=== PATIENT | male | born 1980 | race Two or more races ===

== ENCOUNTER 2020-09-21 13:47 | Emergency (ER) | payer MEDICAID ==
[~2020-09-21] VITALS: Ht 172.7 cm; Wt 70.8 kg
[2020-09-21 13:48] VITALS: BP 123/98
== END 2020-09-21 15:47 | disposition home or self-care (01) ==
LOC: ER 13:47
DX: S61.213A Laceration without foreign body of left middle finger without damage to nail, initial encounter (principal); S61.215A Laceration without foreign body of left ring finger without damage to nail, initial encounter; E11.9 Type 2 diabetes mellitus without complications; F12.10 Cannabis abuse, uncomplicated; W25.XXXA Contact with sharp glass, initial encounter; Y93.89 Activity, other specified; Y92.89 Other specified places as the place of occurrence of the external cause; Y99.8 Other external cause status
CPT/HCPCS: 12002; J2001

== ENCOUNTER 2021-10-20 08:27 | Emergency (ER) | payer MEDICAID ==
[~2021-10-20] VITALS: Ht 172.7 cm; Wt 72.6 kg
[2021-10-20 09:36] LABS: Basophils # (auto) 0 10 ^3/uL (0-0.2); Basophils % (auto) 0.4 % (0.0-2.0); Eosinophils # (auto) 0 10 ^3/uL (0-0.8); Hematocrit 42.5 % (41.0-53.0); Hemoglobin 14.4 g/dL (13.5-17.5); Lymphocytes # (auto) 1.2 10 ^3/uL (0.4-5.4); Lymphocytes % (auto) 10.5 % (10.0-50.0); Mean Corpuscular Hemoglobin 28.9 pg (28.0-32.0); Mean Corpuscular Hgb Conc. 33.8 g/dL (32.0-36.0); Mean Corpuscular Volume 85.4 fL (80.0-100.0); Monocytes # (auto) 0.5 10 ^3/uL (0-1.3); Monocytes % (auto) 4.8 % (0.0-12.0); Neutrophils # (auto) 9.5 10 ^3/uL (1.6-8.6); Neutrophils % (auto) 84.3 % (37.0-80.0); Red Blood Cells 4.98 10^6/uL (4.5-5.90); Red Cell Distribution Width 13.1 % (11.8-14.3); White Blood Cell 11.3 10^3/uL (4.4-10.8)
[2021-10-20] MEDS ORDERED: SODIUM CHLORIDE 0.9% 1,000 ML IV ONE ×2 (09:45)
[2021-10-20] MEDS ORDERED: InsuLIN REG 1unit/0.01ml Soln (100units/ml) IV ONE (09:45)
[2021-10-20 09:53] LABS: Albumin 3.7 g/dL (3.4-5.0); Calcium 8.6 mg/dL (8.5-10.1); Potassium 3.6 mmol/L (3.5-5.1)
[2021-10-20 09:57] LABS: BUN/Creatinine Ratio 20.9; Bilirubin, Total 0.6 mg/dL (0.2-1.0); Total Protein 7.6 g/dL (6.4-8.2)
[2021-10-20 15:00] VITALS: BP 149/88
[2021-10-20 16:08] LABS: Urine Bacteria NONE SEEN /hpf (None Seen); Urine Blood Negative /uL (Negative); Urine Specific Gravity 1.032 (1.001-1.035); Urine WBC 1 /hpf (0 - 3)
[2021-10-20] MEDS ORDERED: HYDROcodone-ACET 10/325MG TAB PO ONE (16:15)
== END 2021-10-20 16:28 | disposition home or self-care (01) ==
LOC: ER 08:27 → EDSEX 08:27 → EDBD 08:27 → ER 16:28
DX: R10.13 Epigastric pain (principal); R11.2 Nausea with vomiting, unspecified; E11.65 Type 2 diabetes mellitus with hyperglycemia; F12.10 Cannabis abuse, uncomplicated
CPT/HCPCS: 36415; 80053; 81001; 82962; 83690; 85025; 96360; 96361; 99285; J7030

== ENCOUNTER 2022-01-15 08:24 | Emergency (ER) | payer MEDICAID ==
[~2022-01-15] VITALS: Ht 172.7 cm; Wt 74.8 kg
[2022-01-15 10:21] LABS: Basophils # (auto) 0.1 10 ^3/uL (0-0.2); Basophils % (auto) 0.5 % (0.0-2.0); Eosinophils # (auto) 0 10 ^3/uL (0-0.8); Hematocrit 45.5 % (41.0-53.0); Hemoglobin 15.1 g/dL (13.5-17.5); Lymphocytes # (auto) 1.6 10 ^3/uL (0.4-5.4); Mean Corpuscular Hgb Conc. 33.2 g/dL (32.0-36.0); Mean Corpuscular Volume 87.3 fL (80.0-100.0); Monocytes # (auto) 0.6 10 ^3/uL (0-1.3); Monocytes % (auto) 5.8 % (0.0-12.0); Neutrophils # (auto) 8.6 10 ^3/uL (1.6-8.6); Neutrophils % (auto) 78.7 % (37.0-80.0); Nucleated Red Blood Cells % 0.2 %; Red Blood Cells 5.21 10^6/uL (4.5-5.90); Red Cell Distribution Width 13.3 % (11.8-14.3); White Blood Cell 10.9 10^3/uL (4.4-10.8)
[2022-01-15] MEDS ORDERED: SODIUM CHLORIDE 0.9% 2,000 ML IV ONE (10:30)
[2022-01-15] MEDS ORDERED: ALUM & MAG HYDROX-SIMETH LIQ(MAALOX) 30 ML PO ONE (10:30)
[2022-01-15] MEDS ORDERED: ONDANSETRON HCL 4 MG/2 ML VIAL IV ONE (10:30)
[2022-01-15] MEDS ORDERED: PANTOPRAZOLE 40 MG/10 ML VIAL INJ IV ONE (10:30)
[2022-01-15 10:32] LABS: BUN/Creatinine Ratio 20.9; Calcium 6.6 mg/dL (8.5-10.1); Magnesium 1.8 mg/dL (1.6-2.6)
[2022-01-15 10:39] LABS: INR 1.11 (0.9-1.15); Potassium 2.4 mmol/L (3.5-5.1)
[2022-01-15] MEDS ORDERED: hydrALAZINE HCL 10 MG TAB PO ONE (11:45)
[2022-01-15 12:12] VITALS: BP 142/88
[2022-01-15] MEDS ORDERED: OXYCODONE W/ ACETAMINOPHEN 5/325MG TABLET PO ONE (13:45)
[2022-01-15] MEDS ORDERED: FAMO-12 PO ×2 (13:48→14:17)
[2022-01-15] MEDS ORDERED: POTASSIUM EFFERVESENT TAB 25 MEQ GT ONE (14:00)
== END 2022-01-15 14:22 | disposition home or self-care (01) ==
LOC: ER 08:24 → EDBD 08:24 → ER 14:22
DX: K21.9 Gastro-esophageal reflux disease without esophagitis (principal); E11.9 Type 2 diabetes mellitus without complications; F12.10 Cannabis abuse, uncomplicated
CPT/HCPCS: 36415; 76705; 80048; 82150; 83690; 83735; 85025; 85610; 96361; 96374; 96375; 99285; C9113; J2405; J7030

== ENCOUNTER 2022-02-18 05:29 | Emergency (ER) | payer MEDICAID ==
[~2022-02-18 05:29] MED LIST: FAMO-12 PO
== END 2022-02-18 05:51 | disposition left against medical advice (07) ==
LOC: ER 05:29 → EDBD 05:29 → ER 05:51
DX: R10.9 Unspecified abdominal pain (principal); Z53.21 Procedure and treatment not carried out due to patient leaving prior to being seen by health care provider

== ENCOUNTER 2022-08-28 19:05 | Emergency (ER) | payer MEDICAID ==
[~2022-08-28] VITALS: Ht 172.7 cm; Wt 65.8 kg
[2022-08-28 19:33] VITALS: BP 143/91
[2022-08-28] MEDS ORDERED: ONDANSETRON HCL 4 MG/2 ML VIAL IV ONE (20:00)
[2022-08-28] MEDS ORDERED: SODIUM CHLORIDE 0.9% 1,000 ML IV ONE (20:00)
[2022-08-28 20:33] LABS: Basophils # (auto) 0.1 10 ^3/uL (0-0.2); Basophils % (auto) 0.7 % (0.0-2.0); Eosinophils # (auto) 0 10 ^3/uL (0-0.8); Hematocrit 48.9 % (41.0-53.0); Hemoglobin 16.3 g/dL (13.5-17.5); Lymphocytes # (auto) 1.5 10 ^3/uL (0.4-5.4); Lymphocytes % (auto) 13.3 % (10.0-50.0); Mean Corpuscular Hemoglobin 28.5 pg (28.0-32.0); Mean Corpuscular Hgb Conc. 33.4 g/dL (32.0-36.0); Mean Corpuscular Volume 85.6 fL (80.0-100.0); Monocytes # (auto) 0.7 10 ^3/uL (0-1.3); Monocytes % (auto) 6.1 % (0.0-12.0); Neutrophils # (auto) 9.1 10 ^3/uL (1.6-8.6); Neutrophils % (auto) 79.9 % (37.0-80.0); Red Blood Cells 5.72 10^6/uL (4.5-5.90); Red Cell Distribution Width 13.4 % (11.8-14.3); White Blood Cell 11.4 10^3/uL (4.4-10.8)
[2022-08-28 20:36] LABS: Urine Bacteria NONE SEEN /hpf (None Seen); Urine Blood Negative /uL (Negative); Urine Hyaline Cast MOD /lpf (0 - 2); Urine Mucus FEW (None Seen); Urine Specific Gravity 1.038 (1.001-1.035); Urine WBC 5 /hpf (0 - 3)
[2022-08-28 20:43] LABS: Albumin 4.5 g/dL (3.4-5.0); BUN/Creatinine Ratio 13.7; Calcium 9.7 mg/dL (8.5-10.1); Magnesium 2.4 mg/dL (1.6-2.6); Potassium 3.6 mmol/L (3.5-5.1)
[2022-08-28 20:46] LABS: Total Protein 8.4 g/dL (6.4-8.2)
[2022-08-28] MEDS ORDERED: INSULIN LISPRO (HUMAN) 100 UNITS/ML ML SC ONE (21:15)
== END 2022-08-29 00:25 | disposition left against medical advice (07) ==
LOC: ER 19:05
DX: R10.13 Epigastric pain (principal); R11.2 Nausea with vomiting, unspecified; F12.10 Cannabis abuse, uncomplicated; E11.9 Type 2 diabetes mellitus without complications; R06.02 Shortness of breath; Z20.822 Contact with and (suspected) exposure to COVID-19
CPT/HCPCS: 36415; 36600; 80053; 81001; 82805; 82962; 83735; 83880; 85025; 87426; 87804; 96361; 96372; 96374; 99284; J1815; J2405; J7030

== ENCOUNTER 2022-08-29 10:29 | Inpatient (IN) | payer MEDICAID ==
[~2022-08-29] VITALS: Ht 172.7 cm; Wt 68.0 kg
[2022-08-29 11:06] LABS: Basophils # (auto) 0.1 10 ^3/uL (0-0.2); Basophils % (auto) 0.7 % (0.0-2.0); Eosinophils # (auto) 0 10 ^3/uL (0-0.8); Eosinophils % (auto) 0.2 % (0.0-7.0); Hematocrit 44.8 % (41.0-53.0); Hemoglobin 15.3 g/dL (13.5-17.5); Lymphocytes # (auto) 1.9 10 ^3/uL (0.4-5.4); Lymphocytes % (auto) 18.8 % (10.0-50.0); Mean Corpuscular Hgb Conc. 34.1 g/dL (32.0-36.0); Mean Corpuscular Volume 85.1 fL (80.0-100.0); Monocytes # (auto) 0.6 10 ^3/uL (0-1.3); Monocytes % (auto) 6.2 % (0.0-12.0); Neutrophils # (auto) 7.3 10 ^3/uL (1.6-8.6); Neutrophils % (auto) 74.1 % (37.0-80.0); Nucleated Red Blood Cells % 0.1 %; Red Blood Cells 5.27 10^6/uL (4.5-5.90); Red Cell Distribution Width 13.3 % (11.8-14.3); White Blood Cell 9.9 10^3/uL (4.4-10.8)
[2022-08-29] MEDS ORDERED: SODIUM CHLORIDE 0.9% 1,000 ML IV ONE ×2 (11:15→14:45)
[2022-08-29] MEDS ORDERED: METOCLOPRAMIDE HCL 5MG/ml INJ 2ml VIAL IV ONE (11:15)
[2022-08-29] MEDS ORDERED: FAMOTIDINE (10MG/ML) 2ML VL IV ONE (11:15)
[2022-08-29] MEDS ORDERED: diphenhdrAMINE HCL 50 MG/1 ML VL IM ONE (11:15)
[2022-08-29 11:30] LABS: Calcium 9.3 mg/dL (8.5-10.1); Potassium 3.7 mmol/L (3.5-5.1)
[2022-08-29 11:34] LABS: BUN/Creatinine Ratio 21.6; Bilirubin, Total 1.2 mg/dL (0.2-1.0); Total Protein 7.8 g/dL (6.4-8.2)
[2022-08-29 14:38] LABS: Urine Blood Negative /uL (Negative); Urine Specific Gravity 1.027 (1.001-1.035)
[2022-08-29 14:52] LABS: Alcohol, Urine < 3.0 mg/dL (0-10); Amphetamine Screen, Urine NEGATIVE (NEGATIVE); Barbiturate Scree,Urine NEGATIVE (NEGATIVE); Benzodiazephine Screen, Urine NEGATIVE (NEGATIVE); Cannabinoid Screen, Urine POSITIVE (NEGATIVE); Cocaine Screen, Urine NEGATIVE (NEGATIVE); Opiate Scree,Urine NEGATIVE (NEGATIVE); Phencyclidine Screen, Urine NEGATIVE (NEGATIVE)
[2022-08-29] MEDS ORDERED: IOHEXOL 300 MG/ML 100ML BOTTLE IJ ONE (14:52)
[2022-08-29] MEDS ORDERED: DEXTROSE (50%) 50ML SYRG IV PRN (21:15)
[2022-08-29] MEDS ORDERED: MORPHINE SULFATE INJ 2 MG/ml SYRG IV PRN ×2 (21:15→22:15)
[2022-08-29] MEDS ORDERED: ONDANSETRON HCL 4 MG/2 ML VIAL IV PRN (21:15)
[2022-08-29] MEDS ORDERED: ACETAMINOPHEN 325 MG TAB PO PRN (21:15)
[2022-08-29] MEDS ORDERED: TEMAZEPAM 15 MG CAP PO PRN (21:15)
[2022-08-29] MEDS ORDERED: SODIUM CHLORIDE 0.9% 1,000 ML IV SCH (21:15)
[2022-08-29] MEDS ORDERED: NITROGLYCERIN 0.4 MG SL TAB SL PRN (22:15)
[2022-08-30] MEDS: HYDROcodone-ACET 5/325MG TAB PO PRN ×2 (00:06→10:58)
[2022-08-30] MEDS: ACCU-CHEK COMFORT CURVE STRIP VI SCH ×3 (00:18→12:00)
[2022-08-30] MEDS: InsuLIN REG 1unit/0.01ml Soln (100units/ml) SC SCH ×3 (00:27→12:00)
[2022-08-30 06:36] LABS: Basophils # (auto) 0.1 10 ^3/uL (0-0.2); Basophils % (auto) 0.6 % (0.0-2.0); Eosinophils # (auto) 0.1 10 ^3/uL (0-0.8); Eosinophils % (auto) 0.8 % (0.0-7.0); Hematocrit 42.4 % (41.0-53.0); Hemoglobin 14.1 g/dL (13.5-17.5); Lymphocytes # (auto) 2.9 10 ^3/uL (0.4-5.4); Mean Corpuscular Hemoglobin 28.1 pg (28.0-32.0); Mean Corpuscular Hgb Conc. 33.3 g/dL (32.0-36.0); Mean Corpuscular Volume 84.4 fL (80.0-100.0); Monocytes # (auto) 0.7 10 ^3/uL (0-1.3); Neutrophils # (auto) 4.6 10 ^3/uL (1.6-8.6); Neutrophils % (auto) 55.6 % (37.0-80.0); Nucleated Red Blood Cells % 0.1 %; Red Blood Cells 5.02 10^6/uL (4.5-5.90); Red Cell Distribution Width 13.3 % (11.8-14.3); White Blood Cell 8.2 10^3/uL (4.4-10.8)
[2022-08-30 07:16] LABS: Potassium 3.3 mmol/L (3.5-5.1)
[2022-08-30 07:27] LABS: Albumin 3.5 g/dL (3.4-5.0); BUN/Creatinine Ratio 28.2; Bilirubin, Total 1.1 mg/dL (0.2-1.0); Calcium 8.7 mg/dL (8.5-10.1); Total Protein 7.2 g/dL (6.4-8.2)
[2022-08-30] MEDS: FAMOTIDINE (10MG/ML) 2ML VL IV SCH ×2 (10:00→11:09)
[2022-08-30 15:25] VITALS: BP 141/83
== END 2022-08-30 16:22 | disposition home or self-care (01) | DRG 241 ==
LOC: ER 10:29 → EDUNIT# 10:29 → EDBD 10:29 → OVERFLOW 22:03
PROVIDERS: ADMIT Nurse Practitioner Family; ATTEND Nurse Practitioner Family
DX: K27.9 Peptic ulcer, site unspecified, unspecified as acute or chronic, without hemorrhage or perforation (principal); E11.10 Type 2 diabetes mellitus with ketoacidosis without coma; E87.1 Hypo-osmolality and hyponatremia; E86.0 Dehydration; Z20.822 Contact with and (suspected) exposure to COVID-19; K21.9 Gastro-esophageal reflux disease without esophagitis; Z79.4 Long term (current) use of insulin
CPT/HCPCS: 36415; 71046; 74177; 80053; 80307; 81001; 82010; 82962; 83036; 83690; 84484; 85025; 93005; 96361; 96372; 96374; 96375; G0378; J1815; J3490

== ENCOUNTER 2023-10-30 08:35 | Emergency (ER) | payer MEDICAID ==
[~2023-10-30] VITALS: Ht 172.7 cm; Wt 76.9 kg
[2023-10-30 09:23] VITALS: BP 134/83; PULSE 88; RESP 16; TEMP 97.9; O2SAT 97
[2023-10-30] MEDS: KETOROLAC TROMETH 60MG/2ML VIAL IM ONE (09:51)
[2023-10-30] MEDS ORDERED: IBUP1TAB5 PO (10:03)
[2023-10-30] MEDS ORDERED: CYCL-839 PO (10:03)
== END 2023-10-30 10:14 | disposition home or self-care (01) ==
LOC: ER 08:35
DX: S93.401A Sprain of unspecified ligament of right ankle, initial encounter (principal); E11.9 Type 2 diabetes mellitus without complications; Z79.899 Other long term (current) drug therapy; X50.1XXA Overexertion from prolonged static or awkward postures, initial encounter; Y93.89 Activity, other specified; Y92.89 Other specified places as the place of occurrence of the external cause; Y99.8 Other external cause status
CPT/HCPCS: 29515; 73610; 96372; 99283; J1885

== ENCOUNTER 2023-11-10 06:51 | Inpatient (IN) | payer MEDICAID ==
[~2023-11-10] VITALS: Ht 172.7 cm; Wt 83.8 kg
[~2023-11-10 06:51] MED LIST changes: +CYCL-839 PO
[2023-11-10 07:25] VITALS: PULSE 103; RESP 18; RESP 22; O2SAT 95
[2023-11-10 07:46] LABS: Basophils # (auto) 0 10 ^3/uL (0-0.2); Basophils % (auto) 0.1 % (0.0-2.0); Eosinophils # (auto) 0 10 ^3/uL (0-0.8); Hematocrit 48.1 % (41.0-53.0); Lymphocytes # (auto) 0.4 10 ^3/uL (0.4-5.4); Lymphocytes % (auto) 2.4 % (10.0-50.0); Mean Corpuscular Hemoglobin 28.7 pg (28.0-32.0); Mean Corpuscular Hgb Conc. 33.3 g/dL (32.0-36.0); Mean Corpuscular Volume 86.2 fL (80.0-100.0); Monocytes # (auto) 1.3 10 ^3/uL (0-1.3); Monocytes % (auto) 8.1 % (0.0-12.0); Neutrophils # (auto) 14.3 10 ^3/uL (1.6-8.6); Neutrophils % (auto) 89.4 % (37.0-80.0); Nucleated Red Blood Cells % 0.1 %; Red Blood Cells 5.58 10^6/uL (4.5-5.90); Red Cell Distribution Width 13.7 % (11.8-14.3)
[2023-11-10] MEDS: ONDANSETRON HCL 4 MG/2 ML VIAL IV ONE (07:59)
[2023-11-10] MEDS: MORPHINE SULFATE 4 MG/ML SYR/VIAL IV ONE (08:00)
[2023-11-10] MEDS: SODIUM CHLORIDE 0.9% 1,000 ML IVB ONE (08:00)
[2023-11-10 08:18] LABS: Alanine Aminotransferase 27 U/L (7-40); Albumin 5.2 g/dL (3.2-4.8); Alkaline Phosphatase 118 U/L (46-116); Anion Gap 13 (5-15); Aspartate Aminotransferase 20 U/L (13-40); BUN/Creatinine Ratio 12.3 (10.0-20.0); Bilirubin, Total 0.6 mg/dL (0.2-1.0); Blood Urea Nitrogen 31 mg/dL (9-23); Calcium 10.6 mg/dL (8.5-10.1); Carbon Dioxide 25 mmol/L (20-30); Chloride 96 mmol/L (98-107); Potassium 3.6 mmol/L (3.5-5.1); Sodium 134 mmol/L (136-145)
[2023-11-10 08:28] LABS: Glucose 536 mg/dL (74-106)
[2023-11-10 09:15] LABS: Lipase 35 U/L (12-53)
[2023-11-10] MEDS ORDERED: INSULIN DRIP 100 UNIT/100ML 100 ML IV SCH ×4 (09:15)
[2023-11-10] MEDS ORDERED: D5W/SOD CHL 0.45%/KCL 20MEQ 1,000 ML IV SCH ×2 (09:15)
[2023-11-10] MEDS ORDERED: POTASSIUM CHL 20MEQ/100ML 100 ML IV PRN (09:15)
[2023-11-10] MEDS ORDERED: POTASSIUM CHL 20MEQ/100ML 200 ML IV PRN (09:15)
[2023-11-10] MEDS ORDERED: SODIUM CHLORIDE 0.9% 1,000 ML IV SCH ×3 (09:15→15:15)
[2023-11-10] MEDS ORDERED: SOD CHL 0.9%/ KCL 20MEQ 1,000 ML IV SCH (09:15)
[2023-11-10] MEDS ORDERED: DEXTROSE (50%) 50ML SYRG IV PRN ×2 (09:15→11:00)
[2023-11-10] MEDS ORDERED: InsuLIN REG 1unit/0.01ml Soln (100units/ml) SC PRN ×2 (09:15)
[2023-11-10 09:36] LABS: Base Excess 1.4 mmol/L (-2.0-2.0)
[2023-11-10] MEDS: InsuLIN REG 1unit/0.01ml Soln (100units/ml) IV ONE (09:47)
[2023-11-10] MEDS: INSULIN LANTUS (GLARGINE) 1 /0.01ml (100units/ml) SC ONE (09:48)
[2023-11-10] MEDS: MAGNESIUM SULFATE 1GM/100ML 200 ML IV ONE (10:02)
[2023-11-10] MEDS ORDERED: ACCU-CHEK COMFORT CURVE STRIP VI SCH ×2 (10:30→12:00)
[2023-11-10] MEDS ORDERED: NITROGLYCERIN 0.4 MG SL TAB SL PRN (10:45)
[2023-11-10] MEDS ORDERED: MORPHINE SULFATE INJ 2 MG/ml SYRG IV PRN (10:45)
[2023-11-10 11:22] LABS: Chloride 102 mmol/L (98-107); Potassium 3.5 mmol/L (3.5-5.1); Sodium 141 mmol/L (136-145)
[2023-11-10 11:23] LABS: Anion Gap 14 (5-15); Calcium 10.2 mg/dL (8.5-10.1); Carbon Dioxide 25 mmol/L (20-30)
[2023-11-10 11:28] LABS: BUN/Creatinine Ratio 9.3 (10.0-20.0); Blood Urea Nitrogen 20 mg/dL (9-23)
[2023-11-10] MEDS ORDERED: InsuLIN REG 1unit/0.01ml Soln (100units/ml) SC SCH ×5 (11:30→22:00)
[2023-11-10 11:35] LABS: Glucose 327 mg/dL (74-106)
[2023-11-10 11:46] LABS: Lipase 40 U/L (12-53)
[2023-11-10] MEDS: PANTOPRAZOLE 40 MG/10 ML VIAL INJ IV ONE (11:46)
[2023-11-10 11:47] LABS: Amylase 47 U/L (30-118)
[2023-11-10 12:32] LABS: Blood Alcohol 4.1 mg/dL (<10)
[2023-11-10 12:40] LABS: Lactic Acid w/Reflex 2.6 mmol/L (0.4-2.0)
[2023-11-10] MEDS: InsuLIN REG 1unit/0.01ml Soln (100units/ml) SC SCH (13:11)
[2023-11-10] MEDS: ACCU-CHEK COMFORT CURVE STRIP VI SCH (13:12)
[2023-11-10] MEDS: SODIUM CHLORIDE 0.9% 1,000 ML IV SCH (13:12)
[2023-11-10] MEDS: metroNIDAZOLE 500MG/100ML 100 ML IV SCH (14:36)
[2023-11-10] MEDS: cefTRIAXone 1GM/50ML D5W 50 ML IV ONE (14:36)
[2023-11-10 16:09] LABS: Anion Gap 7 (5-15); Carbon Dioxide 28 mmol/L (20-30); Chloride 106 mmol/L (98-107); Potassium 3.4 mmol/L (3.5-5.1); Sodium 141 mmol/L (136-145)
[2023-11-10 16:10] LABS: Calcium 9.1 mg/dL (8.5-10.1)
[2023-11-10 16:15] LABS: BUN/Creatinine Ratio 14.3 (10.0-20.0); Blood Urea Nitrogen 18 mg/dL (9-23)
[2023-11-10 16:19] LABS: Glucose 139 mg/dL (74-106)
[2023-11-10] MEDS: POTASSIUM CHL 20 Meq TABLET PO ONE (17:57)
[2023-11-10 20:00] VITALS: PULSE 89; RESP 20; O2SAT 100
[2023-11-10 20:15] LABS: Free T3 4.4 pg/mL (2.3-4.2)
[2023-11-10 20:16] LABS: Free T4 (Free Thyroxine) 1.48 ng/dL (0.89-1.76)
[2023-11-10 21:21] LABS: Chloride 105 mmol/L (98-107); Potassium 3.9 mmol/L (3.5-5.1); Sodium 140 mmol/L (136-145)
[2023-11-10 21:22] LABS: Anion Gap 7 (5-15); Calcium 9.1 mg/dL (8.5-10.1); Carbon Dioxide 28 mmol/L (20-30)
[2023-11-10 21:27] LABS: BUN/Creatinine Ratio 13.5 (10.0-20.0); Blood Urea Nitrogen 15 mg/dL (9-23); Glucose 112 mg/dL (74-106)
[2023-11-10] MEDS: PANTOPRAZOLE 40 MG/10 ML VIAL INJ IV SCH (21:42)
[2023-11-10] MEDS: MORPHINE SULFATE INJ 2 MG/ml SYRG IV PRN (22:40)
[2023-11-11 03:36] LABS: Urine Bacteria NONE SEEN /hpf (None Seen); Urine Blood Negative /uL (Negative); Urine Clarity Clear (Clear); Urine Color Yellow (Yellow); Urine Hyaline Cast FEW /lpf (0 - 2); Urine Protein, UAD 1+ (Negative); Urine Specific Gravity 1.027 (1.001-1.035); Urine Urobilinogen Normal (Negative); Urine WBC 1 /hpf (0 - 3)
[2023-11-11 03:38] LABS: Amphetamine Screen, Urine Neg (NEGATIVE); Barbiturate Scree,Urine Neg (NEGATIVE); Benzodiazephine Screen, Urine Neg (NEGATIVE); Cannabinoid Screen, Urine Pos (NEGATIVE); Cocaine Screen, Urine Neg (NEGATIVE); Opiate Scree,Urine Neg (NEGATIVE); Phencyclidine Screen, Urine Neg (NEGATIVE)
[2023-11-11 03:39] LABS: Creatinine, Urine 223.69 mg/dL (30.0-125.0)
[2023-11-11 05:07] LABS: Rapid Influenza A Negative (Negative); Rapid Influenza B Negative (Negative)
[2023-11-11 05:08] LABS: COVID19 ANTIGEN SOFIA FIA POSITIVE (NEGATIVE)
[2023-11-11 05:47] VITALS: PULSE 73; RESP 8; O2SAT 97
[2023-11-11 06:00] LABS: Basophils # (auto) 0 10 ^3/uL (0-0.2); Basophils % (auto) 0.3 % (0.0-2.0); Eosinophils # (auto) 0 10 ^3/uL (0-0.8); Eosinophils % (auto) 0.1 % (0.0-7.0); Hematocrit 44.4 % (41.0-53.0); Hemoglobin 14.5 g/dL (13.5-17.5); Lymphocytes # (auto) 1.3 10 ^3/uL (0.4-5.4); Lymphocytes % (auto) 13.3 % (10.0-50.0); Mean Corpuscular Hemoglobin 28.7 pg (28.0-32.0); Mean Corpuscular Hgb Conc. 32.7 g/dL (32.0-36.0); Mean Corpuscular Volume 87.7 fL (80.0-100.0); Monocytes # (auto) 1.3 10 ^3/uL (0-1.3); Monocytes % (auto) 13.9 % (0.0-12.0); Neutrophils % (auto) 72.4 % (37.0-80.0); Red Blood Cells 5.06 10^6/uL (4.5-5.90); Red Cell Distribution Width 14.1 % (11.8-14.3); White Blood Cell 9.6 10^3/uL (4.4-10.8)
[2023-11-11 06:11] LABS: Chloride 104 mmol/L (98-107); Potassium 3.5 mmol/L (3.5-5.1); Sodium 139 mmol/L (136-145)
[2023-11-11 06:12] LABS: Anion Gap 9 (5-15); Carbon Dioxide 26 mmol/L (20-30)
[2023-11-11 06:13] LABS: Calcium 8.6 mg/dL (8.7-10.4)
[2023-11-11 06:18] LABS: Blood Urea Nitrogen 16 mg/dL (9-23); Glucose 137 mg/dL (74-106)
[2023-11-11 08:00] VITALS: PULSE 74; RESP 17; O2SAT 95
[2023-11-11] MEDS ORDERED: DEXTROSE (50%) 50ML SYRG IV PRN (08:15)
[2023-11-11] MEDS ORDERED: cefTRIAXone 1GM/50ML D5W 50 ML IV SCH (09:00)
[2023-11-11] MEDS: INSULIN LANTUS (GLARGINE) 1 /0.01ml (100units/ml) SC SCH (10:33)
[2023-11-11] MEDS: ACCU-CHEK COMFORT CURVE STRIP VI SCH (12:35)
[2023-11-11] MEDS: InsuLIN REG 1unit/0.01ml Soln (100units/ml) SC SCH (12:38)
[2023-11-11] MEDS ORDERED: INSU100I4 SC (16:24)
[2023-11-11] MEDS ORDERED: INSUINJ37 SC (16:24)
[2023-11-11 17:00] VITALS: BP 111/71; PULSE 84; RESP 17; TEMP 98.7; O2SAT 99
[2023-11-11 18:03] VITALS: PULSE 84; RESP 16; O2SAT 96
[2023-11-11 20:00] VITALS: BP 149/70; PULSE 75; PULSE 98; RESP 18; TEMP 98.6; O2SAT 100
[2023-11-11 22:00] VITALS: BP 149/70; PULSE 98; RESP 18; TEMP 98.6; O2SAT 100
[2023-11-12 04:57] LABS: Basophils # (auto) 0 10 ^3/uL (0-0.2); Basophils % (auto) 0.3 % (0.0-2.0); Eosinophils # (auto) 0 10 ^3/uL (0-0.8); Hemoglobin 14.9 g/dL (13.5-17.5); Lymphocytes # (auto) 1.4 10 ^3/uL (0.4-5.4); Lymphocytes % (auto) 17.1 % (10.0-50.0); Mean Corpuscular Hemoglobin 28.7 pg (28.0-32.0); Mean Corpuscular Hgb Conc. 33.1 g/dL (32.0-36.0); Mean Corpuscular Volume 86.8 fL (80.0-100.0); Monocytes # (auto) 0.8 10 ^3/uL (0-1.3); Monocytes % (auto) 9.6 % (0.0-12.0); Red Blood Cells 5.18 10^6/uL (4.5-5.90); Red Cell Distribution Width 13.7 % (11.8-14.3); White Blood Cell 8.2 10^3/uL (4.4-10.8)
[2023-11-12 05:00] VITALS: BP 158/90; PULSE 87; RESP 19; TEMP 98; O2SAT 99
[2023-11-12 05:10] LABS: Anion Gap 7 (5-15); Carbon Dioxide 29 mmol/L (20-30); Chloride 100 mmol/L (98-107); Sodium 136 mmol/L (136-145)
[2023-11-12 05:16] LABS: Glucose 129 mg/dL (74-106)
[2023-11-12 05:17] LABS: BUN/Creatinine Ratio 12.4 (10.0-20.0); Blood Urea Nitrogen 12 mg/dL (9-23); Magnesium 1.9 mg/dL (1.6-2.6)
[2023-11-12 07:30] VITALS: BP 138/74; PULSE 87; RESP 18; TEMP 98; O2SAT 99
[2023-11-12 08:00] VITALS: PULSE 74
[2023-11-12 08:32] VITALS: BP 135/77; PULSE 79; RESP 18; TEMP 98.3; O2SAT 100
[2023-11-12] MEDS ORDERED: ASCO500T11 PO (09:46)
[2023-11-12] MEDS ORDERED: PANT40TA2 PO (09:46)
[2023-11-12] MEDS ORDERED: SUCR1TAB22 OR (09:46)
[2023-11-12 12:47] VITALS: BP 133/78; PULSE 74; RESP 17; TEMP 98; O2SAT 96
== END 2023-11-12 14:00 | disposition left against medical advice (07) | DRG 241 ==
LOC: EDBD 06:51 → ER 06:51 → TELE 10:43 → TELE-CENTR 11-11 14:22
PROVIDERS: ADMIT Internal Medicine Geriatric Medicine; ATTEND Internal Medicine Geriatric Medicine
DX: K27.9 Peptic ulcer, site unspecified, unspecified as acute or chronic, without hemorrhage or perforation (principal); U07.1 COVID-19; N17.9 Acute kidney failure, unspecified; E10.21 Type 1 diabetes mellitus with diabetic nephropathy; E86.0 Dehydration; E87.6 Hypokalemia; F32.A Depression, unspecified; E07.81 Sick-euthyroid syndrome; E78.5 Hyperlipidemia, unspecified; E10.65 Type 1 diabetes mellitus with hyperglycemia; K21.9 Gastro-esophageal reflux disease without esophagitis; Z20.822 Contact with and (suspected) exposure to COVID-19; Z79.4 Long term (current) use of insulin; Z87.11 Personal history of peptic ulcer disease
CPT/HCPCS: 36415; 36600; 71046; 74176; 76775; 80048; 80053; 80307; 80320; 81001; 82010; 82150; 82570; 82805; 82962; 83036; 83605; 83615; 83690; 83735; 83880; 83930; 84100; 84300; 84439; 84443; 84478; 84481; 84484; 85025; 87040; 87081; 87426; 87804; 93005; 96361; 96365; 96372; 96375; 99291; C9113; G0378; J1815; J2405; J3490

== ENCOUNTER 2023-12-18 12:01 | Inpatient (IN) | payer MEDICAID ==
[~2023-12-18] VITALS: Ht 172.7 cm; Wt 71.0 kg
[~2023-12-18 12:01] MED LIST changes: +ASCO500T11 PO; +INSU100I4 SC; +INSUINJ37 SC; +PANT40TA2 PO; +SUCR1TAB31 OR
[2023-12-18 12:30] VITALS: PULSE 104; RESP 19; O2SAT 97
[2023-12-18] MEDS: SODIUM CHLORIDE 0.9% 2,000 ML IV ONE (13:20)
[2023-12-18] MEDS ORDERED: SODIUM CHLORIDE 0.9% 1,000 ML IVB ONE (13:30)
[2023-12-18] MEDS: HYDROmorphone HCL 2 MG/ML VL/or syr IV ONE ×2 (13:44→18:31)
[2023-12-18] MEDS: ONDANSETRON HCL 4 MG/2 ML VIAL IV ONE (13:52)
[2023-12-18 14:18] LABS: Basophils # (auto) 0 10 ^3/uL (0-0.2); Basophils % (auto) 0.1 % (0.0-2.0); Eosinophils # (auto) 0 10 ^3/uL (0-0.8); Hematocrit 38.6 % (41.0-53.0); Hemoglobin 12.9 g/dL (13.5-17.5); Lymphocytes % (auto) 10.1 % (10.0-50.0); Mean Corpuscular Hemoglobin 29.1 pg (28.0-32.0); Mean Corpuscular Hgb Conc. 33.3 g/dL (32.0-36.0); Mean Corpuscular Volume 87.2 fL (80.0-100.0); Monocytes # (auto) 0.6 10 ^3/uL (0-1.3); Monocytes % (auto) 6.7 % (0.0-12.0); Neutrophils % (auto) 83.1 % (37.0-80.0); Red Blood Cells 4.43 10^6/uL (4.5-5.90); Red Cell Distribution Width 13.4 % (11.8-14.3); White Blood Cell 9.7 10^3/uL (4.4-10.8)
[2023-12-18 14:38] LABS: Alanine Aminotransferase 14 U/L (7-40); Alkaline Phosphatase 90 U/L (46-116); Anion Gap 4 (5-15); Aspartate Aminotransferase 14 U/L (13-40); BUN/Creatinine Ratio 11.6 (10.0-20.0); Blood Urea Nitrogen 17 mg/dL (9-23); Calcium 8.7 mg/dL (8.7-10.4); Carbon Dioxide 31 mmol/L (20-30); Chloride 96 mmol/L (98-107); Lipase 57 U/L (12-53); Magnesium 1.9 mg/dL (1.6-2.6); Potassium 3.7 mmol/L (3.5-5.1); Sodium 131 mmol/L (136-145)
[2023-12-18 14:39] LABS: Bilirubin, Total 0.5 mg/dL (0.2-1.0); Total Protein 6.7 g/dL (5.7-8.2)
[2023-12-18 14:47] LABS: Glucose 524 mg/dL (74-106)
[2023-12-18] MEDS: SODIUM CHLORIDE 0.9% 1,000 ML IV ONE ×2 (14:53→15:57)
[2023-12-18] MEDS: InsuLIN REG 1unit/0.01ml Soln (100units/ml) IV ONE (15:24)
[2023-12-18 15:50] LABS: Urine Bacteria FEW /hpf (None Seen); Urine Blood Negative /uL (Negative); Urine Clarity Clear (Clear); Urine Color Colorless (Yellow); Urine Protein, UAD Negative (Negative); Urine Specific Gravity 1.031 (1.001-1.035); Urine Urobilinogen Normal (Negative); Urine WBC 1 /hpf (0 - 3)
[2023-12-18] MEDS ORDERED: ONDANSETRON HCL 4 MG/2 ML VIAL IV PRN (18:45)
[2023-12-18] MEDS ORDERED: DOCUSATE SOD 100 MG CAP PO PRN (18:45)
[2023-12-18 19:30] VITALS: PULSE 94; RESP 16; O2SAT 100
[2023-12-18] MEDS: SODIUM CHLORIDE 0.9% 1,000 ML IV SCH (19:30)
[2023-12-18] MEDS ORDERED: DEXTROSE (50%) 50ML SYRG IV PRN (21:45)
[2023-12-18 22:00] VITALS: BP 148/93; PULSE 90; RESP 17; TEMP 98.6; O2SAT 100
[2023-12-18] MEDS: ACCU-CHEK COMFORT CURVE STRIP VI SCH (22:00)
[2023-12-18] MEDS: HYDROmorphone HCL 2 MG/ML VL/or syr IV PRN (22:31)
[2023-12-18] MEDS: SUCRALFATE 1 GM TAB PO SCH (22:31)
[2023-12-19] VITALS (9 sets, daily range): BP systolic 105–148; BP diastolic 76–93; PULSE 73–90; RESP 17–20; TEMP 97.4–98.8; O2SAT 99–100
[2023-12-19] MEDS ORDERED: PNEUMOCOCCAL VACC POLYS 25 MCG/0.5 ML VIAL IM ONE (02:15)
[2023-12-19] MEDS: InsuLIN REG 1unit/0.01ml Soln (100units/ml) SC SCH ×3 (06:35→22:05)
[2023-12-19 08:14] LABS: Basophils # (auto) 0 10 ^3/uL (0-0.2); Basophils % (auto) 0.4 % (0.0-2.0); Eosinophils # (auto) 0 10 ^3/uL (0-0.8); Eosinophils % (auto) 0.5 % (0.0-7.0); Hematocrit 36.8 % (41.0-53.0); Hemoglobin 12.4 g/dL (13.5-17.5); Lymphocytes # (auto) 2.3 10 ^3/uL (0.4-5.4); Lymphocytes % (auto) 24.7 % (10.0-50.0); Mean Corpuscular Hemoglobin 29.2 pg (28.0-32.0); Mean Corpuscular Hgb Conc. 33.8 g/dL (32.0-36.0); Mean Corpuscular Volume 86.3 fL (80.0-100.0); Monocytes # (auto) 0.6 10 ^3/uL (0-1.3); Monocytes % (auto) 6.4 % (0.0-12.0); Neutrophils # (auto) 6.4 10 ^3/uL (1.6-8.6); Nucleated Red Blood Cells % 0.1 %; Red Blood Cells 4.26 10^6/uL (4.5-5.90); White Blood Cell 9.5 10^3/uL (4.4-10.8)
[2023-12-19 08:43] LABS: Alanine Aminotransferase 16 U/L (7-40); Albumin 3.6 g/dL (3.2-4.8); Alkaline Phosphatase 76 U/L (46-116); Anion Gap 3 (5-15); Aspartate Aminotransferase 19 U/L (13-40); BUN/Creatinine Ratio 14.3 (10.0-20.0); Bilirubin, Total 0.8 mg/dL (0.2-1.0); Blood Urea Nitrogen 10 mg/dL (9-23); Calcium 8.3 mg/dL (8.5-10.1); Carbon Dioxide 30 mmol/L (20-30); Chloride 103 mmol/L (98-107); Potassium 3.5 mmol/L (3.5-5.1); Total Protein 5.6 g/dL (5.7-8.2)
[2023-12-19 09:00] LABS: Glucose 190 mg/dL (74-106); Sodium 136 mmol/L (136-145)
[2023-12-19 09:19] LABS: Lipase 53 U/L (12-53)
[2023-12-19] MEDS: PANTOPRAZOLE 40 MG/10 ML VIAL INJ IV SCH (09:19)
[2023-12-19] MEDS ORDERED: DEXTROSE (50%) 50ML SYRG IV PRN (12:30)
[2023-12-19] MEDS ORDERED: METR-344 PO (15:49)
[2023-12-19] MEDS ORDERED: ZOFR4T PO (15:49)
[2023-12-19] MEDS ORDERED: CIPR-173 PO (15:49)
[2023-12-19] MEDS ORDERED: INSLANTI SC (15:49)
[2023-12-19] MEDS ORDERED: METH-1181 PO (15:49)
[2023-12-19] MEDS: ACCU-CHEK COMFORT CURVE STRIP VI SCH (16:58)
[2023-12-20] VITALS (8 sets, daily range): BP systolic 132–159; BP diastolic 60–98; PULSE 70–83; RESP 17–20; TEMP 97.7–99.4; O2SAT 97–100
[2023-12-21 01:28] VITALS: BP 158/94; PULSE 92; RESP 18; TEMP 98.4; O2SAT 97
[2023-12-21 05:18] VITALS: BP 149/95; PULSE 87; RESP 18; TEMP 98; O2SAT 98
[2023-12-21 08:00] VITALS: BP 155/92; PULSE 83; RESP 17; TEMP 98.1; O2SAT 97
[2023-12-21] MEDS ORDERED: PANT40T PO (08:36)
[2023-12-21] MEDS ORDERED: SUCR1TAB PO (08:36)
[2023-12-21 09:00] VITALS: BP 155/92; PULSE 83; RESP 17; TEMP 98.1; O2SAT 98
[2023-12-21 10:18] VITALS: TEMP 36.7
[2023-12-25] MEDS ORDERED: TRAM-626 PO (18:22)
[2023-12-29] MEDS ORDERED: BACDST PO (11:19)
== END 2023-12-21 11:16 | disposition home or self-care (01) | DRG 282 ==
LOC: ER 12:01 → CENTRAL 18:46 → OVERFLOW 18:46 → CENTRAL 21:37
PROVIDERS: ADMIT Family Medicine; ATTEND Family Medicine
DX: K85.90 Acute pancreatitis without necrosis or infection, unspecified (principal); N17.0 Acute kidney failure with tubular necrosis; E11.00 Type 2 diabetes mellitus with hyperosmolarity without nonketotic hyperglycemic-hyperosmolar coma (NKHHC); E86.0 Dehydration; G89.29 Other chronic pain; E78.00 Pure hypercholesterolemia, unspecified; K21.9 Gastro-esophageal reflux disease without esophagitis; I10 Essential (primary) hypertension; T38.3X6A Underdosing of insulin and oral hypoglycemic [antidiabetic] drugs, initial encounter; Z91.148 Patient's other noncompliance with medication regimen for other reason; Z79.4 Long term (current) use of insulin; Z80.1 Family history of malignant neoplasm of trachea, bronchus and lung; Z87.11 Personal history of peptic ulcer disease; Z91.138 Patient's unintentional underdosing of medication regimen for other reason; Y92.89 Other specified places as the place of occurrence of the external cause
CPT/HCPCS: 36415; 71046; 74176; 80053; 81001; 82010; 82962; 83036; 83690; 83735; 84484; 85025; 87081; 93005; 96374; 96375; C9113; G0378; J1815; J2405

== ENCOUNTER 2024-01-12 15:52 | Emergency (ER) | payer MEDICAID ==
[~2024-01-12] VITALS: Ht 172.7 cm; Wt 79.8 kg
[~2024-01-12 15:52] MED LIST changes: +BACDST PO; +CIPR-173 PO; -FAMO-12 PO; +INSLANTI SC; -INSUINJ37 SC; +METH-1181 PO; +METR-344 PO; +PANT40T PO; +SUCR1TAB PO; +TRAM-626 PO; +ZOFR4T PO
[2024-01-12 16:32] VITALS: BP 132/92; PULSE 106; RESP 18; O2SAT 99
[2024-01-12] MEDS ORDERED: ONDANSETRON ODT 4 MG TAB PO ONE (17:15)
== END 2024-01-12 19:30 | disposition left against medical advice (07) ==
LOC: ER 15:52 → EDBD 15:52 → ER 19:30
DX: R10.9 Unspecified abdominal pain (principal); Z53.21 Procedure and treatment not carried out due to patient leaving prior to being seen by health care provider

== ENCOUNTER 2024-01-18 23:08 | Inpatient (IN) | payer MEDICAID ==
[~2024-01-18] VITALS: Ht 172.7 cm; Wt 74.4 kg
[2024-01-18] MEDS: SODIUM CHLORIDE 0.9% 1,000 ML IV ONE (23:58)
[2024-01-18] MEDS: PANTOPRAZOLE 40 MG/10 ML VIAL INJ IV ONE (23:58)
[2024-01-18] MEDS: ONDANSETRON HCL 4 MG/2 ML VIAL IV ONE (23:59)
[2024-01-19 00:09] LABS: Eosinophils # (auto) 0 10 ^3/uL (0-0.8); Hemoglobin 16.4 g/dL (13.5-17.5); Lymphocytes # (auto) 1.2 10 ^3/uL (0.4-5.4); Monocytes # (auto) 0.7 10 ^3/uL (0-1.3); Nucleated Red Blood Cells % 0.1 %
[2024-01-19 00:10] LABS: Basophils # (auto) 0 10 ^3/uL (0-0.2); Basophils % (auto) 0.2 % (0.0-2.0); Hematocrit 48.7 % (41.0-53.0); Lymphocytes % (auto) 8.5 % (10.0-50.0); Mean Corpuscular Hgb Conc. 33.7 g/dL (32.0-36.0); Mean Corpuscular Volume 86.2 fL (80.0-100.0); Neutrophils # (auto) 12.4 10 ^3/uL (1.6-8.6); Neutrophils % (auto) 86.3 % (37.0-80.0); Red Blood Cells 5.65 10^6/uL (4.5-5.90); Red Cell Distribution Width 13.7 % (11.8-14.3); White Blood Cell 14.4 10^3/uL (4.4-10.8)
[2024-01-19 00:14] LABS: Alanine Aminotransferase 28 U/L (7-40); Albumin 5.2 g/dL (3.2-4.8); Alkaline Phosphatase 105 U/L (46-116); Amylase 114 U/L (30-118); Anion Gap 12 (5-15); Aspartate Aminotransferase 28 U/L (13-40); BUN/Creatinine Ratio 4.6 (10.0-20.0); Blood Urea Nitrogen 10 mg/dL (9-23); Calcium 11.4 mg/dL (8.7-10.4); Carbon Dioxide 24 mmol/L (20-30); Chloride 99 mmol/L (98-107); Glucose 184 mg/dL (74-106); Lipase 45 U/L (12-53); Potassium 3.9 mmol/L (3.5-5.1); Sodium 135 mmol/L (136-145)
[2024-01-19 00:15] LABS: Bilirubin, Total 0.8 mg/dL (0.2-1.0); Total Protein 8.8 g/dL (5.7-8.2)
[2024-01-19] MEDS: MORPHINE SULFATE 4 MG/ML SYR/VIAL IV ONE (01:30)
[2024-01-19 02:25] LABS: Lactic Acid w/Reflex 2.9 mmol/L (0.4-2.0)
[2024-01-19] MEDS ORDERED: TEMAZEPAM 15 MG CAP PO PRN (06:15)
[2024-01-19] MEDS ORDERED: ACETAMINOPHEN 325 MG TAB PO PRN (06:15)
[2024-01-19] MEDS: SODIUM CHLORIDE 0.9% 1,000 ML IV ONE (06:30)
[2024-01-19] MEDS: SUCRALFATE 1 GM TAB PO SCH (07:00)
[2024-01-19] MEDS: MORPHINE SULFATE INJ 2 MG/ml SYRG IV PRN (08:12)
[2024-01-19] MEDS: PANTOPRAZOLE 40 MG TAB PO SCH (10:00)
[2024-01-19] MEDS: HYDROcodone-ACET 5/325MG TAB PO PRN (11:55)
[2024-01-19] MEDS: ONDANSETRON HCL 4 MG/2 ML VIAL IV PRN (11:57)
[2024-01-19] MEDS: cefTRIAXone 1GM/50ML D5W 50 ML IV SCH (11:57)
[2024-01-19] MEDS: ACCU-CHEK COMFORT CURVE STRIP VI SCH (12:12)
[2024-01-19] MEDS: InsuLIN REG 1unit/0.01ml Soln (100units/ml) SC SCH (12:12)
[2024-01-19 15:30] VITALS: PULSE 71; RESP 19; O2SAT 98
[2024-01-19] MEDS: SODIUM CHLORIDE 0.9% 1,000 ML IV SCH (16:33)
[2024-01-19] MEDS: DEXTROSE (50%) 50ML SYRG IV PRN (17:55)
[2024-01-19 19:34] VITALS: BP 123/82; PULSE 77; RESP 18; TEMP 98.1
[2024-01-19 19:35] VITALS: RESP 18
[2024-01-19 20:00] VITALS: BP 123/82; PULSE 77; RESP 18; TEMP 98.1; O2SAT 99
[2024-01-19 20:41] LABS: Urine Bacteria MANY /hpf (None Seen); Urine Blood TRACE /uL (Negative); Urine Clarity Ex.Turbid (Clear); Urine Color Yellow (Yellow); Urine Mucus FEW (None Seen); Urine Protein, UAD 2+ (Negative); Urine Specific Gravity 1.025 (1.001-1.035); Urine Urobilinogen Normal (Negative); Urine WBC 5 /hpf (0 - 3); Urine pH 5.5 (5.0-9.0)
[2024-01-19] MEDS: metroNIDAZOLE 500MG/100ML 100 ML IV SCH (21:51)
[2024-01-20] VITALS (8 sets, daily range): BP systolic 109–150; BP diastolic 66–98; PULSE 72–86; RESP 14–20; TEMP 98.1–98.5; O2SAT 98–100
[2024-01-20 06:07] LABS: Basophils # (auto) 0 10 ^3/uL (0-0.2); Basophils % (auto) 0.5 % (0.0-2.0); Eosinophils # (auto) 0.1 10 ^3/uL (0-0.8); Eosinophils % (auto) 1.3 % (0.0-7.0); Hematocrit 41.8 % (41.0-53.0); Hemoglobin 13.8 g/dL (13.5-17.5); Lymphocytes # (auto) 1.6 10 ^3/uL (0.4-5.4); Lymphocytes % (auto) 23.2 % (10.0-50.0); Mean Corpuscular Volume 87.7 fL (80.0-100.0); Monocytes # (auto) 0.5 10 ^3/uL (0-1.3); Monocytes % (auto) 7.3 % (0.0-12.0); Neutrophils # (auto) 4.8 10 ^3/uL (1.6-8.6); Neutrophils % (auto) 67.7 % (37.0-80.0); Nucleated Red Blood Cells % 0.1 %; Red Blood Cells 4.76 10^6/uL (4.5-5.90); Red Cell Distribution Width 13.8 % (11.8-14.3); White Blood Cell 7.1 10^3/uL (4.4-10.8)
[2024-01-20 06:24] LABS: Alanine Aminotransferase 18 U/L (7-40); Albumin 3.9 g/dL (3.2-4.8); Alkaline Phosphatase 78 U/L (46-116); Anion Gap 5 (5-15); Aspartate Aminotransferase 22 U/L (13-40); BUN/Creatinine Ratio 12.7 (10.0-20.0); Bilirubin, Total 0.7 mg/dL (0.2-1.0); Blood Urea Nitrogen 13 mg/dL (9-23); Carbon Dioxide 29 mmol/L (20-30); Chloride 103 mmol/L (98-107); Glucose 128 mg/dL (74-106); Potassium 4.1 mmol/L (3.5-5.1); Sodium 137 mmol/L (136-145); Total Protein 6.5 g/dL (5.7-8.2)
[2024-01-20 06:53] LABS: Erythrocyte Sedimentation Rate 5 mm/hr (0-20)
[2024-01-20] MEDS: SODIUM CHLORIDE 0.9% 1,000 ML IV SCH (14:30)
[2024-01-20] MEDS: OXYCODONE W/ ACETAMINOPHEN 5/325MG TABLET PO PRN (17:45)
[2024-01-21 01:00] VITALS: BP 142/74; PULSE 94; RESP 16; TEMP 98.2; O2SAT 93
[2024-01-21 05:00] VITALS: BP 145/95; PULSE 82; RESP 14; TEMP 98.4; O2SAT 100
[2024-01-21 06:21] LABS: Basophils # (auto) 0 10 ^3/uL (0-0.2); Basophils % (auto) 0.7 % (0.0-2.0); Eosinophils # (auto) 0.1 10 ^3/uL (0-0.8); Eosinophils % (auto) 1.4 % (0.0-7.0); Hematocrit 41.4 % (41.0-53.0); Hemoglobin 13.8 g/dL (13.5-17.5); Lymphocytes # (auto) 1.6 10 ^3/uL (0.4-5.4); Lymphocytes % (auto) 26.9 % (10.0-50.0); Mean Corpuscular Hemoglobin 28.9 pg (28.0-32.0); Mean Corpuscular Hgb Conc. 33.3 g/dL (32.0-36.0); Mean Corpuscular Volume 86.8 fL (80.0-100.0); Monocytes # (auto) 0.5 10 ^3/uL (0-1.3); Monocytes % (auto) 8.8 % (0.0-12.0); Neutrophils # (auto) 3.7 10 ^3/uL (1.6-8.6); Neutrophils % (auto) 62.2 % (37.0-80.0); Nucleated Red Blood Cells % 0.2 %; Red Blood Cells 4.76 10^6/uL (4.5-5.90); Red Cell Distribution Width 13.7 % (11.8-14.3)
[2024-01-21 06:36] LABS: Anion Gap 8 (5-15); Carbon Dioxide 27 mmol/L (20-30); Chloride 104 mmol/L (98-107); Potassium 3.7 mmol/L (3.5-5.1); Sodium 139 mmol/L (136-145)
[2024-01-21 06:37] LABS: Calcium 9.2 mg/dL (8.7-10.4)
[2024-01-21 06:42] LABS: BUN/Creatinine Ratio 8.3 (10.0-20.0); Blood Urea Nitrogen 7 mg/dL (9-23); Glucose 118 mg/dL (74-106)
[2024-01-21 08:00] VITALS: PULSE 85; RESP 18; O2SAT 98
[2024-01-21 09:00] VITALS: BP 153/93; PULSE 80; RESP 17; TEMP 98.8; O2SAT 100
[2024-01-21] MEDS ORDERED: SUCR1TAB31 OR (09:40)
[2024-01-21] MEDS ORDERED: PERCOT PO (09:40)
[2024-01-21] MEDS ORDERED: PANT40TA2 PO (09:40)
== END 2024-01-21 11:20 | disposition left against medical advice (07) | DRG 241 ==
LOC: EDBD 23:08 → ER 23:08 → OVERFLOW 01-19 06:15 → WEST WING 01-19 18:41
PROVIDERS: ADMIT Nurse Practitioner; ATTEND Nurse Practitioner Acute Care
DX: K27.9 Peptic ulcer, site unspecified, unspecified as acute or chronic, without hemorrhage or perforation (principal); N17.0 Acute kidney failure with tubular necrosis; E11.65 Type 2 diabetes mellitus with hyperglycemia; E78.5 Hyperlipidemia, unspecified; I10 Essential (primary) hypertension; F12.90 Cannabis use, unspecified, uncomplicated; Z53.29 Procedure and treatment not carried out because of patient's decision for other reasons; K57.30 Diverticulosis of large intestine without perforation or abscess without bleeding; K21.9 Gastro-esophageal reflux disease without esophagitis; R65.10 Systemic inflammatory response syndrome (SIRS) of non-infectious origin without acute organ dysfunction
CPT/HCPCS: 36415; 74176; 80048; 80053; 81001; 82150; 82962; 83036; 83605; 83690; 84484; 85025; 85652; 87040; 87081; 93005; 96361; 96374; 96375; C9113; G0378; J1815; J2405; J3490

== ENCOUNTER 2024-01-31 11:13 | Inpatient (IN) | payer MEDICAID ==
[~2024-01-31] VITALS: Ht 172.7 cm; Wt 74.1 kg
[~2024-01-31 11:13] MED LIST changes: +PERCOT PO
[2024-01-31] MEDS: INSULIN LANTUS (GLARGINE) 1 /0.01ml (100units/ml) SC ONE (11:30)
[2024-01-31] MEDS: SODIUM CHLORIDE 0.9% 1,000 ML IV SCH ×4 (11:30→19:00)
[2024-01-31] MEDS ORDERED: DEXTROSE (50%) 50ML SYRG IV PRN ×2 (11:30→15:15)
[2024-01-31] MEDS: INSULIN DRIP 100 UNIT/100ML 100 ML IV SCH ×3 (11:30→21:40)
[2024-01-31] MEDS: ACCU-CHEK COMFORT CURVE STRIP VI SCH ×4 (12:14→22:30)
[2024-01-31 12:48] LABS: Basophils # (auto) 0 10 ^3/uL (0-0.2); Basophils % (auto) 0.2 % (0.0-2.0); Eosinophils # (auto) 0 10 ^3/uL (0-0.8); Hematocrit 43.4 % (41.0-53.0); Hemoglobin 14.1 g/dL (13.5-17.5); Lymphocytes # (auto) 0.7 10 ^3/uL (0.4-5.4); Lymphocytes % (auto) 4.4 % (10.0-50.0); Mean Corpuscular Hgb Conc. 32.5 g/dL (32.0-36.0); Mean Corpuscular Volume 89.3 fL (80.0-100.0); Monocytes # (auto) 0.7 10 ^3/uL (0-1.3); Monocytes % (auto) 4.8 % (0.0-12.0); Neutrophils % (auto) 90.6 % (37.0-80.0); Red Blood Cells 4.86 10^6/uL (4.5-5.90); White Blood Cell 15.5 10^3/uL (4.4-10.8)
[2024-01-31] MEDS: SODIUM CHLORIDE 0.9% 1,000 ML IV ONE (12:56)
[2024-01-31 13:04] LABS: Chloride 101 mmol/L (98-107); Potassium 4.4 mmol/L (3.5-5.1); Sodium 135 mmol/L (136-145)
[2024-01-31 13:05] LABS: Anion Gap 11 (5-15); Carbon Dioxide 23 mmol/L (20-30)
[2024-01-31 13:06] LABS: Calcium 10.3 mg/dL (8.5-10.1)
[2024-01-31 13:11] LABS: BUN/Creatinine Ratio 7.8 (10.0-20.0); Blood Urea Nitrogen 12 mg/dL (9-23); Magnesium 1.9 mg/dL (1.6-2.6)
[2024-01-31 13:13] LABS: Phosphorus 3.9 mg/dL (2.4-5.1)
[2024-01-31 13:24] LABS: Glucose 551 mg/dL (74-106)
[2024-01-31 14:28] LABS: Urine Bacteria None Seen /hpf (None Seen)
[2024-01-31 14:53] LABS: Urine Blood Negative /uL (Negative); Urine Clarity Clear (Clear); Urine Color Light-Yellow (Yellow); Urine Protein, UAD Negative (Negative); Urine Specific Gravity 1.035 (1.001-1.035); Urine Urobilinogen Normal (Negative); Urine WBC <1 /hpf (0 - 3)
[2024-01-31] MEDS ORDERED: DOCUSATE SOD 100 MG CAP PO PRN (15:15)
[2024-01-31 15:28] LABS: Magnesium 1.9 mg/dL (1.6-2.6)
[2024-01-31 15:29] LABS: Phosphorus 3.7 mg/dL (2.4-5.1)
[2024-01-31] MEDS: ONDANSETRON HCL 4 MG/2 ML VIAL IV ONE (16:02)
[2024-01-31] MEDS: MORPHINE SULFATE 4 MG/ML SYR/VIAL IV ONE (16:03)
[2024-01-31 18:14] LABS: Anion Gap 11 (5-15); Calcium 10.4 mg/dL (8.5-10.1); Carbon Dioxide 24 mmol/L (20-30); Chloride 102 mmol/L (98-107); Potassium 4.6 mmol/L (3.5-5.1); Sodium 137 mmol/L (136-145)
[2024-01-31 18:20] LABS: BUN/Creatinine Ratio 10.8 (10.0-20.0); Blood Urea Nitrogen 16 mg/dL (9-23)
[2024-01-31 18:49] LABS: Glucose 481 mg/dL (74-106); Lactic Acid w/Reflex 4.7 mmol/L (0.4-2.0)
[2024-01-31] MEDS: MORPHINE SULFATE INJ 2 MG/ml SYRG IV PRN (19:56)
[2024-01-31] MEDS: ONDANSETRON HCL 4 MG/2 ML VIAL IV PRN (19:56)
[2024-01-31] MEDS: PANTOPRAZOLE 40 MG/10 ML VIAL INJ IV ONE (21:37)
[2024-01-31] MEDS: PIPERACILLIN-TAZOB 3.375GM 100 ML IV ONE (21:38)
[2024-01-31] MEDS: PANTOPRAZOLE 40 MG/10 ML VIAL INJ IV SCH (22:00)
[2024-01-31 23:22] LABS: Hematocrit 38.3 % (41.0-53.0); Hemoglobin 13.1 g/dL (13.5-17.5)
[2024-01-31 23:26] LABS: Chloride 103 mmol/L (98-107); Potassium 3.9 mmol/L (3.5-5.1); Sodium 136 mmol/L (136-145)
[2024-01-31 23:27] LABS: Anion Gap 7 (5-15); Carbon Dioxide 26 mmol/L (20-30)
[2024-01-31 23:28] LABS: Calcium 9.6 mg/dL (8.7-10.4)
[2024-01-31 23:32] LABS: BUN/Creatinine Ratio 12.6 (10.0-20.0); Blood Urea Nitrogen 14 mg/dL (9-23)
[2024-01-31 23:36] LABS: Glucose 284 mg/dL (74-106)
[2024-02-01] VITALS (12 sets, daily range): BP systolic 103–153; BP diastolic 45–88; PULSE 76–95; RESP 12–22; TEMP 97.6–99.9; O2SAT 0–99
[2024-02-01] MEDS ORDERED: DEXTROSE (50%) 50ML SYRG IV PRN (02:45)
[2024-02-01] MEDS: ACCU-CHEK COMFORT CURVE STRIP VI SCH (04:03)
[2024-02-01] MEDS: InsuLIN REG 1unit/0.01ml Soln (100units/ml) SC SCH (04:24)
[2024-02-01 05:55] LABS: Basophils # (auto) 0.1 10 ^3/uL (0-0.2); Basophils % (auto) 0.4 % (0.0-2.0); Eosinophils # (auto) 0 10 ^3/uL (0-0.8); Eosinophils % (auto) 0.1 % (0.0-7.0); Hematocrit 39.7 % (41.0-53.0); Hemoglobin 13.1 g/dL (13.5-17.5); Lymphocytes # (auto) 1.5 10 ^3/uL (0.4-5.4); Lymphocytes % (auto) 11.7 % (10.0-50.0); Mean Corpuscular Hemoglobin 29.2 pg (28.0-32.0); Mean Corpuscular Volume 88.3 fL (80.0-100.0); Monocytes # (auto) 0.9 10 ^3/uL (0-1.3); Monocytes % (auto) 7.2 % (0.0-12.0); Neutrophils # (auto) 10.5 10 ^3/uL (1.6-8.6); Neutrophils % (auto) 80.6 % (37.0-80.0); Nucleated Red Blood Cells % 0.1 %; Red Blood Cells 4.49 10^6/uL (4.5-5.90); Red Cell Distribution Width 13.5 % (11.8-14.3)
[2024-02-01 05:58] LABS: Alanine Aminotransferase 22 U/L (7-40); Albumin 4.3 g/dL (3.2-4.8); Alkaline Phosphatase 96 U/L (46-116); Anion Gap 7 (5-15); Aspartate Aminotransferase 13 U/L (13-40); Bilirubin, Total 0.9 mg/dL (0.2-1.0); Blood Urea Nitrogen 11 mg/dL (9-23); Calcium 9.4 mg/dL (8.7-10.4); Carbon Dioxide 28 mmol/L (20-30); Chloride 104 mmol/L (98-107); Glucose 231 mg/dL (74-106); Potassium 4.3 mmol/L (3.5-5.1); Sodium 139 mmol/L (136-145); Total Protein 7.3 g/dL (5.7-8.2)
[2024-02-01] MEDS ORDERED: INSULIN LANTUS (GLARGINE) 1 /0.01ml (100units/ml) SC SCH (10:00)
[2024-02-01 10:14] LABS: Hemoglobin 13.7 g/dL (13.5-17.5)
[2024-02-01] MEDS: INSULIN LANTUS (GLARGINE) 1 /0.01ml (100units/ml) SC SCH (11:12)
[2024-02-01] MEDS: SODIUM CHLORIDE 0.9% 1,000 ML IV SCH (11:59)
[2024-02-01 12:25] LABS: Blood Alcohol < 3.0 mg/dL (<10)
[2024-02-01 12:44] LABS: Lipase 20 U/L (12-53)
[2024-02-01 18:14] LABS: Amphetamine Screen, Urine Neg (NEGATIVE); Barbiturate Scree,Urine Neg (NEGATIVE); Benzodiazephine Screen, Urine Neg (NEGATIVE); Cocaine Screen, Urine Neg (NEGATIVE); Opiate Scree,Urine Pos (NEGATIVE)
[2024-02-01 18:15] LABS: Cannabinoid Screen, Urine Pos (NEGATIVE); Phencyclidine Screen, Urine Neg (NEGATIVE)
[2024-02-01 21:59] LABS: Hematocrit 40.7 % (41.0-53.0); Hemoglobin 13.3 g/dL (13.5-17.5)
[2024-02-02 01:00] VITALS: BP 113/53; PULSE 81; RESP 20; TEMP 98.8; O2SAT 95
[2024-02-02 05:00] VITALS: BP_SYST 155; BP_SYST 173; BP_DIAS 76; BP_DIAS 80; PULSE 72; RESP 20; TEMP 98.6; O2SAT 95
[2024-02-02 07:03] LABS: INR 1.03 (0.9-1.15); Prothrombin Time 10.9 sec (9.3-11.8)
[2024-02-02 07:09] LABS: Alanine Aminotransferase 31 U/L (7-40); Alkaline Phosphatase 94 U/L (46-116); Anion Gap 7 (5-15); Aspartate Aminotransferase 24 U/L (13-40); BUN/Creatinine Ratio 12.2 (10.0-20.0); Blood Urea Nitrogen 11 mg/dL (9-23); Calcium 9.6 mg/dL (8.5-10.1); Carbon Dioxide 29 mmol/L (20-30); Chloride 100 mmol/L (98-107); Magnesium 1.7 mg/dL (1.6-2.6); Potassium 3.5 mmol/L (3.5-5.1); Sodium 136 mmol/L (136-145)
[2024-02-02 07:10] LABS: Albumin 4.5 g/dL (3.2-4.8)
[2024-02-02 07:11] LABS: Bilirubin, Total 0.9 mg/dL (0.2-1.0); Total Protein 7.3 g/dL (5.7-8.2)
[2024-02-02 07:23] LABS: Glucose 126 mg/dL (74-106)
[2024-02-02 08:50] VITALS: BP 131/71; PULSE 73; RESP 18; TEMP 99.3; O2SAT 97
[2024-02-02] MEDS ORDERED: MIDAZOLAM HCL 2MG/2ML 2ml VIAL (1mg/ml) ONE (12:26)
[2024-02-02] MEDS ORDERED: fentaNYL CITRATE 100 MCG/2 ML VL ONE (12:26)
[2024-02-02 12:42] VITALS: O2SAT 100
[2024-02-02] MEDS ORDERED: PROPOFOL 10 MG/ML 20 ML IV ONE (12:42)
[2024-02-02] MEDS ORDERED: ONDANSETRON HCL 4 MG/2 ML VIAL IV ONE (13:00)
[2024-02-02] MEDS: SUCRALFATE 1 GM/10 ML ORAL SUSP PO SCH (16:28)
[2024-02-02 17:00] VITALS: BP 164/85; PULSE 78; RESP 20; TEMP 97.5; O2SAT 99
[2024-02-02] MEDS: MORPHINE SULFATE 4 MG/ML SYR/VIAL IV PRN (20:34)
[2024-02-02 20:57] VITALS: BP 138/70; PULSE 80; RESP 18; TEMP 97.8; O2SAT 94
[2024-02-02] MEDS: PANTOPRAZOLE 40 MG TAB PO SCH (21:04)
[2024-02-03 01:00] VITALS: BP 154/80; PULSE 88; RESP 18; TEMP 98; O2SAT 96
[2024-02-03] MEDS: MORPHINE SULFATE 4 MG/ML SYR/VIAL IV PRN (02:24)
[2024-02-03 05:00] VITALS: BP 159/89; PULSE 79; RESP 17; TEMP 96; O2SAT 98
[2024-02-03 05:59] LABS: Basophils # (auto) 0 10 ^3/uL (0-0.2); Basophils % (auto) 0.3 % (0.0-2.0); Eosinophils # (auto) 0 10 ^3/uL (0-0.8); Eosinophils % (auto) 0.1 % (0.0-7.0); Hematocrit 38.3 % (41.0-53.0); Hemoglobin 12.8 g/dL (13.5-17.5); Lymphocytes # (auto) 1.8 10 ^3/uL (0.4-5.4); Lymphocytes % (auto) 18.4 % (10.0-50.0); Mean Corpuscular Hemoglobin 29.2 pg (28.0-32.0); Mean Corpuscular Hgb Conc. 33.3 g/dL (32.0-36.0); Mean Corpuscular Volume 87.6 fL (80.0-100.0); Monocytes # (auto) 0.4 10 ^3/uL (0-1.3); Monocytes % (auto) 4.5 % (0.0-12.0); Neutrophils # (auto) 7.6 10 ^3/uL (1.6-8.6); Neutrophils % (auto) 76.7 % (37.0-80.0); Nucleated Red Blood Cells % 0.1 %; Red Blood Cells 4.37 10^6/uL (4.5-5.90); Red Cell Distribution Width 13.5 % (11.8-14.3); White Blood Cell 9.9 10^3/uL (4.4-10.8)
[2024-02-03 06:08] LABS: Chloride 97 mmol/L (98-107); Potassium 3.3 mmol/L (3.5-5.1)
[2024-02-03 06:09] LABS: Anion Gap 10 (5-15); Carbon Dioxide 24 mmol/L (20-30)
[2024-02-03 06:14] LABS: Blood Urea Nitrogen 13 mg/dL (9-23); Glucose 199 mg/dL (74-106)
[2024-02-03 06:15] LABS: Magnesium 1.6 mg/dL (1.6-2.6)
[2024-02-03 06:27] LABS: Sodium 131 mmol/L (136-145)
[2024-02-03 07:37] VITALS: BP 144/77; PULSE 85; RESP 20; TEMP 98.2; O2SAT 99
[2024-02-03 08:00] VITALS: PULSE 85; RESP 20
[2024-02-03] MEDS ORDERED: SUCR1TAB31 OR (08:25)
[2024-02-03] MEDS ORDERED: PANT40T PO (08:25)
[2024-02-03] MEDS ORDERED: ONDA-155 PO (08:35)
[2024-02-03] MEDS: MAGNESIUM OXIDE 400 MG TAB PO ONE (08:49)
[2024-02-03] MEDS: POTASSIUM CHL 10 Meq TABLET PO ONE (08:49)
[2024-02-03 11:14] VITALS: TEMP 36.8
[2024-02-03 12:11] VITALS: BP 153/86; PULSE 67; RESP 18; TEMP 99.5; O2SAT 97
== END 2024-02-03 13:45 | disposition home or self-care (01) | DRG 241 ==
LOC: EDBD 11:13 → EDUNIT# 11:13 → ER 11:13 → TELE 16:19 → DOU IN ICU 02-01 02:29 → CENTRAL 02-01 13:18
PROVIDERS: ADMIT Internal Medicine; ATTEND Emergency Medicine
PROC: 0DB68ZX Excision of Stomach, Via Natural or Artificial Opening Endoscopic, Diagnostic (ICD-10-PCS; 2024-02-02)
PROC: 0DB98ZX Excision of Duodenum, Via Natural or Artificial Opening Endoscopic, Diagnostic (ICD-10-PCS; principal; 2024-02-02 12:24)
DX: K27.9 Peptic ulcer, site unspecified, unspecified as acute or chronic, without hemorrhage or perforation (principal); N17.0 Acute kidney failure with tubular necrosis; E87.1 Hypo-osmolality and hyponatremia; E78.5 Hyperlipidemia, unspecified; E10.65 Type 1 diabetes mellitus with hyperglycemia; D72.829 Elevated white blood cell count, unspecified; I10 Essential (primary) hypertension; K29.70 Gastritis, unspecified, without bleeding; K44.9 Diaphragmatic hernia without obstruction or gangrene; K21.9 Gastro-esophageal reflux disease without esophagitis; Z79.891 Long term (current) use of opiate analgesic; Z79.899 Other long term (current) drug therapy; Z79.4 Long term (current) use of insulin; Z80.1 Family history of malignant neoplasm of trachea, bronchus and lung
CPT/HCPCS: 36415; 36600; 74176; 76705; 80048; 80053; 80307; 80320; 81001; 82010; 82805; 82962; 83605; 83690; 83735; 83930; 84100; 84443; 85014; 85018; 85025; 85610; 85730; 86850; 86900; 86901; 87081; 93005; 96361; 96372; 96374; 96375; C9113; G0378; J1815; J2250; J2405; J2543; J2704

== ENCOUNTER 2024-02-29 09:06 | Inpatient (IN) | payer MEDICAID ==
[~2024-02-29] VITALS: Ht 177.8 cm; Wt 75.5 kg
[~2024-02-29 09:06] MED LIST changes: +ONDA-155 PO
[2024-02-29 10:02] LABS: Basophils # (auto) 0.1 10 ^3/uL (0-0.2); Basophils % (auto) 0.6 % (0.0-2.0); Eosinophils # (auto) 0 10 ^3/uL (0-0.8); Hematocrit 43.9 % (41.0-53.0); Lymphocytes # (auto) 1.1 10 ^3/uL (0.4-5.4); Lymphocytes % (auto) 8.7 % (10.0-50.0); Mean Corpuscular Hemoglobin 29.2 pg (28.0-32.0); Mean Corpuscular Hgb Conc. 34.1 g/dL (32.0-36.0); Mean Corpuscular Volume 85.8 fL (80.0-100.0); Monocytes # (auto) 0.6 10 ^3/uL (0-1.3); Monocytes % (auto) 4.6 % (0.0-12.0); Neutrophils # (auto) 11.2 10 ^3/uL (1.6-8.6); Neutrophils % (auto) 86.1 % (37.0-80.0); Red Blood Cells 5.12 10^6/uL (4.5-5.90); Red Cell Distribution Width 13.5 % (11.8-14.3)
[2024-02-29 10:14] LABS: Chloride 92 mmol/L (98-107); Potassium 3.6 mmol/L (3.5-5.1); Sodium 128 mmol/L (136-145)
[2024-02-29 10:15] LABS: Anion Gap 10 (5-15); Carbon Dioxide 26 mmol/L (20-30)
[2024-02-29] MEDS: LIDOCAINE VISCOUS 2% 15ML UD PO ONE (10:17)
[2024-02-29] MEDS: MAALOX PLUS or MAALOX 30 ML PO ONE (10:17)
[2024-02-29] MEDS: DONNATAL 5ml ORAL Elix (BELLADONNA ALK-PHENOBARB) PO ONE (10:17)
[2024-02-29 10:20] LABS: BUN/Creatinine Ratio 16.8 (10.0-20.0); Blood Urea Nitrogen 44 mg/dL (9-23); Glucose 322 mg/dL (74-106)
[2024-02-29] MEDS: SODIUM CHLORIDE 0.9% 1,000 ML IV ONE ×3 (10:28→13:30)
[2024-02-29] MEDS ORDERED: DOCUSATE SOD 100 MG CAP PO PRN (13:30)
[2024-02-29] MEDS ORDERED: MORPHINE SULFATE INJ 2 MG/ml SYRG IV PRN (13:30)
[2024-02-29] MEDS: SODIUM CHLORIDE 0.9% 1,000 ML IV SCH (13:30)
[2024-02-29] MEDS ORDERED: NITROGLYCERIN 0.4 MG SL TAB SL PRN (13:30)
[2024-02-29] MEDS: ONDANSETRON HCL 4 MG/2 ML VIAL IV ONE (14:27)
[2024-02-29] MEDS: MORPHINE SULFATE 4 MG/ML SYR/VIAL IV ONE (14:28)
[2024-02-29] MEDS: ONDANSETRON HCL 4 MG/2 ML VIAL IV PRN (20:09)
[2024-02-29] MEDS: SUCRALFATE 1 GM TAB PO SCH (20:09)
[2024-02-29] MEDS: MORPHINE SULFATE INJ 2 MG/ml SYRG IV PRN (20:10)
[2024-02-29] MEDS: PANTOPRAZOLE 40 MG/10 ML VIAL INJ IV SCH (22:57)
[2024-02-29 23:00] VITALS: BP 156/93; PULSE 85; RESP 17; TEMP 98.5; O2SAT 98
[2024-03-01] VITALS (9 sets, daily range): BP systolic 118–154; BP diastolic 63–91; PULSE 72–85; RESP 16–19; TEMP 97.9–99.2; O2SAT 96–99
[2024-03-01 05:07] LABS: Urine Bacteria None Seen /hpf (None Seen)
[2024-03-01 05:17] LABS: Urine Blood Negative /uL (Negative); Urine Clarity Clear (Clear); Urine Color Light-Yellow (Yellow); Urine Protein, UAD TRACE (Negative); Urine Specific Gravity 1.023 (1.001-1.035); Urine Urobilinogen Normal (Negative); Urine WBC 1 /hpf (0 - 3); Urine pH 6.5 (5.0-9.0)
[2024-03-01 05:21] LABS: Sodium Urine 42 mmol/L (40-220)
[2024-03-01 05:27] LABS: Amphetamine Screen, Urine Neg (NEGATIVE)
[2024-03-01 05:28] LABS: Barbiturate Scree,Urine Neg (NEGATIVE); Benzodiazephine Screen, Urine Neg (NEGATIVE); Cannabinoid Screen, Urine Pos (NEGATIVE); Cocaine Screen, Urine Neg (NEGATIVE); Creatinine, Urine 120.89 mg/dL (30.0-125.0); Opiate Scree,Urine Pos (NEGATIVE); Phencyclidine Screen, Urine Neg (NEGATIVE)
[2024-03-01 07:43] LABS: Basophils # (auto) 0 10 ^3/uL (0-0.2); Basophils % (auto) 0.3 % (0.0-2.0); Eosinophils # (auto) 0 10 ^3/uL (0-0.8); Eosinophils % (auto) 0.1 % (0.0-7.0); Hematocrit 39.1 % (41.0-53.0); Hemoglobin 13.4 g/dL (13.5-17.5); Lymphocytes # (auto) 1.8 10 ^3/uL (0.4-5.4); Lymphocytes % (auto) 19.9 % (10.0-50.0); Mean Corpuscular Hemoglobin 29.9 pg (28.0-32.0); Mean Corpuscular Hgb Conc. 34.2 g/dL (32.0-36.0); Mean Corpuscular Volume 87.4 fL (80.0-100.0); Monocytes # (auto) 0.7 10 ^3/uL (0-1.3); Monocytes % (auto) 7.8 % (0.0-12.0); Neutrophils # (auto) 6.6 10 ^3/uL (1.6-8.6); Neutrophils % (auto) 71.9 % (37.0-80.0); Red Blood Cells 4.47 10^6/uL (4.5-5.90); Red Cell Distribution Width 13.2 % (11.8-14.3); White Blood Cell 9.1 10^3/uL (4.4-10.8)
[2024-03-01 08:02] LABS: Alanine Aminotransferase 34 U/L (7-40); Albumin 4.1 g/dL (3.2-4.8); Alkaline Phosphatase 80 U/L (46-116); Aspartate Aminotransferase 47 U/L (13-40); BUN/Creatinine Ratio 17.4 (10.0-20.0); Blood Urea Nitrogen 20 mg/dL (9-23); Calcium 8.9 mg/dL (8.5-10.1); Potassium 4.2 mmol/L (3.5-5.1)
[2024-03-01 08:03] LABS: Bilirubin, Total 0.9 mg/dL (0.2-1.0); Total Protein 6.7 g/dL (5.7-8.2)
[2024-03-01 08:09] LABS: Glucose 169 mg/dL (74-106)
[2024-03-01 08:22] LABS: Anion Gap 1 (5-15); Carbon Dioxide 33 mmol/L (20-30); Chloride 100 mmol/L (98-107); Sodium 134 mmol/L (136-145)
[2024-03-01] MEDS: SUCRALFATE 1 GM/10 ML ORAL SUSP GT SCH (14:59)
[2024-03-02 05:00] VITALS: BP 131/88; PULSE 71; RESP 19; TEMP 99.1; O2SAT 99
[2024-03-02 08:00] VITALS: PULSE 73; RESP 16; O2SAT 96
[2024-03-02] MEDS ORDERED: PANT40T PO (08:14)
[2024-03-02] MEDS ORDERED: SUCR1TAB PO (08:14)
[2024-03-02 09:00] VITALS: BP 141/89; PULSE 73; RESP 16; TEMP 98.5; O2SAT 96
[2024-03-02 13:23] VITALS: BP 139/79; PULSE 77; RESP 21; TEMP 98.3; O2SAT 97
== END 2024-03-02 15:54 | disposition home or self-care (01) | DRG 241 ==
LOC: EDBD 09:06 → ER 09:06 → OVERFLOW 13:33 → CENTRAL 22:38
PROVIDERS: ADMIT Nurse Practitioner Family; ATTEND Family Medicine
DX: K29.00 Acute gastritis without bleeding (principal); N17.0 Acute kidney failure with tubular necrosis; E87.1 Hypo-osmolality and hyponatremia; K76.0 Fatty (change of) liver, not elsewhere classified; D72.829 Elevated white blood cell count, unspecified; E86.0 Dehydration; E78.5 Hyperlipidemia, unspecified; I10 Essential (primary) hypertension; K21.9 Gastro-esophageal reflux disease without esophagitis; F12.10 Cannabis abuse, uncomplicated; Z87.11 Personal history of peptic ulcer disease; Z80.1 Family history of malignant neoplasm of trachea, bronchus and lung; Z79.899 Other long term (current) drug therapy
CPT/HCPCS: 36415; 80048; 80053; 80307; 81001; 82010; 82570; 82962; 83036; 83690; 83930; 83935; 84300; 85025; 87081; 96361; 96374; 96375; C9113; G0378; J2405

== ENCOUNTER 2024-04-13 17:12 | Emergency (ER) | payer MEDICAID ==
[~2024-04-13] VITALS: Ht 172.7 cm; Wt 79.5 kg
[~2024-04-13 17:12] MED LIST changes: -BACDST PO; -CIPR-173 PO; -CYCL-839 PO; -METH-1181 PO; -METR-344 PO; -ONDA-155 PO; -PANT40TA2 PO; -PERCOT PO; -SUCR1TAB31 OR; -TRAM-626 PO
[2024-04-13 17:14] VITALS: BP 148/96; PULSE 98; RESP 12; O2SAT 97
[2024-04-13 18:27] LABS: Basophils # (auto) 0 10 ^3/uL (0-0.2); Basophils % (auto) 0.3 % (0.0-2.0); Eosinophils # (auto) 0 10 ^3/uL (0-0.8); Hematocrit 48.9 % (41.0-53.0); Hemoglobin 16.7 g/dL (13.5-17.5); Lymphocytes # (auto) 1.1 10 ^3/uL (0.4-5.4); Lymphocytes % (auto) 9.5 % (10.0-50.0); Mean Corpuscular Hgb Conc. 34.2 g/dL (32.0-36.0); Mean Corpuscular Volume 84.9 fL (80.0-100.0); Monocytes # (auto) 0.6 10 ^3/uL (0-1.3); Monocytes % (auto) 4.6 % (0.0-12.0); Neutrophils # (auto) 10.3 10 ^3/uL (1.6-8.6); Neutrophils % (auto) 85.6 % (37.0-80.0); Nucleated Red Blood Cells % 0.1 %; Red Blood Cells 5.75 10^6/uL (4.5-5.90); Red Cell Distribution Width 13.2 % (11.8-14.3)
[2024-04-13 18:41] LABS: Alanine Aminotransferase 44 U/L (7-40); Albumin 5.1 g/dL (3.2-4.8); Alkaline Phosphatase 130 U/L (46-116); Anion Gap 12 (5-15); Aspartate Aminotransferase 42 U/L (13-40); BUN/Creatinine Ratio 19.3 (10.0-20.0); Blood Urea Nitrogen 33 mg/dL (9-23); Calcium 10.5 mg/dL (8.7-10.4); Carbon Dioxide 29 mmol/L (20-30); Chloride 85 mmol/L (98-107); Lipase 32 U/L (12-53); Potassium 3.5 mmol/L (3.5-5.1); Sodium 126 mmol/L (136-145)
[2024-04-13 18:42] LABS: Bilirubin, Total 1.6 mg/dL (0.2-1.0); Total Protein 8.8 g/dL (5.7-8.2)
[2024-04-13 19:43] LABS: Glucose 493 mg/dL (74-106)
[2024-04-13 19:44] LABS: Lactic Acid w/Reflex 2.2 mmol/L (0.4-2.0)
== END 2024-04-13 20:03 | disposition left against medical advice (07) ==
LOC: ER 17:12 → EDBD 17:12 → EDUNIT# 17:12 → ER 20:03
DX: R10.84 Generalized abdominal pain (principal); Z53.21 Procedure and treatment not carried out due to patient leaving prior to being seen by health care provider
CPT/HCPCS: 36415; 80053; 83605; 83690; 84484; 85025

== ENCOUNTER 2024-04-14 04:58 | Inpatient (IN) | payer MEDICAID ==
[~2024-04-14] VITALS: Ht 172.7 cm; Wt 80.4 kg
[2024-04-14 07:37] VITALS: PULSE 95; RESP 18; O2SAT 96
[2024-04-14] MEDS: METOCLOPRAMIDE HCL 5MG/ml INJ 2ml VIAL IV ONE (07:54)
[2024-04-14] MEDS: HYDROmorphone HCL 2 MG/ML VL/or syr IV ONE (07:55)
[2024-04-14 07:56] LABS: Basophils # (auto) 0 10 ^3/uL (0-0.2); Basophils % (auto) 0.3 % (0.0-2.0); Eosinophils # (auto) 0 10 ^3/uL (0-0.8); Eosinophils % (auto) 0.1 % (0.0-7.0); Hematocrit 47.8 % (41.0-53.0); Hemoglobin 16.6 g/dL (13.5-17.5); Lymphocytes # (auto) 1.5 10 ^3/uL (0.4-5.4); Mean Corpuscular Hemoglobin 29.6 pg (28.0-32.0); Mean Corpuscular Hgb Conc. 34.8 g/dL (32.0-36.0); Mean Corpuscular Volume 85.1 fL (80.0-100.0); Monocytes # (auto) 0.9 10 ^3/uL (0-1.3); Monocytes % (auto) 7.4 % (0.0-12.0); Neutrophils # (auto) 10.2 10 ^3/uL (1.6-8.6); Neutrophils % (auto) 80.2 % (37.0-80.0); Nucleated Red Blood Cells % 0.2 %; Red Blood Cells 5.62 10^6/uL (4.5-5.90); White Blood Cell 12.7 10^3/uL (4.4-10.8)
[2024-04-14] MEDS: SODIUM CHLORIDE 0.9% 1,000 ML IVB ONE (07:56)
[2024-04-14 08:06] LABS: Chloride 85 mmol/L (98-107); Potassium 3.6 mmol/L (3.5-5.1)
[2024-04-14 08:07] LABS: Anion Gap 8 (5-15); Carbon Dioxide 28 mmol/L (20-30)
[2024-04-14 08:08] LABS: Calcium 9.9 mg/dL (8.7-10.4)
[2024-04-14 08:12] LABS: BUN/Creatinine Ratio 15.6 (10.0-20.0); Blood Urea Nitrogen 30 mg/dL (9-23)
[2024-04-14 08:13] LABS: Magnesium 2.6 mg/dL (1.6-2.6)
[2024-04-14 08:21] LABS: Sodium 121 mmol/L (136-145)
[2024-04-14 08:23] LABS: Glucose 574 mg/dL (74-106)
[2024-04-14 08:48] LABS: Lipase 32 U/L (12-53)
[2024-04-14] MEDS ORDERED: ACETAMINOPHEN 325 MG TAB PO PRN (11:30)
[2024-04-14] MEDS: InsuLIN REG 1unit/0.01ml Soln (100units/ml) IV ONE (11:37)
[2024-04-14] MEDS: INSULIN LISPRO (HUMAN) 100 UNITS/ML ML SC ONE (11:38)
[2024-04-14] MEDS: SODIUM CHLORIDE 0.9% 1,000 ML IV ONE (12:30)
[2024-04-14] MEDS: PANTOPRAZOLE 40 MG/10 ML VIAL INJ IV SCH (13:31)
[2024-04-14] MEDS: HYDROcodone-ACET 5/325MG TAB PO PRN (13:31)
[2024-04-14] MEDS: ONDANSETRON HCL 4 MG/2 ML VIAL IV PRN (13:32)
[2024-04-14] MEDS: SODIUM CHLOR 0.9% PF (SALINE LOCK) 10ML VIAL/SYR IV SCH (14:00)
[2024-04-14 17:00] VITALS: BP 154/77; PULSE 101; RESP 18; TEMP 98; O2SAT 95
[2024-04-14] MEDS ORDERED: DEXTROSE (50%) 50ML SYRG IV PRN (18:45)
[2024-04-14 20:00] VITALS: PULSE 84; RESP 18; O2SAT 97
[2024-04-14 21:00] VITALS: BP 130/82; PULSE 85; RESP 18; TEMP 98.8; O2SAT 96
[2024-04-14] MEDS: ACCU-CHEK COMFORT CURVE STRIP VI SCH (21:38)
[2024-04-15] VITALS (9 sets, daily range): BP systolic 112–135; BP diastolic 64–87; PULSE 72–88; RESP 16–20; TEMP 98–99.4; O2SAT 95–99
[2024-04-15] MEDS ORDERED: DEXTROSE (50%) 50ML SYRG IV PRN (09:45)
[2024-04-15] MEDS: InsuLIN REG 1unit/0.01ml Soln (100units/ml) SC SCH (11:48)
[2024-04-15] MEDS: ACCU-CHEK COMFORT CURVE STRIP VI SCH (11:49)
[2024-04-16] VITALS (9 sets, daily range): BP systolic 103–140; BP diastolic 69–87; PULSE 70–102; RESP 18–20; TEMP 98.4–99.1; O2SAT 91–100
[2024-04-16 05:31] LABS: Basophils # (auto) 0 10 ^3/uL (0-0.2); Basophils % (auto) 0.5 % (0.0-2.0); Eosinophils # (auto) 0.1 10 ^3/uL (0-0.8); Eosinophils % (auto) 1.5 % (0.0-7.0); Hematocrit 41.1 % (41.0-53.0); Hemoglobin 14.5 g/dL (13.5-17.5); Lymphocytes # (auto) 2.3 10 ^3/uL (0.4-5.4); Lymphocytes % (auto) 25.8 % (10.0-50.0); Mean Corpuscular Hemoglobin 29.6 pg (28.0-32.0); Mean Corpuscular Hgb Conc. 35.2 g/dL (32.0-36.0); Mean Corpuscular Volume 84.1 fL (80.0-100.0); Monocytes # (auto) 0.8 10 ^3/uL (0-1.3); Monocytes % (auto) 9.2 % (0.0-12.0); Neutrophils # (auto) 5.6 10 ^3/uL (1.6-8.6); Nucleated Red Blood Cells % 0.1 %; Red Blood Cells 4.89 10^6/uL (4.5-5.90); Red Cell Distribution Width 12.6 % (11.8-14.3); White Blood Cell 8.8 10^3/uL (4.4-10.8)
[2024-04-16 05:49] LABS: Alanine Aminotransferase 32 U/L (7-40); Alkaline Phosphatase 93 U/L (46-116); Anion Gap 9 (5-15); Aspartate Aminotransferase 24 U/L (13-40); BUN/Creatinine Ratio 10.1 (10.0-20.0); Bilirubin, Total 1.2 mg/dL (0.2-1.0); Blood Urea Nitrogen 12 mg/dL (9-23); Carbon Dioxide 32 mmol/L (20-30); Chloride 91 mmol/L (98-107); Potassium 3.1 mmol/L (3.5-5.1); Total Protein 6.8 g/dL (5.7-8.2)
[2024-04-16 05:52] LABS: INR 1.08 (0.9-1.15); Partial Thromboplastin Time 27.3 SEC (24.5-34.5); Prothrombin Time 11.4 sec (9.3-11.8)
[2024-04-16 06:04] LABS: Glucose 243 mg/dL (74-106); Sodium 132 mmol/L (136-145)
[2024-04-16 08:29] LABS: Urine Bacteria FEW /hpf (None Seen); Urine Blood Negative /uL (Negative); Urine Clarity Clear (Clear); Urine Color Light-Yellow (Yellow); Urine Protein, UAD Negative (Negative); Urine Specific Gravity 1.012 (1.001-1.035); Urine Urobilinogen Normal (Negative); Urine WBC 1 /hpf (0 - 3)
[2024-04-16 08:41] LABS: Amphetamine Screen, Urine Neg (NEGATIVE)
[2024-04-16 08:42] LABS: Barbiturate Scree,Urine Neg (NEGATIVE); Benzodiazephine Screen, Urine Neg (NEGATIVE); Cannabinoid Screen, Urine Pos (NEGATIVE); Cocaine Screen, Urine Neg (NEGATIVE); Opiate Scree,Urine Pos (NEGATIVE); Phencyclidine Screen, Urine Neg (NEGATIVE)
[2024-04-16] MEDS: DOCUSATE SOD 100 MG CAP PO PRN (09:57)
[2024-04-17] VITALS (7 sets, daily range): BP systolic 107–164; BP diastolic 63–101; PULSE 66–90; RESP 16–70; TEMP 97.8–98.2; O2SAT 94–100
[2024-04-17] MEDS: POTASSIUM CHL 20MEQ/100ML 100 ML IV ONE (06:41)
[2024-04-17] MEDS: POTASSIUM EFFERVESENT TAB 25 MEQ PO ONE (10:19)
[2024-04-17] MEDS: cloNIDine HCL 0.1 MG TAB PO PRN (10:20)
[2024-04-17 16:11] LABS: Bilirubin, Direct 0.2 mg/dL (<0.3); Bilirubin, Total 0.6 mg/dL (0.2-1.0); Total Protein 6.5 g/dL (5.7-8.2)
[2024-04-18 05:00] VITALS: BP 109/71; PULSE 76; RESP 16; TEMP 98.2; O2SAT 97
[2024-04-18 08:00] VITALS: BP 118/74; PULSE 71; RESP 16; TEMP 98.5; O2SAT 97; O2SAT 98
[2024-04-18] MEDS ORDERED: HYDR-4902 PO (09:19)
[2024-04-18] MEDS ORDERED: PANT40T PO (09:19)
[2024-04-18 12:00] VITALS: BP 123/88; PULSE 73; RESP 16; TEMP 98.5; O2SAT 98
[2024-04-18 16:33] VITALS: BP 121/79; PULSE 77; RESP 18; TEMP 97.7; O2SAT 99
== END 2024-04-18 18:15 | disposition home or self-care (01) | DRG 241 ==
LOC: EDBD 04:58 → ER 04:58 → OVERFLOW 11:27 → EAST 16:34
PROVIDERS: ADMIT Family Medicine; ATTEND Family Medicine
DX: K29.00 Acute gastritis without bleeding (principal); N17.0 Acute kidney failure with tubular necrosis; K76.0 Fatty (change of) liver, not elsewhere classified; E11.65 Type 2 diabetes mellitus with hyperglycemia; K57.30 Diverticulosis of large intestine without perforation or abscess without bleeding; K21.9 Gastro-esophageal reflux disease without esophagitis; K44.9 Diaphragmatic hernia without obstruction or gangrene; M54.50 Low back pain, unspecified; F12.10 Cannabis abuse, uncomplicated; N18.9 Chronic kidney disease, unspecified; I12.9 Hypertensive chronic kidney disease with stage 1 through stage 4 chronic kidney disease, or unspecified chronic kidney disease; Z79.899 Other long term (current) drug therapy; Z87.11 Personal history of peptic ulcer disease; Z80.1 Family history of malignant neoplasm of trachea, bronchus and lung; Z71.51 Drug abuse counseling and surveillance of drug abuser; Z79.4 Long term (current) use of insulin
CPT/HCPCS: 36415; 71046; 74176; 76700; 78226; 80048; 80053; 80076; 80307; 81001; 82962; 83036; 83605; 83690; 83735; 83930; 83935; 85025; 85610; 85730; 93005; 96361; 96372; 96374; 96375; G0378; J1815; J2405; J2470; J3480

== ENCOUNTER 2024-05-10 05:12 | Inpatient (IN) | payer MEDICAID ==
[~2024-05-10] VITALS: Ht 172.7 cm; Wt 78.8 kg
[~2024-05-10 05:12] MED LIST changes: +HYDR-4902 PO; +SUCR1SUS26 PO
[2024-05-10] MEDS: SODIUM CHLORIDE 0.9% 1,000 ML IV ONE (07:32)
[2024-05-10] MEDS: ONDANSETRON HCL 4 MG/2 ML VIAL IV ONE (07:41)
[2024-05-10] MEDS: MORPHINE SULFATE 4 MG/ML SYR/VIAL IV ONE (07:41)
[2024-05-10] MEDS: PANTOPRAZOLE 40 MG/10 ML VIAL INJ IV ONE (07:41)
[2024-05-10 08:00] LABS: Basophils # (auto) 0 10 ^3/uL (0-0.2); Basophils % (auto) 0.1 % (0.0-2.0); Eosinophils # (auto) 0 10 ^3/uL (0-0.8); Hematocrit 43.1 % (41.0-53.0); Hemoglobin 14.2 g/dL (13.5-17.5); Lymphocytes % (auto) 8.7 % (10.0-50.0); Mean Corpuscular Hemoglobin 28.7 pg (28.0-32.0); Mean Corpuscular Hgb Conc. 32.9 g/dL (32.0-36.0); Mean Corpuscular Volume 87.4 fL (80.0-100.0); Monocytes # (auto) 0.7 10 ^3/uL (0-1.3); Neutrophils # (auto) 10.2 10 ^3/uL (1.6-8.6); Neutrophils % (auto) 85.2 % (37.0-80.0); Platelet Count (auto) 414 10^3/uL (140-450); Red Blood Cells 4.94 10^6/uL (4.5-5.90); Red Cell Distribution Width 13.9 % (11.8-14.3); White Blood Cell 11.9 10^3/uL (4.4-10.8)
[2024-05-10 08:17] LABS: Alanine Aminotransferase 24 U/L (7-40); Albumin 4.7 g/dL (3.2-4.8); Alkaline Phosphatase 113 U/L (46-116); Anion Gap 11 (5-15); Aspartate Aminotransferase 16 U/L (13-40); BUN/Creatinine Ratio 9.4 (10.0-20.0); Bilirubin, Total 0.8 mg/dL (0.2-1.0); Blood Urea Nitrogen 12 mg/dL (9-23); Calcium 10.1 mg/dL (8.7-10.4); Carbon Dioxide 25 mmol/L (20-30); Chloride 100 mmol/L (98-107); Glucose 395 mg/dL (74-106); Potassium 3.6 mmol/L (3.5-5.1); Sodium 136 mmol/L (136-145); Total Protein 7.9 g/dL (5.7-8.2)
[2024-05-10 09:08] LABS: Lipase 27 U/L (12-53)
[2024-05-10 10:00] VITALS: RESP 17; O2SAT 95
[2024-05-10] MEDS ORDERED: DOCUSATE SOD 100 MG CAP PO PRN (10:45)
[2024-05-10] MEDS ORDERED: NITROGLYCERIN 0.4 MG SL TAB SL PRN (10:45)
[2024-05-10] MEDS: SODIUM CHLORIDE 0.9% 1,000 ML IV SCH (11:04)
[2024-05-10] MEDS: ONDANSETRON HCL 4 MG/2 ML VIAL IV PRN (11:21)
[2024-05-10] MEDS: MORPHINE SULFATE INJ 2 MG/ml SYRG IV PRN (11:22)
[2024-05-10 14:46] LABS: Urine Bacteria None Seen /hpf (None Seen)
[2024-05-10 15:03] LABS: Urine Blood Negative /uL (Negative); Urine Clarity Clear (Clear); Urine Color Light-Yellow (Yellow); Urine Hyaline Cast FEW /lpf (0 - 2); Urine Protein, UAD TRACE (Negative); Urine Specific Gravity 1.046 (1.001-1.035); Urine Urobilinogen Normal (Negative); Urine WBC 2 /hpf (0 - 3)
[2024-05-10 17:58] VITALS: BP 137/80; PULSE 87; RESP 20; TEMP 98.2; O2SAT 96
[2024-05-10 20:00] VITALS: PULSE 85; RESP 18
[2024-05-10 21:00] VITALS: BP 134/78; PULSE 86; RESP 18; TEMP 98.7; O2SAT 97
[2024-05-10] MEDS: PANTOPRAZOLE 40 MG/10 ML VIAL INJ IV SCH (21:03)
[2024-05-10] MEDS: SUCRALFATE 1 GM/10 ML ORAL SUSP PO SCH (21:04)
[2024-05-11] VITALS (7 sets, daily range): BP systolic 127–164; BP diastolic 71–90; PULSE 64–85; RESP 16–20; TEMP 98–98.4; O2SAT 94–99
[2024-05-11 07:07] LABS: Basophils # (auto) 0 10 ^3/uL (0-0.2); Basophils % (auto) 0.6 % (0.0-2.0); Eosinophils # (auto) 0.1 10 ^3/uL (0-0.8); Eosinophils % (auto) 0.9 % (0.0-7.0); Hematocrit 37.6 % (41.0-53.0); Hemoglobin 12.8 g/dL (13.5-17.5); Lymphocytes # (auto) 2.2 10 ^3/uL (0.4-5.4); Lymphocytes % (auto) 25.4 % (10.0-50.0); Mean Corpuscular Hemoglobin 29.8 pg (28.0-32.0); Mean Corpuscular Hgb Conc. 34.1 g/dL (32.0-36.0); Mean Corpuscular Volume 87.2 fL (80.0-100.0); Monocytes # (auto) 0.5 10 ^3/uL (0-1.3); Monocytes % (auto) 6.3 % (0.0-12.0); Neutrophils # (auto) 5.7 10 ^3/uL (1.6-8.6); Neutrophils % (auto) 66.8 % (37.0-80.0); Platelet Count (auto) 332 10^3/uL (140-450); Red Blood Cells 4.31 10^6/uL (4.5-5.90); Red Cell Distribution Width 13.7 % (11.8-14.3); White Blood Cell 8.5 10^3/uL (4.4-10.8)
[2024-05-11 07:14] LABS: Alanine Aminotransferase 25 U/L (7-40); Alkaline Phosphatase 83 U/L (46-116); Anion Gap 8 (5-15); BUN/Creatinine Ratio 11.8 (10.0-20.0); Blood Urea Nitrogen 10 mg/dL (9-23); Calcium 8.6 mg/dL (8.7-10.4); Carbon Dioxide 26 mmol/L (20-30); Chloride 104 mmol/L (98-107); Potassium 3.1 mmol/L (3.5-5.1); Sodium 138 mmol/L (136-145)
[2024-05-11 07:15] LABS: Albumin 3.7 g/dL (3.2-4.8); Aspartate Aminotransferase 23 U/L (13-40); Bilirubin, Total 0.9 mg/dL (0.2-1.0); Total Protein 6.4 g/dL (5.7-8.2)
[2024-05-11 07:17] LABS: Glucose 263 mg/dL (74-106)
[2024-05-11] MEDS ORDERED: DEXTROSE (50%) 50ML SYRG IV PRN (13:15)
[2024-05-11] MEDS: SOD CHL 0.9%/ KCL 40MEQ 1,000 ML IV ONE (15:21)
[2024-05-11] MEDS: HYDROcodone-ACET 5/325MG TAB PO PRN (15:21)
[2024-05-11] MEDS: InsuLIN REG 1unit/0.01ml Soln (100units/ml) SC SCH ×2 (17:32→21:47)
[2024-05-11] MEDS: SUCRALFATE 1 GM/10 ML ORAL SUSP PO SCH (17:34)
[2024-05-11] MEDS: PANTOPRAZOLE 40 MG TAB PO SCH (17:34)
[2024-05-11] MEDS: ACCU-CHEK COMFORT CURVE STRIP VI SCH (17:35)
[2024-05-12] VITALS (10 sets, daily range): BP systolic 133–164; BP diastolic 77–94; PULSE 77–93; RESP 15–19; TEMP 98.3–99.2; O2SAT 95–98
[2024-05-12] MEDS: MORPHINE SULFATE INJ 2 MG/ml SYRG IV PRN (04:22)
[2024-05-12 06:18] LABS: Anion Gap 8 (5-15); Carbon Dioxide 26 mmol/L (20-30); Chloride 101 mmol/L (98-107); Potassium 3.3 mmol/L (3.5-5.1); Sodium 135 mmol/L (136-145)
[2024-05-12 06:20] LABS: Calcium 8.6 mg/dL (8.7-10.4)
[2024-05-12 06:24] LABS: BUN/Creatinine Ratio 11.4 (10.0-20.0); Blood Urea Nitrogen 9 mg/dL (9-23)
[2024-05-12 06:25] LABS: Glucose 161 mg/dL (74-106)
[2024-05-12] MEDS: POTASSIUM EFFERVESENT TAB 25 MEQ PO ONE (08:52)
[2024-05-12] MEDS: FLUoxetine HCL 20 MG CAP PO SCH (08:52)
[2024-05-13] VITALS (7 sets, daily range): BP systolic 110–163; BP diastolic 64–95; PULSE 76–95; RESP 15–20; TEMP 97.9–98.9; O2SAT 95–100
[2024-05-13 13:14] LABS: Basophils # (auto) 0.1 10 ^3/uL (0-0.2); Basophils % (auto) 0.7 % (0.0-2.0); Eosinophils # (auto) 0 10 ^3/uL (0-0.8); Eosinophils % (auto) 0.3 % (0.0-7.0); Hematocrit 41.7 % (41.0-53.0); Hemoglobin 14.2 g/dL (13.5-17.5); Lymphocytes # (auto) 1.6 10 ^3/uL (0.4-5.4); Lymphocytes % (auto) 20.6 % (10.0-50.0); Mean Corpuscular Hemoglobin 29.1 pg (28.0-32.0); Mean Corpuscular Hgb Conc. 34.1 g/dL (32.0-36.0); Mean Corpuscular Volume 85.4 fL (80.0-100.0); Monocytes # (auto) 0.5 10 ^3/uL (0-1.3); Neutrophils # (auto) 5.4 10 ^3/uL (1.6-8.6); Neutrophils % (auto) 71.4 % (37.0-80.0); Platelet Count (auto) 388 10^3/uL (140-450); Red Blood Cells 4.88 10^6/uL (4.5-5.90); Red Cell Distribution Width 13.4 % (11.8-14.3); White Blood Cell 7.6 10^3/uL (4.4-10.8)
[2024-05-13 21:39] LABS: Urine Bacteria None Seen /hpf (None Seen)
[2024-05-13 21:46] LABS: Urine Blood Negative /uL (Negative); Urine Clarity Clear (Clear); Urine Color Yellow (Yellow); Urine Mucus FEW (None Seen); Urine Protein, UAD TRACE (Negative); Urine Specific Gravity 1.018 (1.001-1.035); Urine Urobilinogen 3 mg/dL (Negative); Urine WBC 1 /hpf (0 - 3)
[2024-05-13 21:53] LABS: Amphetamine Screen, Urine Neg (NEGATIVE)
[2024-05-13 21:54] LABS: Barbiturate Scree,Urine Neg (NEGATIVE); Benzodiazephine Screen, Urine Neg (NEGATIVE); Cannabinoid Screen, Urine Pos (NEGATIVE); Cocaine Screen, Urine Neg (NEGATIVE); Opiate Scree,Urine Pos (NEGATIVE); Phencyclidine Screen, Urine Neg (NEGATIVE)
[2024-05-14 01:00] VITALS: BP 127/81; PULSE 85; RESP 16; TEMP 99.1; O2SAT 95
[2024-05-14 05:00] VITALS: BP 147/88; PULSE 82; RESP 16; TEMP 98.4; O2SAT 98
[2024-05-14 08:00] VITALS: PULSE 92; RESP 18; O2SAT 96
[2024-05-14 09:00] VITALS: BP 122/80; PULSE 92; RESP 18; TEMP 97.6; O2SAT 96
[2024-05-14 10:31] LABS: Basophils # (auto) 0 10 ^3/uL (0-0.2); Basophils % (auto) 0.5 % (0.0-2.0); Eosinophils # (auto) 0.1 10 ^3/uL (0-0.8); Eosinophils % (auto) 0.9 % (0.0-7.0); Hematocrit 43.5 % (41.0-53.0); Hemoglobin 14.9 g/dL (13.5-17.5); Lymphocytes # (auto) 1.9 10 ^3/uL (0.4-5.4); Mean Corpuscular Hemoglobin 29.3 pg (28.0-32.0); Mean Corpuscular Hgb Conc. 34.2 g/dL (32.0-36.0); Mean Corpuscular Volume 85.7 fL (80.0-100.0); Monocytes # (auto) 0.7 10 ^3/uL (0-1.3); Monocytes % (auto) 9.5 % (0.0-12.0); Neutrophils % (auto) 64.1 % (37.0-80.0); Nucleated Red Blood Cells % 0.1 %; Platelet Count (auto) 397 10^3/uL (140-450); Red Blood Cells 5.08 10^6/uL (4.5-5.90); Red Cell Distribution Width 13.7 % (11.8-14.3); White Blood Cell 7.8 10^3/uL (4.4-10.8)
[2024-05-14 11:02] LABS: Alanine Aminotransferase 21 U/L (7-40); Albumin 4.3 g/dL (3.2-4.8); Alkaline Phosphatase 85 U/L (46-116); Anion Gap 4 (5-15); Aspartate Aminotransferase 14 U/L (13-40); BUN/Creatinine Ratio 7.9 (10.0-20.0); Blood Urea Nitrogen 8 mg/dL (9-23); Calcium 9.5 mg/dL (8.7-10.4); Carbon Dioxide 30 mmol/L (20-30); Chloride 100 mmol/L (98-107); Glucose 173 mg/dL (74-106); Potassium 3.2 mmol/L (3.5-5.1); Sodium 134 mmol/L (136-145); Total Protein 7.2 g/dL (5.7-8.2)
[2024-05-14 13:00] VITALS: BP 147/96; PULSE 73; RESP 18; TEMP 98.2; O2SAT 98
[2024-05-14] MEDS ORDERED: POTASSIUM CHL 20 Meq TABLET PO ONE (14:30)
[2024-05-14] MEDS: POTASSIUM CHL 20 Meq TABLET PO ONE (14:39)
[2024-05-14] MEDS ORDERED: SUCR1SUS26 PO (15:10)
[2024-05-14] MEDS ORDERED: PANT40T PO (15:11)
== END 2024-05-14 14:35 | disposition left against medical advice (07) | DRG 241 ==
LOC: ER 05:12 → OVERFLOW 10:43 → WEST WING 17:58
PROVIDERS: ADMIT Nurse Practitioner Family; ATTEND Internal Medicine
DX: K29.71 Gastritis, unspecified, with bleeding (principal); R45.851 Suicidal ideations; E11.22 Type 2 diabetes mellitus with diabetic chronic kidney disease; K44.9 Diaphragmatic hernia without obstruction or gangrene; K27.9 Peptic ulcer, site unspecified, unspecified as acute or chronic, without hemorrhage or perforation; N18.9 Chronic kidney disease, unspecified; E11.65 Type 2 diabetes mellitus with hyperglycemia; F32.A Depression, unspecified; K21.9 Gastro-esophageal reflux disease without esophagitis; F41.9 Anxiety disorder, unspecified; F39 Unspecified mood [affective] disorder; E78.5 Hyperlipidemia, unspecified; I12.9 Hypertensive chronic kidney disease with stage 1 through stage 4 chronic kidney disease, or unspecified chronic kidney disease; F12.20 Cannabis dependence, uncomplicated; Z79.4 Long term (current) use of insulin; Z79.899 Other long term (current) drug therapy; Z87.11 Personal history of peptic ulcer disease; Z87.891 Personal history of nicotine dependence; Z76.5 Malingerer [conscious simulation]
CPT/HCPCS: 36415; 74176; 80048; 80053; 80307; 81001; 82962; 83690; 84132; 85025; 96361; 96374; 96375; 96376; G0378; J1815; J2405; J2470

== ENCOUNTER 2024-06-09 20:41 | Inpatient (IN) | payer MEDICAID ==
[~2024-06-09] VITALS: Ht 172.7 cm; Wt 82.5 kg
[~2024-06-09 20:41] MED LIST changes: -ASCO500T11 PO; -SUCR1TAB PO; -ZOFR4T PO
[2024-06-09 21:25] LABS: Basophils # (auto) 0.1 10 ^3/uL (0-0.2); Basophils % (auto) 0.4 % (0.0-2.0); Eosinophils # (auto) 0 10 ^3/uL (0-0.8); Hematocrit 46.4 % (41.0-53.0); Hemoglobin 15.5 g/dL (13.5-17.5); Lymphocytes # (auto) 0.6 10 ^3/uL (0.4-5.4); Lymphocytes % (auto) 4.2 % (10.0-50.0); Mean Corpuscular Hemoglobin 29.4 pg (28.0-32.0); Mean Corpuscular Hgb Conc. 33.3 g/dL (32.0-36.0); Mean Corpuscular Volume 88.2 fL (80.0-100.0); Monocytes # (auto) 0.4 10 ^3/uL (0-1.3); Monocytes % (auto) 2.4 % (0.0-12.0); Neutrophils # (auto) 14.4 10 ^3/uL (1.6-8.6); Platelet Count (auto) 412 10^3/uL (140-450); Red Blood Cells 5.27 10^6/uL (4.5-5.90); Red Cell Distribution Width 14.1 % (11.8-14.3); White Blood Cell 15.5 10^3/uL (4.4-10.8)
[2024-06-09 21:50] LABS: Alanine Aminotransferase 26 U/L (7-40); Albumin 5.3 g/dL (3.2-4.8); Alkaline Phosphatase 125 U/L (46-116); Anion Gap 18 (5-15); Aspartate Aminotransferase 9 U/L (13-40); BUN/Creatinine Ratio 7.7 (10.0-20.0); Bilirubin, Total 0.8 mg/dL (0.2-1.0); Blood Urea Nitrogen 26 mg/dL (9-23); Calcium 10.3 mg/dL (8.7-10.4); Carbon Dioxide 18 mmol/L (20-30); Chloride 89 mmol/L (98-107); Potassium 4.2 mmol/L (3.5-5.1); Sodium 125 mmol/L (136-145); Total Protein 8.7 g/dL (5.7-8.2)
[2024-06-09] MEDS: PANTOPRAZOLE 40 MG/10 ML VIAL INJ IV ONE (21:57)
[2024-06-09] MEDS: ONDANSETRON HCL 4 MG/2 ML VIAL IV ONE (21:58)
[2024-06-09] MEDS: SODIUM CHLORIDE 0.9% 1,000 ML IV ONE (22:01)
[2024-06-09 22:13] LABS: Glucose 846 mg/dL (74-106)
[2024-06-09] MEDS ORDERED: DEXTROSE (50%) 50ML SYRG IV PRN (23:45)
[2024-06-10] MEDS ORDERED: hydrALAZINE HCL 20 MG/ML VL IV PRN
[2024-06-10] MEDS ORDERED: DOCUSATE SOD 100 MG CAP PO PRN
[2024-06-10] MEDS ORDERED: NITROGLYCERIN 0.4 MG SL TAB SL PRN
[2024-06-10] MEDS ORDERED: MORPHINE SULFATE INJ 2 MG/ml SYRG IV PRN
[2024-06-10] MEDS: MORPHINE SULFATE 4 MG/ML SYR/VIAL IV ONE (00:48)
[2024-06-10 01:00] VITALS: PULSE 97; RESP 20; O2SAT 99
[2024-06-10] MEDS: InsuLIN REG 1unit/0.01ml Soln (100units/ml) IV ONE (01:00)
[2024-06-10] MEDS: INSULIN LANTUS (GLARGINE) 1 /0.01ml (100units/ml) SC ONE (01:00)
[2024-06-10] MEDS: SODIUM CHLORIDE 0.9% 1,000 ML IV ONE (01:01)
[2024-06-10] MEDS: INSULIN DRIP 100 UNIT/100ML 100 ML IV SCH (01:01)
[2024-06-10] MEDS: cefTRIAXone 1GM/50ML D5W 50 ML IV ONE (01:08)
[2024-06-10 01:44] LABS: Chloride 98 mmol/L (98-107); Potassium 3.6 mmol/L (3.5-5.1)
[2024-06-10 01:45] LABS: Anion Gap 14 (5-15); Carbon Dioxide 19 mmol/L (20-30)
[2024-06-10 01:46] LABS: Calcium 9.6 mg/dL (8.7-10.4)
[2024-06-10 01:51] LABS: BUN/Creatinine Ratio 8.9 (10.0-20.0); Blood Urea Nitrogen 24 mg/dL (9-23); Magnesium 2.3 mg/dL (1.6-2.6)
[2024-06-10 01:52] LABS: Phosphorus 3.7 mg/dL (2.4-5.1)
[2024-06-10] MEDS: SODIUM CHLORIDE 0.9% 1,000 ML IV SCH ×4 (01:59→10:45)
[2024-06-10 02:11] LABS: Sodium 131 mmol/L (136-145)
[2024-06-10 02:12] LABS: Glucose 620 mg/dL (74-106)
[2024-06-10 06:15] LABS: Basophils # (auto) 0 10 ^3/uL (0-0.2); Basophils % (auto) 0.2 % (0.0-2.0); Eosinophils # (auto) 0 10 ^3/uL (0-0.8); Hematocrit 39.5 % (41.0-53.0); Hemoglobin 13.8 g/dL (13.5-17.5); Lymphocytes # (auto) 1.4 10 ^3/uL (0.4-5.4); Lymphocytes % (auto) 10.2 % (10.0-50.0); Mean Corpuscular Hemoglobin 29.9 pg (28.0-32.0); Mean Corpuscular Volume 85.5 fL (80.0-100.0); Monocytes # (auto) 1.1 10 ^3/uL (0-1.3); Monocytes % (auto) 8.3 % (0.0-12.0); Neutrophils # (auto) 11.2 10 ^3/uL (1.6-8.6); Neutrophils % (auto) 81.3 % (37.0-80.0); Platelet Count (auto) 363 10^3/uL (140-450); Red Blood Cells 4.62 10^6/uL (4.5-5.90); Red Cell Distribution Width 13.8 % (11.8-14.3); White Blood Cell 13.8 10^3/uL (4.4-10.8)
[2024-06-10 06:20] LABS: Alanine Aminotransferase 20 U/L (7-40); Albumin 4.5 g/dL (3.2-4.8); Alkaline Phosphatase 99 U/L (46-116); Anion Gap 6 (5-15); Aspartate Aminotransferase 9 U/L (13-40); BUN/Creatinine Ratio 12.6 (10.0-20.0); Bilirubin, Total 0.4 mg/dL (0.2-1.0); Blood Urea Nitrogen 23 mg/dL (9-23); Calcium 9.4 mg/dL (8.7-10.4); Carbon Dioxide 26 mmol/L (20-30); Potassium 3.6 mmol/L (3.5-5.1); Sodium 141 mmol/L (136-145); Total Protein 7.4 g/dL (5.7-8.2)
[2024-06-10 06:36] LABS: Urine Bacteria None Seen /hpf (None Seen)
[2024-06-10 06:42] LABS: Chloride 109 mmol/L (98-107); Glucose 177 mg/dL (74-106)
[2024-06-10 08:09] LABS: Urine Blood Negative /uL (Negative); Urine Clarity Clear (Clear); Urine Color Light-Yellow (Yellow); Urine Protein, UAD TRACE (Negative); Urine Specific Gravity 1.031 (1.001-1.035); Urine Urobilinogen Normal (Negative); Urine WBC 1 /hpf (0 - 3); Urine pH 5.5 (5.0-9.0)
[2024-06-10] MEDS ORDERED: DEXTROSE (50%) 50ML SYRG IV PRN (08:45)
[2024-06-10] MEDS: MORPHINE SULFATE INJ 2 MG/ml SYRG IV PRN (08:55)
[2024-06-10] MEDS ORDERED: INSULIN LANTUS (GLARGINE) 1 /0.01ml (100units/ml) SC SCH (10:00)
[2024-06-10] MEDS ORDERED: FAMOTIDINE (10MG/ML) 2ML VL IV SCH (10:00)
[2024-06-10] MEDS: FAMOTIDINE (10MG/ML) 2ML VL IV SCH (10:14)
[2024-06-10] MEDS: cefTRIAXone 1GM/50ML D5W 50 ML IV SCH (10:14)
[2024-06-10 11:25] LABS: Magnesium 2.2 mg/dL (1.6-2.6)
[2024-06-10 11:26] LABS: Phosphorus 4.3 mg/dL (2.4-5.1)
[2024-06-10] MEDS: InsuLIN REG 1unit/0.01ml Soln (100units/ml) SC SCH (12:00)
[2024-06-10] MEDS: ACCU-CHEK COMFORT CURVE STRIP VI SCH ×2 (12:09)
[2024-06-10 15:00] VITALS: RESP 16
[2024-06-10 15:02] VITALS: BP 159/94; PULSE 80; RESP 18; TEMP 98.3; O2SAT 98
[2024-06-10] MEDS: HYDROcodone-ACET 5/325MG TAB PO PRN (18:18)
[2024-06-10 18:58] LABS: Protein, Urine 32.1 mg/dL (0.0-11.9)
[2024-06-10 19:01] LABS: Creatinine, Urine 153.45 mg/dL (30.0-125.0); Creatinine, Urine 153.84 mg/dL (30.0-125.0); Urine Protein/Creatinine Ratio 0.21
[2024-06-10 20:00] VITALS: PULSE 84; PULSE 85; PULSE 98; RESP 18; O2SAT 96
[2024-06-10] MEDS: ACETAMINOPHEN 325 MG TAB PO PRN (20:42)
[2024-06-10] MEDS: ONDANSETRON HCL 4 MG/2 ML VIAL IV PRN (20:42)
[2024-06-10 21:00] VITALS: BP 134/77; PULSE 84; RESP 18; TEMP 98; O2SAT 96
[2024-06-11] VITALS (10 sets, daily range): BP systolic 129–147; BP diastolic 47–93; PULSE 73–91; RESP 17–18; TEMP 98–99.1; O2SAT 94–98
[2024-06-11 07:03] LABS: Basophils # (auto) 0 10 ^3/uL (0-0.2); Basophils % (auto) 0.5 % (0.0-2.0); Eosinophils # (auto) 0 10 ^3/uL (0-0.8); Eosinophils % (auto) 0.5 % (0.0-7.0); Hematocrit 37.6 % (41.0-53.0); Hemoglobin 13.2 g/dL (13.5-17.5); Lymphocytes # (auto) 2.1 10 ^3/uL (0.4-5.4); Lymphocytes % (auto) 23.3 % (10.0-50.0); Mean Corpuscular Hemoglobin 30.2 pg (28.0-32.0); Mean Corpuscular Hgb Conc. 35.2 g/dL (32.0-36.0); Mean Corpuscular Volume 85.8 fL (80.0-100.0); Monocytes # (auto) 0.6 10 ^3/uL (0-1.3); Monocytes % (auto) 6.3 % (0.0-12.0); Neutrophils # (auto) 6.3 10 ^3/uL (1.6-8.6); Neutrophils % (auto) 69.4 % (37.0-80.0); Platelet Count (auto) 314 10^3/uL (140-450); Red Blood Cells 4.38 10^6/uL (4.5-5.90); Red Cell Distribution Width 13.8 % (11.8-14.3); White Blood Cell 9.1 10^3/uL (4.4-10.8)
[2024-06-11 07:27] LABS: Alanine Aminotransferase 18 U/L (7-40); Albumin 3.9 g/dL (3.2-4.8); Alkaline Phosphatase 82 U/L (46-116); Anion Gap 9 (5-15); Aspartate Aminotransferase 19 U/L (13-40); BUN/Creatinine Ratio 13.2 (10.0-20.0); Blood Urea Nitrogen 12 mg/dL (9-23); Calcium 9.1 mg/dL (8.7-10.4); Carbon Dioxide 27 mmol/L (20-30); Chloride 105 mmol/L (98-107); Glucose 79 mg/dL (74-106); Magnesium 1.9 mg/dL (1.6-2.6); Potassium 3.1 mmol/L (3.5-5.1); Sodium 141 mmol/L (136-145)
[2024-06-11 07:28] LABS: Bilirubin, Total 0.6 mg/dL (0.2-1.0); Total Protein 6.3 g/dL (5.7-8.2)
[2024-06-11] MEDS ORDERED: MORPHINE SULFATE INJ 2 MG/ml SYRG IV PRN (10:00)
[2024-06-11] MEDS: MAGNESIUM SULFATE 1GM/100ML 100 ML IV SCH (12:08)
[2024-06-11] MEDS: POTASSIUM CHL 20MEQ/100ML 100 ML IV SCH (12:13)
[2024-06-11] MEDS: MAGNESIUM SULFATE 1GM/100ML 100 ML IV ONE (14:37)
[2024-06-11] MEDS: POTASSIUM EFFERVESENT TAB 25 MEQ PO ONE (18:34)
[2024-06-11] MEDS: NYSTATIN TOPICAL POWDER 15GM TOP SCH (21:45)
[2024-06-11] MEDS: NYSTATIN TOPICAL CREAM 15GM TOP SCH (21:45)
[2024-06-12 01:00] VITALS: BP 132/87; PULSE 67; RESP 18; TEMP 99.2; O2SAT 97
[2024-06-12 05:00] VITALS: BP 154/97; PULSE 79; RESP 18; TEMP 98.3; O2SAT 98
[2024-06-12 06:36] LABS: Basophils # (auto) 0 10 ^3/uL (0-0.2); Basophils % (auto) 0.5 % (0.0-2.0); Eosinophils # (auto) 0.1 10 ^3/uL (0-0.8); Eosinophils % (auto) 1.4 % (0.0-7.0); Hematocrit 40.9 % (41.0-53.0); Hemoglobin 14.2 g/dL (13.5-17.5); Lymphocytes # (auto) 1.8 10 ^3/uL (0.4-5.4); Lymphocytes % (auto) 32.5 % (10.0-50.0); Mean Corpuscular Hemoglobin 29.9 pg (28.0-32.0); Mean Corpuscular Hgb Conc. 34.7 g/dL (32.0-36.0); Mean Corpuscular Volume 86.3 fL (80.0-100.0); Monocytes # (auto) 0.4 10 ^3/uL (0-1.3); Monocytes % (auto) 6.7 % (0.0-12.0); Neutrophils # (auto) 3.3 10 ^3/uL (1.6-8.6); Neutrophils % (auto) 58.9 % (37.0-80.0); Nucleated Red Blood Cells % 0.2 %; Platelet Count (auto) 334 10^3/uL (140-450); Red Blood Cells 4.74 10^6/uL (4.5-5.90); Red Cell Distribution Width 13.8 % (11.8-14.3); White Blood Cell 5.5 10^3/uL (4.4-10.8)
[2024-06-12 06:37] LABS: Alanine Aminotransferase 21 U/L (7-40); Albumin 4.2 g/dL (3.2-4.8); Alkaline Phosphatase 87 U/L (46-116); Anion Gap 7 (5-15); Aspartate Aminotransferase 19 U/L (13-40); Calcium 9.5 mg/dL (8.7-10.4); Carbon Dioxide 29 mmol/L (20-30); Chloride 104 mmol/L (98-107); Glucose 131 mg/dL (74-106); Magnesium 2.1 mg/dL (1.6-2.6); Potassium 3.8 mmol/L (3.5-5.1); Sodium 140 mmol/L (136-145)
[2024-06-12 06:38] LABS: BUN/Creatinine Ratio 5.6 (10.0-20.0); Bilirubin, Total 0.8 mg/dL (0.2-1.0); Blood Urea Nitrogen < 5 mg/dL (9-23); Total Protein 6.8 g/dL (5.7-8.2)
[2024-06-12 08:00] VITALS: PULSE 74; PULSE 75; RESP 16; O2SAT 95
[2024-06-12 09:00] VITALS: BP 151/92; PULSE 76; RESP 17; TEMP 98; O2SAT 97
[2024-06-12] MEDS ORDERED: INSLANTI SC (12:22)
[2024-06-12] MEDS ORDERED: HYDR-4902 PO (12:22)
[2024-06-12 12:30] LABS: Hepatitis B Surface Antigen Negative (Negative)
[2024-06-12 12:50] LABS: Hepatitis C Antibody Negative (Negative)
== END 2024-06-12 13:50 | disposition home or self-care (01) | DRG 420 ==
LOC: ER 20:41 → EDBD 20:41 → OVERFLOW 23:52 → TELE-WESTW 06-10 14:59
PROVIDERS: ADMIT Nurse Practitioner Family; ATTEND Family Medicine
DX: E11.10 Type 2 diabetes mellitus with ketoacidosis without coma (principal); N17.0 Acute kidney failure with tubular necrosis; D72.829 Elevated white blood cell count, unspecified; E87.1 Hypo-osmolality and hyponatremia; E78.5 Hyperlipidemia, unspecified; E86.0 Dehydration; I12.9 Hypertensive chronic kidney disease with stage 1 through stage 4 chronic kidney disease, or unspecified chronic kidney disease; N18.9 Chronic kidney disease, unspecified; K21.9 Gastro-esophageal reflux disease without esophagitis; G89.29 Other chronic pain; Z80.1 Family history of malignant neoplasm of trachea, bronchus and lung; Z87.11 Personal history of peptic ulcer disease; Z91.199 Patient's noncompliance with other medical treatment and regimen due to unspecified reason; Z79.899 Other long term (current) drug therapy; Z79.4 Long term (current) use of insulin
CPT/HCPCS: 36415; 36600; 76775; 80048; 80053; 81001; 82010; 82306; 82570; 82805; 82962; 83036; 83735; 83930; 83935; 83970; 84100; 84156; 84300; 85025; 86803; 87081; 87340; 93005; 99291; G0378; J1815; J2405; J2470; J3480; J3490

== ENCOUNTER 2024-08-04 07:43 | Emergency (ER) | payer MEDICAID ==
[~2024-08-04] VITALS: Ht 172.7 cm; Wt 100.0 kg
[~2024-08-04 07:43] MED LIST changes: -SUCR1SUS26 PO
[2024-08-04] MEDS ORDERED: DEXTROSE (50%) 50ML SYRG IV PRN (08:00)
--- NOTE | 2024-08-04 08:01 | ED.PDOC ---
GI ASSESSMENT HPI Comments 44 year old male ARIS presents to the ED with chief complaint of abdominal pain. EMS reports that the patient has been experiencing epigastric abdominal pain for the past 2 days with associated nausea and vomiting. EMS relays that the patient had a high BG read on scene with patient having history of DM. Patient asleep d uring examination. EMS denies any further history at this time. Time Seen by MD: 07:58 Primary Care Provider: OLIVER Reviewed Notes: Nurses Notes, Medications, Allergies Allergies: Coded Allergies: NO KNOWN ALLERGIES (Unverified , 09/21/20) Home Meds Active Scripts Hydrocodone-Acetaminophen (Hydrocodone Bitartrate/AC 5-325 mg) 1 Tab Tab, 1 TAB PO Q12HP PRN, #20 TAB Prov:ROGELIO COBB MD 06/12/24 Insulin Glargine (Lantus) 100 Unit/Ml Inj, 80 UNIT SC HS for 96 Days, #10 ML 1 Refill Prov:ROGELIO COBB MD 06/12/24 Pantoprazole Sodium Sesquihydr (Pantoprazole Sodium) 40 Mg Tab, 40 MG PO BID, #60 TAB Prov:NUBIA PRICE MD 12/21/23 Reported Medications Insulin Lispro (Humalog Kwikpen) 100 Unit/Ml Inj, 6 UNIT SC TIDAC for 100 Days, #24 11/11/23 Information Source: Patient Mode of Arrival: Ambulatory Timing: Days Duration: Since onset Prehospital treatment: None Quality: Aching Vomitus: Watery Stool: Normal Severity: Moderate Recent: None Recent Hx of: Diabetes Pain Location: Epigastric Modifying Factors: Nothing Associated sign and symptoms: Nausea, Vomiting, Abdominal Pain Past Medical History PAST MEDICAL HISTORY: DM, GERD, High Lipids, HTN, PUD Past Medical History (Other): Gastric ulcer Surgical History: Denies all surgeries Family History Family History: Reviewed,noncontributory to illness Social History Smoker: Non-Smoker Alcohol: Occasionally Drugs: Marijuana Lives In: Home Constitutional: denies: chills, diaphoresis, fatigue, fever, malaise, sweats, weakness, others EENTM: denies: blurred vision, double vision, ear bleeding, ear discharge, ear drainage, ear pain, ear ringing, eye pain, eye redness, hearing loss, mouth pain, mouth swelling, nasal discharge, nose bleeding, nose congestion, nose pain, photophobia, tearing, throat pain, throat swelling, voice changes, others Respiratory: denies: cough, hemoptysis, orthopnea, SOB at rest, shortness of breath, SOB with excertion, stridor, wheezing, others Cardiovascular: denies: chest pain, dizzy spells, diaphoresis, Dyspnea on exertion, edema, irregular heart beat, left arm pain, lightheadedness, palpitations, PND, syncope, others Gastrointestinal: reports: abdominal pain, nausea, vomiting; denies: abdomen distended, blood streaked bowels, constipated, diarrhea, dysphagia, difficulty swallowing, hematemesis, melena, poor appetite, poor fluid intake, rectal bl eeding, rectal pain, others Genitourinary: denies: burning, dysuria, flank pain, frequency, hematuria, inc ontinence, penile discharge, penile sore, pain, testicle pain, testicle swelling, urgency, others Neurological: denies: dizziness, fainting, headache, left sided numbness, left sided weakness, numbness, paresthesia, pre-existing deficit, right sided numbness, right sided weakness, seizure, speech problems, tingling, tremors, weakness, others Musculoskeletal: denies: back pain, gout, joint pain, joint swelling, muscle pain, muscle stiffness, neck pain, others Integumetry: denies: bruises, change in color, change in hair/nails, dryness, laceration, lesions, lumps, rash, wounds, others Allergic/Immunocompromised: denies: Difficulty Healing, Frequent Infections, Hives, Itching, others Hematologic/Lymphatic: denies: anemia, blood clots, easy bleeding, easy bruising, swollen glands, others Endocrine: denies: excessive hunger, excessive sweating, excessive thirst, excessive urination, flushing, intolerance to cold, intolerance to heat, unexplained weight gain, unexplained weight loss, others Psychiatric: denies: anxiety, bipolar disorder, depression, hopeless, panic disorder, schizophrenia, sleepless, suicidal, others All Other Systems: Reviewed and Negative Physical Exam General Appearance: Moderate Distress, Normal HEENT: Normal ENT Inspection, PERRL/EOMI Neck: Full Range of Motion, Non-Tender, Normal, Normal Inspection Respiratory: Chest Non-Tender, Lungs Clear, No Accessory Muscle Use, No Respiratory Distress, Normal Breath Sounds Cardiovascular: No Edema, No JVD, No Murmur, No Gallop, Normal Peripheral Pulses, Tachycardia Breast Exam: Deferred Gastrointestinal: No Organomegaly, Non Tender, No Pulsatile Mass, Normal Bowel Sounds, Soft Genitalia: Deferred Pelvic: Deferred Rectal: Deferred Extremities: No calf tenderness, Normal capillary refill, Normal inspection, Normal range of motion, Non-tender, No pedal edema Musculoskeletal : Apperance: Normal Neurologic: Alert, service technician II-XII nml as Tested, No Motor Deficits, Normal Affect, Normal Mood, No Sensory Deficits Cerebellar Function: Normal Reflexes: Normal Skin: Dry, Normal Color, Warm Peripheral Pulses: 3+ Radial (R), 3+ Radial (L) Lymphatic: No Adenopathy Was a procedure done? Was a procedure done?: No GI differential Dx Differential Diagnosis: Constipation, Diverticular disease, Esophagitis, Gastritis/PUD, Gastroenteritis X-Ray, Labs, Meds, VS Vital Signs Date Time Temp Pulse Resp B/P (MAP) Pulse Ox O2 Delivery O2 Flow Rate FiO2 08/04/24 08:47 85 18 98 Room Air* 0 21 08/04/24 08:33 98.1 85 17 154/94 (114) 98 98.1 08/04/24 07:59 95 08/04/24 07:47 98.1 86 16 140/84 (102) 98 Lab Test 08/04/24 10:30 08/04/24 08:31 08/04/24 08:27 08/04/24 08:13 Range/Units POC Glucose 330 H 335 H 70-106 mg/dl Blood Gas Specimen Type Arterial Blood Gas Sample Site Right radial Blood Gas Patient Temperature 37.0 Arterial Blood Date Drawn [id number] Arterial Blood pH 7.407 7.350-7.450 Arterial Blood Partial Pressure CO2 38.0 35.0-48.0 mmHg Arterial Blood Partial Pressure O2 70.7 L 83.0-108.0 mmHg Arterial Blood HCO3 23.4 21.0-28.0 mmol/L Arterial Blood Oxygen Saturation 93.8 L 94.0-98.0 % Arterial Blood Base Excess -0.9 -2.0-3.0 mmol/L Arterial Blood Oxyhemoglobin 92.2 L 94.0-98.0 % Arterial Blood Carboxyhemoglobin 1.3 0.5-1.5 % Arterial Blood Methemoglobin 0.4 0.0-1.5 % Umer Test Yes Blood Gas Total Hemoglobin 16.20 13.5-17.5 g/dL Blood Gas Modality Room air FiO2 % 21.0 White Blood Count 15.9 H 4.4-10.8 10^3/uL Red Blood Count 5.41 4.5-5.90 10^6/uL Hemoglobin 15.5 13.5-17.5 g/dL Hematocrit 45.6 41.0-53.0 % Mean Corpuscular Volume 84.4 80.0-100.0 fL Mean Corpuscular Hemoglobin 28.7 28.0-32.0 pg Mean Corpuscular Hemoglobin Concent 34.0 32.0-36.0 g/dL Red Cell Distribution Width 13.5 11.8-14.3 % Platelet Count 402 140-450 10^3/uL Mean Platelet Volume 7.5 6.9-10.8 fL Neutrophils (%) (Auto) 87.5 H 37.0-80.0 % Lymphocytes (%) (Auto) 7.4 L 10.0-50.0 % Monocytes (%) (Auto) 4.7 0.0-12.0 % Eosinophils (%) (Auto) 0.1 0.0-7.0 % Basophils (%) (Auto) 0.3 0.0-2.0 % Neutrophils # (Auto) 13.9 H 1.6-8.6 10 ^3/uL Lymphocytes # (Auto) 1.2 0.4-5.4 10 ^3/uL Monocytes # (Auto) 0.7 0-1.3 10 ^3/uL Eosinophils # (Auto) 0 0-0.8 10 ^3/uL Basophils # (Auto) 0.1 0-0.2 10 ^3/uL Nucleated Red Blood Cells 0.0 % Sodium Level 142 136-145 mmol/L Potassium Level 3.3 L 3.5-5.1 mmol/L Chloride Level 105 98-107 mmol/L Carbon Dioxide Level 26 20-31 mmol/L Anion Gap 11 5-15 Blood Urea Nitrogen 20 9-23 mg/dL Creatinine 1.27 0.700-1.30 mg/dL Glomerular Filtration Rate Calc 71 >90 mL/min BUN/Creatinine Ratio 15.7 10.0-20.0 Serum Glucose 356 H 74-106 mg/dL Serum Osmolality 317 H 278-298 mOsm/kg Calcium Level 11.0 H 8.7-10.4 mg/dL Phosphorus Level 2.0 L 2.4-5.1 mg/dL Magnesium Level 2.1 1.6-2.6 mg/dL Beta-Hydroxybutyric Acid 0.434 H < 0.4 mmol/L Current Medications Medications (Trade) Dose Ordered Sig/Adina Route Start Time Stop Time Status Last Admin Sodium Chloride 1,000 ml @ 500 mls/hr Q2H IV 08/04/24 08:00 08/04/24 10:49 DC 08/04/24 08:41 Diagnostic Test (Pha) (Accu-Chek Comfort Curve T) 1 strip Q90MIN 08/04/24 09:00 08/04/24 10:49 DC 08/04/24 10:31 Insulin Glargine (Lantus) 15 units ONCE ONCE SC 08/04/24 08:00 08/04/24 08:01 DC 08/04/24 08:40 Ondansetron HCl (Zofran) 4 mg ONCE ONCE IV 08/04/24 08:45 08/04/24 08:46 DC 08/04/24 08:40 Patient alert. Complaining of abdominal discomfort. Vitals stable. Answering all questions. Blood sugar elevated. History of diabetes. Establish intravenous access. Was given fluids. Was given insulin. Was given Zofran. WBC elevated. Insists on leaving. No gap. ABG within normal limits. Reviewed his previous visit. He comes here frequently. Does not take care himself. Explained to the patient. Continue cardiac monitoring. Time of 1ST Reevaluation: 08:58 Reevaluation 1ST: Unchanged Patient Education/Counseling: Diagnosis, Treatment Family Education/Counseling: No Family Present Departure 1 Departure Time of Disposition: 11:39 Impression: Primary Impression: Uncontrolled diabetes mellitus Qualified Codes: E13.65 - Other specified diabetes mellitus with hyperglycemia Disposition: ADMITTED INPATIENT Admit to: Med Surg Condition: Guarded Critical Care Note Critical Care Time?: Yes (45 min-critical care time only) Stability Stability form required: No Heart Score Heart Score: Heart Score Response (Comments) Value History N/A 0 EKG N/A 0 Age N/A 0 Risk Factors N/A 0 Troponin N/A 0 Total 0 I personally scribed for JACK,REJI MD ([email or web address]) on 08/04/24 at 08:01. Electronically submitted by Min Collins ([email or web address]). REJI SANTIAGO MD Aug 04, 2024 08:01
[2024-08-04 08:33] VITALS: BP 154/94; TEMP 98.1
[2024-08-04] MEDS: ONDANSETRON HCL 4 MG/2 ML VIAL IV ONE (08:40)
[2024-08-04] MEDS: INSULIN LANTUS (GLARGINE) 1 /0.01ml (100units/ml) SC ONE (08:40)
[2024-08-04] MEDS: SODIUM CHLORIDE 0.9% 1,000 ML IV SCH (08:41)
[2024-08-04 08:44] LABS: Basophils # (auto) 0.1 10 ^3/uL (0-0.2); Basophils % (auto) 0.3 % (0.0-2.0); Eosinophils # (auto) 0 10 ^3/uL (0-0.8); Eosinophils % (auto) 0.1 % (0.0-7.0); Hematocrit 45.6 % (41.0-53.0); Hemoglobin 15.5 g/dL (13.5-17.5); Lymphocytes # (auto) 1.2 10 ^3/uL (0.4-5.4); Lymphocytes % (auto) 7.4 % (10.0-50.0); Mean Corpuscular Hemoglobin 28.7 pg (28.0-32.0); Mean Corpuscular Volume 84.4 fL (80.0-100.0); Monocytes # (auto) 0.7 10 ^3/uL (0-1.3); Monocytes % (auto) 4.7 % (0.0-12.0); Neutrophils # (auto) 13.9 10 ^3/uL (1.6-8.6); Neutrophils % (auto) 87.5 % (37.0-80.0); Platelet Count (auto) 402 10^3/uL (140-450); Red Blood Cells 5.41 10^6/uL (4.5-5.90); Red Cell Distribution Width 13.5 % (11.8-14.3); White Blood Cell 15.9 10^3/uL (4.4-10.8)
[2024-08-04 08:47] VITALS: PULSE 85; RESP 18; O2SAT 98
[2024-08-04 08:52] LABS: Anion Gap 11 (5-15); Carbon Dioxide 26 mmol/L (20-31); Chloride 105 mmol/L (98-107); Potassium 3.3 mmol/L (3.5-5.1); Sodium 142 mmol/L (136-145)
[2024-08-04 08:57] LABS: Glucose 356 mg/dL (74-106)
[2024-08-04 08:58] LABS: BUN/Creatinine Ratio 15.7 (10.0-20.0); Blood Urea Nitrogen 20 mg/dL (9-23); Magnesium 2.1 mg/dL (1.6-2.6)
[2024-08-04] MEDS: ACCU-CHEK COMFORT CURVE STRIP VI SCH (09:00)
[2024-08-04 09:08] LABS: Base Excess -0.9 mmol/L (-2.0-3.0)
[2024-08-04] MEDS: INSULIN DRIP 100 UNIT/100ML 100 ML IV SCH (09:18)
[2024-08-04] MEDS ORDERED: SODIUM CHLORIDE 0.9% 1,000 ML IV SCH ×2 (12:00→14:00)
--- NOTE | 2024-08-04 19:00 | ECG ---
[facility] Test Date: 2024-08-04 Test Time: 07:59:32 Pat Name: ROB DOUGLAS Department: ED Room: Gender: M Metal Leaf Layer: RENETTA JEWELLB: 1980 Requested By: REJI SANTIAGO Order Number: [id number] Reading MD: Measurements Intervals [place] Rate: 95 P: 46 VT: 138 QRS: 78 QRSD: 80 T: 16 QT: 347 QTc: 436 Interpretive Statements Sinus rhythm Baseline wander in lead(s) II,III,aVF,V5 Please click the below link to view image of tracing.
[2024-08-05] MEDS ORDERED: INSULIN LANTUS (GLARGINE) 1 /0.01ml (100units/ml) SC SCH (10:00)
== END 2024-08-04 10:49 | disposition left against medical advice (07) ==
LOC: EDBD 07:43 → ER 07:43
DX: E11.65 Type 2 diabetes mellitus with hyperglycemia (principal); K21.9 Gastro-esophageal reflux disease without esophagitis; I10 Essential (primary) hypertension; Z79.4 Long term (current) use of insulin; Z87.11 Personal history of peptic ulcer disease
CPT/HCPCS: 36415; 36600; 80048; 82010; 82805; 82962; 83735; 83930; 84100; 85025; 93005; 96372; 96374; 99284; J1815; J2405

== ENCOUNTER 2024-08-05 09:00 | Inpatient (IN) | payer MEDICAID ==
[~2024-08-05] VITALS: Ht 172.7 cm; Wt 81.1 kg
--- NOTE | 2024-08-05 09:11 | ED.PDOC ---
History of Present Illness HPI Comments 44Y M with PMHx DM, HTN, HLD, and GERD presents to ED via EMS for chief complaint abd pain. Per EMS, pt has been experiencing epigastric abd pain for 3days with nausea and vomiting. Upon EMS arrival, pt's BS was 303. Pt was given Zofran 8 by EMS. Pt states he took his insulin today. Pt was seen at [facility] ER yes terday 08/04/2024 but he left AMA. No known allergies. Time Seen by MD: 09:04 Primary Care Provider: UNKNOWN NAME Reviewed Notes: Medications, Allergies Allergies: Coded Allergies: NO KNOWN ALLERGIES (Unverified , 09/21/20) Home Meds Active Scripts Hydrocodone-Acetaminophen (Hydrocodone Bitartrate/AC 5-325 mg) 1 Tab Tab, 1 TAB PO Q12HP PRN, #20 TAB Prov:ROGELIO COBB MD 06/12/24 Insulin Glargine (Lantus) 100 Unit/Ml Inj, 80 UNIT SC HS for 96 Days, #10 ML 1 Refill Prov:ROGELIO COBB MD 06/12/24 Pantoprazole Sodium Sesquihydr (Pantoprazole Sodium) 40 Mg Tab, 40 MG PO BID, #60 TAB Prov:NUBIA PRICE MD 12/21/23 Reported Medications Insulin Lispro (Humalog Kwikpen) 100 Unit/Ml Inj, 6 UNIT SC TIDAC for 100 Days, #24 11/11/23 Information Source: Patient, Emergency Med Personnel Mode of Arrival: EMS Severity: Mild Timing: Days Duration: Since onset Prehospital treatment: Other Past Medical History PAST MEDICAL HISTORY: DM, GERD, High Lipids, HTN, PUD Surgical History: Denies all surgeries Family History Family History: Reviewed,noncontributory to illness Social History Smoker: Non-Smoker Alcohol: Occasionally Drugs: Marijuana Lives In: Home Constitutional: denies: chills, diaphoresis, fatigue, fever, malaise, sweats, weakness, others EENTM: denies: blurred vision, double vision, ear bleeding, ear discharge, ear drainage, ear pain, ear ringing, eye pain, eye redness, hearing loss, mouth pain, mouth swelling, nasal discharge, nose bleeding, nose congestion, nose pain, photophobia, tearing, throat pain, throat swelling, voice changes, others Respiratory: denies: cough, hemoptysis, orthopnea, SOB at rest, shortness of breath, SOB with excertion, stridor, wheezing, others Cardiovascular: denies: chest pain, dizzy spells, diaphoresis, Dyspnea on exertion, edema, irregular heart beat, left arm pain, lightheadedness, palpi tations, PND, syncope, others Gastrointestinal: reports: abdominal pain, nausea, vomiting; denies: abdomen distended, blood streaked bowels, constipated, diarrhea, dysphagia, difficulty swallowing, hematemesis, melena, poor appetite, poor fluid intake, rectal bleeding, rectal pain, others Genitourinary: denies: burning, dysuria, flank pain, frequency, hematuria, incontinence, penile discharge, penile sore, pain, testicle pain, testicle swelling, urgency, others Neurological: denies: dizziness, fainting, headache, left sided numbness, left sided weakness, numbness, paresthesia, pre-existing deficit, right sided numbness, right sided weakness, seizure, speech problems, tingling, tremors, weakness, others Musculoskeletal: denies: back pain, gout, joint pain, joint swelling, muscle pain, muscle stiffness, neck pain, others Integumetry: denies: bruises, change in color, change in hair/nails, dryness, laceration, lesions, lumps, rash, wounds, others Allergic/Immunocompromised: denies: Difficulty Healing, Frequent Infections, Hives, Itching, others Hematologic/Lymphatic: denies: anemia, blood clots, easy bleeding, easy bruising, swollen glands, others Endocrine: denies: excessive hunger, excessive sweating, excessive thirst, excessive urination, flushing, intolerance to cold, intolerance to heat, unexplained weight gain, unexplained weight loss, others Psychiatric: denies: anxiety, bipolar disorder, depression, hopeless, panic disorder, schizophrenia, sleepless, suicidal, others All Other Systems: Reviewed and Negative Physical Exam General Appearance: Moderate Distress, Normal HEENT: Normal ENT Inspection, Pharynx Normal, TMs Normal Neck: Full Range of Motion, Non-Tender, Normal, Normal Inspection Respiratory: Chest Non-Tender, Lungs Clear, No Accessory Muscle Use, No Respiratory Distress, Normal Breath Sounds Cardiovascular: No Edema, No JVD, No Murmur, No Gallop, Normal Peripheral Pulses, Regular Rate/Rhythm Breast Exam: Deferred Gastrointestinal: No Organomegaly, Non Tender, No Pulsatile Mass, Normal Bowel Sounds, Soft Genitalia: Deferred Pelvic: Deferred Rectal: Deferred Extremities: No calf tenderness, Normal capillary refill, Normal inspection, Normal range of motion, Non-tender, No pedal edema Musculoskeletal : Apperance: Normal Neurologic: Alert, annealer helper II-XII nml as Tested, No Motor Deficits, Normal Affect, Normal Mood, No Sensory Deficits Cerebellar Function: NOT DONE Reflexes: NOT DONE Skin: Dry, Normal Color, Warm Peripheral Pulses: 3+ Radial (R), 3+ Radial (L) Lymphatic: No Adenopathy Was a procedure done? Was a procedure done?: No Differential Dx Considerations may include: hyperglycemia Electrolyte imbalance X-Ray, Labs, Meds, VS Lab Test 08/05/24 09:28 Range/Units Sodium Level Pending Potassium Level Pending Chloride Level Pending Carbon Dioxide Level Pending Anion Gap Pending Blood Urea Nitrogen Pending Creatinine Pending Glomerular Filtration Rate Calc Pending BUN/Creatinine Ratio Pending Serum Glucose Pending Calcium Level Pending Patient alert. Complaining of abdominal discomfort. Vitals stable. Answering questions. Reviewed his previous visit. He does not take care himself. Establish intravenous access. Was given fluids. Was given insulin. Explained to the patient. Continue cardiac monitoring. Time of 1ST Reevaluation: 09:34 Reevaluation 1ST: Unchanged Patient Education/Counseling: Diagnosis, Treatment Family Education/Counseling: No Family Present Departure 1 Departure Time of Disposition: 09:39 Impression: Primary Impression: Uncontrolled diabetes mellitus Qualified Codes: E13.65 - Other specified diabetes mellitus with hyperglycemia Disposition: ADMITTED INPATIENT Admit to: Med Surg Condition: Guarded Critical Care Note Critical Care Time?: Yes (45 min-critical care time only) Stability Stability form required: No Heart Score Heart Score: Heart Score Response (Comments) Value History N/A 0 EKG N/A 0 Age N/A 0 Risk Factors N/A 0 Troponin N/A 0 Total 0 I personally scribed for REJI SANTIAGO MD ([email or web address]) on 08/05/24 at 09:11. Electronically submitted by Lucie Meraz ([email or web address]). REJI SANTIAGO MD Aug 05, 2024 09:11
[2024-08-05 09:37] VITALS: BP 169/92; PULSE 91; RESP 16; TEMP 98.2; O2SAT 98
[2024-08-05] MEDS: SODIUM CHLORIDE 0.9% 1,000 ML IV ONE (09:39)
[2024-08-05] MEDS: InsuLIN REG 1unit/0.01ml Soln (100units/ml) IV ONE (09:44)
[2024-08-05] MEDS: KETOROLAC TROMETH 30 MG/ML 1ML VIAL IV ONE (10:04)
[2024-08-05 10:08] LABS: Chloride 101 mmol/L (98-107); Potassium 3.5 mmol/L (3.5-5.1); Sodium 139 mmol/L (136-145)
[2024-08-05 10:09] LABS: Anion Gap 12 (5-15); Carbon Dioxide 26 mmol/L (20-31)
[2024-08-05 10:10] LABS: Calcium 9.8 mg/dL (8.7-10.4)
[2024-08-05 10:14] LABS: BUN/Creatinine Ratio 20.1 (10.0-20.0); Blood Urea Nitrogen 27 mg/dL (9-23); Glucose 308 mg/dL (74-106)
[2024-08-05] MEDS ORDERED: DEXTROSE (50%) 50ML SYRG IV PRN (11:30)
[2024-08-05] MEDS ORDERED: ACETAMINOPHEN 325 MG TAB PO PRN (11:30)
--- NOTE | 2024-08-05 11:42 | DVHHP2 ---
History of Present Illness Reason for Visit: Abdominal pain History of Present Illness This is 44Y M with PMHx DM, HTN, HLD, and GERD presents to ED via EMS for chief complaint abd pain. Per EMS, pt has been experiencing epigastric abd pain for 3days with nausea and vomiting. The patient denies changes in diet, changes in medication, sick contact with family/friends, and recent travel. Upon EMS arrival, pt's BS was 303. Pt was given Zofran 8 by EMS. Pt states he took his insulin today. Pt was seen at [facility] ER yesterday 08/04/2024 but he left AMA. The patient has monthly ER visits/hospital stay for abdominal pain. Upon evaluation, patient complaining of mid epigastric abdominal pain requesting Zofran as needed for nausea vomiting and pain medication. The patient states having recent neck surgery and back surgery last year currently awaiting to seek pain management. The patient is concerned about his symptoms and would like to be further evaluated and treated. The patient will be admitted under hospitalist care to the medical-surgical unit. The patient denies fever, dizziness, headache, chest pain, shortness of breath, diarrhea, constipation and other associated symptoms. The plan has been discussed with the patient and primary RN in which all questions concerns have been addressed. Cardiovascular: HTN, hyperipidemia GI: GERD, Peptic Ulcer disease Endocrine: Diabetes Past Surgical History Cervical surgery 2023 Lumbar surgery 2022 Family History: None Smoke: No ALCOHOL: rare Drugs: Marijuana Lives: with Family Domestic Violence: Neg Review of Systems Gastrointestinal: Nausea, Vomiting, Abdominal Pain Allergies: Coded Allergies: NO KNOWN ALLERGIES (Unverified , 09/21/20) Medications Current Medications Medications Dose Ordered Sig/Adina Route Start Time Stop Time Status Last Admin Dose Admin Ondansetron HCl 4 mg Q6HPRN PRN IV 08/05/24 11:30 UNV Ketorolac Tromethamine 15 mg Q6HPRN PRN IV 08/05/24 11:30 08/10/24 11:29 UNV Diagnostic Test (Pha) 1 strip ACHS 08/05/24 11:30 UNV Insulin Human Regular ACHS SC 08/05/24 11:30 UNV Dextrose 50 ml UD PRN IV 08/05/24 11:30 UNV Sodium Chloride 1,000 ml @ 75 mls/hr [id number] IV 08/05/24 11:30 UNV Acetaminophen/ Hydrocodone Bitart 1 tab Q4HP PRN PO 08/05/24 11:30 UNV Acetaminophen 650 mg Q6HP PRN PO 08/05/24 11:30 UNV Pantoprazole Sodium 40 mg BID PO 08/05/24 22:00 UNV Exam Vital Signs Vital Signs Date Time Temp Pulse Resp B/P (MAP) Pulse Ox O2 Delivery O2 Flow Rate FiO2 08/05/24 09:37 98.2 91 16 169/92 (117) 98 98.2 General Appearance: Alert, Oriented X3, Cooperative HEENT: Atraumatic, PERRLA, Mucous membr. moist/pink Respiratory: Clear to auscultation, Normal air movement Cardiovascular: Normal S1, Normal S2, No murmurs Abdominal: Normal bowel sounds, Soft, No hepatospenomegaly, No masses Extremities: No clubbing, No cyanosis, No edema, Normal pulses, No tenderness/swelling Skin: No rashes, No breakdown Neuro: Normal gait, Normal speech, Strength at 5/5 X4 ext, Normal tone, Sensation intact, Cranial nerves 3-12 NL Psych/Mental Status: Mental status NL Labs/Xrays Labs Test 08/05/24 09:32 08/05/24 09:28 Range/Units POC Glucose 286 H 70-106 mg/dl Sodium Level 139 136-145 mmol/L Potassium Level 3.5 3.5-5.1 mmol/L Chloride Level 101 98-107 mmol/L Carbon Dioxide Level 26 20-31 mmol/L Anion Gap 12 5-15 Blood Urea Nitrogen 27 H 9-23 mg/dL Creatinine 1.34 H 0.700-1.30 mg/dL Glomerular Filtration Rate Calc 66 >90 mL/min BUN/Creatinine Ratio 20.1 H 10.0-20.0 Serum Glucose 308 H 74-106 mg/dL Calcium Level 9.8 8.7-10.4 mg/dL Assessment/Plan Assessment/Plan Abdominal pain--patient's complaint of abdominal pain associated with nausea and vomiting x3 days The patient was given Zofran by EMS personnel Blood sugar found to be 303 No changes in food eaten, changes in diet, sick contact with family/friends and recent travel Monthly visit to ER and hospital stay at this facility for abdominal pain Reviewed previous CT abdomen/pelvis on 05/12 without acute finding Patient received Toradol in ER that gave him relief Admit to med surge unit Reviewed CBC within normal limits Reviewed BMP BG 286 Toradol as needed for pain Zofran as needed for nausea Pain medication as needed for pain Consider CT abdomen/pelvis--not indicated at this time Patient states history of GI workup with Dr. David Dasilva that was normal Type 2 DM-uncontrolled Regular insulin mild SS a.c. and HS Accu-Cheks per protocol Clear liquid diet GERD Protonix as prescribed Chronic pain syndrome Recent cervical surgery and history of lumbar surgery Jal as needed for pain Under no Pain Management care Reconcile home medication DVT prophylaxis not indicated as patient is ambulatory PUD prophylaxis continue his Protonix as prescribed Labs in a.m. Discussed plan of care with the patient in which all questions concerns have been addressed Plan discussed with: Patient My Orders Orders - PETE SPANN Procedure Category Date Status Time Ondansetron Hcl PHA 08/05/24 Logged (Zofran) 11:30 Ketorolac Injection PHA 08/05/24 Logged (Toradol Injection) 11:30 Dicyclomine Capsule PHA 08/05/24 Logged (Bentyl Capsule) 11:30 Glucose Blood PHA 08/05/24 Logged (Accu-Chek Comfort 11:30 Insulin R (Human) PHA 08/05/24 Logged (Insulin R) 11:30 Dextrose 50% Syringe PHA 08/05/24 Logged 11:30 Admit ADMIT 08/05/24 Transmitted 11:28 Sodium Chloride 0.9% PHA 08/05/24 Logged 11:30 Hydrocodone-Acet PHA 08/05/24 Logged 5/325mg Tab (Jal 11:30 Complete Blood Count LAB 08/06/24 Verified 04:00 Comprehensive LAB 08/06/24 Verified Metabolic Panel 04:00 Condition: Fair LUKE 08/05/24 In Process 11:28 Acetaminophen Tablet PHA 08/05/24 Logged (Tylenol Tablet) 11:30 Clear Liq Diet DIET 08/05/24 Transmitted Lunch Bedrest With Bathroom LUKE 08/05/24 In Process Privileg 11:28 Pantoprazole Tablet PHA 08/05/24 Logged (Protonix Tablet) 22:00 Date of Service: Aug 05, 2024 Billing Provider: PETE SPANN Common Visit Codes: [id number] INP/OBS CARE (HIGH) PETE SPANN [employer]OTE[employer] ENGINEER Aug 05, 2024 11:42
[2024-08-05] MEDS: InsuLIN REG 1unit/0.01ml Soln (100units/ml) SC SCH (11:54)
[2024-08-05] MEDS: ACCU-CHEK COMFORT CURVE STRIP VI SCH (11:54)
[2024-08-05] MEDS: DICYCLOMINE HCL 10 MG CAP PO ONE (11:57)
[2024-08-05 12:00] VITALS: PULSE 84; RESP 16; O2SAT 98
[2024-08-05 12:04] VITALS: RESP 18; O2SAT 98
[2024-08-05] MEDS: SODIUM CHLORIDE 0.9% 1,000 ML IV SCH (12:30)
[2024-08-05] MEDS: ONDANSETRON HCL 4 MG/2 ML VIAL IV PRN (14:49)
[2024-08-05] MEDS: KETOROLAC TROMETH 30 MG/ML 1ML VIAL IV PRN (14:52)
[2024-08-05] MEDS: DICYCLOMINE HCL 10 MG CAP PO PRN (19:16)
[2024-08-05] MEDS: PANTOPRAZOLE 40 MG TAB PO SCH (23:25)
[2024-08-05] MEDS: HYDROcodone-ACET 5/325MG TAB PO PRN (23:36)
[2024-08-05 23:43] VITALS: PULSE 107; RESP 18; O2SAT 98
[2024-08-06] VITALS (7 sets, daily range): BP systolic 122–157; BP diastolic 63–93; PULSE 75–95; RESP 12–20; TEMP 97.6–98.2; O2SAT 93–98
[2024-08-06] MEDS ORDERED: MORPHINE SULFATE INJ 2 MG/ml SYRG IV PRN ×2 (00:45)
[2024-08-06] MEDS: MORPHINE SULFATE INJ 2 MG/ml SYRG IV PRN ×2 (01:04→12:27)
[2024-08-06 06:37] LABS: Basophils # (auto) 0 10 ^3/uL (0-0.2); Basophils % (auto) 0.3 % (0.0-2.0); Eosinophils # (auto) 0 10 ^3/uL (0-0.8); Eosinophils % (auto) 0.1 % (0.0-7.0); Hematocrit 40.7 % (41.0-53.0); Hemoglobin 13.8 g/dL (13.5-17.5); Lymphocytes # (auto) 1.3 10 ^3/uL (0.4-5.4); Lymphocytes % (auto) 11.2 % (10.0-50.0); Mean Corpuscular Hemoglobin 29.2 pg (28.0-32.0); Monocytes # (auto) 0.5 10 ^3/uL (0-1.3); Monocytes % (auto) 4.2 % (0.0-12.0); Neutrophils # (auto) 10.1 10 ^3/uL (1.6-8.6); Neutrophils % (auto) 84.2 % (37.0-80.0); Nucleated Red Blood Cells % 0.1 %; Platelet Count (auto) 292 10^3/uL (140-450); Red Blood Cells 4.73 10^6/uL (4.5-5.90); Red Cell Distribution Width 13.1 % (11.8-14.3)
[2024-08-06 08:49] LABS: Alanine Aminotransferase 20 U/L (7-40); Albumin 4.2 g/dL (3.2-4.8); Alkaline Phosphatase 94 U/L (46-116); Anion Gap 8 (5-15); Aspartate Aminotransferase 22 U/L (13-40); BUN/Creatinine Ratio 20.7 (10.0-20.0); Bilirubin, Total 0.9 mg/dL (0.2-1.0); Blood Urea Nitrogen 19 mg/dL (9-23); Carbon Dioxide 26 mmol/L (20-31); Chloride 102 mmol/L (98-107); Magnesium 1.9 mg/dL (1.6-2.6); Potassium 3.5 mmol/L (3.5-5.1); Sodium 136 mmol/L (136-145); Total Protein 7.1 g/dL (5.7-8.2)
[2024-08-06 08:55] LABS: Glucose 198 mg/dL (74-106)
[2024-08-06 09:13] LABS: Lipase 27 U/L (12-53)
[2024-08-06] MEDS: metroNIDAZOLE 500MG/100ML 100 ML IV SCH (09:15)
[2024-08-06] MEDS: SODIUM CHLORIDE 0.9% 1,000 ML IV SCH (09:15)
[2024-08-06] MEDS: SODIUM CHLORIDE 0.9% 1,000 ML IV ONE (09:15)
[2024-08-06] MEDS: INSULIN LANTUS (GLARGINE) 1 /0.01ml (100units/ml) SC SCH (09:24)
--- NOTE | 2024-08-06 10:32 | DVHPNRES ---
Progress Note Date Seen: Aug 06, 2024 Resident Creating Document: THOMAS ADAMS RESIDENT Medical Necessity Reason Pt with a Central, PICC or Fol: No Subjective Review of Systems This is a 44-year-old male patient with PMHx of type 1 diabetes mellitus, DKA, GERD, peptic ulcer disease, hyperlipidemia, hypertension, CKD, gastritis, sliding hiatal hernia, steatosis who presented to the ER with a chief complaint of abdominal pain for the past 2 days. Patient reports dull burning abdominal pain located in epigastric region along with at least 15 episodes of vomiting which was nonbloody. Patient denies fever, chills, diarrhea, constipation. During my H and P, patient is holding his abdomen in pain. He also reports that the rash erupted on 08/01 on his back which is not itchy. He denies any recent travel history or sick contacts. Patient reports that he has had this pain before in the past and he likely had pancreatitis but he is not sure of. He denies drinking or illicit drug use. Past medical history: See HPI Past surgical history: Cervical and lumbar spine surgery Social history: Denies drinking or illicit drug use Home medications: Lantus 80 units HS, pantoprazole 40 mg daily, insulin lispro Patient seen and examined at bedside. Reports diffuse abdominal epigastric pain, abdomen is diffusely tender but not rigid and soft. Vomitus is orange dark brown in color. CT abdomen showed Minimal wall thickening of the descending colon may reflect mild colitis. Objective vital signs Vital Sign Date Time Temp Pulse Resp B/P (MAP) Pulse Ox O2 Delivery O2 Flow Rate FiO2 08/06/24 06:09 97 17 138/62 08/06/24 05:00 98.2 98 98.2 08/05/24 23:43 Room Air* 0 21 Total Intake and Output 08/05/24 08/05/24 08/06/24 15:00 23:00 07:00 Intake Total 1150 ml 225 ml 1350 ml Balance 1150 ml 225 ml 1350 ml medications Current Medications Medications Dose Ordered Sig/Adina Route Start Time Stop Time Status Last Admin Dose Admin Ondansetron HCl 4 mg Q6HPRN PRN IV 08/05/24 11:30 08/06/24 08:20 4 MG Diagnostic Test (Pha) 1 strip ACHS 08/05/24 11:30 08/06/24 06:29 1 STRIP Dextrose 50 ml UD PRN IV 08/05/24 11:30 Acetaminophen/ Hydrocodone Bitart 1 tab Q4HP PRN PO 08/05/24 11:30 08/06/24 09:22 1 TAB Acetaminophen 650 mg Q6HP PRN PO 08/05/24 11:30 Pantoprazole Sodium 40 mg BID PO 08/05/24 22:00 08/06/24 09:21 40 MG Dicyclomine HCl 20 mg TID PRN PO 08/05/24 18:45 08/05/24 19:16 20 MG Morphine Sulfate 2 mg Q4HPRN PRN IV 08/06/24 00:45 08/06/24 05:39 2 MG Insulin Human Regular Q6HR SC 08/06/24 12:00 Insulin Glargine 30 units DAILY@1000 SC 08/06/24 10:00 08/06/24 09:24 30 UNITS Sodium Chloride 1,000 ml @ 120 mls/hr Q8H20M IV 08/06/24 09:15 Ceftriaxone Sodium 50 ml @ 100 mls/hr DAILY@09 IV 08/07/24 09:00 Metronidazole 100 ml @ 100 mls/hr Q8HR IV 08/06/24 09:15 Examination Young male lying in bed, in no acute distress General: Well-built, afebrile, palor, mucosae are moist Cardiovascular: Regular S1 and S2. No murmurs, gallops or rubs. No JVD elevation. No pedal edema Respiratory: Normal B/L air entry on room air. Clear lung sounds on auscultation Abdomen: Soft, diffuse abdominal tenderness, nondistended, normoactive bowel sounds, no rebound tenderness, no organomegaly, no masses Genitourinary: Deferred MSK/skin: Mobilizes 4 limbs. Skin is dry and warm. Petechial rash in the back. Neurological: No motor, no sensitive deficits, normal speech. Pupils are isocoric and reactive. Psych/Mental Status: A/Ox4 laboratory and microbiology Laboratory Tests 08/06/24 08:05 08/06/24 05:52 Test 08/06/24 08:05 Range/Units Serum Glucose 198 #H 74-106 mg/dL Labs and/or images reviewed: Labs reviewed by me, Image(s) reviewed by me Problem List/Assessment/Plan Problem List/Assessment/Plan Acute gastroenteritis in the setting of gastritis versus viral etiology Intractable nausea and vomiting Descending colon colitis IV ceftriaxone and metronidazole starting 08/06 CT abdomen/pelvis without contrast shows Minimal wall thickening of the descending colon may reflect mild colitis. Liver ultrasound. Lipase 27 IV NS at 120 mL/hour Clear liquid diet Gastritis and 1 cm sliding hiatal hernia EGD completed 02/10 shows above Pantoprazole 40 mg IV daily Uncontrolled Diabetes mellitus type 1-hemoglobin A1c 11.4 on 06/13 Moderate sliding scale and insulin 40 units daily Anion gap 12 Beta hydroxy acid, Serum osmolality pending RYNE likely VMN, resolved Creatinine 1.34 on arrival, now 0.9 Received IV fluid Transaminitis secondary to probable ROQUE Ultrasound liver pending Diet, clear liquid Plan discussed with patient in which all questions were answered Goals of care discussed with patient for more than 22 minutes, full code status Case discussed with Dr. Pedraza. Follow up with MARIAN PRATER. Plan discussed with: Patient My Orders My Orders Orders - THOMAS ADAMS RESIDENT Procedure Category Date Status Time Osmolality, Serum LAB 08/06/24 Logged 07:37 Beta-Hydroxybutyrate LAB 08/06/24 Logged 07:37 Drug Screen LAB 08/06/24 Logged 07:37 PTPTT LAB 08/06/24 Logged 07:37 Thyroid Stimulating LAB 08/06/24 Logged Hormone 07:37 Urinalysis LAB 08/06/24 Logged 07:37 Vitamin B12 LAB 08/06/24 Logged 07:37 Vitamin D, 25-Hydroxy LAB 08/06/24 Logged 07:37 LIVER US 08/06/24 Logged 07:37 Insulin R (Human) PHA 08/06/24 In Process (Insulin R) 12:00 Insulin Lantus PHA 08/06/24 In Process (Glargine) (Lantus) 10:00 Npo (Nothing By DIET 08/06/24 Transmitted Mouth) Diet Breakfast Triglycerides LAB 08/06/24 Logged 09:08 Ct Ab Pel Wo Con-No CT 08/06/24 Taken Oral Or Iv 09:05 Sodium Chloride 0.9% PHA 08/06/24 In Process 09:15 Lactic Acid W/ Reflex LAB 08/06/24 Logged Order 09:09 Blood Culture SOFY 08/06/24 Logged 09:09 Stool Bacterial SOFY 08/06/24 Logged Culture 09:09 Ceftriaxone 1gm/50ml PHA 08/07/24 In Process D5w (Rocephin) 09:00 Metronidazole PHA 08/06/24 In Process 500mg/100ml (Flagyl 09:15 Covid19 Antigen [place] LAB 08/06/24 Logged Rapid Influenza A&B LAB 08/06/24 Logged 09:16 Date of Service: Aug 06, 2024 Billing Provider: HEIDY PEDRAZA DO Common Visit Codes: [id number] INP/OBS CARE(HIGH) THOMAS ADAMS RESIDENT Aug 06, 2024 10:32 HEIDY PEDRAZA DO Aug 08, 2024 19:44
--- NOTE | 2024-08-06 10:42 | DVH ---
Exam: CT CT AB PEL WO CON-NO ORAL OR IV History: abd pain, and epigastric tenderness Comparison Study: CT CT AB PEL WITH ORAL CON ONLY on DOS: 05/12/24, CT CT AB PEL WO CON-NO ORAL OR IV on DOS: 05/09/24, CT CT AB PEL WO CON-NO ORAL OR IV on DOS: 04/14/24, CT CT AB PEL WO CON-NO ORAL OR I V on DOS: 02/01/24, CT CT AB PEL WO CON-NO ORAL OR IV on DOS: 01/18/24 Technique: Multidetector spiral CT of the abdomen was performed from lung bases to pubic symphysis. Imaging was performed without IV contrast. Axial, coronal and sagittal multiplanar reformats were ob tained from the axial data set by the technologist. Radiation Dose : 1. Abdomen/Pelvis: CTDIvol 17.3 mGy, DLP 1046.41 mGy*cm. Findings: Evaluation of solid organs is limited due to lack of intravenous contrast use. Lung Bases: No acute or significant lung base finding. Normal heart size. No pleural or pericardial effusion. Liver: The liver is normal in size. No focal lesions. Gallbladder and Biliary Tree: Unremarkable Spleen: Unremarkable Pancreas: The pancreas is grossly normal in appearance. Adrenal Glands: Unremarkable Kidneys: Kidneys are grossly normal without calculi or hydronephrosis. Bladder: Grossly unremarkable for degree of distention. Bowel: The stomach is grossly normal in appearance. Minimal wall thickening of the descending colon m ay reflect mild colitis. The appendix is not visualized; however, no secondary findings of acute david endicitis identified. Ascites: Absent Lymphadenopathy: No mesenteric, retroperitoneal or periportal lymphadenopathy. Abdominal Wall and Mesentery: Unremarkable. Vasculature: The visualized abdominal aorta is normal in size and caliber. Evaluation of abdominal a nd pelvic vessels is limited due to lack of intravenous contrast. Pelvic Organs: Unremarkable Musculoskeletal: No aggressive focal bony lesions, acute fractures or dislocation. IMPRESSION: 1. Minimal wall thickening of the descending colon may reflect mild colitis. Radiation optimization: All CT scans at this facility use at least one of these dose optimization charlene hniques: automated exposure control mA and/or kV adjustment per patient size (includes targeted exam s where dose is matched to clinical indication) or iterative reconstruction.
[2024-08-06] MEDS: InsuLIN REG 1unit/0.01ml Soln (100units/ml) SC SCH (12:00)
[2024-08-06 15:06] LABS: INR 1.04 (0.9-1.15); Partial Thromboplastin Time 26.6 SEC (24.5-34.5)
--- NOTE | 2024-08-06 15:13 | DVHTSRES ---
Transfer Summary Transfer Summary Resident Creating Document: THOMAS ADAMS RESIDENT Date of Admission Aug 05, 2024 at 11:28 Date of Transfer: Aug 06, 2024 Transfer Diagnosis Acute gastroenteritis in the setting of gastritis versus viral etiology Intractable nausea and vomiting Descending colon colitis Uncontrolled Diabetes mellitus type 1-hemoglobin A1c 11.4 on 06/13 Brief Hx & Hospital Course: This is a 44-year-old male patient with PMHx of type 1 diabetes mellitus, DKA, GERD, peptic ulcer disease, hyperlipidemia, hypertension, CKD, gastritis, sliding hiatal hernia, steatosis who presented to the ER with a chief complaint of abdominal pain for the past 2 days. Patient reports dull burning abdominal pain located in epigastric region along with at least 15 episodes of vomiting which was nonbloody. Patient denies fever, chills, diarrhea, constipation. During my H and P, patient is holding his abdomen in pain. He also reports that the rash erupted on 08/01 on his back which is not itchy. He denies any recent travel history or sick contacts. Patient reports that he has had this pain before in the past and he likely had pancreatitis but he is not sure of. He denies drinking or illicit drug use. IV ceftriaxone and metronidazole starting 08/06 CT abdomen/pelvis without contrast shows Minimal wall thickening of the descending colon may reflect mild colitis. Pantoprazole 40 mg daily IV Liver ultrasound pending. Lipase 27 IV NS at 120 mL/hour Clear liquid diet Transfer Status Stable THOMAS ADAMS RESIDENT Aug 06, 2024 15:13 HEIDY PEDRAZA DO Aug 08, 2024 19:44
--- NOTE | 2024-08-06 15:34 | DVH ---
INDICATION: ruq pain, hx of cholelithiasis TECHNIQUE: Multiple real-time sonographic images were obtained of the right upper quadrant. COMPARISON: US ABDOMEN LIMITED on DOS: 01/31/24, ABDOMEN LIMITED on DOS: 01/15/22, ABDL on DOS: 01/15/22 FINDINGS: The liver demonstrates heterogeneous echotexture without focal mass lesions. The liver ad sures 13.3 cm. There is no intrahepatic or extrahepatic ductal dilatation. The common duct was not visualized. The gallbladder is without evidence of stone or sludge. The gallbladder wall measures 0.2 cm and is within normal limits. The right kidney measures 10.7 cm. The right kidney is normal in contour, size, and shape. The echo genicity is normal. There is no hydronephrosis. The pancreas is not well visualized due to overlying bowel gas. IMPRESSION: 1. No evidence of cholelithiasis or cholecystitis.
[2024-08-06] MEDS: POTASSIUM EFFERVESENT TAB 25 MEQ PO ONE (17:19)
[2024-08-06 17:54] LABS: Urine Bacteria None Seen /hpf (None Seen)
[2024-08-06 18:14] LABS: Urine Blood Negative /uL (Negative); Urine Clarity Clear (Clear); Urine Color Yellow (Yellow); Urine Mucus FEW (None Seen); Urine Protein, UAD TRACE (Negative); Urine Specific Gravity 1.026 (1.001-1.035); Urine Urobilinogen Normal (Negative); Urine WBC 2 /hpf (0 - 3); Urine pH 6.5 (5.0-9.0)
[2024-08-06 18:17] LABS: Amphetamine Screen, Urine Neg (NEGATIVE); Barbiturate Scree,Urine Neg (NEGATIVE); Benzodiazephine Screen, Urine Pos (NEGATIVE); Cannabinoid Screen, Urine Pos (NEGATIVE); Cocaine Screen, Urine Neg (NEGATIVE); Opiate Scree,Urine Pos (NEGATIVE); Phencyclidine Screen, Urine Neg (NEGATIVE)
[2024-08-07] VITALS (7 sets, daily range): BP systolic 120–149; BP diastolic 80–90; PULSE 74–93; RESP 13–18; TEMP 98.1–99.7; O2SAT 96–100
[2024-08-07 07:36] LABS: Anion Gap 7 (5-15); Carbon Dioxide 29 mmol/L (20-31); Chloride 105 mmol/L (98-107); Potassium 4.3 mmol/L (3.5-5.1); Sodium 141 mmol/L (136-145)
[2024-08-07 07:37] LABS: Calcium 9.4 mg/dL (8.7-10.4)
[2024-08-07 07:39] LABS: COVID19 ANTIGEN SOFIA FIA NEGATIVE (NEGATIVE)
[2024-08-07 07:42] LABS: BUN/Creatinine Ratio 14.6 (10.0-20.0); Blood Urea Nitrogen 13 mg/dL (9-23); Glucose 119 mg/dL (74-106)
[2024-08-07 07:44] LABS: Rapid Influenza A Negative (Negative); Rapid Influenza B Negative (Negative)
[2024-08-07 08:20] LABS: Basophils # (auto) 0.1 10 ^3/uL (0-0.2); Basophils % (auto) 0.7 % (0.0-2.0); Eosinophils # (auto) 0.1 10 ^3/uL (0-0.8); Eosinophils % (auto) 0.7 % (0.0-7.0); Hematocrit 41.9 % (41.0-53.0); Hemoglobin 14.2 g/dL (13.5-17.5); Lymphocytes # (auto) 2.3 10 ^3/uL (0.4-5.4); Lymphocytes % (auto) 23.9 % (10.0-50.0); Mean Corpuscular Hgb Conc. 33.9 g/dL (32.0-36.0); Mean Corpuscular Volume 85.5 fL (80.0-100.0); Monocytes # (auto) 0.7 10 ^3/uL (0-1.3); Monocytes % (auto) 7.2 % (0.0-12.0); Neutrophils # (auto) 6.4 10 ^3/uL (1.6-8.6); Neutrophils % (auto) 67.5 % (37.0-80.0); Nucleated Red Blood Cells % 0.1 %; Platelet Count (auto) 336 10^3/uL (140-450); Red Blood Cells 4.89 10^6/uL (4.5-5.90); Red Cell Distribution Width 13.2 % (11.8-14.3); White Blood Cell 9.5 10^3/uL (4.4-10.8)
[2024-08-07] MEDS: cefTRIAXone 1GM/50ML D5W 50 ML IV SCH (09:00)
[2024-08-07] MEDS: PANTOPRAZOLE 40 MG TAB PO SCH (09:01)
[2024-08-07] MEDS: SUCRALFATE 1 GM/10 ML ORAL SUSP PO SCH (09:44)
--- NOTE | 2024-08-07 17:26 | DVHPNRES ---
Progress Note Date Seen: Aug 07, 2024 Resident Creating Document: KEITH WAGNERCLAUDETTE RESIDENT Medical Necessity Reason Pt with a Central, PICC or Fol: No Subjective Review of Systems This is a 44-year-old male patient with PMHx of type 1 diabetes mellitus, DKA, GERD, peptic ulcer disease, hyperlipidemia, hypertension, CKD, gastritis, sliding hiatal hernia, steatosis who presented to the ER with a chief complaint of abdominal pain for the past 2 days. Patient reports dull burning abdominal pain located in epigastric region along with at least 15 episodes of vomiting which was nonbloody. Patient denies fever, chills, diarrhea, constipation. During my H and P, patient is holding his abdomen in pain. He also reports that the rash erupted on 08/01 on his back which is not itchy. He denies any recent travel history or sick contacts. Patient reports that he has had this pain before in the past and he likely had pancreatitis but he is not sure of. He denies drinking or illicit drug use. Past medical history: See HPI Past surgical history: Cervical and lumbar spine surgery Social history: Denies drinking or illicit drug use Home medications: Lantus 80 units HS, pantoprazole 40 mg daily, insulin lispro with meals Review of systems Patient seen and examined at the bedside. Patient alert and oriented to time, place and person. Patient reports diffuse mild abdominal pain more in the epigastric in the right and the left upper quadrants. Patient does not report nausea, vomiting, diarrhea, constipation. Patient reports that his abdominal pain has improved since yesterday Objective vital signs Vital Sign Date Time Temp Pulse Resp B/P (MAP) Pulse Ox O2 Delivery O2 Flow Rate FiO2 08/07/24 13:00 98.6 76 17 149/90 (109) 99 98.6 08/07/24 07:57 Room Air* 0 21 Total Intake and Output 08/06/24 08/06/24 08/07/24 15:00 23:00 07:00 Intake Total 1000 ml 950 ml 1450 ml Output Total 0 ml Balance 1000 ml 950 ml 1450 ml medications Current Medications Medications Dose Ordered Sig/Adina Route Start Time Stop Time Status Last Admin Dose Admin Ondansetron HCl 4 mg Q6HPRN PRN IV 08/05/24 11:30 08/07/24 11:21 4 MG Diagnostic Test (Pha) 1 strip ACHS 08/05/24 11:30 08/07/24 16:45 1 STRIP Dextrose 50 ml UD PRN IV 08/05/24 11:30 Acetaminophen/ Hydrocodone Bitart 1 tab Q4HP PRN PO 08/05/24 11:30 08/07/24 05:40 1 TAB Acetaminophen 650 mg Q6HP PRN PO 08/05/24 11:30 Dicyclomine HCl 20 mg TID PRN PO 08/05/24 18:45 08/07/24 16:35 20 MG Insulin Human Regular Q6HR SC 08/06/24 12:00 08/07/24 11:26 2 UNITS Insulin Glargine 30 units DAILY@1000 SC 08/06/24 10:00 08/07/24 09:10 30 UNITS Ceftriaxone Sodium 50 ml @ 100 mls/hr DAILY@09 IV 08/07/24 09:00 08/07/24 09:00 100 MLS/HR Metronidazole 100 ml @ 100 mls/hr Q8HR IV 08/06/24 09:15 08/07/24 13:22 100 MLS/HR Morphine Sulfate 1 mg Q4HPRN PRN IV 08/06/24 11:00 08/07/24 10:45 1 MG Pantoprazole Sodium 40 mg DAILY PO 08/07/24 10:00 08/07/24 09:01 40 MG Sucralfate 1 gm BID@0600,2200 PO 08/07/24 09:30 08/07/24 09:44 1 GM Metoclopramide HCl 5 mg BID PO 08/07/24 22:00 Examination Physical Examination Gen - no pallor, no icterus, no cyanosis, no clubbing, no LAD, no edema . Skin - Patients skin is warm and dry.. HEENT - normocephalic, atraumatic, moist mucous membranes, pupils are reactive and isocoric Neck - full ROM, no LAD, no JVD. Pulmonary - B/L vesicular breath sounds. no crackles , no wheezing. cardiovascular - normal S1,S2 heard. no murmurs heard. peripheral pulses normal radial 2+, pedal 2+. capillary refill normal <2 secs. GI - soft abdomen with mild diffuse tenderness to palpation more in the epigastrium and radiating down to the left and the right iliac fossa . no hepatospleenomegaly. Bowel sounds + Neurological - Patient is A/O X 3 . Bilateral upper extremity strength 5/5, bilateral lower extremity strength 5/5, no facial droop, normal speech, no tremor, no sensory deficiets. laboratory and microbiology Laboratory Tests 08/07/24 06:00 Test 08/07/24 06:00 Range/Units Serum Glucose 119 H 74-106 mg/dL Microbiology Date/Time Source Procedure Growth Status 08/06/24 10:20 Blood Blood Culture - Preliminary NO GROWTH AFTER 24 HOURS OF INCUBATION. Resulted Problem List/Assessment/Plan Problem List/Assessment/Plan Assessment and plan Chronic gastritis with GERD and sliding hiatal hernia Intractable nausea and vomiting and abdominal pain Descending colon colitis IV ceftriaxone and metronidazole starting 08/06 CT abdomen/pelvis without contrast shows Minimal wall thickening of the descending colon may reflect mild colitis. Liver ultrasound shows no evidence of cholelithiasis or cholecystitis EGD completed 02/10 shows gastritis involving the antrum and body of stomach with some superficial erosions, 1 cm sliding-type hiatal hernia Lipase 27 Diet advanced to full liquid diet on 08/07 Patient on pantoprazole 40 mg p.o. daily and sucralfate 1 g p.o. b.i.d. Uncontrolled Diabetes mellitus type 1-hemoglobin A1c 11.4 on 06/13 Moderate sliding scale and insulin Lantus 30 units daily Anion gap 12 Beta hydroxybutyrate within normal limits, Serum osmolality within normal limits ?gastroparesis Patient is started on metoclopramide 5 mg b.i.d. p.o. RYNE likely VMN, resolved Creatinine 1.34 on admission, now 0.89 Received IV fluid Goals of care discussed with patient for more than 25 minutes, full code Case discussed with Dr. Viramontes. Plan discussed with: Patient My Orders My Orders Orders - CHRIS WAGNER Procedure Category Date Status Time Sucralfate Susp PHA 08/07/24 In Process (Carafate Susp) 09:30 Full Liq Diet DIET 08/07/24 Transmitted Lunch Metoclopramide Tablet PHA 08/07/24 In Process (Reglan Tablet) 22:00 Date of Service: Aug 07, 2024 Billing Provider: RAFAEL VARGHESE MD Common Visit Codes: [id number] INP/OBS CARE(HIGH) CHRIS WAGNER RESIDENT Aug 07, 2024 17:26 RAFAEL VARGHESE MD Aug 09, 2024 23:02
[2024-08-07] MEDS: METOCLOPRAMIDE HCL 10 MG TAB PO SCH (21:18)
[2024-08-08 01:00] VITALS: BP 130/82; PULSE 71; RESP 18; TEMP 98.3; O2SAT 97
[2024-08-08 05:00] VITALS: BP 141/86; PULSE 93; RESP 18; TEMP 97.9; O2SAT 95
[2024-08-08 07:00] LABS: Chloride 105 mmol/L (98-107); Sodium 139 mmol/L (136-145)
[2024-08-08 07:01] LABS: Basophils # (auto) 0 10 ^3/uL (0-0.2); Basophils % (auto) 0.3 % (0.0-2.0); Eosinophils # (auto) 0.1 10 ^3/uL (0-0.8); Eosinophils % (auto) 0.7 % (0.0-7.0); Hematocrit 41.7 % (41.0-53.0); Hemoglobin 14.4 g/dL (13.5-17.5); Lymphocytes # (auto) 1.5 10 ^3/uL (0.4-5.4); Mean Corpuscular Hemoglobin 29.3 pg (28.0-32.0); Mean Corpuscular Hgb Conc. 34.5 g/dL (32.0-36.0); Mean Corpuscular Volume 84.9 fL (80.0-100.0); Monocytes # (auto) 0.9 10 ^3/uL (0-1.3); Monocytes % (auto) 9.7 % (0.0-12.0); Neutrophils % (auto) 73.3 % (37.0-80.0); Nucleated Red Blood Cells % 0.2 %; Platelet Count (auto) 303 10^3/uL (140-450); Red Blood Cells 4.91 10^6/uL (4.5-5.90); Red Cell Distribution Width 13.3 % (11.8-14.3); White Blood Cell 9.5 10^3/uL (4.4-10.8)
[2024-08-08 07:02] LABS: Anion Gap 7 (5-15); Calcium 9.2 mg/dL (8.7-10.4); Carbon Dioxide 27 mmol/L (20-31)
[2024-08-08 07:07] LABS: BUN/Creatinine Ratio 6.2 (10.0-20.0); Blood Urea Nitrogen < 5 mg/dL (9-23); Glucose 92 mg/dL (74-106)
[2024-08-08 07:21] LABS: Free T3 3.82 pg/mL (2.3-4.2)
[2024-08-08 07:22] LABS: Free T4 (Free Thyroxine) 1.35 ng/dL (0.89-1.76)
[2024-08-08 09:00] VITALS: BP 133/72; PULSE 81; RESP 17; TEMP 98.5; O2SAT 98
[2024-08-08] MEDS: POTASSIUM CHL 20 Meq TABLET PO ONE (09:41)
[2024-08-08 10:00] VITALS: BP 136/68; PULSE 86; RESP 18
[2024-08-08] MEDS ORDERED: HYDR-4798 PO (11:37)
[2024-08-08] MEDS ORDERED: ZOFR4T PO (12:39)
[2024-08-08] MEDS ORDERED: METO5TAB67 PO (12:39)
[2024-08-08] MEDS ORDERED: SUCR1SUS26 PO (12:39)
[2024-08-08] MEDS ORDERED: PANT40T PO (12:39)
[2024-08-08] MEDS ORDERED: CIPR-173 PO (12:39)
[2024-08-08] MEDS ORDERED: MET500T PO (12:39)
--- NOTE | 2024-08-08 18:54 | DVHDSRES ---
Discharge Summary Date of Admission Resident Creating Document: CHRIS WAGNER RESIDENT Aug 05, 2024 at 11:28 Date of Discharge: Aug 06, 2024 Admitting Diagnosis Abdominal pain Type 2 DM-uncontrolled GERD Wounds: no wounds Labs/Diagnostic Data: Laboratory Results Test 08/08/24 09:28 08/08/24 05:54 08/07/24 05:51 08/06/24 17:40 POC Glucose 161 mg/dl (70-106) White Blood Count 9.5 10^3/uL (4.4-10.8) Red Blood Count 4.91 10^6/uL (4.5-5.90) Hemoglobin 14.4 g/dL (13.5-17.5) Hematocrit 41.7 % (41.0-53.0) Mean Corpuscular Volume 84.9 fL (80.0-100.0) Mean Corpuscular Hemoglobin 29.3 pg (28.0-32.0) Mean Corpuscular Hemoglobin Concent 34.5 g/dL (32.0-36.0) Red Cell Distribution Width 13.3 % (11.8-14.3) Platelet Count 303 10^3/uL (140-450) Mean Platelet Volume 7.0 fL (6.9-10.8) Neutrophils (%) (Auto) 73.3 % (37.0-80.0) Lymphocytes (%) (Auto) 16.0 % (10.0-50.0) Monocytes (%) (Auto) 9.7 % (0.0-12.0) Eosinophils (%) (Auto) 0.7 % (0.0-7.0) Basophils (%) (Auto) 0.3 % (0.0-2.0) Neutrophils # (Auto) 7.0 10 ^3/uL (1.6-8.6) Lymphocytes # (Auto) 1.5 10 ^3/uL (0.4-5.4) Monocytes # (Auto) 0.9 10 ^3/uL (0-1.3) Eosinophils # (Auto) 0.1 10 ^3/uL (0-0.8) Basophils # (Auto) 0 10 ^3/uL (0-0.2) Nucleated Red Blood Cells 0.2 % Sodium Level 139 mmol/L (136-145) Potassium Level 3.0 mmol/L (3.5-5.1) Chloride Level 105 mmol/L (98-107) Carbon Dioxide Level 27 mmol/L (20-31) Anion Gap 7 (5-15) Blood Urea Nitrogen < 5 mg/dL (9-23) Creatinine 0.81 mg/dL (0.700-1.30) Glomerular Filtration Rate Calc 110 mL/min (>90) BUN/Creatinine Ratio 6.2 (10.0-20.0) Serum Glucose 92 mg/dL (74-106) Calcium Level 9.2 mg/dL (8.7-10.4) Free Thyroxine (T4) Calculated 1.35 ng/dL (0.89-1.76) Free Triiodothyronine (T3) pg/mL 3.82 pg/mL (2.3-4.2) Influenza Type A Antigen Negative (Negative) Influenza Type B Antigen Negative (Negative) SARS-CoV-2 Antigen (Rapid) Negative (NEGATIVE) Urine Color Yellow (Yellow) Urine Clarity Clear (Clear) Urine pH 6.5 (5.0-9.0) Urine Specific [place] 1.026 (1.001-1.035) Urine Protein Trace (Negative) Urine Ketones 1+ (Negative) Urine Blood Negative /uL (Negative) Urine Nitrite Negative (Negative) Urine Bilirubin Negative (Negative) Urine Urobilinogen Normal mg/dL (Negative) Urine Leukocyte Esterase Negative /uL (Negative) Urine RBC 8 /hpf (0 - 3) Urine WBC 2 /hpf (0 - 3) Urine Squamous Epithelial Cells Few /hpf (<5) Urine Bacteria None seen /hpf (None Seen) Urine Mucus Few (None Seen) Urine Glucose 4+ mg/dL (Normal) Urine Opiates Screen Pos (NEGATIVE) Urine Fentanyl Screen Neg (NEGATIVE) Urine Barbiturates Screen Neg (NEGATIVE) Urine Phencyclidine Screen Neg (NEGATIVE) Urine Amphetamines Screen Neg (NEGATIVE) Urine Benzodiazepines Screen Pos (NEGATIVE) Urine Cocaine Screen Neg (NEGATIVE) Urine Cannabinoids Screen Pos (NEGATIVE) Test 08/06/24 14:38 08/06/24 10:20 08/06/24 08:05 Prothrombin Time 11.0 sec (9.3-11.8) Prothrombin Time INR 1.04 (0.9-1.15) Activated Partial Thromboplast Time 26.6 SEC (24.5-34.5) Serum Osmolality 291 mOsm/kg (278-298) Triglycerides Level 145 mg/dL (< 150) Vitamin B12 Level 421 pg/mL (211-911) Vitamin D 25-Hydroxy 20.6 ng/mL (30.0-100) Beta-Hydroxybutyric Acid 0.331 mmol/L (< 0.4) Thyroid Stimulating Hormone (TSH) 0.27 uIU/mL (0.55-4.78) Lactic Acid Level 1.7 mmol/L (0.4-2.0) Magnesium Level 1.9 mg/dL (1.6-2.6) Total Bilirubin 0.9 mg/dL (0.2-1.0) Aspartate Amino Transferase (AST) 22 U/L (13-40) Alanine Aminotransferase (ALT) 20 U/L (7-40) Alkaline Phosphatase 94 U/L (46-116) Total Protein 7.1 g/dL (5.7-8.2) Albumin 4.2 g/dL (3.2-4.8) Lipase 27 U/L (12-53) Other Laboratory Tests 08/08/24 05:54 Brief Hx & Hospital Course: Patient a 44-year-old male with a past medical history of type 1 diabetes mellitus, DKA, GERD peptic ulcer disease, hyperlipidemia, hypertension, CKD, gastritis, sliding hiatal hernia presented to the ER with a chief complaint of worsening abdominal pain with the past 2 days. Patient reports that he has been having abdominal pain [id number] every day for the last year in the morning between 2-5 a.m. which wakes him up from sleep. Patient reports that he tries to drink heart fluids and eat food which helps in controlling the pain. Patient had endoscopy done in February 07, 2024 which showed gastritis involving the antrum and body of the stomach with some superficial erosions and 1 cm sliding- type hiatal hernia with irregular squamocolumnar junction and was prescribed Protonix 40 mg b.i.d. p.o. and Carafate 1 g p.o. [address] abdomen pelvis was done during the current admission which showed minimal wall thickening of the descending colon which may reflect mild colitis. Liver ultrasound showed no cholelithiasis or cholecystitis. Patient was started on IV antibiotics with metronidazole and ceftriaxone and started on Protonix 40 mg p.o. daily and Carafate 1 g p.o. b.i.d. patient reported improvement in his symptoms. Patient has a history of type 1 diabetes mellitus and suspecting gastroparesis patient was started on Reglan 5 mg p.o. b.i.d. after which patient reported improvement in his symptoms. Patient was discharged in stable condition is advised to avoid NSAIDs, smoking, alcohol, spicy foods and be compliant with the medications and continue full liquid diet for the next 10 days and follow up in the discharge clinic in 1 week. Review of systems Patient is seen and examined at the bedside. Patient is alert and oriented to time, place and person. Patient reports significant improvement in his symptoms of abdominal pain. Patient is tolerating full liquid diet well without nausea, vomiting, change in bowel movement. Physical Examination Gen - no pallor, no icterus, no cyanosis, no clubbing, no LAD, no edema . Skin - Patients skin is warm and dry. HEENT - normocephalic, atraumatic, moist mucous membranes, pupils are reactive and isocoric Neck - full ROM, no LAD, no JVD. Pulmonary - B/L vesicular breath sounds. no crackles , no wheezing. cardiovascular - normal S1,S2 heard. no murmurs heard. peripheral pulses normal radial 2+, pedal 2+. capillary refill normal <2 secs. GI - soft abdomen with mild tenderness to palpation in the left iliac fossa which has improved since yesterday . no hepatospleenomegaly. Bowel sounds + Neurological - Patient is A/O X 3 . Bilateral upper extremity strength 5/5, bilateral lower extremity strength 5/5, no facial droop, normal speech, no tremor, no sensory deficiets. Consults/Reason for consult no consultation Operations or Procedures CT abdomen pelvis without oral or IV contrast showed minimal wall thickening of the descending colon which may reflect mild colitis Condition at Discharge: Good Final Diagnosis/Problems List # Chronic gastritis with GERD and sliding hiatal hernia # Intractable nausea and vomiting and abdominal pain # Descending colon colitis # Uncontrolled Diabetes mellitus type 1-hemoglobin A1c 11.4 # ?gastroparesis # RYNE likely VMN, resolved Discharge Disposition: Home Discharge Instruct/Medications Diet: Regular Diet comment: strictly Full liquid diet for 10 days Avoid Nsaids, spicy foods, alcohol, smoking Activity: No Restrictions, As Tolerated Follow Up/Referral: Follow up in the D/C clinic on wednesday08/15/2024 Medications: Protonix 40mg once daily X 30 days Sucralfate 1gm PO bid X 30 days Zofran 4mg PO PRN Reglan 5mg PO PRN Ciprofloxacin 500mg bid X 5 days Metronidazole 500mg tid X 5 days [place] 10/325 PO prn Discharge Statement: "Patient was advised to return to the ER or call 911 if any headaches, dizziness, shortness of breath, chest pain, abdominal pain, bleeding, fevers, or worsening of medical condition. Patient was counseled about treatment plan, medications, possible side effects, patientverbalized understanding. All questions were answered to the best of my ability. This discharge took greater then 30 minutes in planning, reviewing documentation, counseling the patient, and discussing with other team members." ASSESSMENT ASSESSMENT Assessment # Chronic gastritis with GERD and sliding hiatal hernia # Intractable nausea and vomiting and abdominal pain # Descending colon colitis # Uncontrolled Diabetes mellitus type 1-hemoglobin A1c 11.4 # ?gastroparesis # RYNE likely VMN, resolved Date of Service: Aug 08, 2024 Billing Provider: RAFAEL VARGHESE MD Common Visit Codes: 29144-FTC/OBS DISCH DAY >30min CHRIS WAGNER RESIDENT Aug 08, 2024 18:54 RAFAEL VARGHESE MD Aug 09, 2024 22:47
== END 2024-08-08 12:43 | disposition home or self-care (01) | DRG 48 ==
LOC: EDUNIT# 09:00 → ER 09:00 → EDBD 09:00 → OVERFLOW 11:28 → EAST 11:30
PROVIDERS: ADMIT Student in an Organized Health Care Education/Training Program; ATTEND Emergency Medicine
DX: E10.43 Type 1 diabetes mellitus with diabetic autonomic (poly)neuropathy (principal); N17.0 Acute kidney failure with tubular necrosis; E10.22 Type 1 diabetes mellitus with diabetic chronic kidney disease; K21.9 Gastro-esophageal reflux disease without esophagitis; K29.00 Acute gastritis without bleeding; K31.84 Gastroparesis; K52.9 Noninfective gastroenteritis and colitis, unspecified; I12.9 Hypertensive chronic kidney disease with stage 1 through stage 4 chronic kidney disease, or unspecified chronic kidney disease; N18.9 Chronic kidney disease, unspecified; E78.5 Hyperlipidemia, unspecified; G89.4 Chronic pain syndrome; K29.50 Unspecified chronic gastritis without bleeding; R74.01 Elevation of levels of liver transaminase levels; Z20.822 Contact with and (suspected) exposure to COVID-19; K44.9 Diaphragmatic hernia without obstruction or gangrene; Z53.29 Procedure and treatment not carried out because of patient's decision for other reasons; Z87.11 Personal history of peptic ulcer disease; Z79.891 Long term (current) use of opiate analgesic; Z79.899 Other long term (current) drug therapy; Z79.4 Long term (current) use of insulin
CPT/HCPCS: 36415; 74176; 76705; 80048; 80053; 80307; 81001; 82010; 82306; 82607; 82962; 83605; 83690; 83735; 83930; 84439; 84443; 84478; 84481; 85025; 85610; 85730; 87040; 87426; 87804; 96374; 96375; 99291; G0378; J1815; J1885; J2405; J3490

== ENCOUNTER 2024-09-05 13:22 | Emergency (ER) | payer MEDICAID ==
[~2024-09-05] VITALS: Ht 172.7 cm; Wt 63.6 kg
[~2024-09-05 13:22] MED LIST changes: +CIPR-173 PO; +HYDR-4798 PO; +MET500T PO; +METO5TAB67 PO; +SUCR1SUS26 PO; +ZOFR4T PO
[2024-09-05 13:30] VITALS: BP 154/82; PULSE 101; RESP 16; O2SAT 99
[2024-09-05] MEDS ORDERED: SODIUM CHLORIDE 0.9% 1,000 ML IV ONE (13:30)
[2024-09-05] MEDS ORDERED: ONDANSETRON HCL 4 MG/2 ML VIAL IV ONE (13:30)
--- NOTE | 2024-09-05 13:50 | ED.PDOC ---
History of Present Illness HPI Comments 44 y/o M, with a Hx of DM type I, GERD, HLD, HTN, PUD, RYNE, chronic gastritis, sliding hiatal hernia, descending colon colitis, frequent ED visits, and marijuana use, is [id number] for complaint of hyperglycemia, abdominal pain, nausea, and vomiting, today. Per EMS report, patient endorses having pain with nausea and vomiting for the past 2x days. He reports on calling EMS, due to running out of his [place] medication that he has been taking to manage aforementioned symptoms and can no longer tolerate the pain. On scene, patient was found with a blood glucose of 576, with patient reporting to EMS staff on noncompliance with his insulin, due to concerns of "vomiting it out." He denies having any hematemesis, diarrhea, constipation, fever, chills, polyphagia, polydipsia, polyuria, or other associated symptoms or modifiers at this time. Chief Complaint: Abdominal Pain Time Seen by MD: 13:25 Primary Care Provider: " I DON'T KNOW THE NAME" Reviewed Notes: Nurses Notes, [employer] Notes, Medications, Allergies Allergies: Coded Allergies: NO KNOWN ALLERGIES (Unverified , 09/21/20) Home Meds Active Scripts Sucralfate (CARAFATE SUSP) 1 Gm/10 Ml Ss, 1 GM PO BID@0600,2200 for 14 Days, #10 ML Prov:VEE SPANN RESIDENT 09/09/24 Pantoprazole Sodium Sesquihydr (Pantoprazole Sodium) 40 Mg Tab, 40 MG PO DAILY for 30 Days, #30 TAB 2 Refills Prov:VEE SPANN RESIDENT 09/09/24 Metoclopramide Hcl (Reglan) 5 Mg Tab, 5 MG PO DAILY PRN for 30 Days, #30 TAB Prov:DEBBIE BARRAGAN RESIDENT 08/08/24 Insulin Glargine (Lantus) 100 Unit/Ml Inj, 80 UNIT SC HS for 96 Days, #10 ML 1 Refill Prov:ROGELIO COBB MD 06/12/24 Discontinued Reported Medications Insulin Lispro (Humalog Kwikpen) 100 Unit/Ml Inj, 6 UNIT SC TIDAC for 100 Days, #24 11/11/23 Discontinued Scripts Sucralfate (CARAFATE SUSP) 1 Gm/10 Ml Ss, 1 GM PO BID@0600,2200 for 30 Days, #20 ML 2 Refills Prov:DEBBIE BARRAGAN RESIDENT 08/08/24 Metronidazole (Metronidazole) 500 Mg Tab, 500 MG PO TID for 5 Days, #15 TAB Prov:DEBBIE BARRAGAN RESIDENT 08/08/24 Ondansetron Odt 4MG Tab (ZOFRAN PO) 4 Mg Tb, 4 MG PO DAILY PRN for 30 Days, #30 TAB ODT TAB-DISSOLVE IN MOUTH, THEN SWALLOW Prov:DEBBIE BARRAGAN [facility] 08/08/24 Ciprofloxacin Hcl (Cipro) 500 Mg Tab, 1 TAB PO BID for 5 Days, #10 TAB Prov:DEBBIE BARRAGAN [facility] 08/08/24 Hydrocodone-Acetaminophen (Hydrocodone Bitartrate/AC 10-325 mg) 1 Tab Tab, 1 TAB PO TIDPRN PRN for 5 Days, #15 TAB 0 Refills Prov:RAFAEL VARGHESE MD 08/08/24 Hydrocodone-Acetaminophen (Hydrocodone Bitartrate/AC 5-325 mg) 1 Tab Tab, 1 TAB PO Q12HP PRN, #20 TAB Prov:ROGELIO COBB MD 06/12/24 Pantoprazole Sodium Sesquihydr (Pantoprazole Sodium) 40 Mg Tab, 40 MG PO BID, #60 TAB Prov:NUBIA PRICE MD 12/21/23 Information Source: Patient, Emergency Med Personnel Mode of Arrival: EMS Severity: Moderate Timing: Hours Duration: Since onset Prehospital treatment: 12 Lead EKG, Accucheck, Dry Boss Past Medical History PAST MEDICAL HISTORY: DM (type 1), GERD, High Lipids, HTN, PUD Past Medical History (Other): RYNE, chronic gastritis, sliding hiatal hernia, descending colon colitis Surgical History: Denies all surgeries Family History Family History: Reviewed,noncontributory to illness Social History Smoker: Non-Smoker Alcohol: Occasionally Drugs: Marijuana Lives In: Home Gastrointestinal: reports: abdominal pain, nausea, vomiting Endocrine: reports: others (hyperglycemia ) All Other Systems: Reviewed and Negative (negative unless otherwise stated above or in HPI) Physical Exam General Appearance: No Apparent Distress, Normal HEENT: Normal ENT Inspection, Pharynx Normal, TMs Normal, Other (dry mucous membranes) Neck: Full Range of Motion, Non-Tender, Normal, Normal Inspection Respiratory: Chest Non-Tender, Lungs Clear, No Accessory Muscle Use, No Respiratory Distress, Normal Breath Sounds Cardiovascular: No Edema, No JVD, No Murmur, No Gallop, Normal Peripheral Pulses, Tachycardia Breast Exam: Deferred Gastrointestinal: No Organomegaly, Non Tender, No Pulsatile Mass, Normal Bowel Sounds, Soft Genitalia: Deferred Pelvic: Deferred Rectal: Deferred Extremities: No calf tenderness, Normal capillary refill, Normal inspection, Normal range of motion, Non-tender, No pedal edema Musculoskeletal : Apperance: Normal Neurologic: Alert, hot mill roller II-XII nml as Tested, No Motor Deficits, Normal Affect, Normal Mood, No Sensory Deficits Cerebellar Function: Normal Reflexes: Normal Skin: Dry, Normal Color, Warm Lymphatic: No Adenopathy Was a procedure done? Was a procedure done?: No Differential Dx Considerations may include: DKA, hyperglycemia, medication noncompliant, gastritis, gastroenteritis, viral syndrome, dehydration X-Ray, Labs, Meds, VS Vital Signs Date Time Temp Pulse Resp B/P (MAP) Pulse Ox O2 Delivery O2 Flow Rate FiO2 09/05/24 13:30 98.4 101 16 154/82 (106) 99 Lab Test 09/05/24 13:36 Range/Units White Blood Count 10.6 4.4-10.8 10^3/uL Red Blood Count 5.40 4.5-5.90 10^6/uL Hemoglobin 15.6 13.5-17.5 g/dL Hematocrit 46.2 41.0-53.0 % Mean Corpuscular Volume 85.5 80.0-100.0 fL Mean Corpuscular Hemoglobin 28.8 28.0-32.0 pg Mean Corpuscular Hemoglobin Concent 33.7 32.0-36.0 g/dL Red Cell Distribution Width 13.4 11.8-14.3 % Platelet Count 368 140-450 10^3/uL Mean Platelet Volume 7.7 6.9-10.8 fL Neutrophils (%) (Auto) 80.4 H 37.0-80.0 % Lymphocytes (%) (Auto) 13.7 10.0-50.0 % Monocytes (%) (Auto) 5.4 0.0-12.0 % Eosinophils (%) (Auto) 0.1 0.0-7.0 % Basophils (%) (Auto) 0.4 0.0-2.0 % Neutrophils # (Auto) 8.6 1.6-8.6 10 ^3/uL Lymphocytes # (Auto) 1.5 0.4-5.4 10 ^3/uL Monocytes # (Auto) 0.6 0-1.3 10 ^3/uL Eosinophils # (Auto) 0 0-0.8 10 ^3/uL Basophils # (Auto) 0 0-0.2 10 ^3/uL Nucleated Red Blood Cells 0.0 % Sodium Level 133 L 136-145 mmol/L Potassium Level 4.1 3.5-5.1 mmol/L Chloride Level 95 L 98-107 mmol/L Carbon Dioxide Level 23 20-31 mmol/L Anion Gap 15 5-15 Blood Urea Nitrogen 19 9-23 mg/dL Creatinine 1.57 H 0.700-1.30 mg/dL Glomerular Filtration Rate Calc 55 >90 mL/min BUN/Creatinine Ratio 12.1 10.0-20.0 Serum Glucose 576 *H 74-106 mg/dL Lactic Acid Level 4.8 *H 0.4-2.0 mmol/L Calcium Level 10.5 H 8.7-10.4 mg/dL Time of 1ST Reevaluation: 13:55 Reevaluation 1ST: Unchanged Patient Education/Counseling: Diagnosis, Treatment Family Education/Counseling: No Family Present Additional Information Reviewed patient's previous hospital admission discharge summary on 08/08/24. Interviewed personal: patient, EMT Ordered: UA, lactic acid, BMP, CBC, chest X-ray Departure 1 Departure Time of Disposition: 21:43 (Patient with concern for DKA. Patient was started on fluids and pending labs I watched patient walk out of the er and get into a car and elope. ) Impression: Primary Impression: Uncontrolled diabetes mellitus Qualified Codes: E11.65 - Type 2 diabetes mellitus with hyperglycemia Disposition: 07 LEFT AWOL/ELOPED Condition: Serious Critical Care Note Critical Care Time?: No Stability Stability form required: No Heart Score Heart Score: Heart Score Response (Comments) Value History N/A 0 EKG N/A 0 Age N/A 0 Risk Factors N/A 0 Troponin N/A 0 Total 0 I personally scribed for TASHA GONZALEZ MD ([email or web address]) on 09/05/24 at 13:50. Electronically submitted by Carlos Yu [email or web address]). TASHA GONZALEZ MD Sep 05, 2024 13:50
[2024-09-05 13:51] LABS: Basophils # (auto) 0 10 ^3/uL (0-0.2); Basophils % (auto) 0.4 % (0.0-2.0); Eosinophils # (auto) 0 10 ^3/uL (0-0.8); Eosinophils % (auto) 0.1 % (0.0-7.0); Hematocrit 46.2 % (41.0-53.0); Hemoglobin 15.6 g/dL (13.5-17.5); Lymphocytes # (auto) 1.5 10 ^3/uL (0.4-5.4); Lymphocytes % (auto) 13.7 % (10.0-50.0); Mean Corpuscular Hemoglobin 28.8 pg (28.0-32.0); Mean Corpuscular Hgb Conc. 33.7 g/dL (32.0-36.0); Mean Corpuscular Volume 85.5 fL (80.0-100.0); Monocytes # (auto) 0.6 10 ^3/uL (0-1.3); Monocytes % (auto) 5.4 % (0.0-12.0); Neutrophils # (auto) 8.6 10 ^3/uL (1.6-8.6); Neutrophils % (auto) 80.4 % (37.0-80.0); Platelet Count (auto) 368 10^3/uL (140-450); Red Cell Distribution Width 13.4 % (11.8-14.3); White Blood Cell 10.6 10^3/uL (4.4-10.8)
--- NOTE | 2024-09-05 13:55 | DVH ---
CHEST RADIOGRAPH Indication: SOB Technique: Single frontal view of the chest was obtained Comparison: None FINDINGS: Lines and Tubes: None Lungs: No focal consolidation. Pleura: No effusion.No pneumothorax. Cardiomediastinal contours: Unremarkable Pulmonary vasculature: Within normal limits. Bones: No acute osseous abnormality. IMPRESSION: 1. No acute cardiopulmonary disease. HS:Y
[2024-09-05 14:08] LABS: Potassium 4.1 mmol/L (3.5-5.1)
[2024-09-05 14:09] LABS: Anion Gap 15 (5-15); Carbon Dioxide 23 mmol/L (20-31)
[2024-09-05 14:14] LABS: BUN/Creatinine Ratio 12.1 (10.0-20.0); Blood Urea Nitrogen 19 mg/dL (9-23)
[2024-09-05 14:34] LABS: Chloride 95 mmol/L (98-107); Sodium 133 mmol/L (136-145)
[2024-09-05 14:35] LABS: Calcium 10.5 mg/dL (8.7-10.4)
[2024-09-05 14:43] LABS: Glucose 576 mg/dL (74-106); Lactic Acid w/Reflex 4.8 mmol/L (0.4-2.0)
== END 2024-09-05 15:47 | disposition left against medical advice (07) ==
LOC: ER 13:22 → EDBD 13:22 → ER 15:47
DX: E10.65 Type 1 diabetes mellitus with hyperglycemia (principal); K21.9 Gastro-esophageal reflux disease without esophagitis; E78.5 Hyperlipidemia, unspecified; I10 Essential (primary) hypertension; Z79.4 Long term (current) use of insulin; Z79.899 Other long term (current) drug therapy; Z87.11 Personal history of peptic ulcer disease; Z91.148 Patient's other noncompliance with medication regimen for other reason
CPT/HCPCS: 36415; 71045; 80048; 83605; 85025

== ENCOUNTER 2024-09-07 07:30 | Inpatient (IN) | payer MEDICAID ==
[~2024-09-07] VITALS: Ht 188 cm; Wt 78.4 kg
--- NOTE | 2024-09-07 07:40 | ED.PDOC ---
GI ASSESSMENT HPI Comments 44 year old male ARSI presents to the ED with chief complaint of abdominal pain. Patient reports that he has been experiencing diffuse abdominal pain with associated nausea, vomiting, body aches, and blood in stool for the past 5-6 days. EMS relays that patient was seen in a hospital on Wednesday, but had left due to the wait being too long. EMS states patient denied Zofran on route and patient's BG was noted to be 263, patient took Insulin this morning. Patient denies any fever, chills, hematemesis, diarrhea, chest pain, or dizziness. 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 Notes, Medications, Allergies Allergies: Coded Allergies: NO KNOWN ALLERGIES (Unverified , 09/21/20) Home Meds Active Scripts Sucralfate (CARAFATE SUSP) 1 Gm/10 Ml Ss, 1 GM PO BID@0600,2200 for 30 Days, #20 ML 2 Refills Prov:DEBBIE BARRAGAN [facility] 08/08/24 Pantoprazole Sodium Sesquihydr (Pantoprazole Sodium) 40 Mg Tab, 40 MG PO DAILY for 30 Days, #30 TAB 2 Refills Prov:DEBBIE BARRAGAN [facility] 08/08/24 Metronidazole (Metronidazole) 500 Mg Tab, 500 MG PO TID for 5 Days, #15 TAB Prov:DEBBIE BARRAGAN 08/08/24 Ondansetron Odt 4MG Tab (ZOFRAN PO) 4 Mg Tb, 4 MG PO DAILY PRN for 30 Days, #30 TAB ODT TAB-DISSOLVE IN MOUTH, THEN SWALLOW Prov:DEBBIE BARRAGAN 08/08/24 Metoclopramide Hcl (Reglan) 5 Mg Tab, 5 MG PO DAILY PRN for 30 Days, #30 TAB Prov:DEBBIE BARRAGAN [facility] 08/08/24 Ciprofloxacin Hcl (Cipro) 500 Mg Tab, 1 TAB PO BID for 5 Days, #10 TAB Prov:DEBBIE BARRAGAN 08/08/24 Hydrocodone-Acetaminophen (Hydrocodone Bitartrate/AC 10-325 mg) 1 Tab Tab, 1 TAB PO TIDPRN PRN for 5 Days, #15 TAB 0 Refills Prov:RAFAEL VARGHESE MD 08/08/24 Hydrocodone-Acetaminophen (Hydrocodone Bitartrate/AC 5-325 mg) 1 Tab Tab, 1 TAB PO Q12HP PRN, #20 TAB Prov:ROGELIO COBB MD 06/12/24 Insulin Glargine (Lantus) 100 Unit/Ml Inj, 80 UNIT SC HS for 96 Days, #10 ML 1 Refill Prov:ROGELIO COBB MD 06/12/24 Pantoprazole Sodium Sesquihydr (Pantoprazole Sodium) 40 Mg Tab, 40 MG PO BID, #60 TAB Prov:NUBIA PRICE MD 12/21/23 Reported Medications Insulin Lispro (Humalog Kwikpen) 100 Unit/Ml Inj, 6 UNIT SC TIDAC for 100 Days, #24 11/11/23 Information Source: Patient, Emergency Med Personnel Mode of Arrival: EMS Timing: Days Duration: Since onset Prehospital treatment: None Quality: Aching Vomitus: Watery Stool: Blood Streaked, Watery Severity: Moderate Recent: None Recent Hx of: None Pain Location: Diffuse Modifying Factors: Nothing Associated sign and symptoms: Nausea, Vomiting, Abdominal Pain, Blood in Stool Past Medical History PAST MEDICAL HISTORY: DM, GERD, High Lipids, HTN, PUD Past Medical History (Other): Diverticulitis, Pancreatitis Surgical History: Denies all surgeries Family History Family History: Reviewed,noncontributory to illness Social History Smoker: Non-Smoker Alcohol: Denies ETOH Use Drugs: Marijuana Lives In: Home Constitutional: reports: malaise; denies: chills, diaphoresis, fatigue, fever, sweats, weakness, others EENTM: denies: blurred vision, double vision, ear bleeding, ear discharge, ear drainage, ear pain, ear ringing, eye pain, eye redness, hearing loss, mouth pain, mouth swelling, nasal discharge, nose bleeding, nose congestion, nose pain, photophobia, tearing, throat pain, throat swelling, voice changes, others Respiratory: denies: cough, hemoptysis, orthopnea, SOB at rest, shortness of breath, SOB with excertion, stridor, wheezing, others Cardiovascular: denies: chest pain, dizzy spells, diaphoresis, Dyspnea on exertion, edema, irregular heart beat, left arm pain, lightheadedness, palpitations, PND, syncope, others Gastrointestinal: reports: abdominal pain, blood streaked bowels, nausea, vomiting; denies: abdomen distended, constipated, diarrhea, dysphagia, difficulty swallowing, hematemesis, melena, poor appetite, poor fluid intake, rectal bleeding, rectal pain, others Genitourinary: denies: burning, dysuria, flank pain, frequency, hematuria, incontinence, penile discharge, penile sore, pain, testicle pain, testicle swelling, urgency, others Neurological: denies: dizziness, fainting, headache, left sided numbness, left sided weakness, numbness, paresthesia, pre-existing deficit, right sided numbness, right sided weakness, seizure, speech problems, tingling, tremors, weakness, others Musculoskeletal: denies: back pain, gout, joint pain, joint swelling, muscle pain, muscle stiffness, neck pain, others Integumetry: denies: bruises, change in color, change in hair/nails, dryness, laceration, lesions, lumps, rash, wounds, others Allergic/Immunocompromised: denies: Difficulty Healing, Frequent Infections, Hives, Itching, others Hematologic/Lymphatic: denies: anemia, blood clots, easy bleeding, easy bruising, swollen glands, others Endocrine: denies: excessive hunger, excessive sweating, excessive thirst, excessive urination, flushing, intolerance to cold, intolerance to heat, unexplained weight gain, unexplained weight loss, others Psychiatric: denies: anxiety, bipolar disorder, depression, hopeless, panic disorder, schizophrenia, sleepless, suicidal, others All Other Systems: Reviewed and Negative Physical Exam General Appearance: Moderate Distress, Normal HEENT: Normal ENT Inspection, PERRL/EOMI Neck: Full Range of Motion, Non-Tender, Normal, Normal Inspection Respiratory: Chest Non-Tender, Lungs Clear, No Accessory Muscle Use, No Respiratory Distress, Normal Breath Sounds Cardiovascular: No Edema, No JVD, No Murmur, No Gallop, Normal Peripheral Pulses, Regular Rate/Rhythm Breast Exam: Deferred Gastrointestinal: No Organomegaly, Non Tender, No Pulsatile Mass, Normal Bowel Sounds, Soft Genitalia: Deferred Pelvic: Deferred Rectal: Deferred Extremities: No calf tenderness, Normal capillary refill, Normal inspection, Normal range of motion, Non-tender, No pedal edema Musculoskeletal : Apperance: Normal Neurologic: Alert, risk consulting treasury director II-XII nml as Tested, No Motor Deficits, Normal Affect, Normal Mood, No Sensory Deficits Cerebellar Function: NOT DONE Reflexes: NOT DONE Skin: Dry, Normal Color, Warm Peripheral Pulses: 3+ Radial (R), 3+ Radial (L) Lymphatic: No Adenopathy Was a procedure done? Was a procedure done?: No GI differential Dx Differential Diagnosis: Constipation, Diverticular disease, Esophagitis, Gastritis/PUD, Gastroenteritis X-Ray, Labs, Meds, VS Vital Signs Date Time Temp Pulse Resp B/P (MAP) Pulse Ox O2 Delivery O2 Flow Rate FiO2 09/07/24 08:03 114 20 129/87 (101) 98 09/07/24 08:03 98.7 114 20 129/87 (101) 98 09/07/24 08:03 114 20 98 Room Air Lab Test 09/07/24 07:58 Range/Units White Blood Count 18.9 #H 4.4-10.8 10^3/uL Red Blood Count 5.89 4.5-5.90 10^6/uL Hemoglobin 16.9 13.5-17.5 g/dL Hematocrit 50.2 41.0-53.0 % Mean Corpuscular Volume 85.3 80.0-100.0 fL Mean Corpuscular Hemoglobin 28.7 28.0-32.0 pg Mean Corpuscular Hemoglobin Concent 33.7 32.0-36.0 g/dL Red Cell Distribution Width 13.7 11.8-14.3 % Platelet Count 450 140-450 10^3/uL Mean Platelet Volume 7.5 6.9-10.8 fL Neutrophils (%) (Auto) 81.4 H 37.0-80.0 % Lymphocytes (%) (Auto) 11.3 10.0-50.0 % Monocytes (%) (Auto) 6.9 0.0-12.0 % Eosinophils (%) (Auto) 0.0 0.0-7.0 % Basophils (%) (Auto) 0.4 0.0-2.0 % Neutrophils # (Auto) 15.4 H 1.6-8.6 10 ^3/uL Lymphocytes # (Auto) 2.1 0.4-5.4 10 ^3/uL Monocytes # (Auto) 1.3 0-1.3 10 ^3/uL Eosinophils # (Auto) 0 0-0.8 10 ^3/uL Basophils # (Auto) 0.1 0-0.2 10 ^3/uL Nucleated Red Blood Cells 0.0 % Sodium Level 130 L 136-145 mmol/L Potassium Level 3.1 L 3.5-5.1 mmol/L Chloride Level 96 L 98-107 mmol/L Carbon Dioxide Level 19 L 20-31 mmol/L Anion Gap 15 5-15 Blood Urea Nitrogen 37 #H 9-23 mg/dL Creatinine 3.69 #H 0.700-1.30 mg/dL Glomerular Filtration Rate Calc 20 >90 mL/min BUN/Creatinine Ratio 10.0 10.0-20.0 Serum Glucose 314 #H 74-106 mg/dL Calcium Level 11.3 H 8.7-10.4 mg/dL Current Medications Medications (Trade) Dose Ordered Sig/Adina Route Start Time Stop Time Status Last Admin Sodium Chloride 1,000 ml @ 1,000 mls/hr Q1H ONCE IV 09/07/24 07:45 09/07/24 08:44 DC 09/07/24 08:02 Ondansetron HCl (Zofran) 4 mg ONCE ONCE IV 09/07/24 07:45 09/07/24 07:46 DC 09/07/24 08:02 Patient alert. Complaining of nausea vomiting. History of diabetes. Vitals stable. Establish intravenous access. Was given fluids. Reviewed his previous visit. Difficult patient to manage. Always leaves the ER. Explained to the patient. Continue cardiac monitoring. Chest XR: FINDINGS: Lines and Tubes: None Lungs: No focal consolidation. Pleura: No effusion. No pneumothorax. Cardiomediastinal contours: Unremarkable Bones: No acute osseous abnormality. IMPRESSION: 1. No acute cardiopulmonary disease. Images Reviewed?: Images reviewed and evaluated by me Time of 1ST Reevaluation: 08:37 Reevaluation 1ST: Unchanged Patient Education/Counseling: Diagnosis, Treatment Family Education/Counseling: No Family Present Departure 1 Departure Time of Disposition: 07:57 Impression: Primary Impression: Uncontrolled diabetes mellitus Qualified Codes: E13.65 - Other specified diabetes mellitus with hyperglycemia Disposition: ADMITTED INPATIENT Admit to: Med Surg Condition: Guarded Critical Care Note Critical Care Time?: Yes (45 min-critical care time only) Stability Stability form required: No Heart Score Heart Score: Heart Score Response (Comments) Value History N/A 0 EKG N/A 0 Age N/A 0 Risk Factors N/A 0 Troponin N/A 0 Total 0 I personally scribed for REJI SANTIAGO MD ([email or web address]) on 09/07/24 at 07:40. Electronically submitted by Min Collins ([email or web address]). I personally scribed for REJI SANTIAGO MD ([email or web address]) on 09/07/24 at 08:14. Electronically submitted by Min Collins ([email or web address]). REJI SANTIAGO MD Sep 07, 2024 07:40
[2024-09-07] MEDS: SODIUM CHLORIDE 0.9% 1,000 ML IV ONE ×3 (07:42→11:43)
[2024-09-07] MEDS: ONDANSETRON HCL 4 MG/2 ML VIAL IV ONE (08:02)
--- NOTE | 2024-09-07 08:07 | DVH ---
CHEST RADIOGRAPH Indication: sob Technique: Single frontal view of the chest was obtained Comparison: XY CHEST PORTABLE on DOS: 09/05/24 FINDINGS: Lines and Tubes: None Lungs: No focal consolidation. Pleura: No effusion. No pneumothorax. Cardiomediastinal contours: Unremarkable Bones: No acute osseous abnormality. IMPRESSION: 1. No acute cardiopulmonary disease.
[2024-09-07 08:36] LABS: Eosinophils # (auto) 0 10 ^3/uL (0-0.8); Lymphocytes # (auto) 2.1 10 ^3/uL (0.4-5.4); Red Cell Distribution Width 13.7 % (11.8-14.3)
[2024-09-07 08:38] LABS: Basophils # (auto) 0.1 10 ^3/uL (0-0.2); Basophils % (auto) 0.4 % (0.0-2.0); Hematocrit 50.2 % (41.0-53.0); Hemoglobin 16.9 g/dL (13.5-17.5); Lymphocytes % (auto) 11.3 % (10.0-50.0); Mean Corpuscular Hemoglobin 28.7 pg (28.0-32.0); Mean Corpuscular Hgb Conc. 33.7 g/dL (32.0-36.0); Mean Corpuscular Volume 85.3 fL (80.0-100.0); Monocytes # (auto) 1.3 10 ^3/uL (0-1.3); Monocytes % (auto) 6.9 % (0.0-12.0); Neutrophils # (auto) 15.4 10 ^3/uL (1.6-8.6); Neutrophils % (auto) 81.4 % (37.0-80.0); Platelet Count (auto) 450 10^3/uL (140-450); Red Blood Cells 5.89 10^6/uL (4.5-5.90); White Blood Cell 18.9 10^3/uL (4.4-10.8)
[2024-09-07 08:42] LABS: Anion Gap 15 (5-15)
[2024-09-07 09:00] LABS: Blood Urea Nitrogen 37 mg/dL (9-23); Calcium 11.3 mg/dL (8.7-10.4); Carbon Dioxide 19 mmol/L (20-31); Chloride 96 mmol/L (98-107); Glucose 314 mg/dL (74-106); Potassium 3.1 mmol/L (3.5-5.1); Sodium 130 mmol/L (136-145)
[2024-09-07] MEDS: MORPHINE SULFATE INJ 2 MG/ml SYRG IV ONE (10:37)
[2024-09-07] MEDS ORDERED: DOCUSATE SOD 100 MG CAP PO PRN (11:30)
[2024-09-07] MEDS ORDERED: ACETAMINOPHEN 325 MG TAB PO PRN (11:30)
[2024-09-07] MEDS ORDERED: METOCLOPRAMIDE HCL 5MG/ml INJ 2ml VIAL IV PRN (11:30)
--- NOTE | 2024-09-07 11:38 | DVHHP2 ---
History of Present Illness Reason for Visit: Abdominal pain History of Present Illness Eliu Palmer is a 44-year-old male with past medical history of diabetes, GERD, pancreatitis, and diverticulitis, came in for abdominal pain. Patient states he has been having abdominal pain for 6 days. Patient has been seen here frequently for similar complaints, he was seen yesterday and left AMA. Patient returned to the hospital today due to his abdominal pain worsening. Repeat lab work today shows worsening kidney function, leukocytosis, hyperglycemia, and hypokalemia. GI: Diverticulosis, GERD Endocrine: Diabetes Past Surgical History: Other (Back and neck [id number]) Family History: None Smoke: No ALCOHOL: none Drugs: Marijuana Lives: with Family Domestic Violence: Neg Review of Systems Constitutional: No: Fever, Chills, Sweats, Weakness, Malaise, Other Eyes: No: Pain, Vision change, Conjunctivae inflammation, Eyelid inflammation, Other, Redness ENT: No: Ear pain, Ear discharge, Nose pain, Nose discharge, Nose congestion, Mouth pain, Mouth swelling, Throat pain, Throat swelling, Other Respiratory: No: Cough, Dry, Shortness of breath, SOB with excertion, Wheezing, Hemoptysis, Pleuritic Pain, Sputum, Wheezing, Other Cardiovascular: No: Chest Pain, Palpitations, Orthopnea, Paroxysmal Noc. Dyspnea, Edema, Lt Headedness, Other Gastrointestinal: Nausea, Vomiting, Abdominal Pain; No: Diarrhea, Constipation, Melena, Hematochezia, Other Genitourinary: No Dysuria, No Frequency, No Incontinence, No Hematuria, No Retention, No Other Musculoskeletal: No: other, neck pain, shoulder pain, arm pain, back pain, hand pain, leg pain, foot pain Skin: No: Rash, Lesions, Jaundice, Bruising, Other Neurological: No: Weakness, Numbness, Incoordination, Change in speech, Confusion, Seizures, Other Allergies: Coded Allergies: NO KNOWN ALLERGIES (Unverified , 09/21/20) Medications Current Medications Medications Dose Ordered Sig/Adina Route Start Time Stop Time Status Last Admin Dose Admin Sodium Chloride 1,000 ml @ 100 mls/hr Q10H IV 09/07/24 11:30 UNV Acetaminophen/ Hydrocodone Bitart 1 tab Q4HP PRN PO 09/07/24 11:30 UNV Ondansetron HCl 4 mg Q4HP PRN IV 09/07/24 11:30 UNV Docusate Sodium 100 mg BIDPRN PRN PO 09/07/24 11:30 UNV Acetaminophen 650 mg Q6HP PRN PO 09/07/24 11:30 UNV Metoclopramide HCl 10 mg Q8HPRN PRN IV 09/07/24 11:30 UNV Ceftriaxone Sodium 50 ml @ 100 mls/hr DAILY@09 IV 09/08/24 09:00 UNV Exam Vital Signs Vital Signs Date Time Temp Pulse Resp B/P (MAP) Pulse Ox O2 Delivery O2 Flow Rate FiO2 09/07/24 10:37 102 22 154/84 09/07/24 10:24 Room Air* 0 N/A Trach Collar 09/07/24 10:05 97 09/07/24 08:03 98.7 General Appearance: Alert, Oriented X3, Cooperative, moderate distress HEENT: Atraumatic, PERRLA Respiratory: Clear to auscultation, Normal air movement Cardiovascular: Regular rate, Normal S1, Normal S2 Abdominal: Soft, Other (Abdominal pain) Extremities: No clubbing, No cyanosis, No edema, Normal pulses Skin: No rashes, No breakdown, No significant lesion Neuro: Normal gait, Normal speech, Strength at 5/5 X4 ext, Normal tone Psych/Mental Status: Mental status NL, Mood NL Labs/Xrays Labs Test 09/07/24 07:58 Range/Units White Blood Count 18.9 #H 4.4-10.8 10^3/uL Red Blood Count 5.89 4.5-5.90 10^6/uL Hemoglobin 16.9 13.5-17.5 g/dL Hematocrit 50.2 41.0-53.0 % Mean Corpuscular Volume 85.3 80.0-100.0 fL Mean Corpuscular Hemoglobin 28.7 28.0-32.0 pg Mean Corpuscular Hemoglobin Concent 33.7 32.0-36.0 g/dL Red Cell Distribution Width 13.7 11.8-14.3 % Platelet Count 450 140-450 10^3/uL Mean Platelet Volume 7.5 6.9-10.8 fL Neutrophils (%) (Auto) 81.4 H 37.0-80.0 % Lymphocytes (%) (Auto) 11.3 10.0-50.0 % Monocytes (%) (Auto) 6.9 0.0-12.0 % Eosinophils (%) (Auto) 0.0 0.0-7.0 % Basophils (%) (Auto) 0.4 0.0-2.0 % Neutrophils # (Auto) 15.4 H 1.6-8.6 10 ^3/uL Lymphocytes # (Auto) 2.1 0.4-5.4 10 ^3/uL Monocytes # (Auto) 1.3 0-1.3 10 ^3/uL Eosinophils # (Auto) 0 0-0.8 10 ^3/uL Basophils # (Auto) 0.1 0-0.2 10 ^3/uL Nucleated Red Blood Cells 0.0 % Sodium Level 130 L 136-145 mmol/L Potassium Level 3.1 L 3.5-5.1 mmol/L Chloride Level 96 L 98-107 mmol/L Carbon Dioxide Level 19 L 20-31 mmol/L Anion Gap 15 5-15 Blood Urea Nitrogen 37 #H 9-23 mg/dL Creatinine 3.69 #H 0.700-1.30 mg/dL Glomerular Filtration Rate Calc 20 >90 mL/min BUN/Creatinine Ratio 10.0 10.0-20.0 Serum Glucose 314 #H 74-106 mg/dL Calcium Level 11.3 H 8.7-10.4 mg/dL CHEST RADIOGRAPH FINDINGS: Lines and Tubes: None Lungs: No focal consolidation. Pleura: No effusion. No pneumothorax. Cardiomediastinal contours: Unremarkable Bones: No acute osseous abnormality. IMPRESSION: 1. No acute cardiopulmonary disease. Assessment/Plan Assessment/Plan Assessment: Uncontrolled diabetes mellitus, Acute kidney injury, Hypokalemia, Lactic acidosis, Plan: Admit to Med-Surg, Nephrology consult, IV antibiotics, IV hydration, Pain management, CT abdomen, Kidney ultrasound, Antiemetics, Accu checks Q 6 hours, NPO, Plan discussed with: Patient My Orders Orders - MANUEL ASCENCIO Procedure Category Date Status Time Admit ADMIT 09/07/24 Transmitted 11:20 Code Status CODE 09/07/24 Transmitted 11:20 Sodium Chloride 0.9% PHA 09/07/24 Logged 11:30 Hydrocodone-Acet PHA 09/07/24 Logged 5/325mg Tab ([place] 11:30 Ondansetron Hcl PHA 09/07/24 Logged (Zofran) 11:30 Docusate Sodium PHA 09/07/24 Logged Capsule (Colace 11:30 Complete Blood Count LAB 09/08/24 Verified 04:00 Comprehensive LAB 09/08/24 Verified Metabolic Panel 04:00 Npo (Nothing By DIET 09/07/24 Transmitted Mouth) Diet Lunch Condition: Serious LUKE 09/07/24 In Process 11:20 Acetaminophen Tablet PHA 09/07/24 Logged (Tylenol Tablet) 11:30 Sodium Chloride 0.9% PHA 09/07/24 Logged 11:30 Lactic Acid W/ Reflex LAB 09/07/24 Logged Order 11:20 Lipase LAB 09/07/24 Logged 11:20 Amylase LAB 09/07/24 Logged 11:20 Metoclopramide PHA 09/07/24 Logged Injection (Reglan 11:30 Metoclopramide PHA 09/07/24 Logged Injection (Reglan 11:30 Kidney US 09/07/24 Logged 11:24 Potassium Er Tablet PHA 09/07/24 Logged (Klor-Con Tablet) 11:30 Ceftriaxone Ivpb PHA 09/08/24 Transmitted Rocephin 09:00 Ceftriaxone Ivpb PHA 09/07/24 Transmitted Rocephin 11:30 *[facility] CONS 09/07/24 Transmitted -[place] 11:26 Date of Service: Sep 07, 2024 Billing Provider: MANUEL ASCENCIO Common Visit Codes: [id number] INP/OBS CARE (MOD) MANUEL ASCENCIO Sep 07, 2024 11:37
[2024-09-07] MEDS: POTASSIUM CHL 20 Meq TABLET PO ONE (11:43)
[2024-09-07] MEDS: SODIUM CHLORIDE 0.9% 1,000 ML IV SCH (11:48)
[2024-09-07] MEDS: cefTRIAXone 1GM/50ML D5W 50 ML IV ONE (11:51)
[2024-09-07] MEDS: METOCLOPRAMIDE HCL 5MG/ml INJ 2ml VIAL IV ONE (12:05)
--- NOTE | 2024-09-07 12:23 | DVH ---
INDICATION: RYNE TECHNIQUE: Multiple real-time sonographic images of the kidneys and bladder were obtained. COMPARISON: US KIDNEY on DOS: 06/10/24, US KIDNEY on DOS: 11/10/23 FINDINGS: RIGHT kidney measures 10.4 cm in length. No hydronephrosis. LEFT kidney measures 10.2 cm in length. No hydronephrosis. No large intraluminal masses are seen in the bladder. IMPRESSION: 1. Unremarkable examination.
[2024-09-07 12:25] VITALS: BP 129/75; PULSE 92; RESP 16; TEMP 98.5; O2SAT 95
[2024-09-07 12:43] LABS: Lipase 32 U/L (12-53)
[2024-09-07 12:45] LABS: Amylase 44 U/L (30-118)
[2024-09-07] MEDS: HYDROcodone-ACET 5/325MG TAB PO PRN ×2 (12:48→16:53)
--- NOTE | 2024-09-07 14:15 | DVH ---
CT ABDOMEN AND PELVIS WITHOUT CONTRAST CLINICAL HISTORY: Pain TECHNIQUE: Multiple contiguous axial images of the abdomen and pelvis without intravenous contrast. The images were reformatted degenerate coronal and sagittal reconstructions. All CT scans at this medical facility are performed using dose modulation techniques as appropriate t o a performed exam including the following:Automated exposure control was utilized; adjustment of the MA and/or KV according to patient size; and use of iterative reconstruction technique. Radiation Dose Information: CT Dose: CTDI volume is 9 mGy. Dose-length product is 490 mGy*cm Comparison: CT CT AB PEL WO CON-NO ORAL OR IV on DOS: 08/06/24, CT CT AB PEL WITH ORAL CON ONLY on DO S: 05/12/24 FINDINGS: Evaluation of the abdomen and pelvis is limited without intravenous contrast. The liver, gallbladder, pancreas, kidneys, adrenal glands, and spleen appear within normal limits. There is no gross evidence of abdominal lymphadenopathy. There is no free fluid or free air. The stomach grossly appears unremarkable. The small and large bowel loops demonstrate normal caliber . There are scattered diverticula in the colon without evidence of acute diverticulitis. A normal-ap pearing appendix is seen in the right lower quadrant abdomen without associated inflammatory changes. The abdominal aorta and IVC appear within normal limits. The bladder appears unremarkable for the degree of distention. Pelvic organ appears within normal licona its. There is no gross evidence of a pelvic mass. There is no free fluid collection. Lung bases are clear. There is no acute osseous abnormality. IMPRESSION: 1. There is no acute process in the abdomen and pelvis. 2. Scattered diverticula in the colon. HS:Y
--- NOTE | 2024-09-07 15:26 | DVHINCON2 ---
Date of service: Sep 07, 2024 Referring Physician Nicole Cuba NP Reason for Consultation Acute kidney injury History of Present Illness Patient is 44-year-old male with past medical history of DM, GERD, High Lipids, HTN, and PUD is admitted for diffuse abdominal pain associated with nausea and vomiting and blood in stool. On admission patient found to have elevated BUN creatinine nephrology is consulted for acute kidney injury Past Medical History PAST MEDICAL HISTORY: DM, GERD, High Lipids, HTN, PUD Past Surgical History Past Medical History (Other): Diverticulitis, Pancreatitis Allergies: Coded Allergies: NO KNOWN ALLERGIES (Unverified , 09/21/20) Home Meds Active Scripts Sucralfate (CARAFATE SUSP) 1 Gm/10 Ml Ss, 1 GM PO BID@0600,2200 for 30 Days, #20 ML 2 Refills Prov:DEBBIE BARRAGAN [facility] 08/08/24 Pantoprazole Sodium Sesquihydr (Pantoprazole Sodium) 40 Mg Tab, 40 MG PO DAILY for 30 Days, #30 TAB 2 Refills Prov:DEBBIE BARRAGAN [facility] 08/08/24 Metronidazole (Metronidazole) 500 Mg Tab, 500 MG PO TID for 5 Days, #15 TAB Prov:DEBBIE BARRAGAN [facility] 08/08/24 Ondansetron Odt 4MG Tab (ZOFRAN PO) 4 Mg Tb, 4 MG PO DAILY PRN for 30 Days, #30 TAB ODT TAB-DISSOLVE IN MOUTH, THEN SWALLOW Prov:DEBBIE BARRAGAN 08/08/24 Metoclopramide Hcl (Reglan) 5 Mg Tab, 5 MG PO DAILY PRN for 30 Days, #30 TAB Prov:DEBBIE BARRAGAN [facility] 08/08/24 Insulin Glargine (Lantus) 100 Unit/Ml Inj, 80 UNIT SC HS for 96 Days, #10 ML 1 Refill Prov:ROGELIO COBB MD 06/12/24 Pantoprazole Sodium Sesquihydr (Pantoprazole Sodium) 40 Mg Tab, 40 MG PO BID, #60 TAB Prov:NUBIA PRICE MD 12/21/23 Discontinued Reported Medications Insulin Lispro (Humalog Kwikpen) 100 Unit/Ml Inj, 6 UNIT SC TIDAC for 100 Days, #24 11/11/23 Discontinued Scripts Ciprofloxacin Hcl (Cipro) 500 Mg Tab, 1 TAB PO BID for 5 Days, #10 TAB Prov:DEBBIE BARRAGAN RESIDENT 08/08/24 Hydrocodone-Acetaminophen (Hydrocodone Bitartrate/AC 10-325 mg) 1 Tab Tab, 1 TAB PO TIDPRN PRN for 5 Days, #15 TAB 0 Refills Prov:RAFAEL VARGHESE MD 08/08/24 Hydrocodone-Acetaminophen (Hydrocodone Bitartrate/AC 5-325 mg) 1 Tab Tab, 1 TAB PO Q12HP PRN, #20 TAB Prov:ROGELIO COBB MD 06/12/24 Current Medications Current Medications Medications (Trade) Dose Ordered Sig/Adina Route PRN Reason Start Time Stop Time Status Last Admin Sodium Chloride 1,000 ml @ 100 mls/hr Q10H IV 09/07/24 11:30 09/07/24 11:48 Acetaminophen/ Hydrocodone Bitart ([place] 5/325MG Tab) 1 tab Q4HP PRN PO MODERATE PAIN (4-6 PAIN SCALE) 09/07/24 11:30 09/07/24 13:43 DC 09/07/24 12:48 Ondansetron HCl (Zofran) 4 mg Q4HP PRN IV NAUSEA / VOMITING 09/07/24 11:30 Docusate Sodium (Colace Capsule) 100 mg BIDPRN PRN PO FOR CONSTIPATION 09/07/24 11:30 Acetaminophen (Tylenol Tablet) 650 mg Q6HP PRN PO PAIN SCALE 1-3 OR TEMP>100.4 09/07/24 11:30 Metoclopramide HCl (Reglan Injection) 10 mg Q8HPRN PRN IV NAUSEA / VOMITING 09/07/24 11:30 Ceftriaxone Sodium 50 ml @ 100 mls/hr DAILY@09 IV 09/08/24 09:00 Acetaminophen/ Hydrocodone Bitart ([place] 5/325MG Tab) 1 tab Q4HPRN PRN PO SEVERE PAIN (7-10 PAIN SCALE) 09/07/24 13:45 Family History: Alzheimer's disease G8 FATHER Diabetes mellitus G8 BROTHER FH: lung cancer G8 MOTHER, Onset:Unknown Review of Systems All 12 item review of systems reviewed with the patient nonsignificant except what is mentioned in the history of present illness H&P Exam Vital Signs/I&O Vital Sign Date Time Temp Pulse Resp B/P (MAP) Pulse Ox O2 Delivery O2 Flow Rate FiO2 09/07/24 12:25 Room Air* 0 21 09/07/24 12:25 98.5 92 16 129/75 (93) 95 98.5 Physical Exam Patient is awake alert Lungs clear to auscultation bilaterally Cardiac exam regular rate and rhythm GI soft nontender was normal Extremities no clubbing cyanosis or edema Neuro nonfocal Labs/Diagnostic Data Labs/Diagnostic Data Laboratory Tests Test 09/07/24 15:07 09/07/24 07:58 Range/Units Lactic Acid Level 2.9 *H 0.4-2.0 mmol/L White Blood Count 18.9 #H 4.4-10.8 10^3/uL Red Blood Count 5.89 4.5-5.90 10^6/uL Hemoglobin 16.9 13.5-17.5 g/dL Hematocrit 50.2 41.0-53.0 % Mean Corpuscular Volume 85.3 80.0-100.0 fL Mean Corpuscular Hemoglobin 28.7 28.0-32.0 pg Mean Corpuscular Hemoglobin Concent 33.7 32.0-36.0 g/dL Red Cell Distribution Width 13.7 11.8-14.3 % Platelet Count 450 140-450 10^3/uL Mean Platelet Volume 7.5 6.9-10.8 fL Neutrophils (%) (Auto) 81.4 H 37.0-80.0 % Lymphocytes (%) (Auto) 11.3 10.0-50.0 % Monocytes (%) (Auto) 6.9 0.0-12.0 % Eosinophils (%) (Auto) 0.0 0.0-7.0 % Basophils (%) (Auto) 0.4 0.0-2.0 % Neutrophils # (Auto) 15.4 H 1.6-8.6 10 ^3/uL Lymphocytes # (Auto) 2.1 0.4-5.4 10 ^3/uL Monocytes # (Auto) 1.3 0-1.3 10 ^3/uL Eosinophils # (Auto) 0 0-0.8 10 ^3/uL Basophils # (Auto) 0.1 0-0.2 10 ^3/uL Nucleated Red Blood Cells 0.0 % Sodium Level 130 L 136-145 mmol/L Potassium Level 3.1 L 3.5-5.1 mmol/L Chloride Level 96 L 98-107 mmol/L Carbon Dioxide Level 19 L 20-31 mmol/L Anion Gap 15 5-15 Blood Urea Nitrogen 37 #H 9-23 mg/dL Creatinine 3.69 #H 0.700-1.30 mg/dL Glomerular Filtration Rate Calc 20 >90 mL/min BUN/Creatinine Ratio 10.0 10.0-20.0 Serum Glucose 314 #H 74-106 mg/dL Uric Acid 11.1 H 3.7-9.2 mg/dL Calcium Level 11.3 H 8.7-10.4 mg/dL Phosphorus Level 2.5 2.4-5.1 mg/dL Magnesium Level 2.5 1.6-2.6 mg/dL Amylase Level 44 30-118 U/L Lipase 32 12-53 U/L Vitamin D 25-Hydroxy 10.4 L 30.0-100 ng/mL Assessment Acute kidney injury superimposed Chronic Kidney Disease secondary hemodynamic mediated Diabetes mellitus type 2 Hypertension Hypercalcemia Abdominal pain Metabolic acidosis Hypokalemia Recommendations Closely monitor fluid and electrolytes Avoid nephrotoxic medications Strict I&Os Check urine analysis urine electrolytes and urine protein excretion Check kidney ultrasound Check phosphorus 25 hydroxyvitamin D and PTH KCL replacement GI consult We will continue to follow Patient seen and examined by myself. I discussed my plan of care with the patient and primary nurse at the bedside I would like to thank Nicole for the consult, will follow Plan discussed with: Patient YURIY RAMON MD Sep 07, 2024 15:26
[2024-09-07 15:58] LABS: Lactic Acid w/Reflex 2.9 mmol/L (0.4-2.0)
[2024-09-07 16:12] LABS: Magnesium 2.5 mg/dL (1.6-2.6)
[2024-09-07 16:13] LABS: Phosphorus 2.5 mg/dL (2.4-5.1)
[2024-09-07 17:00] VITALS: BP 155/81; PULSE 99; RESP 12; TEMP 98.6; O2SAT 96
[2024-09-07] MEDS ORDERED: METOCLOPRAMIDE HCL 10 MG TAB PO PRN (18:00)
[2024-09-07 20:00] VITALS: PULSE 92; RESP 19; O2SAT 96
[2024-09-07 21:00] VITALS: BP 143/89; PULSE 92; RESP 19; TEMP 98.1; O2SAT 96
[2024-09-07] MEDS: INSULIN LANTUS (GLARGINE) 1 /0.01ml (100units/ml) SC SCH (21:57)
[2024-09-08] VITALS (7 sets, daily range): BP systolic 131–156; BP diastolic 73–107; PULSE 76–94; RESP 16–19; TEMP 98–98.6; O2SAT 96–99
[2024-09-08] MEDS: ONDANSETRON HCL 4 MG/2 ML VIAL IV PRN (04:53)
[2024-09-08 06:44] LABS: Basophils # (auto) 0 10 ^3/uL (0-0.2); Basophils % (auto) 0.3 % (0.0-2.0); Eosinophils # (auto) 0 10 ^3/uL (0-0.8); Eosinophils % (auto) 0.1 % (0.0-7.0); Hematocrit 40.5 % (41.0-53.0); Hemoglobin 14.1 g/dL (13.5-17.5); Lymphocytes # (auto) 1.4 10 ^3/uL (0.4-5.4); Lymphocytes % (auto) 13.4 % (10.0-50.0); Mean Corpuscular Hemoglobin 28.8 pg (28.0-32.0); Mean Corpuscular Hgb Conc. 34.7 g/dL (32.0-36.0); Monocytes # (auto) 0.7 10 ^3/uL (0-1.3); Monocytes % (auto) 6.6 % (0.0-12.0); Neutrophils # (auto) 8.4 10 ^3/uL (1.6-8.6); Neutrophils % (auto) 79.6 % (37.0-80.0); Nucleated Red Blood Cells % 0.1 %; Platelet Count (auto) 372 10^3/uL (140-450); Red Blood Cells 4.88 10^6/uL (4.5-5.90); Red Cell Distribution Width 13.6 % (11.8-14.3); White Blood Cell 10.6 10^3/uL (4.4-10.8)
[2024-09-08 06:57] LABS: Alanine Aminotransferase 16 U/L (7-40); Alkaline Phosphatase 92 U/L (46-116); Anion Gap 8 (5-15); BUN/Creatinine Ratio 23.1 (10.0-20.0); Calcium 9.5 mg/dL (8.7-10.4); Carbon Dioxide 26 mmol/L (20-31); Chloride 101 mmol/L (98-107)
[2024-09-08 06:58] LABS: Albumin 4.2 g/dL (3.2-4.8); Aspartate Aminotransferase 29 U/L (13-40); Bilirubin, Total 0.5 mg/dL (0.2-1.0); Total Protein 7.1 g/dL (5.7-8.2)
[2024-09-08 07:06] LABS: Potassium 3.3 mmol/L (3.5-5.1); Sodium 135 mmol/L (136-145)
[2024-09-08 07:07] LABS: Blood Urea Nitrogen 28 mg/dL (9-23); Glucose 170 mg/dL (74-106)
[2024-09-08] MEDS: PANTOPRAZOLE 40 MG TAB PO SCH (07:52)
[2024-09-08] MEDS: cefTRIAXone 1GM/50ML D5W 50 ML IV SCH (07:54)
[2024-09-08] MEDS ORDERED: DEXTROSE (50%) 50ML SYRG IV PRN (09:45)
[2024-09-08] MEDS: InsuLIN REG 1unit/0.01ml Soln (100units/ml) SC SCH (11:31)
[2024-09-08] MEDS: ACCU-CHEK COMFORT CURVE STRIP VI SCH (11:31)
[2024-09-08] MEDS: LACTATED RINGER'S 1,000 ML IV SCH (11:40)
[2024-09-08] MEDS: MORPHINE SULFATE INJ 2 MG/ml SYRG IV ONE (11:50)
[2024-09-08] MEDS: SUCRALFATE 1 GM TAB PO ONE (11:50)
--- NOTE | 2024-09-08 14:56 | DVHPN2 ---
Progress Note Date Seen: Sep 08, 2024 Medical Necessity Reason Pt with a Central, PICC or Fol: No Subjective Patient reports: No new complaints Other Systems: Patient seen and examined by myself on follow-up today Objective vital signs Vital Sign Date Time Temp Pulse Resp B/P (MAP) Pulse Ox O2 Delivery O2 Flow Rate FiO2 09/08/24 14:10 98.0 89 18 155/92 (113) 99 98.0 09/08/24 08:00 Room Air* 0 21 Total Intake and Output 09/07/24 09/07/24 09/08/24 15:00 23:00 07:00 Intake Total 1000 ml 240 ml Balance 1000 ml 240 ml medications Current Medications Medications Dose Ordered Sig/Adina Route Start Time Stop Time Status Last Admin Dose Admin Ondansetron HCl 4 mg Q4HP PRN IV 09/07/24 11:30 09/08/24 12:56 4 MG Docusate Sodium 100 mg BIDPRN PRN PO 09/07/24 11:30 Acetaminophen 650 mg Q6HP PRN PO 09/07/24 11:30 Metoclopramide HCl 10 mg Q8HPRN PRN IV 09/07/24 11:30 Ceftriaxone Sodium 50 ml @ 100 mls/hr DAILY@09 IV 09/08/24 09:00 09/08/24 07:54 100 MLS/HR Acetaminophen/ Hydrocodone Bitart 1 tab Q4HPRN PRN PO 09/07/24 13:45 09/08/24 07:52 1 TAB Insulin Glargine 40 units HS SC 09/07/24 22:00 09/07/24 21:57 40 UNITS Pantoprazole Sodium 40 mg DAILY PO 09/08/24 10:00 09/08/24 07:52 40 MG Metoclopramide HCl 5 mg DAILY PRN PO 09/07/24 18:00 Sucralfate 1 gm BID PO 09/08/24 22:00 Lactated Ringer's 1,000 ml @ 100 mls/hr Q10H IV 09/08/24 09:15 09/08/24 11:40 100 MLS/HR Diagnostic Test (Pha) 1 strip Q6HR 09/08/24 12:00 09/08/24 11:31 1 STRIP Insulin Human Regular Q6HR SC 09/08/24 12:00 Dextrose 50 ml UD PRN IV 09/08/24 09:45 Examination: LUNGS:Normal, CVS:Normal, MSK:Normal laboratory and microbiology Laboratory Tests 09/08/24 05:17 Test 09/08/24 05:17 Range/Units Serum Glucose 170 #H 74-106 mg/dL Problem List/Assessment/Plan Problem List/Assessment/Plan Acute kidney injury superimposed Chronic Kidney Disease secondary hemodynamic mediated Diabetes mellitus type 2 Hypertension Hypercalcemia Abdominal pain Metabolic acidosis Hypokalemia Recommendations Kidney function is improving No urine output charted Strict I&Os Check urine analysis urine electrolytes and urine protein excretion kidney ultrasound reported within normal limit KCL replacement GI consult We will continue to follow Plan discussed with: Patient My Orders My Orders Orders - YURIY RAMON MD Procedure Category Date Status Time Urine Sodium LAB 09/07/24 Logged 15:23 Urine LAB 09/07/24 Logged Protein/Creatinine Urine Creatinine LAB 09/07/24 Logged 15:23 Urinalysis LAB 09/07/24 Logged 15:23 Hepatitis C Antibody LAB 09/07/24 In Process 15:23 Hepatitis B Surface LAB 09/07/24 In Process Antigen 15:23 Communication Order ORDERS 09/08/24 Verified 14:54 YURIY RAMON MD Sep 08, 2024 14:56
[2024-09-08] MEDS ORDERED: HYDROcodone-ACET 7.5/325MG TAB PO PRN (16:00)
--- NOTE | 2024-09-08 16:26 | DVHPNRES ---
Progress Note Date Seen: Sep 08, 2024 Resident Creating Document: YO SAMUEL RESIDENT Medical Necessity Reason Pt with a Central, PICC or Fol: No Subjective Review of Systems Eliu Palmer is a 44-year-old male with a past medical history of diabetes mellitus (DM), hypertension (HTN), hyperlipidemia (HLD), and gastroesophageal reflux disease (GERD) who presents to the emergency department via EMS for evaluation of worsening epigastric abdominal pain, nausea, and bloody vomiting that has been ongoing for six days. The patient reports that his symptoms began gradually, characterized by constant, dull pain in the mid-epigastric region, associated with intermittent nausea and vomiting. He denies any specific dietary triggers or recent changes in his medications. The patient denies fever, chills, diarrhea, constipation, hematemesis, melena, or hematochezia. He also denies any recent travel or significant contact with sick individuals. The patient has a history of monthly visits to the emergency department for similar complaints, for which he has typically received Zofran and pain medications. He was seen at [facility] ER yesterday but left against medical advice (AMA) . Recent laboratory studies revealed leukocytosis, hyperglycemia, and hypokalemia. Gastroenterology and nephrology consultations are on board. The patient has a history of cervical spine surgery in 2023 and lumbar spine surgery in 2022. He reports rare alcohol use and occasional marijuana use. He lives with his family and denies any history of domestic violence. He was started on [place] for the pain. urine studies still pending Hemoglobin went down from 16.9 to 14.1 ROS Constitutional: No: Fever, Chills, Sweats, Weakness, Malaise, Other Eyes: No: Pain, Vision change, Conjunctivae inflammation, Eyelid inflammation, Other, Redness ENT: No: Ear pain, Ear discharge, Nose pain, Nose discharge, Nose congestion, Mouth pain, Mouth swelling, Throat pain, Throat swelling, Other Respiratory: CNo Wheezing, Hemoptysis, Pleuritic Pain, Sputum, Wheezing, Other Cardiovascular: No: Chest Pain, Palpitations, Orthopnea, Paroxysmal Noc. Dyspnea, Edema, Lt Headedness, Other Gastrointestinal: Yes: Nausea vomiting, abdominal pain, hematemesis Musculoskeletal: No: other, neck pain, shoulder pain, arm pain, back pain, hand pain, leg pain, foot pain Neurological:; No: Weakness, Numbness, Incoordination, Change in speech, Confusion, Seizures Objective vital signs Vital Sign Date Time Temp Pulse Resp B/P (MAP) Pulse Ox O2 Delivery O2 Flow Rate FiO2 09/08/24 14:10 98.0 89 18 155/92 (113) 99 98.0 09/08/24 08:00 Room Air* 0 21 Total Intake and Output 09/07/24 09/07/24 09/08/24 15:00 23:00 07:00 Intake Total 1000 ml 240 ml Balance 1000 ml 240 ml medications Current Medications Medications Dose Ordered Sig/Adina Route Start Time Stop Time Status Last Admin Dose Admin Ondansetron HCl 4 mg Q4HP PRN IV 09/07/24 11:30 09/08/24 12:56 4 MG Docusate Sodium 100 mg BIDPRN PRN PO 09/07/24 11:30 Acetaminophen 650 mg Q6HP PRN PO 09/07/24 11:30 Metoclopramide HCl 10 mg Q8HPRN PRN IV 09/07/24 11:30 Ceftriaxone Sodium 50 ml @ 100 mls/hr DAILY@09 IV 09/08/24 09:00 09/08/24 07:54 100 MLS/HR Insulin Glargine 40 units HS SC 09/07/24 22:00 09/07/24 21:57 40 UNITS Pantoprazole Sodium 40 mg DAILY PO 09/08/24 10:00 09/08/24 07:52 40 MG Metoclopramide HCl 5 mg DAILY PRN PO 09/07/24 18:00 Sucralfate 1 gm BID PO 09/08/24 22:00 Lactated Ringer's 1,000 ml @ 100 mls/hr Q10H IV 09/08/24 09:15 09/08/24 11:40 100 MLS/HR Diagnostic Test (Pha) 1 strip Q6HR 09/08/24 12:00 09/08/24 11:31 1 STRIP Insulin Human Regular Q6HR SC 09/08/24 12:00 Dextrose 50 ml UD PRN IV 09/08/24 09:45 Acetaminophen/ Hydrocodone Bitart 1 tab Q6HP PRN PO 09/08/24 16:15 UNV Acetaminophen/ Hydrocodone Bitart 1 tab Q4HPRN PRN PO 09/08/24 16:15 UNV Examination Examination General Appearance: Alert, Oriented X3, Cooperative, No acute distress HEENT: EOMI Respiratory: Clear to auscultation, Normal air movement Cardiovascular: Regular rate, Normal S1, Normal S2 Abdominal: Normal bowel sounds, tender on palpation mainly in the epigastric area, nondistended Extremities: No cyanosis, No edema, Normal pulses, No tenderness/swelling Skin: No rashes, No breakdown Neuro: Normal speech, Strength at 5/5 X4 ext, Normal tone, Sensation intact, Cranial nerves 3-12 NL, Reflexes 2+ Psych/Mental Status: Mental status NL, Mood NL laboratory and microbiology Laboratory Tests 09/08/24 05:17 Test 09/08/24 05:17 Range/Units Serum Glucose 170 #H 74-106 mg/dL Problem List/Assessment/Plan Problem List/Assessment/Plan #Sepsis likely due to acute gastroenteritis, resolved #Acute epigastric abdominal pain likely acute gastritis #hematemesis GI consult pending pantoprazole IV Sucralfate BID po CT unremarkable Ceftriaxone 1gr IV #Acute kidney injury superimposed Chronic Kidney Disease secondary hemodynamic mediated improving Kidney us unremarkable urine studies are pending Nephrology on board #Diabetes mellitus type 2 insulin sliding scale #Hypercalcemia, resolved #Hypokalemia, replenished #Diverticular disease without diverticulitis Case discussed with Dr. Yap Goals of care discussed with the patient for 36 minutes Code status: Full code Plan discussed with: Patient My Orders My Orders Orders - YO SAMUEL RESIDENT Procedure Category Date Status Time Stool Occult Blood LAB 09/08/24 Logged 09:03 Ph Stool LAB 09/08/24 Logged 09:03 Sucralfate Tab PHA 09/08/24 In Process (Carafate Tab) 22:00 H. Pylori Urea Breath LAB 09/08/24 Logged Test 09:03 * Gi [facility] Licensed Guide CONS 09/08/24 Transmitted 09:03 Lactated Ringer's PHA 09/08/24 In Process 09:15 Npo Except For LUKE 09/08/24 In Process Medications 09:45 Glucose Blood PHA 09/08/24 In Process (Accu-Chek Comfort 12:00 Insulin R (Human) PHA 09/08/24 In Process (Insulin R) 12:00 Dextrose 50% Syringe PHA 09/08/24 In Process 09:45 Hydrocodone-Acet PHA 09/08/24 Logged 7.5/325mg Tab ([place] 16:15 Hydrocodone-Acet PHA 09/08/24 Logged 5/325mg Tab ([place] 16:15 Date of Service: Sep 08, 2024 Billing Provider: UBALDO YAP MD Common Visit Codes: [id number] INP/OBS CARE(HIGH) Secondary Visit Codes: [id number] CARE PLAN 30 MINUTES YO SAMUEL RESIDENT Sep 08, 2024 16:26 UBALDO YAP MD Sep 08, 2024 22:48
[2024-09-08] MEDS: HYDROcodone-ACET 7.5/325MG TAB PO ONE (16:30)
--- NOTE | 2024-09-08 17:26 | DVHINCON2 ---
Date of service: Sep 08, [address] Piña Reason for Consultation Nausea vomiting History of Present Illness Eliu Palmer is a 44-year-old male with past medical history of diabetes, GERD, pancreatitis, and diverticulitis, came in for abdominal pain. Patient states he has been having abdominal pain for 6 days. Patient has been seen here frequently for similar complaints, he was seen yesterday and left AMA. Patient returned to the hospital today due to his abdominal pain worsening. Repeat lab work today shows worsening kidney function, leukocytosis, hyperglycemia, and hypokalemia. I was asked to consult for possible gastritis. Patient is also known marijuana user. Patient had leukocytosis and acute renal failure which is now improving with IV hydration. Patient has had multiple admissions to the hospital with similar complaints likely related to cyclical vomiting syndrome from marijuana use. I had performed an endoscopy for him in January of 2024 which only showed a 0.5 cm sliding-type hiatal hernia with minimal gastritis Past Medical History GI: Diverticulosis, GERD Endocrine: Diabetes Depression Chronic marijuana use Past Surgical History Past Surgical History: Other (Back and neck surgery) Family History: Alzheimer's disease G8 FATHER Diabetes mellitus G8 BROTHER FH: lung cancer G8 MOTHER, Onset:Unknown Allergies: Coded Allergies: NO KNOWN ALLERGIES (Unverified , 09/21/20) Home Meds Active Scripts Pantoprazole Sodium Sesquihydr (Pantoprazole Sodium) 40 Mg Tab, 40 MG PO DAILY for 30 Days, #30 TAB 2 Refills Prov:DEBBIE BARRAGAN RESIDENT 08/08/24 Metoclopramide Hcl (Reglan) 5 Mg Tab, 5 MG PO DAILY PRN for 30 Days, #30 TAB Prov:DEBBIE BARRAGAN RESIDENT 08/08/24 Insulin Glargine (Lantus) 100 Unit/Ml Inj, 80 UNIT SC HS for 96 Days, #10 ML 1 Refill Prov:ROGELIO COBB MD 06/12/24 Discontinued Reported Medications Insulin Lispro (Humalog Kwikpen) 100 Unit/Ml Inj, 6 UNIT SC TIDAC for 100 Days, #24 11/11/23 Discontinued Scripts Sucralfate (CARAFATE SUSP) 1 Gm/10 Ml Ss, 1 GM PO BID@0600,2200 for 30 Days, #20 ML 2 Refills Prov:DEBBIE BARRAGAN RESIDENT 08/08/24 Metronidazole (Metronidazole) 500 Mg Tab, 500 MG PO TID for 5 Days, #15 TAB Prov:DEBBIE BARRAGAN RESIDENT 08/08/24 Ondansetron Odt 4MG Tab (ZOFRAN PO) 4 Mg Tb, 4 MG PO DAILY PRN for 30 Days, #30 TAB ODT TAB-DISSOLVE IN MOUTH, THEN SWALLOW Prov:DEBBIE BARRAGAN RESIDENT 08/08/24 Ciprofloxacin Hcl (Cipro) 500 Mg Tab, 1 TAB PO BID for 5 Days, #10 TAB Prov:DEBBIE BARRAGAN RESIDENT 08/08/24 Hydrocodone-Acetaminophen (Hydrocodone Bitartrate/AC 10-325 mg) 1 Tab Tab, 1 TAB PO TIDPRN PRN for 5 Days, #15 TAB 0 Refills Prov:RAFAEL VARGHESE MD 08/08/24 Hydrocodone-Acetaminophen (Hydrocodone Bitartrate/AC 5-325 mg) 1 Tab Tab, 1 TAB PO Q12HP PRN, #20 TAB Prov:ROGELIO COBB MD 06/12/24 Pantoprazole Sodium Sesquihydr (Pantoprazole Sodium) 40 Mg Tab, 40 MG PO BID, #60 TAB Prov:NUBIA PRICE MD 12/21/23 Current Medications Current Medications Medications (Trade) Dose Ordered Sig/Adina Route PRN Reason Start Time Stop Time Status Last Admin Ceftriaxone Sodium 50 ml @ 100 mls/hr DAILY@09 IV 09/08/24 09:00 09/08/24 07:54 Insulin Glargine (Lantus) 40 units HS SC 09/07/24 22:00 09/07/24 21:57 Pantoprazole Sodium (Protonix Tablet) 40 mg DAILY PO 09/08/24 10:00 09/08/24 07:52 Metoclopramide HCl (Reglan Tablet) 5 mg DAILY PRN PO NAUSEA / VOMITING 09/07/24 18:00 Sucralfate (Carafate Tab) 1 gm BID PO 09/08/24 22:00 09/08/24 16:31 DC Lactated Ringer's 1,000 ml @ 100 mls/hr Q10H IV 09/08/24 09:15 09/08/24 11:40 Diagnostic Test (Pha) (Accu-Chek Comfort Curve T) 1 strip Q6HR 09/08/24 12:00 09/08/24 17:04 Insulin Human Regular (InsuLIN R) Q6HR SC 09/08/24 12:00 Dextrose 50 ml UD PRN IV Blood Sugar LESS THAN 60 09/08/24 09:45 Acetaminophen/ Hydrocodone Bitart ([place] 7.5/325MG Tab) 1 tab Q6HP PRN PO MODERATE PAIN (4-6 PAIN SCALE) 09/08/24 16:00 09/08/24 16:22 DC Acetaminophen/ Hydrocodone Bitart ([place] 7.5/325MG Tab) 1 tab Q6HP PRN PO SEVERE PAIN (7-10 PAIN SCALE) 09/08/24 16:15 Acetaminophen/ Hydrocodone Bitart ([place] 5/325MG Tab) 1 tab Q4HPRN PRN PO MODERATE PAIN (4-6 PAIN SCALE) 09/08/24 16:15 Sucralfate (Carafate Susp) 1 gm BID@0600,2200 PO 09/08/24 22:00 Review of Systems Operative Report DATE OF OPERATION: 02/02/24 PROCEDURE: Upper Endoscopy with biopsy. PREOPERATIVE INDICATION: The patient is a 43 -year-old male undergoing endoscopy for epigastric pain and history of hematemesis on 1 occasion POSTOPERATIVE DIAGNOSES: 1. Mild gastritis involving the antrum and body of the stomach with some superficial erosions 2. 0.5 to 1 cm sliding-type hiatal hernia with slightly irregular squamocolumnar junction no significant erosive esophagitis PROCEDURE PERFORMED BY: Angel Ponce Vital Signs Vital Signs Date Time Temp Pulse Resp B/P (MAP) Pulse Ox O2 Delivery O2 Flow Rate FiO2 09/08/24 17:02 98.6 82 16 153/92 (112) 97 98.6 09/08/24 08:00 Room Air* 0 21 Physical Exam Patient is awake alert Lungs clear to auscultation bilaterally Cardiac exam regular rate and rhythm GI soft nontender Extremities no clubbing cyanosis or edema Neuro nonfocal Labs/Diagnostic Data Labs Test 09/08/24 16:43 09/08/24 05:17 09/07/24 16:30 09/07/24 15:07 Range/Units POC Glucose 123 H 70-106 mg/dl White Blood Count 10.6 # 4.4-10.8 10^3/uL Red Blood Count 4.88 4.5-5.90 10^6/uL Hemoglobin 14.1 # 13.5-17.5 g/dL Hematocrit 40.5 #L 41.0-53.0 % Mean Corpuscular Volume 83.0 80.0-100.0 fL Mean Corpuscular Hemoglobin 28.8 28.0-32.0 pg Mean Corpuscular Hemoglobin Concent 34.7 32.0-36.0 g/dL Red Cell Distribution Width 13.6 11.8-14.3 % Platelet Count 372 140-450 10^3/uL Mean Platelet Volume 7.3 6.9-10.8 fL Neutrophils (%) (Auto) 79.6 37.0-80.0 % Lymphocytes (%) (Auto) 13.4 10.0-50.0 % Monocytes (%) (Auto) 6.6 0.0-12.0 % Eosinophils (%) (Auto) 0.1 0.0-7.0 % Basophils (%) (Auto) 0.3 0.0-2.0 % Neutrophils # (Auto) 8.4 1.6-8.6 10 ^3/uL Lymphocytes # (Auto) 1.4 0.4-5.4 10 ^3/uL Monocytes # (Auto) 0.7 0-1.3 10 ^3/uL Eosinophils # (Auto) 0 0-0.8 10 ^3/uL Basophils # (Auto) 0 0-0.2 10 ^3/uL Nucleated Red Blood Cells 0.1 % Sodium Level 135 #L 136-145 mmol/L Potassium Level 3.3 L 3.5-5.1 mmol/L Chloride Level 101 98-107 mmol/L Carbon Dioxide Level 26 20-31 mmol/L Anion Gap 8 5-15 Blood Urea Nitrogen 28 H 9-23 mg/dL Creatinine 1.21 # 0.700-1.30 mg/dL Glomerular Filtration Rate Calc 75 >90 mL/min BUN/Creatinine Ratio 23.1 H 10.0-20.0 Serum Glucose 170 #H 74-106 mg/dL Calcium Level 9.5 8.7-10.4 mg/dL Total Bilirubin 0.5 0.2-1.0 mg/dL Aspartate Amino Transferase (AST) 29 13-40 U/L Alanine Aminotransferase (ALT) 16 7-40 U/L Alkaline Phosphatase 92 46-116 U/L Total Protein 7.1 5.7-8.2 g/dL Albumin 4.2 3.2-4.8 g/dL B-Type Natriuretic Peptide 13.29 0-100 pg/mL Parathyroid Hormone (Intact) 102.1 H 18.4-80.1 pg/mL Lactic Acid Level 2.9 *H 0.4-2.0 mmol/L Test 09/07/24 07:58 Range/Units Uric Acid 11.1 H 3.7-9.2 mg/dL Phosphorus Level 2.5 2.4-5.1 mg/dL Magnesium Level 2.5 1.6-2.6 mg/dL Amylase Level 44 30-118 U/L Lipase 32 12-53 U/L Vitamin D 25-Hydroxy 10.4 L 30.0-100 ng/mL CT SCAN ABD PELVIS IMPRESSION: 1. There is no acute process in the abdomen and pelvis. 2. Scattered diverticula in the colon. Problems(with codes): (1) Generalized weakness (2) Nausea with vomiting, unspecified (3) Acute renal injury (4) Leukocytosis, unspecified (5) Nausea and vomiting (6) Cyclical vomiting syndrome (7) Gastritis Plan/Recommendation Plan At this point in time I would recommend conservative management as the patient has had a recent EGD Recent ultrasound and imaging tests were also normal, liver enzymes are normal Continue IV fluid hydration Continue Protonix 40 mg IV q.12 hours Carafate suspension 1 g p.o. 4 times a day Zofran as needed for nausea and vomiting Clear liquid diet Advance diet as tolerated I will follow up patient with you Plan discussed with: Patient, Other ANGEL PONCE MD Sep 08, 2024 17:26
[2024-09-08] MEDS: HYDROcodone-ACET 7.5/325MG TAB PO PRN (20:32)
[2024-09-08 20:37] LABS: Urine Bacteria None Seen /hpf (None Seen)
[2024-09-08 21:01] LABS: Urine Blood Negative /uL (Negative); Urine Clarity Clear (Clear); Urine Color Light-Yellow (Yellow); Urine Protein, UAD TRACE (Negative); Urine Specific Gravity 1.028 (1.001-1.035); Urine Urobilinogen Normal (Negative); Urine WBC <1 /hpf (0 - 3); Urine pH 6.5 (5.0-9.0)
[2024-09-08 21:50] LABS: Sodium Urine 60 mmol/L (40-220)
[2024-09-08 21:55] LABS: Protein, Urine 34.2 mg/dL (1-14)
[2024-09-08 21:57] LABS: Creatinine, Urine 168.39 mg/dL (30.0-125.0)
[2024-09-08] MEDS ORDERED: SUCRALFATE 1 GM TAB PO SCH (22:00)
[2024-09-08] MEDS: SUCRALFATE 1 GM/10 ML ORAL SUSP PO SCH (22:02)
[2024-09-08 22:03] LABS: Amphetamine Screen, Urine Neg (NEGATIVE); Barbiturate Scree,Urine Neg (NEGATIVE); Benzodiazephine Screen, Urine Neg (NEGATIVE); Cannabinoid Screen, Urine Pos (NEGATIVE); Cocaine Screen, Urine Neg (NEGATIVE); Opiate Scree,Urine Pos (NEGATIVE); Phencyclidine Screen, Urine Neg (NEGATIVE)
[2024-09-09 01:00] VITALS: BP 141/85; PULSE 72; RESP 18; TEMP 97.9; O2SAT 98
[2024-09-09] MEDS: HYDROcodone-ACET 5/325MG TAB PO PRN (03:24)
[2024-09-09 05:00] VITALS: BP 154/62; PULSE 72; RESP 17; TEMP 98.9; O2SAT 97
[2024-09-09 06:41] LABS: Basophils # (auto) 0 10 ^3/uL (0-0.2); Basophils % (auto) 0.5 % (0.0-2.0); Eosinophils # (auto) 0.1 10 ^3/uL (0-0.8); Eosinophils % (auto) 0.6 % (0.0-7.0); Hematocrit 39.1 % (41.0-53.0); Hemoglobin 13.6 g/dL (13.5-17.5); Lymphocytes # (auto) 2.6 10 ^3/uL (0.4-5.4); Lymphocytes % (auto) 32.6 % (10.0-50.0); Mean Corpuscular Hgb Conc. 34.9 g/dL (32.0-36.0); Mean Corpuscular Volume 83.3 fL (80.0-100.0); Monocytes # (auto) 0.7 10 ^3/uL (0-1.3); Monocytes % (auto) 8.4 % (0.0-12.0); Neutrophils # (auto) 4.7 10 ^3/uL (1.6-8.6); Neutrophils % (auto) 57.9 % (37.0-80.0); Nucleated Red Blood Cells % 0.1 %; Platelet Count (auto) 338 10^3/uL (140-450); Red Cell Distribution Width 13.3 % (11.8-14.3); White Blood Cell 8.1 10^3/uL (4.4-10.8)
[2024-09-09 07:05] LABS: Anion Gap 5 (5-15); Carbon Dioxide 29 mmol/L (20-31); Chloride 101 mmol/L (98-107)
[2024-09-09 07:06] LABS: Calcium 9.2 mg/dL (8.7-10.4)
[2024-09-09 07:11] LABS: BUN/Creatinine Ratio 11.8 (10.0-20.0); Blood Urea Nitrogen 11 mg/dL (9-23)
[2024-09-09 07:13] LABS: Glucose 108 mg/dL (74-106); Potassium 3.2 mmol/L (3.5-5.1); Sodium 135 mmol/L (136-145)
[2024-09-09 08:00] VITALS: BP 138/77; PULSE 71; PULSE 80; RESP 14; RESP 16; TEMP 98.2; O2SAT 97; O2SAT 99
[2024-09-09] MEDS: POTASSIUM EFFERVESENT TAB 25 MEQ PO ONE ×2 (09:15→10:30)
--- NOTE | 2024-09-09 10:27 | DVHPN2 ---
Progress Note Date Seen: Sep 09, 2024 Medical Necessity Reason Pt with a Central, PICC or Fol: No Subjective Other Systems: PATIENT SEEN AND EXAMINED BY MYSELF ON FOLLOW-UP TODAY Objective vital signs Vital Sign Date Time Temp Pulse Resp B/P (MAP) Pulse Ox O2 Delivery O2 Flow Rate FiO2 09/09/24 08:00 98.2 71 14 138/77 (97) 99 98.2 09/08/24 20:00 Room Air* 0 21 Total Intake and Output 09/08/24 09/08/24 09/09/24 15:00 23:00 07:00 Intake Total 1250 ml 1180 ml 1200 ml Output Total 200 ml Balance 1250 ml 980 ml 1200 ml medications Current Medications Medications Dose Ordered Sig/Adina Route Start Time Stop Time Status Last Admin Dose Admin Ondansetron HCl 4 mg Q4HP PRN IV 09/07/24 11:30 09/09/24 03:30 4 MG Docusate Sodium 100 mg BIDPRN PRN PO 09/07/24 11:30 Acetaminophen 650 mg Q6HP PRN PO 09/07/24 11:30 Metoclopramide HCl 10 mg Q8HPRN PRN IV 09/07/24 11:30 Ceftriaxone Sodium 50 ml @ 100 mls/hr DAILY@09 IV 09/08/24 09:00 09/09/24 09:05 100 MLS/HR Insulin Glargine 40 units HS SC 09/07/24 22:00 09/07/24 21:57 40 UNITS Pantoprazole Sodium 40 mg DAILY PO 09/08/24 10:00 09/09/24 09:05 40 MG Metoclopramide HCl 5 mg DAILY PRN PO 09/07/24 18:00 Lactated Ringer's 1,000 ml @ 100 mls/hr Q10H IV 09/08/24 09:15 09/09/24 05:15 100 MLS/HR Diagnostic Test (Pha) 1 strip Q6HR 09/08/24 12:00 09/09/24 05:08 1 STRIP Insulin Human Regular Q6HR SC 09/08/24 12:00 Dextrose 50 ml UD PRN IV 09/08/24 09:45 Acetaminophen/ Hydrocodone Bitart 1 tab Q6HP PRN PO 09/08/24 16:15 09/09/24 09:31 1 TAB Acetaminophen/ Hydrocodone Bitart 1 tab Q4HPRN PRN PO 09/08/24 16:15 09/09/24 03:24 1 TAB Sucralfate 1 gm BID@0600,2200 PO 09/08/24 22:00 09/09/24 04:49 1 GM Examination: LUNGS:Normal, CVS:Normal, MSK:Abnormal laboratory and microbiology Laboratory Tests 09/09/24 05:37 Test 09/09/24 05:37 Range/Units Serum Glucose 108 H 74-106 mg/dL Problem List/Assessment/Plan Problem List/Assessment/Plan Acute kidney injury superimposed Chronic Kidney Disease secondary hemodynamic mediated Diabetes mellitus type 2 Hypertension Hypercalcemia Abdominal pain Metabolic acidosis Hypokalemia Recommendations Kidney function continues to improve No urine output charted Strict I&Os kidney ultrasound reported within normal limit KCL replacement GI consult We will continue to follow Plan discussed with: Patient My Orders My Orders Orders - YURIY RAMON MD Procedure Category Date Status Time Communication Order ORDERS 09/08/24 Transmitted 14:54 Potassium Effervesent PHA 09/09/24 Verified Tab (Klor-Con/Ef) 10:30 YURIY RAMON MD Sep 09, 2024 10:27
[2024-09-09] MEDS ORDERED: SUCR1SUS26 PO (11:06)
[2024-09-09] MEDS ORDERED: PANT40T PO (11:06)
[2024-09-09 11:33] VITALS: TEMP 36.8
[2024-09-09 13:25] VITALS: BP 138/79; PULSE 80; RESP 18; TEMP 97.9; O2SAT 99
--- NOTE | 2024-09-09 13:30 | DVHDSRES ---
Discharge Summary Date of Admission Resident Creating Document: VEE SPANN RESIDENT Sep 07, 2024 at 11:20 Date of Discharge: Sep 09, 2024 Admitting Diagnosis Nausea, vomiting abdominal pain Labs/Diagnostic Data: Laboratory Results Test 09/09/24 11:18 09/09/24 05:37 09/08/24 05:17 09/08/24 00:00 POC Glucose 169 mg/dl (70-106) White Blood Count 8.1 10^3/uL (4.4-10.8) Red Blood Count 4.70 10^6/uL (4.5-5.90) Hemoglobin 13.6 g/dL (13.5-17.5) Hematocrit 39.1 % (41.0-53.0) Mean Corpuscular Volume 83.3 fL (80.0-100.0) Mean Corpuscular Hemoglobin 29.0 pg (28.0-32.0) Mean Corpuscular Hemoglobin Concent 34.9 g/dL (32.0-36.0) Red Cell Distribution Width 13.3 % (11.8-14.3) Platelet Count 338 10^3/uL (140-450) Mean Platelet Volume 6.9 fL (6.9-10.8) Neutrophils (%) (Auto) 57.9 % (37.0-80.0) Lymphocytes (%) (Auto) 32.6 % (10.0-50.0) Monocytes (%) (Auto) 8.4 % (0.0-12.0) Eosinophils (%) (Auto) 0.6 % (0.0-7.0) Basophils (%) (Auto) 0.5 % (0.0-2.0) Neutrophils # (Auto) 4.7 10 ^3/uL (1.6-8.6) Lymphocytes # (Auto) 2.6 10 ^3/uL (0.4-5.4) Monocytes # (Auto) 0.7 10 ^3/uL (0-1.3) Eosinophils # (Auto) 0.1 10 ^3/uL (0-0.8) Basophils # (Auto) 0 10 ^3/uL (0-0.2) Nucleated Red Blood Cells 0.1 % Sodium Level 135 mmol/L (136-145) Potassium Level 3.2 mmol/L (3.5-5.1) Chloride Level 101 mmol/L (98-107) Carbon Dioxide Level 29 mmol/L (20-31) Anion Gap 5 (5-15) Blood Urea Nitrogen 11 mg/dL (9-23) Creatinine 0.93 mg/dL (0.700-1.30) Glomerular Filtration Rate Calc 103 mL/min (>90) BUN/Creatinine Ratio 11.8 (10.0-20.0) Serum Glucose 108 mg/dL (74-106) Calcium Level 9.2 mg/dL (8.7-10.4) Total Bilirubin 0.5 mg/dL (0.2-1.0) Aspartate Amino Transferase (AST) 29 U/L (13-40) Alanine Aminotransferase (ALT) 16 U/L (7-40) Alkaline Phosphatase 92 U/L (46-116) Total Protein 7.1 g/dL (5.7-8.2) Albumin 4.2 g/dL (3.2-4.8) Urine Color Light-yellow (Yellow) Urine Clarity Clear (Clear) Urine pH 6.5 (5.0-9.0) Urine Specific [place] 1.028 (1.001-1.035) Urine Protein Trace (Negative) Urine Ketones Negative (Negative) Urine Blood Negative /uL (Negative) Urine Nitrite Negative (Negative) Urine Bilirubin Negative (Negative) Urine Urobilinogen Normal mg/dL (Negative) Urine Leukocyte Esterase Negative /uL (Negative) Urine RBC 2 /hpf (0 - 3) Urine WBC <1 /hpf (0 - 3) Urine Squamous Epithelial Cells Few /hpf (<5) Urine Bacteria None seen /hpf (None Seen) Urine Creatinine 168.39 mg/dL (30.0-125.0) Urine Protein/Creatinine Ratio 0.20 Urine Sodium 60 mmol/L (40-220) Urine Glucose Normal mg/dL (Normal) Urine Total Protein 34.2 mg/dL (1-14) Urine Opiates Screen Pos (NEGATIVE) Urine Fentanyl Screen Neg (NEGATIVE) Urine Barbiturates Screen Neg (NEGATIVE) Urine Phencyclidine Screen Neg (NEGATIVE) Urine Amphetamines Screen Neg (NEGATIVE) Urine Benzodiazepines Screen Neg (NEGATIVE) Urine Cocaine Screen Neg (NEGATIVE) Urine Cannabinoids Screen Pos (NEGATIVE) Test 09/07/24 16:30 09/07/24 15:07 09/07/24 07:58 B-Type Natriuretic Peptide 13.29 pg/mL (0-100) Parathyroid Hormone (Intact) 102.1 pg/mL (18.4-80.1) Lactic Acid Level 2.9 mmol/L (0.4-2.0) Uric Acid 11.1 mg/dL (3.7-9.2) Phosphorus Level 2.5 mg/dL (2.4-5.1) Magnesium Level 2.5 mg/dL (1.6-2.6) Amylase Level 44 U/L (30-118) Lipase 32 U/L (12-53) Vitamin D 25-Hydroxy 10.4 ng/mL (30.0-100) Other Laboratory Tests 09/09/24 05:37 Brief Hx & Hospital Course: Discharge Summary Patient Information: Name: Eliu Palmer Age: 44 years Gender: Male Chief Complaint: Worsening epigastric abdominal pain, nausea, and bloody vomiting for six days History of Present Illness: Symptoms began gradually with constant, dull pain in the mid-epigastric region, associated with intermittent nausea and vomiting. No specific dietary triggers or recent medication changes. Denies fever, chills, diarrhea, constipation, hematemesis, melena, hematochezia, recent travel, or contact with sick individuals. Medical History: Past Medical History: Diabetes mellitus (DM), hypertension (HTN), hyperlipidemia (HLD), gastroesophageal reflux disease (GERD) Past Surgical History: Cervical spine surgery (2023), lumbar spine surgery (2022) Social History: Rare alcohol use, occasional marijuana use, lives with family Recent Medical Visits: Monthly visits to the emergency department for similar complaints, typically treated with Zofran and pain medications. Seen at [facility] ER yesterday but left AMA. Recent labs showed leukocytosis, hyperglycemia, and hypokalemia. Consultations with gastroenterology and nephrology completed. Current Status: Today, the patient denies nausea, vomiting, abdominal pain, or distention. Hemodynamically stable. Physical Examination: General Appearance: Alert, oriented x3, cooperative, no acute distress HEENT: EOMI Respiratory: Clear to auscultation, normal air movement Cardiovascular: Regular rate, normal S1, normal S2 Abdominal: Normal bowel sounds, tender on palpation mainly in the epigastric area, nondistended Extremities: No cyanosis, no edema, normal pulses, no tenderness/swelling Skin: No rashes, no breakdown Neurological: Normal speech, strength 5/5 x4 extremities, normal tone, sensation intact, cranial nerves 3-12 normal, reflexes 2+ Psych/Mental Status: Normal mental status, normal mood Treatment and Discharge Plan: Medications: Protonix Carafate Follow-Up: Primary care physician in 1-2 weeks Behavioral Health Worker as scheduled Condition on Discharge: Hemodynamically stable, no abdominal pain or distention, tolerating food Discharge Instructions: Continue prescribed medications as directed. Monitor for any worsening symptoms such as increased pain, nausea, vomiting, or signs of gastrointestinal bleeding. Follow up with primary care physician and surgical supervisor as advised. Maintain hydration and rest as needed. Condition at Discharge: Stable Final Diagnosis/Problems List #Sepsis likely due to acute gastroenteritis, resolved #Acute epigastric abdominal pain likely acute gastritis #hematemesis #Acute kidney injury superimposed Chronic Kidney Disease secondary hemodynamic mediated #Diabetes mellitus type 2 #Hypercalcemia, resolved #Hypokalemia, replenished #Diverticular disease without diverticulitis # Nausea with vomiting, Cyclical vomiting syndrome, possibly due to marijuana abuse # Generalized weakness # Gastritis, secondary to small gastric ulcer # Lactic acidosis, Metabolic acidosis, due to vomiting and gastritis Discharge Disposition: Home SNF Discharge Will this Physician continue t: No Discharge Instruct/Medications Diet: Consistent carbohydrate Activity: No Restrictions, As Tolerated Follow Up/Referral: Follow up with PCP in 1-2 weeks Medications: Continue home medications -Protonix 40 PO mg daily - Carafate 1 g daily 14 days Discharge Statement: "Patient was advised to return to the ER or call 911 if any headaches, dizziness, shortness of breath, chest pain, abdominal pain, bleeding, fevers, or worsening of medical condition. Patient was counseled about treatment plan, medications, possible side effects, patientverbalized understanding. All questions were answered to the best of my ability. This discharge took greater then 30 minutes in planning, reviewing documentation, counseling the patient, and discussing with other team members." ASSESSMENT ASSESSMENT Assessment #Sepsis likely due to acute gastroenteritis, resolved #Acute epigastric abdominal pain likely acute gastritis #hematemesis #Acute kidney injury superimposed Chronic Kidney Disease secondary hemodynamic mediated #Diabetes mellitus type 2 #Hypercalcemia, resolved #Hypokalemia, replenished #Diverticular disease without diverticulitis # Nausea with vomiting, Cyclical vomiting syndrome, possibly due to marijuana abuse # Generalized weakness # Gastritis, secondary to small gastric ulcer # Lactic acidosis, Metabolic acidosis, due to vomiting and gastritis Date of Service: Sep 09, 2024 Billing Provider: UBALDO YAP MD Common Visit Codes: 91227-POD/OBS DISCH DAY >30min VEE SPANN RESIDENT Sep 09, 2024 13:30 UBALDO YAP MD Sep 11, 2024 17:40
[2024-09-11 08:46] LABS: Hepatitis B Surface Antigen Negative (Negative)
[2024-09-11 09:07] LABS: Hepatitis C Antibody Negative (Negative)
== END 2024-09-09 15:30 | disposition home or self-care (01) | DRG 720 ==
LOC: EDBD 07:30 → ER 07:30 → OVERFLOW 11:20 → WEST WING 12:17
PROVIDERS: ADMIT Internal Medicine Geriatric Medicine; ATTEND Internal Medicine Geriatric Medicine
DX: A41.9 Sepsis, unspecified organism (principal); N17.0 Acute kidney failure with tubular necrosis; E87.20 Acidosis, unspecified; K57.31 Diverticulosis of large intestine without perforation or abscess with bleeding; K29.01 Acute gastritis with bleeding; E11.22 Type 2 diabetes mellitus with diabetic chronic kidney disease; E83.52 Hypercalcemia; E87.6 Hypokalemia; K21.9 Gastro-esophageal reflux disease without esophagitis; N18.9 Chronic kidney disease, unspecified; E78.5 Hyperlipidemia, unspecified; I12.9 Hypertensive chronic kidney disease with stage 1 through stage 4 chronic kidney disease, or unspecified chronic kidney disease; F32.A Depression, unspecified; K52.9 Noninfective gastroenteritis and colitis, unspecified; F12.10 Cannabis abuse, uncomplicated; Z87.11 Personal history of peptic ulcer disease; Z83.3 Family history of diabetes mellitus; Z82.0 Family history of epilepsy and other diseases of the nervous system; Z80.1 Family history of malignant neoplasm of trachea, bronchus and lung; R11.15 Cyclical vomiting syndrome unrelated to migraine
CPT/HCPCS: 36415; 71045; 74176; 76775; 80048; 80053; 80307; 81001; 82150; 82306; 82570; 82962; 83605; 83690; 83735; 83880; 83970; 84100; 84156; 84300; 84550; 85025; 86803; 87340; 96365; 96375; 99291; G0378; J1815; J2405

== ENCOUNTER 2024-11-26 08:30 | Inpatient (IN) | payer MEDICAID ==
[~2024-11-26] VITALS: Ht 172.7 cm; Wt 83.6 kg
[~2024-11-26 08:30] MED LIST changes: -CIPR-173 PO; -HYDR-4798 PO; -HYDR-4902 PO; -INSU100I4 SC; -MET500T PO; -ZOFR4T PO
[2024-11-26] MEDS ORDERED: InsuLIN REG 1unit/0.01ml Soln (100units/ml) SC ONE (09:45)
[2024-11-26] MEDS: SODIUM CHLORIDE 0.9% 1,000 ML IV ONE ×2 (10:07→12:50)
--- NOTE | 2024-11-26 10:07 | ED.PDOC ---
History of present illness HPI Comments 44 y.o male with PMHx of DM, HTN, hyperlipidemia, PUD and GERD, presents to the ED via EMS for a chief complaint of diffused abdominal pain associated with nausea, vomiting that started 3 days ago. Patient reports persistent vomiting with new onset of hematemesis episodes. Patient reports non compliant with me dications, has not been checking her blood glucose but had readings up in the 600's 3 days ago. Upon ED arrival, patient's glucose reads 586. Patient denies any chest pain, SOB, fever, chills. He also denies substance, alcohol or tobacco use. Chief Complaint: Abdominal Pain Time Seen by MD: 09:44 Primary Care Provider: " I DON'T KNOW THE NAME" History of present illness: Nurses Notes, Medications, Allergies Allergies: Coded Allergies: NO KNOWN ALLERGIES (Unverified , 09/21/20) Home Meds Active Scripts Sucralfate (CARAFATE SUSP) 1 Gm/10 Ml Ss, 1 GM PO BID@0600,2200 for 14 Days, #10 ML Prov:VEE SPANN RESIDENT 09/09/24 Pantoprazole Sodium Sesquihydr (Pantoprazole Sodium) 40 Mg Tab, 40 MG PO DAILY for 30 Days, #30 TAB 2 Refills Prov:VEE SPANN RESIDENT 09/09/24 Metoclopramide Hcl (Reglan) 5 Mg Tab, 5 MG PO DAILY PRN for 30 Days, #30 TAB Prov:DEBBIE BARRAGAN RESIDENT 08/08/24 Insulin Glargine (Lantus) 100 Unit/Ml Inj, 80 UNIT SC HS for 96 Days, #10 ML 1 Refill Prov:ROGELIO COBB MD 06/12/24 Information Source: Patient Mode of Arrival: EMS Timing: Days (3) Duration: Since onset History of: Diabetes, Insulin use Modifying factors: Nothing Associated signs and symptoms: Abdominal Pain, Nausea, Vomiting Past Medical History PAST MEDICAL HISTORY: DM, GERD, High Lipids, HTN, PUD Surgical History: Denies all surgeries Family History Family History: Reviewed,noncontributory to illness Social History Smoker: Non-Smoker Alcohol: Denies ETOH Use Drugs: Marijuana Lives In: Home Constitutional: denies: chills, diaphoresis, fatigue, fever, malaise, sweats, weakness, others EENTM: denies: blurred vision, double vision, ear bleeding, ear discharge, ear drainage, ear pain, ear ringing, eye pain, eye redness, hearing loss, mouth pain, mouth swelling, nasal discharge, nose bleeding, nose congestion, nose pain, photophobia, tearing, throat pain, throat swelling, voice changes, others Respiratory: denies: cough, hemoptysis, orthopnea, SOB at rest, shortness of breath, SOB with excertion, stridor, wheezing, others Cardiovascular: denies: chest pain, dizzy spells, diaphoresis, Dyspnea on exertion, edema, irregular heart beat, left arm pain, lightheadedness, palpitations, PND, syncope, others Gastrointestinal: reports: abdominal pain, hematemesis, nausea, vomiting; denies: abdomen distended, blood streaked bowels, constipated, diarrhea, dysphagia, difficulty swallowing, melena, poor appetite, poor fluid intake, rectal bleeding, rectal pain, others Genitourinary: denies: burning, dysuria, flank pain, frequency, hematuria, incontinence, penile discharge, penile sore, pain, testicle pain, testicle swelling, urgency, others Neurological: denies: dizziness, fainting, headache, left sided numbness, left sided weakness, numbness, paresthesia, pre-existing deficit, right sided numbness, right sided weakness, seizure, speech problems, tingling, tremors, weakness, others Musculoskeletal: denies: back pain, gout, joint pain, joint swelling, muscle pain, muscle stiffness, neck pain, others Integumetry: denies: bruises, change in color, change in hair/nails, dryness, laceration, lesions, lumps, rash, wounds, others Allergic/Immunocompromised: denies: Difficulty Healing, Frequent Infections, Hives, Itching, others Hematologic/Lymphatic: denies: anemia, blood clots, easy bleeding, easy bruising, swollen glands, others Endocrine: denies: excessive hunger, excessive sweating, excessive thirst, excessive urination, flushing, intolerance to cold, intolerance to heat, unexplained weight gain, unexplained weight loss, others Psychiatric: denies: anxiety, bipolar disorder, depression, hopeless, panic disorder, schizophrenia, sleepless, suicidal, others All Other Systems: Reviewed and Negative Physical Exam General Appearance: Moderate Distress HEENT: Normal ENT Inspection, Pharynx Normal, TMs Normal Neck: Full Range of Motion, Non-Tender, Normal, Normal Inspection Respiratory: Chest Non-Tender, Lungs Clear, No Accessory Muscle Use, No Respiratory Distress, Normal Breath Sounds Cardiovascular: No Edema, No JVD, No Murmur, No Gallop, Normal Peripheral Pulses, Regular Rate/Rhythm Breast Exam: Deferred Gastrointestinal: No Organomegaly, Non Tender, No Pulsatile Mass, Normal Bowel Sounds, Soft Genitalia: Deferred Pelvic: Deferred Rectal: Deferred Extremities: No calf tenderness, Normal capillary refill, Normal inspection, Normal range of motion, Non-tender, No pedal edema Musculoskeletal : Apperance: Normal Neurologic: Alert, flat knitter helper II-XII nml as Tested, No Motor Deficits, Normal Affect, Normal Mood, No Sensory Deficits Cerebellar Function: Normal Reflexes: Normal Skin: Dry, Normal Color, Warm Lymphatic: No Adenopathy Was a procedure done? Was a procedure done?: No Differential Diagnosis (DM) Differential Diagnosis: Appendicitis, Bowel Obstruction, Cholecystitis, Dehydration, Diabetic Coma, DKA, Electrolyte Abnormality, Gastritis, Gastroenteritis, Hepatitis, Hyperglycemia, Hyperosmolar State, Pancreatitis, Pyelonephritis, UTI, Other X-Ray, Labs, Meds, VS Vital Signs Date Time Temp Pulse Resp B/P (MAP) Pulse Ox O2 Delivery O2 Flow Rate FiO2 11/26/24 11:31 100 20 148/97 (114) 92 11/26/24 10:27 175/110 11/26/24 09:43 97.9 115 20 139/92 (108) 99 97.9 11/26/24 08:30 98.7 106 16 162/95 (117) 96 Lab Test 11/26/24 11:55 11/26/24 10:40 11/26/24 09:50 Range/Units Urine Color Light-yellow Yellow Urine Clarity Clear Clear Urine pH 5.5 5.0-9.0 Urine Specific [place] 1.028 1.001-1.035 Urine Protein 1+ H Negative Urine Ketones Negative Negative Urine Blood 3+ H Negative /uL Urine Nitrite Negative Negative Urine Bilirubin Negative Negative Urine Urobilinogen Normal Negative mg/dL Urine Leukocyte Esterase Negative Negative /uL Urine RBC 1 0 - 3 /hpf Urine Microscopic WBC < 1 0-3 /HPF Urine Squamous Epithelial Cells Few <5 /hpf Urine Bacteria Few H None Seen /hpf Urine Glucose 4+ H Normal mg/dL Troponin I High Sensitivity 44 55 *H </=54 ng/L White Blood Count 25.2 H 4.4-10.8 10^3/uL Red Blood Count 6.31 H 4.5-5.90 10^6/uL Hemoglobin 17.7 H 13.5-17.5 g/dL Hematocrit 53.2 H 41.0-53.0 % Mean Corpuscular Volume 84.2 80.0-100.0 fL Mean Corpuscular Hemoglobin 28.0 28.0-32.0 pg Mean Corpuscular Hemoglobin Concent 33.3 32.0-36.0 g/dL Red Cell Distribution Width 14.9 H 11.8-14.3 % Platelet Count 478 H 140-450 10^3/uL Mean Platelet Volume 7.6 6.9-10.8 fL Neutrophils (%) (Auto) 85.4 H 37.0-80.0 % Lymphocytes (%) (Auto) 7.1 L 10.0-50.0 % Monocytes (%) (Auto) 7.1 0.0-12.0 % Eosinophils (%) (Auto) 0.0 0.0-7.0 % Basophils (%) (Auto) 0.4 0.0-2.0 % Neutrophils # (Auto) 21.5 H 1.6-8.6 10 ^3/uL Lymphocytes # (Auto) 1.8 0.4-5.4 10 ^3/uL Monocytes # (Auto) 1.8 H 0-1.3 10 ^3/uL Eosinophils # (Auto) 0 0-0.8 10 ^3/uL Basophils # (Auto) 0.1 0-0.2 10 ^3/uL Nucleated Red Blood Cells 0.1 % Sodium Level 125 L 136-145 mmol/L Potassium Level 3.8 3.5-5.1 mmol/L Chloride Level 85 L 98-107 mmol/L Carbon Dioxide Level 27 20-31 mmol/L Anion Gap 13 5-15 Blood Urea Nitrogen 52 H 9-23 mg/dL Creatinine 3.26 H 0.700-1.30 mg/dL Glomerular Filtration Rate Calc 23 >90 mL/min BUN/Creatinine Ratio 16.0 10.0-20.0 Serum Glucose 571 *H 74-106 mg/dL Calcium Level 11.1 H 8.7-10.4 mg/dL Total Bilirubin 1.3 H 0.2-1.0 mg/dL Aspartate Amino Transferase (AST) 134 H 13-40 U/L Alanine Aminotransferase (ALT) 58 H 7-40 U/L Alkaline Phosphatase 139 H 46-116 U/L Total Protein 9.8 H 5.7-8.2 g/dL Albumin 5.9 H 3.2-4.8 g/dL Lipase 31 12-53 U/L Current Medications Medications (Trade) Dose Ordered Sig/Adina Route Start Time Stop Time Status Last Admin Pantoprazole Sodium (Protonix) 40 mg ONCE ONCE IV 11/26/24 09:45 11/26/24 09:52 DC 11/26/24 10:21 Ondansetron HCl (Zofran) 4 mg ONCE ONCE IV 11/26/24 09:45 11/26/24 09:52 DC 11/26/24 10:22 Sodium Chloride 1,000 ml @ 1,000 mls/hr Q1H ONCE IV 11/26/24 09:45 11/26/24 10:44 DC 11/26/24 10:07 Insulin Human Regular (InsuLIN R) 6 units ONCE ONCE IV 11/26/24 10:30 11/26/24 10:31 DC 11/26/24 10:25 Fentanyl Citrate 12.5 mcg ONCE ONCE IV 11/26/24 10:30 11/26/24 10:31 DC 11/26/24 10:27 Ceftriaxone Sodium 50 ml @ 100 mls/hr ONCE ONCE IV 11/26/24 11:45 11/26/24 12:14 DC 11/26/24 11:53 Time of 1ST Reevaluation: 10:02 Reevaluation 1ST: Unchanged Patient Education/Counseling: Diagnosis, Treatment, Prognosis Family Education/Counseling: No Family Present Additional Information - I reviewed the following notes from patient's past medical encounters: 09/07/24 for uncontrolled DM 08/26/24 abdominal pain 08/05/24 for uncontrolled DM Multiple visits throughout the year of 2023 for uncontrolled DM. - The following tests were ordered, and results were reviewed by me: CT abdominal/pelvis, PHA, lab including lipase, troponin x3, and CBC - Additional information was gathered from interviewing the following independent Historian: None - I reviewed and agreed with the following test results read by other provider: CT abdominal and pelvis - I discussed treatments and results with medical personnel and: Patient Departure 1 Departure Time of Disposition: 12:40 Impression: Primary Impression: Acute abdominal pain Additional Impressions: Uncontrolled type 2 DM with hyperosmolar nonketotic hyperglycemia Dehydration Pseudohyponatremia Renal failure Qualified Codes: N17.9 - Acute kidney failure, unspecified Disposition: ADMITTED INPATIENT Admit to: Tele Condition: Serious Discharged With: Self Critical Care Note Critical Care Time?: Yes (55 min-critical care time only) Critical care comment: Due to concerns for patients condition deteriorating, the care required my highest level of attention and readiness to intervene. I assessed the patient, reviewed the medical records, ordered the appropriate tests and treatments, then reassessed for results and responsiveness. I communicated with medical personnel and consultants and formulated a plan of care. Total critical care time excludes any procedures Stability Stability form required: No Heart Score Heart Score: Heart Score Response (Comments) Value History N/A 0 EKG N/A 0 Age N/A 0 Risk Factors N/A 0 Troponin N/A 0 Total 0 I personally scribed for MARTIN KOENIG MD ([employer]) on 11/26/24 at 10:07. Electronically submitted by Chetna Marin ([employer] I personally scribed for MARTIN KOENIG MD ([employer]) on 11/26/24 at 10:22. Electronically submitted by Chetna Marin ([employer] MARTIN KOENIG MD Nov 26, 2024 10:07
[2024-11-26 10:17] LABS: Basophils # (auto) 0.1 10 ^3/uL (0-0.2); Basophils % (auto) 0.4 % (0.0-2.0); Eosinophils # (auto) 0 10 ^3/uL (0-0.8); Hematocrit 53.2 % (41.0-53.0); Hemoglobin 17.7 g/dL (13.5-17.5); Lymphocytes # (auto) 1.8 10 ^3/uL (0.4-5.4); Lymphocytes % (auto) 7.1 % (10.0-50.0); Mean Corpuscular Hgb Conc. 33.3 g/dL (32.0-36.0); Mean Corpuscular Volume 84.2 fL (80.0-100.0); Monocytes # (auto) 1.8 10 ^3/uL (0-1.3); Monocytes % (auto) 7.1 % (0.0-12.0); Neutrophils # (auto) 21.5 10 ^3/uL (1.6-8.6); Neutrophils % (auto) 85.4 % (37.0-80.0); Nucleated Red Blood Cells % 0.1 %; Platelet Count (auto) 478 10^3/uL (140-450); Red Blood Cells 6.31 10^6/uL (4.5-5.90); Red Cell Distribution Width 14.9 % (11.8-14.3); White Blood Cell 25.2 10^3/uL (4.4-10.8)
[2024-11-26 10:19] LABS: Anion Gap 13 (5-15); Carbon Dioxide 27 mmol/L (20-31); Potassium 3.8 mmol/L (3.5-5.1)
[2024-11-26] MEDS: PANTOPRAZOLE 40 MG/10 ML VIAL INJ IV ONE (10:21)
[2024-11-26] MEDS: ONDANSETRON HCL 4 MG/2 ML VIAL IV ONE (10:22)
[2024-11-26] MEDS: InsuLIN REG 1unit/0.01ml Soln (100units/ml) IV ONE ×2 (10:25→12:18)
[2024-11-26 10:27] LABS: Alanine Aminotransferase 58 U/L (7-40); Alkaline Phosphatase 139 U/L (46-116); Aspartate Aminotransferase 134 U/L (13-40); Bilirubin, Total 1.3 mg/dL (0.2-1.0); Blood Urea Nitrogen 52 mg/dL (9-23); Calcium 11.1 mg/dL (8.7-10.4); Chloride 85 mmol/L (98-107); Sodium 125 mmol/L (136-145); Total Protein 9.8 g/dL (5.7-8.2)
[2024-11-26] MEDS: fentaNYL CITRATE 100 MCG/2 ML VL IV ONE (10:27)
[2024-11-26 10:28] LABS: Albumin 5.9 g/dL (3.2-4.8)
[2024-11-26 10:29] LABS: Glucose 571 mg/dL (74-106)
[2024-11-26 11:02] LABS: Lipase 31 U/L (12-53)
--- NOTE | 2024-11-26 11:44 | DVH ---
Procedure: CT CT AB PEL WO CON-NO ORAL OR IV 11/26/2024 10:33 AM Indication: epigastric pain, vominting Comparison Study: CT CT AB PEL WO CON-NO ORAL OR IV on DOS: 09/07/24, CT CT AB PEL WO CON-NO ORAL OR IV on DOS: 08/06/24, CT CT AB PEL WITH ORAL CON ONLY on DOS: 05/12/24 Technique: Axial images were obtained and reformatted in coronal and sagittal planes. All CT scans at this medical facility are performed using dose modulation techniques as appropriate to a performed e xam including the following: Automated exposure control was utilized; adjustment of the MA and/or KV according to patient size; and use of iterative reconstruction technique. CT Dose: CTDI volume is 9 m Gy. Dose-length product is 491 mGy*cm FINDINGS: Lower Chest: Unremarkable. Hepatobiliary: Hepatic steatosis. Spleen: Unremarkable. Pancreas: Unremarkable. Adrenal Glands: Unremarkable. tract: The kidneys are normal in size bilaterally without hydronephrosis or nephrolithiasis. The u rinary bladder is unremarkable. GI tract: The stomach is grossly normal in appearance. No evidence of small bowel obstruction. Descen ding and sigmoid colon diverticulosis without diverticulitis. The appendix is not visualized. No infl ammatory change is noted in the right lower quadrant. Lymphatics: No mesenteric, retroperitoneal or periportal lymphadenopathy. Vasculature: The abdominal aorta is normal in in caliber. Pelvic Organs: Prostate is mildly enlarged. Bones/soft tissues: No acute abnormality. Degenerative changes of the lumbar spine noted. Small fat-c ontaining umbilical hernia. Other: None. IMPRESSION: 1. No CT evidence of acute abnormality in the abdomen and pelvis. 2. Hepatic steatosis. 3. Descending and sigmoid diverticulosis without diverticulitis. 4. Mild prostatic hyperplasia.
[2024-11-26] MEDS: cefTRIAXone 1GM/50ML D5W 50 ML IV ONE (11:53)
[2024-11-26 12:13] LABS: Urine Bacteria FEW /hpf (None Seen); Urine Blood 3+ /uL (Negative); Urine Clarity Clear (Clear); Urine Color Light-Yellow (Yellow); Urine Protein, UAD 1+ (Negative); Urine Specific Gravity 1.028 (1.001-1.035); Urine Squamous Epithelial Cell FEW /hpf (<5); Urine Urobilinogen Normal (Negative); Urine WBC < 1 /HPF (0-3); Urine pH 5.5 (5.0-9.0)
--- NOTE | 2024-11-26 14:03 | DVH ---
CHEST RADIOGRAPH Indication: Shortness of breath Technique: Single frontal view of the chest was obtained Comparison: XY CHEST PORTABLE on DOS: 09/07/24, XY CHEST PORTABLE on DOS: 09/05/24 FINDINGS: Lines and Tubes: None Lungs: No focal consolidation. Pleura: No effusion. No pneumothorax. Cardiomediastinal contours: Unremarkable Bones: No acute osseous abnormality. IMPRESSION: No acute cardiopulmonary disease.
[2024-11-26] MEDS ORDERED: ACETAMINOPHEN 325 MG TAB PO PRN (14:45)
[2024-11-26] MEDS ORDERED: HYDROcodone-ACET 5/325MG TAB PO PRN (14:45)
[2024-11-26] MEDS ORDERED: DEXTROSE (50%) 50ML SYRG IV PRN (14:45)
[2024-11-26] MEDS ORDERED: VANCOMYCIN PER PHARMACY 0 MG IV SCH (14:45)
[2024-11-26] MEDS ORDERED: SUCR1TAB PO (15:04)
--- NOTE | 2024-11-26 15:12 | DVHHP2 ---
History of Present Illness Reason for Visit: Abdominal pain History of Present Illness This 44-year-old male with past medical history of diabetes, hypertension, hyperlipidemia,PUD, GERD, gastritis, marijuana use presents in the ED with a chief complaint of abdominal pain. The patient reports abdominal pain associated with nausea, vomiting, hematemesis, and melena started three days ago. In the emergency department the patient was found to have hyperglycemia with A1c of 9.4. The patient reports currently taking Lantus and Humalog. Patient denies lightheadedness, syncope, chest pain, or other acute symptoms. Review of Systems Constitutional: Yes: Malaise; No: Fever, Chills, Sweats, Weakness, Other Eyes: No: Pain, Vision change, Conjunctivae inflammation, Eyelid inflammation, Other, Redness ENT: No: Ear pain, Ear discharge, Nose pain, Nose discharge, Nose congestion, Mouth pain, Mouth swelling, Throat pain, Throat swelling, Other Respiratory: No: Cough, Dry, Shortness of breath, SOB with excertion, Wheezing, Hemoptysis, Pleuritic Pain, Sputum, Wheezing, Other Cardiovascular: No: Chest Pain, Palpitations, Orthopnea, Paroxysmal Noc. Dyspnea, Edema, Lt Headedness, Other Gastrointestinal: Nausea, Vomiting, Abdominal Pain, Melena, Other (Hematemesis); No: Diarrhea, Constipation, Hematochezia Genitourinary: No Dysuria, No Frequency, No Incontinence, No Hematuria, No Retention, No Other Musculoskeletal: No: other, neck pain, shoulder pain, arm pain, back pain, hand pain, leg pain, foot pain Skin: No: Rash, Lesions, Jaundice, Bruising, Other Neurological: No: Weakness, Numbness, Incoordination, Change in speech, Confusion, Seizures, Other Allergies: Coded Allergies: NO KNOWN ALLERGIES (Unverified , 09/21/20) Exam Vital Signs Vital Signs Date Time Temp Pulse Resp B/P (MAP) Pulse Ox O2 Delivery O2 Flow Rate FiO2 11/26/24 11:31 100 20 148/97 (114) 92 11/26/24 09:43 97.9 97.9 General Appearance: Alert, Oriented X3, Cooperative, mild distress HEENT: Atraumatic, PERRLA, EOMI, Mucous membr. moist/pink Respiratory: Clear to auscultation, Normal air movement Cardiovascular: Regular rate, Normal S1, Normal S2 Abdominal: Normal bowel sounds, Soft, No tenderness Extremities: No clubbing, No cyanosis, No edema, Normal pulses Skin: No rashes, No breakdown, No significant lesion Neuro: Normal speech, Normal tone Psych/Mental Status: Mental status NL Labs/Xrays Labs Test 11/26/24 12:41 11/26/24 11:55 11/26/24 09:50 Range/Units Troponin I High Sensitivity 39 </=54 ng/L Urine Color Light-yellow Yellow Urine Clarity Clear Clear Urine pH 5.5 5.0-9.0 Urine Specific [place] 1.028 1.001-1.035 Urine Protein 1+ H Negative Urine Ketones Negative Negative Urine Blood 3+ H Negative /uL Urine Nitrite Negative Negative Urine Bilirubin Negative Negative Urine Urobilinogen Normal Negative mg/dL Urine Leukocyte Esterase Negative Negative /uL Urine RBC 1 0 - 3 /hpf Urine Microscopic WBC < 1 0-3 /HPF Urine Squamous Epithelial Cells Few <5 /hpf Urine Bacteria Few H None Seen /hpf Urine Glucose 4+ H Normal mg/dL White Blood Count 25.2 H 4.4-10.8 10^3/uL Red Blood Count 6.31 H 4.5-5.90 10^6/uL Hemoglobin 17.7 H 13.5-17.5 g/dL Hematocrit 53.2 H 41.0-53.0 % Mean Corpuscular Volume 84.2 80.0-100.0 fL Mean Corpuscular Hemoglobin 28.0 28.0-32.0 pg Mean Corpuscular Hemoglobin Concent 33.3 32.0-36.0 g/dL Red Cell Distribution Width 14.9 H 11.8-14.3 % Platelet Count 478 H 140-450 10^3/uL Mean Platelet Volume 7.6 6.9-10.8 fL Neutrophils (%) (Auto) 85.4 H 37.0-80.0 % Lymphocytes (%) (Auto) 7.1 L 10.0-50.0 % Monocytes (%) (Auto) 7.1 0.0-12.0 % Eosinophils (%) (Auto) 0.0 0.0-7.0 % Basophils (%) (Auto) 0.4 0.0-2.0 % Neutrophils # (Auto) 21.5 H 1.6-8.6 10 ^3/uL Lymphocytes # (Auto) 1.8 0.4-5.4 10 ^3/uL Monocytes # (Auto) 1.8 H 0-1.3 10 ^3/uL Eosinophils # (Auto) 0 0-0.8 10 ^3/uL Basophils # (Auto) 0.1 0-0.2 10 ^3/uL Nucleated Red Blood Cells 0.1 % Sodium Level 125 L 136-145 mmol/L Potassium Level 3.8 3.5-5.1 mmol/L Chloride Level 85 L 98-107 mmol/L Carbon Dioxide Level 27 20-31 mmol/L Anion Gap 13 5-15 Blood Urea Nitrogen 52 H 9-23 mg/dL Creatinine 3.26 H 0.700-1.30 mg/dL Glomerular Filtration Rate Calc 23 >90 mL/min BUN/Creatinine Ratio 16.0 10.0-20.0 Serum Glucose 571 *H 74-106 mg/dL Hemoglobin A1c 9.4 H <5.7 % A1C Calcium Level 11.1 H 8.7-10.4 mg/dL Total Bilirubin 1.3 H 0.2-1.0 mg/dL Aspartate Amino Transferase (AST) 134 H 13-40 U/L Alanine Aminotransferase (ALT) 58 H 7-40 U/L Alkaline Phosphatase 139 H 46-116 U/L Total Protein 9.8 H 5.7-8.2 g/dL Albumin 5.9 H 3.2-4.8 g/dL Lipase 31 12-53 U/L PROCEDURE(s): ABPL - CT AB PEL WO CON-NO ORAL OR IV REASON: epigastric pain, vominting ORDER NUMBER(s): [id number], ACCESSION NUMBER(s): [id number] Procedure: CT CT AB PEL WO CON-NO ORAL OR IV 11/26/2024 10:33 AM Indication: epigastric pain, vominting Comparison Study: CT CT AB PEL WO CON-NO ORAL OR IV on DOS: 09/07/24, CT CT AB PEL WO CON-NO ORAL OR IV on DOS: 08/06/24, CT CT AB PEL WITH ORAL CON ONLY on DOS: 05/12/24 Technique: Axial images were obtained and reformatted in coronal and sagittal planes. All CT scans at this medical facility are performed using dose m odulation techniques as appropriate to a performed exam including the following: Automated exposure control was utilized; adjustment of the MA and/or KV according to patient size; and use of iterative reconstruction technique. CT Dose: CTDI volume is 9 mGy. Dose-length product is 491 mGy*cm FINDINGS: Lower Chest: Unremarkable. Hepatobiliary: Hepatic steatosis. Spleen: Unremarkable. Pancreas: Unremarkable. Adrenal Glands: Unremarkable. tract: The kidneys are normal in size bilaterally without hydronephrosis or nephrolithiasis. The urinary bladder is unremarkable. GI tract: The stomach is grossly normal in appearance. No evidence of small bowel obstruction. Descending and sigmoid colon diverticulosis without diverticulitis. The appendix is not visualized. No inflammatory change is noted in the right lower quadrant. Lymphatics: No mesenteric, retroperitoneal or periportal lymphadenopathy. Vasculature: The abdominal aorta is normal in in caliber. Pelvic Organs: Prostate is mildly enlarged. Bones/soft tissues: No acute abnormality. Degenerative changes of the lumbar spine noted. Small fat-containing umbilical hernia. Other: None. IMPRESSION: 1. No CT evidence of acute abnormality in the abdomen and pelvis. 2. Hepatic steatosis. 3. Descending and sigmoid diverticulosis without diverticulitis. 4. Mild prostatic hyperplasia. Assessment/Plan Assessment/Plan # rule out sepsis # leukocytosis Admit to medical unit Empiric antibiotic Pancultures Stool for cdiff # acute abdominal pain # hx of gastritis # nausea and vomiting # transaminitis GI consult NPO except for meds until seen by GI Pain control PPI Carafate Monitor liver function IV fluid # uncontrolled diabetes # possible non-medical compliance, given multiple admission with uncontrolled diabetes Insulin sliding scale Lantus Counseled on medical compliance # acute kidney injury, possible due to uncontrolled diabetes Nephrology consult IV fluid # hypertension Hydralazine as needed Monitor # hyperlipidemia Check lipid panel # marijuana abuse Counseled on marijuana cessation UDS Medical plan discussed with patient and RN Plan discussed with: Patient My Orders 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 Procedure Category Date Status Time Chest Xray 1 View XY 11/26/24 Resulted 13:25 * [facility] [employer] CONS 11/26/24 Verified 14:43 Stool Bacterial SOFY 11/26/24 Verified Culture 14:43 Glucose Blood PHA 11/26/24 Verified (Accu-Chek Comfort 17:00 Mild Sliding Scale PHA 11/26/24 Verified 17:00 Dextrose 50% Syringe PHA 11/26/24 Verified 14:45 Insulin Lantus PHA 11/26/24 Verified (Glargine) (Lantus) 22:00 Insulin Lantus PHA 11/26/24 Verified (Glargine) (Lantus) 14:45 Blood Culture SOFY 11/26/24 Verified 14:43 Urine Bacterial SOFY 11/26/24 Verified Culture 14:43 Respiratory Culture SOFY 11/26/24 Verified W/ Gs 14:43 Vancomycin Per PHA 11/26/24 Verified Pharmacy 14:45 Metronidazole Ivpb PHA 11/26/24 Verified Flagyl 22:00 Metronidazole Ivpb PHA 11/26/24 Verified Flagyl 14:45 Clostridium Difficile SOFY 11/26/24 Verified Toxin 14:43 Admit ADMIT 11/26/24 Verified 14:43 Code Status CODE 11/26/24 Verified 14:43 0.9% Ns 1000 Ml PHA 11/26/24 Verified 14:45 Hydrocodone-Acet PHA 11/26/24 Verified 5/325mg Tab ([place] 14:45 Ondansetron Hcl PHA 11/26/24 Verified (Zofran) 14:45 Complete Blood Count LAB 11/27/24 Verified 04:00 Comprehensive LAB 11/27/24 Verified Metabolic Panel 04:00 Npo (Nothing By DIET 11/26/24 Verified Mouth) Diet Dinner Condition: Fair [place] 11/26/24 Verified 14:43 Acetaminophen Tablet PHA 11/26/24 Verified (Tylenol Tablet) 14:45 Morphine Sulfate PHA 11/26/24 Verified Injection 14:45 *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
[2024-11-26] MEDS ORDERED: hydrALAZINE HCL 20 MG/ML VL IV PRN (15:15)
[2024-11-26] MEDS ORDERED: VANCOMYCIN 1GM/250ML KIT 250 ML IV ONE (15:15)
[2024-11-26 15:21] LABS: HDL Cholesterol 42 mg/dL (40-59)
[2024-11-26 15:22] LABS: Cholesterol 269 mg/dL (< 200); Triglycerides 466 mg/dL (< 150)
[2024-11-26] MEDS: SODIUM CHLORIDE 0.9% 1,000 ML IV SCH (15:26)
[2024-11-26] MEDS: metroNIDAZOLE 500MG/100ML 100 ML IV ONE (15:26)
[2024-11-26 15:37] LABS: Cannabinoid Screen, Urine Pos (NEGATIVE)
[2024-11-26 15:39] LABS: Amphetamine Screen, Urine Pos (NEGATIVE); Barbiturate Scree,Urine Neg (NEGATIVE); Benzodiazephine Screen, Urine Neg (NEGATIVE); Cocaine Screen, Urine Neg (NEGATIVE); Opiate Scree,Urine Neg (NEGATIVE); Phencyclidine Screen, Urine Neg (NEGATIVE)
[2024-11-26] MEDS: MORPHINE SULFATE INJ 2 MG/ml SYRG IV PRN (15:39)
[2024-11-26] MEDS: INSULIN LANTUS (GLARGINE) 1 /0.01ml (100units/ml) SC ONE (15:40)
[2024-11-26 15:47] VITALS: PULSE 96; RESP 18; O2SAT 95
[2024-11-26] MEDS: VANCOMYCIN 1GM/250ML KIT 250 ML IV ONE (16:50)
[2024-11-26] MEDS: ACCU-CHEK COMFORT CURVE STRIP VI SCH (17:00)
[2024-11-26] MEDS: InsuLIN REG 1unit/0.01ml Soln (100units/ml) SC SCH (17:59)
[2024-11-26 20:00] VITALS: PULSE 89; RESP 18; O2SAT 100
[2024-11-26] MEDS: ONDANSETRON HCL 4 MG/2 ML VIAL IV PRN (20:53)
[2024-11-26] MEDS: metroNIDAZOLE 500MG/100ML 100 ML IV SCH (20:59)
[2024-11-26 21:00] VITALS: BP 145/85; PULSE 89; RESP 18; TEMP 98.1; O2SAT 100
[2024-11-26] MEDS: INSULIN LANTUS (GLARGINE) 1 /0.01ml (100units/ml) SC SCH (21:15)
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
[2024-11-27] VITALS (8 sets, daily range): BP systolic 116–149; BP diastolic 67–91; PULSE 77–90; RESP 16–18; TEMP 97.5–98.1; O2SAT 94–99
[2024-11-27] MEDS: SUCRALFATE 1 GM/10 ML ORAL SUSP PO SCH (06:13)
[2024-11-27 06:49] LABS: Basophils # (auto) 0 10 ^3/uL (0-0.2); Basophils % (auto) 0.3 % (0.0-2.0); Eosinophils # (auto) 0 10 ^3/uL (0-0.8); Hematocrit 44.9 % (41.0-53.0); Hemoglobin 15.3 g/dL (13.5-17.5); Lymphocytes # (auto) 1.5 10 ^3/uL (0.4-5.4); Lymphocytes % (auto) 9.7 % (10.0-50.0); Mean Corpuscular Hemoglobin 28.4 pg (28.0-32.0); Mean Corpuscular Hgb Conc. 34.1 g/dL (32.0-36.0); Mean Corpuscular Volume 83.3 fL (80.0-100.0); Monocytes # (auto) 0.9 10 ^3/uL (0-1.3); Monocytes % (auto) 6.2 % (0.0-12.0); Neutrophils # (auto) 12.5 10 ^3/uL (1.6-8.6); Neutrophils % (auto) 83.8 % (37.0-80.0); Nucleated Red Blood Cells % 0.1 %; Platelet Count (auto) 331 10^3/uL (140-450); Red Blood Cells 5.39 10^6/uL (4.5-5.90); Red Cell Distribution Width 14.2 % (11.8-14.3)
[2024-11-27 07:00] LABS: Alkaline Phosphatase 95 U/L (46-116); Anion Gap 12 (5-15); BUN/Creatinine Ratio 19.2 (10.0-20.0); Calcium 9.8 mg/dL (8.7-10.4); Carbon Dioxide 23 mmol/L (20-31); Chloride 102 mmol/L (98-107); Potassium 3.9 mmol/L (3.5-5.1); Sodium 137 mmol/L (136-145); Total Protein 7.5 g/dL (5.7-8.2)
[2024-11-27 07:01] LABS: Albumin 4.4 g/dL (3.2-4.8); Bilirubin, Total 0.8 mg/dL (0.2-1.0)
[2024-11-27 07:05] LABS: Aspartate Aminotransferase 112 U/L (13-40); Blood Urea Nitrogen 30 mg/dL (9-23); Glucose 213 mg/dL (74-106)
[2024-11-27 07:06] LABS: Alanine Aminotransferase 55 U/L (7-40)
[2024-11-27 07:09] LABS: INR 1.02 (0.9-1.15); Partial Thromboplastin Time 24.3 SEC (24.5-34.5); Prothrombin Time 10.8 sec (9.3-11.8)
[2024-11-27] MEDS: PANTOPRAZOLE 40 MG/10 ML VIAL INJ IV SCH (09:05)
--- NOTE | 2024-11-27 09:58 | DVHINCON2 ---
Date of service: Nov 27, 2024 Referring Physician Melissa Fontaine, nurse practitioner Reason for Consultation Acute kidney injury History of Present Illness Patient is 44-year-old male with past medical history significant for DM, GERD, High Lipids, HTN, PUD methamphetamine abuse is admitted for diffuse abdominal pain associated with nausea vomiting and hematemesis for three days. On admission patient found to have elevated BUN and creatinine nephrology is consulted for acute kidney injury Past Medical History PAST MEDICAL HISTORY: DM, GERD, High Lipids, HTN, PUD Methamphetamine abuse Past Surgical History Surgical History: Denies all surgeries Allergies: Coded Allergies: NO KNOWN ALLERGIES (Unverified , 09/21/20) Home Meds Active Scripts Sucralfate (CARAFATE SUSP) 1 Gm/10 Ml Ss, 1 GM PO BID@0600,2200 for 14 Days, #10 ML Prov:VEE SPANN RESIDENT 09/09/24 Pantoprazole Sodium Sesquihydr (Pantoprazole Sodium) 40 Mg Tab, 40 MG PO DAILY for 30 Days, #30 TAB 2 Refills Prov:EVE SPANN RESIDENT 09/09/24 Metoclopramide Hcl (Reglan) 5 Mg Tab, 5 MG PO DAILY PRN for 30 Days, #30 TAB Prov:DEBBIE BARRAGAN RESIDENT 08/08/24 Insulin Glargine (Lantus) 100 Unit/Ml Inj, 80 UNIT SC HS for 96 Days, #10 ML 1 Refill Prov:ROGELIO COBB MD 06/12/24 Reported Medications Sucralfate (Sucralfate) 1 Gm Tab, 1 TAB PO BID 11/26/24 Current Medications Current Medications Medications (Trade) Dose Ordered Sig/Adina Route PRN Reason Start Time Stop Time Status Last Admin Diagnostic Test (Pha) (Accu-Chek Comfort Curve T) 1 strip ACHS 11/26/24 17:00 11/27/24 11:10 Insulin Human Regular (InsuLIN R) ACHS SC 11/26/24 17:00 11/27/24 11:10 Dextrose 50 ml UD PRN IV Blood Sugar LESS THAN 60 11/26/24 14:45 Insulin Glargine (Lantus) 14 units BID@0700,2200 SC 11/26/24 22:00 11/27/24 06:15 Vancomycin HCl 0 ml @ 0 mls/hr UD IV 11/26/24 14:45 11/27/24 10:51 DC Metronidazole 100 ml @ 100 mls/hr Q8HR IV 11/26/24 22:00 11/27/24 05:58 Sodium Chloride 1,000 ml @ 100 mls/hr Q10H IV 11/26/24 14:45 11/27/24 09:06 Acetaminophen/ Hydrocodone Bitart ([place] 5/325MG Tab) 1 tab Q4HP PRN PO MODERATE PAIN (4-6 PAIN SCALE) 11/26/24 14:45 Ondansetron HCl (Zofran) 4 mg Q4HP PRN IV NAUSEA / VOMITING 11/26/24 14:45 11/27/24 05:56 Acetaminophen (Tylenol Tablet) 650 mg Q6HP PRN PO PAIN SCALE 1-3 OR TEMP>100.4 11/26/24 14:45 Morphine Sulfate 2 mg Q4HPRN PRN IV SEVERE PAIN (7-10 PAIN SCALE) 11/26/24 14:45 11/27/24 10:48 Hydralazine HCl (Apresoline Injection) 10 mg Q6HP PRN IV SBP>150 11/26/24 15:15 Pantoprazole Sodium (Protonix) 40 mg BID IV 11/27/24 10:00 11/27/24 09:05 Sucralfate (Carafate Susp) 1 gm QID@0600,1130,1700,2200 PO 11/27/24 06:00 11/27/24 10:48 Ceftriaxone Sodium 50 ml @ 100 mls/hr DAILY@09 IV 11/28/24 09:00 Family History: Alzheimer's disease G8 FATHER Diabetes mellitus G8 BROTHER FH: lung cancer G8 MOTHER, Onset:Unknown Review of Systems All 12 item review of systems reviewed with the patient nonsignificant except what is mentioned in the history of present illness H&P Exam Vital Signs/I&O Vital Sign Date Time Temp Pulse Resp B/P (MAP) Pulse Ox O2 Delivery O2 Flow Rate FiO2 11/27/24 13:00 77 17 139/74 (95) 97 11/27/24 07:57 Room Air* 0 21 11/27/24 05:00 97.5 97.5 Intake and Output 11/26/24 11/27/24 19:00 07:00 Intake Total 2300 ml 200 ml Balance 2300 ml 200 ml Intake Oral 0 ml IV Total 2300 ml 200 ml Physical Exam Patient is awake alert Lungs clear to auscultation bilaterally Cardiac exam regular rate and rhythm GI soft nontender normal Extremities no clubbing cyanosis or edema Neuro nonfocal Labs/Diagnostic Data Labs/Diagnostic Data Laboratory Tests Test 11/27/24 10:55 11/27/24 10:37 11/27/24 06:25 11/27/24 06:04 Range/Units POC Glucose 181 H 209 H 70-106 mg/dl Erythrocyte Sedimentation Rate 4 0-20 mm/hr B-Type Natriuretic Peptide 15.61 0-100 pg/mL Parathyroid Hormone (Intact) 107.1 H 18.4-80.1 pg/mL White Blood Count 15.0 #H 4.4-10.8 10^3/uL Red Blood Count 5.39 4.5-5.90 10^6/uL Hemoglobin 15.3 13.5-17.5 g/dL Hematocrit 44.9 # 41.0-53.0 % Mean Corpuscular Volume 83.3 80.0-100.0 fL Mean Corpuscular Hemoglobin 28.4 28.0-32.0 pg Mean Corpuscular Hemoglobin Concent 34.1 32.0-36.0 g/dL Red Cell Distribution Width 14.2 11.8-14.3 % Platelet Count 331 140-450 10^3/uL Mean Platelet Volume 7.1 6.9-10.8 fL Neutrophils (%) (Auto) 83.8 H 37.0-80.0 % Lymphocytes (%) (Auto) 9.7 L 10.0-50.0 % Monocytes (%) (Auto) 6.2 0.0-12.0 % Eosinophils (%) (Auto) 0.0 0.0-7.0 % Basophils (%) (Auto) 0.3 0.0-2.0 % Neutrophils # (Auto) 12.5 H 1.6-8.6 10 ^3/uL Lymphocytes # (Auto) 1.5 0.4-5.4 10 ^3/uL Monocytes # (Auto) 0.9 0-1.3 10 ^3/uL Eosinophils # (Auto) 0 0-0.8 10 ^3/uL Basophils # (Auto) 0 0-0.2 10 ^3/uL Nucleated Red Blood Cells 0.1 % Prothrombin Time 10.8 9.3-11.8 sec Prothrombin Time INR 1.02 0.9-1.15 Activated Partial Thromboplast Time 24.3 L 24.5-34.5 SEC Sodium Level 137 # 136-145 mmol/L Potassium Level 3.9 3.5-5.1 mmol/L Chloride Level 102 # 98-107 mmol/L Carbon Dioxide Level 23 20-31 mmol/L Anion Gap 12 5-15 Blood Urea Nitrogen 30 #H 9-23 mg/dL Creatinine 1.56 H 0.700-1.30 mg/dL Glomerular Filtration Rate Calc 55 >90 mL/min BUN/Creatinine Ratio 19.2 10.0-20.0 Serum Glucose 213 #H 74-106 mg/dL Uric Acid 6.0 3.7-9.2 mg/dL Calcium Level 9.8 8.7-10.4 mg/dL Phosphorus Level 2.9 2.4-5.1 mg/dL Magnesium Level 2.7 H 1.6-2.6 mg/dL Total Bilirubin 0.8 0.2-1.0 mg/dL Aspartate Amino Transferase (AST) 112 H 13-40 U/L Alanine Aminotransferase (ALT) 55 H 7-40 U/L Alkaline Phosphatase 95 46-116 U/L Creatine Kinase 3873 H 46-171 U/L C-Reactive Protein High Sensitivity 0.45 <1.0 mg/dL Total Protein 7.5 5.7-8.2 g/dL Albumin 4.4 3.2-4.8 g/dL Vitamin D 25-Hydroxy 20.2 L 30.0-100 ng/mL Random Vancomycin Level < 3.0 L 5-10 ug/mL Test 11/26/24 21:05 11/26/24 17:44 11/26/24 15:44 11/26/24 15:40 Range/Units POC Glucose 292 H 355 H 328 H 70-106 mg/dl Lactic Acid Level 1.9 0.4-2.0 mmol/L Test 11/26/24 12:41 11/26/24 11:55 11/26/24 10:40 11/26/24 09:50 Range/Units Troponin I High Sensitivity 39 44 55 *H </=54 ng/L Urine Color Light-yellow Yellow Urine Clarity Clear Clear Urine pH 5.5 5.0-9.0 Urine Specific [place] 1.028 1.001-1.035 Urine Protein 1+ H Negative Urine Ketones Negative Negative Urine Blood 3+ H Negative /uL Urine Nitrite Negative Negative Urine Bilirubin Negative Negative Urine Urobilinogen Normal Negative mg/dL Urine Leukocyte Esterase Negative Negative /uL Urine RBC 1 0 - 3 /hpf Urine Microscopic WBC < 1 0-3 /HPF Urine Squamous Epithelial Cells Few <5 /hpf Urine Bacteria Few H None Seen /hpf Urine Glucose 4+ H Normal mg/dL Urine Opiates Screen Neg NEGATIVE Urine Fentanyl Screen Neg NEGATIVE Urine Barbiturates Screen Neg NEGATIVE Urine Phencyclidine Screen Neg NEGATIVE Urine Amphetamines Screen Pos NEGATIVE Urine Benzodiazepines Screen Neg NEGATIVE Urine Cocaine Screen Neg NEGATIVE Urine Cannabinoids Screen Pos NEGATIVE White Blood Count 25.2 H 4.4-10.8 10^3/uL Red Blood Count 6.31 H 4.5-5.90 10^6/uL Hemoglobin 17.7 H 13.5-17.5 g/dL Hematocrit 53.2 H 41.0-53.0 % Mean Corpuscular Volume 84.2 80.0-100.0 fL Mean Corpuscular Hemoglobin 28.0 28.0-32.0 pg Mean Corpuscular Hemoglobin Concent 33.3 32.0-36.0 g/dL Red Cell Distribution Width 14.9 H 11.8-14.3 % Platelet Count 478 H 140-450 10^3/uL Mean Platelet Volume 7.6 6.9-10.8 fL Neutrophils (%) (Auto) 85.4 H 37.0-80.0 % Lymphocytes (%) (Auto) 7.1 L 10.0-50.0 % Monocytes (%) (Auto) 7.1 0.0-12.0 % Eosinophils (%) (Auto) 0.0 0.0-7.0 % Basophils (%) (Auto) 0.4 0.0-2.0 % Neutrophils # (Auto) 21.5 H 1.6-8.6 10 ^3/uL Lymphocytes # (Auto) 1.8 0.4-5.4 10 ^3/uL Monocytes # (Auto) 1.8 H 0-1.3 10 ^3/uL Eosinophils # (Auto) 0 0-0.8 10 ^3/uL Basophils # (Auto) 0.1 0-0.2 10 ^3/uL Nucleated Red Blood Cells 0.1 % Sodium Level 125 L 136-145 mmol/L Potassium Level 3.8 3.5-5.1 mmol/L Chloride Level 85 L 98-107 mmol/L Carbon Dioxide Level 27 20-31 mmol/L Anion Gap 13 5-15 Blood Urea Nitrogen 52 H 9-23 mg/dL Creatinine 3.26 H 0.700-1.30 mg/dL Glomerular Filtration Rate Calc 23 >90 mL/min BUN/Creatinine Ratio 16.0 10.0-20.0 Serum Glucose 571 *H 74-106 mg/dL Hemoglobin A1c 9.4 H <5.7 % A1C Calcium Level 11.1 H 8.7-10.4 mg/dL Total Bilirubin 1.3 H 0.2-1.0 mg/dL Aspartate Amino Transferase (AST) 134 H 13-40 U/L Alanine Aminotransferase (ALT) 58 H 7-40 U/L Alkaline Phosphatase 139 H 46-116 U/L Total Protein 9.8 H 5.7-8.2 g/dL Albumin 5.9 H 3.2-4.8 g/dL Triglycerides Level 466 H < 150 mg/dL Cholesterol Level 269 H < 200 mg/dL LDL Cholesterol < 100 mg/dL HDL Cholesterol 42 40-59 mg/dL Lipase 31 12-53 U/L Assessment Acute kidney injury superimposed 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 I discussed my plan of care with the patient and primary nurse at the bedside I would like to thank Melissa for the consult, will follow up Plan discussed with: Patient YURIY RAMON MD Nov 27, 2024 09:58
[2024-11-27 10:13] LABS: Phosphorus 2.9 mg/dL (2.4-5.1)
[2024-11-27 10:47] LABS: Magnesium 2.7 mg/dL (1.6-2.6)
[2024-11-27] MEDS ORDERED: SODIUM CHLORIDE LOCK 0 ML ONE (11:02)
[2024-11-27] MEDS ORDERED: diphenhdrAMINE HCL 50 MG/1 ML VL ONE (11:02)
[2024-11-27] MEDS ORDERED: LIDOCAINE VISCOUS 2% 15ML UD ONE (11:02)
[2024-11-27] MEDS ORDERED: MIDAZOLAM HCL 5 MG/ML-1ML VIAL ONE (11:02)
[2024-11-27] MEDS ORDERED: fentaNYL CITRATE 100 MCG/2 ML VL ONE (11:03)
[2024-11-27 12:20] LABS: Erythrocyte Sedimentation Rate 4 mm/hr (0-20)
--- NOTE | 2024-11-27 13:55 | DVHPNRES ---
Progress Note Date Seen: Nov 27, 2024 Resident Creating Document: COREEN BULLARD RESIDENT Has the PT tested + for MRSA If YES, has PT been informed?: No Medical Necessity Reason Pt with a Central, PICC or Fol: No Subjective Review of Systems This 44-year-old male with past medical history of diabetes, hypertension, hyperlipidemia,PUD, GERD, gastritis, marijuana use presents in the ED with a chief complaint of abdominal pain. The patient reports abdominal pain associated with nausea, vomiting, hematemesis, and melena started three days ago. In the emergency department the patient was found to have hyperglycemia with A1c of 9.4. The patient reports currently taking Lantus and Humalog. Patient denies lightheadedness, syncope, chest pain, or other acute symptoms. Objective vital signs Vital Sign Date Time Temp Pulse Resp B/P (MAP) Pulse Ox O2 Delivery O2 Flow Rate FiO2 11/27/24 13:00 77 17 139/74 (95) 97 11/27/24 07:57 Room Air* 0 21 11/27/24 05:00 97.5 97.5 Total Intake and Output 11/26/24 11/26/24 11/27/24 15:00 23:00 07:00 Intake Total 2100 ml 300 ml 100 ml Balance 2100 ml 300 ml 100 ml medications Current Medications Medications Dose Ordered Sig/Adina Route Start Time Stop Time Status Last Admin Dose Admin Diagnostic Test (Pha) 1 strip ACHS 11/26/24 17:00 11/27/24 11:10 1 STRIP Insulin Human Regular ACHS SC 11/26/24 17:00 11/27/24 11:10 3 UNITS Dextrose 50 ml UD PRN IV 11/26/24 14:45 Insulin Glargine 14 units BID@0700,2200 SC 11/26/24 22:00 11/27/24 06:15 14 UNITS Metronidazole 100 ml @ 100 mls/hr Q8HR IV 11/26/24 22:00 11/27/24 13:31 100 MLS/HR Sodium Chloride 1,000 ml @ 100 mls/hr Q10H IV 11/26/24 14:45 11/27/24 09:06 100 MLS/HR Acetaminophen/ Hydrocodone Bitart 1 tab Q4HP PRN PO 11/26/24 14:45 Ondansetron HCl 4 mg Q4HP PRN IV 11/26/24 14:45 11/27/24 05:56 4 MG Acetaminophen 650 mg Q6HP PRN PO 11/26/24 14:45 Morphine Sulfate 2 mg Q4HPRN PRN IV 11/26/24 14:45 11/27/24 10:48 2 MG Hydralazine HCl 10 mg Q6HP PRN IV 11/26/24 15:15 Pantoprazole Sodium 40 mg BID IV 11/27/24 10:00 11/27/24 09:05 40 MG Sucralfate 1 gm QID@0600,1130,1700,2200 PO 11/27/24 06:00 11/27/24 10:48 1 GM Ceftriaxone Sodium 50 ml @ 100 mls/hr DAILY@09 IV 11/28/24 09:00 Examination General Appearance: Alert, Oriented X3, Cooperative, mild distress HEENT: Atraumatic, PERRLA, EOMI, Mucous membr. moist/pink Respiratory: Clear to auscultation, Normal air movement Cardiovascular: Regular rate, Normal S1, Normal S2 Abdominal: Normal bowel sounds, Soft, No tenderness Extremities: No clubbing, No cyanosis, No edema, Normal pulses Skin: No rashes, No breakdown, No significant lesion Neuro: Normal speech, Normal tone Psych/Mental Status: Mental status NL laboratory and microbiology Laboratory Tests 11/27/24 06:25 Test 11/27/24 06:25 Range/Units Serum Glucose 213 #H 74-106 mg/dL Microbiology Date/Time Source Procedure Growth Status 11/26/24 11:55 Voided Urine Urine Culture - Preliminary Resulted Problem List/Assessment/Plan Problem List/Assessment/Plan #GI bleeding? #Hematemesis #Sepsis? #RYNE due to VMN on possible CKD #Possible HHS #Uncontrolled diabetes type 2 #NSTEMI type 2 #Hyperlipidemia #Hyperparathyrodism - secondary CKD NPO Pending EDS GI and nephrology on board IV fluids 100 cc/h DC vanco due to RYNE Ceftriaxone + metronidazole IV: crp and esr neg Lantus 14 UI BID Continue protonix IV and sucralfate PO Amlodipine PO Pending TSH and vit d levels Case discussed with Dr Perry Plan discussed with: Patient, Other My Orders My Orders Orders - COREEN BULLARD RESIDENT Procedure Category Date Status Time Covid19 Antigen [facility] 11/27/24 Logged Rapid Influenza A&B LAB 11/27/24 Logged 08:51 Ceftriaxone 1gm/50ml PHA 11/28/24 In Process D5w (Rocephin) 09:00 Date of Service: Nov 27, 2024 Billing Provider: LORRAINE PERRY MD Common Visit Codes: [id number] INP/OBS CARE(HIGH) COREEN BULLARD RESIDENT Nov 27, 2024 13:55 LORRAINE PERRY MD Nov 28, 2024 01:55
--- NOTE | 2024-11-27 14:34 | DVHPN2 ---
Progress Note - Dictate Date Seen: Nov 27, 2024 Has the PT tested + for MRSA If YES, has PT been informed?: No Medical Necessity Reason Pt with a Central, PICC or Fol: No Subjective Patient was tentatively scheduled for an endoscopy today However the patient has been refusing to have an endoscopy since yesterday. Patient wants to eat and does not want a repeat endoscopy at this time There was no further episodes of nausea vomiting or upper GI bleeding. Hemoglobin is stable at 15 vital signs Vital Sign Date Time Temp Pulse Resp B/P (MAP) Pulse Ox O2 Delivery O2 Flow Rate FiO2 11/27/24 13:00 77 17 139/74 (95) 97 11/27/24 07:57 Room Air* 0 21 11/27/24 05:00 97.5 97.5 Total Intake and Output 11/26/24 11/26/24 11/27/24 14:59 22:59 06:59 Intake Total 2100 ml 300 ml 100 ml Balance 2100 ml 300 ml 100 ml medications Current Medications Medications Dose Ordered Sig/Adina Route Start Time Stop Time Status Last Admin Dose Admin Diagnostic Test (Pha) 1 strip ACHS 11/26/24 17:00 11/27/24 11:10 1 STRIP Insulin Human Regular ACHS SC 11/26/24 17:00 11/27/24 11:10 3 UNITS Dextrose 50 ml UD PRN IV 11/26/24 14:45 Insulin Glargine 14 units BID@0700,2200 SC 11/26/24 22:00 11/27/24 06:15 14 UNITS Metronidazole 100 ml @ 100 mls/hr Q8HR IV 11/26/24 22:00 11/27/24 13:31 100 MLS/HR Sodium Chloride 1,000 ml @ 100 mls/hr Q10H IV 11/26/24 14:45 11/27/24 09:06 100 MLS/HR Acetaminophen/ Hydrocodone Bitart 1 tab Q4HP PRN PO 11/26/24 14:45 Ondansetron HCl 4 mg Q4HP PRN IV 11/26/24 14:45 11/27/24 05:56 4 MG Acetaminophen 650 mg Q6HP PRN PO 11/26/24 14:45 Morphine Sulfate 2 mg Q4HPRN PRN IV 11/26/24 14:45 11/27/24 10:48 2 MG Pantoprazole Sodium 40 mg BID IV 11/27/24 10:00 11/27/24 09:05 40 MG Sucralfate 1 gm QID@0600,1130,1700,2200 PO 11/27/24 06:00 11/27/24 10:48 1 GM Ceftriaxone Sodium 50 ml @ 100 mls/hr DAILY@09 IV 11/28/24 09:00 Amlodipine Besylate 5 mg DAILY PO 11/28/24 10:00 objective Patient is awake alert Lungs clear to auscultation bilaterally Cardiac exam regular rate and rhythm GI soft nontender normal Extremities no clubbing cyanosis or edema Neuro nonfocal laboratory and microbiology Laboratory Tests 11/27/24 06:25 Test 11/27/24 06:25 Range/Units Serum Glucose 213 #H 74-106 mg/dL Problems(with codes): (1) Nausea with vomiting, unspecified (2) Upper GI bleed (3) Gastritis (4) Cyclical vomiting syndrome (5) Renal failure (6) Uncontrolled type 2 DM with hyperosmolar nonketotic hyperglycemia (7) Leukocytosis, unspecified (8) Rhabdomyolysis Prognosis Plan Patient has a history of noncompliance and previous refusal to procedures and also leaving AMA Continue supportive care at this time I will cancel EGD as per patient request Protonix 40 mg p.o. twice a day Carafate 1 g 4 times a day DC aspirin NSAIDs marijuana smoking amphetamines Outpatient follow up with GI Services as needed Start full liquid diet advance as tolerated Plan discussed with: Other (Nurse) ANGEL PONCE MD Nov 27, 2024 14:34
[2024-11-27 14:42] LABS: Protein, Urine 42.2 mg/dL (1-14)
[2024-11-27 14:45] LABS: Creatinine, Urine 113.54 mg/dL (30.0-125.0); Urine Protein/Creatinine Ratio 0.37
[2024-11-27 15:31] LABS: Free T3 2.81 pg/mL (2.3-4.2); Free T4 (Free Thyroxine) 1.35 ng/dL (0.89-1.76)
[2024-11-27 16:52] LABS: COVID19 ANTIGEN SOFIA FIA NEGATIVE (NEGATIVE); Rapid Influenza A Negative (Negative); Rapid Influenza B Negative (Negative)
[2024-11-28 01:00] VITALS: BP 157/84; PULSE 74; RESP 20; O2SAT 98
[2024-11-28 05:00] VITALS: BP 174/83; PULSE 77; RESP 20; O2SAT 98
[2024-11-28 06:57] LABS: Albumin 3.9 g/dL (3.2-4.8); Alkaline Phosphatase 77 U/L (46-116); Anion Gap 7 (5-15); BUN/Creatinine Ratio 17.1 (10.0-20.0); Blood Urea Nitrogen 19 mg/dL (9-23); Carbon Dioxide 28 mmol/L (20-31); Chloride 100 mmol/L (98-107); Glucose 103 mg/dL (74-106); Total Protein 6.5 g/dL (5.7-8.2)
[2024-11-28 06:59] LABS: Alanine Aminotransferase 52 U/L (7-40); Aspartate Aminotransferase 87 U/L (13-40); Potassium 3.4 mmol/L (3.5-5.1); Sodium 135 mmol/L (136-145)
[2024-11-28 07:03] LABS: Basophils # (auto) 0 10 ^3/uL (0-0.2); Basophils % (auto) 0.1 % (0.0-2.0); Eosinophils # (auto) 0 10 ^3/uL (0-0.8); Eosinophils % (auto) 0.2 % (0.0-7.0); Hematocrit 39.3 % (41.0-53.0); Hemoglobin 13.7 g/dL (13.5-17.5); Lymphocytes # (auto) 1.6 10 ^3/uL (0.4-5.4); Lymphocytes % (auto) 15.9 % (10.0-50.0); Mean Corpuscular Hemoglobin 29.2 pg (28.0-32.0); Mean Corpuscular Hgb Conc. 34.8 g/dL (32.0-36.0); Mean Corpuscular Volume 83.9 fL (80.0-100.0); Monocytes # (auto) 0.8 10 ^3/uL (0-1.3); Monocytes % (auto) 7.8 % (0.0-12.0); Neutrophils # (auto) 7.4 10 ^3/uL (1.6-8.6); Nucleated Red Blood Cells % 0.1 %; Platelet Count (auto) 314 10^3/uL (140-450); Red Blood Cells 4.69 10^6/uL (4.5-5.90); Red Cell Distribution Width 13.6 % (11.8-14.3); White Blood Cell 9.8 10^3/uL (4.4-10.8)
[2024-11-28] MEDS: ERGOCALCIFEROL 50,000 UNIT(1.25MG) CAP PO SCH (07:22)
[2024-11-28 08:00] VITALS: RESP 16
[2024-11-28] MEDS: cefTRIAXone 1GM/50ML D5W 50 ML IV SCH (08:45)
[2024-11-28] MEDS: POTASSIUM CHL 20 Meq TABLET PO ONE ×2 (08:46→10:27)
[2024-11-28 09:51] VITALS: BP 163/97; PULSE 79; RESP 18; TEMP 98.3; O2SAT 100
[2024-11-28] MEDS: amLODIPine BESYLATE 5 MG TAB PO SCH (10:27)
[2024-11-28] MEDS ORDERED: SUCR1TAB PO (10:51)
[2024-11-28] MEDS ORDERED: PANT40T PO (10:51)
[2024-11-28] MEDS ORDERED: AML5T PO (10:51)
[2024-11-28] MEDS ORDERED: LEVO500T91 PO (10:51)
[2024-11-28] MEDS ORDERED: ACET-1882 PO (10:51)
--- NOTE | 2024-11-28 10:56 | DVHPN2 ---
Progress Note Date Seen: Nov 28, 2024 Has the PT tested + for MRSA If YES, has PT been informed?: No Medical Necessity Reason Pt with a Central, PICC or Fol: No Subjective Review of Systems: GI:Abnormal Other Systems: Patient seen and examined by myself today in follow-up Objective vital signs Vital Sign Date Time Temp Pulse Resp B/P (MAP) Pulse Ox O2 Delivery O2 Flow Rate FiO2 11/28/24 10:27 163/97 11/28/24 10:27 79 18 11/28/24 09:51 98.3 100 98.3 11/28/24 08:00 Room Air* 0 21 Total Intake and Output 11/27/24 11/27/24 11/28/24 15:00 23:00 07:00 Intake Total 100 ml 500 ml 400 ml Output Total 800 ml Balance 100 ml 500 ml -400 ml medications Current Medications Medications Dose Ordered Sig/Adina Route Start Time Stop Time Status Last Admin Dose Admin Diagnostic Test (Pha) 1 strip ACHS 11/26/24 17:00 11/28/24 07:05 1 STRIP Insulin Human Regular ACHS SC 11/26/24 17:00 11/27/24 22:33 2 UNITS Dextrose 50 ml UD PRN IV 11/26/24 14:45 Insulin Glargine 14 units BID@0700,2200 SC 11/26/24 22:00 11/28/24 07:03 14 UNITS Metronidazole 100 ml @ 100 mls/hr Q8HR IV 11/26/24 22:00 11/28/24 05:39 100 MLS/HR Sodium Chloride 1,000 ml @ 100 mls/hr Q10H IV 11/26/24 14:45 11/27/24 09:06 100 MLS/HR Acetaminophen/ Hydrocodone Bitart 1 tab Q4HP PRN PO 11/26/24 14:45 Ondansetron HCl 4 mg Q4HP PRN IV 11/26/24 14:45 11/28/24 10:32 4 MG Acetaminophen 650 mg Q6HP PRN PO 11/26/24 14:45 Morphine Sulfate 2 mg Q4HPRN PRN IV 11/26/24 14:45 11/28/24 10:27 2 MG Pantoprazole Sodium 40 mg BID IV 11/27/24 10:00 11/28/24 10:26 40 MG Sucralfate 1 gm QID@0600,1130,1700,2200 PO 11/27/24 06:00 11/28/24 10:26 1 GM Ceftriaxone Sodium 50 ml @ 100 mls/hr DAILY@09 IV 11/28/24 09:00 11/28/24 08:45 100 MLS/HR Amlodipine Besylate 5 mg DAILY PO 11/28/24 10:00 11/28/24 10:27 5 MG Ergocalciferol 50,000 unit Q7D PO 11/28/24 06:30 11/28/24 07:22 50,000 UNIT Examination: LUNGS:Normal, CVS:Normal, MSK:Normal laboratory and microbiology Laboratory Tests 11/28/24 06:15 Test 11/28/24 06:15 Range/Units Serum Glucose 103 # 74-106 mg/dL Microbiology Date/Time Source Procedure Growth Status 11/26/24 15:40 Blood Blood Culture - Preliminary NO GROWTH AFTER 24 HOURS OF INCUBATION. 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
--- NOTE | 2024-11-28 10:59 | DVHDSRES ---
Discharge Summary Date of Admission Resident Creating Document: COREEN BULLARD RESIDENT Nov 26, 2024 at 14:43 Date of Discharge: Nov 28, 2024 Admitting Diagnosis GI bleeding Labs/Diagnostic Data: Laboratory Results Test 11/28/24 06:15 11/28/24 05:46 11/27/24 16:25 11/27/24 14:12 White Blood Count 9.8 10^3/uL (4.4-10.8) Red Blood Count 4.69 10^6/uL (4.5-5.90) Hemoglobin 13.7 g/dL (13.5-17.5) Hematocrit 39.3 % (41.0-53.0) Mean Corpuscular Volume 83.9 fL (80.0-100.0) Mean Corpuscular Hemoglobin 29.2 pg (28.0-32.0) Mean Corpuscular Hemoglobin Concent 34.8 g/dL (32.0-36.0) Red Cell Distribution Width 13.6 % (11.8-14.3) Platelet Count 314 10^3/uL (140-450) Mean Platelet Volume 7.4 fL (6.9-10.8) Neutrophils (%) (Auto) 76.0 % (37.0-80.0) Lymphocytes (%) (Auto) 15.9 % (10.0-50.0) Monocytes (%) (Auto) 7.8 % (0.0-12.0) Eosinophils (%) (Auto) 0.2 % (0.0-7.0) Basophils (%) (Auto) 0.1 % (0.0-2.0) Neutrophils # (Auto) 7.4 10 ^3/uL (1.6-8.6) Lymphocytes # (Auto) 1.6 10 ^3/uL (0.4-5.4) Monocytes # (Auto) 0.8 10 ^3/uL (0-1.3) Eosinophils # (Auto) 0 10 ^3/uL (0-0.8) Basophils # (Auto) 0 10 ^3/uL (0-0.2) Nucleated Red Blood Cells 0.1 % Sodium Level 135 mmol/L (136-145) Potassium Level 3.4 mmol/L (3.5-5.1) Chloride Level 100 mmol/L (98-107) Carbon Dioxide Level 28 mmol/L (20-31) Anion Gap 7 (5-15) Blood Urea Nitrogen 19 mg/dL (9-23) Creatinine 1.11 mg/dL (0.700-1.30) Glomerular Filtration Rate Calc 83 mL/min (>90) BUN/Creatinine Ratio 17.1 (10.0-20.0) Serum Glucose 103 mg/dL (74-106) Calcium Level 9.0 mg/dL (8.7-10.4) Total Bilirubin 1.0 mg/dL (0.2-1.0) Aspartate Amino Transferase (AST) 87 U/L (13-40) Alanine Aminotransferase (ALT) 52 U/L (7-40) Alkaline Phosphatase 77 U/L (46-116) Creatine Kinase 1505 U/L (46-171) Total Protein 6.5 g/dL (5.7-8.2) Albumin 3.9 g/dL (3.2-4.8) Vitamin D 25-Hydroxy 15.1 ng/mL (30.0-100) POC Glucose 108 mg/dl (70-106) Influenza Type A Antigen Negative (Negative) Influenza Type B Antigen Negative (Negative) SARS-CoV-2 Antigen (Rapid) Negative (NEGATIVE) Urine Creatinine 113.54 mg/dL (30.0-125.0) Urine Protein/Creatinine Ratio 0.37 Urine Sodium 19 mmol/L (40-220) Urine Total Protein 42.2 mg/dL (1-14) Test 11/27/24 10:37 11/27/24 06:25 11/26/24 15:40 11/26/24 12:41 Erythrocyte Sedimentation Rate 4 mm/hr (0-20) B-Type Natriuretic Peptide 15.61 pg/mL (0-100) Parathyroid Hormone (Intact) 107.1 pg/mL (18.4-80.1) Prothrombin Time 10.8 sec (9.3-11.8) Prothrombin Time INR 1.02 (0.9-1.15) Activated Partial Thromboplast Time 24.3 SEC (24.5-34.5) Uric Acid 6.0 mg/dL (3.7-9.2) Phosphorus Level 2.9 mg/dL (2.4-5.1) Magnesium Level 2.7 mg/dL (1.6-2.6) C-Reactive Protein High Sensitivity 0.45 mg/dL (<1.0) Thyroid Stimulating Hormone (TSH) 0.42 uIU/mL (0.55-4.78) Free Thyroxine (T4) Calculated 1.35 ng/dL (0.89-1.76) Free Triiodothyronine (T3) pg/mL 2.81 pg/mL (2.3-4.2) Random Vancomycin Level < 3.0 ug/mL (5-10) Lactic Acid Level 1.9 mmol/L (0.4-2.0) Troponin I High Sensitivity 39 ng/L (</=54) Test 11/26/24 11:55 11/26/24 09:50 Urine Color Light-yellow (Yellow) Urine Clarity Clear (Clear) Urine pH 5.5 (5.0-9.0) Urine Specific [place]man 1.028 (1.001-1.035) Urine Protein 1+ (Negative) Urine Ketones Negative (Negative) Urine Blood 3+ /uL (Negative) Urine Nitrite Negative (Negative) Urine Bilirubin Negative (Negative) Urine Urobilinogen Normal mg/dL (Negative) Urine Leukocyte Esterase Negative /uL (Negative) Urine RBC 1 /hpf (0 - 3) Urine Microscopic WBC < 1 /HPF (0-3) Urine Squamous Epithelial Cells Few /hpf (<5) Urine Bacteria Few /hpf (None Seen) Urine Glucose 4+ mg/dL (Normal) Urine Opiates Screen Neg (NEGATIVE) Urine Fentanyl Screen Neg (NEGATIVE) Urine Barbiturates Screen Neg (NEGATIVE) Urine Phencyclidine Screen Neg (NEGATIVE) Urine Amphetamines Screen Pos (NEGATIVE) Urine Benzodiazepines Screen Neg (NEGATIVE) Urine Cocaine Screen Neg (NEGATIVE) Urine Cannabinoids Screen Pos (NEGATIVE) Hemoglobin A1c 9.4 % A1C (<5.7) Triglycerides Level 466 mg/dL (< 150) Cholesterol Level 269 mg/dL (< 200) LDL Cholesterol mg/dL (< 100) HDL Cholesterol 42 mg/dL (40-59) Lipase 31 U/L (12-53) Other Laboratory Tests 11/28/24 06:15 Brief Hx & Hospital Course: A 44-year-old male with a past medical history of diabetes mellitus type 2, hypertension, hyperlipidemia, peptic ulcer disease, GERD, and marijuana use presented with abdominal pain associated with nausea, vomiting, hematemesis, and melena for three days. Initial workup in the emergency department revealed hyperglycemia with an A1c of 9.4. During hospitalization, he was managed for suspected gastrointestinal bleeding and possible hyperosmolar hyperglycemic state (HHS). The patient was placed NPO and GI and nephrology were consulted. Laboratory studies were significant for acute kidney injury (RYNE) likely due to volume depletion on a background of possible CKD. Empiric IV fluids were initiated at 100 cc/hr. He was also treated for possible sepsis with IV ceftriaxone and metronidazole; however, CRP and ESR were negative. Endoscopy was planned but the patient refused EGD, opting for outpatient follow- up instead, hb stable. His RYNE showed improvement with hydration. Vitamin D levels were found to be low. Discharge Plan: Medications: Continue Protonix and sucralfate PO Amlodipine PO Lantus 14 U BID Tylenol PO Levaquin PO Follow-up: Outpatient GI follow-up for EGD Primary care follow-up for diabetes and hypertension management Vitamin D supplementation recommended Condition on Discharge: Stable for discharge home Consults/Reason for consult GI due to possible GI bleeding Operations or Procedures Procedure: CT CT AB PEL WO CON-NO ORAL OR IV 11/26/2024 10:33 AM Indication: epigastric pain, vominting Comparison Study: CT CT AB PEL WO CON-NO ORAL OR IV on DOS: 09/07/24, CT CT AB PEL WO CON-NO ORAL OR IV on DOS: 08/06/24, CT CT AB PEL WITH ORAL CON ONLY on DOS: 05/12/24 Technique: Axial images were obtained and reformatted in coronal and sagittal planes. All CT scans at this medical facility are performed using dose modulation techniques as appropriate to a performed exam including the following: Automated exposure control was utilized; adjustment of the MA and/or KV according to patient size; and use of iterative reconstruction technique. CT Dose: CTDI volume is 9 mGy. Dose-length product is 491 mGy*cm FINDINGS: Lower Chest: Unremarkable. Hepatobiliary: Hepatic steatosis. Spleen: Unremarkable. Pancreas: Unremarkable. Adrenal Glands: Unremarkable. tract: The kidneys are normal in size bilaterally without hydronephrosis or nephrolithiasis. The urinary bladder is unremarkable. GI tract: The stomach is grossly normal in appearance. No evidence of small bowel obstruction. Descending and sigmoid colon diverticulosis without diverticulitis. The appendix is not visualized. No inflammatory change is noted in the right lower quadrant. Lymphatics: No mesenteric, retroperitoneal or periportal lymphadenopathy. Vasculature: The abdominal aorta is normal in in caliber. Pelvic Organs: Prostate is mildly enlarged. Bones/soft tissues: No acute abnormality. Degenerative changes of the lumbar spine noted. Small fat-containing umbilical hernia. Other: None. IMPRESSION: 1. No CT evidence of acute abnormality in the abdomen and pelvis. 2. Hepatic steatosis. 3. Descending and sigmoid diverticulosis without diverticulitis. 4. Mild prostatic hyperplasia. Condition at Discharge: Stable Final Diagnosis/Problems List #GI bleeding? #Hematemesis #Sepsis? #RYNE due to VMN on possible CKD #Possible HHS #Uncontrolled diabetes type 2 #NSTEMI type 2 #Hyperlipidemia #Hyperparathyrodism - secondary CKD Discharge Disposition: Home Discharge Instruct/Medications Diet: See Comment Diet comment: liquid diet Activity: No Restrictions, As Tolerated Follow Up/Referral: f/u GI as outpatient Medications: see prescription Discharge Statement: "Patient was advised to return to the ER or call 911 if any headaches, dizziness, shortness of breath, chest pain, abdominal pain, bleeding, fevers, or worsening of medical condition. Patient was counseled about treatment plan, medications, possible side effects, patientverbalized understanding. All questions were answered to the best of my ability. This discharge took greater then 30 minutes in planning, reviewing documentation, counseling the patient, and discussing with other team members." ASSESSMENT ASSESSMENT Assessment GI bleeding? Dehydration Date of Service: Nov 28, 2024 Billing Provider: LORRAINE ACEVEDO MD Common Visit Codes: 02245-GPI/OBS DISCH DAY >30min COREEN BULLARD RESIDENT Nov 28, 2024 10:59 LORRAINE ACEVEDO MD Nov 28, 2024 22:54
--- NOTE | 2024-11-28 11:23 | DVHPN2 ---
Progress Note Date Seen: Nov 28, 2024 Resident Creating Document: TYE AMADOR RESIDENT Has the PT tested + for MRSA If YES, has PT been informed?: No Medical Necessity Reason Pt with a Central, PICC or Fol: No Subjective Review of Systems Patient was tentatively scheduled for an endoscopy yesterday However the patient has been refusing to have an endoscopy. Patient wants to eat and does not want a repeat endoscopy at this time There was no further episodes of nausea vomiting or upper GI bleeding. Hemoglobin is stable at 13.7 elevated CPK, trending down Continue IV fluid hydration Liver enzymes are trending down Objective vital signs Vital Sign Date Time Temp Pulse Resp B/P (MAP) Pulse Ox O2 Delivery O2 Flow Rate FiO2 11/28/24 10:57 72 16 142/82 11/28/24 09:51 98.3 100 98.3 11/28/24 08:00 Room Air* 0 21 Total Intake and Output 11/27/24 11/27/24 11/28/24 15:00 23:00 07:00 Intake Total 100 ml 500 ml 400 ml Output Total 800 ml Balance 100 ml 500 ml -400 ml medications Current Medications Medications Dose Ordered Sig/Adina Route Start Time Stop Time Status Last Admin Dose Admin Diagnostic Test (Pha) 1 strip ACHS 11/26/24 17:00 11/28/24 07:05 1 STRIP Insulin Human Regular ACHS SC 11/26/24 17:00 11/27/24 22:33 2 UNITS Dextrose 50 ml UD PRN IV 11/26/24 14:45 Insulin Glargine 14 units BID@0700,2200 SC 11/26/24 22:00 11/28/24 07:03 14 UNITS Metronidazole 100 ml @ 100 mls/hr Q8HR IV 11/26/24 22:00 11/28/24 05:39 100 MLS/HR Sodium Chloride 1,000 ml @ 100 mls/hr Q10H IV 11/26/24 14:45 11/27/24 09:06 100 MLS/HR Acetaminophen/ Hydrocodone Bitart 1 tab Q4HP PRN PO 11/26/24 14:45 Ondansetron HCl 4 mg Q4HP PRN IV 11/26/24 14:45 11/28/24 10:32 4 MG Acetaminophen 650 mg Q6HP PRN PO 11/26/24 14:45 Morphine Sulfate 2 mg Q4HPRN PRN IV 11/26/24 14:45 11/28/24 10:27 2 MG Pantoprazole Sodium 40 mg BID IV 11/27/24 10:00 11/28/24 10:26 40 MG Sucralfate 1 gm QID@0600,1130,1700,2200 PO 11/27/24 06:00 11/28/24 10:26 1 GM Ceftriaxone Sodium 50 ml @ 100 mls/hr DAILY@09 IV 11/28/24 09:00 11/28/24 08:45 100 MLS/HR Amlodipine Besylate 5 mg DAILY PO 11/28/24 10:00 11/28/24 10:27 5 MG Ergocalciferol 50,000 unit Q7D PO 11/28/24 06:30 11/28/24 07:22 50,000 UNIT Examination Patient is awake alert Lungs clear to auscultation bilaterally Cardiac exam regular rate and rhythm GI soft nontender normal Extremities no clubbing cyanosis or edema Neuro nonfocal laboratory and microbiology Laboratory Tests 11/28/24 06:15 Test 11/28/24 06:15 Range/Units Serum Glucose 103 # 74-106 mg/dL Microbiology Date/Time Source Procedure Growth Status 11/26/24 15:40 Blood Blood Culture - Preliminary NO GROWTH AFTER 24 HOURS OF INCUBATION. Resulted 11/26/24 11:55 Voided Urine Urine Culture - Preliminary Resulted Labs and/or images reviewed: Labs reviewed by me, Image(s) reviewed by me Problem List/Assessment/Plan Problem List/Assessment/Plan Nausea with vomiting, unspecified Upper GI bleed Gastritis Cyclical vomiting syndrome Renal failure Uncontrolled type 2 DM with hyperosmolar nonketotic hyperglycemia Leukocytosis, unspecified Rhabdomyolysis Plan Patient has a history of noncompliance and previous refusal to procedures and also leaving AMA Continue supportive care at this time Cancelled EGD as per patient request Protonix 40 mg p.o. twice a day Carafate 1 g 4 times a day DC aspirin NSAIDs marijuana smoking amphetamines Outpatient follow up with GI Services as needed Start full liquid diet advance as tolerated Plan discussed with: Patient, Other (RN) TYE AMADOR RESIDENT Nov 28, 2024 11:23
[2024-11-28] MEDS ORDERED: ERGO1CAP23 PO (11:56)
[2024-11-28 12:12] VITALS: BP 163/97; TEMP 36.8
[2024-11-28 12:17] VITALS: BP 134/81; PULSE 76; RESP 17; TEMP 98.7; O2SAT 96
== END 2024-11-28 12:35 | disposition left against medical advice (07) | DRG 241 ==
LOC: EDBD 08:30 → ER 08:30 → OVERFLOW 14:43 → EAST 17:18
PROVIDERS: ADMIT Internal Medicine; ATTEND Internal Medicine
DX: K29.71 Gastritis, unspecified, with bleeding (principal); N17.0 Acute kidney failure with tubular necrosis; E11.00 Type 2 diabetes mellitus with hyperosmolarity without nonketotic hyperglycemic-hyperosmolar coma (NKHHC); I21.A1 Myocardial infarction type 2; I95.9 Hypotension, unspecified; K57.31 Diverticulosis of large intestine without perforation or abscess with bleeding; E11.22 Type 2 diabetes mellitus with diabetic chronic kidney disease; K76.0 Fatty (change of) liver, not elsewhere classified; Z20.822 Contact with and (suspected) exposure to COVID-19; E78.5 Hyperlipidemia, unspecified; E86.0 Dehydration; F12.10 Cannabis abuse, uncomplicated; N40.0 Benign prostatic hyperplasia without lower urinary tract symptoms; K44.9 Diaphragmatic hernia without obstruction or gangrene; I12.9 Hypertensive chronic kidney disease with stage 1 through stage 4 chronic kidney disease, or unspecified chronic kidney disease; F15.10 Other stimulant abuse, uncomplicated; N18.9 Chronic kidney disease, unspecified; K21.9 Gastro-esophageal reflux disease without esophagitis; Z79.4 Long term (current) use of insulin; Z79.899 Other long term (current) drug therapy; Z80.1 Family history of malignant neoplasm of trachea, bronchus and lung; Z82.0 Family history of epilepsy and other diseases of the nervous system; Z91.148 Patient's other noncompliance with medication regimen for other reason; Z87.11 Personal history of peptic ulcer disease; Z83.3 Family history of diabetes mellitus
CPT/HCPCS: 36415; 71045; 74176; 80053; 80061; 80202; 80307; 81001; 82306; 82550; 82570; 82962; 83036; 83605; 83690; 83735; 83880; 83970; 84100; 84156; 84300; 84439; 84443; 84481; 84484; 84550; 85025; 85610; 85652; 85730; 86141; 86850; 86900; 86901; 87040; 87086; 87426; 87804; 96361; 96365; 96366; 96367; 96372; 96375; 99291; G0378; J1815; J2250; J2405; J2470; J3490

== ENCOUNTER 2024-12-01 05:47 | Emergency (ER) | payer MEDICAID, OTHER ==
[~2024-12-01] VITALS: Ht 172.7 cm; Wt 77.2 kg
[~2024-12-01 05:47] MED LIST changes: +ACET-1882 PO; +AML5T PO; +ERGO1CAP23 PO; +LEVO500T91 PO; +SUCR1TAB PO
--- NOTE | 2024-12-01 06:32 | ED.PDOC ---
GI ASSESSMENT HPI Comments 44Mpresents to the Er w/ no prior Hx associated to the c/c of ABD pain. Pt reports on having ABD pain for 2 weeks and was recently discharged "a couple days ago" because he denied an endoscopy. Due from him denying the endoscopy, they discharged him, the pt states that "my throat was really sore and I had" hematemesis. Pt notes that he has been having N/V. Denies chills, fever, /D, SOB, CP or no other associated symptom's, modifiers, recent injuries or sick contacts at this time. Chief Complaint: Abdominal Pain Time Seen by MD: 06:15 Reviewed Notes: Nurses Notes, Medications, Allergies Allergies: Coded Allergies: NO KNOWN ALLERGIES (Unverified , 09/21/20) Home Meds Active Scripts Ergocalciferol (VITAMIN D 02850 UNIT) 50,000 [place], [address] UNIT PO QWEEKLY for 30 Days, #4 CAP Prov:COREEN BULLARD [facility] 11/28/24 Levofloxacin Hemihydrate (LEVAQUIN 500 MG) 500 Mg Tab, 500 MG PO DAILY for 7 Days, #7 TAB Prov:COREEN BULLARD [facility] 11/28/24 Amlodipine Besylate (NORVASC TABLET) 5 Mg Tb, 5 MG PO DAILY for 30 Days, #30 TAB Prov:COREEN BULLARD [facility] 11/28/24 Acetaminophen (Acetaminophen) 325 Mg Tab, 650 MG PO Q6HP PRN for 30 Days, #240 TAB Prov:COREEN BULLARD [facility] 11/28/24 Sucralfate (Sucralfate) 1 Gm Tab, 1 TAB PO BID for 30 Days, #60 TAB Prov:COREEN BULLARD [facility] 11/28/24 Pantoprazole Sodium Sesquihydr (Pantoprazole Sodium) 40 Mg Tab, 40 MG PO DAILY for 30 Days, #30 TAB 2 Refills Prov:COREEN BULLARD [facility] 11/28/24 Sucralfate (CARAFATE SUSP) 1 Gm/10 Ml Ss, 1 GM PO BID@0600,2200 for 14 Days, #10 ML Prov:VEE SPANN RESIDENT 09/09/24 Metoclopramide Hcl (Reglan) 5 Mg Tab, 5 MG PO DAILY PRN for 30 Days, #30 TAB Prov:DEBBIE BARRAGAN RESIDENT 08/08/24 Insulin Glargine (Lantus) 100 Unit/Ml Inj, 80 UNIT SC HS for 96 Days, #10 ML 1 Refill Prov:ROGELIO COBB MD 06/12/24 Information Source: Patient Mode of Arrival: Ambulatory Timing: Weeks Duration: Since onset Prehospital treatment: None Quality: Aching Vomitus: Bloody Stool: Normal Severity: Moderate Recent: None Recent Hx of: None Pain Location: Diffuse Associated sign and symptoms: Nausea, Vomiting, Hematemesis, Abdominal Pain Past Medical History PAST MEDICAL HISTORY: Denies Surgical History: Denies all surgeries Family History Family History: Reviewed,noncontributory to illness, Unknown Social History Smoker: Non-Smoker Alcohol: Denies ETOH Use Drugs: Denies Drug Use Lives In: Home Constitutional: denies: chills, diaphoresis, fatigue, fever, malaise, sweats, weakness, others EENTM: denies: blurred vision, double vision, ear bleeding, ear discharge, ear drainage, ear pain, ear ringing, eye pain, eye redness, hearing loss, mouth pain, mouth swelling, nasal discharge, nose bleeding, nose congestion, nose pain, photophobia, tearing, throat pain, throat swelling, voice changes, others Respiratory: denies: cough, hemoptysis, orthopnea, SOB at rest, shortness of breath, SOB with excertion, stridor, wheezing, others Cardiovascular: denies: chest pain, dizzy spells, diaphoresis, Dyspnea on exertion, edema, irregular heart beat, left arm pain, lightheadedness, palpitations, PND, syncope, others Gastrointestinal: reports: abdominal pain, hematemesis, nausea, vomiting; denies: abdomen distended, blood streaked bowels, constipated, diarrhea, dysphagia, difficulty swallowing, melena, poor appetite, poor fluid intake, rectal bleeding, rectal pain, others Genitourinary: denies: burning, dysuria, flank pain, frequency, hematuria, incontinence, penile discharge, penile sore, pain, testicle pain, testicle swelling, urgency, others Neurological: denies: dizziness, fainting, headache, left sided numbness, left sided weakness, numbness, paresthesia, pre-existing deficit, right sided numbness, right sided weakness, seizure, speech problems, tingling, tremors, weakness, others Musculoskeletal: denies: back pain, gout, joint pain, joint swelling, muscle pain, muscle stiffness, neck pain, others Integumetry: denies: bruises, change in color, change in hair/nails, dryness, laceration, lesions, lumps, rash, wounds, others Allergic/Immunocompromised: denies: Difficulty Healing, Frequent Infections, H jared, Itching, others Hematologic/Lymphatic: denies: anemia, blood clots, easy bleeding, easy bruising, swollen glands, others Endocrine: denies: excessive hunger, excessive sweating, excessive thirst, excessive urination, flushing, intolerance to cold, intolerance to heat, unexplained weight gain, unexplained weight loss, others Psychiatric: denies: anxiety, bipolar disorder, depression, hopeless, panic disorder, schizophrenia, sleepless, suicidal, others All Other Systems: Reviewed and Negative Physical Exam General Appearance: No Apparent Distress, Normal HEENT: Normal ENT Inspection, Pharynx Normal, TMs Normal Neck: Full Range of Motion, Non-Tender, Normal, Normal Inspection Respiratory: Chest Non-Tender, Lungs Clear, No Accessory Muscle Use, No Respiratory Distress, Normal Breath Sounds Cardiovascular: No Edema, No JVD, No Murmur, No Gallop, Normal Peripheral Pulses, Regular Rate/Rhythm Breast Exam: Deferred Gastrointestinal: No Organomegaly, Non Tender, No Pulsatile Mass, Normal Bowel Sounds, Soft Genitalia: Deferred Pelvic: Deferred Rectal: Deferred Extremities: No calf tenderness, Normal capillary refill, Normal inspection, Normal range of motion, Non-tender, No pedal edema Musculoskeletal : Apperance: Normal Neurologic: Alert, manager research development II-XII nml as Tested, No Motor Deficits, Normal Affect, Normal Mood, No Sensory Deficits Cerebellar Function: Normal Reflexes: Normal Skin: Dry, Normal Color, Warm Lymphatic: No Adenopathy Was a procedure done? Was a procedure done?: No GI differential Dx Differential Diagnosis: Cholecystitis, Gastroenteritis, GI hemorrhage, Pancreatitis, PID, UTI, Urolithiasis, Dehydration, Electrolyte Imbalance, Food Poisoning, Viral X-Ray, Labs, Meds, VS Vital Signs Date Time Temp Pulse Resp B/P (MAP) Pulse Ox O2 Delivery O2 Flow Rate FiO2 12/01/24 08:00 80 12/01/24 07:40 99.6 88 15 109/66 (80) 97 99.6 12/01/24 07:40 88 15 97 Room Air* 0 21 12/01/24 06:51 Room Air* 0 21 21 12/01/24 06:32 99.2 78 24 151/76 (101) 96 99.2 12/01/24 05:47 98.0 82 18 159/90 (113) 100 Lab Test 12/01/24 07:45 12/01/24 06:14 Range/Units Urine Color Pending Urine Clarity Pending Urine pH Pending Urine Specific Dearing Pending Urine Protein Pending Urine Ketones Pending Urine Blood Pending Urine Nitrite Pending Urine Bilirubin Pending Urine Urobilinogen Pending Urine Leukocyte Esterase Pending Urine RBC Pending Urine Microscopic WBC Pending Urine Squamous Epithelial Cells Pending Urine Bacteria Pending Urine Glucose Pending White Blood Count 9.4 4.4-10.8 10^3/uL Red Blood Count 4.82 4.5-5.90 10^6/uL Hemoglobin 13.9 13.5-17.5 g/dL Hematocrit 40.2 L 41.0-53.0 % Mean Corpuscular Volume 83.5 80.0-100.0 fL Mean Corpuscular Hemoglobin 28.9 28.0-32.0 pg Mean Corpuscular Hemoglobin Concent 34.6 32.0-36.0 g/dL Red Cell Distribution Width 14.2 11.8-14.3 % Platelet Count 362 140-450 10^3/uL Mean Platelet Volume 7.1 6.9-10.8 fL Neutrophils (%) (Auto) 75.2 37.0-80.0 % Lymphocytes (%) (Auto) 18.1 10.0-50.0 % Monocytes (%) (Auto) 5.8 0.0-12.0 % Eosinophils (%) (Auto) 0.6 0.0-7.0 % Basophils (%) (Auto) 0.3 0.0-2.0 % Neutrophils # (Auto) 7.1 1.6-8.6 10 ^3/uL Lymphocytes # (Auto) 1.7 0.4-5.4 10 ^3/uL Monocytes # (Auto) 0.5 0-1.3 10 ^3/uL Eosinophils # (Auto) 0.1 0-0.8 10 ^3/uL Basophils # (Auto) 0 0-0.2 10 ^3/uL Nucleated Red Blood Cells 0.1 % Sodium Level 141 # 136-145 mmol/L Potassium Level 3.0 L 3.5-5.1 mmol/L Chloride Level 101 98-107 mmol/L Carbon Dioxide Level 33 H 20-31 mmol/L Anion Gap 7 5-15 Blood Urea Nitrogen 8 L 9-23 mg/dL Creatinine 0.96 0.700-1.30 mg/dL Glomerular Filtration Rate Calc 99 >90 mL/min BUN/Creatinine Ratio 8.3 L 10.0-20.0 Serum Glucose 79 74-106 mg/dL Lactic Acid Level 1.6 0.4-2.0 mmol/L Calcium Level 9.8 8.7-10.4 mg/dL Total Bilirubin 0.4 0.2-1.0 mg/dL Aspartate Amino Transferase (AST) 30 13-40 U/L Alanine Aminotransferase (ALT) 52 H 7-40 U/L Alkaline Phosphatase 87 46-116 U/L Total Protein 7.1 5.7-8.2 g/dL Albumin 4.4 3.2-4.8 g/dL Lipase 25 12-53 U/L Current Medications Medications (Trade) Dose Ordered Sig/Adina Route Start Time Stop Time Status Last Admin Haloperidol Lactate (Haldol) 10 mg ONCE ONCE IM 12/01/24 06:45 12/01/24 06:46 DC 12/01/24 07:07 Sodium Chloride 1,000 ml @ 1,000 mls/hr Q1H ONCE IV 12/01/24 08:00 12/01/24 08:59 DC 12/01/24 08:04 Time of 1ST Reevaluation: 06:45 Reevaluation 1ST: Unchanged Patient Education/Counseling: Diagnosis, Treatment, Prognosis Family Education/Counseling: No Family Present Departure 1 Departure Time of Disposition: 09:12 (Patient's workup is benign. Patient already has outpatient follow up set up. We will discharge patient home with outpatient follow up) Impression: Primary Impression: Chronic abdominal pain Disposition: 01 HOME / SELF CARE / HOMELESS Condition: Stable Additional Instructions: Your workup today was benign. You should take over the counter Omeprazole daily for 2 weeks. You should follow up with your regular doctor and your gastroenterology appointments. Discharged With: Self Critical Care Note Critical Care Time?: No Stability Stability form required: No I personally scribed for TASHA GONZALEZ MD ([email or web address]) on 12/01/24 at 06:32. Electronically submitted by Leonard Keys ([email or web address]). TASHA GONZALEZ MD Dec 01, 2024 06:32
[2024-12-01 06:42] LABS: Basophils # (auto) 0 10 ^3/uL (0-0.2); Basophils % (auto) 0.3 % (0.0-2.0); Eosinophils # (auto) 0.1 10 ^3/uL (0-0.8); Eosinophils % (auto) 0.6 % (0.0-7.0); Hematocrit 40.2 % (41.0-53.0); Hemoglobin 13.9 g/dL (13.5-17.5); Lymphocytes # (auto) 1.7 10 ^3/uL (0.4-5.4); Lymphocytes % (auto) 18.1 % (10.0-50.0); Mean Corpuscular Hemoglobin 28.9 pg (28.0-32.0); Mean Corpuscular Hgb Conc. 34.6 g/dL (32.0-36.0); Mean Corpuscular Volume 83.5 fL (80.0-100.0); Monocytes # (auto) 0.5 10 ^3/uL (0-1.3); Monocytes % (auto) 5.8 % (0.0-12.0); Neutrophils # (auto) 7.1 10 ^3/uL (1.6-8.6); Neutrophils % (auto) 75.2 % (37.0-80.0); Nucleated Red Blood Cells % 0.1 %; Platelet Count (auto) 362 10^3/uL (140-450); Red Blood Cells 4.82 10^6/uL (4.5-5.90); Red Cell Distribution Width 14.2 % (11.8-14.3); White Blood Cell 9.4 10^3/uL (4.4-10.8)
[2024-12-01 06:51] LABS: Alanine Aminotransferase 52 U/L (7-40); Albumin 4.4 g/dL (3.2-4.8); Alkaline Phosphatase 87 U/L (46-116); Anion Gap 7 (5-15); Aspartate Aminotransferase 30 U/L (13-40); BUN/Creatinine Ratio 8.3 (10.0-20.0); Bilirubin, Total 0.4 mg/dL (0.2-1.0); Blood Urea Nitrogen 8 mg/dL (9-23); Calcium 9.8 mg/dL (8.7-10.4); Carbon Dioxide 33 mmol/L (20-31); Chloride 101 mmol/L (98-107); Glucose 79 mg/dL (74-106); Lipase 25 U/L (12-53); Sodium 141 mmol/L (136-145); Total Protein 7.1 g/dL (5.7-8.2)
[2024-12-01] MEDS: HALOPERIDOL LACTATE 5 MG/ML INJ VIAL IM ONE (07:07)
[2024-12-01 07:40] VITALS: PULSE 88; RESP 15; TEMP 99.6; O2SAT 97
[2024-12-01] MEDS: SODIUM CHLORIDE 0.9% 1,000 ML IV ONE (08:04)
[2024-12-01 08:59] LABS: Urine Bacteria None Seen /hpf (None Seen)
[2024-12-01 09:10] LABS: Urine Blood Negative /uL (Negative); Urine Clarity Clear (Clear); Urine Color Light-Yellow (Yellow); Urine Protein, UAD TRACE (Negative); Urine Specific Gravity 1.011 (1.001-1.035); Urine Squamous Epithelial Cell FEW /hpf (<5); Urine Urobilinogen Normal (Negative); Urine WBC 1 /HPF (0-3)
[2024-12-01] MEDS: PANTOPRAZOLE 40 MG/10 ML VIAL INJ IV ONE (09:33)
[2024-12-01 09:59] VITALS: BP 145/76; PULSE 89; RESP 18; O2SAT 98
== END 2024-12-01 10:02 | disposition home or self-care (01) ==
LOC: EDUNIT# 05:47 → EDBD 05:47 → ER 05:47
DX: G89.29 Other chronic pain (principal); R10.84 Generalized abdominal pain; Z79.899 Other long term (current) drug therapy
CPT/HCPCS: 36415; 80053; 81001; 82947; 83605; 83690; 85025; 96361; 96372; 96374; 99285; J1630; J2470; J7030; 82962

== ENCOUNTER 2025-01-01 09:10 | Inpatient (IN) | payer MEDICAID ==
[~2025-01-01] VITALS: Ht 172.7 cm; Wt 81.3 kg
[2025-01-01] MEDS: SUCRALFATE 1 GM TAB PO SCH
[2025-01-01 10:54] LABS: Basophils # (auto) 0 10 ^3/uL (0-0.2); Basophils % (auto) 0.4 % (0.0-2.0); Eosinophils # (auto) 0 10 ^3/uL (0-0.8); Eosinophils % (auto) 0.1 % (0.0-7.0); Hematocrit 38.5 % (41.0-53.0); Lymphocytes # (auto) 0.9 10 ^3/uL (0.4-5.4); Lymphocytes % (auto) 11.2 % (10.0-50.0); Mean Corpuscular Hemoglobin 28.6 pg (28.0-32.0); Mean Corpuscular Hgb Conc. 33.9 g/dL (32.0-36.0); Mean Corpuscular Volume 84.5 fL (80.0-100.0); Monocytes # (auto) 0.3 10 ^3/uL (0-1.3); Monocytes % (auto) 3.3 % (0.0-12.0); Neutrophils # (auto) 6.8 10 ^3/uL (1.6-8.6); Platelet Count (auto) 375 10^3/uL (140-450); Red Blood Cells 4.55 10^6/uL (4.5-5.90); Red Cell Distribution Width 14.7 % (11.8-14.3)
[2025-01-01 11:07] LABS: Alanine Aminotransferase 17 U/L (7-40); Albumin 4.7 g/dL (3.2-4.8); Alkaline Phosphatase 87 U/L (46-116); Anion Gap 10 (5-15); Aspartate Aminotransferase 17 U/L (13-40); BUN/Creatinine Ratio 13.8 (10.0-20.0); Bilirubin, Total 0.6 mg/dL (0.2-1.0); Blood Urea Nitrogen 12 mg/dL (9-23); Calcium 9.7 mg/dL (8.7-10.4); Carbon Dioxide 27 mmol/L (20-31); Chloride 101 mmol/L (98-107); Potassium 3.6 mmol/L (3.5-5.1); Sodium 138 mmol/L (136-145); Total Protein 7.3 g/dL (5.7-8.2)
[2025-01-01 11:08] LABS: Glucose 190 mg/dL (74-106)
--- NOTE | 2025-01-01 13:50 | ED.PDOC ---
GI ASSESSMENT HPI Comments 44 y.o male presents to the ED via EMS for a chief complaint of diffused abdominal pain associated with nausea, vomiting and melena. Patient reports ongoing complaint, was seen at [facility] 3 days ago, had an endoscopy and discharged 2 days ago. Patient reports developing sharp abdominal pain once again with dark stool when he got home from the hospital and states today had 2 episodes of bilious bile, non bloody emesis. Patient denies any fever, chills, sweats, diarrhea, chest pain, SOB. EMS gave 1 gram of Tylenol en route but patient denied any pain relief. Chief Complaint: Abdominal Pain Time Seen by MD: 13:41 Primary Care Provider: unknown Reviewed Notes: Nurses Notes, Medications, Allergies Allergies: Coded Allergies: NO KNOWN ALLERGIES (Unverified , 09/21/20) Home Meds Active Scripts Ergocalciferol (VITAMIN D 76359 UNIT) 50,000 [place], [address] UNIT PO QWEEKLY for 30 Days, #4 CAP Prov:COREEN BULLARD 11/28/24 Levofloxacin Hemihydrate (LEVAQUIN 500 MG) 500 Mg Tab, 500 MG PO DAILY for 7 Days, #7 TAB Prov:COREEN BULLARD [facility] 11/28/24 Amlodipine Besylate (NORVASC TABLET) 5 Mg Tb, 5 MG PO DAILY for 30 Days, #30 TAB Prov:COREEN BULLARD [facility] 11/28/24 Acetaminophen (Acetaminophen) 325 Mg Tab, 650 MG PO Q6HP PRN for 30 Days, #240 TAB Prov:COREEN BULLARD 11/28/24 Sucralfate (Sucralfate) 1 Gm Tab, 1 TAB PO BID for 30 Days, #60 TAB Prov:COREEN BULLARD 11/28/24 Pantoprazole Sodium Sesquihydr (Pantoprazole Sodium) 40 Mg Tab, 40 MG PO DAILY for 30 Days, #30 TAB 2 Refills Prov:COREEN BULLARD [facility] 11/28/24 Sucralfate (CARAFATE SUSP) 1 Gm/10 Ml Ss, 1 GM PO BID@0600,2200 for 14 Days, #10 ML Prov:VEE SPANN RESIDENT 09/09/24 Metoclopramide Hcl (Reglan) 5 Mg Tab, 5 MG PO DAILY PRN for 30 Days, #30 TAB Prov:DEBBIE BARRAGAN RESIDENT 08/08/24 Insulin Glargine (Lantus) 100 Unit/Ml Inj, 80 UNIT SC HS for 96 Days, #10 ML 1 Refill Prov:ROGELIO COBB MD 06/12/24 Information Source: Patient Mode of Arrival: EMS Timing: Days (3) Duration: Since onset Quality: Sharp Vomitus: Bilious Stool: Black Severity: Moderate Recent: None Recent Hx of: Other ( endoscopy) Pain Location: Diffuse Modifying Factors: Nothing Associated sign and symptoms: Nausea, Vomiting, Melena, Abdominal Pain Past Medical History PAST MEDICAL HISTORY: Denies Surgical History: Denies all surgeries Family History Family History: Reviewed,noncontributory to illness, Unknown Social History Smoker: Non-Smoker Alcohol: Denies ETOH Use Drugs: Denies Drug Use Lives In: Home Constitutional: denies: chills, diaphoresis, fatigue, fever, malaise, sweats, weakness, others EENTM: denies: blurred vision, double vision, ear bleeding, ear discharge, ear drainage, ear pain, ear ringing, eye pain, eye redness, hearing loss, mouth pain, mouth swelling, nasal discharge, nose bleeding, nose congestion, nose pain, photophobia, tearing, throat pain, throat swelling, voice changes, others Respiratory: denies: cough, hemoptysis, orthopnea, SOB at rest, shortness of breath, SOB with excertion, stridor, wheezing, others Cardiovascular: denies: chest pain, dizzy spells, diaphoresis, Dyspnea on exertion, edema, irregular heart beat, left arm pain, lightheadedness, palpitations, PND, syncope, others Gastrointestinal: reports: abdominal pain, melena, nausea, vomiting; denies: abdomen distended, blood streaked bowels, constipated, diarrhea, dysphagia, difficulty swallowing, hematemesis, poor appetite, poor fluid intake, rectal bleeding, rectal pain, others Genitourinary: denies: burning, dysuria, flank pain, frequency, hematuria, incontinence, penile discharge, penile sore, pain, testicle pain, testicle swelling, urgency, others Neurological: denies: dizziness, fainting, headache, left sided numbness, left sided weakness, numbness, paresthesia, pre-existing deficit, right sided numbness, right sided weakness, seizure, speech problems, tingling, tremors, weakness, others Musculoskeletal: denies: back pain, gout, joint pain, joint swelling, muscle pain, muscle stiffness, neck pain, others Integumetry: denies: bruises, change in color, change in hair/nails, dryness, laceration, lesions, lumps, rash, wounds, others Allergic/Immunocompromised: denies: Difficulty Healing, Frequent Infections, Hives, Itching, others Hematologic/Lymphatic: denies: anemia, blood clots, easy bleeding, easy bruising, swollen glands, others Endocrine: denies: excessive hunger, excessive sweating, excessive thirst, excessive urination, flushing, intolerance to cold, intolerance to heat, unexplained weight gain, unexplained weight loss, others Psychiatric: denies: anxiety, bipolar disorder, depression, hopeless, panic disorder, schizophrenia, sleepless, suicidal, others All Other Systems: Reviewed and Negative Physical Exam General Appearance: Other (uncomfortable appearing ) HEENT: NOT DONE Neck: Normal Inspection Respiratory: No Accessory Muscle Use, No Respiratory Distress, Normal Breath Sounds Cardiovascular: Normal Peripheral Pulses, Regular Rate/Rhythm Breast Exam: Deferred Gastrointestinal: Normal Bowel Sounds, Soft Genitalia: Deferred Pelvic: Deferred Rectal: Deferred Extremities: Normal inspection Neurologic: Alert, Normal Affect, Normal Mood Cerebellar Function: Normal Reflexes: NOT DONE Skin: Dry, Normal Color Lymphatic: NOT DONE Was a procedure done? Was a procedure done?: No GI differential Dx Differential Diagnosis: Gastroenteritis, Inflammatory BD, Ischemic Bowel, Esophageal Varicies, Stress Ulcer X-Ray, Labs, Meds, VS Vital Signs Date Time Temp Pulse Resp B/P (MAP) Pulse Ox O2 Delivery O2 Flow Rate FiO2 01/01/25 09:19 99.1 91 16 147/72 (97) 98 99.1 Lab Test 01/01/25 10:34 01/01/25 09:18 Range/Units White Blood Count 8.0 4.4-10.8 10^3/uL Red Blood Count 4.55 4.5-5.90 10^6/uL Hemoglobin 13.0 L 13.5-17.5 g/dL Hematocrit 38.5 L 41.0-53.0 % Mean Corpuscular Volume 84.5 80.0-100.0 fL Mean Corpuscular Hemoglobin 28.6 28.0-32.0 pg Mean Corpuscular Hemoglobin Concent 33.9 32.0-36.0 g/dL Red Cell Distribution Width 14.7 H 11.8-14.3 % Platelet Count 375 140-450 10^3/uL Mean Platelet Volume 6.4 L 6.9-10.8 fL Neutrophils (%) (Auto) 85.0 H 37.0-80.0 % Lymphocytes (%) (Auto) 11.2 10.0-50.0 % Monocytes (%) (Auto) 3.3 0.0-12.0 % Eosinophils (%) (Auto) 0.1 0.0-7.0 % Basophils (%) (Auto) 0.4 0.0-2.0 % Neutrophils # (Auto) 6.8 1.6-8.6 10 ^3/uL Lymphocytes # (Auto) 0.9 0.4-5.4 10 ^3/uL Monocytes # (Auto) 0.3 0-1.3 10 ^3/uL Eosinophils # (Auto) 0 0-0.8 10 ^3/uL Basophils # (Auto) 0 0-0.2 10 ^3/uL Nucleated Red Blood Cells 0.0 % Sodium Level 138 136-145 mmol/L Potassium Level 3.6 3.5-5.1 mmol/L Chloride Level 101 98-107 mmol/L Carbon Dioxide Level 27 20-31 mmol/L Anion Gap 10 5-15 Blood Urea Nitrogen 12 9-23 mg/dL Creatinine 0.87 0.700-1.30 mg/dL Glomerular Filtration Rate Calc 108 >90 mL/min BUN/Creatinine Ratio 13.8 10.0-20.0 Serum Glucose 190 H 74-106 mg/dL Calcium Level 9.7 8.7-10.4 mg/dL Total Bilirubin 0.6 0.2-1.0 mg/dL Aspartate Amino Transferase (AST) 17 13-40 U/L Alanine Aminotransferase (ALT) 17 7-40 U/L Alkaline Phosphatase 87 46-116 U/L Troponin I High Sensitivity 3 L </=54 ng/L Total Protein 7.3 5.7-8.2 g/dL Albumin 4.7 3.2-4.8 g/dL POC Glucose 149 H 70-106 mg/dl Time of 1ST Reevaluation: 13:46 Reevaluation 1ST: Unchanged Patient Education/Counseling: Diagnosis, Treatment, Prognosis Family Education/Counseling: No Family Present Departure 1 Departure Time of Disposition: 14:45 (Patient presented with abdominal pain that was concerning for possible appendicits, gastritis, cholecystitis, colitis, gastroenteritis, sbo, or orther possible surgical emergency. Data: 1. I ordered and reviewed the result of at least 3 labs including a CBC, BMP, and Urinalysis. 2. I independently interpreted the following tests: Chest x-ray is benign.Risk:This patient has a high risk of morbidity due to further diagnostic testing or treatment and may suffer from an acute abdominal process disorder. Workup reveals intractable abdominal pain and is well known to the ER and patient should be admitted for further workup. and possible expert consultation. ) Impression: Primary Impression: Intractable abdominal pain Additional Impression: Projectile vomiting Qualified Codes: R11.12 - Projectile vomiting Disposition: ADMITTED INPATIENT Admit to: Med Surg Condition: Serious Critical Care Note Critical Care Time?: Yes Critical care comment: Intractable abdominal pain Authorized and Performed by: Tasha Harris MD Total critical care time: Approximately 38 minutes Due to a high probability of clinically significant, life threatening deterioration, the patient required my highest level of preparedness to intervene emergently and I personally spent this critical care time directly and personally managing the patient. This critical care time included obtaining a history; examining the patient; pulse oximetry; ordering and review of studies; arranging urgent treatment with development of a management plan; evaluation of patient's response to treatment; frequent reassessment; and, discussions with other providers. This critical care time was performed to assess and manage the high probability of imminent, life-threatening deterioration that could result in multi-organ failure. It was exclusive of separately billable procedures and treating other patients and teaching time. Please see my other sections and the rest of the note for further information on patient assessment and treatment. Stability Stability form required: No I personally scribed for TASHA HARRIS MD ([email or web address]) on 01/01/25 at 13:50. Electronically submitted by Chetna Marin ([facility]). TASHA HARRIS MD Jan 01, 2025 13:50
[2025-01-01] MEDS: HALOPERIDOL LACTATE 5 MG/ML INJ VIAL IM ONE (14:00)
--- NOTE | 2025-01-01 14:23 | DVH ---
EXAM: XY CHEST PORTABLE HISTORY: epigastric pain after colonoscopy COMPARISON: XY CHEST XRAY 1 VIEW on DOS: 11/26/24, XY CHEST PORTABLE on DOS: 09/07/24, XY CHEST PORTABL E on DOS: 09/05/24 TECHNIQUE: Portable AP view of the chest was performed. FINDINGS: No pneumothorax, consolidative infiltrates, or pulmonary edema. The heart is not enlarged. There are postoperative changes of the cervical spine. IMPRESSION: No acute intrathoracic process.
[2025-01-01] MEDS: SODIUM CHLORIDE 0.9% 1,000 ML IV ONE (14:49)
[2025-01-01] MEDS: ONDANSETRON HCL 4 MG/2 ML VIAL IV ONE (14:50)
[2025-01-01] MEDS: MORPHINE SULFATE 4 MG/ML SYR/VIAL IV ONE (14:50)
--- NOTE | 2025-01-01 15:58 | DVHHP2 ---
Admitting Diagnosis: Abdominal pain History of Present Illness 44 y.o male presents to the ED via EMS for a chief complaint of diffused abdominal pain associated with nausea, vomiting and melena. Patient reports o ngoing complaint, was seen at [facility] 3 days ago, had an endoscopy and discharged 2 days ago. Patient reports developing sharp abdominal pain once again with dark stool when he got home from the hospital and states today had 2 episodes of bilious bile, non bloody emesis. Patient denies any fever, chills, sweats, diarrhea, chest pain, SOB. EMS gave 1 gram of Tylenol en route but patient denied any pain relief. PAST MEDICAL HISTORY: Denies Surgical History: Denies all surgeries Family History Family History: Reviewed,noncontributory to illness, Unknown Social History Smoker: Non-Smoker Alcohol: Denies ETOH Use Drugs: Denies Drug Use Lives In: Home Patient Family History: Alzheimer's disease G8 FATHER Diabetes mellitus G8 BROTHER FH: lung cancer G8 MOTHER, Onset:Unknown Allergies: Coded Allergies: NO KNOWN ALLERGIES (Unverified , 09/21/20) Home Meds Active Scripts Ergocalciferol (VITAMIN D 21046 UNIT) 50,000 [place], [address] UNIT PO QWEEKLY for 30 Days, #4 CAP Prov:COREEN BULLARD [facility] 11/28/24 Levofloxacin Hemihydrate (LEVAQUIN 500 MG) 500 Mg Tab, 500 MG PO DAILY for 7 Days, #7 TAB Prov:COREEN BULLARD [facility] 11/28/24 Amlodipine Besylate (NORVASC TABLET) 5 Mg Tb, 5 MG PO DAILY for 30 Days, #30 TAB Prov:COREEN BULLARD [facility] 11/28/24 Acetaminophen (Acetaminophen) 325 Mg Tab, 650 MG PO Q6HP PRN for 30 Days, #240 TAB Prov:COREEN BULLARD [facility] 11/28/24 Sucralfate (Sucralfate) 1 Gm Tab, 1 TAB PO BID for 30 Days, #60 TAB Prov:COREEN BULLARD 11/28/24 Pantoprazole Sodium Sesquihydr (Pantoprazole Sodium) 40 Mg Tab, 40 MG PO DAILY for 30 Days, #30 TAB 2 Refills Prov:COREEN BULLARD 11/28/24 Sucralfate (CARAFATE SUSP) 1 Gm/10 Ml Ss, 1 GM PO BID@0600,2200 for 14 Days, #10 ML Prov:VEE SPANN RESIDENT 09/09/24 Metoclopramide Hcl (Reglan) 5 Mg Tab, 5 MG PO DAILY PRN for 30 Days, #30 TAB Prov:DEBBIE BARRAGAN RESIDENT 08/08/24 Insulin Glargine (Lantus) 100 Unit/Ml Inj, 80 UNIT SC HS for 96 Days, #10 ML 1 Refill Prov:ROGELIO COBB MD 06/12/24 Current Medications Current Medications Medications (Trade) Dose Ordered Sig/Adina Route PRN Reason Start Time Stop Time Status Last Admin Pantoprazole Sodium (Protonix) 40 mg BID IV 01/01/25 22:00 UNV Sodium Chloride (Saline Lock Ns) 10 ml Q8HR IV 01/01/25 22:00 UNV Docusate Sodium (Colace Capsule) 100 mg BIDPRN PRN PO FOR CONSTIPATION 01/01/25 16:00 UNV Acetaminophen (Tylenol Tablet) 650 mg Q6HP PRN PO PAIN SCALE 1-3 OR TEMP>100.4 01/01/25 16:00 UNV Acetaminophen/ Hydrocodone Bitart ([place] 5/325MG Tab) 1 tab Q4HP PRN PO MODERATE PAIN (4-6 PAIN SCALE) 01/01/25 16:00 UNV Ondansetron HCl (Zofran) 4 mg Q4HP PRN IV NAUSEA / VOMITING 01/01/25 16:00 UNV Vital Signs Vital Signs Date Time Temp Pulse Resp B/P (MAP) Pulse Ox O2 Delivery O2 Flow Rate FiO2 01/01/25 14:50 92 17 148/90 01/01/25 09:19 99.1 98 99.1 Physical Exam Generally 44 years old male, well nourished well developed. Moderate distress HEENT-atraumatic normocephalic Heart-regular rate and rhythm Lungs clear to auscultate bilaterally Abdomen soft, tender to palpate epigastrium, nondistended Musculoskeletal-no edema cyanosis Neuro-AO x3, no focal deficits Results Labs Test 01/01/25 10:34 01/01/25 09:18 Range/Units White Blood Count 8.0 4.4-10.8 10^3/uL Red Blood Count 4.55 4.5-5.90 10^6/uL Hemoglobin 13.0 L 13.5-17.5 g/dL Hematocrit 38.5 L 41.0-53.0 % Mean Corpuscular Volume 84.5 80.0-100.0 fL Mean Corpuscular Hemoglobin 28.6 28.0-32.0 pg Mean Corpuscular Hemoglobin Concent 33.9 32.0-36.0 g/dL Red Cell Distribution Width 14.7 H 11.8-14.3 % Platelet Count 375 140-450 10^3/uL Mean Platelet Volume 6.4 L 6.9-10.8 fL Neutrophils (%) (Auto) 85.0 H 37.0-80.0 % Lymphocytes (%) (Auto) 11.2 10.0-50.0 % Monocytes (%) (Auto) 3.3 0.0-12.0 % Eosinophils (%) (Auto) 0.1 0.0-7.0 % Basophils (%) (Auto) 0.4 0.0-2.0 % Neutrophils # (Auto) 6.8 1.6-8.6 10 ^3/uL Lymphocytes # (Auto) 0.9 0.4-5.4 10 ^3/uL Monocytes # (Auto) 0.3 0-1.3 10 ^3/uL Eosinophils # (Auto) 0 0-0.8 10 ^3/uL Basophils # (Auto) 0 0-0.2 10 ^3/uL Nucleated Red Blood Cells 0.0 % Sodium Level 138 136-145 mmol/L Potassium Level 3.6 3.5-5.1 mmol/L Chloride Level 101 98-107 mmol/L Carbon Dioxide Level 27 20-31 mmol/L Anion Gap 10 5-15 Blood Urea Nitrogen 12 9-23 mg/dL Creatinine 0.87 0.700-1.30 mg/dL Glomerular Filtration Rate Calc 108 >90 mL/min BUN/Creatinine Ratio 13.8 10.0-20.0 Serum Glucose 190 H 74-106 mg/dL Calcium Level 9.7 8.7-10.4 mg/dL Total Bilirubin 0.6 0.2-1.0 mg/dL Aspartate Amino Transferase (AST) 17 13-40 U/L Alanine Aminotransferase (ALT) 17 7-40 U/L Alkaline Phosphatase 87 46-116 U/L Troponin I High Sensitivity 3 L </=54 ng/L Total Protein 7.3 5.7-8.2 g/dL Albumin 4.7 3.2-4.8 g/dL POC Glucose 149 H 70-106 mg/dl Primary Diagnosis Abdominal pain likely due to PUD Melena Plan Patient says that he had an endoscopy three days ago unclear the reason for endoscopy of the abdominal pain possible melena Patient been having melena small amount on today and emesis PPI 40 mg b.i.d. NPO except meds SCD for DVT prophylaxis GI consult, sees Dr. Dasilva Pain control Antiemetic Trend CBC q.8 hours Hold antihypertensive in view of possible upper GI bleed Occult blood Full code Plan discussed with: Patient Problems List: (1) Upper GI bleed (2) Intractable abdominal pain Status: Acute Date of Service: Jan 01, 2025 Billing Provider: JAMARI CARUSO MD Common Visit Codes: [id number] INP/OBS CARE (MOD) JAMARI CARUSO MD Jan 01, 2025 15:58
[2025-01-01] MEDS ORDERED: DEXTROSE (50%) 50ML SYRG IV PRN (16:00)
[2025-01-01] MEDS ORDERED: DOCUSATE SOD 100 MG CAP PO PRN (16:00)
[2025-01-01] MEDS ORDERED: ACETAMINOPHEN 325 MG TAB PO PRN (16:00)
[2025-01-01 17:10] LABS: Basophils # (auto) 0 10 ^3/uL (0-0.2); Basophils % (auto) 0.5 % (0.0-2.0); Eosinophils # (auto) 0 10 ^3/uL (0-0.8); Hemoglobin 12.4 g/dL (13.5-17.5); Lymphocytes # (auto) 1.2 10 ^3/uL (0.4-5.4); Mean Corpuscular Hemoglobin 28.2 pg (28.0-32.0); Mean Corpuscular Hgb Conc. 33.5 g/dL (32.0-36.0); Mean Corpuscular Volume 84.4 fL (80.0-100.0); Monocytes # (auto) 0.2 10 ^3/uL (0-1.3); Monocytes % (auto) 2.6 % (0.0-12.0); Neutrophils # (auto) 7.6 10 ^3/uL (1.6-8.6); Neutrophils % (auto) 83.9 % (37.0-80.0); Nucleated Red Blood Cells % 0.1 %; Platelet Count (auto) 358 10^3/uL (140-450); Red Blood Cells 4.39 10^6/uL (4.5-5.90); Red Cell Distribution Width 14.6 % (11.8-14.3); White Blood Cell 9.1 10^3/uL (4.4-10.8)
[2025-01-01] MEDS: ACCU-CHEK COMFORT CURVE STRIP VI SCH (18:00)
[2025-01-01] MEDS: InsuLIN REG 1unit/0.01ml Soln (100units/ml) SC SCH (18:53)
[2025-01-01] MEDS: HYDROcodone-ACET 5/325MG TAB PO PRN (18:54)
[2025-01-01 23:55] VITALS: PULSE 89; RESP 18; O2SAT 97
[2025-01-02 00:03] LABS: Basophils # (auto) 0 10 ^3/uL (0-0.2); Basophils % (auto) 0.4 % (0.0-2.0); Eosinophils # (auto) 0 10 ^3/uL (0-0.8); Eosinophils % (auto) 0.3 % (0.0-7.0); Hemoglobin 12.1 g/dL (13.5-17.5); Lymphocytes # (auto) 2.6 10 ^3/uL (0.4-5.4); Lymphocytes % (auto) 29.3 % (10.0-50.0); Mean Corpuscular Hemoglobin 28.7 pg (28.0-32.0); Mean Corpuscular Hgb Conc. 33.6 g/dL (32.0-36.0); Mean Corpuscular Volume 85.5 fL (80.0-100.0); Monocytes # (auto) 0.6 10 ^3/uL (0-1.3); Monocytes % (auto) 6.8 % (0.0-12.0); Neutrophils # (auto) 5.6 10 ^3/uL (1.6-8.6); Neutrophils % (auto) 63.2 % (37.0-80.0); Platelet Count (auto) 332 10^3/uL (140-450); Red Blood Cells 4.21 10^6/uL (4.5-5.90); Red Cell Distribution Width 14.9 % (11.8-14.3); White Blood Cell 8.8 10^3/uL (4.4-10.8)
[2025-01-02 00:24] VITALS: BP 137/72; PULSE 76; RESP 20; TEMP 98.3; O2SAT 97
[2025-01-02] MEDS: PANTOPRAZOLE 40 MG/10 ML VIAL INJ IV SCH (00:57)
[2025-01-02] MEDS: SODIUM CHLOR 0.9% PF (SALINE LOCK) 10ML VIAL/SYR IV SCH (00:57)
[2025-01-02 01:00] VITALS: BP 146/77; PULSE 81; RESP 20; TEMP 98; O2SAT 97
[2025-01-02] MEDS: ONDANSETRON HCL 4 MG/2 ML VIAL IV PRN (01:06)
[2025-01-02 05:00] VITALS: BP 128/78; PULSE 76; RESP 20; TEMP 98.4; O2SAT 99
[2025-01-02 06:59] LABS: Alanine Aminotransferase 16 U/L (7-40); Albumin 4.2 g/dL (3.2-4.8); Alkaline Phosphatase 68 U/L (46-116); Anion Gap 9 (5-15); Blood Urea Nitrogen 10 mg/dL (9-23); Calcium 9.5 mg/dL (8.7-10.4); Carbon Dioxide 29 mmol/L (20-31); Chloride 101 mmol/L (98-107); Potassium 3.6 mmol/L (3.5-5.1); Sodium 139 mmol/L (136-145); Total Protein 6.5 g/dL (5.7-8.2)
[2025-01-02 07:00] LABS: Aspartate Aminotransferase 16 U/L (13-40); Bilirubin, Total 0.8 mg/dL (0.2-1.0)
[2025-01-02 07:01] LABS: Glucose 143 mg/dL (74-106)
[2025-01-02 07:08] LABS: Basophils # (auto) 0 10 ^3/uL (0-0.2); Basophils % (auto) 0.4 % (0.0-2.0); Eosinophils # (auto) 0.1 10 ^3/uL (0-0.8); Eosinophils % (auto) 1.2 % (0.0-7.0); Hematocrit 34.5 % (41.0-53.0); Hemoglobin 12.1 g/dL (13.5-17.5); Lymphocytes % (auto) 32.1 % (10.0-50.0); Mean Corpuscular Hemoglobin 29.5 pg (28.0-32.0); Mean Corpuscular Volume 84.3 fL (80.0-100.0); Monocytes # (auto) 0.5 10 ^3/uL (0-1.3); Monocytes % (auto) 7.8 % (0.0-12.0); Neutrophils # (auto) 3.6 10 ^3/uL (1.6-8.6); Neutrophils % (auto) 58.5 % (37.0-80.0); Nucleated Red Blood Cells % 0.1 %; Platelet Count (auto) 340 10^3/uL (140-450); Red Blood Cells 4.09 10^6/uL (4.5-5.90); Red Cell Distribution Width 14.4 % (11.8-14.3); White Blood Cell 6.1 10^3/uL (4.4-10.8)
[2025-01-02 08:21] VITALS: BP 132/76; PULSE 80; RESP 17; TEMP 98; O2SAT 98
[2025-01-02] MEDS ORDERED: MAALOX PLUS or MAALOX 30 ML PO PRN (10:30)
[2025-01-02 11:23] VITALS: BP 125/82; PULSE 72; RESP 22; TEMP 98.4; O2SAT 95
[2025-01-02] MEDS: POLYETHYLENE GLYCOL 17 GM PWDR PO ONE ×2 (12:45→14:00)
[2025-01-02] MEDS ORDERED: GICOCKTAIL PO (13:08)
[2025-01-02 13:34] VITALS: BP 125/82; PULSE 72; RESP 20; TEMP 36.9; O2SAT 95
--- NOTE | 2025-01-02 13:49 | DVHINCON2 ---
Date of service: Jan 02, [address] Wang Reason for Consultation Nausea and vomiting History of Present Illness 44 y.o male presents to the ED via EMS for a chief complaint of diffused abdominal pain associated with nausea, vomiting and melena. Patient reports ongoing complaint, was seen at [facility] 3 days ago, had an endoscopy and discharged 2 days ago. Patient reports developing sharp abdominal pain once again with dark stool when he got home from the hospital and states today had 2 episodes of bilious bile, non bloody emesis. Patient denies any fever, chills, sweats, diarrhea, chest pain, SOB. EMS gave 1 gram of Tylenol en route but patient denied any pain relief. Today patient was seen in fast track. He is resting comfortably. He has no further nausea or vomiting. He is tolerating a clear liquid diet. Patient does not have results from his endoscopy but stated the tube to biopsies. Patient is suspected to have mild gastritis which I had seen on a previous endoscopy last year. Patient stated he does not drink alcohol and he quit smoking after his last clinic visit with me. He continues to smoke marijuana. Patient is scheduled with hi for an outpatient EGD and colonoscopy in June of this year. His H&H is stable and he is hemodynamically stable. Patient has underlying anxiety about his medical conditions Past Medical History Pancreatitis Diabetes Anxiety depression Gastritis Marijuana use Ex-smoker Past Surgical History Previous multiple endoscopies Family History: Alzheimer's disease G8 FATHER Diabetes mellitus G8 BROTHER FH: lung cancer G8 MOTHER, Onset:Unknown Allergies: Coded Allergies: NO KNOWN ALLERGIES (Unverified , 09/21/20) Home Meds Active Scripts Alum & Mag Hydrox-Simethicone (Gi Cocktail) 55 Ml Ss, 55 ML PO BID for 10 Days, #1 ML Prov:COREEN BULLARD 01/02/25 Ergocalciferol (VITAMIN D 84496 UNIT) 50,000 [place], [address] UNIT PO QWEEKLY for 30 Days, #4 CAP Prov:COREEN BULLARD 11/28/24 Levofloxacin Hemihydrate (LEVAQUIN 500 MG) 500 Mg Tab, 500 MG PO DAILY for 7 Days, #7 TAB Prov:COREEN BULLARD 11/28/24 Amlodipine Besylate (NORVASC TABLET) 5 Mg Tb, 5 MG PO DAILY for 30 Days, #30 TAB Prov:COREEN BULLARD 11/28/24 Acetaminophen (Acetaminophen) 325 Mg Tab, 650 MG PO Q6HP PRN for 30 Days, #240 TAB Prov:COREEN BULLARD [facility] 11/28/24 Sucralfate (Sucralfate) 1 Gm Tab, 1 TAB PO BID for 30 Days, #60 TAB Prov:COREEN BULLARD [facility] 11/28/24 Pantoprazole Sodium Sesquihydr (Pantoprazole Sodium) 40 Mg Tab, 40 MG PO DAILY for 30 Days, #30 TAB 2 Refills Prov:COREEN BULLARD [facility] 11/28/24 Sucralfate (CARAFATE SUSP) 1 Gm/10 Ml Ss, 1 GM PO BID@0600,2200 for 14 Days, #10 ML Prov:[place] RESIDENT 09/09/24 Metoclopramide Hcl (Reglan) 5 Mg Tab, 5 MG PO DAILY PRN for 30 Days, #30 TAB Prov:DEBBIE BARRAGAN [facility] 08/08/24 Insulin Glargine (Lantus) 100 Unit/Ml Inj, 80 UNIT SC HS for 96 Days, #10 ML 1 Refill Prov:ROGELIO COBB MD 06/12/24 Current Medications Current Medications Medications (Trade) Dose Ordered Sig/Adina Route PRN Reason Start Time Stop Time Status Last Admin Pantoprazole Sodium (Protonix) 40 mg BID IV 01/01/25 22:00 01/02/25 09:17 Sodium Chloride (Saline Lock Ns) 10 ml Q8HR IV 01/01/25 22:00 01/02/25 07:01 Docusate Sodium (Colace Capsule) 100 mg BIDPRN PRN PO FOR CONSTIPATION 01/01/25 16:00 Acetaminophen (Tylenol Tablet) 650 mg Q6HP PRN PO PAIN SCALE 1-3 OR TEMP>100.4 01/01/25 16:00 Acetaminophen/ Hydrocodone Bitart ([place] 5/325MG Tab) 1 tab Q4HP PRN PO MODERATE PAIN (4-6 PAIN SCALE) 01/01/25 16:00 01/02/25 12:19 Ondansetron HCl (Zofran) 4 mg Q4HP PRN IV NAUSEA / VOMITING 01/01/25 16:00 01/02/25 09:17 Sucralfate (Carafate Tab) 1 gm BID PO 01/01/25 22:00 01/02/25 09:17 Diagnostic Test (Pha) (Accu-Chek Comfort Curve T) 1 strip Q6HR 01/01/25 18:00 01/02/25 11:39 Insulin Human Regular (InsuLIN R) Q6HR SC 01/01/25 18:00 01/02/25 06:00 Dextrose 50 ml UD PRN IV Blood Sugar LESS THAN 60 01/01/25 16:00 Al Hydrox/Mg Hydrox/Simethicone (Maalox Plus) 15 ml Q8HP PRN PO FOR STOMACH DISTRESS 01/02/25 10:30 Vital Signs Vital Signs Date Time Temp Pulse Resp B/P (MAP) Pulse Ox O2 Delivery O2 Flow Rate FiO2 01/02/25 13:34 36.9 72 20 95 01/02/25 11:23 125/82 (96) 01/02/25 00:24 Room Air* 0 21 Physical Exam Generally 44 years old male, well nourished well developed. No distress HEENT-atraumatic normocephalic Heart-regular rate and rhythm Lungs clear to auscultate bilaterally Abdomen soft, tender to palpate epigastrium, nondistended Musculoskeletal-no edema cyanosis Neuro-AO x3, no focal deficits Labs/Diagnostic Data Labs Test 01/02/25 11:37 01/02/25 05:47 01/01/25 10:34 Range/Units POC Glucose 112 H 70-106 mg/dl White Blood Count 6.1 # 4.4-10.8 10^3/uL Red Blood Count 4.09 L 4.5-5.90 10^6/uL Hemoglobin 12.1 L 13.5-17.5 g/dL Hematocrit 34.5 L 41.0-53.0 % Mean Corpuscular Volume 84.3 80.0-100.0 fL Mean Corpuscular Hemoglobin 29.5 28.0-32.0 pg Mean Corpuscular Hemoglobin Concent 35.0 32.0-36.0 g/dL Red Cell Distribution Width 14.4 H 11.8-14.3 % Platelet Count 340 140-450 10^3/uL Mean Platelet Volume 6.7 L 6.9-10.8 fL Neutrophils (%) (Auto) 58.5 37.0-80.0 % Lymphocytes (%) (Auto) 32.1 10.0-50.0 % Monocytes (%) (Auto) 7.8 0.0-12.0 % Eosinophils (%) (Auto) 1.2 0.0-7.0 % Basophils (%) (Auto) 0.4 0.0-2.0 % Neutrophils # (Auto) 3.6 1.6-8.6 10 ^3/uL Lymphocytes # (Auto) 2.0 0.4-5.4 10 ^3/uL Monocytes # (Auto) 0.5 0-1.3 10 ^3/uL Eosinophils # (Auto) 0.1 0-0.8 10 ^3/uL Basophils # (Auto) 0 0-0.2 10 ^3/uL Nucleated Red Blood Cells 0.1 % Sodium Level 139 136-145 mmol/L Potassium Level 3.6 3.5-5.1 mmol/L Chloride Level 101 98-107 mmol/L Carbon Dioxide Level 29 20-31 mmol/L Anion Gap 9 5-15 Blood Urea Nitrogen 10 9-23 mg/dL Creatinine 0.83 0.700-1.30 mg/dL Glomerular Filtration Rate Calc 109 >90 mL/min BUN/Creatinine Ratio 12.0 10.0-20.0 Serum Glucose 143 H 74-106 mg/dL Calcium Level 9.5 8.7-10.4 mg/dL Total Bilirubin 0.8 0.2-1.0 mg/dL Aspartate Amino Transferase (AST) 16 13-40 U/L Alanine Aminotransferase (ALT) 16 7-40 U/L Alkaline Phosphatase 68 46-116 U/L Total Protein 6.5 5.7-8.2 g/dL Albumin 4.2 3.2-4.8 g/dL Troponin I High Sensitivity 3 L </=54 ng/L CXR negative Abdominal and pelvic CT scan in November of [address]: 1[address] evidence of acute abnormality in the abdomen and pelvis. 2. Hepatic steatosis. 3. Descending and sigmoid diverticulosis without diverticulitis. 4. Mild prostatic hyperplasia. Problems(with codes): (1) Nausea with vomiting, unspecified (2) Gastritis (3) Cyclical vomiting syndrome (4) Cannabis hyperemesis syndrome concurrent with and due to cannabis dependence Plan/Recommendation Plan Patient was counseled about discontinuing marijuana Protonix 40 mg p.o. daily, patient has a prescription Carafate 1 g p.o. twice a day Advance to soft mechanical diet Give him MiraLax 17 g p.o. daily for an upper for constipation Patient is scheduled with me for outpatient elective panendoscopy I will try to bring him into my clinic and move up the appointments for his procedure sooner Once again thank you for allowing me to participate in the care of this patient Plan discussed with: Patient, Other (Dr Wang and Dr Mujica) ANGEL PONCE MD Jan 02, 2025 13:49
--- NOTE | 2025-01-02 15:17 | DVHDSRES ---
Discharge Summary Date of Admission Resident Creating Document: COREEN BULLARD RESIDENT Jan 01, 2025 at 15:47 Date of Discharge: Jan 02, 2025 Admitting Diagnosis acute intractable abdominal pain Labs/Diagnostic Data: Laboratory Results Test 01/02/25 11:37 01/02/25 05:47 01/01/25 10:34 POC Glucose 112 mg/dl (70-106) White Blood Count 6.1 10^3/uL (4.4-10.8) Red Blood Count 4.09 10^6/uL (4.5-5.90) Hemoglobin 12.1 g/dL (13.5-17.5) Hematocrit 34.5 % (41.0-53.0) Mean Corpuscular Volume 84.3 fL (80.0-100.0) Mean Corpuscular Hemoglobin 29.5 pg (28.0-32.0) Mean Corpuscular Hemoglobin Concent 35.0 g/dL (32.0-36.0) Red Cell Distribution Width 14.4 % (11.8-14.3) Platelet Count 340 10^3/uL (140-450) Mean Platelet Volume 6.7 fL (6.9-10.8) Neutrophils (%) (Auto) 58.5 % (37.0-80.0) Lymphocytes (%) (Auto) 32.1 % (10.0-50.0) Monocytes (%) (Auto) 7.8 % (0.0-12.0) Eosinophils (%) (Auto) 1.2 % (0.0-7.0) Basophils (%) (Auto) 0.4 % (0.0-2.0) Neutrophils # (Auto) 3.6 10 ^3/uL (1.6-8.6) Lymphocytes # (Auto) 2.0 10 ^3/uL (0.4-5.4) Monocytes # (Auto) 0.5 10 ^3/uL (0-1.3) Eosinophils # (Auto) 0.1 10 ^3/uL (0-0.8) Basophils # (Auto) 0 10 ^3/uL (0-0.2) Nucleated Red Blood Cells 0.1 % Sodium Level 139 mmol/L (136-145) Potassium Level 3.6 mmol/L (3.5-5.1) Chloride Level 101 mmol/L (98-107) Carbon Dioxide Level 29 mmol/L (20-31) Anion Gap 9 (5-15) Blood Urea Nitrogen 10 mg/dL (9-23) Creatinine 0.83 mg/dL (0.700-1.30) Glomerular Filtration Rate Calc 109 mL/min (>90) BUN/Creatinine Ratio 12.0 (10.0-20.0) Serum Glucose 143 mg/dL (74-106) Calcium Level 9.5 mg/dL (8.7-10.4) Total Bilirubin 0.8 mg/dL (0.2-1.0) Aspartate Amino Transferase (AST) 16 U/L (13-40) Alanine Aminotransferase (ALT) 16 U/L (7-40) Alkaline Phosphatase 68 U/L (46-116) Total Protein 6.5 g/dL (5.7-8.2) Albumin 4.2 g/dL (3.2-4.8) Troponin I High Sensitivity 3 ng/L (</=54) Other Laboratory Tests 01/02/25 05:47 Brief Hx & Hospital Course: A 44-year-old male with a history of pancreatitis, diabetes, anxiety, depression, and chronic marijuana use presented to the ED with diffuse abdominal pain, nausea, vomiting, and melena. He was recently seen at another hospital and underwent endoscopy 2 days ago. After discharge, he developed recurrent abdominal pain and bilious emesis. Previous admission CT abdomen showed no acute findings but noted hepatic steatosis and diverticulosis. The clinical picture, combined with his ongoing marijuana use, raised concern for cannabis hyperemesis syndrome and gastritis. He remained hemodynamically stable with stable hemoglobin and hematocrit. During hospitalization, the patient was managed conservatively. He tolerated a clear liquid diet without recurrence of emesis. Psychiatry noted underlying anxiety, and he was counseled on discontinuing marijuana. He was discharged in stable condition with prescriptions for Protonix 40 mg daily, Carafate 1 g PO BID.. He was advised to follow up for his already scheduled outpatient EGD and colonoscopy, and a GI cocktail was prescribed on discharge. Generally 44 years old male, well nourished well developed. No distress HEENT-atraumatic normocephalic Heart-regular rate and rhythm Lungs clear to auscultate bilaterally Abdomen soft, tender to palpate epigastrium, nondistended Musculoskeletal-no edema cyanosis Neuro-AO x3, no focal deficits Case discussed with Dr Lopez Consults/Reason for consult GI due to melena Condition at Discharge: Stable Final Diagnosis/Problems List #Nausea with vomiting, unspecified #Gastritis #Cyclical vomiting syndrome #Cannabis hyperemesis syndrome concurrent with and due to cannabis dependence #Acute intractable Abdominal pain likely due to PUD/gastritis #GI bleeding Discharge Disposition: Home Discharge Instruct/Medications Diet: See Comment Diet comment: soft diet Activity: Light activity Follow Up/Referral: [facility], with dr trinidad Medications: see prescription Discharge Statement: "Patient was advised to return to the ER or call 911 if any headaches, dizziness, shortness of breath, chest pain, abdominal pain, bleeding, fevers, or worsening of medical condition. Patient was counseled about treatment plan, medications, possible side effects, patientverbalized understanding. All questions were answered to the best of my ability. This discharge took greater then 30 minutes in planning, reviewing documentation, counseling the patient, and discussing with other team members." ASSESSMENT ASSESSMENT Assessment gastritis Date of Service: Jan 02, 2025 Billing Provider: KANDY LOPEZ MD Common Visit Codes: 13060-STV/OBS DISCH DAY >30min COREEN BULLARD RESIDENT Jan 02, 2025 15:17 KANDY LOPEZ MD Jan 03, 2025 22:37
[2025-01-03] MEDS ORDERED: GICOCKTAIL PO (11:52)
== END 2025-01-02 15:15 | disposition home or self-care (01) | DRG 241 ==
LOC: ER 09:10 → EDBD 09:10 → OVERFLOW 15:15
PROVIDERS: ADMIT Student in an Organized Health Care Education/Training Program; ATTEND Student in an Organized Health Care Education/Training Program
DX: K29.71 Gastritis, unspecified, with bleeding (principal); E11.9 Type 2 diabetes mellitus without complications; K27.4 Chronic or unspecified peptic ulcer, site unspecified, with hemorrhage; F12.20 Cannabis dependence, uncomplicated; F32.A Depression, unspecified; F41.9 Anxiety disorder, unspecified; Z79.4 Long term (current) use of insulin; Z79.899 Other long term (current) drug therapy; Z82.0 Family history of epilepsy and other diseases of the nervous system; Z80.1 Family history of malignant neoplasm of trachea, bronchus and lung; Z83.3 Family history of diabetes mellitus; Z87.891 Personal history of nicotine dependence
CPT/HCPCS: 36415; 71045; 80053; 82962; 84484; 85025; 87081; 99291; G0378; J1815; J2405; J2470

== ENCOUNTER 2025-01-20 12:37 | Inpatient (IN) | payer MEDICAID ==
[~2025-01-20] VITALS: Ht 177.8 cm; Wt 88.3 kg
[~2025-01-20 12:37] MED LIST changes: +GICOCKTAIL PO
[2025-01-20] MEDS ORDERED: DEXTROSE (50%) 50ML SYRG IV PRN (12:45)
--- NOTE | 2025-01-20 13:07 | ED.PDOC ---
GI ASSESSMENT HPI Comments 44 year old male presents to the ED with chief complaint of abdominal pain. 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 Patient relays that he is now experiencing epigastric pain with associated nausea and vomiting. Patient states that his blood glucose read "high" this morning. Patient denies any diarrhea, chest pain, fever, chills, dizziness, headache, dysuria, or hematemesis. Chief Complaint: Nausea/Vomiting Time Seen by MD: 12:57 Primary Care Provider: unknown Reviewed Notes: Nurses Notes, Medications, Allergies Allergies: Coded Allergies: NO KNOWN ALLERGIES (Unverified , 09/21/20) Home Meds Active Scripts Alum & Mag Hydrox-Simethicone (Gi Cocktail) 55 Ml Ss, 55 ML PO TID for 30 Days, #1 ML Prov:[facility] 01/[facility]/25 Alum & Mag Hydrox-Simethicone (Gi Cocktail) 55 Ml Ss, 55 ML PO BID for 10 Days, #1 ML Prov:COREEN BULLARD [facility] 01/02/25 Ergocalciferol (VITAMIN D 93813 UNIT) 50,000 [place], [address] UNIT PO QWEEKLY for 30 Days, #4 CAP Prov:COREEN BULLARD [facility] 11/28/24 Levofloxacin Hemihydrate (LEVAQUIN 500 MG) 500 Mg Tab, 500 MG PO DAILY for 7 Days, #7 TAB Prov:COREEN BULLARD [facility] 11/28/24 Amlodipine Besylate (NORVASC TABLET) 5 Mg Tb, 5 MG PO DAILY for 30 Days, #30 TAB Prov:COREEN BULLARD [facility] 11/28/24 Acetaminophen (Acetaminophen) 325 Mg Tab, 650 MG PO Q6HP PRN for 30 Days, #240 TAB Prov:COREEN BULLARD [facility] 11/28/24 Sucralfate (Sucralfate) 1 Gm Tab, 1 TAB PO BID for 30 Days, #60 TAB Prov:COREEN BULLARD [facility] 11/28/24 Pantoprazole Sodium Sesquihydr (Pantoprazole Sodium) 40 Mg Tab, 40 MG PO DAILY for 30 Days, #30 TAB 2 Refills Prov:COREEN BULLARD [facility] 11/28/24 Sucralfate (CARAFATE SUSP) 1 Gm/10 Ml Ss, 1 GM PO BID@0600,2200 for 14 Days, #10 ML Prov:VEE SPANN RESIDENT 09/09/24 Metoclopramide Hcl (Reglan) 5 Mg Tab, 5 MG PO DAILY PRN for 30 Days, #30 TAB Prov:DEBBIE BARRAGAN RESIDENT 08/08/24 Insulin Glargine (Lantus) 100 Unit/Ml Inj, 80 UNIT SC HS for 96 Days, #10 ML 1 Refill Prov:ROGELIO COBB MD 06/12/24 Information Source: Patient Mode of Arrival: Ambulatory Timing: Days Duration: Since onset Prehospital treatment: None Quality: Aching Vomitus: Watery Stool: Normal Severity: Moderate Recent: None Recent Hx of: None Pain Location: Epigastric Modifying Factors: Nothing Associated sign and symptoms: Nausea, Vomiting, Abdominal Pain Past Medical History PAST MEDICAL HISTORY: Denies Surgical History: Denies all surgeries Family History Family History: Reviewed,noncontributory to illness, Unknown Social History Smoker: Non-Smoker Alcohol: Denies ETOH Use Drugs: Denies Drug Use Lives In: Home Constitutional: denies: chills, diaphoresis, fatigue, fever, malaise, sweats, weakness, others EENTM: denies: blurred vision, double vision, ear bleeding, ear discharge, ear drainage, ear pain, ear ringing, eye pain, eye redness, hearing loss, mouth pain, mouth swelling, nasal discharge, nose bleeding, nose congestion, nose pain, photophobia, tearing, throat pain, throat swelling, voice changes, others Respiratory: denies: cough, hemoptysis, orthopnea, SOB at rest, shortness of breath, SOB with excertion, stridor, wheezing, others Cardiovascular: denies: chest pain, dizzy spells, diaphoresis, Dyspnea on exertion, edema, irregular heart beat, left arm pain, lightheadedness, palpita tions, PND, syncope, others Gastrointestinal: reports: abdominal pain, nausea, vomiting; denies: abdomen distended, blood streaked bowels, constipated, diarrhea, dysphagia, difficulty swallowing, hematemesis, melena, poor appetite, poor fluid intake, rectal bleeding, rectal pain, others Genitourinary: denies: burning, dysuria, flank pain, frequency, hematuria, incontinence, penile discharge, penile sore, pain, testicle pain, testicle swelling, urgency, others Neurological: denies: dizziness, fainting, headache, left sided numbness, left sided weakness, numbness, paresthesia, pre-existing deficit, right sided numbness, right sided weakness, seizure, speech problems, tingling, tremors, weakness, others Musculoskeletal: denies: back pain, gout, joint pain, joint swelling, muscle pain, muscle stiffness, neck pain, others Integumetry: denies: bruises, change in color, change in hair/nails, dryness, laceration, lesions, lumps, rash, wounds, others Allergic/Immunocompromised: denies: Difficulty Healing, Frequent Infections, Hives, Itching, others Hematologic/Lymphatic: denies: anemia, blood clots, easy bleeding, easy bruising, swollen glands, others Endocrine: denies: excessive hunger, excessive sweating, excessive thirst, excessive urination, flushing, intolerance to cold, intolerance to heat, unexplained weight gain, unexplained weight loss, others Psychiatric: denies: anxiety, bipolar disorder, depression, hopeless, panic disorder, schizophrenia, sleepless, suicidal, others All Other Systems: Reviewed and Negative Physical Exam General Appearance: No Apparent Distress, Normal HEENT: Normal ENT Inspection, Pharynx Normal, TMs Normal, Other (Slightly dry mucous membranes) Neck: Full Range of Motion, Non-Tender, Normal, Normal Inspection Respiratory: Chest Non-Tender, Lungs Clear, No Accessory Muscle Use, No Respiratory Distress, Normal Breath Sounds Cardiovascular: No Edema, No JVD, No Murmur, No Gallop, Normal Peripheral Pulses, Tachycardia Breast Exam: Deferred Gastrointestinal: No Organomegaly, Non Tender, No Pulsatile Mass, Normal Bowel Sounds, Soft Genitalia: Deferred Pelvic: Deferred Rectal: Deferred Extremities: No calf tenderness, Normal capillary refill, Normal inspection, Normal range of motion, Non-tender, No pedal edema Musculoskeletal : Apperance: Normal Neurologic: Alert, leach tank tender II-XII nml as Tested, No Motor Deficits, Normal Affect, Normal Mood, No Sensory Deficits Cerebellar Function: Normal Reflexes: Normal Skin: Dry, Normal Color, Warm Lymphatic: No Adenopathy Was a procedure done? Was a procedure done?: No GI differential Dx Differential Diagnosis: Appendicitis, Bowel Obstruction, Cholecystitis, Constipation, Gastritis/PUD, Gastroenteritis, Inflammatory BD, Pancreatitis, Urinary Obstruction, UTI, Urolithiasis, Dehydration, Electrolyte Imbalance, Food Poisoning, Bacterial, Viral, Impaction, Stress Ulcer, Kidney Stone X-Ray, Labs, Meds, VS Vital Signs Date Time Temp Pulse Resp B/P (MAP) Pulse Ox O2 Delivery O2 Flow Rate FiO2 01/20/25 13:28 74 16 96 Room Air* 0 21 01/20/25 12:44 99.0 101 14 149/92 (111) 98 99.0 Lab Test 01/20/25 14:11 01/20/25 13:22 01/20/25 13:17 01/20/25 12:59 Range/Units POC Glucose 515 *H 592 *H 70-106 mg/dl Blood Gas Specimen Type Arterial Blood Gas Sample Site Right radial Blood Gas Patient Temperature 37.0 Arterial Blood Date Drawn [id number] Arterial Blood pH 7.410 7.350-7.450 Arterial Blood Partial Pressure CO2 31.4 L 35.0-48.0 mmHg Arterial Blood Partial Pressure O2 77.6 L 83.0-108.0 mmHg Arterial Blood HCO3 19.5 L 21.0-28.0 mmol/L Arterial Blood Oxygen Saturation 94.7 94.0-98.0 % Arterial Blood Base Excess -3.9 L -2.0-3.0 mmol/L Arterial Blood Oxyhemoglobin 93.8 L 94.0-98.0 % Arterial Blood Carboxyhemoglobin 0.6 0.5-1.5 % Arterial Blood Methemoglobin 0.4 0.0-1.5 % Umer Test Yes Blood Gas Total Hemoglobin 16.00 13.5-17.5 g/dL Blood Gas Modality Room air FiO2 % 21.0 White Blood Count 11.8 H 4.4-10.8 10^3/uL Red Blood Count 5.52 4.5-5.90 10^6/uL Hemoglobin 16.1 13.5-17.5 g/dL Hematocrit 46.2 41.0-53.0 % Mean Corpuscular Volume 83.7 80.0-100.0 fL Mean Corpuscular Hemoglobin 29.2 28.0-32.0 pg Mean Corpuscular Hemoglobin Concent 34.8 32.0-36.0 g/dL Red Cell Distribution Width 14.7 H 11.8-14.3 % Platelet Count 450 140-450 10^3/uL Mean Platelet Volume 7.4 6.9-10.8 fL Neutrophils (%) (Auto) 87.3 H 37.0-80.0 % Lymphocytes (%) (Auto) 8.9 L 10.0-50.0 % Monocytes (%) (Auto) 3.4 0.0-12.0 % Eosinophils (%) (Auto) 0.0 0.0-7.0 % Basophils (%) (Auto) 0.4 0.0-2.0 % Neutrophils # (Auto) 10.2 H 1.6-8.6 10 ^3/uL Lymphocytes # (Auto) 1.1 0.4-5.4 10 ^3/uL Monocytes # (Auto) 0.4 0-1.3 10 ^3/uL Eosinophils # (Auto) 0 0-0.8 10 ^3/uL Basophils # (Auto) 0.1 0-0.2 10 ^3/uL Nucleated Red Blood Cells 0.0 % Sodium Level 131 L 136-145 mmol/L Potassium Level 3.7 3.5-5.1 mmol/L Chloride Level 92 L 98-107 mmol/L Carbon Dioxide Level 20 20-31 mmol/L Anion Gap 19 H 5-15 Blood Urea Nitrogen 23 9-23 mg/dL Creatinine 2.69 H 0.700-1.30 mg/dL Glomerular Filtration Rate Calc 29 >90 mL/min BUN/Creatinine Ratio 8.6 L 10.0-20.0 Serum Glucose 572 *H 74-106 mg/dL Calcium Level 11.2 H 8.7-10.4 mg/dL Total Bilirubin 0.8 0.2-1.0 mg/dL Aspartate Amino Transferase (AST) 10 L 13-40 U/L Alanine Aminotransferase (ALT) 19 7-40 U/L Alkaline Phosphatase 138 H 46-116 U/L Total Protein 8.7 H 5.7-8.2 g/dL Albumin 5.6 H 3.2-4.8 g/dL Lipase 25 12-53 U/L Beta-Hydroxybutyric Acid 2.089 H < 0.4 mmol/L Current Medications Medications (Trade) Dose Ordered Sig/Adina Route Start Time Stop Time Status Last Admin Haloperidol Lactate (Haldol) 10 mg ONCE ONCE IM 01/20/25 12:45 01/20/25 12:49 DC 01/20/25 13:32 Diphenhydramine HCl (Benadryl Injection) 50 mg ONCE ONCE IM 01/20/25 12:45 01/20/25 12:49 DC 01/20/25 13:32 Sodium Chloride 1,000 ml @ 500 mls/hr Q2H IV 01/20/25 12:45 01/20/25 16:44 01/20/25 13:16 Insulin Human (Reg)/Sodium Chloride 100 ml @ 0.5 mls/hr Q24H IV 01/20/25 12:45 01/20/25 14:15 Diagnostic Test (Pha) (Accu-Chek Comfort Curve T) 1 strip Q90MIN 01/20/25 13:30 01/20/25 14:00 Insulin Glargine (Lantus) 15 units ONCE ONCE SC 01/20/25 12:45 01/20/25 12:50 DC 01/20/25 13:33 XR Abd: FINDINGS: Nonobstructive bowel gas pattern noted. There is no evidence for pneumoperiton eum. No abnormal calcifications noted. IMPRESSION: 1. Non-specific bowel gas pattern. Time of 1ST Reevaluation: 13:57 Reevaluation 1ST: Unchanged Patient Education/Counseling: Diagnosis, Treatment Family Education/Counseling: No Family Present Additional Information Previous visits: 01/01/25 for abdominal pain and melena The following tests were ordered, and results were reviewed by me: CBC, CMP, Lipase, Accucheck, UDS, XR Abd Additional Information was gathered from interviewing the following independent historians: None I reviewed and agreed with the following test results read by other providers: XR Abd I discussed treatment and results with medical personnel and: patient Comprehensive systems review obtained and negative except for what is stated in the HPI. pt has dka, with intractable nausea and vomiting. although marijuana use may play a part, he is unable to keep anything down by mouth. he has had similar issues in the past, with a diagnosis of gastritis. pt has been noncompliant with his treatments. the ABG may reflect a mix acid base disorder. he also has evidence of prerenal renal failure. he will be admitted for the above Departure 1 Departure Time of Disposition: 14:52 Impression: Primary Impression: DKA (diabetic ketoacidosis) Qualified Codes: E13.10 - Other specified diabetes mellitus with ketoacidosis without coma Additional Impressions: Acute renal failure Qualified Codes: N17.9 - Acute kidney failure, unspecified Intractable nausea and vomiting Dehydration Disposition: ADMITTED INPATIENT Admit to: Med Surg Condition: Serious Discharged With: Self Critical Care Note Critical Care Time?: Yes (55 min-critical care time only) Critical care comment: Due to concerns for patients condition deteriorating, the care required my highest level of attention and readiness to intervene. I assessed the patient, reviewed the medical records, ordered the appropriate tests and treatments, then reassessed for results and responsiveness. I communicated with medical personnel and consultants and formulated a plan of care. Total critical care time excludes any procedures Stability Stability form required: No Heart Score Heart Score: Heart Score Response (Comments) Value History N/A 0 EKG N/A 0 Age N/A 0 Risk Factors N/A 0 Troponin N/A 0 Total 0 I personally scribed for MARTIN KOENIG MD ([email or web address]) on 01/20/25 at 13:07. Electronically submitted by Min Collins ([email or web address]). I personally scribed for MARTIN KOENIG MD ([email or web address]) on 01/20/25 at 13:55. Electronically submitted by Min Collins ([email or web address]). MARTIN KOENIG MD January 20, 2025 13:07
[2025-01-20] MEDS: SODIUM CHLORIDE 0.9% 1,000 ML IV SCH (13:16)
[2025-01-20 13:19] LABS: Basophils # (auto) 0.1 10 ^3/uL (0-0.2); Basophils % (auto) 0.4 % (0.0-2.0); Eosinophils # (auto) 0 10 ^3/uL (0-0.8); Hematocrit 46.2 % (41.0-53.0); Hemoglobin 16.1 g/dL (13.5-17.5); Lymphocytes # (auto) 1.1 10 ^3/uL (0.4-5.4); Lymphocytes % (auto) 8.9 % (10.0-50.0); Mean Corpuscular Hemoglobin 29.2 pg (28.0-32.0); Mean Corpuscular Hgb Conc. 34.8 g/dL (32.0-36.0); Mean Corpuscular Volume 83.7 fL (80.0-100.0); Monocytes # (auto) 0.4 10 ^3/uL (0-1.3); Monocytes % (auto) 3.4 % (0.0-12.0); Neutrophils # (auto) 10.2 10 ^3/uL (1.6-8.6); Neutrophils % (auto) 87.3 % (37.0-80.0); Platelet Count (auto) 450 10^3/uL (140-450); Red Blood Cells 5.52 10^6/uL (4.5-5.90); Red Cell Distribution Width 14.7 % (11.8-14.3); White Blood Cell 11.8 10^3/uL (4.4-10.8)
[2025-01-20 13:26] LABS: Base Excess -3.9 mmol/L (-2.0-3.0)
[2025-01-20 13:28] VITALS: PULSE 74; RESP 16; O2SAT 96
[2025-01-20] MEDS: HALOPERIDOL LACTATE 5 MG/ML INJ VIAL IM ONE (13:32)
[2025-01-20] MEDS: diphenhdrAMINE HCL 50 MG/1 ML VL IM ONE (13:32)
[2025-01-20] MEDS: INSULIN LANTUS (GLARGINE) 1 /0.01ml (100units/ml) SC ONE (13:33)
--- NOTE | 2025-01-20 13:52 | DVH ---
Procedure: 2-view abdomen Exam Date: 01/20/2025 01:28 PM History: r/o free air, af level, sbo Comparison Study: None Technique: AP of the chest AP upright of the abdomen AP supine of the abdomen FINDINGS: Nonobstructive bowel gas pattern noted. There is no evidence for pneumoperitoneum. No abnormal calcif ications noted. IMPRESSION: 1. Non-specific bowel gas pattern.
[2025-01-20 13:59] LABS: Alanine Aminotransferase 19 U/L (7-40); Anion Gap 19 (5-15); BUN/Creatinine Ratio 8.6 (10.0-20.0); Carbon Dioxide 20 mmol/L (20-31); Potassium 3.7 mmol/L (3.5-5.1)
[2025-01-20 14:00] LABS: Albumin 5.6 g/dL (3.2-4.8); Alkaline Phosphatase 138 U/L (46-116); Aspartate Aminotransferase 10 U/L (13-40); Bilirubin, Total 0.8 mg/dL (0.2-1.0); Blood Urea Nitrogen 23 mg/dL (9-23); Calcium 11.2 mg/dL (8.7-10.4); Chloride 92 mmol/L (98-107); Sodium 131 mmol/L (136-145); Total Protein 8.7 g/dL (5.7-8.2)
[2025-01-20] MEDS: ACCU-CHEK COMFORT CURVE STRIP VI SCH (14:00)
[2025-01-20 14:01] LABS: Glucose 572 mg/dL (74-106)
[2025-01-20 14:11] LABS: Lipase 25 U/L (12-53)
[2025-01-20] MEDS: INSULIN DRIP 100 UNIT/100ML 100 ML IV SCH (14:15)
[2025-01-20] MEDS: SODIUM CHLORIDE 0.9% 2,200 ML IV ONE (15:00)
[2025-01-20 19:45] VITALS: PULSE 83; RESP 15; O2SAT 98
[2025-01-20] MEDS ORDERED: ACETAMINOPHEN 325 MG TAB PO PRN (20:30)
[2025-01-20] MEDS ORDERED: DOCUSATE SOD 100 MG CAP PO PRN (20:30)
[2025-01-20] MEDS: PANTOPRAZOLE 40 MG/10 ML VIAL INJ IV ONE (20:38)
[2025-01-20] MEDS: cefTRIAXone 1GM/50ML D5W 50 ML IV ONE (20:38)
[2025-01-20] MEDS: HYDROcodone-ACET 5/325MG TAB PO PRN (20:48)
--- NOTE | 2025-01-20 21:24 | DVHHP2 ---
History of Present Illness Reason for Visit: DKA (diabetic ketoacidosis) History of Present Illness The patient is a 44-year-old male with past medical history of diabetes mellitus and hypertension who presented to [facility] ED with complaint of abdominal pain. Patient reports that he was recently discharged from [facility] with gastritis, however, he did not strip picker any medications prescribed to him. Patient relays that he is now experiencing epigastric pain with associated nausea, vomiting, blood glucose read "high" this morning. Patient was seen and evaluated in the ED, laboratory data shows WBC 11.8, platelets 450, sodium 131, potassium 3.7, BUN 23, creatinine 2.69, glucose 572, acetone 2.089, protein 8.7, albumin 5.6, calcium 11.2. Patient was found to be in diabetic ketoacidosis and was started on insulin drip, please see medication orders section in the computer. On assessment, patient denied chest pain, no headache, no dizziness, no diaphoresis, no blurry vision, no shortness of breaths, no nausea or vomiting at this moment, no fever, no chills. Patient was admitted for further evaluation and medical management. Past Medical History DM, hypertension Past Surgical History Denies all surgeries Family History Reviewed, noncontributory to the management of this case. Past Social History The patient lives at home, denies smoking, alcohol or illicit drugs abuse. Review of Systems Constitutional: No: Fever, Chills, Sweats, Weakness, Malaise, Other Eyes: No: Pain, Vision change, Conjunctivae inflammation, Eyelid inflammation, Other, Redness ENT: No: Ear pain, Ear discharge, Nose pain, Nose discharge, Nose congestion, Mouth pain, Mouth swelling, Throat pain, Throat swelling, Other Respiratory: No: Cough, Dry, Shortness of breath, SOB with excertion, Wheezing, Hemoptysis, Pleuritic Pain, Sputum, Wheezing, Other Cardiovascular: No: Chest Pain, Palpitations, Orthopnea, Paroxysmal Noc. Dyspnea, Edema, Lt Headedness, Other Gastrointestinal: Nausea, Vomiting, Abdominal Pain; No: Diarrhea, Constipation, Melena, Hematochezia, Other Genitourinary: No Dysuria, No Frequency, No Incontinence, No Hematuria, No Retention, No Other Musculoskeletal: No: other, neck pain, shoulder pain, arm pain, back pain, hand pain, leg pain, foot pain Skin: No: Rash, Lesions, Jaundice, Bruising, Other Neurological: No: Weakness, Numbness, Incoordination, Change in speech, Confusion, Seizures, Other Allergies: Coded Allergies: NO KNOWN ALLERGIES (Unverified , 09/21/20) Medications Current Medications Medications Dose Ordered Sig/Adina Route Start Time Stop Time Status Last Admin Dose Admin Insulin Human (Reg)/Sodium Chloride 100 ml @ 0.5 mls/hr Q24H IV 01/20/25 12:45 01/20/25 14:15 6 MLS/HR Dextrose 50 ml UD PRN IV 01/20/25 12:45 Diagnostic Test (Pha) 1 strip Q90MIN 01/20/25 13:30 01/20/25 20:50 1 STRIP Insulin Glargine 15 units DAILY SC 01/21/25 10:00 Pantoprazole Sodium 40 mg DAILY IV 01/21/25 10:00 Ceftriaxone Sodium 50 ml @ 100 mls/hr DAILY@09 IV 01/21/25 09:00 Acetaminophen/ Hydrocodone Bitart 1 tab Q4HP PRN PO 01/20/25 20:30 01/20/25 20:48 1 TAB Ondansetron HCl 4 mg Q4HP PRN IV 01/20/25 20:30 Docusate Sodium 100 mg BIDPRN PRN PO 01/20/25 20:30 Acetaminophen 650 mg Q6HP PRN PO 01/20/25 20:30 Exam Vital Signs Vital Signs Date Time Temp Pulse Resp B/P (MAP) Pulse Ox O2 Delivery O2 Flow Rate FiO2 01/20/25 19:52 98.4 94 12 103/42 (62) 96 98.4 01/20/25 19:45 Room Air* 0 21 General Appearance: Alert, Oriented X3, Cooperative, No acute distress HEENT: Atraumatic, PERRLA, EOMI, Mucous membr. moist/pink Respiratory: Clear to auscultation, Normal air movement Cardiovascular: Regular rate, Normal S1, Normal S2, No murmurs Abdominal: Normal bowel sounds, Soft, No tenderness, No hepatospenomegaly, No masses Extremities: No clubbing, No cyanosis, No edema, Normal pulses, No tenderness/swelling Skin: No rashes, No breakdown, No significant lesion Neuro: Normal gait, Normal speech, Strength at 5/5 X4 ext, Normal tone, Sensation intact, Cranial nerves 3-12 NL, Reflexes 2+ Psych/Mental Status: Mental status NL, Mood NL Labs/Xrays Labs Test 01/20/25 20:21 01/20/25 13:22 01/20/25 12:59 Range/Units POC Glucose 150 H 70-106 mg/dl Blood Gas Specimen Type Arterial Blood Gas Sample Site Right radial Blood Gas Patient Temperature 37.0 Arterial Blood Date Drawn [id number] Arterial Blood pH 7.410 7.350-7.450 Arterial Blood Partial Pressure CO2 31.4 L 35.0-48.0 mmHg Arterial Blood Partial Pressure O2 77.6 L 83.0-108.0 mmHg Arterial Blood HCO3 19.5 L 21.0-28.0 mmol/L Arterial Blood Oxygen Saturation 94.7 94.0-98.0 % Arterial Blood Base Excess -3.9 L -2.0-3.0 mmol/L Arterial Blood Oxyhemoglobin 93.8 L 94.0-98.0 % Arterial Blood Carboxyhemoglobin 0.6 0.5-1.5 % Arterial Blood Methemoglobin 0.4 0.0-1.5 % Umer Test Yes Blood Gas Total Hemoglobin 16.00 13.5-17.5 g/dL Blood Gas Modality Room air FiO2 % 21.0 White Blood Count 11.8 H 4.4-10.8 10^3/uL Red Blood Count 5.52 4.5-5.90 10^6/uL Hemoglobin 16.1 13.5-17.5 g/dL Hematocrit 46.2 41.0-53.0 % Mean Corpuscular Volume 83.7 80.0-100.0 fL Mean Corpuscular Hemoglobin 29.2 28.0-32.0 pg Mean Corpuscular Hemoglobin Concent 34.8 32.0-36.0 g/dL Red Cell Distribution Width 14.7 H 11.8-14.3 % Platelet Count 450 140-450 10^3/uL Mean Platelet Volume 7.4 6.9-10.8 fL Neutrophils (%) (Auto) 87.3 H 37.0-80.0 % Lymphocytes (%) (Auto) 8.9 L 10.0-50.0 % Monocytes (%) (Auto) 3.4 0.0-12.0 % Eosinophils (%) (Auto) 0.0 0.0-7.0 % Basophils (%) (Auto) 0.4 0.0-2.0 % Neutrophils # (Auto) 10.2 H 1.6-8.6 10 ^3/uL Lymphocytes # (Auto) 1.1 0.4-5.4 10 ^3/uL Monocytes # (Auto) 0.4 0-1.3 10 ^3/uL Eosinophils # (Auto) 0 0-0.8 10 ^3/uL Basophils # (Auto) 0.1 0-0.2 10 ^3/uL Nucleated Red Blood Cells 0.0 % Sodium Level 131 L 136-145 mmol/L Potassium Level 3.7 3.5-5.1 mmol/L Chloride Level 92 L 98-107 mmol/L Carbon Dioxide Level 20 20-31 mmol/L Anion Gap 19 H 5-15 Blood Urea Nitrogen 23 9-23 mg/dL Creatinine 2.69 H 0.700-1.30 mg/dL Glomerular Filtration Rate Calc 29 >90 mL/min BUN/Creatinine Ratio 8.6 L 10.0-20.0 Serum Glucose 572 *H 74-106 mg/dL Calcium Level 11.2 H 8.7-10.4 mg/dL Total Bilirubin 0.8 0.2-1.0 mg/dL Aspartate Amino Transferase (AST) 10 L 13-40 U/L Alanine Aminotransferase (ALT) 19 7-40 U/L Alkaline Phosphatase 138 H 46-116 U/L Total Protein 8.7 H 5.7-8.2 g/dL Albumin 5.6 H 3.2-4.8 g/dL Lipase 25 12-53 U/L Beta-Hydroxybutyric Acid 2.089 H < 0.4 mmol/L PATIENT: ROB DOUGLAS ACCT: [id number] UNIT: [id number] : 1980 LOC: ER ROOM / BED: / AGE / SEX: 44 / M ADM STATUS: REG ER SERVICE 1244 ORDERING PHYSICIAN: MARTIN KOENIG MD PROCEDURE(s): ACABD - ACUTE AB SERIES REASON: r/o free air, af level, sbo ORDER NUMBER(s): [id number], ACCESSION NUMBER(s): [id number] Procedure: 2-view abdomen Exam Date: 01/20/2025 01:28 PM History: r/o free air, af level, sbo Comparison Study: None Technique: AP of the chest AP upright of the abdomen AP supine of the abdomen FINDINGS: Nonobstructive bowel gas pattern noted. There is no evidence for pneumoperitoneum. No abnormal calcifications noted. IMPRESSION: 1. Non-specific bowel gas pattern. Assessment/Plan Assessment/Plan DKA (diabetic ketoacidosis) Dehydration Acute renal failure Uncontrolled diabetes mellitus Acute kidney failure, unspecified Intractable nausea and vomiting Other specified diabetes mellitus with ketoacidosis without coma Plan 1. Admit to intensive care unit 2. Breathing treatment 3. Pain control management 4. Management of fluids and electrolytes 5. Consultation for hospitalist 6. Diagnostic tests chest x-ray 7. DVT prophylaxis on SCDs 8. Repeat labs CBC, CMP in a.m. 9. Continue with current medical management 10. Treatment plan discussed with patient and RN. Patient verbalized understanding. Plan discussed with: Patient, Other (RN) My Orders Orders - BURAK PAULINO DNP Procedure Category Date Status Time Pantoprazole PHA 01/21/25 In Process (Protonix) 10:00 *[facility] CONS 01/20/25 Transmitted -[place] 20:12 Ceftriaxone 1gm/50ml PHA 01/21/25 In Process D5w (Rocephin) 09:00 Allergies [place] 01/20/25 In Process 20:18 Code Status CODE 01/20/25 Transmitted 20:18 Oxygen Per Hour RT 01/20/25 Transmitted 20:18 Hydrocodone-Acet PHA 01/20/25 In Process 5/325mg Tab ([place] 20:30 Ondansetron Hcl PHA 01/20/25 In Process (Zofran) 20:30 Docusate Sodium PHA 01/20/25 In Process Capsule (Colace 20:30 Complete Blood Count LAB 01/21/25 Verified 04:00 Comprehensive LAB 01/21/25 Verified Metabolic Panel 04:00 Condition: Serious LUKE 01/20/25 In Process 20:18 Acetaminophen Tablet PHA 01/20/25 In Process (Tylenol Tablet) 20:30 Bedrest With Bathroom [place] 01/20/25 In Process Privileg 20:18 Sequential LUKE 01/20/25 In Process Compression Device Clear Liq Diet DIET 01/21/25 Transmitted Breakfast Admit ADMIT 01/20/25 Verified 21:22 Nitroglycerin PHA 01/20/25 Verified Sublingual (Ntrostat 21:30 Morphine Sulfate [facility] 01/20/25 Verified Injection 21:30 Notify Md Of Changes [facility] 01/20/25 Verified From Base 21:22 Travel Cota For [facility] 01/20/25 Verified 24 Hours 21:22 Emergency Dysrhythmia [facility] 01/20/25 Verified Protocol 21:22 Rhythm Strips Once [facility] 01/20/25 Verified Every Shift 21:22 Oxygen By Nasal 01/20/25 Verified Cannula 21:22 Problem List: (1) DKA (diabetic ketoacidosis) (2) Dehydration (3) Intractable nausea and vomiting (4) Acute renal failure (5) Uncontrolled diabetes mellitus (6) Acute kidney failure, unspecified (7) Other specified diabetes mellitus with ketoacidosis without coma Date of Service: January 20, 2025 Billing Provider: BURAK PAULINO DNP Common Visit Codes: [id number] INP/OBS CARE (HIGH) BURAK PAULINO DNP January 20, 2025 21:24
[2025-01-20] MEDS ORDERED: MORPHINE SULFATE INJ 2 MG/ml SYRG IV PRN (21:30)
[2025-01-20] MEDS ORDERED: NITROGLYCERIN 0.4 MG SL TAB SL PRN (21:30)
[2025-01-21 05:50] LABS: Basophils # (auto) 0.1 10 ^3/uL (0-0.2); Basophils % (auto) 0.7 % (0.0-2.0); Eosinophils # (auto) 0.1 10 ^3/uL (0-0.8); Eosinophils % (auto) 0.5 % (0.0-7.0); Hemoglobin 13.4 g/dL (13.5-17.5); Lymphocytes # (auto) 2.3 10 ^3/uL (0.4-5.4); Lymphocytes % (auto) 22.3 % (10.0-50.0); Mean Corpuscular Hemoglobin 28.9 pg (28.0-32.0); Mean Corpuscular Hgb Conc. 34.3 g/dL (32.0-36.0); Mean Corpuscular Volume 84.3 fL (80.0-100.0); Monocytes # (auto) 0.7 10 ^3/uL (0-1.3); Monocytes % (auto) 6.7 % (0.0-12.0); Neutrophils # (auto) 7.3 10 ^3/uL (1.6-8.6); Neutrophils % (auto) 69.8 % (37.0-80.0); Nucleated Red Blood Cells % 0.1 %; Platelet Count (auto) 363 10^3/uL (140-450); Red Blood Cells 4.63 10^6/uL (4.5-5.90); Red Cell Distribution Width 14.4 % (11.8-14.3); White Blood Cell 10.4 10^3/uL (4.4-10.8)
[2025-01-21 06:16] LABS: Alanine Aminotransferase 14 U/L (7-40); Albumin 4.1 g/dL (3.2-4.8); Alkaline Phosphatase 95 U/L (46-116); Anion Gap 11 (5-15); Aspartate Aminotransferase 27 U/L (13-40); BUN/Creatinine Ratio 13.5 (10.0-20.0); Blood Urea Nitrogen 20 mg/dL (9-23); Calcium 9.4 mg/dL (8.7-10.4); Carbon Dioxide 24 mmol/L (20-31); Chloride 101 mmol/L (98-107); Sodium 136 mmol/L (136-145); Total Protein 6.7 g/dL (5.7-8.2)
[2025-01-21 06:17] LABS: Bilirubin, Total 0.7 mg/dL (0.2-1.0)
[2025-01-21 06:28] LABS: Cannabinoid Screen, Urine Pos (NEGATIVE); Opiate Scree,Urine Pos (NEGATIVE)
[2025-01-21 06:30] LABS: Glucose 205 mg/dL (74-106); Potassium 3.3 mmol/L (3.5-5.1)
[2025-01-21 06:30] LABS: Amphetamine Screen, Urine Neg (NEGATIVE); Barbiturate Scree,Urine Neg (NEGATIVE); Benzodiazephine Screen, Urine Neg (NEGATIVE); Cocaine Screen, Urine Neg (NEGATIVE); Phencyclidine Screen, Urine Neg (NEGATIVE)
[2025-01-21] MEDS ORDERED: DEXTROSE (50%) 50ML SYRG IV PRN (07:45)
[2025-01-21] MEDS: POTASSIUM EFFERVESENT TAB 25 MEQ PO ONE (07:58)
[2025-01-21] MEDS: PANTOPRAZOLE 40 MG/10 ML VIAL INJ IV SCH (07:58)
[2025-01-21] MEDS: cefTRIAXone 1GM/50ML D5W 50 ML IV SCH (07:59)
[2025-01-21] MEDS: INSULIN LANTUS (GLARGINE) 1 /0.01ml (100units/ml) SC SCH (08:00)
[2025-01-21 08:31] VITALS: PULSE 90; RESP 19; O2SAT 95
[2025-01-21 09:57] VITALS: PULSE 75
[2025-01-21] MEDS: ACCU-CHEK COMFORT CURVE STRIP VI SCH (11:30)
[2025-01-21] MEDS: InsuLIN REG 1unit/0.01ml Soln (100units/ml) SC SCH ×2 (12:36→20:56)
[2025-01-21 14:25] VITALS: BP 131/76; PULSE 82; RESP 18; TEMP 98.5; O2SAT 97
[2025-01-21 15:11] VITALS: O2SAT 94
--- NOTE | 2025-01-21 15:49 | DVHPN2 ---
Subjective feeling better glc better now Changes from previous H/P or p: No Changes Eyes: No Pain, No Vision change, No Conjunctivae inflammation, No Eyelid inflammation, No Other, No Redness ENT: No Ear pain, No Ear discharge, No Nose pain, No Nose discharge, No Nose congestion, No Mouth pain, No Mouth swelling, No Throat pain, No Throat swelling, No Other Cardiovascular: No Chest Pain, No Palpitations, No Orthopnea, No Paroxysmal Noc. Dyspnea, No Edema, No Lt Headedness, No Other Respiratory: No Cough, No Dry, No Shortness of breath, No SOB with excertion, No Wheezing, No Hemoptysis, No Pleuritic Pain, No Sputum, No Other Gastrointestinal: Nausea, Vomiting, Abdominal Pain; No Diarrhea, No Constipation, No Melena, No Hematochezia, No Other Genitourinary: No Dysuria, No Frequency, No Incontinence, No Hematuria, No Retention, No Other Musculoskeletal: No other, No neck pain, No shoulder pain, No arm pain, No back pain, No hand pain, No leg pain, No foot pain Skin: No Rash, No Lesions, No Jaundice, No Bruising, No Other Objective Vitals Vital Signs Date Time Temp Pulse Resp B/P (MAP) Pulse Ox O2 Delivery O2 Flow Rate FiO2 01/21/25 15:11 94 Room Air* 0 21 01/21/25 09:57 75 01/21/25 08:31 19 01/21/25 07:00 118/78 (91) 01/20/25 22:00 98.4 98.4 Intake/Output Intake and Output 01/21/25 07:00 Intake Total 56 ml Balance 56 ml Intake IV Total 56 ml General Appearance: Alert, Oriented X3 Lungs: Clear to auscultation Cardiovascular: Regular rate, Normal S1, Normal S2 Medications Current Medications Medications Dose Ordered Sig/Adina Route Start Time Stop Time Status Last Admin Dose Admin Insulin Glargine 15 units DAILY SC 01/21/25 10:00 01/21/25 08:00 15 UNITS Pantoprazole Sodium 40 mg DAILY IV 01/21/25 10:00 01/21/25 07:58 40 MG Ceftriaxone Sodium 50 ml @ 100 mls/hr DAILY@09 IV 01/21/25 09:00 01/21/25 07:59 100 MLS/HR Acetaminophen/ Hydrocodone Bitart 1 tab Q4HP PRN PO 5/3/25 20:30 01/21/25 12:00 1 TAB Ondansetron HCl 4 mg Q4HP PRN IV 01/20/25 20:30 Docusate Sodium 100 mg BIDPRN PRN PO 01/20/25 20:30 Acetaminophen 650 mg Q6HP PRN PO 01/20/25 20:30 Nitroglycerin 0.4 mg Q5MINP PRN SL 01/20/25 21:30 Morphine Sulfate 2 mg Q30M PRN IV 01/20/25 21:30 Diagnostic Test (Pha) 1 strip ACHS 01/21/25 11:30 01/21/25 11:30 1 STRIP Insulin Human Regular HS SC 01/21/25 22:00 Insulin Human Regular AC SC 01/21/25 11:30 01/21/25 12:36 9 UNITS Dextrose 50 ml UD PRN IV 01/21/25 07:45 Laboratory Results Laboratory Tests 01/21/25 05:00 Chemistry Test 01/21/25 05:00 Albumin 4.1 g/dL (3.2-4.8) Calcium Level 9.4 mg/dL (8.7-10.4) Total Protein 6.7 g/dL (5.7-8.2) LFT Test 01/21/25 05:00 Alanine Aminotransferase (ALT) 14 U/L (7-40) Alkaline Phosphatase 95 U/L (46-116) Aspartate Amino Transferase (AST) 27 U/L (13-40) Total Bilirubin 0.7 mg/dL (0.2-1.0) Assessment/Plan Assessment/Plan DKA (diabetic ketoacidosis) Dehydration Acute renal failure Uncontrolled diabetes mellitus Acute kidney injury due to ATN Intractable nausea and vomiting Other specified diabetes mellitus with ketoacidosis without coma AG closed continue short and long acting IVF for hydration monitor BMP Plan discussed with: Patient Date of Service: January 21, 2025 Billing Provider: JOSÉ LUIS VAUGHAN MD Common Visit Codes: [id number] INP/OBS CARE(HIGH) JOSÉ LUIS VAUGHAN MD January 21, 2025 15:49
[2025-01-21 17:00] VITALS: BP 126/77; PULSE 82; RESP 17; TEMP 97.8; O2SAT 99
[2025-01-21 21:00] VITALS: BP 110/72; PULSE 80; RESP 16; TEMP 98.4; O2SAT 97
[2025-01-22] VITALS (7 sets, daily range): BP systolic 116–159; BP diastolic 77–103; PULSE 68–80; RESP 16–18; TEMP 97.6–98.8; O2SAT 98–100
[2025-01-22] MEDS: ONDANSETRON HCL 4 MG/2 ML VIAL IV PRN (00:48)
[2025-01-22 09:02] LABS: Urine Bacteria None Seen /hpf (None Seen)
--- NOTE | 2025-01-22 09:19 | DVHCONRES ---
Date Seen: January 22, 2025 Resident Creating Document: THOMAS ADASM RESIDENT Referring Physician Juan History of Present Illness Mr. Palmer is a 44-year-old male with past medical history of gastritis, diabetes mellitus type 2 for the past 14 years, marijuana use, anxiety and depression, who presented to the ER on 01/20 with a chief complaint of intractable nausea/vomiting and uncontrolled hyperglycemia. Patient was seen in this facility for gastritis when he was discharged with pantoprazole. Patient did not receive his medications and reported worsening nausea and vomiting starting 01/18. Patient could not tolerate any solid or liquid diet. He reports compliance to insulin Humalog 3 times daily. Patient has not been taking any Lantus since December, he reports that Ludmila Maravilla stopped it. Associated symptoms include increased urinary frequency but denies dysuria, hematuria. Past medical history: Gastritis, diabetes mellitus type 1, marijuana, anxiety, depression Past surgical history: Neck surgery Home medication: Insulin Humalog thrice daily Social history, lives with daughter, quit smoking, tobacco, quit marijuana use, denies drinking, quit methamphetamine 5 years ago Nephrology was consulted for acute renal failure. He was diagnosed with DKA, received IV insulin which was later switched to moderate sliding scale and Lantus 15 units. Patient is receiving IV ceftriaxone. Patient seen and examined at the bedside. Mild right lower quadrant abdominal pain. Urinalysis unremarkable, FENA 0..2. Labs reviewed, show potassium 3.2. BUN/creatinine 23/2.6 to 12/0.8 Family History: Alzheimer's disease G8 FATHER Diabetes mellitus G8 BROTHER FH: lung cancer G8 MOTHER, Onset:Unknown Allergies: Coded Allergies: NO KNOWN ALLERGIES (Unverified , 09/21/20) Home Meds Active Scripts Alum & Mag Hydrox-Simethicone (Gi Cocktail) 55 Ml Ss, 55 ML PO TID for 30 Days, #1 ML Prov:COREEN BULLARD 01/03/25 Alum & Mag Hydrox-Simethicone (Gi Cocktail) 55 Ml Ss, 55 ML PO BID for 10 Days, #1 ML Prov:COREEN BULLARD 01/02/25 Ergocalciferol (VITAMIN D 40718 UNIT) 50,000 [place], [address] UNIT PO QWEEKLY for 30 Days, #4 CAP Prov:COREEN BULLARD 11/28/24 Levofloxacin Hemihydrate (LEVAQUIN 500 MG) 500 Mg Tab, 500 MG PO DAILY for 7 Days, #7 TAB Prov:COREEN BULLARD [facility] 11/28/24 Amlodipine Besylate (NORVASC TABLET) 5 Mg Tb, 5 MG PO DAILY for 30 Days, #30 TAB Prov:COREEN BULLARD [facility] 11/28/24 Acetaminophen (Acetaminophen) 325 Mg Tab, 650 MG PO Q6HP PRN for 30 Days, #240 TAB [facility] 11/28/24 Sucralfate (Sucralfate) 1 Gm Tab, 1 TAB PO BID for 30 Days, #60 TAB [facility] 11/28/24 Pantoprazole Sodium Sesquihydr (Pantoprazole Sodium) 40 Mg Tab, 40 MG PO DAILY for 30 Days, #30 TAB 2 [facility]ills [facility] 11/28/24 Sucralfate (CARAFATE SUSP) 1 Gm/10 Ml Ss, 1 GM PO BID@0600,2200 for 14 Days, #10 ML Prov:VEE SPANN [facility] 09/09/24 Metoclopramide Hcl (Reglan) 5 Mg Tab, 5 MG PO DAILY PRN for 30 Days, #30 TAB Prov:DEBBIE BARRAGAN [facility] 08/08/24 Insulin Glargine (Lantus) 100 Unit/Ml Inj, 80 UNIT SC HS for 96 Days, #10 ML 1 Refill Prov:ROGELIO COBB MD 06/12/24 Current Medications Current Medications Medications (Trade) Dose Ordered Sig/Adina Route PRN Reason Start Time Stop Time Status Last Admin Insulin Glargine (Lantus) 15 units DAILY SC 01/21/25 10:00 01/21/25 08:00 Pantoprazole Sodium (Protonix) 40 mg DAILY IV 01/21/25 10:00 01/21/25 07:58 Diagnostic Test (Pha) (Accu-Chek Comfort Curve T) 1 strip ACHS 01/21/25 11:30 01/22/25 05:45 Insulin Human Regular (InsuLIN R) HS SC 01/21/25 22:00 Insulin Human Regular (InsuLIN R) AC SC 01/21/25 11:30 01/22/25 05:47 Potassium Chloride 50 ml @ 25 mls/hr Q2H IV 01/22/25 09:15 01/22/25 13:14 Sodium Chloride 100 ml @ 50 mls/hr Q2H IV 01/22/25 09:15 01/22/25 13:14 Vital Signs Vital Signs Date Time Temp Pulse Resp B/P (MAP) Pulse Ox O2 Delivery O2 Flow Rate FiO2 01/22/25 05:00 97.6 68 16 133/84 (100) 98 97.6 01/21/25 20:00 Room Air* 0 21 Physical Exam Patient sitting comfortably in the bed, no acute distress s General: Well-built, afebrile, mucosae are moist Cardiovascular: Regular S1 and S2. No murmurs, gallops or rubs. No JVD elevation. No pedal edema Respiratory: Normal B/L air entry on room air. Clear lung sounds on auscultation Abdomen: Soft, nontender, nondistended, normoactive bowel sounds, no rebound tenderness, no organomegaly, no masses Genitourinary: Deferred MSK/skin: Mobilizes 4 limbs. Skin is dry and warm Neurological: No motor, no sensitive deficits, normal speech. Pupils are isocoric and reactive. Psych/Mental Status: A/Ox3 Labs/Diagnostic Data Labs Test 01/22/25 08:55 01/22/25 05:37 01/21/25 06:04 01/21/25 05:00 Range/Units POC Glucose 155 H 70-106 mg/dl Urine Opiates Screen Pos NEGATIVE Urine Fentanyl Screen Neg NEGATIVE Urine Barbiturates Screen Neg NEGATIVE Urine Phencyclidine Screen Neg NEGATIVE Urine Amphetamines Screen Neg NEGATIVE Urine Benzodiazepines Screen Neg NEGATIVE Urine Cocaine Screen Neg NEGATIVE Urine Cannabinoids Screen Pos NEGATIVE White Blood Count 10.4 4.4-10.8 10^3/uL Red Blood Count 4.63 4.5-5.90 10^6/uL Hemoglobin 13.4 #L 13.5-17.5 g/dL Hematocrit 39.0 #L 41.0-53.0 % Mean Corpuscular Volume 84.3 80.0-100.0 fL Mean Corpuscular Hemoglobin 28.9 28.0-32.0 pg Mean Corpuscular Hemoglobin Concent 34.3 32.0-36.0 g/dL Red Cell Distribution Width 14.4 H 11.8-14.3 % Platelet Count 363 140-450 10^3/uL Mean Platelet Volume 7.3 6.9-10.8 fL Neutrophils (%) (Auto) 69.8 37.0-80.0 % Lymphocytes (%) (Auto) 22.3 10.0-50.0 % Monocytes (%) (Auto) 6.7 0.0-12.0 % Eosinophils (%) (Auto) 0.5 0.0-7.0 % Basophils (%) (Auto) 0.7 0.0-2.0 % Neutrophils # (Auto) 7.3 1.6-8.6 10 ^3/uL Lymphocytes # (Auto) 2.3 0.4-5.4 10 ^3/uL Monocytes # (Auto) 0.7 0-1.3 10 ^3/uL Eosinophils # (Auto) 0.1 0-0.8 10 ^3/uL Basophils # (Auto) 0.1 0-0.2 10 ^3/uL Nucleated Red Blood Cells 0.1 % Sodium Level 136 # 136-145 mmol/L Potassium Level 3.3 L 3.5-5.1 mmol/L Chloride Level 101 98-107 mmol/L Carbon Dioxide Level 24 20-31 mmol/L Anion Gap 11 5-15 Blood Urea Nitrogen 20 9-23 mg/dL Creatinine 1.48 H 0.700-1.30 mg/dL Glomerular Filtration Rate Calc 59 >90 mL/min BUN/Creatinine Ratio 13.5 10.0-20.0 Serum Glucose 205 #H 74-106 mg/dL Calcium Level 9.4 8.7-10.4 mg/dL Total Bilirubin 0.7 0.2-1.0 mg/dL Aspartate Amino Transferase (AST) 27 13-40 U/L Alanine Aminotransferase (ALT) 14 7-40 U/L Alkaline Phosphatase 95 46-116 U/L Total Protein 6.7 5.7-8.2 g/dL Albumin 4.1 3.2-4.8 g/dL Test 01/20/25 13:22 01/20/25 12:59 Range/Units Blood Gas Specimen Type Arterial Blood Gas Sample Site Right radial Blood Gas Patient Temperature 37.0 Arterial Blood Date Drawn [id number] Arterial Blood pH 7.410 7.350-7.450 Arterial Blood Partial Pressure CO2 31.4 L 35.0-48.0 mmHg Arterial Blood Partial Pressure O2 77.6 L 83.0-108.0 mmHg Arterial Blood HCO3 19.5 L 21.0-28.0 mmol/L Arterial Blood Oxygen Saturation 94.7 94.0-98.0 % Arterial Blood Base Excess -3.9 L -2.0-3.0 mmol/L Arterial Blood Oxyhemoglobin 93.8 L 94.0-98.0 % Arterial Blood Carboxyhemoglobin 0.6 0.5-1.5 % Arterial Blood Methemoglobin 0.4 0.0-1.5 % Umer Test Yes Blood Gas Total Hemoglobin 16.00 13.5-17.5 g/dL Blood Gas Modality Room air FiO2 % 21.0 Lipase 25 12-53 U/L Beta-Hydroxybutyric Acid 2.089 H < 0.4 mmol/L Assessment Acute kidney injury, likely prerenal -resolved Diabetic ketoacidosis in the setting of uncontrolled diabetes type 2-hemoglobin A1c 9.4 11/26/24 Anion gap acidosis secondary to above Hyponatremia Hypokalemia Leukocytosis, likely reactive Gastritis Cannabis dependence Plan: Given the resolved anion gap, BUN/creatinine 12/0.8, the patient tolerating diet, there is no nephrology workup indicated at this time. We will sign off. Thank you for the consultation. Please reconsult if deemed necessary. BUN/creatinine 23/2.6 to 12/0.8 IV insulin discontinued Continue moderate sliding scale and 15 units Lantus per primary 40 mEq IV potassium replenish, magnesium WNL Plan discussed with patient in which all questions have been answered Case discussed with Dr. Burk Addendum Patient seen and examined, plan discussed with resident. Plan discussed with: Patient THOMAS ADAMS RESIDENT January 22, 2025 09:19 MARKUS BURK MD January 22, 2025 15:26
[2025-01-22 09:22] LABS: Protein, Urine 32.2 mg/dL (1-14)
[2025-01-22 09:25] LABS: Creatinine, Urine 209.84 mg/dL (30.0-125.0); Urine Blood Negative /uL (Negative); Urine Clarity Clear (Clear); Urine Color Yellow (Yellow); Urine Protein, UAD TRACE (Negative); Urine Protein/Creatinine Ratio 0.15; Urine Specific Gravity 1.031 (1.001-1.035); Urine Squamous Epithelial Cell FEW /hpf (<5); Urine Urobilinogen Normal (Negative); Urine WBC 1 /HPF (0-3)
[2025-01-22] MEDS: POTASSIUM CHL 20MEQ/50ML 50 ML IV SCH (09:39)
[2025-01-22] MEDS: SODIUM CHL 0.9% 100 ML IV SCH (09:39)
[2025-01-22 11:00] LABS: Basophils # (auto) 0 10 ^3/uL (0-0.2); Basophils % (auto) 0.4 % (0.0-2.0); Eosinophils # (auto) 0.1 10 ^3/uL (0-0.8); Hematocrit 42.5 % (41.0-53.0); Hemoglobin 14.3 g/dL (13.5-17.5); Lymphocytes # (auto) 2.2 10 ^3/uL (0.4-5.4); Lymphocytes % (auto) 36.2 % (10.0-50.0); Mean Corpuscular Hemoglobin 28.6 pg (28.0-32.0); Mean Corpuscular Hgb Conc. 33.6 g/dL (32.0-36.0); Monocytes # (auto) 0.3 10 ^3/uL (0-1.3); Monocytes % (auto) 5.6 % (0.0-12.0); Neutrophils # (auto) 3.4 10 ^3/uL (1.6-8.6); Neutrophils % (auto) 56.8 % (37.0-80.0); Nucleated Red Blood Cells % 0.2 %; Platelet Count (auto) 375 10^3/uL (140-450); Red Blood Cells 5.01 10^6/uL (4.5-5.90); Red Cell Distribution Width 14.6 % (11.8-14.3); White Blood Cell 6.1 10^3/uL (4.4-10.8)
[2025-01-22 11:17] LABS: Alanine Aminotransferase 18 U/L (7-40); Albumin 4.5 g/dL (3.2-4.8); Alkaline Phosphatase 91 U/L (46-116); Anion Gap 8 (5-15); Aspartate Aminotransferase 25 U/L (13-40); BUN/Creatinine Ratio 13.6 (10.0-20.0); Blood Urea Nitrogen 12 mg/dL (9-23); Calcium 9.4 mg/dL (8.7-10.4); Carbon Dioxide 29 mmol/L (20-31); Chloride 101 mmol/L (98-107); Sodium 138 mmol/L (136-145); Total Protein 7.1 g/dL (5.7-8.2)
[2025-01-22 11:18] LABS: Bilirubin, Total 0.6 mg/dL (0.2-1.0); Glucose 119 mg/dL (74-106); Potassium 3.2 mmol/L (3.5-5.1)
--- NOTE | 2025-01-22 15:41 | MEDREC ---
[facility] ASP Intervention Section I [facility] ASP Intervention: Review courses of therapy (PLEASE CONSIDER D/C ANTIBIOTIC(S) IN ABSENCE OF BACTERIAL INFECTION) ANAHY DOZIER PHARMACIST January 22, 2025 15:41
--- NOTE | 2025-01-22 19:24 | DVHPN2 ---
Subjective Seen and examined at bedside. Monitor blood sugars. Changes from previous H/P or p: No Changes Eyes: No Pain, No Vision change, No Conjunctivae inflammation, No Eyelid inflammation, No Other, No Redness ENT: No Ear pain, No Ear discharge, No Nose pain, No Nose discharge, No Nose congestion, No Mouth pain, No Mouth swelling, No Throat pain, No Throat swelling, No Other Cardiovascular: No Chest Pain, No Palpitations, No Orthopnea, No Paroxysmal Noc. Dyspnea, No Edema, No Lt Headedness, No Other Respiratory: No Cough, No Dry, No Shortness of breath, No SOB with excertion, No Wheezing, No Hemoptysis, No Pleuritic Pain, No Sputum, No Other Gastrointestinal: No Nausea, No Vomiting, No Abdominal Pain, No Diarrhea, No Constipation, No Melena, No Hematochezia, No Other Genitourinary: No Dysuria, No Frequency, No Incontinence, No Hematuria, No Retention, No Other Musculoskeletal: No other, No neck pain, No shoulder pain, No arm pain, No back pain, No hand pain, No leg pain, No foot pain Skin: No Rash, No Lesions, No Jaundice, No Bruising, No Other Objective Vitals Vital Signs Date Time Temp Pulse Resp B/P (MAP) Pulse Ox O2 Delivery O2 Flow Rate FiO2 01/22/25 16:30 97.8 73 18 146/84 (104) 100 97.8 01/22/25 08:00 Room Air* 0 21 Intake/Output Intake and Output 01/22/25 07:00 Intake Total 995 ml Balance 995 ml Intake Oral 945 ml IV Total 50 ml # Voids 3 General Appearance: Alert, Oriented X3 Lungs: Clear to auscultation Cardiovascular: Regular rate, Normal S1, Normal S2 Medications Current Medications Medications Dose Ordered Sig/Adina Route Start Time Stop Time Status Last Admin Dose Admin Insulin Glargine 15 units DAILY SC 01/21/25 10:00 01/22/25 09:47 15 UNITS Pantoprazole Sodium 40 mg DAILY IV 01/21/25 10:00 01/21/25 07:58 40 MG Ceftriaxone Sodium 50 ml @ 100 mls/hr DAILY@09 IV 01/21/25 09:00 01/22/25 08:36 100 MLS/HR Acetaminophen/ Hydrocodone Bitart 1 tab Q4HP PRN PO 01/20/25 20:30 01/22/25 18:39 1 TAB Ondansetron HCl 4 mg Q4HP PRN IV 01/20/25 20:30 01/22/25 15:36 4 MG Docusate Sodium 100 mg BIDPRN PRN PO 01/20/25 20:30 Acetaminophen 650 mg Q6HP PRN PO 01/20/25 20:30 Nitroglycerin 0.4 mg Q5MINP PRN SL 01/20/25 21:30 Morphine Sulfate 2 mg Q30M PRN IV 01/20/25 21:30 Diagnostic Test (Pha) 1 strip ACHS 01/21/25 11:30 01/22/25 17:04 1 STRIP Insulin Human Regular HS SC 01/21/25 22:00 Insulin Human Regular AC SC 01/21/25 11:30 01/22/25 17:05 3 UNITS Dextrose 50 ml UD PRN IV 01/21/25 07:45 Laboratory Results Laboratory Tests 01/22/25 09:13 Chemistry Test 01/22/25 09:13 Albumin 4.5 g/dL (3.2-4.8) Calcium Level 9.4 mg/dL (8.7-10.4) Magnesium Level 2.0 mg/dL (1.6-2.6) Total Protein 7.1 g/dL (5.7-8.2) LFT Test 01/22/25 09:13 Alanine Aminotransferase (ALT) 18 U/L (7-40) Alkaline Phosphatase 91 U/L (46-116) Aspartate Amino Transferase (AST) 25 U/L (13-40) Total Bilirubin 0.6 mg/dL (0.2-1.0) Urinalysis Test 01/22/25 08:55 Urine Color Yellow (Yellow) Urine Clarity Clear (Clear) Urine pH 6.0 (5.0-9.0) Urine Specific [place] 1.031 (1.001-1.035) Urine Protein Trace (Negative) H Urine Ketones Negative (Negative) Urine Blood Negative /uL (Negative) Urine Nitrite Negative (Negative) Urine Bilirubin Negative (Negative) Urine Urobilinogen Normal mg/dL (Negative) Urine Leukocyte Esterase Negative /uL (Negative) Urine RBC <1 /hpf (0 - 3) Urine Microscopic WBC 1 /HPF (0-3) Urine Squamous Epithelial Cells Few /hpf (<5) Urine Bacteria None seen /hpf (None Seen) Urine Osmolality 899 mOsm/kg Urine Creatinine 209.84 mg/dL (30.0-125.0) H Urine Protein/Creatinine Ratio 0.15 Urine Sodium 80 mmol/L (40-220) Urine Glucose 3+ mg/dL (Normal) H Urine Total Protein 32.2 mg/dL (1-14) H Assessment/Plan Assessment/Plan DKA (diabetic ketoacidosis) A1c 9.4 Dehydration Acute renal failure due to VMN Uncontrolled diabetes mellitus Intractable nausea and vomiting Other specified diabetes mellitus with ketoacidosis without coma Plan: Counseled on tight glycemic control, diet and exercise. Cont Insulin Plan discussed with: Patient Date of Service: January 22, 2025 Billing Provider: HERNANDEZ RETANA MD Common Visit Codes: [id number] INP/OBS CARE(HIGH) HERNANDEZ RETANA MD January 22, 2025 19:24
[2025-01-23 01:00] VITALS: BP 129/78; PULSE 79; RESP 18; TEMP 98.4; O2SAT 100
[2025-01-23 05:00] VITALS: BP 132/77; PULSE 71; RESP 18; TEMP 98.3; O2SAT 100
[2025-01-23 09:00] VITALS: BP 147/89; PULSE 81; RESP 16; TEMP 98.6; O2SAT 99
[2025-01-23 09:43] LABS: Chloride 100 mmol/L (98-107); Potassium 4.1 mmol/L (3.5-5.1); Sodium 136 mmol/L (136-145)
[2025-01-23 09:44] LABS: Anion Gap 7 (5-15); Calcium 9.4 mg/dL (8.7-10.4); Carbon Dioxide 29 mmol/L (20-31)
[2025-01-23 09:49] LABS: BUN/Creatinine Ratio 8.4 (10.0-20.0)
[2025-01-23 09:50] LABS: Blood Urea Nitrogen 8 mg/dL (9-23); Glucose 272 mg/dL (74-106)
--- NOTE | 2025-01-23 11:22 | DVHPN2 ---
Eyes: No Pain, No Vision change, No Conjunctivae inflammation, No Eyelid inflammation, No Other, No Redness ENT: No Ear pain, No Ear discharge, No Nose pain, No Nose discharge, No Nose congestion, No Mouth pain, No Mouth swelling, No Throat pain, No Throat swelling, No Other Cardiovascular: No Chest Pain, No Palpitations, No Orthopnea, No Paroxysmal Noc. Dyspnea, No Edema, No Lt Headedness, No Other Respiratory: No Cough, No Dry, No Shortness of breath, No SOB with excertion, No Wheezing, No Hemoptysis, No Pleuritic Pain, No Sputum, No Other Gastrointestinal: No Nausea, No Vomiting, No Abdominal Pain, No Diarrhea, No Constipation, No Melena, No Hematochezia, No Other Genitourinary: No Dysuria, No Frequency, No Incontinence, No Hematuria, No Retention, No Other Musculoskeletal: No other, No neck pain, No shoulder pain, No arm pain, No back pain, No hand pain, No leg pain, No foot pain Skin: No Rash, No Lesions, No Jaundice, No Bruising, No Other Objective Vitals Vital Signs Date Time Temp Pulse Resp B/P (MAP) Pulse Ox O2 Delivery O2 Flow Rate FiO2 01/23/25 09:00 98.6 81 16 147/89 (108) 99 98.6 01/23/25 07:50 Room Air* 0 21 Intake/Output Intake and Output 01/23/25 07:00 Intake Total 1475 ml Balance 1475 ml Intake Oral 1125 ml IV Total 350 ml # Voids 7 General Appearance: Alert, Oriented X3 Lungs: Clear to auscultation Cardiovascular: Regular rate, Normal S1, Normal S2 Medications Current Medications Medications Dose Ordered Sig/Adina Route Start Time Stop Time Status Last Admin Dose Admin Insulin Glargine 15 units DAILY SC 01/21/25 10:00 01/23/25 08:54 15 UNITS Pantoprazole Sodium 40 mg DAILY IV 01/21/25 10:00 01/23/25 08:44 40 MG Ceftriaxone Sodium 50 ml @ 100 mls/hr DAILY@09 IV 01/21/25 09:00 01/23/25 08:44 100 MLS/HR Acetaminophen/ Hydrocodone Bitart 1 tab Q4HP PRN PO 01/20/25 20:30 01/23/25 06:15 1 TAB Ondansetron HCl 4 mg Q4HP PRN IV 01/20/25 20:30 01/23/25 06:15 4 MG Docusate Sodium 100 mg BIDPRN PRN PO 01/20/25 20:30 Acetaminophen 650 mg Q6HP PRN PO 01/20/25 20:30 Nitroglycerin 0.4 mg Q5MINP PRN SL 01/20/25 21:30 Morphine Sulfate 2 mg Q30M PRN IV 01/20/25 21:30 Diagnostic Test (Pha) 1 strip ACHS 01/21/25 11:30 01/23/25 06:09 1 STRIP Insulin Human Regular HS SC 01/21/25 22:00 01/22/25 21:27 3 UNITS Insulin Human Regular AC SC 01/21/25 11:30 01/23/25 06:11 6 UNITS Dextrose 50 ml UD PRN IV 01/21/25 07:45 Laboratory Results Laboratory Tests 01/22/25 09:13 01/23/25 09:21 Chemistry Test 01/23/25 09:21 Calcium Level 9.4 mg/dL (8.7-10.4) Urinalysis Test 01/22/25 08:55 Urine Color Yellow (Yellow) Urine Clarity Clear (Clear) Urine pH 6.0 (5.0-9.0) Urine Specific [place] 1.031 (1.001-1.035) Urine Protein Trace (Negative) H Urine Ketones Negative (Negative) Urine Blood Negative /uL (Negative) Urine Nitrite Negative (Negative) Urine Bilirubin Negative (Negative) Urine Urobilinogen Normal mg/dL (Negative) Urine Leukocyte Esterase Negative /uL (Negative) Urine RBC <1 /hpf (0 - 3) Urine Microscopic WBC 1 /HPF (0-3) Urine Squamous Epithelial Cells Few /hpf (<5) Urine Bacteria None seen /hpf (None Seen) Urine Osmolality 899 mOsm/kg Urine Creatinine 209.84 mg/dL (30.0-125.0) H Urine Protein/Creatinine Ratio 0.15 Urine Sodium 80 mmol/L (40-220) Urine Glucose 3+ mg/dL (Normal) H Urine Total Protein 32.2 mg/dL (1-14) H LORRAINE ACEVEDO MD January 23, 2025 11:22
[2025-01-23] MEDS ORDERED: PANT40T PO (12:33)
[2025-01-23] MEDS ORDERED: INSLANTI SC (12:33)
[2025-01-23] MEDS ORDERED: METO5TAB67 PO (12:33)
[2025-01-23] MEDS ORDERED: AML5T PO (12:33)
[2025-01-23] MEDS ORDERED: SUCR1SUS26 PO (12:33)
--- NOTE | 2025-01-23 12:35 | DVHDS2 ---
Discharge Summary Date of Admission January 20, 2025 at 21:22 Date of Discharge: January 23, 2025 Admitting Diagnosis DKA (diabetic ketoacidosis) A1c 9.4 Dehydration Acute renal failure due to VMN Uncontrolled diabetes mellitus Intractable nausea and vomiting Other specified diabetes mellitus with ketoacidosis without coma Labs/Diagnostic Data: Laboratory Results Test 01/23/25 11:23 01/23/25 09:21 01/22/25 09:13 01/22/25 08:55 POC Glucose 153 mg/dl (70-106) Sodium Level 136 mmol/L (136-145) Potassium Level 4.1 mmol/L (3.5-5.1) Chloride Level 100 mmol/L (98-107) Carbon Dioxide Level 29 mmol/L (20-31) Anion Gap 7 (5-15) Blood Urea Nitrogen 8 mg/dL (9-23) Creatinine 0.95 mg/dL (0.700-1.30) Glomerular Filtration Rate Calc 100 mL/min (>90) BUN/Creatinine Ratio 8.4 (10.0-20.0) Serum Glucose 272 mg/dL (74-106) Calcium Level 9.4 mg/dL (8.7-10.4) White Blood Count 6.1 10^3/uL (4.4-10.8) Red Blood Count 5.01 10^6/uL (4.5-5.90) Hemoglobin 14.3 g/dL (13.5-17.5) Hematocrit 42.5 % (41.0-53.0) Mean Corpuscular Volume 85.0 fL (80.0-100.0) Mean Corpuscular Hemoglobin 28.6 pg (28.0-32.0) Mean Corpuscular Hemoglobin Concent 33.6 g/dL (32.0-36.0) Red Cell Distribution Width 14.6 % (11.8-14.3) Platelet Count 375 10^3/uL (140-450) Mean Platelet Volume 7.4 fL (6.9-10.8) Neutrophils (%) (Auto) 56.8 % (37.0-80.0) Lymphocytes (%) (Auto) 36.2 % (10.0-50.0) Monocytes (%) (Auto) 5.6 % (0.0-12.0) Eosinophils (%) (Auto) 1.0 % (0.0-7.0) Basophils (%) (Auto) 0.4 % (0.0-2.0) Neutrophils # (Auto) 3.4 10 ^3/uL (1.6-8.6) Lymphocytes # (Auto) 2.2 10 ^3/uL (0.4-5.4) Monocytes # (Auto) 0.3 10 ^3/uL (0-1.3) Eosinophils # (Auto) 0.1 10 ^3/uL (0-0.8) Basophils # (Auto) 0 10 ^3/uL (0-0.2) Nucleated Red Blood Cells 0.2 % Serum Osmolality 293 mOsm/kg (278-298) Magnesium Level 2.0 mg/dL (1.6-2.6) Total Bilirubin 0.6 mg/dL (0.2-1.0) Aspartate Amino Transferase (AST) 25 U/L (13-40) Alanine Aminotransferase (ALT) 18 U/L (7-40) Alkaline Phosphatase 91 U/L (46-116) Total Protein 7.1 g/dL (5.7-8.2) Albumin 4.5 g/dL (3.2-4.8) Urine Color Yellow (Yellow) Urine Clarity Clear (Clear) Urine pH 6.0 (5.0-9.0) Urine Specific [place] 1.031 (1.001-1.035) Urine Protein Trace (Negative) Urine Ketones Negative (Negative) Urine Blood Negative /uL (Negative) Urine Nitrite Negative (Negative) Urine Bilirubin Negative (Negative) Urine Urobilinogen Normal mg/dL (Negative) Urine Leukocyte Esterase Negative /uL (Negative) Urine RBC <1 /hpf (0 - 3) Urine Microscopic WBC 1 /HPF (0-3) Urine Squamous Epithelial Cells Few /hpf (<5) Urine Bacteria None seen /hpf (None Seen) Urine Osmolality 899 mOsm/kg Urine Creatinine 209.84 mg/dL (30.0-125.0) Urine Protein/Creatinine Ratio 0.15 Urine Sodium 80 mmol/L (40-220) Urine Glucose 3+ mg/dL (Normal) Urine Total Protein 32.2 mg/dL (1-14) Test 01/21/25 06:04 01/20/25 13:22 01/20/25 12:59 Urine Opiates Screen Pos (NEGATIVE) Urine Fentanyl Screen Neg (NEGATIVE) Urine Barbiturates Screen Neg (NEGATIVE) Urine Phencyclidine Screen Neg (NEGATIVE) Urine Amphetamines Screen Neg (NEGATIVE) Urine Benzodiazepines Screen Neg (NEGATIVE) Urine Cocaine Screen Neg (NEGATIVE) Urine Cannabinoids Screen Pos (NEGATIVE) Blood Gas Specimen Type Arterial Blood Gas Sample Site Right radial Blood Gas Patient Temperature 37.0 Arterial Blood Date Drawn [id number] Arterial Blood pH 7.410 (7.350-7.450) Arterial Blood Partial Pressure CO2 31.4 mmHg (35.0-48.0) Arterial Blood Partial Pressure O2 77.6 mmHg (83.0-108.0) Arterial Blood HCO3 19.5 mmol/L (21.0-28.0) Arterial Blood Oxygen Saturation 94.7 % (94.0-98.0) Arterial Blood Base Excess -3.9 mmol/L (-2.0-3.0) Arterial Blood Oxyhemoglobin 93.8 % (94.0-98.0) Arterial Blood Carboxyhemoglobin 0.6 % (0.5-1.5) Arterial Blood Methemoglobin 0.4 % (0.0-1.5) Umer Test Yes Blood Gas Total Hemoglobin 16.00 g/dL (13.5-17.5) Blood Gas Modality Room air FiO2 % 21.0 Lipase 25 U/L (12-53) Beta-Hydroxybutyric Acid 2.089 mmol/L (< 0.4) Other Laboratory Tests 01/23/25 09:21 01/22/25 09:13 Brief Hx & Hospital Course: This is a 44 years old male with past medical history of diabetes, hypertension came to emergency department because abdominal pain. 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 His blood glucose reading high at home. He come to emergency department for further evaluation. In the emergency department his blood glucose was 572. The patient was found to be in DKA. The patient was put on insulin drip and subsequently switched to Lantus and sliding scale insulin. The patient doing well today. Blood glucose control. He able to eat. The patient did not complain of abdominal pain or nausea or vomiting. I am going to discharge him home. 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 Activity as tolerated. Diet per home diet. Recommend low carb controlled diet Physical exam: HEENT: Normocephalic atraumatic pupils equal react to light and accommodation. Extraocular muscles intact, conjunctiva pink, oropharynx moist, no thrush, no exudate. Lymphatic: No lymphadenopathy Cardiovascular exam: S1, S2 was heard. No murmurs, rubs, gallops Lung: Clear on auscultation bilaterally, no wheeze, rale, rhonchi. GI: Abdominal soft, nondistended, nontenderness, positive bowel sounds. Extremity: No crepitus, cyanosis, edema. Pedal pulses present bilateral. Full range of motion. Skin: Normal turgor, no rash. Psych: Alert, oriented x3. Neurology: No focal deficits, cranial nerve II to XII grossly intact. This medical document was created using an electronic medical record system with [employer] direct computerized dictation system. Although this document has been carefully reviewed, there may still be some phonetic and typographical errors. These areas are purely typographical due to imperfections of the software programs, and do not reflect any compromise in the patient's medical care. Condition at Discharge: Stable Final Diagnosis/Problems List DKA (diabetic ketoacidosis) A1c 9.4 Dehydration Acute renal failure due to VMN Uncontrolled diabetes mellitus Intractable nausea and vomiting Other specified diabetes mellitus with ketoacidosis without coma Discharge Disposition: Home Discharge Instruct/Medications Diet: Consistent carbohydrate Activity: No Restrictions, As Tolerated Follow Up/Referral: pcp 1-2 weeks Discharge Statement: "Patient was advised to return to the ER or call 911 if any headaches, dizziness, shortness of breath, chest pain, abdominal pain, bleeding, fevers, or worsening of medical condition. Patient was counseled about treatment plan, medications, possible side effects, patientverbalized understanding. All questions were answered to the best of my ability. This discharge took greater then 30 minutes in planning, reviewing documentation, counseling the patient, and discussing with other team members." ASSESSMENT ASSESSMENT Assessment hyperglycemia Date of Service: January 23, 2025 Billing Provider: LORRAINE ACEVEDO MD Common Visit Codes: [id number]/[id number] DISCH DAY >30min LORRAINE ACEVEDO MD January 23, 2025 12:35
[2025-01-23 13:00] VITALS: BP 136/84; PULSE 76; RESP 18; TEMP 98.1; O2SAT 99
== END 2025-01-23 15:30 | disposition home or self-care (01) | DRG 420 ==
LOC: EDBD 12:37 → ER 12:48 → OVERFLOW 21:22 → TELE-WESTW 01-21 14:25 → WEST WING 01-21 19:08
PROVIDERS: ADMIT Internal Medicine; ATTEND Internal Medicine
DX: E11.10 Type 2 diabetes mellitus with ketoacidosis without coma (principal); N17.0 Acute kidney failure with tubular necrosis; E86.0 Dehydration; E87.1 Hypo-osmolality and hyponatremia; E11.65 Type 2 diabetes mellitus with hyperglycemia; D72.829 Elevated white blood cell count, unspecified; K29.70 Gastritis, unspecified, without bleeding; I10 Essential (primary) hypertension; E87.6 Hypokalemia; F12.29 Cannabis dependence with unspecified cannabis-induced disorder; Z79.899 Other long term (current) drug therapy; Z79.4 Long term (current) use of insulin
CPT/HCPCS: 36415; 36600; 74022; 80048; 80053; 80307; 81001; 82010; 82570; 82805; 82962; 83690; 83735; 83930; 83935; 84156; 84300; 85025; 87081; 96361; 96365; 96372; 96375; 99291; G0378; J1815; J2405; J2470

== ENCOUNTER 2025-03-17 14:50 | Inpatient (IN) | payer MEDICAID ==
[~2025-03-17] VITALS: Ht 170.2 cm; Wt 74.4 kg
[~2025-03-17 14:50] MED LIST changes: -SUCR1TAB PO
--- NOTE | 2025-03-17 15:03 | ED.PDOC ---
History of Present Illness HPI Comments 44-year-old male brought by paramedics for abdominal pain nausea vomiting since night. He was given Zofran in the field which controlled his nausea. His blood sugar was 600+. He does have a history of diabetes for which he takes insulin. Noncompliant. His blood pressure on arrival was 150/99 with a heart rate of 100. Denies any other symptoms. Chief Complaint: Abdominal Pain Time Seen by MD: 14:53 Primary Care Provider: unknown Reviewed Notes: Nurses Notes, Medications, Allergies Allergies: Coded Allergies: NO KNOWN ALLERGIES (Unverified , 09/21/20) Home Meds Active Scripts Amlodipine Besylate (NORVASC TABLET) 5 Mg Tb, 5 MG PO DAILY for 30 Days, #30 TAB 5 Refills Prov:LORRAINE ACEVEDO MD 01/23/25 Pantoprazole Sodium Sesquihydr (Pantoprazole Sodium) 40 Mg Tab, 40 MG PO DAILY for 30 Days, #30 TAB 2 Refills Prov:LORRAINE ACEVEDO MD 01/23/25 Sucralfate (CARAFATE SUSP) 1 Gm/10 Ml Ss, 1 GM PO BID@0600,2200 for 14 Days, #10 ML 5 Refills Prov:LORRAINE ACEVEDO MD 01/23/25 Metoclopramide Hcl (Reglan) 5 Mg Tab, 5 MG PO DAILY PRN for 30 Days, #30 TAB 5 Refills Prov:LORRAINE ACEVEDO MD 01/23/25 Insulin Glargine (Lantus) 100 Unit/Ml Inj, 80 UNIT SC HS for 96 Days, #10 ML 5 Refills Prov:LORRAINE ACEVEDO MD 01/23/25 Alum & Mag Hydrox-Simethicone (Gi Cocktail) 55 Ml Ss, 55 ML PO TID for 30 Days, #1 ML Prov:COREEN BULLARD 01/03/25 Alum & Mag Hydrox-Simethicone (Gi Cocktail) 55 Ml Ss, 55 ML PO BID for 10 Days, #1 ML Prov:COREEN BULLARD 01/02/25 Ergocalciferol (VITAMIN D 85359 UNIT) 50,000 [place], [address]678 UNIT PO QWEEKLY for 30 Days, #4 CAP Prov:COREEN BULLARD 11/28/24 Levofloxacin Hemihydrate (LEVAQUIN 500 MG) 500 Mg Tab, 500 MG PO DAILY for 7 Days, #7 TAB Prov:COREEN BULLARD RESIDENT 11/28/24 Acetaminophen (Acetaminophen) 325 Mg Tab, 650 MG PO Q6HP PRN for 30 Days, #240 TAB Prov:COREEN BULLARD RESIDENT 11/28/24 Information Source: Patient Mode of Arrival: EMS Severity: Moderate Timing: Days Duration: Since onset Past Medical History PAST MEDICAL HISTORY: DM, Denies Surgical History: Denies all surgeries Family History Family History: Reviewed,noncontributory to illness, Unknown Social History Smoker: Non-Smoker Alcohol: Denies ETOH Use Drugs: Marijuana Lives In: Home Constitutional: denies: chills, diaphoresis, fatigue, fever, malaise, sweats, weakness, others EENTM: denies: blurred vision, double vision, ear bleeding, ear discharge, ear drainage, ear pain, ear ringing, eye pain, eye redness, hearing loss, mouth pain, mouth swelling, nasal discharge, nose bleeding, nose congestion, nose pain, photophobia, tearing, throat pain, throat swelling, voice changes, others Respiratory: denies: cough, hemoptysis, orthopnea, SOB at rest, shortness of breath, SOB with excertion, stridor, wheezing, others Cardiovascular: denies: chest pain, dizzy spells, diaphoresis, Dyspnea on exertion, edema, irregular heart beat, left arm pain, lightheadedness, pal pitations, PND, syncope, others Gastrointestinal: reports: abdominal pain, nausea, vomiting; denies: abdomen distended, blood streaked bowels, constipated, diarrhea, dysphagia, difficulty swallowing, hematemesis, melena, poor appetite, poor fluid intake, rectal bleeding, rectal pain, others Genitourinary: denies: burning, dysuria, flank pain, frequency, hematuria, incontinence, penile discharge, penile sore, pain, testicle pain, testicle swelling, urgency, others Neurological: denies: dizziness, fainting, headache, left sided numbness, left sided weakness, numbness, paresthesia, pre-existing deficit, right sided numbness, right sided weakness, seizure, speech problems, tingling, tremors, weakness, others Musculoskeletal: denies: back pain, gout, joint pain, joint swelling, muscle pain, muscle stiffness, neck pain, others Integumetry: denies: bruises, change in color, change in hair/nails, dryness, laceration, lesions, lumps, rash, wounds, others Allergic/Immunocompromised: denies: Difficulty Healing, Frequent Infections, Hives, Itching, others Hematologic/Lymphatic: denies: anemia, blood clots, easy bleeding, easy bruising, swollen glands, others Endocrine: denies: excessive hunger, excessive sweating, excessive thirst, excessive urination, flushing, intolerance to cold, intolerance to heat, unexplained weight gain, unexplained weight loss, others Psychiatric: denies: anxiety, bipolar disorder, depression, hopeless, panic disorder, schizophrenia, sleepless, suicidal, others Physical Exam General Appearance: Moderate Distress HEENT: Normal ENT Inspection, Pharynx Normal, TMs Normal Neck: Full Range of Motion, Non-Tender, Normal, Normal Inspection Respiratory: Chest Non-Tender, Lungs Clear, No Accessory Muscle Use, No Respiratory Distress, Normal Breath Sounds Cardiovascular: No Edema, No JVD, No Murmur, No Gallop, Normal Peripheral Pulses, Tachycardia Breast Exam: Deferred Gastrointestinal: No Organomegaly, Non Tender, No Pulsatile Mass, Normal Bowel Sounds, Soft Genitalia: Deferred Pelvic: Deferred Rectal: Deferred Extremities: No calf tenderness, Normal capillary refill, Normal inspection, Normal range of motion, Non-tender, No pedal edema Musculoskeletal : Apperance: Normal 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 Was a procedure done?: No Differential Dx Considerations may include: Hyperglycemia Electrolyte imbalance X-Ray, Labs, Meds, VS Vital Signs Date Time Temp Pulse Resp B/P (MAP) Pulse Ox O2 Delivery O2 Flow Rate FiO2 03/17/25 15:50 98.7 100 20 150/99 (116) 97 98.7 Patient alert. Complaining of abdominal pain. Blood sugar elevated. Vitals stable. Answering all questions. Establish intravenous access. Was given fluids. Was given insulin. Was given Zofran. Was given morphine. Reviewed his previous visit. Explained to the patient. Continue to monitor. Time of 1ST Reevaluation: 15:01 Reevaluation 1ST: Unchanged Patient Education/Counseling: Diagnosis, Treatment, Prognosis Family Education/Counseling: No Family Present SEPSIS Sepsis Screen Physician Orders Complete Blood Count (03/17/25 15:53) Sodium Chloride 0.9% (03/17/25 16:00) Blood Culture (03/17/25 15:53) Basic Metabolic Panel (03/17/25 15:53) Lactic Acid W/ Reflex Order (03/17/25 15:53) Sodium Chloride 0.9% (03/17/25 16:00) Beta-Hydroxybutyrate (03/17/25 15:53) Insulin Drip 100 Unit/100ml (Myxredlin 1 (03/17/25 16:00) Glucose Blood (Accu-Chek Comfort Curve T (03/17/25 16:30) D/C All Diabetic Medications (03/17/25 15:53) Insulin Drip Protocol (03/17/25 15:53) Dextrose 50% Syringe (03/17/25 16:00) Insulin Lantus (Glargine) (Lantus) (03/18/25 10:00) Piperacillin-Tazob 3.375gm (Zosyn 3.375g (03/17/25 16:00) Metronidazole 500mg/100ml (Flagyl 500mg/ (03/17/25 16:00) Vital Signs Date Time Temp Pulse Resp B/P (MAP) Pulse Ox O2 Delivery O2 Flow Rate FiO2 03/17/25 15:50 98.7 100 20 150/99 (116) 97 98.7 Departure 1 Departure Time of Disposition: 15:02 Impression: Primary Impression: Uncontrolled diabetes mellitus Qualified Codes: E13.65 - Other specified diabetes mellitus with hyperglycemia Additional Impression: Intractable nausea and vomiting Disposition: ADMITTED INPATIENT Admit to: Med Surg Condition: Guarded Critical Care Note Critical Care Time?: Yes (90 min-critical care time only) Critical care comment: Blood sugar elevated Stability Stability form required: No Heart Score Heart Score: Heart Score Response (Comments) Value History N/A 0 EKG N/A 0 Age N/A 0 Risk Factors N/A 0 Troponin N/A 0 Total 0 REJI SANTIAGO MD Mar 17, 2025 15:03
[2025-03-17] MEDS ORDERED: DEXTROSE (50%) 50ML SYRG IV PRN (16:00)
[2025-03-17] MEDS ORDERED: SODIUM CHLORIDE 0.9% 1,000 ML IV ONE (16:00)
[2025-03-17] MEDS: SODIUM CHLORIDE 0.9% 1,000 ML IVB ONE (16:09)
[2025-03-17] MEDS: INSULIN DRIP 100 UNIT/100ML 100 ML IV SCH (16:13)
[2025-03-17] MEDS: INSULIN LANTUS (GLARGINE) 1 /0.01ml (100units/ml) SC ONE (16:21)
[2025-03-17 16:26] LABS: Hematocrit 43.4 % (41.0-53.0); Hemoglobin 15.1 g/dL (13.5-17.5); Mean Corpuscular Hemoglobin 28.6 pg (28.0-32.0); Mean Corpuscular Volume 82.2 fL (80.0-100.0); Nucleated Red Blood Cells % 0.0 %
[2025-03-17 16:32] LABS: Anion Gap 17 (5-15); Calcium 9.9 mg/dL (8.7-10.4); Carbon Dioxide 24 mmol/L (20-31)
[2025-03-17] MEDS: ACCU-CHEK COMFORT CURVE STRIP VI SCH (16:35)
[2025-03-17 16:37] LABS: BUN/Creatinine Ratio 6.7 (10.0-20.0)
[2025-03-17 16:43] LABS: Blood Urea Nitrogen 42 mg/dL (9-23)
[2025-03-17 16:44] LABS: Glucose 449 mg/dL (74-106); Potassium 3.2 mmol/L (3.5-5.1); Sodium 132 mmol/L (136-145)
[2025-03-17] MEDS: MORPHINE SULFATE 4 MG/ML SYR/VIAL IV ONE (16:44)
[2025-03-17] MEDS: ONDANSETRON HCL 4 MG/2 ML VIAL IV ONE ×2 (16:44→23:43)
[2025-03-17 16:45] LABS: Chloride 91 mmol/L (98-107)
[2025-03-17 16:47] VITALS: PULSE 103; RESP 16; O2SAT 96
[2025-03-17] MEDS ORDERED: NITROGLYCERIN 0.4 MG SL TAB SL PRN (17:15)
[2025-03-17] MEDS: SODIUM CHLORIDE 0.9% 1,000 ML IV SCH (17:15)
[2025-03-17] MEDS ORDERED: ERGOCALCIFEROL 50,000 UNIT(1.25MG) CAP PO SCH (17:30)
--- NOTE | 2025-03-17 17:47 | DVHHP2 ---
History of Present Illness Reason for Visit: DKA History of Present Illness This is a 44-year-old male with history of DM presents to ED via EMS for chief complaint of abdominal pain associated with nausea and vomiting since night. His blood sugar was greater than 600 at home. Upon evaluation patient stated running out of his insulin. He does states that this is his 5th episode of DKA this year. The patient is concerned about his symptoms and would like to be further evaluated and treated. The patient will be admitted under hospitalist care to the step-down unit for further evaluation. The patient denies fever, headache, chills, dizziness, shortness of breath, chest pain, diarrhea, constipation and other associated symptoms. The plan has been discussed with the patient and primary RN in which all questions concerns have been addressed. Endocrine: Diabetes Past Surgical History: None Family History: None Smoke: No ALCOHOL: none Drugs: None Lives: with Family Domestic Violence: Neg Review of Systems Gastrointestinal: Nausea, Vomiting, Abdominal Pain Allergies: Coded Allergies: NO KNOWN ALLERGIES (Unverified , 09/21/20) Medications Current Medications Medications Dose Ordered Sig/Adina Route Start Time Stop Time Status Last Admin Dose Admin Insulin Human (Reg)/Sodium Chloride 100 ml @ 0.5 mls/hr Q24H IV 03/17/25 16:00 03/17/25 16:13 6 MLS/HR Diagnostic Test (Pha) 1 strip Q90MIN 03/17/25 16:30 03/17/25 16:35 1 STRIP Dextrose 50 ml PRN PRN IV 03/17/25 16:00 Insulin Glargine 15 units DAILY SC 03/18/25 10:00 Sodium Chloride 1,000 ml @ 120 mls/hr Q8H20M IV 03/17/25 17:15 UNV Ondansetron HCl 4 mg Q4HP PRN IV 03/17/25 17:15 UNV Enoxaparin Sodium 40 mg DAILY SC 03/18/25 10:00 UNV Acetaminophen 650 mg Q6HP PRN PO 03/17/25 17:15 UNV Nitroglycerin 0.4 mg Q5MINP PRN SL 03/17/25 17:15 UNV Morphine Sulfate 2 mg Q30M PRN IV 03/17/25 17:15 UNV Ketorolac Tromethamine 15 mg Q6HPRN PRN IV 03/17/25 17:15 03/22/25 17:14 UNV Al Hydrox/Mg Hydrox/Simethicone 55 ml BID PO 03/17/25 22:00 UNV Amlodipine Besylate 5 mg DAILY PO 03/18/25 10:00 UNV Ergocalciferol 50,000 unit QWEEKLY PO 03/17/25 17:30 UNV Pantoprazole Sodium 40 mg DAILY PO 03/18/25 10:00 UNV Sucralfate 1 gm BID@0600,2200 PO 03/17/25 22:00 UNV Exam Vital Signs Vital Signs Date Time Temp Pulse Resp B/P (MAP) Pulse Ox O2 Delivery O2 Flow Rate FiO2 03/17/25 16:47 103 16 96 Nasal Cannula* 2 28 03/17/25 16:44 145/93 03/17/25 16:28 98.0 98.0 General Appearance: Alert, Oriented X3, Cooperative, No acute distress HEENT: Atraumatic, PERRLA, Mucous membr. moist/pink Respiratory: Clear to auscultation, Normal air movement Cardiovascular: Normal S1, Normal S2, No murmurs Abdominal: Normal bowel sounds, Soft, No hepatospenomegaly, No masses Extremities: No clubbing, No cyanosis, No edema, Normal pulses, No tenderness/swelling Skin: No rashes, No breakdown Neuro: Normal gait, Normal speech, Strength at 5/5 X4 ext, Normal tone, Sensation intact, Cranial nerves 3-12 NL, Reflexes 2+ Psych/Mental Status: Mental status NL Labs/Xrays Labs Test 03/17/25 16:08 03/17/25 16:01 Range/Units White Blood Count 18.2 H 4.4-10.8 10^3/uL Red Blood Count 5.28 4.5-5.90 10^6/uL Hemoglobin 15.1 13.5-17.5 g/dL Hematocrit 43.4 41.0-53.0 % Mean Corpuscular Volume 82.2 80.0-100.0 fL Mean Corpuscular Hemoglobin 28.6 28.0-32.0 pg Mean Corpuscular Hemoglobin Concent 34.8 32.0-36.0 g/dL Red Cell Distribution Width 13.7 11.8-14.3 % Platelet Count 421 140-450 10^3/uL Mean Platelet Volume 7.4 6.9-10.8 fL Neutrophils (%) (Auto) 87.4 H 37.0-80.0 % Lymphocytes (%) (Auto) 6.5 L 10.0-50.0 % Monocytes (%) (Auto) 5.8 0.0-12.0 % Eosinophils (%) (Auto) 0.0 0.0-7.0 % Basophils (%) (Auto) 0.3 0.0-2.0 % Neutrophils # (Auto) 15.9 H 1.6-8.6 10 ^3/uL Lymphocytes # (Auto) 1.2 0.4-5.4 10 ^3/uL Monocytes # (Auto) 1.0 0-1.3 10 ^3/uL Eosinophils # (Auto) 0 0-0.8 10 ^3/uL Basophils # (Auto) 0.1 0-0.2 10 ^3/uL Nucleated Red Blood Cells 0.0 % Sodium Level 132 L 136-145 mmol/L Potassium Level 3.2 L 3.5-5.1 mmol/L Chloride Level 91 L 98-107 mmol/L Carbon Dioxide Level 24 20-31 mmol/L Anion Gap 17 H 5-15 Blood Urea Nitrogen 42 H 9-23 mg/dL Creatinine 6.24 H 0.700-1.30 mg/dL Glomerular Filtration Rate Calc 10 >90 mL/min BUN/Creatinine Ratio 6.7 L 10.0-20.0 Serum Glucose 449 *H 74-106 mg/dL Lactic Acid Level 2.0 0.4-2.0 mmol/L Calcium Level 9.9 8.7-10.4 mg/dL POC Glucose 501 *H 70-106 mg/dl Assessment/Plan Assessment/Plan DKA---patient with abdominal pain associated with nausea and vomiting since night Elevated blood sugar 600 Noncompliant diabetic ran out of insulin x1 day 5th time in DKA this year Admit to step-down unit Reviewed CBC shows leukocytosis Reviewed BMP potassium 3.2 and blood sugar 501 Lactic acid 2.0 Pending beta hydroxy IV aggressive hydration IV insulin IV Toradol IV antibiotics Resume Protonix p.o. Hold antidiabetic medication for now Keep NPO for now Replace potassium Acute renal failure creatinine 6.2 Serum osmolality pending Urine sodium, protein, creatinine pending IV hydration Consult production team manager for evaluation and recommendation Hypokalemia 3.2 Replace potassium Monitor labs and replace as needed Hyponatremia sodium 132 IV hydration Continue to monitor labs Reconcile home meds DVT prophylaxis PUD prophylaxis Labs in a.m. Total critical care time spent 33 minutes in review of labs and medications along with discussion of plan of care with the patient Discussed plan of care with the patient and primary RN in which all questions concerns have been addressed Plan discussed with: Patient My Orders Orders - PETE SPANN SAMPLE FINISHER Procedure Category Date Status Time Admit ADMIT 03/17/25 Transmitted 17:08 Sodium Chloride 0.9% PHA 03/17/25 Logged 17:15 Ondansetron Hcl PHA 03/17/25 Logged (Zofran) 17:15 Enoxaparin Sodium PHA 03/18/25 Logged (Lovenox) 10:00 Complete Blood Count LAB 03/18/25 Verified 04:00 Comprehensive LAB 03/18/25 Verified Metabolic Panel 04:00 Npo (Nothing By DIET 03/17/25 Transmitted Mouth) Diet Dinner Condition: Serious [facility] 03/17/25 In Process 17:08 Acetaminophen Tablet [facility] 03/17/25 Logged (Tylenol Tablet) 17:15 Bedrest With Bathroom [facility] 03/17/25 In Process Privileg 17:08 Nitroglycerin [facility] 03/17/25 Logged Sublingual (Ntrostat 17:15 Morphine Sulfate [facility] 03/17/25 Logged Injection 17:15 Stat Ekg For Chest [facility] 03/17/25 In Process Pain 17:08 Notify Md Of Changes [facility] 03/17/25 In Process From Base 17:08 Veneer Sawyer For [facility] 03/17/25 In Process 24 Hours 17:08 Emergency Dysrhythmia [facility] 03/17/25 In Process Protocol 17:08 Rhythm Strips Once [facility] 03/17/25 In Process Every Shift 17:08 Oxygen By Nasal RT 03/17/25 Transmitted Cannula 17:08 Ketorolac Injection PHA 03/17/25 Logged (Toradol Injection) 17:15 Ketorolac Injection PHA 03/17/25 Logged (Toradol Injection) 17:15 Potassium Effervesent [facility] 03/17/25 Logged Tab (Klor-Con/Ef) 17:15 Gi Cocktail (Gi PHA 03/17/25 Logged Cocktail) 22:00 Amlodipine Tablet [facility] 03/18/25 Logged (Norvasc Tablet) 10:00 Ergocalciferol PHA 03/17/25 Logged (Vitamin D 50,000 17:30 Pantoprazole Tablet PHA 03/18/25 Logged (Protonix Tablet) 10:00 Sucralfate Susp PHA 03/17/25 Logged (Carafate Susp) 22:00 Date of Service: Mar 17, 2025 Billing Provider: PETE SPANN Common Visit Codes: [id number] INP/OBS CARE (HIGH), [id number] CARE 30- 74 MIN PETE SPANN Mar 17, 2025 17:47
[2025-03-17] MEDS: KETOROLAC TROMETH 30 MG/ML 1ML VIAL IV ONE (18:28)
[2025-03-17] MEDS: PIPERACILLIN-TAZOB 3.375GM 100 ML IV ONE (18:29)
[2025-03-17] MEDS: POTASSIUM EFFERVESENT TAB 25 MEQ PO ONE (18:29)
[2025-03-17 19:25] VITALS: O2SAT 97
[2025-03-17] MEDS: D5W/SOD CHLO 0.9% 1,000 ML IV SCH (20:36)
[2025-03-17 21:00] LABS: Chloride 99 mmol/L (98-107); Potassium 3.8 mmol/L (3.5-5.1); Sodium 138 mmol/L (136-145)
[2025-03-17 21:01] LABS: Anion Gap 13 (5-15); Calcium 10.3 mg/dL (8.7-10.4); Carbon Dioxide 26 mmol/L (20-31)
[2025-03-17 21:06] LABS: BUN/Creatinine Ratio 8.1 (10.0-20.0); Glucose 106 mg/dL (74-106)
[2025-03-17 21:08] LABS: Blood Urea Nitrogen 43 mg/dL (9-23)
[2025-03-17] MEDS: ONDANSETRON HCL 4 MG/2 ML VIAL IV PRN (22:21)
[2025-03-17] MEDS: KETOROLAC TROMETH 30 MG/ML 1ML VIAL IV PRN (22:21)
[2025-03-17] MEDS: SUCRALFATE 1 GM/10 ML ORAL SUSP PO SCH (22:37)
[2025-03-17] MEDS: GI COCKTAIL PO SCH (22:38)
[2025-03-17] MEDS: MORPHINE SULFATE INJ 2 MG/ml SYRG IV ONE (23:46)
[2025-03-18] MEDS: InsuLIN REG 1unit/0.01ml Soln (100units/ml) SC SCH ×2 (02:00→04:00)
[2025-03-18 03:17] VITALS: BP 123/67; PULSE 83; RESP 12; O2SAT 97
[2025-03-18 05:35] LABS: Hematocrit 42.8 % (41.0-53.0); Hemoglobin 14.8 g/dL (13.5-17.5); Mean Corpuscular Hemoglobin 29.2 pg (28.0-32.0); Mean Corpuscular Volume 84.2 fL (80.0-100.0); Nucleated Red Blood Cells % 0.1 %
[2025-03-18 06:00] VITALS: BP 126/77; PULSE 75; RESP 12; TEMP 98.4; O2SAT 100
[2025-03-18 06:09] LABS: Alanine Aminotransferase 29 U/L (7-40); Albumin 4.7 g/dL (3.2-4.8); Alkaline Phosphatase 94 U/L (46-116); Anion Gap 13 (5-15); BUN/Creatinine Ratio 8.4 (10.0-20.0); Bilirubin, Total 0.6 mg/dL (0.2-1.0); Blood Urea Nitrogen 37 mg/dL (9-23); Calcium 9.9 mg/dL (8.7-10.4); Carbon Dioxide 22 mmol/L (20-31); Chloride 100 mmol/L (98-107); Glucose 119 mg/dL (74-106); Potassium 3.6 mmol/L (3.5-5.1); Sodium 135 mmol/L (136-145); Total Protein 7.8 g/dL (5.7-8.2)
[2025-03-18] MEDS: PANTOPRAZOLE 40 MG TAB PO SCH (10:12)
[2025-03-18] MEDS: ENOXAPARIN SOD 30 MG/0.3 ML SYRINGE SC SCH (10:13)
[2025-03-18] MEDS: INSULIN LANTUS (GLARGINE) 1 /0.01ml (100units/ml) SC SCH (10:15)
--- NOTE | 2025-03-18 13:18 | DVHPN2 ---
Reviewed: Care Plan, H&P, Labs, Medications, Previous Orders, Radiology Changes from previous H/P or p: No Changes General: Per HPI Gastrointestinal: Nausea, Vomiting, Abdominal Pain Objective Vitals Vital Signs Date Time Temp Pulse Resp B/P (MAP) Pulse Ox O2 Delivery O2 Flow Rate FiO2 03/18/25 10:13 145/89 03/18/25 10:05 94 15 98 03/18/25 08:00 98.2 98.2 03/18/25 08:00 Room Air* 0 21 Intake/Output Intake and Output 03/18/25 07:00 Intake Total 1220 ml Balance 1220 ml Intake IV Total 1220 ml Medications Current Medications Medications Dose Ordered Sig/Adina Route Start Time Stop Time Status Last Admin Dose Admin Dextrose 50 ml PRN PRN IV 03/17/25 16:00 Insulin Glargine 15 units DAILY SC 03/18/25 10:00 03/18/25 10:15 15 UNITS Ondansetron HCl 4 mg Q4HP PRN IV 03/17/25 17:15 03/18/25 12:43 4 MG Enoxaparin Sodium 30 mg DAILY SC 03/18/25 10:00 03/18/25 10:13 30 MG Acetaminophen 650 mg Q6HP PRN PO 03/17/25 17:15 Nitroglycerin 0.4 mg Q5MINP PRN SL 03/17/25 17:15 Morphine Sulfate 2 mg Q30M PRN IV 03/17/25 17:15 Ketorolac Tromethamine 15 mg Q6HPRN PRN IV 03/17/25 17:15 03/22/25 17:14 03/18/25 08:13 15 MG Al Hydrox/Mg Hydrox/Simethicone 55 ml BID PO 03/17/25 22:00 03/18/25 10:15 55 ML Amlodipine Besylate 5 mg DAILY PO 03/18/25 10:00 03/18/25 10:13 5 MG Pantoprazole Sodium 40 mg DAILY PO 03/18/25 10:00 03/18/25 10:12 40 MG Sucralfate 1 gm BID@0600,2200 PO 03/17/25 22:00 03/18/25 05:49 1 GM Insulin Human Regular Q4HR SC 03/18/25 02:00 Insulin Human Regular IQ4HR SC 03/18/25 04:00 03/18/25 08:10 2 UNITS Laboratory Results Laboratory Tests 03/18/25 05:05 Chemistry Test 03/17/25 16:08 03/17/25 20:38 03/18/25 05:05 Calcium Level 9.9 mg/dL (8.7-10.4) 10.3 mg/dL (8.7-10.4) 9.9 mg/dL (8.7-10.4) Albumin 4.7 g/dL (3.2-4.8) Total Protein 7.8 g/dL (5.7-8.2) LFT Test 03/18/25 05:05 Alanine Aminotransferase (ALT) 29 U/L (7-40) Alkaline Phosphatase 94 U/L (46-116) Aspartate Amino Transferase (AST) 109 U/L (<34) H Total Bilirubin 0.6 mg/dL (0.2-1.0) Assessment/Plan Assessment/Plan DKA---patient with abdominal pain associated with nausea and vomiting since Acute renal failure creatinine 6 Hypokalemia Hyponatremia sodium dehydration leukocytosis (can be reactive vs infectious) -- tight glycemic control -- hydrate well -- blood cx pending Plan discussed with: Patient Date of Service: Mar 18, 2025 Billing Provider: HEIDY PEDRAZA DO Common Visit Codes: [id number] INP/OBS CARE(HIGH) HEIDY PEDRAZA DO Mar 18, 2025 13:18
[2025-03-18] MEDS: SODIUM CHLORIDE 0.9% 1,000 ML IV SCH (14:00)
[2025-03-18] MEDS: HYDROcodone-ACET 5/325MG TAB PO PRN (14:41)
--- NOTE | 2025-03-18 16:54 | DVHINCON2 ---
Date of service: Mar 18, 2025 Reason for Consultation RYNE History of Present Illness 44 years old male with past medical history of diabetes, Chronic kidney disease, presented with chief complaints of abdominal pain nausea and vomiting on arrival he is found to have DKA being treated with fluids and insulin has multiple admissions for DKA HPI obtained from chart as patient is sleeping and didnt want to wake up Past Medical History as per hpi Past Surgical History as per hpi Allergies: Coded Allergies: NO KNOWN ALLERGIES (Unverified , 09/21/20) Home Meds Active Scripts Amlodipine Besylate (NORVASC TABLET) 5 Mg Tb, 5 MG PO DAILY for 30 Days, #30 TAB 5 Refills Prov:LORRAINE ACEVEDO MD 01/23/25 Pantoprazole Sodium Sesquihydr (Pantoprazole Sodium) 40 Mg Tab, 40 MG PO DAILY for 30 Days, #30 TAB 2 Refills Prov:LORRAINE ACEVEDO MD 01/23/25 Sucralfate (CARAFATE SUSP) 1 Gm/10 Ml Ss, 1 GM PO BID@0600,2200 for 14 Days, #10 ML 5 Refills Prov:LORRAINE ACEVEDO MD 01/23/25 Metoclopramide Hcl (Reglan) 5 Mg Tab, 5 MG PO DAILY PRN for 30 Days, #30 TAB 5 Refills Prov:LORRAINE ACEVEDO MD 01/23/25 Insulin Glargine (Lantus) 100 Unit/Ml Inj, 80 UNIT SC HS for 96 Days, #10 ML 5 Refills Prov:LORRAINE ACEVEDO MD 01/23/25 Alum & Mag Hydrox-Simethicone (Gi Cocktail) 55 Ml Ss, 55 ML PO TID for 30 Days, #1 ML Prov:COREEN BULLARD 01/03/25 Alum & Mag Hydrox-Simethicone (Gi Cocktail) 55 Ml Ss, 55 ML PO BID for 10 Days, #1 ML Prov:COREEN BULLARD 01/02/25 Ergocalciferol (VITAMIN D 88467 UNIT) 50,000 [place], [address] UNIT PO QWEEKLY for 30 Days, #4 CAP Prov:COREEN BULLARD 11/28/24 Levofloxacin Hemihydrate (LEVAQUIN 500 MG) 500 Mg Tab, 500 MG PO DAILY for 7 Days, #7 TAB Prov:COREEN BULLARD 11/28/24 Acetaminophen (Acetaminophen) 325 Mg Tab, 650 MG PO Q6HP PRN for 30 Days, #240 TAB Prov:COREEN BULLARD RESIDENT 11/28/24 Current Medications Current Medications Medications (Trade) Dose Ordered Sig/Adina Route PRN Reason Start Time Stop Time Status Last Admin Insulin Glargine (Lantus) 15 units DAILY SC 03/18/25 10:00 03/18/25 10:15 Sodium Chloride 1,000 ml @ 120 mls/hr Q8H20M IV 03/17/25 17:15 03/17/25 20:32 DC 03/17/25 17:15 Ondansetron HCl (Zofran) 4 mg Q4HP PRN IV NAUSEA / VOMITING 03/17/25 17:15 03/18/25 12:43 Enoxaparin Sodium (Lovenox) 30 mg DAILY SC 03/18/25 10:00 03/18/25 10:13 Acetaminophen (Tylenol Tablet) 650 mg Q6HP PRN PO PAIN SCALE 1-3 OR TEMP>100.4 03/17/25 17:15 Nitroglycerin (Ntrostat Sublingual) 0.4 mg Q5MINP PRN SL FOR CHEST PAIN 03/17/25 17:15 Morphine Sulfate 2 mg Q30M PRN IV FOR CHEST PAIN 03/17/25 17:15 Ketorolac Tromethamine (Toradol Injection) 15 mg Q6HPRN PRN IV MODERATE PAIN (4-6 PAIN SCALE) 03/17/25 17:15 03/18/25 14:33 DC 03/18/25 08:13 Al Hydrox/Mg Hydrox/Simethicone (Gi Cocktail) 55 ml BID PO 03/17/25 22:00 03/18/25 10:15 Amlodipine Besylate (Norvasc Tablet) 5 mg DAILY PO 03/18/25 10:00 03/18/25 10:13 Ergocalciferol (Vitamin D 50,000 Unit) 50,000 unit QWEEKLY PO 03/17/25 17:30 03/17/25 18:26 DC Pantoprazole Sodium (Protonix Tablet) 40 mg DAILY PO 03/18/25 10:00 03/18/25 10:12 Sucralfate (Carafate Susp) 1 gm BID@0600,2200 PO 03/17/25 22:00 03/18/25 05:49 Dextrose/Sodium Chloride 1,000 ml @ 120 mls/hr Q8H20M IV 03/17/25 20:30 03/18/25 08:46 DC 03/18/25 05:17 Insulin Human Regular (InsuLIN R) Q4HR SC 03/18/25 02:00 Insulin Human Regular (InsuLIN R) IQ4HR SC 03/18/25 04:00 03/18/25 16:06 Acetaminophen/ Hydrocodone Bitart ([place]mann 5/325MG Tab) 1 tab Q4HPRN PRN PO MODERATE PAIN (4-6 PAIN SCALE) 03/18/25 14:37 03/18/25 14:41 Sodium Chloride 1,000 ml @ 100 mls/hr Q10H IV 03/18/25 14:00 03/18/25 14:00 Family History: Alzheimer's disease G8 FATHER Diabetes mellitus G8 BROTHER FH: lung cancer G8 MOTHER, Onset:Unknown Review of Systems unable to obtain H&P Exam Vital Signs/I&O Vital Sign Date Time Temp Pulse Resp B/P (MAP) Pulse Ox O2 Delivery O2 Flow Rate FiO2 03/18/25 14:45 102 16 145/82 (103) 98 03/18/25 08:00 98.2 98.2 03/18/25 08:00 Room Air* 0 21 Intake and Output 03/17/25 03/18/25 19:00 07:00 Intake Total 1220 ml Balance 1220 ml Intake IV Total 1220 ml Physical Exam General-not in any distress HEENT-normocephalic, no icterus, no pallor, neck supple Respiratory-fair air entry bilateral, [id number] heard, no murmurs appreciated Abdominal-soft, nontender, nondistended Musculoskeletal-no pedal edema, no calf tenderness Labs/Diagnostic Data Labs/Diagnostic Data Laboratory Tests Test 03/18/25 15:56 03/18/25 10:06 03/18/25 08:05 03/18/25 05:23 Range/Units POC Glucose 152 H 148 H 155 H 141 H 70-106 mg/dl Test 03/18/25 05:05 03/18/25 03:34 03/18/25 01:35 03/17/25 23:55 Range/Units White Blood Count 15.7 H 4.4-10.8 10^3/uL Red Blood Count 5.08 4.5-5.90 10^6/uL Hemoglobin 14.8 13.5-17.5 g/dL Hematocrit 42.8 41.0-53.0 % Mean Corpuscular Volume 84.2 80.0-100.0 fL Mean Corpuscular Hemoglobin 29.2 28.0-32.0 pg Mean Corpuscular Hemoglobin Concent 34.7 32.0-36.0 g/dL Red Cell Distribution Width 13.4 11.8-14.3 % Platelet Count 360 140-450 10^3/uL Mean Platelet Volume 7.3 6.9-10.8 fL Neutrophils (%) (Auto) 83.2 H 37.0-80.0 % Lymphocytes (%) (Auto) 9.2 L 10.0-50.0 % Monocytes (%) (Auto) 7.3 0.0-12.0 % Eosinophils (%) (Auto) 0.1 0.0-7.0 % Basophils (%) (Auto) 0.2 0.0-2.0 % Neutrophils # (Auto) 13.1 H 1.6-8.6 10 ^3/uL Lymphocytes # (Auto) 1.5 0.4-5.4 10 ^3/uL Monocytes # (Auto) 1.2 0-1.3 10 ^3/uL Eosinophils # (Auto) 0 0-0.8 10 ^3/uL Basophils # (Auto) 0 0-0.2 10 ^3/uL Nucleated Red Blood Cells 0.1 % Sodium Level 135 L 136-145 mmol/L Potassium Level 3.6 3.5-5.1 mmol/L Chloride Level 100 98-107 mmol/L Carbon Dioxide Level 22 20-31 mmol/L Anion Gap 13 5-15 Blood Urea Nitrogen 37 H 9-23 mg/dL Creatinine 4.41 H 0.700-1.30 mg/dL Glomerular Filtration Rate Calc 16 >90 mL/min BUN/Creatinine Ratio 8.4 L 10.0-20.0 Serum Glucose 119 H 74-106 mg/dL Calcium Level 9.9 8.7-10.4 mg/dL Total Bilirubin 0.6 0.2-1.0 mg/dL Aspartate Amino Transferase (AST) 109 H <34 U/L Alanine Aminotransferase (ALT) 29 7-40 U/L Alkaline Phosphatase 94 46-116 U/L Total Protein 7.8 5.7-8.2 g/dL Albumin 4.7 3.2-4.8 g/dL POC Glucose 118 H 164 H 177 H 70-106 mg/dl Test 03/17/25 22:46 03/17/25 21:06 03/17/25 20:38 03/17/25 20:17 Range/Units POC Glucose 121 H 121 H 109 H 70-106 mg/dl Sodium Level 138 # 136-145 mmol/L Potassium Level 3.8 3.5-5.1 mmol/L Chloride Level 99 98-107 mmol/L Carbon Dioxide Level 26 20-31 mmol/L Anion Gap 13 5-15 Blood Urea Nitrogen 43 H 9-23 mg/dL Creatinine 5.33 H 0.700-1.30 mg/dL Glomerular Filtration Rate Calc 13 >90 mL/min BUN/Creatinine Ratio 8.1 L 10.0-20.0 Serum Glucose 106 # 74-106 mg/dL Calcium Level 10.3 8.7-10.4 mg/dL Test 03/17/25 19:23 03/17/25 19:21 03/17/25 18:00 03/17/25 16:08 Range/Units POC Glucose 67 L 74 182 H 70-106 mg/dl White Blood Count 18.2 H 4.4-10.8 10^3/uL Red Blood Count 5.28 4.5-5.90 10^6/uL Hemoglobin 15.1 13.5-17.5 g/dL Hematocrit 43.4 41.0-53.0 % Mean Corpuscular Volume 82.2 80.0-100.0 fL Mean Corpuscular Hemoglobin 28.6 28.0-32.0 pg Mean Corpuscular Hemoglobin Concent 34.8 32.0-36.0 g/dL Red Cell Distribution Width 13.7 11.8-14.3 % Platelet Count 421 140-450 10^3/uL Mean Platelet Volume 7.4 6.9-10.8 fL Neutrophils (%) (Auto) 87.4 H 37.0-80.0 % Lymphocytes (%) (Auto) 6.5 L 10.0-50.0 % Monocytes (%) (Auto) 5.8 0.0-12.0 % Eosinophils (%) (Auto) 0.0 0.0-7.0 % Basophils (%) (Auto) 0.3 0.0-2.0 % Neutrophils # (Auto) 15.9 H 1.6-8.6 10 ^3/uL Lymphocytes # (Auto) 1.2 0.4-5.4 10 ^3/uL Monocytes # (Auto) 1.0 0-1.3 10 ^3/uL Eosinophils # (Auto) 0 0-0.8 10 ^3/uL Basophils # (Auto) 0.1 0-0.2 10 ^3/uL Nucleated Red Blood Cells 0.0 % Sodium Level 132 L 136-145 mmol/L Potassium Level 3.2 L 3.5-5.1 mmol/L Chloride Level 91 L 98-107 mmol/L Carbon Dioxide Level 24 20-31 mmol/L Anion Gap 17 H 5-15 Blood Urea Nitrogen 42 H 9-23 mg/dL Creatinine 6.24 H 0.700-1.30 mg/dL Glomerular Filtration Rate Calc 10 >90 mL/min BUN/Creatinine Ratio 6.7 L 10.0-20.0 Serum Glucose 449 *H 74-106 mg/dL Serum Osmolality 318 H 278-298 mOsm/kg Lactic Acid Level 2.0 0.4-2.0 mmol/L Calcium Level 9.9 8.7-10.4 mg/dL Beta-Hydroxybutyric Acid 0.094 < 0.4 mmol/L Test 03/17/25 16:01 Range/Units POC Glucose 501 *H 70-106 mg/dl Assessment Acute kidney injury hemodynamic mediated etiology in the setting of diabetic ketoacidosis History of multiple AKIs in the past Uncontrolled diabetes ketoacidosis Recommendations Continue normal saline IV Renal function better since admission We will follow closely Plan discussed with: Other MARKUS BURK MD Mar 18, 2025 16:54
[2025-03-18 19:30] VITALS: PULSE 95; RESP 21; O2SAT 96
[2025-03-18 23:05] VITALS: BP 123/77; PULSE 92; RESP 19; TEMP 98.6; O2SAT 98
[2025-03-18] MEDS: MAALOX PLUS or MAALOX 30 ML ONE (23:25)
[2025-03-18] MEDS: LIDOCAINE VISCOUS 2% 15ML UD ONE ×2 (23:26)
[2025-03-18] MEDS: DONNATAL 5ml ORAL Elix (BELLADONNA ALK-PHENOBARB) ONE (23:26)
[2025-03-19] VITALS (8 sets, daily range): BP systolic 116–154; BP diastolic 62–97; PULSE 77–116; RESP 16–20; TEMP 97.4–98.9; O2SAT 94–99
[2025-03-19] MEDS: HYDROcodone-ACET 5/325MG TAB PO ONE (02:54)
[2025-03-19 07:51] LABS: Anion Gap 10 (5-15); Carbon Dioxide 26 mmol/L (20-31); Potassium 3.6 mmol/L (3.5-5.1)
[2025-03-19 07:53] LABS: Calcium 9.8 mg/dL (8.7-10.4)
[2025-03-19 07:57] LABS: BUN/Creatinine Ratio 19.3 (10.0-20.0)
[2025-03-19 08:05] LABS: Blood Urea Nitrogen 31 mg/dL (9-23); Chloride 98 mmol/L (98-107); Glucose 140 mg/dL (74-106); Sodium 134 mmol/L (136-145)
[2025-03-19] MEDS: ACETAMINOPHEN 325 MG TAB PO PRN (10:02)
--- NOTE | 2025-03-19 12:13 | DVHPN2 ---
Progress Note Date Seen: Mar 19, 2025 Medical Necessity Reason Pt with a Central, PICC or Fol: No Subjective Patient reports: Feels better Objective vital signs Vital Sign Date Time Temp Pulse Resp B/P (MAP) Pulse Ox O2 Delivery O2 Flow Rate FiO2 03/19/25 10:03 139/92 03/19/25 08:44 98.1 87 18 99 98.1 03/19/25 00:27 Room Air* 0 21 Total Intake and Output 03/18/25 03/18/25 03/19/25 15:00 23:00 07:00 Intake Total 220 ml 700 ml 400 ml Output Total 300 ml Balance 220 ml 400 ml 400 ml medications Current Medications Medications Dose Ordered Sig/Adina Route Start Time Stop Time Status Last Admin Dose Admin Dextrose 50 ml PRN PRN IV 03/17/25 16:00 Insulin Glargine 15 units DAILY SC 03/18/25 10:00 03/18/25 10:15 15 UNITS Ondansetron HCl 4 mg Q4HP PRN IV 03/17/25 17:15 03/19/25 10:02 4 MG Enoxaparin Sodium 30 mg DAILY SC 03/18/25 10:00 03/19/25 10:03 30 MG Acetaminophen 650 mg Q6HP PRN PO 03/17/25 17:15 03/19/25 10:02 650 MG Nitroglycerin 0.4 mg Q5MINP PRN SL 03/17/25 17:15 Morphine Sulfate 2 mg Q30M PRN IV 03/17/25 17:15 Al Hydrox/Mg Hydrox/Simethicone 55 ml BID PO 03/17/25 22:00 03/19/25 10:00 55 ML Amlodipine Besylate 5 mg DAILY PO 03/18/25 10:00 03/19/25 10:03 5 MG Pantoprazole Sodium 40 mg DAILY PO 03/18/25 10:00 03/19/25 10:02 40 MG Sucralfate 1 gm BID@0600,2200 PO 03/17/25 22:00 03/19/25 06:14 1 GM Insulin Human Regular IQ4HR SC 03/18/25 04:00 03/19/25 04:04 3 UNITS Acetaminophen/ Hydrocodone Bitart 1 tab Q4HPRN PRN PO 03/18/25 14:37 03/19/25 10:35 1 TAB Sodium Chloride 1,000 ml @ 100 mls/hr Q10H IV 03/18/25 14:00 03/19/25 00:00 100 MLS/HR Diagnostic Test (Pha) 1 strip IQ4HR 03/19/25 12:00 Examination: GENERAL:Normal, CVS:Normal, ABDOMEN:Normal laboratory and microbiology Laboratory Tests 03/19/25 04:48 03/18/25 05:05 Test 03/19/25 04:48 Range/Units Serum Glucose 140 H 74-106 mg/dL Microbiology Date/Time Source Procedure Growth Status 03/17/25 16:11 Blood Blood Culture - Preliminary NO GROWTH AFTER 24 HOURS OF INCUBATION. Resulted Problem List/Assessment/Plan Problem List/Assessment/Plan Acute kidney injury hemodynamic mediated etiology in the setting of diabetic ketoacidosis History of multiple AKIs in the past Uncontrolled diabetes ketoacidosis Continue normal saline IV Inderjit resolving with hydration glycemic control needed replace electrolytes as they present themselves total care time 35mins Plan discussed with: Patient AMANDA MOYA MD Mar 19, 2025 12:13
[2025-03-19] MEDS: ACCU-CHEK COMFORT CURVE STRIP VI SCH (12:16)
[2025-03-19] MEDS ORDERED: MORPHINE SULFATE INJ 2 MG/ml SYRG IV PRN (12:30)
[2025-03-19] MEDS: MORPHINE SULFATE INJ 2 MG/ml SYRG IV PRN (13:21)
[2025-03-20] VITALS (8 sets, daily range): BP systolic 113–146; BP diastolic 65–96; PULSE 72–89; RESP 19; TEMP 97.9–99.4; O2SAT 95–98
--- NOTE | 2025-03-20 06:58 | DVHPN2 ---
Reviewed: Care Plan, H&P, Labs, Medications, Previous Orders, Radiology Changes from previous H/P or p: No Changes General: Per HPI Gastrointestinal: Nausea, Vomiting, Abdominal Pain Objective Vitals Vital Signs Date Time Temp Pulse Resp B/P (MAP) Pulse Ox O2 Delivery O2 Flow Rate FiO2 03/20/25 05:59 88 16 144/84 03/20/25 05:00 97.9 95 97.9 03/19/25 20:00 Room Air* 0 21 Intake/Output Intake and Output 03/20/25 07:00 Intake Total 1600 ml Balance 1600 ml Intake Oral 1600 ml # Voids 2 General Appearance: Alert, Oriented X3, Cooperative Cardiovascular: Regular rate, Normal S1, Normal S2 Abdomen: Normal bowel sounds, Soft Medications Current Medications Medications Dose Ordered Sig/Adina Route Start Time Stop Time Status Last Admin Dose Admin Dextrose 50 ml PRN PRN IV 03/17/25 16:00 Insulin Glargine 15 units DAILY SC 03/18/25 10:00 03/19/25 12:14 15 UNITS Ondansetron HCl 4 mg Q4HP PRN IV 03/17/25 17:15 03/20/25 05:41 4 MG Enoxaparin Sodium 30 mg DAILY SC 03/18/25 10:00 03/19/25 10:03 30 MG Acetaminophen 650 mg Q6HP PRN PO 03/17/25 17:15 03/19/25 10:02 650 MG Nitroglycerin 0.4 mg Q5MINP PRN SL 03/17/25 17:15 Morphine Sulfate 2 mg Q30M PRN IV 03/17/25 17:15 Al Hydrox/Mg Hydrox/Simethicone 55 ml BID PO 03/17/25 22:00 03/19/25 10:00 55 ML Amlodipine Besylate 5 mg DAILY PO 03/18/25 10:00 03/19/25 10:03 5 MG Pantoprazole Sodium 40 mg DAILY PO 03/18/25 10:00 03/19/25 10:02 40 MG Sucralfate 1 gm BID@0600,2200 PO 03/17/25 22:00 03/20/25 05:42 1 GM Insulin Human Regular IQ4HR SC 03/18/25 04:00 03/20/25 05:53 2 UNITS Acetaminophen/ Hydrocodone Bitart 1 tab Q4HPRN PRN PO 03/18/25 14:37 03/20/25 00:20 1 TAB Sodium Chloride 1,000 ml @ 100 mls/hr Q10H IV 03/18/25 14:00 03/20/25 05:56 100 MLS/HR Diagnostic Test (Pha) 1 strip IQ4HR 03/19/25 12:00 03/20/25 05:42 1 STRIP Morphine Sulfate 1 mg Q2HP PRN IV 03/19/25 13:15 03/20/25 05:29 1 MG Laboratory Results Laboratory Tests 03/18/25 05:05 03/19/25 04:48 Microbiology Microbiology Date/Time Source Procedure Growth Status 03/17/25 16:11 Blood Blood Culture - Preliminary NO GROWTH AFTER 48 HOURS OF INCUBATION. Resulted Labs and/or images reviewed: Labs reviewed by me, Image(s) reviewed by me Assessment/Plan Assessment/Plan DKA---patient with abdominal pain associated with nausea and vomiting since night Acute renal failure creatinine 6 Hypokalemia Hyponatremia sodium dehydration leukocytosis (can be reactive vs infectious) -- tight glycemic control -- hydrate well -- blood cx pending Plan discussed with: Patient My Orders Orders - HEIDY PEDRAZA DO Procedure Category Date Status Time Accucheck BD 03/19/25 Transmitted 07:57 Glucose Blood PHA 03/19/25 In Process (Accu-Chek Comfort 12:00 Morphine Sulfate PHA 03/19/25 In Process Injection 13:15 Hepatitis B Surface LAB 03/19/25 In Process Antigen 17:58 Hepatitis C Antibody LAB 03/19/25 In Process 17:58 Date of Service: Mar 19, 2025 Billing Provider: HEIDY PEDRAZA DO Common Visit Codes: [id number] INP/OBS CARE(HIGH) HEIDY PEDRAZA DO Mar 20, 2025 06:58
[2025-03-20 07:17] LABS: Potassium 3.6 mmol/L (3.5-5.1)
[2025-03-20 07:18] LABS: Anion Gap 10 (5-15); Calcium 9.6 mg/dL (8.7-10.4); Carbon Dioxide 27 mmol/L (20-31)
[2025-03-20 07:22] LABS: Hematocrit 41.1 % (41.0-53.0); Hemoglobin 14.4 g/dL (13.5-17.5); Mean Corpuscular Hemoglobin 29.1 pg (28.0-32.0); Mean Corpuscular Volume 83.3 fL (80.0-100.0); Nucleated Red Blood Cells % 0.1 %
[2025-03-20 07:24] LABS: BUN/Creatinine Ratio 17.1 (10.0-20.0); Blood Urea Nitrogen 19 mg/dL (9-23); Chloride 98 mmol/L (98-107); Glucose 139 mg/dL (74-106); Sodium 135 mmol/L (136-145)
--- NOTE | 2025-03-20 10:02 | DVHPN2 ---
Progress Note Date Seen: Mar 20, 2025 Medical Necessity Reason Pt with a Central, PICC or Fol: No Subjective Patient reports: No new complaints Objective vital signs Vital Sign Date Time Temp Pulse Resp B/P (MAP) Pulse Ox O2 Delivery O2 Flow Rate FiO2 03/20/25 09:52 146/96 03/20/25 09:00 98.7 81 19 96 98.7 03/19/25 20:00 Room Air* 0 21 Total Intake and Output 03/19/25 03/19/25 03/20/25 15:00 23:00 07:00 Intake Total 800 ml 800 ml Balance 800 ml 800 ml medications Current Medications Medications Dose Ordered Sig/Adina Route Start Time Stop Time Status Last Admin Dose Admin Dextrose 50 ml PRN PRN IV 03/17/25 16:00 Insulin Glargine 15 units DAILY SC 03/18/25 10:00 03/20/25 09:54 15 UNITS Ondansetron HCl 4 mg Q4HP PRN IV 03/17/25 17:15 03/20/25 05:41 4 MG Enoxaparin Sodium 30 mg DAILY SC 03/18/25 10:00 03/20/25 09:53 30 MG Acetaminophen 650 mg Q6HP PRN PO 03/17/25 17:15 03/19/25 10:02 650 MG Nitroglycerin 0.4 mg Q5MINP PRN SL 03/17/25 17:15 Morphine Sulfate 2 mg Q30M PRN IV 03/17/25 17:15 Al Hydrox/Mg Hydrox/Simethicone 55 ml BID PO 03/17/25 22:00 03/20/25 09:53 55 ML Amlodipine Besylate 5 mg DAILY PO 03/18/25 10:00 03/20/25 09:52 5 MG Pantoprazole Sodium 40 mg DAILY PO 03/18/25 10:00 03/20/25 09:53 40 MG Sucralfate 1 gm BID@0600,2200 PO 03/17/25 22:00 03/20/25 05:42 1 GM Insulin Human Regular IQ4HR SC 03/18/25 04:00 03/20/25 08:06 2 UNITS Acetaminophen/ Hydrocodone Bitart 1 tab Q4HPRN PRN PO 03/18/25 14:37 03/20/25 08:02 1 TAB Sodium Chloride 1,000 ml @ 100 mls/hr Q10H IV 03/18/25 14:00 03/20/25 05:56 100 MLS/HR Diagnostic Test (Pha) 1 strip IQ4HR 03/19/25 12:00 03/20/25 08:02 1 STRIP Morphine Sulfate 1 mg Q2HP PRN IV 03/19/25 13:15 03/20/25 05:29 1 MG Examination: GENERAL:Normal, CVS:Normal laboratory and microbiology Laboratory Tests 03/20/25 06:49 Test 03/20/25 06:49 Range/Units Serum Glucose 139 H 74-106 mg/dL Microbiology Date/Time Source Procedure Growth Status 03/17/25 16:11 Blood Blood Culture - Preliminary NO GROWTH AFTER 48 HOURS OF INCUBATION. Resulted Problem List/Assessment/Plan Problem List/Assessment/Plan Acute kidney injury hemodynamic mediated etiology in the setting of diabetic ketoacidosis History of multiple AKIs in the past Uncontrolled diabetes ketoacidosis Continue normal saline IV, advance diet and stop as tolerated the IVF Inderjit resolving with hydration glycemic control needed replace electrolytes as they present themselves total care time 35mins Plan discussed with: Patient Total Time (mins): 35 AMANDA MOYA MD Mar 20, 2025 10:02
[2025-03-20] MEDS: METOCLOPRAMIDE HCL 10 MG TAB PO SCH (16:23)
[2025-03-20] MEDS: MORPHINE SULFATE INJ 2 MG/ml SYRG IV PRN (18:40)
[2025-03-21] VITALS (7 sets, daily range): BP systolic 116–151; BP diastolic 75–94; PULSE 65–89; RESP 16–20; TEMP 36.9; O2SAT 93–99
[2025-03-21 10:03] LABS: Hepatitis B Surface Antigen Negative (Negative)
[2025-03-21 10:23] LABS: Hepatitis C Antibody Negative (Negative)
--- NOTE | 2025-03-21 11:42 | DVHPN2 ---
Subjective severe nausea and unable to tolerate any po yesterday and today Reviewed: Care Plan, H&P, Labs, Medications, Previous Orders, Radiology Changes from previous H/P or p: No Changes General: Per HPI Gastrointestinal: Nausea, Vomiting, Abdominal Pain Objective Vitals Vital Signs Date Time Temp Pulse Resp B/P (MAP) Pulse Ox O2 Delivery O2 Flow Rate FiO2 03/21/25 10:48 72 18 131/83 03/21/25 09:00 97.9 99 97.9 03/20/25 19:55 Room Air* 0 21 Intake/Output Intake and Output 03/21/25 07:00 Intake Total 1740 ml Balance 1740 ml Intake Oral 1740 ml # Voids 6 General Appearance: Alert, Oriented X3, Cooperative Cardiovascular: Regular rate, Normal S1, Normal S2 Abdomen: Normal bowel sounds, Soft Medications Current Medications Medications Dose Ordered Sig/Adina Route Start Time Stop Time Status Last Admin Dose Admin Dextrose 50 ml PRN PRN IV 03/17/25 16:00 Insulin Glargine 15 units DAILY SC 03/18/25 10:00 03/20/25 09:54 15 UNITS Ondansetron HCl 4 mg Q4HP PRN IV 03/17/25 17:15 03/21/25 04:30 4 MG Enoxaparin Sodium 30 mg DAILY SC 03/18/25 10:00 03/21/25 10:46 30 MG Acetaminophen 650 mg Q6HP PRN PO 03/17/25 17:15 03/19/25 10:02 650 MG Nitroglycerin 0.4 mg Q5MINP PRN SL 03/17/25 17:15 Morphine Sulfate 2 mg Q30M PRN IV 03/17/25 17:15 03/21/25 04:32 2 MG Al Hydrox/Mg Hydrox/Simethicone 55 ml BID PO 03/17/25 22:00 03/21/25 11:30 55 ML Amlodipine Besylate 5 mg DAILY PO 03/18/25 10:00 03/20/25 09:52 5 MG Pantoprazole Sodium 40 mg DAILY PO 03/18/25 10:00 03/21/25 10:46 40 MG Sucralfate 1 gm BID@0600,2200 PO 03/17/25 22:00 03/21/25 06:39 1 GM Insulin Human Regular IQ4HR SC 03/18/25 04:00 03/21/25 04:42 3 UNITS Acetaminophen/ Hydrocodone Bitart 1 tab Q4HPRN PRN PO 03/18/25 14:37 03/21/25 06:40 1 TAB Sodium Chloride 1,000 ml @ 100 mls/hr Q10H IV 03/18/25 14:00 03/21/25 01:30 100 MLS/HR Diagnostic Test (Pha) 1 strip IQ4HR 03/19/25 12:00 03/21/25 04:00 1 STRIP Morphine Sulfate 1 mg Q2HP PRN IV 03/19/25 13:15 03/21/25 10:48 1 MG Metoclopramide HCl 10 mg Q8HR PO 03/20/25 14:00 03/21/25 06:39 10 MG Laboratory Results Laboratory Tests 03/20/25 06:49 Microbiology Microbiology Date/Time Source Procedure Growth Status 03/17/25 16:11 Blood Blood Culture - Preliminary NO GROWTH AFTER 72 HOURS OF INCUBATION. Resulted Assessment/Plan Assessment/Plan DKA---patient with abdominal pain associated with nausea and vomiting since night Acute renal failure creatinine 1.6>1.1 Hypokalemia Hyponatremia sodium dehydration leukocytosis (can be reactive vs infectious) gastroparesis due to DM -- tight glycemic control -- hydrate well -- blood cx pending -- Reglan scheduled Dispo DC tomorrow if able to eat better Plan discussed with: Patient My Orders Orders - JOSÉ LUIS VAUGHAN MD Procedure Category Date Status Time Metoclopramide Tablet PHA 03/20/25 In Process (Reglan Tablet) 14:00 Date of Service: Mar 20, 2025 Billing Provider: JOSÉ LUIS VAUGHAN MD Common Visit Codes: [id number] INP/OBS CARE(HIGH) JOSÉ LUIS VAUGHAN MD Mar 21, 2025 11:42
--- NOTE | 2025-03-21 14:14 | DVHPN2 ---
Progress Note Date Seen: Mar 21, 2025 Medical Necessity Reason Pt with a Central, PICC or Fol: No Objective vital signs Vital Sign Date Time Temp Pulse Resp B/P (MAP) Pulse Ox O2 Delivery O2 Flow Rate FiO2 03/21/25 11:43 149/85 03/21/25 11:18 86 18 03/21/25 09:00 97.9 99 97.9 03/20/25 19:55 Room Air* 0 21 Total Intake and Output 03/20/25 03/20/25 03/21/25 15:00 23:00 07:00 Intake Total 800 ml 940 ml Balance 800 ml 940 ml medications Current Medications Medications Dose Ordered Sig/Adina Route Start Time Stop Time Status Last Admin Dose Admin Dextrose 50 ml PRN PRN IV 03/17/25 16:00 Insulin Glargine 15 units DAILY SC 03/18/25 10:00 03/20/25 09:54 15 UNITS Ondansetron HCl 4 mg Q4HP PRN IV 03/17/25 17:15 03/21/25 04:30 4 MG Enoxaparin Sodium 30 mg DAILY SC 03/18/25 10:00 03/21/25 10:46 30 MG Acetaminophen 650 mg Q6HP PRN PO 03/17/25 17:15 03/19/25 10:02 650 MG Nitroglycerin 0.4 mg Q5MINP PRN SL 03/17/25 17:15 Morphine Sulfate 2 mg Q30M PRN IV 03/17/25 17:15 03/21/25 04:32 2 MG Al Hydrox/Mg Hydrox/Simethicone 55 ml BID PO 03/17/25 22:00 03/21/25 11:30 55 ML Amlodipine Besylate 5 mg DAILY PO 03/18/25 10:00 03/21/25 11:43 5 MG Pantoprazole Sodium 40 mg DAILY PO 03/18/25 10:00 03/21/25 10:46 40 MG Sucralfate 1 gm BID@0600,2200 PO 03/17/25 22:00 03/21/25 06:39 1 GM Insulin Human Regular IQ4HR SC 03/18/25 04:00 03/21/25 13:23 2 UNITS Acetaminophen/ Hydrocodone Bitart 1 tab Q4HPRN PRN PO 03/18/25 14:37 03/21/25 12:48 1 TAB Sodium Chloride 1,000 ml @ 100 mls/hr Q10H IV 03/18/25 14:00 03/21/25 12:50 100 MLS/HR Diagnostic Test (Pha) 1 strip IQ4HR 03/19/25 12:00 03/21/25 12:49 1 STRIP Morphine Sulfate 1 mg Q2HP PRN IV 03/19/25 13:15 03/21/25 10:48 1 MG Metoclopramide HCl 10 mg Q8HR PO 03/20/25 14:00 03/21/25 06:39 10 MG Examination: GENERAL:Normal, CVS:Normal laboratory and microbiology Laboratory Tests 03/20/25 06:49 Test 03/20/25 06:49 Range/Units Serum Glucose 139 H 74-106 mg/dL Microbiology Date/Time Source Procedure Growth Status 03/17/25 16:11 Blood Blood Culture - Preliminary NO GROWTH AFTER 72 HOURS OF INCUBATION. Resulted Problem List/Assessment/Plan Problem List/Assessment/Plan Acute kidney injury hemodynamic mediated etiology in the setting of diabetic ketoacidosis History of multiple AKIs in the past Uncontrolled diabetes ketoacidosis Continue normal saline IV, advance diet and stop as tolerated the IVF Inderjit resolving with hydration glycemic control needed replace electrolytes as they present themselves will sign off total care time 35mins Plan discussed with: Patient Total Time (mins): 35 AMANDA MOYA MD Mar 21, 2025 14:13
[2025-03-21] MEDS ORDERED: BLOO1KIT XX (15:08)
[2025-03-21] MEDS ORDERED: AUG875T PO (15:13)
[2025-03-21] MEDS ORDERED: MUPI2OIN2 EX (15:13)
== END 2025-03-21 18:40 | disposition home or self-care (01) | DRG 48 ==
LOC: ER 14:50 → EDBD 14:50 → OVERFLOW 17:08 → CENTRAL 03-18 22:55 → TELE-CENTR 03-19 18:46
PROVIDERS: ADMIT Hospitalist; ATTEND Hospitalist
DX: E11.43 Type 2 diabetes mellitus with diabetic autonomic (poly)neuropathy (principal); N17.0 Acute kidney failure with tubular necrosis; R65.11 Systemic inflammatory response syndrome (SIRS) of non-infectious origin with acute organ dysfunction; E87.1 Hypo-osmolality and hyponatremia; E86.0 Dehydration; D72.829 Elevated white blood cell count, unspecified; E11.22 Type 2 diabetes mellitus with diabetic chronic kidney disease; E11.10 Type 2 diabetes mellitus with ketoacidosis without coma; E87.6 Hypokalemia; K31.84 Gastroparesis; N18.9 Chronic kidney disease, unspecified; Z79.4 Long term (current) use of insulin; Z80.1 Family history of malignant neoplasm of trachea, bronchus and lung; Z82.0 Family history of epilepsy and other diseases of the nervous system; Z83.3 Family history of diabetes mellitus; Z91.148 Patient's other noncompliance with medication regimen for other reason
CPT/HCPCS: 36415; 80048; 80053; 82010; 82962; 83605; 83930; 85025; 86803; 87040; 87340; 96361; 96365; 96375; 99291; 99292; G0378; J1815; J1885; J2405; J2543; J3490

== ENCOUNTER 2025-04-12 14:04 | Inpatient (IN) | payer MEDICAID ==
[~2025-04-12] VITALS: Ht 170.2 cm; Wt 90.4 kg
[~2025-04-12 14:04] MED LIST changes: +AUG875T PO; +BLOO1KIT XX; -LEVO500T91 PO; +MUPI2OIN2 EX
--- NOTE | 2025-04-12 14:27 | ED.PDOC ---
GI ASSESSMENT HPI Comments This is a 44 year old male ARIS presenting to the ED with chief complaint of abdominal pain. Patient reports that he has been experiencing right sided abdominal pain with associated nausea, vomiting, and constipation for 2 days. Patient relays that he has history of chronic gastritis. Patient states his last marijuana use was 3 weeks ago. Patient denies any diarrhea, fever, chills, dysuria, chest pain, or SOB. Chief Complaint: Nausea/Vomiting Time Seen by MD: 14:14 Primary Care Provider: UNKNOWN Reviewed Notes: Nurses Notes, Devops Consultant Notes, Medications, Allergies Allergies: Coded Allergies: NO KNOWN ALLERGIES (Unverified , 09/21/20) Home Meds Active Scripts Mupirocin (Pseudomonas Fluores (Mupirocin) 2 % Oin, 2 % EX BID for 30 Days, #1 OIN Prov:JOSÉ LUIS VAUGHAN MD 03/21/25 Amoxicillin & Pot Clavulanate (AUGMENTIN TABLET) 875 Mg Tb, 875 MG PO BID for 10 Days, #20 TAB Prov:JOSÉ LUIS VAUGHAN MD 03/21/25 Blood Glucose Monitoring Suppl (TimeetUCH VERIO REFLECT w/Device) 1 Kit Kit, KIT XX TIDWM PRN, #1 Prov:JOSÉ LUIS VAUGHAN MD 03/21/25 Amlodipine Besylate (NORVASC TABLET) 5 Mg Tb, 5 MG PO DAILY for 30 Days, #30 TAB 5 Refills Prov:LORRAINE ACEVEDO MD 01/23/25 Pantoprazole Sodium Sesquihydr (Pantoprazole Sodium) 40 Mg Tab, 40 MG PO DAILY for 30 Days, #30 TAB 2 Refills Prov:LORRAINE ACEVEDO MD 01/23/25 Sucralfate (CARAFATE SUSP) 1 Gm/10 Ml Ss, 1 GM PO BID@0600,2200 for 14 Days, #10 ML 5 Refills Prov:LORRAINE ACEVEDO MD 01/23/25 Metoclopramide Hcl (Reglan) 5 Mg Tab, 5 MG PO DAILY PRN for 30 Days, #30 TAB 5 Refills Prov:LORRAINE ACEVEDO MD 01/23/25 Insulin Glargine (Lantus) 100 Unit/Ml Inj, 80 UNIT SC HS for 96 Days, #10 ML 5 Refills Prov:LORRAINE ACEVEDO MD 01/23/25 Alum & Mag Hydrox-Simethicone (Gi Cocktail) 55 Ml Ss, 55 ML PO TID for 30 Days, #1 ML Prov:COREEN BULLARD 01/03/25 Alum & Mag Hydrox-Simethicone (Gi Cocktail) 55 Ml Ss, 55 ML PO BID for 10 Days, #1 ML Prov:COREEN BULLARD 01/02/25 Ergocalciferol (VITAMIN D 45548 UNIT) 50,000 [place], 12213 UNIT PO QWEEKLY for 30 Days, #4 CAP Prov:COREEN BULLARD 11/28/24 Acetaminophen (Acetaminophen) 325 Mg Tab, 650 MG PO Q6HP PRN for 30 Days, #240 TAB Prov:COREEN BULLARD 11/28/24 Information Source: Patient, Emergency Med Personnel Mode of Arrival: EMS Timing: Days Duration: Since onset Prehospital treatment: None Quality: Sharp Vomitus: Watery Stool: Impaction Severity: Moderate Recent: None Recent Hx of: None Pain Location: RLQ Modifying Factors: Nothing Associated sign and symptoms: Nausea, Vomiting, Constipation, Abdominal Pain Past Medical History PAST MEDICAL HISTORY: DM Past Medical History (Other): Chronic gastritis Surgical History (Other): Neck/back surgery Family History Family History: Reviewed,noncontributory to illness, Unknown Social History Smoker: Non-Smoker Alcohol: Denies ETOH Use Drugs: Marijuana Lives In: Home Constitutional: denies: chills, diaphoresis, fatigue, fever, malaise, sweats, weakness, others EENTM: denies: blurred vision, double vision, ear bleeding, ear discharge, ear drainage, ear pain, ear ringing, eye pain, eye redness, hearing loss, mouth pain, mouth swelling, nasal discharge, nose bleeding, nose congestion, nose pain, photophobia, tearing, throat pain, throat swelling, voice changes, others Respiratory: denies: cough, hemoptysis, orthopnea, SOB at rest, shortness of breath, SOB with excertion, stridor, wheezing, others Cardiovascular: denies: chest pain, dizzy spells, diaphoresis, Dyspnea on exertion, edema, irregular heart beat, left arm pain, lightheadedness, palpitations, PND, syncope, others Gastrointestinal: reports: abdominal pain, constipated, nausea, vomiting; denies: abdomen distended, blood streaked bowels, diarrhea, dysphagia, difficulty swallowing, hematemesis, melena, poor appetite, poor fluid intake, rectal bleeding, rectal pain, others Genitourinary: denies: burning, dysuria, flank pain, frequency, hematuria, incontinence, penile discharge, penile sore, pain, testicle pain, testicle swelling, urgency, others Neurological: denies: dizziness, fainting, headache, left sided numbness, left sided weakness, numbness, paresthesia, pre-existing deficit, right sided numbness, right sided weakness, seizure, speech problems, tingling, tremors, weakness, others Musculoskeletal: denies: back pain, gout, joint pain, joint swelling, muscle pain, muscle stiffness, neck pain, others Integumetry: denies: bruises, change in color, change in hair/nails, dryness, laceration, lesions, lumps, rash, wounds, others Allergic/Immunocompromised: denies: Difficulty Healing, Frequent Infections, Hives, Itching, others Hematologic/Lymphatic: denies: anemia, blood clots, easy bleeding, easy bruising, swollen glands, others Endocrine: denies: excessive hunger, excessive sweating, excessive thirst, excessive urination, flushing, intolerance to cold, intolerance to heat, unexplained weight gain, unexplained weight loss, others Psychiatric: denies: anxiety, bipolar disorder, depression, hopeless, panic disorder, schizophrenia, sleepless, suicidal, others All Other Systems: Reviewed and Negative Physical Exam General Appearance: Moderate Distress, Normal HEENT: Normal ENT Inspection, Pharynx Normal, TMs Normal Neck: Full Range of Motion, Non-Tender, Normal, Normal Inspection Respiratory: Chest Non-Tender, Lungs Clear, No Accessory Muscle Use, No Respiratory Distress, Normal Breath Sounds Cardiovascular: No Edema, No JVD, No Murmur, No Gallop, Normal Peripheral Pulses, Regular Rate/Rhythm Breast Exam: Deferred Gastrointestinal: No Organomegaly, Non Tender, No Pulsatile Mass, Normal Bowel Sounds, Soft Genitalia: Deferred Pelvic: Deferred Rectal: Deferred Extremities: No calf tenderness, Normal capillary refill, Normal inspection, Normal range of motion, Non-tender, No pedal edema Musculoskeletal : Apperance: Normal Neurologic: Alert, online merchandising manager II-XII nml as Tested, No Motor Deficits, Normal Affect, Normal Mood, No Sensory Deficits Cerebellar Function: NOT DONE Reflexes: NOT DONE Skin: Dry, Normal Color, Warm Peripheral Pulses: 3+ Radial (R), 3+ Radial (L) Lymphatic: No Adenopathy Was a procedure done? Was a procedure done?: No GI differential Dx Differential Diagnosis: Constipation, Diverticular disease, Esophagitis, Gastritis/PUD, Gastroenteritis X-Ray, Labs, Meds, VS Vital Signs Date Time Temp Pulse Resp B/P (MAP) Pulse Ox O2 Delivery O2 Flow Rate FiO2 04/12/25 14:05 98.4 110 16 116/78 (91) 97 98.4 Lab Test 04/12/25 14:25 Range/Units White Blood Count 18.2 H 4.4-10.8 10^3/uL Red Blood Count 5.55 4.5-5.90 10^6/uL Hemoglobin 16.3 13.5-17.5 g/dL Hematocrit 47.3 41.0-53.0 % Mean Corpuscular Volume 85.1 80.0-100.0 fL Mean Corpuscular Hemoglobin 29.3 28.0-32.0 pg Mean Corpuscular Hemoglobin Concent 34.5 32.0-36.0 g/dL Red Cell Distribution Width 13.4 11.8-14.3 % Platelet Count 488 H 140-450 10^3/uL Mean Platelet Volume 7.1 6.9-10.8 fL Neutrophils (%) (Auto) 84.3 H 37.0-80.0 % Lymphocytes (%) (Auto) 8.7 L 10.0-50.0 % Monocytes (%) (Auto) 6.5 0.0-12.0 % Eosinophils (%) (Auto) 0.1 0.0-7.0 % Basophils (%) (Auto) 0.4 0.0-2.0 % Neutrophils # (Auto) 15.4 H 1.6-8.6 10 ^3/uL Lymphocytes # (Auto) 1.6 0.4-5.4 10 ^3/uL Monocytes # (Auto) 1.2 0-1.3 10 ^3/uL Eosinophils # (Auto) 0 0-0.8 10 ^3/uL Basophils # (Auto) 0.1 0-0.2 10 ^3/uL Nucleated Red Blood Cells 0.1 % Sodium Level 144 136-145 mmol/L Potassium Level 3.5 3.5-5.1 mmol/L Chloride Level 106 98-107 mmol/L Carbon Dioxide Level 23 20-31 mmol/L Anion Gap 15 5-15 Blood Urea Nitrogen Pending Creatinine Pending Glomerular Filtration Rate Calc Pending BUN/Creatinine Ratio Pending Serum Glucose Pending Calcium Level Pending Beta-Hydroxybutyric Acid Pending Current Medications Medications (Trade) Dose Ordered Sig/Adina Route Start Time Stop Time Status Last Admin Sodium Chloride 1,000 ml @ 1,000 mls/hr Q1H ONCE IV 04/12/25 14:15 04/12/25 15:14 04/12/25 14:44 Sodium Chloride 1,000 ml @ 150 mls/hr Q6H40M ONCE IV 04/12/25 14:15 04/12/25 20:54 04/12/25 14:46 Patient alert. Complaining of abdominal pain nausea vomiting. Vitals stable. Answering questions. Establish intravenous access. Was given fluids. Reviewed his previous history. History of DKA. WBC elevated. Tachycardia. Explained to the patient. Continue monitoring. Time of 1ST Reevaluation: 15:14 Reevaluation 1ST: Unchanged Patient Education/Counseling: Diagnosis, Treatment Family Education/Counseling: No Family Present Additional Information Previous visits reviewed: 03/17/25 for DKA The following tests were ordered, and results were reviewed by me: Additional Information was gathered from interviewing the following independent historians: EMS I reviewed and agreed with the following test results read by other providers: I discussed treatment and results with medical personnel and: patient Comprehensive systems review obtained and negative except for what is stated in the HPI. SEPSIS Sepsis Screen Physician Orders Basic Metabolic Panel (04/12/25 14:14) Sodium Chloride 0.9% (04/12/25 14:15) Sodium Chloride 0.9% (04/12/25 14:15) Beta-Hydroxybutyrate (04/12/25 14:14) Saline Lock (04/12/25 14:34) Urinalysis (04/12/25 14:37) Ondansetron Hcl (Zofran) (04/12/25 15:00) Morphine Sulfate Injection (04/12/25 15:00) Vital Signs Date Time Temp Pulse Resp B/P (MAP) Pulse Ox O2 Delivery O2 Flow Rate FiO2 04/12/25 14:05 98.4 110 16 116/78 (91) 97 98.4 Laboratory Tests Test 04/12/25 14:25 White Blood Count 18.2 10^3/uL (4.4-10.8) H Medications Medications Dose Ordered Sig/Adina Route Start Time Stop Time Status Last Admin Dose Admin Sodium Chloride 1,000 ml @ 150 mls/hr Q6H40M ONCE IV 04/12/25 14:15 04/12/25 20:54 04/12/25 14:46 Sodium Chloride 1,000 ml @ 1,000 mls/hr Q1H ONCE IV 04/12/25 14:15 04/12/25 15:14 04/12/25 14:44 Departure 1 Departure Time of Disposition: 14:56 Impression: Primary Impression: Uncontrolled diabetes mellitus Qualified Codes: E13.65 - Other specified diabetes mellitus with hyperglycemia Additional Impressions: Intractable nausea and vomiting Sepsis, unspecified organism Qualified Codes: A41.9 - Sepsis, unspecified organism Disposition: ADMITTED INPATIENT Admit to: Med Surg Condition: Guarded Critical Care Note Critical Care Time?: Yes (90 min-critical care time only) Stability Stability form required: No Heart Score Heart Score: Heart Score Response (Comments) Value History N/A 0 EKG N/A 0 Age N/A 0 Risk Factors N/A 0 Troponin N/A 0 Total 0 I personally scribed for REJI SANTIAGO MD ([email or web address]) on 04/12/25 at 14:27. Electronically submitted by Min Collins ([email or web address]). REJI SANTIAGO MD Apr 12, 2025 14:27
[2025-04-12] MEDS: SODIUM CHLORIDE 0.9% 1,000 ML IV ONE ×5 (14:44→18:30)
[2025-04-12 14:48] LABS: Mean Corpuscular Hemoglobin 29.3 pg (28.0-32.0); Nucleated Red Blood Cells % 0.1 %
[2025-04-12 14:50] LABS: Hematocrit 47.3 % (41.0-53.0); Hemoglobin 16.3 g/dL (13.5-17.5); Mean Corpuscular Volume 85.1 fL (80.0-100.0)
[2025-04-12 14:52] LABS: Chloride 106 mmol/L (98-107); Sodium 144 mmol/L (136-145)
[2025-04-12 14:53] LABS: Anion Gap 15 (5-15); Carbon Dioxide 23 mmol/L (20-31); Potassium 3.5 mmol/L (3.5-5.1)
[2025-04-12 14:58] LABS: BUN/Creatinine Ratio 7.5 (10.0-20.0); Blood Urea Nitrogen 19 mg/dL (9-23)
[2025-04-12 14:59] LABS: Calcium 11.5 mg/dL (8.7-10.4); Glucose 188 mg/dL (74-106)
[2025-04-12] MEDS: ONDANSETRON HCL 4 MG/2 ML VIAL IV ONE ×2 (15:14→18:25)
[2025-04-12] MEDS: MORPHINE SULFATE 4 MG/ML SYR/VIAL IV ONE (15:19)
[2025-04-12 15:56] LABS: Lactic Acid w/Reflex 3.2 mmol/L (0.4-2.0)
[2025-04-12] MEDS: PIPERACILLIN-TAZOB 3.375GM 100 ML IV ONE (16:30)
[2025-04-12] MEDS: HYDROcodone-ACET 10/325MG TAB PO ONE (18:25)
[2025-04-12] MEDS ORDERED: DEXTROSE (50%) 50ML SYRG IV PRN (18:30)
--- NOTE | 2025-04-12 18:33 | DVHHP2 ---
History of Present Illness Reason for Visit: Abdominal pain History of Present Illness 44-year-old male presents for evaluation of abdominal pain. Patient endorses a two day history of diffuse abdominal pain with associated nausea, vomiting and constipation. Patient reports having an appointment with his GI provider until June this year. Denies fever or chills. No cardiac or respiratory complaints. Past Medical History Diabetes mellitus Past Surgical History Back surgery Family History Noncontributory Smoke: No ALCOHOL: none Drugs: Marijuana Lives: with Family Review of Systems Review of Systems Review of systems are currently negative otherwise addressed in HPI. Allergies: Coded Allergies: NO KNOWN ALLERGIES (Unverified , 09/21/20) Medications Current Medications Medications Dose Ordered Sig/Adina Route Start Time Stop Time Status Last Admin Dose Admin Ceftriaxone Sodium 50 ml @ 100 mls/hr DAILY@09 IV 04/13/25 09:00 UNV Metronidazole 100 ml @ 100 mls/hr Q8HR IV 04/12/25 22:00 UNV Exam Vital Signs Vital Signs Date Time Temp Pulse Resp B/P (MAP) Pulse Ox O2 Delivery O2 Flow Rate FiO2 04/12/25 16:32 97.7 107 16 134/88 (103) 95 97.7 Exam Gen: 44-year-old male in mild distress Skin: Warm, dry, normal color and texture, no rash. HEENT: Normocephalic atraumatic, mucous membranes moist and pink. Neck: Cervical and supraclavicular nodes normal without enlargement, trachea is midline, thyroid gland is normal without masses. Pulmonary: Clear to auscultation and percussion bilaterally. Cardiac: Regular rate and rhythm. No murmur Abdomen: Soft, diffuse tenderness, nondistended, bowel sounds present all 4 quadrants, no guarding, no rigidity, no organomegaly. Extremities: No cyanosis, clubbing, no edema Neuro: Cranial nerves II through XII grossly intact, normal affect and speech, no focal motor deficits. Labs/Xrays Labs Test 04/12/25 18:21 04/12/25 14:25 Range/Units White Blood Count 18.2 H 4.4-10.8 10^3/uL Red Blood Count 5.55 4.5-5.90 10^6/uL Hemoglobin 16.3 13.5-17.5 g/dL Hematocrit 47.3 41.0-53.0 % Mean Corpuscular Volume 85.1 80.0-100.0 fL Mean Corpuscular Hemoglobin 29.3 28.0-32.0 pg Mean Corpuscular Hemoglobin Concent 34.5 32.0-36.0 g/dL Red Cell Distribution Width 13.4 11.8-14.3 % Platelet Count 488 H 140-450 10^3/uL Mean Platelet Volume 7.1 6.9-10.8 fL Neutrophils (%) (Auto) 84.3 H 37.0-80.0 % Lymphocytes (%) (Auto) 8.7 L 10.0-50.0 % Monocytes (%) (Auto) 6.5 0.0-12.0 % Eosinophils (%) (Auto) 0.1 0.0-7.0 % Basophils (%) (Auto) 0.4 0.0-2.0 % Neutrophils # (Auto) 15.4 H 1.6-8.6 10 ^3/uL Lymphocytes # (Auto) 1.6 0.4-5.4 10 ^3/uL Monocytes # (Auto) 1.2 0-1.3 10 ^3/uL Eosinophils # (Auto) 0 0-0.8 10 ^3/uL Basophils # (Auto) 0.1 0-0.2 10 ^3/uL Nucleated Red Blood Cells 0.1 % Sodium Level 144 136-145 mmol/L Potassium Level 3.5 3.5-5.1 mmol/L Chloride Level 106 98-107 mmol/L Carbon Dioxide Level 23 20-31 mmol/L Anion Gap 15 5-15 Blood Urea Nitrogen 19 9-23 mg/dL Creatinine 2.53 H 0.700-1.30 mg/dL Glomerular Filtration Rate Calc 31 >90 mL/min BUN/Creatinine Ratio 7.5 L 10.0-20.0 Serum Glucose 188 H 74-106 mg/dL Calcium Level 11.5 H 8.7-10.4 mg/dL Beta-Hydroxybutyric Acid 0.235 < 0.4 mmol/L SEPSIS Sepsis Screen Date sepsis recognized/suspect: Apr 12, 2025 Time Sepsis recognized/suspect: 1404 Recent Procedure: No On Antibiotic Therapy: No Respiratory Rate >20: No Heart Rate >90: Yes Temp<36 C (96.8 F) or >38.3 C: No SBP <90 or MAP <65 mmHG: No New Acute Mental Status Change: No Is the patient on CPAP, BIPAP,: No Physician Orders Sodium Chloride 0.9% (04/12/25 14:15) Saline Lock (04/12/25 14:34) Urinalysis (04/12/25 14:37) Blood Culture (04/12/25 14:57) Sodium Chloride 0.9% (04/12/25 15:00) Ct Ab Pel Wo Con-No Oral Or Iv (04/12/25 18:23) * [facility] Financial Compliance Examiner (04/12/25 18:23) Lactic Acid W/ Reflex Order (04/12/25 18:23) Sodium Chloride 0.9% (04/12/25 18:30) Ceftriaxone 1gm/50ml D5w (Rocephin) (04/13/25 09:00) Metronidazole 500mg/100ml (Flagyl 500mg/ (04/12/25 22:00) Pantoprazole (Protonix) (04/13/25 10:00) Pantoprazole (Protonix) (04/12/25 18:30) Admit (04/12/25 18:23) Ondansetron Hcl (Zofran) (04/12/25 18:30) Complete Blood Count (04/13/25 04:00) Comprehensive Metabolic Panel (04/13/25 04:00) Npo (Nothing By Mouth) Diet (04/12/25 Dinner) Condition: Stable (04/12/25 18:23) Bedrest With Bathroom Privileg (04/12/25 18:23) Morphine Sulfate Injection (04/12/25 18:30) Glucose Blood (Accu-Chek Comfort Curve T (04/13/25 00:00) Mild Sliding Scale Npo - Q6hr (04/13/25 00:00) Dextrose 50% Syringe (04/12/25 18:30) Vital Signs Date Time Temp Pulse Resp B/P (MAP) Pulse Ox O2 Delivery O2 Flow Rate FiO2 04/12/25 16:32 97.7 107 16 134/88 (103) 95 97.7 04/12/25 16:31 107 16 134/88 04/12/25 15:19 110 20 141/101 04/12/25 14:05 98.4 110 16 116/78 (91) 97 98.4 Laboratory Tests Test 04/12/25 14:25 04/12/25 15:14 04/12/25 18:21 White Blood Count 18.2 10^3/uL (4.4-10.8) H Lactic Acid Level 3.2 mmol/L (0.4-2.0) *H Pending Medications Medications Dose Ordered Sig/Adina Route Start Time Stop Time Status Last Admin Dose Admin Acetaminophen/ Hydrocodone Bitart 1 tab ONCE ONCE PO 04/12/25 18:00 04/12/25 18:01 DC 04/12/25 18:25 1 TAB Metronidazole 100 ml @ 100 mls/hr ONCE ONCE IV 04/12/25 15:00 04/12/25 15:59 DC 04/12/25 15:14 100 MLS/HR Morphine Sulfate 4 mg ONCE ONCE IV 04/12/25 15:00 04/12/25 15:01 DC 04/12/25 15:19 4 MG Ondansetron HCl 4 mg ONCE ONCE IV 04/12/25 15:00 04/12/25 15:01 DC 04/12/25 15:14 4 MG Ondansetron HCl 4 mg ONCE ONCE IV 04/12/25 18:00 04/12/25 18:01 DC 04/12/25 18:25 4 MG Piperacillin Sod/ Tazobactam Sod 100 ml @ 100 mls/hr ONCE ONCE IV 04/12/25 16:15 04/12/25 17:14 DC 04/12/25 16:30 100 MLS/HR Sodium Chloride 1,000 ml @ 150 mls/hr Q6H40M ONCE IV 04/12/25 14:15 04/12/25 20:54 04/12/25 14:46 150 MLS/HR Sodium Chloride 1,000 ml @ 1,000 mls/hr Q1H ONCE IV 04/12/25 14:15 04/12/25 15:14 DC 04/12/25 14:44 1,000 MLS/HR Sodium Chloride 1,000 ml @ 1,000 mls/hr Q1H ONCE IV 04/12/25 15:00 04/12/25 15:59 DC 04/12/25 15:20 1,000 MLS/HR Assessment/Plan Assessment/Plan Assessment Acute abdominal pain Possible gastroparesis Leukocytosis Acute kidney injury Plan Admit the patient to Med surge to the hospitalist GI consult NPO Maintenance IV fluids Rocephin/Flagyl CT of the abdomen and pelvis pending Continue treatment per orders. Plan discussed with: Patient My Orders Orders - CASI MALDONADO Procedure Category Date Status Time Ct Ab Pel Wo Con-No CT 04/12/25 Logged Oral Or Iv 18:23 * [facility] Financial Compliance Examiner CONS 04/12/25 Transmitted 18:23 Lactic Acid W/ Reflex LAB 04/12/25 Transmitted Order 18:23 Sodium Chloride 0.9% PHA 04/12/25 Logged 18:30 Ceftriaxone 1gm/50ml PHA 04/13/25 Logged D5w (Rocephin) 09:00 Metronidazole PHA 04/12/25 Logged 500mg/100ml (Flagyl 22:00 Pantoprazole PHA 04/13/25 Transmitted (Protonix) 10:00 Pantoprazole PHA 04/12/25 Transmitted (Protonix) 18:30 Admit ADMIT 04/12/25 Transmitted 18:23 Ondansetron Hcl PHA 04/12/25 Transmitted (Zofran) 18:30 Complete Blood Count LAB 04/13/25 Verified 04:00 Comprehensive LAB 04/13/25 Verified Metabolic Panel 04:00 Npo (Nothing By DIET 04/12/25 Transmitted Mouth) Diet Dinner Condition: Stable LUKE 04/12/25 In Process 18:23 Bedrest With Bathroom LUKE 04/12/25 In Process Privileg 18:23 Morphine Sulfate PHA 04/12/25 Transmitted Injection 18:30 Glucose Blood PHA 04/13/25 Transmitted (Accu-Chek Comfort 00:00 Mild Sliding Scale PHA 04/13/25 Transmitted Npo - Q6hr 00:00 Dextrose 50% Syringe PHA 04/12/25 Transmitted 18:30 Date of Service: Apr 12, 2025 Billing Provider: CASI MALDONADO Common Visit Codes: [id number] INP/OBS CARE (MOD) CASI MALDONADO Apr 12, 2025 18:33
[2025-04-12] MEDS: SODIUM CHLORIDE 0.9% 2,000 ML IV ONE (19:16)
[2025-04-12] MEDS: PANTOPRAZOLE 40 MG/10 ML VIAL INJ IV ONE (19:16)
[2025-04-12] MEDS: ONDANSETRON HCL 4 MG/2 ML VIAL IV PRN (19:21)
[2025-04-12] MEDS: MORPHINE SULFATE INJ 2 MG/ml SYRG IV PRN (19:21)
[2025-04-12 20:34] VITALS: PULSE 105; RESP 18; O2SAT 97
[2025-04-12 21:10] LABS: Urine Protein, UAD Negative (Negative)
[2025-04-12] MEDS ORDERED: PRAM3.75 PO (21:20)
--- NOTE | 2025-04-12 21:21 | DVH ---
Exam: CT CT AB PEL WO CON-NO ORAL OR IV History: abd. pain Comparison Study: CT CT AB PEL WO CON-NO ORAL OR IV on DOS: 11/26/24, TECHNIQUE: Multidetector CT of the abdomen and pelvis was performed from lung bases to pubic symphysi s. Imaging was performed without IV contrast. Axial, coronal, and sagittal multiplanar reformats were obtained from the axial data set by the technologist. RADIATION DOSE: DLP 571.03 mGy.cm; CTDI vol 9.35 mGy. Findings: Lungs: The lung bases are clear. Heart: No cardiomegaly or pericardial effusion. Liver: Unremarkable. Gallbladder: Unremarkable. Spleen: Unremarkable Pancreas: Unremarkable Adrenals: Unremarkable Kidneys: Unremarkable GI tract: Diverticulosis without evidence of acute diverticulitis. : Unremarkable. Vasculature: Minimal aortoiliac atherosclerosis. Lymphadenopathy: Mildly prominent mesenteric lymph nodes in the right lower quadrant. Peritoneum: No ascites Musculoskeletal: Mild multilevel degenerative changes of the thoracolumbar spine. Soft tissues: Unremarkable Impression: 1. No acute abdominopelvic abnormalities. 2. Diverticulosis without evidence of acute diverticulitis. 3. Mildly prominent right lower quadrant mesenteric nodes. Correlate for mesenteric adenitis.
[2025-04-12] MEDS: KETOROLAC TROMETH 30 MG/ML 1ML VIAL IV ONE (22:32)
[2025-04-12 22:41] VITALS: BP 152/88; PULSE 102; RESP 20; TEMP 98.1; O2SAT 100
[2025-04-13] VITALS (7 sets, daily range): BP systolic 110–154; BP diastolic 73–96; PULSE 32–95; RESP 17–20; TEMP 97.9–98.9; O2SAT 96–98
[2025-04-13] MEDS: InsuLIN REG 1unit/0.01ml Soln (100units/ml) SC SCH
[2025-04-13] MEDS: ACCU-CHEK COMFORT CURVE STRIP VI SCH (00:25)
[2025-04-13 07:55] LABS: Hematocrit 37.4 % (41.0-53.0); Hemoglobin 12.8 g/dL (13.5-17.5); Mean Corpuscular Hemoglobin 29.0 pg (28.0-32.0); Mean Corpuscular Volume 84.9 fL (80.0-100.0); Nucleated Red Blood Cells % 0.0 %
[2025-04-13 08:13] LABS: Alanine Aminotransferase 12 U/L (7-40); Alkaline Phosphatase 80 U/L (46-116); Anion Gap 10 (5-15); BUN/Creatinine Ratio 16.0 (10.0-20.0); Blood Urea Nitrogen 19 mg/dL (9-23); Calcium 9.5 mg/dL (8.7-10.4); Carbon Dioxide 26 mmol/L (20-31); Potassium 3.8 mmol/L (3.5-5.1); Total Protein 6.7 g/dL (5.7-8.2)
[2025-04-13 08:14] LABS: Albumin 4.2 g/dL (3.2-4.8)
[2025-04-13 08:15] LABS: Bilirubin, Total 0.4 mg/dL (0.2-1.0)
[2025-04-13 08:20] LABS: Chloride 110 mmol/L (98-107); Glucose 179 mg/dL (74-106); Sodium 146 mmol/L (136-145)
[2025-04-13] MEDS: PANTOPRAZOLE 40 MG/10 ML VIAL INJ IV SCH (09:22)
[2025-04-13] MEDS: cefTRIAXone 1GM/50ML D5W 50 ML IV SCH (09:24)
[2025-04-13 11:19] LABS: Triglycerides 117 mg/dL (< 150)
[2025-04-13 11:21] LABS: Cholesterol 172 mg/dL (< 200)
[2025-04-13 11:24] LABS: HDL Cholesterol 39 mg/dL (40-59)
[2025-04-13] MEDS: D5W/SOD CHL 0.45% 1,000 ML IV SCH (12:38)
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
--- NOTE | 2025-04-13 14:00 | DVHINCON2 ---
GI Consult Consult Note GI consult note Date of Consultation: 04/13/2025 Chief Complaint: Recurrent abdominal pain Referring Physician: H&P: 44-year-old male presented to ER with complains of epigastric abdominal, patient complains that this pain is ongoing for the past two years, status post EGD 02/02/2024 Dr. Dasilva diagnosed with gastritis. Patient also complaining of nausea vomiting, denies hematemesis. Last bowel movement one day ago, com plaining of constipation for the two weeks, and has noticed slight red blood when straining with bowel movement. No hemorrhoids No colonoscopy in past. Patient is scheduled for an outpatient appointment in June with Dr. Dasilva Past Medical History: DM Past Surgical History: Back surgery Social History: NO smoking, drinking ETOH positive marijuana Family History: Noncontributory Review of Systems: Constitutional: no fever, chill, weight loss HEENT: no eye pain, no hearing loss, no oral lesion, no scleral icterus Heart: no chest pain, no chest pressure Lung: no cough, no dyspnea with exertion Abdomen: see HPI Physical exam: General: NAD, AAOX3 Chest: lung johnson clear to auscultation Heart: RRR, no murmur Abdomen: + lower abdomen tenderness to palpation, +BS Labs:Labs Test 04/12/25 18:21 04/12/25 14:25 Range/Units White Blood Count 18.2 H 4.4-10.8 10^3/uL Red Blood Count 5.55 4.5-5.90 10^6/uL Hemoglobin 16.3 13.5-17.5 g/dL Hematocrit 47.3 41.0-53.0 % Mean Corpuscular Volume 85.1 80.0-100.0 fL Mean Corpuscular Hemoglobin 29.3 28.0-32.0 pg Mean Corpuscular Hemoglobin Concent 34.5 32.0-36.0 g/dL Red Cell Distribution Width 13.4 11.8-14.3 % Platelet Count 488 H 140-450 10^3/uL Mean Platelet Volume 7.1 6.9-10.8 fL Neutrophils (%) (Auto) 84.3 H 37.0-80.0 % Lymphocytes (%) (Auto) 8.7 L 10.0-50.0 % Monocytes (%) (Auto) 6.5 0.0-12.0 % Eosinophils (%) (Auto) 0.1 0.0-7.0 % Basophils (%) (Auto) 0.4 0.0-2.0 % Neutrophils # (Auto) 15.4 H 1.6-8.6 10 ^3/uL Lymphocytes # (Auto) 1.6 0.4-5.4 10 ^3/uL Monocytes # (Auto) 1.2 0-1.3 10 ^3/uL Eosinophils # (Auto) 0 0-0.8 10 ^3/uL Basophils # (Auto) 0.1 0-0.2 10 ^3/uL Nucleated Red Blood Cells 0.1 % Sodium Level 144 136-145 mmol/L Potassium Level 3.5 3.5-5.1 mmol/L Chloride Level 106 98-107 mmol/L Carbon Dioxide Level 23 20-31 mmol/L Anion Gap 15 5-15 Blood Urea Nitrogen 19 9-23 mg/dL Creatinine 2.53 H 0.700-1.30 mg/dL Glomerular Filtration Rate Calc 31 >90 mL/min BUN/Creatinine Ratio 7.5 L 10.0-20.0 Serum Glucose 188 H 74-106 mg/dL Calcium Level 11.5 H 8.7-10.4 mg/dL Beta-Hydroxybutyric Acid 0.235 < 0.4 mmol/L Imaging: CT abdomen pelvis Impression: 1. No acute abdominopelvic abnormalities. 2. Diverticulosis without evidence of acute diverticulitis. 3. Mildly prominent right lower quadrant mesenteric nodes. Correlate for mesenteric adenitis. Assessment: Abdominal pain Possible mesenteric adenitis History of gastritis Plan: Discussed with Dr. Dasilva Protonix and Zofran IV antibiotics CT abdomen pelvis with p.o. and IV contrast pending We will review above for further recommendations We will continue to follow patient Thank you for this consult Date of Service: Apr 13, 2025 Billing Provider: EVA PRICE Common Visit Codes: CONSULT ONLY Consultation Codes: [id number] CONSULT <60MIN EVA PRICE Apr 13, 2025 14:00
--- NOTE | 2025-04-13 15:50 | DVH ---
Indication: To R/o mesentric ischemia stricutes, obstruction Technique: CT axial images of the abdomen and pelvis are obtained with intravenous contrast. Coronal and sagittal reformats were obtained. Radiation Dose Information: CTDI volume is 12.7 mGy. Dose-length product is 674.76 mGy*cm Comparison: CT AB PEL WITH IV CON ONLY on DOS: 08/29/22 FINDINGS: Lung bases demonstrate no pleural effusion. Adrenal glands, spleen, pancreas unremarkable. Hepatic steatosis. No CT evidence for cholelithiasis. Kidneys demonstrate no hydronephrosis. Gastric distention. Small bowel loops are normal in caliber. Colonic diverticular disease. Moderate volume stool in the colon. Abdominal aorta normal in caliber. Atherosclerotic disease. Bladder partially distended. No free pel chelsey fluid. No inguinal lymphadenopathy. Moderate lumbar degenerative disc disease L5-S1. IMPRESSION: Moderate volume stool within the colon. No evidence for high-grade bowel obstruction. The oral cont rast reaches the distal transverse/ splenic flexure of the colon. Colonic diverticular disease. Hepatic steatosis. Atherosclerotic disease. Other findings as described
[2025-04-14 01:00] VITALS: BP 122/74; PULSE 85; RESP 19; TEMP 97.8; O2SAT 98
[2025-04-14 05:00] VITALS: BP 125/75; PULSE 79; RESP 18; TEMP 97.9; O2SAT 96
[2025-04-14] MEDS: GASTROGRAFIN 30 ML SOL ONE (07:43)
[2025-04-14] MEDS: IOHEXOL 300 MG/ML 100ML BOTTLE IJ ONE (07:43)
[2025-04-14] MEDS ORDERED: ACETAMINOPHEN 325 MG TAB PO PRN (09:00)
[2025-04-14] MEDS: HYDROcodone-ACET 5/325MG TAB PO PRN (09:28)
[2025-04-14] MEDS: DOCUSATE SOD 100 MG CAP PO SCH (09:28)
--- NOTE | 2025-04-14 10:22 | DVHPNRES ---
Progress Note Date Seen: Apr 14, 2025 Resident Creating Document: LOBO MAYEN RESIDENT Has the PT tested + for MRSA If YES, has PT been informed?: No Medical Necessity Reason Pt with a Central, PICC or Fol: No Subjective Review of Systems Eliu Oliva is a 44-year-old male has past medical history of insulin- dependent diabetes mellitus, dyslipidemia. he presented to the ER with chief complaint of intractable abdominal pain, causing nausea and vomiting. he complains of abdominal pain starting 2 years ago, has been on and off. He complains of worsening pain since last 1 week. Since last 2 days, he started complaining of abdominal pain which caused him to vomit. The pain is 10 on 10, sharp, cramp like. Associated with nausea, vomiting with chills. Vomitus is yellow, bile like liquid in consistency. he also complains of associated constipation. He saw blood on stools after straining. Denied fever, headache, chest pain, shortness of breath, diarrhea. He had not traveled recently. Reported undergoing EGD 4 months ago, which showed no upper GI abnormality. Upon admission, he had tachycardia, labs showed elevated neutrophils, WBCs, platelet, lactic acid. Urine analysis showed ketones, glucose. After admission, he was started on IV fluids, IV ceftriaxone, metronidazole, Zofran. 04/13/25: He was examined at bedside today. He was in acute distress, abdominal palpation resulted in an episode of vomiting. The vomitus was watery, green in color. Today his labs show hemoglobin down to 12.8. His HbA1c is 9.3 and lactic acidosis has resolved now. 04/14/25: Today, the patient was examined at bedside, vital signs within normal limits, and labs were reviewed, the leukocytocsis has improved from 18.2x10e3 to 10.7x10e3. Patient reports pain 7/10 in the epigastric area, no nausea or vomit, he has not had a bowel movement since 2 days ago, but he is passing gasses. Docusate was iniciated. GI is onboard to evaluate possible colonoscopy. We will follow up the progress of this patient. ROS: Constitutional: Patient is in acute distress. Denies weight loss, fever. HEENT: Denies changes in vision and hearing. Respiratory: Denies shortness of breath and cough Cardiovascular: Denies chest discomfort or palpitations GI: Intractable abdominal pain. No nausea or vomit reported today : Denies dysuria and urinary frequency. Musculoskeletal: Denies myalgias and joint pain Skin: Denies rash and pruritus. Neurological: Denies dizziness, headache, vision or hearing problems Objective vital signs Vital Sign Date Time Temp Pulse Resp B/P (MAP) Pulse Ox O2 Delivery O2 Flow Rate FiO2 04/14/25 06:03 80 18 136/73 04/14/25 05:00 97.9 96 97.9 04/13/25 20:00 Room Air* 0 21 Total Intake and Output 04/13/25 04/13/25 04/14/25 15:00 23:00 07:00 Intake Total 550 ml 1700 ml Output Total 800 ml Balance -250 ml 1700 ml medications Current Medications Medications Dose Ordered Sig/Adina Route Start Time Stop Time Status Last Admin Dose Admin Ceftriaxone Sodium 50 ml @ 100 mls/hr DAILY@09 IV 04/13/25 09:00 04/14/25 09:28 100 MLS/HR Metronidazole 100 ml @ 100 mls/hr Q8HR IV 04/12/25 22:00 04/14/25 05:33 100 MLS/HR Pantoprazole Sodium 40 mg DAILY IV 04/13/25 10:00 04/14/25 09:28 40 MG Ondansetron HCl 4 mg Q4HP PRN IV 04/12/25 18:30 04/14/25 09:57 4 MG Morphine Sulfate 2 mg Q4HPRN PRN IV 04/12/25 18:30 04/14/25 05:33 2 MG Diagnostic Test (Pha) 1 strip Q6HR 04/13/25 00:00 04/14/25 05:33 1 STRIP Insulin Human Regular Q6HR SC 04/13/25 00:00 04/14/25 00:57 3 UNITS Dextrose 50 ml UD PRN IV 04/12/25 18:30 Dextrose/Sodium Chloride 1,000 ml @ 75 mls/hr [id number] IV 04/13/25 11:00 04/13/25 12:38 75 MLS/HR Acetaminophen/ Hydrocodone Bitart 1 tab Q4HPRN PRN PO 04/14/25 09:00 04/14/25 09:28 1 TAB Acetaminophen 650 mg Q6HP PRN PO 04/14/25 09:00 Docusate Sodium 100 mg BID PO 04/14/25 10:00 04/14/25 09:28 100 MG Sucralfate 1 gm TID@0600,1130,2200 GT 04/14/25 11:30 Examination General: Patient alert and oriented in person, place and time. Patient following commands. HEENT: Normocephalic, atraumatic, moist mucous membranes Respiratory/pulmonary: Clear lungs bilaterally, vesicular murmurs present in almost all lung johnson, no associated crackles or wheezes. Cardiovascular: Normal heart sounds S1 and S2 with no associated murmurs Abdomen: Bowel sounds present, tenderness in the epigastric region with mild palpation. No guarding, rigidity, no palpable masses. Extremities: There is no peripheral edema present at the lower extremities. Peripheral Pulses: 3+ Radial (R). 3+ Radial (L). 3+ Dorsalis pedis (R). 3+ Dorsalis pedis(L) Skin: No rashes or pruritus, there is no sacral edema present at this time. Neurological: Intact cranial nerves with no focal neurologic deficits laboratory and microbiology Laboratory Tests 04/13/25 07:06 Test 04/13/25 07:06 Range/Units Serum Glucose 179 H 74-106 mg/dL Microbiology Date/Time Source Procedure Growth Status 04/12/25 21:00 Nose MRSA Screen - Final Complete 04/12/25 15:00 Blood Blood Culture - Preliminary NO GROWTH AFTER 24 HOURS OF INCUBATION. Resulted Problem List/Assessment/Plan Problem List/Assessment/Plan #Sepsis due to acute gastroenteritis, infection possible #Lymphocytosis #Neutrophilia #Thrombocytosis #Lactic acidosis, resolved #Gastritis, possible #Intractable abdominal pain, nausea, vomiting due to above -EGD done 4 months ago showed mild gastritis. -Tachycardia -Blood culture ordered -Continue on IV fluids -Continue IV ceftriaxone and metronidazole #Rule out mesenteric ischemia #Mesenteric adenitis, possible -CT abdomen revealed mildly prominent right lower quadrant mesenteric nodes. Correlate for mesenteric adenitis. -CT w/ IV and oral contrast ordered #Normocytic normochromic anemia, rule out bleeding -Hemoglobin down from 16 0.3-12.8 today -Stool occult blood ordered -GI consulted #Insulin-dependent diabetes mellitus #Gastroparesis, possible -Started on sliding scale insulin -Hb A1c 9.3 #Diverticulosis, diverticulitis ruled out -CT shows diverticulosis without diverticulitis -GI Consult #Hyperlipidemia -Increased LDL, low HDL #Hypernatremia -Labs show sodium 146 -Continue monitoring electrolytes #Pancreatitis, ruled out -Ordered lipase: Lipase 24 Goals of care discussed with patient at bedside for more than 35 minutes Code status: Full code PCP Dr. Darrion Reilly Plan discussed with Plan discussed with: Patient, patient agrees with the plan. Plan discussed with: Patient Date of Service: Apr 14, 2025 Billing Provider: RAFAEL VARGHESE MD Common Visit Codes: [id number] INP/OBS CARE(HIGH) LOBO MAYEN RESIDENT Apr 14, 2025 10:22 RAFAEL VARGHESE MD Apr 18, 2025 01:44
[2025-04-14 12:26] VITALS: BP 127/77; PULSE 83; RESP 17; TEMP 98.6; O2SAT 95
[2025-04-14] MEDS: SUCRALFATE 1 GM/10 ML ORAL SUSP GT SCH (12:46)
[2025-04-14] MEDS: DICYCLOMINE HCL 10 MG CAP PO SCH (14:22)
[2025-04-14 15:30] LABS: Chloride 103 mmol/L (98-107); Hematocrit 37.8 % (41.0-53.0); Hemoglobin 12.8 g/dL (13.5-17.5); Mean Corpuscular Hemoglobin 28.8 pg (28.0-32.0); Mean Corpuscular Volume 85.2 fL (80.0-100.0); Nucleated Red Blood Cells % 0.1 %; Sodium 141 mmol/L (136-145)
[2025-04-14 15:31] LABS: Anion Gap 12 (5-15); Calcium 9.6 mg/dL (8.7-10.4); Carbon Dioxide 26 mmol/L (20-31)
[2025-04-14 15:36] LABS: BUN/Creatinine Ratio 13.3 (10.0-20.0); Blood Urea Nitrogen 13 mg/dL (9-23)
[2025-04-14 15:39] LABS: Glucose 173 mg/dL (74-106); Potassium 3.3 mmol/L (3.5-5.1)
[2025-04-14 15:41] LABS: Lactic Acid w/Reflex 2.2 mmol/L (0.4-2.0)
[2025-04-14 17:00] VITALS: BP 141/80; PULSE 90; RESP 17; TEMP 98; O2SAT 99
[2025-04-14 21:00] VITALS: BP 109/65; PULSE 81; RESP 20; TEMP 98.5; O2SAT 96
[2025-04-15 01:00] VITALS: BP 120/70; PULSE 82; RESP 12; TEMP 98.2; O2SAT 97
[2025-04-15 05:00] VITALS: BP 158/91; PULSE 81; RESP 18; TEMP 97.3; O2SAT 94
[2025-04-15 09:30] VITALS: BP 157/95; PULSE 90; RESP 19; TEMP 98.6; O2SAT 98
[2025-04-15 12:30] VITALS: BP 152/88; PULSE 88; RESP 20; TEMP 98.6; O2SAT 95
[2025-04-15] MEDS: POTASSIUM CHL 20 Meq TABLET PO ONE (13:08)
[2025-04-15] MEDS ORDERED: DICYCLOMINE HCL 10 MG CAP PO PRN (15:45)
[2025-04-15 16:30] VITALS: BP 140/90; PULSE 80; RESP 18; TEMP 97.9; O2SAT 97
--- NOTE | 2025-04-15 17:35 | DVHPNRES ---
Progress Note Date Seen: Apr 15, 2025 Resident Creating Document: ANILA MONTELONGO RESIDENT Has the PT tested + for MRSA If YES, has PT been informed?: No Medical Necessity Reason Pt with a Central, PICC or Fol: No Subjective Review of Systems Eliu Nj is a 44-year-old male has past medical history of insulin- dependent diabetes mellitus, dyslipidemia. he presented to the ER with chief complaint of intractable abdominal pain, causing nausea and vomiting. he complains of abdominal pain starting 2 years ago, has been on and off. He complains of worsening pain since last 1 week. Since last 2 days, he started complaining of abdominal pain which caused him to vomit. The pain is 10 on 10, sharp, cramp like. Associated with nausea, vomiting with chills. Vomitus is yellow, bile like liquid in consistency. he also complains of associated constipation. He saw blood on stools after straining. Denied fever, headache, chest pain, shortness of breath, diarrhea. He had not traveled recently. Reported undergoing EGD 4 months ago, which showed no upper GI abnormality. Upon admission, he had tachycardia, labs showed elevated neutrophils, WBCs, platelet, lactic acid. Urine analysis showed ketones, glucose. After admission, he was started on IV fluids, IV ceftriaxone, metronidazole, Zofran. 04/13/25: He was in acute distress, abdominal palpation resulted in an episode of vomiting. The vomitus was watery, green in color. Today his labs show hemoglobin down to 12.8. His HbA1c is 9.3 and lactic acidosis has resolved now. 04/14/25:Vital signs within normal limits, and labs were reviewed, the leukocytocsis has improved from 18.2x10e3 to 10.7x10e3. Patient reports pain 7/10 in the epigastric area, no nausea or vomit, he has not had a bowel movement since 2 days ago, but he is passing gasses. Docusate was iniciated. GI is onboard to evaluate possible colonoscopy. We will follow up the progress of this patient. 04/15/25: He was examined at bedside today. Continues to complain of intractable abdominal pain, associated with nausea and vomiting. The vomitus is watery, green in color. His labs show hemoglobin stabilized. Neutrophils and WBCs have normalized. Lactic acidosis has resolved now. GI is consulted. ROS: Constitutional: Patient is in acute distress. Denies weight loss, fever. HEENT: Denies changes in vision and hearing. Respiratory: Denies shortness of breath and cough Cardiovascular: Denies chest discomfort or palpitations GI: Intractable abdominal pain. No nausea or vomit reported today : Denies dysuria and urinary frequency. Musculoskeletal: Denies myalgias and joint pain Skin: Denies rash and pruritus. Neurological: Denies dizziness, headache, vision or hearing problems Objective vital signs Vital Sign Date Time Temp Pulse Resp B/P (MAP) Pulse Ox O2 Delivery O2 Flow Rate FiO2 04/15/25 16:30 97.9 80 18 140/90 (107) 97 97.9 04/15/25 08:00 Room Air* 0 21 Total Intake and Output 04/14/25 04/14/25 04/15/25 15:00 23:00 07:00 Intake Total 575 ml 950 ml 3100 ml Balance 575 ml 950 ml 3100 ml medications Current Medications Medications Dose Ordered Sig/Adina Route Start Time Stop Time Status Last Admin Dose Admin Ceftriaxone Sodium 50 ml @ 100 mls/hr DAILY@09 IV 04/13/25 09:00 04/15/25 09:36 100 MLS/HR Metronidazole 100 ml @ 100 mls/hr Q8HR IV 04/12/25 22:00 04/15/25 13:30 100 MLS/HR Pantoprazole Sodium 40 mg DAILY IV 04/13/25 10:00 04/15/25 09:25 40 MG Ondansetron HCl 4 mg Q4HP PRN IV 04/12/25 18:30 04/15/25 13:29 4 MG Morphine Sulfate 2 mg Q4HPRN PRN IV 04/12/25 18:30 04/15/25 13:29 2 MG Diagnostic Test (Pha) 1 strip Q6HR 04/13/25 00:00 04/15/25 12:00 1 STRIP Insulin Human Regular Q6HR SC 04/13/25 00:00 04/15/25 13:17 4 UNITS Dextrose 50 ml UD PRN IV 04/12/25 18:30 Dextrose/Sodium Chloride 1,000 ml @ 75 mls/hr [id number] IV 04/13/25 11:00 04/15/25 06:13 75 MLS/HR Acetaminophen/ Hydrocodone Bitart 1 tab Q4HPRN PRN PO 04/14/25 09:00 04/15/25 13:08 1 TAB Acetaminophen 650 mg Q6HP PRN PO 04/14/25 09:00 Docusate Sodium 100 mg BID PO 04/14/25 10:00 04/15/25 09:36 100 MG Dicyclomine HCl 20 mg BID PRN PO 04/15/25 15:45 Sucralfate 1 gm BID GT 04/15/25 22:00 Examination General: Patient alert and oriented in person, place and time. Patient following commands. HEENT: Normocephalic, atraumatic, moist mucous membranes Respiratory/pulmonary: Clear lungs bilaterally, vesicular murmurs present in almost all lung johnson, no associated crackles or wheezes. Cardiovascular: Normal heart sounds S1 and S2 with no associated murmurs Abdomen: Bowel sounds present, tenderness in the epigastric region with mild palpation. No guarding, rigidity, no palpable masses. Extremities: There is no peripheral edema present at the lower extremities. Peripheral Pulses: 3+ Radial (R). 3+ Radial (L). 3+ Dorsalis pedis (R). 3+ Dorsalis pedis(L) Skin: No rashes or pruritus, there is no sacral edema present at this time. Neurological: Intact cranial nerves with no focal neurologic deficits laboratory and microbiology Laboratory Tests 04/14/25 15:06 Test 04/14/25 15:06 Range/Units Serum Glucose 173 H 74-106 mg/dL Microbiology Date/Time Source Procedure Growth Status 04/12/25 21:00 Nose MRSA Screen - Final Complete 04/12/25 15:00 Blood Blood Culture - Preliminary NO GROWTH AFTER 72 HOURS OF INCUBATION. Resulted Problem List/Assessment/Plan Problem List/Assessment/Plan #Sepsis due to acute gastroenteritis, infection possible #Lymphocytosis #Neutrophilia #Thrombocytosis #Lactic acidosis, resolved #Gastritis, possible #Intractable abdominal pain, nausea, vomiting due to above -EGD done 4 months ago showed mild gastritis. -Tachycardia -Blood culture negative -Continue on IV fluids -Continue IV ceftriaxone and metronidazole -Continue Bentyl p.r.n. for abdominal cramps -Switch to Carafate b.i.d. #Rule out mesenteric ischemia #Mesenteric adenitis, possible -CT abdomen revealed mildly prominent right lower quadrant mesenteric nodes. Correlate for mesenteric adenitis. -CT w/ IV and oral contrast revealed colonic diverticular disease, hepatic steatosis, atherosclerotic disease. #Normocytic normochromic anemia, rule out bleeding -Hemoglobin down from 16 0.3-12.8 today -Stool occult blood ordered -GI consulted #Insulin-dependent diabetes mellitus #Gastroparesis, possible -Continue on sliding scale insulin -Hb A1c 9.3 #Diverticulosis, diverticulitis ruled out -CT shows diverticulosis without diverticulitis -GI Consult #Hyperlipidemia -Increased LDL, low HDL #Hypernatremia -Labs show sodium 146 -Continue monitoring electrolytes #Pancreatitis, ruled out -Ordered lipase: Lipase 24 Goals of care discussed with patient at bedside for more than 25 minutes Code status: Full code PCP Dr. Darrion Reilly Plan discussed with Plan discussed with: Patient My Orders My Orders Orders - ANILA MONTELONGO Procedure Category Date Status Time Dicyclomine Capsule PHA 04/15/25 In Process (Bentyl Capsule) 15:45 Sucralfate Susp PHA 04/15/25 In Process (Carafate Susp) 22:00 Dietary Evaluation Review Recommendations by RD: Dietary education by RD Comments: 1) Encourage optimal PO intake 2) Advance to 60g CCHO cardiac diet when medically feasible 3) Advise patient to limit intake of added sugars including sugar-sweetened beverages, candy, desserts, etc. 4) Refer to outpatient RD/[facility] for diabetes education 5) Follow-up with gastroenterology and nephrology 6) Continue to monitor I&O, labs, and skin integrity Expected Outcomes/Goals: 1) appetite and labs to improve 2) GI symptoms to resolve 3) diet to advance 4) f/u in 3-5 days Date of Service: Apr 15, 2025 Billing Provider: RAFAEL VARGHESE MD Common Visit Codes: [id number] INP/OBS CARE(HIGH) ANILA MONTELONGO Apr 15, 2025 17:35 RAFAEL VARGHESE MD Apr 18, 2025 01:48
[2025-04-15 21:00] VITALS: BP 153/98; PULSE 87; RESP 16; TEMP 98.2; O2SAT 93
--- NOTE | 2025-04-15 21:16 | DVHINCON2 ---
Date of service: Apr 15, 2025 History of Present Illness 44 y/o M pt with PMH of constipation admitted with abd pain, N/V. He reports having intermittent chronic abd pain since past couple years, worsening lately, severe since past few days causing nauseaa and vomiting. Denies diarrhea. HE had EGD in 01/2024, showed gastritis per pt. No colonoscopy prior Past Medical History Reviewed Past Surgical History Reviewed Family History: Alzheimer's disease G8 FATHER Diabetes mellitus G8 MOTHER G8 FATHER G8 BROTHER FH: lung cancer G8 MOTHER, Onset:Unknown Allergies: Coded Allergies: NO KNOWN ALLERGIES (Unverified , 09/21/20) Home Meds Active Scripts Mupirocin (Pseudomonas Fluores (Mupirocin) 2 % Oin, 2 % EX BID for 30 Days, #1 OIN Prov:JOSÉ LUIS VAUGHAN MD 03/21/25 Blood Glucose Monitoring Suppl (Spaces 2 HostUCH VERIO REFLECT w/Device) 1 Kit Kit, KIT XX TIDWM PRN, #1 Prov:JOSÉ LUIS VAUGHAN MD 03/21/25 Amlodipine Besylate (NORVASC TABLET) 5 Mg Tb, 5 MG PO DAILY for 30 Days, #30 TAB 5 Refills Prov:LORRAINE ACEVEDO MD 01/23/25 Sucralfate (CARAFATE SUSP) 1 Gm/10 Ml Ss, 1 GM PO BID@0600,2200 for 14 Days, #10 ML 5 Refills Prov:LORRAINE ACEVEDO MD 01/23/25 Metoclopramide Hcl (Reglan) 5 Mg Tab, 5 MG PO DAILY PRN for 30 Days, #30 TAB 5 Refills Prov:LORRAINE ACEVEDO MD 01/23/25 Insulin Glargine (Lantus) 100 Unit/Ml Inj, 80 UNIT SC HS for 96 Days, #10 ML 5 Refills Prov:LORRAINE ACEVEDO MD 01/23/25 Alum & Mag Hydrox-Simethicone (Gi Cocktail) 55 Ml Ss, 55 ML PO TID for 30 Days, #1 ML Prov:COREEN BULLARD 01/03/25 Alum & Mag Hydrox-Simethicone (Gi Cocktail) 55 Ml Ss, 55 ML PO BID for 10 Days, #1 ML Prov:COREEN BULLARD RESIDENT 01/02/25 Ergocalciferol (VITAMIN D 28155 UNIT) 50,000 [place], [address] UNIT PO QWEEKLY for 30 Days, #4 CAP Prov:COREEN BULLARD RESIDENT 11/28/24 Acetaminophen (Acetaminophen) 325 Mg Tab, 650 MG PO Q6HP PRN for 30 Days, #240 TAB Prov:COREEN BULLARD RESIDENT 11/28/24 Reported Medications Pramipexole Dihydrochloride (MIRAPEX ER) 3.75 Mg Tab, 3.75 MG PO, TAB 04/12/25 Current Medications Current Medications Medications (Trade) Dose Ordered Sig/Adina Route PRN Reason Start Time Stop Time Status Last Admin Dicyclomine HCl (Bentyl Capsule) 20 mg BID PRN PO Abdominal cramps 04/15/25 15:45 Sucralfate (Carafate Susp) 1 gm BID GT 04/15/25 22:00 Review of Systems 14 point ROS negative except mentioned above Vital Signs Vital Signs Date Time Temp Pulse Resp B/P (MAP) Pulse Ox O2 Delivery O2 Flow Rate FiO2 04/15/25 18:57 80 18 140/80 04/15/25 16:30 97.9 97 97.9 04/15/25 08:00 Room Air* 0 21 Physical Exam GE - in no acute distress CVS - S1S2+ Lungs - clear Abdomen - soft, non-distended, tender, BS+ Labs/Diagnostic Data Labs Test 04/15/25 18:37 04/15/25 16:22 04/14/25 15:06 04/13/25 12:48 Range/Units POC Glucose 195 H 70-106 mg/dl Lactic Acid Level 1.2 0.4-2.0 mmol/L White Blood Count 8.8 4.4-10.8 10^3/uL Red Blood Count 4.43 L 4.5-5.90 10^6/uL Hemoglobin 12.8 L 13.5-17.5 g/dL Hematocrit 37.8 L 41.0-53.0 % Mean Corpuscular Volume 85.2 80.0-100.0 fL Mean Corpuscular Hemoglobin 28.8 28.0-32.0 pg Mean Corpuscular Hemoglobin Concent 33.8 32.0-36.0 g/dL Red Cell Distribution Width 13.2 11.8-14.3 % Platelet Count 378 140-450 10^3/uL Mean Platelet Volume 6.7 L 6.9-10.8 fL Neutrophils (%) (Auto) 78.2 37.0-80.0 % Lymphocytes (%) (Auto) 15.8 10.0-50.0 % Monocytes (%) (Auto) 5.6 0.0-12.0 % Eosinophils (%) (Auto) 0.0 0.0-7.0 % Basophils (%) (Auto) 0.4 0.0-2.0 % Neutrophils # (Auto) 6.9 1.6-8.6 10 ^3/uL Lymphocytes # (Auto) 1.4 0.4-5.4 10 ^3/uL Monocytes # (Auto) 0.5 0-1.3 10 ^3/uL Eosinophils # (Auto) 0 0-0.8 10 ^3/uL Basophils # (Auto) 0 0-0.2 10 ^3/uL Nucleated Red Blood Cells 0.1 % Sodium Level 141 # 136-145 mmol/L Potassium Level 3.3 L 3.5-5.1 mmol/L Chloride Level 103 98-107 mmol/L Carbon Dioxide Level 26 20-31 mmol/L Anion Gap 12 5-15 Blood Urea Nitrogen 13 9-23 mg/dL Creatinine 0.98 0.700-1.30 mg/dL Glomerular Filtration Rate Calc 96 >90 mL/min BUN/Creatinine Ratio 13.3 10.0-20.0 Serum Glucose 173 H 74-106 mg/dL Calcium Level 9.6 8.7-10.4 mg/dL Test 04/13/25 07:06 04/12/25 14:30 04/12/25 14:25 Range/Units Erythrocyte Sedimentation Rate 13 0-20 mm/hr Hemoglobin A1c 9.3 H <5.7 % A1C Total Bilirubin 0.4 0.2-1.0 mg/dL Aspartate Amino Transferase (AST) 16 13-40 U/L Alanine Aminotransferase (ALT) 12 7-40 U/L Alkaline Phosphatase 80 46-116 U/L C-Reactive Protein High Sensitivity 1.22 H <1.0 mg/dL Total Protein 6.7 5.7-8.2 g/dL Albumin 4.2 3.2-4.8 g/dL Triglycerides Level 117 < 150 mg/dL Cholesterol Level 172 < 200 mg/dL LDL Cholesterol 123 H < 100 mg/dL HDL Cholesterol 39 L 40-59 mg/dL Lipase 24 12-53 U/L Urine Color Light-yellow Yellow Urine Clarity Clear Clear Urine pH 6.0 5.0-9.0 Urine Specific [place] 1.015 1.001-1.035 Urine Protein Negative Negative Urine Ketones 1+ H Negative Urine Blood Negative Negative /uL Urine Nitrite Negative Negative Urine Bilirubin Negative Negative Urine Urobilinogen Normal Negative mg/dL Urine Leukocyte Esterase Negative Negative /uL Urine RBC 1 0 - 3 /hpf Urine Microscopic WBC 5 H 0-3 /HPF Urine Squamous Epithelial Cells Few <5 /hpf Urine Bacteria None seen None Seen /hpf Urine Hyaline Casts Few 0 - 2 /lpf Urine Sperm Present None Seen /hpf Urine Glucose 4+ H Normal mg/dL Beta-Hydroxybutyric Acid 0.235 < 0.4 mmol/L Microbiology Date/Time Source Procedure Growth Status 04/12/25 21:00 Nose MRSA Screen - Final Complete 04/12/25 15:00 Blood Blood Culture - Preliminary NO GROWTH AFTER 72 HOURS OF INCUBATION. Resulted Assessment #Abdominal pain, N/V #Constipation #Diverticulosis #Fatty liver Plan/Recommendation -On PPI IV BID -Reviewed imaging studies, no acute pathology noted -Persistent severe abd pain, associated with nausea and throwing up clear liquids. No GIB noted. -Will discuss with Dr Dasilva on further GI intervention, if symptoms does not improve -Fatty liver mgmt and fibroscan as out pt -Discussed with RN bedside Thank you for the consult Plan discussed with: Patient MARIO GODINEZ MD Apr 15, 2025 21:16
[2025-04-15] MEDS: SUCRALFATE 1 GM/10 ML ORAL SUSP GT SCH (21:37)
[2025-04-16 05:00] VITALS: BP 132/73; PULSE 73; RESP 16; TEMP 97.9; O2SAT 99
[2025-04-16 06:45] LABS: Anion Gap 13 (5-15); Carbon Dioxide 25 mmol/L (20-31); Chloride 101 mmol/L (98-107); Sodium 139 mmol/L (136-145)
[2025-04-16 06:46] LABS: Calcium 9.3 mg/dL (8.7-10.4)
[2025-04-16 06:51] LABS: BUN/Creatinine Ratio 12.7 (10.0-20.0); Blood Urea Nitrogen 10 mg/dL (9-23)
[2025-04-16 06:52] LABS: Glucose 171 mg/dL (74-106); Potassium 3.2 mmol/L (3.5-5.1)
[2025-04-16 08:50] VITALS: BP 128/56; PULSE 78; RESP 19; TEMP 97.7; O2SAT 99
[2025-04-16] MEDS: PANTOPRAZOLE 40 MG/10 ML VIAL INJ IV SCH (08:53)
[2025-04-16] MEDS ORDERED: GASTROGRAFIN 120 ML SOL ONE (09:09)
[2025-04-16] MEDS: POTASSIUM CHL 20MEQ/100ML 100 ML IV ONE (11:27)
--- NOTE | 2025-04-16 13:12 | DVHPN2 ---
Subjective Patient is still complaining of abdominal pain Still has nausea and vomiting. No hematemesis No melena or red blood in stool No colonoscopy in past Changes from previous H/P or p: No Changes Objective Vitals Vital Signs Date Time Temp Pulse Resp B/P (MAP) Pulse Ox O2 Delivery O2 Flow Rate FiO2 04/16/25 12:44 109 18 132/90 04/16/25 08:50 97.7 99 97.7 04/16/25 08:00 Room Air* 0 21 Intake/Output Intake and Output 04/16/25 07:00 Intake Total 2050 ml Balance 2050 ml Intake Oral 1700 ml IV Total 350 ml # Voids 4 General Appearance: Alert, Oriented X3 Lungs: Clear to auscultation, Normal air movement, Other Cardiovascular: Regular rate, Normal S1, Normal S2, No murmurs, Gallops, Rubs, Other Abdomen: Normal bowel sounds, Soft, No tenderness, No hepatospenomegaly, No masses, Other (Generalized tenderness) Medications Current Medications Medications Dose Ordered Sig/Adina Route Start Time Stop Time Status Last Admin Dose Admin Ceftriaxone Sodium 50 ml @ 100 mls/hr DAILY@09 IV 04/13/25 09:00 04/16/25 08:27 100 MLS/HR Metronidazole 100 ml @ 100 mls/hr Q8HR IV 04/12/25 22:00 04/16/25 05:25 100 MLS/HR Ondansetron HCl 4 mg Q4HP PRN IV 04/12/25 18:30 04/16/25 12:43 4 MG Morphine Sulfate 2 mg Q4HPRN PRN IV 04/12/25 18:30 04/16/25 12:44 2 MG Diagnostic Test (Pha) 1 strip Q6HR 04/13/25 00:00 04/16/25 11:51 1 STRIP Insulin Human Regular Q6HR SC 04/13/25 00:00 04/15/25 23:16 3 UNITS Dextrose 50 ml UD PRN IV 04/12/25 18:30 Dextrose/Sodium Chloride 1,000 ml @ 75 mls/hr [id number] IV 04/13/25 11:00 04/15/25 06:13 75 MLS/HR Acetaminophen/ Hydrocodone Bitart 1 tab Q4HPRN PRN PO 04/14/25 09:00 04/16/25 06:27 1 TAB Acetaminophen 650 mg Q6HP PRN PO 04/14/25 09:00 Docusate Sodium 100 mg BID PO 04/14/25 10:00 04/15/25 21:38 100 MG Dicyclomine HCl 20 mg BID PRN PO 04/15/25 15:45 Sucralfate 1 gm BID GT 04/15/25 22:00 04/15/25 21:37 1 GM Pantoprazole Sodium 40 mg BID IV 04/16/25 10:00 04/16/25 08:53 40 MG Laboratory Results Laboratory Tests 04/14/25 15:06 04/16/25 05:52 Chemistry Test 04/16/25 05:52 Calcium Level 9.3 mg/dL (8.7-10.4) Magnesium Level 2.0 mg/dL (1.6-2.6) Urinalysis Test 04/12/25 14:30 Urine Color Light-yellow (Yellow) Urine Clarity Clear (Clear) Urine pH 6.0 (5.0-9.0) Urine Specific [place] 1.015 (1.001-1.035) Urine Protein Negative (Negative) Urine Ketones 1+ (Negative) H Urine Blood Negative /uL (Negative) Urine Nitrite Negative (Negative) Urine Bilirubin Negative (Negative) Urine Urobilinogen Normal mg/dL (Negative) Urine Leukocyte Esterase Negative /uL (Negative) Urine RBC 1 /hpf (0 - 3) Urine Microscopic WBC 5 /HPF (0-3) H Urine Squamous Epithelial Cells Few /hpf (<5) Urine Bacteria None seen /hpf (None Seen) Urine Hyaline Casts Few /lpf (0 - 2) Urine Sperm Present /hpf (None Seen) Urine Glucose 4+ mg/dL (Normal) H Microbiology Microbiology Date/Time Source Procedure Growth Status 04/12/25 21:00 Nose MRSA Screen - Final Complete 04/12/25 15:00 Blood Blood Culture - Preliminary NO GROWTH AFTER 72 HOURS OF INCUBATION. Resulted Labs and/or images reviewed: Labs reviewed by me, Image(s) reviewed by me Assessment/Plan Assessment/Plan Abdominal pain Nausea vomiting History of gastritis Fatty liver Plan Discussed with Dr. Dasilva Pain management per hospital team Zofran and Protonix Supportive care recommended We will continue to follow patient Plan discussed with: Patient Date of Service: Apr 16, 2025 Billing Provider: EVA PRICE Common Visit Codes: [id number] INP/OBS CARE(HIGH) EVA PRICE Apr 16, 2025 13:12
[2025-04-16 13:25] VITALS: BP 160/98; PULSE 85; RESP 17; TEMP 98.1; O2SAT 97
[2025-04-16] MEDS: LACTULOSE 20Gm/30ML SOLN PO ONE (14:30)
[2025-04-16] MEDS: METOCLOPRAMIDE HCL 5MG/ml INJ 2ml VIAL IV ONE (14:50)
--- NOTE | 2025-04-16 15:39 | DVH ---
Procedure: XY SMALL BOWEL SERIES-W GASTROGRA Reason for study/Clinical History: Evaluate sbo Comparison Study: None Technique: Single contrast small bowel series performed. 100 mL of Gastrografin were given by mouth a nd serial filming was obtained FINDINGS/IMPRESSION: Initial industrial automation specialist view of the abdomen and pelvis appears demonstrates no acute process. Contrast is identified within the colon by 30 minute delayed. This represents a normal small bowel t ransit time.
--- NOTE | 2025-04-16 16:25 | DVHPNRES ---
Progress Note Date Seen: Apr 16, 2025 Resident Creating Document: MIGUEL CARABALLO RESIDENT Has the PT tested + for MRSA If YES, has PT been informed?: No Medical Necessity Reason Pt with a Central, PICC or Fol: No Subjective Review of Systems Eliu Nj is a 44-year-old male has past medical history of insulin- dependent diabetes mellitus, dyslipidemia. he presented to the ER with chief complaint of intractable abdominal pain, causing nausea and vomiting. he complains of abdominal pain starting 2 years ago, has been on and off. He complains of worsening pain since last 1 week. Since last 2 days, he started complaining of abdominal pain which caused him to vomit. The pain is 10 on 10, sharp, cramp like. Associated with nausea, vomiting with chills. Vomitus is yellow, bile like liquid in consistency. he also complains of associated constipation. He saw blood on stools after straining. Denied fever, headache, chest pain, shortness of breath, diarrhea. He had not traveled recently. Reported undergoing EGD 4 months ago, which showed no upper GI abnormality. Upon admission, he had tachycardia, labs showed elevated neutrophils, WBCs, platelet, lactic acid. Urine analysis showed ketones, glucose. After admission, he was started on IV fluids, IV ceftriaxone, metronidazole, Zofran. 04/13/25: He was in acute distress, abdominal palpation resulted in an episode of vomiting. The vomitus was watery, green in color. Today his labs show hemoglobin down to 12.8. His HbA1c is 9.3 and lactic acidosis has resolved now. 04/14/25:Vital signs within normal limits, and labs were reviewed, the leukocytocsis has improved from 18.2x10e3 to 10.7x10e3. Patient reports pain 7/10 in the epigastric area, no nausea or vomit, he has not had a bowel movement since 2 days ago, but he is passing gasses. Docusate was iniciated. GI is onboard to evaluate possible colonoscopy. We will follow up the progress of this patient. 04/15/25: He was examined at bedside today. Continues to complain of intractable abdominal pain, associated with nausea and vomiting. The vomitus is watery, green in color. His labs show hemoglobin stabilized. Neutrophils and WBCs have normalized. Lactic acidosis has resolved now. GI is consulted. 04/16/2025: Patient was seen and examined by me at the bedside today. Patient continues to have abdominal pain that radiates from his epigastric region to the suprapubic region. He rates it as 8/10 in intensity. He also complains that he has been vomiting many times at night and that Zofran has not helped much. Today GI saw him and have suggested continuation of Protonix and Zofran. X-ray small bowel series was done today which was unremarkable. We have started the patient on lactulose 30 mL b.i.d and Patient had a bowel movement today. Zofran is being stopped, metoclopramide 5 mg IV Q8 ADINA started. Potassium was 3.2 and has been repleted. Magnesium levels came back normal. Objective vital signs Vital Sign Date Time Temp Pulse Resp B/P (MAP) Pulse Ox O2 Delivery O2 Flow Rate FiO2 04/16/25 13:25 98.1 85 17 160/98 (118) 97 98.1 04/16/25 08:00 Room Air* 0 21 Total Intake and Output 04/15/25 04/15/25 04/16/25 14:59 22:59 06:59 Intake Total 250 ml 1000 ml 800 ml Balance 250 ml 1000 ml 800 ml medications Current Medications Medications Dose Ordered Sig/Adina Route Start Time Stop Time Status Last Admin Dose Admin Ceftriaxone Sodium 50 ml @ 100 mls/hr DAILY@09 IV 04/13/25 09:00 04/16/25 08:27 100 MLS/HR Metronidazole 100 ml @ 100 mls/hr Q8HR IV 04/12/25 22:00 04/16/25 13:55 100 MLS/HR Ondansetron HCl 4 mg Q4HP PRN IV 04/12/25 18:30 04/16/25 12:43 4 MG Morphine Sulfate 2 mg Q4HPRN PRN IV 04/12/25 18:30 04/16/25 12:44 2 MG Diagnostic Test (Pha) 1 strip Q6HR 04/13/25 00:00 04/16/25 11:51 1 STRIP Insulin Human Regular Q6HR SC 04/13/25 00:00 04/15/25 23:16 3 UNITS Dextrose 50 ml UD PRN IV 04/12/25 18:30 Dextrose/Sodium Chloride 1,000 ml @ 75 mls/hr [id number] IV 04/13/25 11:00 04/15/25 06:13 75 MLS/HR Acetaminophen/ Hydrocodone Bitart 1 tab Q4HPRN PRN PO 04/14/25 09:00 04/16/25 06:27 1 TAB Acetaminophen 650 mg Q6HP PRN PO 04/14/25 09:00 Docusate Sodium 100 mg BID PO 04/14/25 10:00 04/15/25 21:38 100 MG Dicyclomine HCl 20 mg BID PRN PO 04/15/25 15:45 Sucralfate 1 gm BID GT 04/15/25 22:00 04/15/25 21:37 1 GM Pantoprazole Sodium 40 mg BID IV 04/16/25 10:00 04/16/25 08:53 40 MG Lactulose 30 ml BID PO 04/16/25 22:00 Metoclopramide HCl 5 mg Q8HR IV 04/16/25 22:00 Examination General: Patient alert and oriented in person, place and time. Patient following commands. HEENT: Normocephalic, atraumatic, moist mucous membranes Respiratory/pulmonary: Clear lungs bilaterally, vesicular murmurs present in almost all lung johnson, no associated crackles or wheezes. Cardiovascular: Normal heart sounds S1 and S2 with no associated murmurs Abdomen: Bowel sounds present, tenderness in the epigastric region with mild palpation. No guarding, rigidity, no palpable masses. Extremities: There is no peripheral edema present at the lower extremities. Peripheral Pulses: 3+ Radial (R). 3+ Radial (L). 3+ Dorsalis pedis (R). 3+ Dorsalis pedis(L) Skin: No rashes or pruritus, there is no sacral edema present at this time. Neurological: Intact cranial nerves with no focal neurologic deficits laboratory and microbiology Laboratory Tests 04/16/25 05:52 04/14/25 15:06 Test 04/16/25 05:52 Range/Units Serum Glucose 171 H 74-106 mg/dL Microbiology Date/Time Source Procedure Growth Status 04/12/25 21:00 Nose MRSA Screen - Final Complete 04/12/25 15:00 Blood Blood Culture - Preliminary NO GROWTH AFTER 72 HOURS OF INCUBATION. Resulted Labs and/or images reviewed: Labs reviewed by me, Image(s) reviewed by me Problem List/Assessment/Plan Problem List/Assessment/Plan #Sepsis due to acute gastroenteritis, infection possible #Rule out SBO #Possible cyclic vomiting syndrome/ Cannibis hyperemesis syndrome #Lactic acidosis, resolved #Gastritis, possible #Intractable abdominal pain, nausea, vomiting due to above -EGD done 4 months ago showed mild gastritis. -Tachycardia -Blood culture negative -Continue on IV fluids -Continue IV ceftriaxone and metronidazole -Continue Bentyl p.r.n. for abdominal cramps -Switch to Carafate b.i.d. -Zofran switched to metoclopramide 5 mg IV Q 8 ADINA -Lactulose 30 mL b.i.d. -X-ray small bowel series done today (04/16/25) Initial industrial illuminating engineer view of the abdomen and pelvis appears demonstrates no acute process. #Rule out mesenteric ischemia #Mesenteric adenitis, possible -CT abdomen revealed mildly prominent right lower quadrant mesenteric nodes. Correlate for mesenteric adenitis. -CT w/ IV and oral contrast revealed colonic diverticular disease, hepatic steatosis, atherosclerotic disease and no SBO. #Normocytic normochromic anemia, rule out bleeding -Hemoglobin down from 16 0.3-12.8 today -Stool occult blood ordered -GI consulted, suggested continuation of Protonix and Zofran #Insulin-dependent diabetes mellitus #Gastroparesis, possible -Continue on sliding scale insulin -Hb A1c 9.3 #Diverticulosis, diverticulitis ruled out -CT shows diverticulosis without diverticulitis -GI Consult #Hyperlipidemia -Increased LDL, low HDL #Hypernatremia -Labs show sodium 146 -Continue monitoring electrolytes #Pancreatitis, ruled out -Ordered lipase: Lipase 24 #Hypokalemia -Repleted -Magnesium levels normal GI prophylaxis: Protonix 40 mg IV daily DVT prophylaxis: ambulating Diet: NPO Goals of care discussed with the patient for more than 27 minutes: Full code status Case discussed with Dr. Viramontes patient and nurse. Plan discussed with: Patient, Other (rn) Dietary Evaluation Review Recommendations by RD: Dietary education by RD Comments: 1) Encourage optimal PO intake 2) Advance to 60g CCHO cardiac diet when medically feasible 3) Advise patient to limit intake of added sugars including sugar-sweetened beverages, candy, desserts, etc. 4) Refer to outpatient RD/CD[facility] for diabetes education 5) Follow-up with gastroenterology and nephrology 6) Continue to monitor I&O, labs, and skin integrity Expected Outcomes/Goals: 1) appetite and labs to improve 2) GI symptoms to resolve 3) diet to advance 4) f/u in 3-5 days Date of Service: Apr 16, 2025 Billing Provider: RAFAEL VARGHESE MD Common Visit Codes: 88464-[id number] INP/OBS CARE(HIGH) MIGUEL CARABALLO RESIDENT Apr 16, 2025 16:25 RAFAEL VARGHESE MD Apr 18, 2025 01:55
[2025-04-16 17:15] VITALS: BP 135/83; PULSE 98; RESP 17; TEMP 99.2; O2SAT 98
[2025-04-16 20:00] VITALS: PULSE 84; RESP 18; O2SAT 98
[2025-04-16 21:00] VITALS: BP 138/84; PULSE 82; RESP 18; TEMP 97.9; O2SAT 98
[2025-04-16] MEDS: METOCLOPRAMIDE HCL 5MG/ml INJ 2ml VIAL IV SCH (21:57)
[2025-04-16] MEDS: LACTULOSE 20Gm/30ML SOLN PO SCH (22:03)
[2025-04-17 02:00] VITALS: BP 159/94; PULSE 83; RESP 18; TEMP 97.8; O2SAT 98
[2025-04-17 06:14] LABS: Calcium 8.8 mg/dL (8.7-10.4); Chloride 100 mmol/L (98-107); Hematocrit 38.5 % (41.0-53.0); Hemoglobin 13.5 g/dL (13.5-17.5); Mean Corpuscular Hemoglobin 29.2 pg (28.0-32.0); Mean Corpuscular Volume 83.4 fL (80.0-100.0); Nucleated Red Blood Cells % 0.1 %; Potassium 3.5 mmol/L (3.5-5.1); Sodium 139 mmol/L (136-145)
[2025-04-17 06:15] LABS: Anion Gap 8 (5-15); Carbon Dioxide 31 mmol/L (20-31)
[2025-04-17 06:20] LABS: BUN/Creatinine Ratio 10.2 (10.0-20.0)
[2025-04-17 06:25] LABS: Blood Urea Nitrogen 9 mg/dL (9-23); Glucose 224 mg/dL (74-106)
[2025-04-17] MEDS ORDERED: POTASSIUM CHL 20 Meq TABLET PO ONE (06:30)
[2025-04-17 09:00] VITALS: BP 152/94; PULSE 74; RESP 18; TEMP 98.7; O2SAT 99
[2025-04-17 13:00] VITALS: BP 158/92; PULSE 74; RESP 18; TEMP 98.9; O2SAT 98
--- NOTE | 2025-04-17 14:56 | DVHPN2 ---
Progress Note Date Seen: Apr 17, 2025 Resident Creating Document: KAYLAN ISIDRO RESIDENT Has the PT tested + for MRSA If YES, has PT been informed?: No Medical Necessity Reason Pt with a Central, PICC or Fol: No Subjective Review of Systems 04/17/25 44-year-old male with a history of insulin-dependent diabetes mellitus, dyslipidemia, gastritis, and fatty liver continues to report severe epigastric abdominal pain radiating to the Throat, rated 89/10, associated with persistent nausea, retching, and bilious vomiting. Overnight, he had one watery bowel movement. No hematemesis or melena. Pain remains refractory despite antiemetics and analgesics. Currently on clear liquids and was kept NPO this morning in preparation for the scheduled EGD tomorrow. Todays Clinical Progress * Persistent severe pain despite IV antiemetics and analgesics * Ongoing nausea/vomiting despite Zofran; Reglan initiated with partial effect * Patient remains hemodynamically stable but hypertensive (BP 164/91) * I/O: adequate urine output, emesis 800 mL, stool watery * Physical exam: severe epigastric tenderness, mild guarding, no rebound New Labs / Imaging Labs: * WBC improved to 7.6 (normalized) * Hemoglobin stable at 13.5 * Lactic acid normalized * Stool occult blood negative Imagin. Small Bowel Series (04/16/25): * No acute process * Contrast reached colon in 30 min ? normal small bowel transit time 2. CT Abdomen/Pelvis (Non-contrast): * Diverticulosis without acute diverticulitis * Mildly prominent mesenteric nodes ? possible mesenteric adenitis * No ascites, no acute abdominopelvic abnormality * Minimal aortoiliac atherosclerosis 3. CT Abdomen/Pelvis (With IV contrast): * Gastric distention, normal small bowel caliber * Moderate stool burden in colon * Hepatic steatosis, colonic diverticular disease * No high-grade obstruction, no free fluid Review of Systems (GI-focused) * Constitutional: No fever or chills * GI: Severe abdominal pain, nausea, bilious vomiting, watery diarrhea x1, no hematemesis, no melena * Other systems: Negative for GI relevance Objective vital signs Vital Sign Date Time Temp Pulse Resp B/P (MAP) Pulse Ox O2 Delivery O2 Flow Rate FiO2 04/17/25 11:18 89 20 164/91 04/17/25 09:00 98.7 99 98.7 04/17/25 08:00 Room Air* 0 21 Total Intake and Output 04/16/25 04/16/25 04/17/25 15:00 23:00 07:00 Intake Total 300 ml 700 ml 500 ml Balance 300 ml 700 ml 500 ml medications Current Medications Medications Dose Ordered Sig/Adina Route Start Time Stop Time Status Last Admin Dose Admin Ceftriaxone Sodium 50 ml @ 100 mls/hr DAILY@09 IV 04/13/25 09:00 04/17/25 08:54 100 MLS/HR Metronidazole 100 ml @ 100 mls/hr Q8HR IV 04/12/25 22:00 04/17/25 06:14 100 MLS/HR Ondansetron HCl 4 mg Q4HP PRN IV 04/12/25 18:30 04/17/25 11:17 4 MG Morphine Sulfate 2 mg Q4HPRN PRN IV 04/12/25 18:30 04/17/25 11:18 2 MG Diagnostic Test (Pha) 1 strip Q6HR 04/13/25 00:00 04/17/25 11:34 1 STRIP Insulin Human Regular Q6HR SC 04/13/25 00:00 04/17/25 11:38 2 UNITS Dextrose 50 ml UD PRN IV 04/12/25 18:30 Dextrose/Sodium Chloride 1,000 ml @ 75 mls/hr [id number] IV 04/13/25 11:00 04/15/25 06:13 75 MLS/HR Acetaminophen/ Hydrocodone Bitart 1 tab Q4HPRN PRN PO 04/14/25 09:00 04/17/25 06:20 1 TAB Acetaminophen 650 mg Q6HP PRN PO 04/14/25 09:00 Docusate Sodium 100 mg BID PO 04/14/25 10:00 04/17/25 11:26 100 MG Dicyclomine HCl 20 mg BID PRN PO 04/15/25 15:45 Sucralfate 1 gm BID GT 04/15/25 22:00 04/17/25 11:24 1 GM Pantoprazole Sodium 40 mg BID IV 04/16/25 10:00 04/17/25 11:29 40 MG Lactulose 30 ml BID PO 04/16/25 22:00 04/17/25 11:25 30 ML Metoclopramide HCl 5 mg Q8HR IV 04/16/25 22:00 04/17/25 06:15 5 MG Amlodipine Besylate 5 mg DAILY PO 04/17/25 13:34 Examination * General: Patient in visible distress due to pain * Abdomen: Soft, diffusely tender (max in epigastrium), guarding present, no rebound, bowel sounds positive * Skin: No jaundice * Rectal: Deferred laboratory and microbiology Laboratory Tests 04/17/25 05:33 Test 04/17/25 05:33 Range/Units Serum Glucose 224 H 74-106 mg/dL Microbiology Date/Time Source Procedure Growth Status 04/12/25 21:00 Nose MRSA Screen - Final Complete 04/12/25 15:00 Blood Blood Culture - Preliminary NO GROWTH AFTER 72 HOURS OF INCUBATION. Resulted Problem List/Assessment/Plan Problem List/Assessment/Plan Assessment 1. Intractable Epigastric Abdominal Pain with Persistent Vomiting * Likely upper GI etiology (erosive gastritis, peptic ulcer, severe esophagitis, or other mucosal pathology) * Cyclic vomiting syndrome vs. diabetic gastroparesis also considered VS Cannabis vomiting syndrome * Less likely: SBO, mesenteric ischemia (imaging negative) 2. Watery Diarrhea infectious process unlikely; stool occult negative 3. History of Gastritis and Fatty Liver relevant comorbid factors 4. Resolved Sepsis/Lactic Acidosis currently stable Plan (GI-Focused) * Diagnostic: * Proceed with EGD tomorrow to rule out peptic ulcer, erosive gastritis, esophagitis, or malignancy. * Monitor for changes in pain or bleeding. * Therapeutic: * Continue NPO after midnight. * Maintain IV Protonix 40 mg BID and Sucralfate suspension BID. * Continue IV Reglan 5 mg Q8H. * Continue PRN IV Morphine for breakthrough pain. * Maintain IV Ceftriaxone and Metronidazole pending endoscopic findings. * IV fluids: continue isotonic hydration. * Supportive: * Antiemetics (Zofran PRN) * Electrolyte monitoring and repletion * Pain management with minimal narcotics Case discussed in detail with the attending physician, including the clinical presentation, diagnostic workup, and comprehensive management plan. The patient was present for the discussion and demonstrated understanding of his condition and the proposed plan. Plan discussed with: Patient My Orders My Orders Orders - KAYLAN ISIDRO RESIDENT Procedure Category Date Status Time Obtain Consent For: ORDERS 04/17/25 Transmitted 14:04 Npo (Nothing By DIET 04/18/25 Transmitted Mouth) Diet Breakfast Obtain Consent For LUKE 04/17/25 In Process Anesthesia 14:04 Dietary Evaluation Review Recommendations by RD: Dietary education by RD Comments: 1) Encourage optimal PO intake 2) Advance to 60g CCHO cardiac diet when medically feasible 3) Advise patient to limit intake of added sugars including sugar-sweetened beverages, candy, desserts, etc. 4) Refer to outpatient RD/[facility] for diabetes education 5) Follow-up with gastroenterology and nephrology 6) Continue to monitor I&O, labs, and skin integrity Expected Outcomes/Goals: 1) appetite and labs to improve 2) GI symptoms to resolve 3) diet to advance 4) f/u in 3-5 days KAYLAN ISIDRO RESIDENT Apr 17, 2025 14:56
--- NOTE | 2025-04-17 16:48 | DVHPNRES ---
Progress Note Date Seen: Apr 17, 2025 Resident Creating Document: MIGUEL CARABALLO RESIDENT Has the PT tested + for MRSA If YES, has PT been informed?: No Medical Necessity Reason Pt with a Central, PICC or Fol: No Subjective Review of Systems Eliu Nj is a 44-year-old male has past medical history of insulin- dependent diabetes mellitus, dyslipidemia. he presented to the ER with chief complaint of intractable abdominal pain, causing nausea and vomiting. he complains of abdominal pain starting 2 years ago, has been on and off. He complains of worsening pain since last 1 week. Since last 2 days, he started complaining of abdominal pain which caused him to vomit. The pain is 10 on 10, sharp, cramp like. Associated with nausea, vomiting with chills. Vomitus is yellow, bile like liquid in consistency. he also complains of associated constipation. He saw blood on stools after straining. Denied fever, headache, chest pain, shortness of breath, diarrhea. He had not traveled recently. Reported undergoing EGD 4 months ago, which showed no upper GI abnormality. Upon admission, he had tachycardia, labs showed elevated neutrophils, WBCs, platelet, lactic acid. Urine analysis showed ketones, glucose. After admission, he was started on IV fluids, IV ceftriaxone, metronidazole, Zofran. 04/13/25: He was in acute distress, abdominal palpation resulted in an episode of vomiting. The vomitus was watery, green in color. Today his labs show hemoglobin down to 12.8. His HbA1c is 9.3 and lactic acidosis has resolved now. 04/14/25:Vital signs within normal limits, and labs were reviewed, the leukocytocsis has improved from 18.2x10e3 to 10.7x10e3. Patient reports pain 7/10 in the epigastric area, no nausea or vomit, he has not had a bowel movement since 2 days ago, but he is passing gasses. Docusate was iniciated. GI is onboard to evaluate possible colonoscopy. We will follow up the progress of this patient. 04/15/25: He was examined at bedside today. Continues to complain of intractable abdominal pain, associated with nausea and vomiting. The vomitus is watery, green in color. His labs show hemoglobin stabilized. Neutrophils and WBCs have normalized. Lactic acidosis has resolved now. GI is consulted. 04/16/2025: Patient was seen and examined by me at the bedside today. Patient continues to have abdominal pain that radiates from his epigastric region to the suprapubic region. He rates it as 8/10 in intensity. He also complains that he has been vomiting many times at night and that Zofran has not helped much. Today GI saw him and have suggested continuation of Protonix and Zofran. X-ray small bowel series was done today which was unremarkable. We have started the patient on lactulose 30 mL b.i.d and Patient had a bowel movement today. Zofran is being stopped, metoclopramide 5 mg IV Q8 ADINA started. Potassium was 3.2 and has been repleted. Magnesium levels came back normal. 04/17/2025: Patient was seen and examined by me at the bedside today. Overnight events were reviewed. Patient reports that his vomiting has decreased and that he had 2 bowel movements yesterday. He still complains of abdominal pain which is 8/ 10 in intensity. He has been able to tolerate dose says he still not hungry. Patient's stool occult blood came negative. GI consultation is suggested EGD for patient tomorrow. Objective vital signs Vital Sign Date Time Temp Pulse Resp B/P (MAP) Pulse Ox O2 Delivery O2 Flow Rate FiO2 04/17/25 15:42 74 18 170/98 04/17/25 13:00 98.9 98 98.9 04/17/25 08:00 Room Air* 0 21 Total Intake and Output 04/16/25 04/16/25 04/17/25 15:00 23:00 07:00 Intake Total 300 ml 700 ml 500 ml Balance 300 ml 700 ml 500 ml medications Current Medications Medications Dose Ordered Sig/Adina Route Start Time Stop Time Status Last Admin Dose Admin Ceftriaxone Sodium 50 ml @ 100 mls/hr DAILY@09 IV 04/13/25 09:00 04/17/25 08:54 100 MLS/HR Metronidazole 100 ml @ 100 mls/hr Q8HR IV 04/12/25 22:00 04/17/25 15:48 100 MLS/HR Ondansetron HCl 4 mg Q4HP PRN IV 04/12/25 18:30 04/17/25 11:17 4 MG Morphine Sulfate 2 mg Q4HPRN PRN IV 04/12/25 18:30 04/17/25 15:42 2 MG Diagnostic Test (Pha) 1 strip Q6HR 04/13/25 00:00 04/17/25 11:34 1 STRIP Insulin Human Regular Q6HR SC 04/13/25 00:00 04/17/25 11:38 2 UNITS Dextrose 50 ml UD PRN IV 04/12/25 18:30 Dextrose/Sodium Chloride 1,000 ml @ 75 mls/hr [id number] IV 04/13/25 11:00 04/15/25 06:13 75 MLS/HR Acetaminophen/ Hydrocodone Bitart 1 tab Q4HPRN PRN PO 04/14/25 09:00 04/17/25 06:20 1 TAB Acetaminophen 650 mg Q6HP PRN PO 04/14/25 09:00 Docusate Sodium 100 mg BID PO 04/14/25 10:00 04/17/25 11:26 100 MG Dicyclomine HCl 20 mg BID PRN PO 04/15/25 15:45 Sucralfate 1 gm BID GT 04/15/25 22:00 04/17/25 11:24 1 GM Pantoprazole Sodium 40 mg BID IV 04/16/25 10:00 04/17/25 11:29 40 MG Lactulose 30 ml BID PO 04/16/25 22:00 04/17/25 11:25 30 ML Metoclopramide HCl 5 mg Q8HR IV 04/16/25 22:00 04/17/25 15:37 5 MG Amlodipine Besylate 5 mg DAILY PO 04/17/25 13:34 04/17/25 13:34 5 MG Examination General: Patient alert and oriented in person, place and time. Patient following commands. HEENT: Normocephalic, atraumatic, moist mucous membranes Respiratory/pulmonary: Clear lungs bilaterally, vesicular murmurs present in almost all lung johnson, no associated crackles or wheezes. Cardiovascular: Normal heart sounds S1 and S2 with no associated murmurs Abdomen: Bowel sounds present, tenderness in the epigastric region with mild palpation. No guarding, rigidity, no palpable masses. Extremities: There is no peripheral edema present at the lower extremities. Peripheral Pulses: 3+ Radial (R). 3+ Radial (L). 3+ Dorsalis pedis (R). 3+ Dorsalis pedis(L) Skin: No rashes or pruritus, there is no sacral edema present at this time. Neurological: Intact cranial nerves with no focal neurologic deficits laboratory and microbiology Laboratory Tests 04/17/25 05:33 Test 04/17/25 05:33 Range/Units Serum Glucose 224 H 74-106 mg/dL Microbiology Date/Time Source Procedure Growth Status 04/12/25 21:00 Nose MRSA Screen - Final Complete 04/12/25 15:00 Blood Blood Culture - Final NO GROWTH AFTER 5 DAYS OF INCUBATION. Complete Labs and/or images reviewed: Labs reviewed by me, Image(s) reviewed by me Problem List/Assessment/Plan Problem List/Assessment/Plan #Sepsis due to acute gastroenteritis, infection possible #Rule out SBO #Possible cyclic vomiting syndrome/ Cannibis hyperemesis syndrome #Lactic acidosis, resolved #Gastritis, possible #Intractable abdominal pain, nausea, vomiting due to above -EGD done 4 months ago showed mild gastritis. -Tachycardia -Blood culture negative -Continue on IV fluids -Continue IV ceftriaxone and metronidazole -Continue Bentyl p.r.n. for abdominal cramps -Switch to Carafate b.i.d. -Zofran switched to metoclopramide 5 mg IV Q 8 ADINA -Lactulose 30 mL b.i.d. -X-ray small bowel series done today (04/16/25) Initial hog scalder view of the abdomen and pelvis appears demonstrates no acute process. -GI consulted, suggested EGD tomorrow #Rule out mesenteric ischemia #Mesenteric adenitis, possible -CT abdomen revealed mildly prominent right lower quadrant mesenteric nodes. Correlate for mesenteric adenitis. -CT w/ IV and oral contrast revealed colonic diverticular disease, hepatic steatosis, atherosclerotic disease and no SBO. #Normocytic normochromic anemia, rule out bleeding -Hemoglobin down from 16 0.3-12.8 today -Stool occult blood Negative #Insulin-dependent diabetes mellitus #Gastroparesis, possible -Continue on sliding scale insulin -Hb A1c 9.3 #Diverticulosis, diverticulitis ruled out -CT shows diverticulosis without diverticulitis -GI Consult #Hyperlipidemia -Increased LDL, low HDL #Hypernatremia -Labs show sodium 146 -Continue monitoring electrolytes #Pancreatitis, ruled out -Ordered lipase: Lipase 24 #Hypokalemia -Repleted -Magnesium levels normal GI prophylaxis: Protonix 40 mg IV daily DVT prophylaxis: ambulating Diet: NPO Goals of care discussed with the patient for more than 27 minutes: Full code status Case discussed with Dr. Viramontes patient and nurse. Plan discussed with: Patient, Other (rn) Dietary Evaluation Review Recommendations by RD: Dietary education by RD Comments: 1) Encourage optimal PO intake 2) Advance to 60g CCHO cardiac diet when medically feasible 3) Advise patient to limit intake of added sugars including sugar-sweetened beverages, candy, desserts, etc. 4) Refer to outpatient RD/[facility] for diabetes education 5) Follow-up with gastroenterology and nephrology 6) Continue to monitor I&O, labs, and skin integrity Expected Outcomes/Goals: 1) appetite and labs to improve 2) GI symptoms to resolve 3) diet to advance 4) f/u in 3-5 days Date of Service: Apr 17, 2025 Billing Provider: RAFAEL VARGHESE MD Common Visit Codes: [id number] INP/OBS CARE(HIGH) MIGUEL CARABALLO RESIDENT Apr 17, 2025 16:48 RAFAEL VARGHESE MD Apr 18, 2025 02:01
[2025-04-17 17:00] VITALS: BP 144/89; PULSE 90; RESP 18; TEMP 99.2; O2SAT 99
[2025-04-17 20:00] VITALS: PULSE 72; RESP 20; O2SAT 98
[2025-04-17 21:00] VITALS: BP 135/80; PULSE 72; RESP 20; TEMP 99.5; O2SAT 98
[2025-04-18] VITALS (7 sets, daily range): BP systolic 141–150; BP diastolic 81–97; PULSE 64–92; RESP 16–20; TEMP 98.2–98.6; O2SAT 95–100
[2025-04-18 07:05] LABS: Hematocrit 37.2 % (41.0-53.0); Hemoglobin 13.0 g/dL (13.5-17.5); Mean Corpuscular Hemoglobin 29.0 pg (28.0-32.0); Mean Corpuscular Volume 82.8 fL (80.0-100.0); Nucleated Red Blood Cells % 0.1 %
[2025-04-18 07:36] LABS: Alanine Aminotransferase 23 U/L (7-40); Albumin 4.0 g/dL (3.2-4.8); Alkaline Phosphatase 67 U/L (46-116); Anion Gap 11 (5-15); Calcium 9.2 mg/dL (8.7-10.4); Carbon Dioxide 29 mmol/L (20-31); Sodium 138 mmol/L (136-145)
[2025-04-18 07:38] LABS: Chloride 98 mmol/L (98-107); Potassium 2.6 mmol/L (3.5-5.1)
[2025-04-18 08:17] LABS: BUN/Creatinine Ratio 5.7 (10.0-20.0); Blood Urea Nitrogen 5 mg/dL (9-23); Glucose 134 mg/dL (74-106); Total Protein 6.2 g/dL (5.7-8.2)
[2025-04-18 08:19] LABS: Bilirubin, Total 0.5 mg/dL (0.2-1.0)
[2025-04-18] MEDS: POTASSIUM CHLORIDE 60 MEQ, LIDOCAINE 1% (LOCAL ANESTH.) 6 ML in SODIUM CHL 0.9% 500 ML IV ONE (10:14)
--- NOTE | 2025-04-18 11:25 | DVHPNRES ---
Progress Note Date Seen: Apr 18, 2025 Resident Creating Document: MIGUEL CARABALLO RESIDENT Has the PT tested + for MRSA If YES, has PT been informed?: No Medical Necessity Reason Pt with a Central, PICC or Fol: No Subjective Review of Systems Eliu Nj is a 44-year-old male has past medical history of insulin- dependent diabetes mellitus, dyslipidemia. he presented to the ER with chief complaint of intractable abdominal pain, causing nausea and vomiting. he complains of abdominal pain starting 2 years ago, has been on and off. He complains of worsening pain since last 1 week. Since last 2 days, he started complaining of abdominal pain which caused him to vomit. The pain is 10 on 10, sharp, cramp like. Associated with nausea, vomiting with chills. Vomitus is yellow, bile like liquid in consistency. he also complains of associated constipation. He saw blood on stools after straining. Denied fever, headache, chest pain, shortness of breath, diarrhea. He had not traveled recently. Reported undergoing EGD 4 months ago, which showed no upper GI abnormality. Upon admission, he had tachycardia, labs showed elevated neutrophils, WBCs, platelet, lactic acid. Urine analysis showed ketones, glucose. After admission, he was started on IV fluids, IV ceftriaxone, metronidazole, Zofran. 04/13/25: He was in acute distress, abdominal palpation resulted in an episode of vomiting. The vomitus was watery, green in color. Today his labs show hemoglobin down to 12.8. His HbA1c is 9.3 and lactic acidosis has resolved now. 04/14/25:Vital signs within normal limits, and labs were reviewed, the leukocytocsis has improved from 18.2x10e3 to 10.7x10e3. Patient reports pain 7/10 in the epigastric area, no nausea or vomit, he has not had a bowel movement since 2 days ago, but he is passing gasses. Docusate was iniciated. GI is onboard to evaluate possible colonoscopy. We will follow up the progress of this patient. 04/15/25: He was examined at bedside today. Continues to complain of intractable abdominal pain, associated with nausea and vomiting. The vomitus is watery, green in color. His labs show hemoglobin stabilized. Neutrophils and WBCs have normalized. Lactic acidosis has resolved now. GI is consulted. 04/16/2025: Patient was seen and examined by me at the bedside today. Patient continues to have abdominal pain that radiates from his epigastric region to the suprapubic region. He rates it as 8/10 in intensity. He also complains that he has been vomiting many times at night and that Zofran has not helped much. Today GI saw him and have suggested continuation of Protonix and Zofran. X-ray small bowel series was done today which was unremarkable. We have started the patient on lactulose 30 mL b.i.d and Patient had a bowel movement today. Zofran is being stopped, metoclopramide 5 mg IV Q8 ADINA started. Potassium was 3.2 and has been repleted. Magnesium levels came back normal. 04/17/2025: Patient was seen and examined by me at the bedside today. Overnight events were reviewed. Patient reports that his vomiting has decreased and that he had 2 bowel movements yesterday. He still complains of abdominal pain which is 8/ 10 in intensity. He has been able to tolerate dose says he still not hungry. Patient's stool occult blood came negative. GI consultation is suggested EGD for patient tomorrow. 04/18/2025. Patient was seen and examined by me at the bedside. Overnight events were reviewed. Patient reports that his abdominal pain is a bit better and rates it as 7/10. He still complains of diarrhea 5-6 times since yesterday night till today morning. He says his vomiting is improved and he feels a bit hungry. Patient had EGD done today. His potassium levels before EGD was 2.6 and it was repleted 40 mEq. Objective vital signs Vital Sign Date Time Temp Pulse Resp B/P (MAP) Pulse Ox O2 Delivery O2 Flow Rate FiO2 04/18/25 10:07 87 19 147/86 04/18/25 09:00 98.2 97 98.2 04/18/25 08:00 Room Air* 0 21 Total Intake and Output 04/17/25 04/17/25 04/18/25 15:00 23:00 07:00 Intake Total 150 ml 454 ml 1450 ml Balance 150 ml 454 ml 1450 ml medications Current Medications Medications Dose Ordered Sig/Adina Route Start Time Stop Time Status Last Admin Dose Admin Ceftriaxone Sodium 50 ml @ 100 mls/hr DAILY@09 IV 04/13/25 09:00 04/18/25 09:26 100 MLS/HR Metronidazole 100 ml @ 100 mls/hr Q8HR IV 04/12/25 22:00 04/18/25 05:40 100 MLS/HR Ondansetron HCl 4 mg Q4HP PRN IV 04/12/25 18:30 04/18/25 10:09 4 MG Morphine Sulfate 2 mg Q4HPRN PRN IV 04/12/25 18:30 04/18/25 10:07 2 MG Diagnostic Test (Pha) 1 strip Q6HR 04/13/25 00:00 04/18/25 05:33 1 STRIP Insulin Human Regular Q6HR SC 04/13/25 00:00 04/18/25 00:31 8 UNITS Dextrose 50 ml UD PRN IV 04/12/25 18:30 Dextrose/Sodium Chloride 1,000 ml @ 75 mls/hr [id number] IV 04/13/25 11:00 04/17/25 22:07 75 MLS/HR Acetaminophen/ Hydrocodone Bitart 1 tab Q4HPRN PRN PO 04/14/25 09:00 04/17/25 22:40 1 TAB Acetaminophen 650 mg Q6HP PRN PO 04/14/25 09:00 Docusate Sodium 100 mg BID PO 04/14/25 10:00 04/17/25 11:26 100 MG Dicyclomine HCl 20 mg BID PRN PO 04/15/25 15:45 Sucralfate 1 gm BID GT 04/15/25 22:00 04/17/25 22:13 1 GM Pantoprazole Sodium 40 mg BID IV 04/16/25 10:00 04/18/25 09:26 40 MG Lactulose 30 ml BID PO 04/16/25 22:00 04/17/25 22:13 30 ML Metoclopramide HCl 5 mg Q8HR IV 04/16/25 22:00 04/18/25 05:40 5 MG Amlodipine Besylate 5 mg DAILY PO 04/17/25 13:34 04/17/25 13:34 5 MG Examination General: Patient alert and oriented in person, place and time. Patient following commands. HEENT: Normocephalic, atraumatic, moist mucous membranes Respiratory/pulmonary: Clear lungs bilaterally, vesicular murmurs present in almost all lung johnson, no associated crackles or wheezes. Cardiovascular: Normal heart sounds S1 and S2 with no associated murmurs Abdomen: Bowel sounds present, tenderness in the epigastric region and lower abdomen on mild palpation. No guarding, rigidity, no palpable masses. Extremities: There is no peripheral edema present at the lower extremities. Peripheral Pulses: 3+ Radial (R). 3+ Radial (L). 3+ Dorsalis pedis (R). 3+ Dorsalis pedis(L) Skin: No rashes or pruritus, there is no sacral edema present at this time. Neurological: Intact cranial nerves with no focal neurologic deficits laboratory and microbiology Laboratory Tests 04/18/25 06:25 Test 04/18/25 06:25 Range/Units Serum Glucose 134 H 74-106 mg/dL Microbiology Date/Time Source Procedure Growth Status 04/12/25 21:00 Nose MRSA Screen - Final Complete 04/12/25 15:00 Blood Blood Culture - Final NO GROWTH AFTER 5 DAYS OF INCUBATION. Complete Labs and/or images reviewed: Labs reviewed by me, Image(s) reviewed by me Problem List/Assessment/Plan Problem List/Assessment/Plan #Sepsis due to acute gastroenteritis, infection possible #Rule out SBO #Possible cyclic vomiting syndrome/ Cannibis hyperemesis syndrome #Lactic acidosis, resolved #Gastritis, possible #Intractable abdominal pain, nausea, vomiting due to above -EGD done 4 months ago showed mild gastritis. -Tachycardia -Blood culture negative -Continue on IV fluids -Continue IV ceftriaxone and metronidazole -Continue Bentyl p.r.n. for abdominal cramps -Switch to Carafate b.i.d. -Zofran switched to metoclopramide 5 mg IV Q 8 ADINA -Lactulose 30 mL b.i.d. -X-ray small bowel series done today (04/16/25) Initial junior estimator view of the abdomen and pelvis appears demonstrates no acute process. -GI consulted, EGD 04/18/25 showed: #Rule out mesenteric ischemia #Mesenteric adenitis, possible -CT abdomen revealed mildly prominent right lower quadrant mesenteric nodes. Correlate for mesenteric adenitis. -CT w/ IV and oral contrast revealed colonic diverticular disease, hepatic steatosis, atherosclerotic disease and no SBO. #Normocytic normochromic anemia, rule out bleeding -Hemoglobin down from 16 0.3-12.8 today -Stool occult blood Negative #Insulin-dependent diabetes mellitus #Gastroparesis, possible -Continue on sliding scale insulin -Hb A1c 9.3 #Diverticulosis, diverticulitis ruled out -CT shows diverticulosis without diverticulitis -GI Consult #Hyperlipidemia -Increased LDL, low HDL #Hypernatremia -Labs show sodium 146 -Continue monitoring electrolytes #Pancreatitis, ruled out -Ordered lipase: Lipase 24 #Hypokalemia -Repleted -Magnesium levels normal GI prophylaxis: Protonix 40 mg IV daily DVT prophylaxis: ambulating Diet: clear liquid diet Goals of care discussed with the patient for more than 27 minutes: Full code status Case discussed with Dr. Viramontes patient and nurse. Plan discussed with: Patient, Other (rn) Dietary Evaluation Review Recommendations by RD: Dietary education by RD Comments: 1) Encourage optimal PO intake 2) Advance to 60g CCHO cardiac diet when medically feasible 3) Advise patient to limit intake of added sugars including sugar-sweetened beverages, candy, desserts, etc. 4) Refer to outpatient RD/[facility] for diabetes education 5) Follow-up with gastroenterology and nephrology 6) Continue to monitor I&O, labs, and skin integrity Expected Outcomes/Goals: 1) appetite and labs to improve 2) GI symptoms to resolve 3) diet to advance 4) f/u in 3-5 days MIGUEL CARABALLO RESIDENT Apr 18, 2025 11:25
[2025-04-18] MEDS ORDERED: PROPOFOL 10 MG/ML 20 ML IV ONE ×2 (13:25→13:42)
[2025-04-18] MEDS ORDERED: LIDOCAINE 2% (LOCAL ANESTH.) PF 5ml SDV ONE (13:26)
--- NOTE | 2025-04-18 13:47 | DVHOP2 ---
Operative Report DATE OF OPERATION: 04/18/25 PROCEDURE: Upper Endoscopy with biopsy. PREOPERATIVE INDICATION: The patient is a 44 -year-old male undergoing endoscopy for recurrent nausea vomiting and abdominal pain POSTOPERATIVE DIAGNOSES: 1. 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 Minimal antral gastritis otherwise normal examination up to the 2nd and 3rd part of the duodenal with good bile drainage and no active bleeding PROCEDURE PERFORMED BY: Angel Dasilva GI NURSE: Kyle SCOPE: Olympus videoendoscope. ASA CLASS: 3. PREOPERATIVE MEDICATIONS: Mac sedation, Willian Parra PROCEDURE IN DETAIL: After obtaining an informed consent, the patient was placed on left lateral decubitus position. The patient was then sedated with the above medications. A bite block was placed between his teeth. The endoscope was then passed through the oropharynx, into the esophagus, and through the stomach and pylorus up to the second and third part of the duodenum. The endoscope was then withdrawn. 2nd and 3rd part of the duodenum and the duodenal bulb were normal. There was good bile drainage. Duodenal biopsies were obtained Pre-pyloric area antrum and body fundus and cardia and angularis were essentia lly normal. There was minimal antral gastritis. Gastric biopsies were obtained On retroflexion the fundus and cardia were normal. The endoscope was then withdrawn into distal esophagus Patient had a 5 mm extension of columnar epithelium into distal esophagus with no significant erosive esophagitis no ulcers or inflammatory changes seen The remaining distal and proximal esophagus and oropharynx were unremarkable The patient tolerated the procedure well without difficulty. COMPLICATIONS : None SPECIMENS: Duodenal biopsies Gastric biopsies DISPOSITION: Transfer back to the floor Stable PLAN: 1. Await for biopsy result 2. Will place pt on Protonix 40 mg p.o. daily 3. Resume GI soft diet advance as tolerated 4. Outpatient follow up with tx for elective colonoscopy for colon cancer screening ANGEL DASILVA MD Apr 18, 2025 13:47
[2025-04-18 13:49] LABS: INR 1.11 (0.9-1.15); Partial Thromboplastin Time 26.7 SEC (24.5-34.5); Prothrombin Time 11.6 sec (9.3-11.8)
[2025-04-18] MEDS ORDERED: PANT40T PO (17:23)
[2025-04-18] MEDS ORDERED: METO10TA4 PO (17:23)
--- NOTE | 2025-04-18 17:43 | DVHDSRES ---
Discharge Summary Date of Admission Resident Creating Document: MIGUEL CARABALLO RESIDENT Apr 12, 2025 at 18:23 Date of Discharge: Apr 18, 2025 Admitting Diagnosis #Sepsis due to acute gastroenteritis, infection possible Labs/Diagnostic Data: Laboratory Results Test 04/18/25 13:54 04/18/25 13:13 04/18/25 06:25 04/17/25 06:45 POC Glucose 162 mg/dl (70-106) Prothrombin Time 11.6 sec (9.3-11.8) Prothrombin Time INR 1.11 (0.9-1.15) Activated Partial Thromboplast Time 26.7 SEC (24.5-34.5) Potassium Level 2.7 mmol/L (3.5-5.1) White Blood Count 6.9 10^3/uL (4.4-10.8) Red Blood Count 4.49 10^6/uL (4.5-5.90) Hemoglobin 13.0 g/dL (13.5-17.5) Hematocrit 37.2 % (41.0-53.0) Mean Corpuscular Volume 82.8 fL (80.0-100.0) Mean Corpuscular Hemoglobin 29.0 pg (28.0-32.0) Mean Corpuscular Hemoglobin Concent 35.0 g/dL (32.0-36.0) Red Cell Distribution Width 13.1 % (11.8-14.3) Platelet Count 406 10^3/uL (140-450) Mean Platelet Volume 6.5 fL (6.9-10.8) Neutrophils (%) (Auto) 67.3 % (37.0-80.0) Lymphocytes (%) (Auto) 22.3 % (10.0-50.0) Monocytes (%) (Auto) 9.3 % (0.0-12.0) Eosinophils (%) (Auto) 0.6 % (0.0-7.0) Basophils (%) (Auto) 0.5 % (0.0-2.0) Neutrophils # (Auto) 4.7 10 ^3/uL (1.6-8.6) Lymphocytes # (Auto) 1.5 10 ^3/uL (0.4-5.4) Monocytes # (Auto) 0.6 10 ^3/uL (0-1.3) Eosinophils # (Auto) 0 10 ^3/uL (0-0.8) Basophils # (Auto) 0 10 ^3/uL (0-0.2) Nucleated Red Blood Cells 0.1 % Sodium Level 138 mmol/L (136-145) Chloride Level 98 mmol/L (98-107) Carbon Dioxide Level 29 mmol/L (20-31) Anion Gap 11 (5-15) Blood Urea Nitrogen 5 mg/dL (9-23) Creatinine 0.87 mg/dL (0.700-1.30) Glomerular Filtration Rate Calc 108 mL/min (>90) BUN/Creatinine Ratio 5.7 (10.0-20.0) Serum Glucose 134 mg/dL (74-106) Calcium Level 9.2 mg/dL (8.7-10.4) Total Bilirubin 0.5 mg/dL (0.2-1.0) Aspartate Amino Transferase (AST) 27 U/L (13-40) Alanine Aminotransferase (ALT) 23 U/L (7-40) Alkaline Phosphatase 67 U/L (46-116) Total Protein 6.2 g/dL (5.7-8.2) Albumin 4.0 g/dL (3.2-4.8) Stool Occult Blood Negative (Negative) Stool Occult Blood Sample #3 (Negative) Test 04/16/25 05:52 04/15/25 16:22 04/13/25 07:06 04/12/25 14:30 Magnesium Level 2.0 mg/dL (1.6-2.6) Lactic Acid Level 1.2 mmol/L (0.4-2.0) Erythrocyte Sedimentation Rate 13 mm/hr (0-20) Hemoglobin A1c 9.3 % A1C (<5.7) C-Reactive Protein High Sensitivity 1.22 mg/dL (<1.0) Triglycerides Level 117 mg/dL (< 150) Cholesterol Level 172 mg/dL (< 200) LDL Cholesterol 123 mg/dL (< 100) HDL Cholesterol 39 mg/dL (40-59) Lipase 24 U/L (12-53) Urine Color Light-yellow (Yellow) Urine Clarity Clear (Clear) Urine pH 6.0 (5.0-9.0) Urine Specific [place] 1.015 (1.001-1.035) Urine Protein Negative (Negative) Urine Ketones 1+ (Negative) Urine Blood Negative /uL (Negative) Urine Nitrite Negative (Negative) Urine Bilirubin Negative (Negative) Urine Urobilinogen Normal mg/dL (Negative) Urine Leukocyte Esterase Negative /uL (Negative) Urine RBC 1 /hpf (0 - 3) Urine Microscopic WBC 5 /HPF (0-3) Urine Squamous Epithelial Cells Few /hpf (<5) Urine Bacteria None seen /hpf (None Seen) Urine Hyaline Casts Few /lpf (0 - 2) Urine Sperm Present /hpf (None Seen) Urine Glucose 4+ mg/dL (Normal) Test 04/12/25 14:25 Beta-Hydroxybutyric Acid 0.235 mmol/L (< 0.4) Other Laboratory Tests 04/18/25 13:13 04/18/25 06:25 Brief Hx & Hospital Course: Eliu Nj is a 44-year-old male has past medical history of insulin- dependent diabetes mellitus, dyslipidemia. he presented to the ER with chief complaint of intractable abdominal pain, causing nausea and vomiting. he complains of abdominal pain starting 2 years ago, has been on and off. He complains of worsening pain since last 1 week. Since last 2 days, he started complaining of abdominal pain which caused him to vomit. The pain is 10 on 10, sharp, cramp like. Associated with nausea, vomiting with chills. Vomitus is yellow, bile like liquid in consistency. he also complains of associated constipation. He saw blood on stools after straining. Denied fever, headache, chest pain, shortness of breath, diarrhea. He had not traveled recently. Reported undergoing EGD 4 months ago, which showed no upper GI abnormality. Upon admission, he had tachycardia, labs showed elevated neutrophils, WBCs, platelet, lactic acid. Urine analysis showed ketones, glucose. After admission, he was started on IV fluids, IV ceftriaxone, metronidazole, Zofran. Brief history of hospitalization: Patient came in due to sepsis from acute gastritis, infection, possible cyclic vomiting syndrome / cannabis hyperemesis syndrome and lactic acidosis. lactic acidosis was resolved. Patient might have Gastritis causing intractable abdominal pain, nausea vomiting due to above. He also had tachycardia. we did blood cultures which came out negative. We started him on IV fluids and gave him ceftriaxone and metronidazole intravenously. We continued Bentyl p.r.n. for abdominal cramps. We gave Carafate b.i.d. and Zofran which was later switched to metoclopramide 5 mg IV Q 8. X-ray small bowel series was also done which demonstrated no acute process and we ruled out SBO. We gave the patient lactulose 30 mL b.i.d. and GI was consulted. An EGD was scheduled on 04/18/2025 which showed minimal antral gastritis. duodenal and gastric biopsies have been taken and we are awaiting biopsy results. Patient was placed on Protonix 40 mg per oral daily and GI suggested soft diet and advance as tolerated which has been counseled to the patient. We have also counseled the patient regarding outpatient follow up with Dr. Dasilva for elective colonoscopy for colon cancer screening. We have ruled out mesenteric ischemia, mesenteric adenitis possible. CT abdomen revealed mildly prominent right lower quadrant mesenteric nodes. Correlate for mesenteric adenitis. CT w/ IV and oral contrast revealed colonic diverticular disease, hepatic steatosis, atherosclerotic disease and no SBO. For patient's insulin-dependent diabetes mellitus with Hb A1c 9.3 who started him on a sliding scale insulin. CT also showed diverticulosis without diverticulitis. patient had hypernatremia and we continued monitoring electrolytes. For pancreatitis that we have ruled out lipase was 24. For patient's hypokalemia we repleted potassium levels and magnesium levels were normal. Patient is now stable for discharge. We have counseled him to be on a full liquid diet for 1 week and to advance diet as tolerated. We are giving him discharge med metoclopramide and we have counseled him regarding his cessation of marijuana and counseled him regarding the side effects of it. General: Patient alert and oriented in person, place and time. Patient following commands. HEENT: Normocephalic, atraumatic, moist mucous membranes Respiratory/pulmonary: Clear lungs bilaterally, vesicular murmurs present in almost all lung johnson, no associated crackles or wheezes. Cardiovascular: Normal heart sounds S1 and S2 with no associated murmurs Abdomen: Bowel sounds present, tenderness in the epigastric region and lower abdomen on mild palpation. No guarding, rigidity, no palpable masses. Extremities: There is no peripheral edema present at the lower extremities. Peripheral Pulses: 3+ Radial (R). 3+ Radial (L). 3+ Dorsalis pedis (R). 3+ Dorsalis pedis(L) Skin: No rashes or pruritus, there is no sacral edema present at this time. Neurological: Intact cranial nerves with no focal neurologic deficits instructions: -Continue liquid diet for a week and progress as tolerated -Follow up outpatient for biopsy reports in 1-[address] Dasilva and elective colonoscopy for colon cancer screening -cessation of marijuana use Operations or Procedures Exam: CT CT AB PEL WO CON-NO ORAL OR IV Impression: 1. No acute abdominopelvic abnormalities. 2. Diverticulosis without evidence of acute diverticulitis. 3. Mildly prominent right lower quadrant mesenteric nodes. Correlate for mesenteric adenitis. PROCEDURE(s): ABPLC - CT ABD PELVIS W CON-ORAL & IV IMPRESSION: Moderate volume stool within the colon. No evidence for high-grade bowel obstruction. The oral contrast reaches the distal transverse/ splenic flexure of the colon. Colonic diverticular disease. Hepatic steatosis. Atherosclerotic disease. Other findings as described Procedure: XY SMALL BOWEL SERIES-W GASTROGRA Reason for study/Clinical History: Evaluate sbo Comparison Study: None Technique: Single contrast small bowel series performed. 100 mL of Gastrografin were given by mouth and serial filming was obtained FINDINGS/IMPRESSION: Initial cleater view of the abdomen and pelvis appears demonstrates no acute process. Contrast is identified within the colon by 30 minute delayed. This represents a normal small bowel transit time. Condition at Discharge: Stable Final Diagnosis/Problems List #Sepsis due to acute gastroenteritis, infection possible #Rule out SBO #Possible cyclic vomiting syndrome/ Cannibis hyperemesis syndrome #Lactic acidosis, resolved #Gastritis, possible #Intractable abdominal pain, nausea, vomiting due to above #Rule out mesenteric ischemia #Mesenteric adenitis, possible #Normocytic normochromic anemia, rule out bleeding #Insulin-dependent diabetes mellitus #Gastroparesis, possible #Diverticulosis, diverticulitis ruled out #Hyperlipidemia #Hypernatremia #Pancreatitis, ruled out #Hypokalemia Discharge Disposition: Home Discharge Instruct/Medications Diet: See Comment Diet comment: Full liquid diet for 7 days, advance slowly to soft diet as tolerated Activity: Light activity Follow Up/Referral: Follow up with GI for further management and biopsy results within 2 weeks Follow up with PCP within 7 days Follow up with the discharge clinic within 7 days Medications: Continue Protonix 40 mg daily Continue metoclopramide 5 mg twice daily for the next 10 days Resume home medications Scheduled Alum & Mag Hydrox-Simethicone (Gi Cocktail), 55 ML PO BID Alum & Mag Hydrox-Simethicone (Gi Cocktail), 55 ML PO TID Amlodipine Besylate (Norvasc Tablet), 5 MG PO DAILY Ergocalciferol (Vitamin D 42972 Unit), 50,000 UNIT PO QWEEKLY Insulin Glargine (Lantus), 80 UNIT SC HS Metoclopramide HCl (Metoclopramide Hydrochlor), 10 MG PO BID Mupirocin (Pseudomonas Fluores (Mupirocin), 2 % EX BID Pantoprazole Sodium Sesquihydr (Pantoprazole Sodium), 40 MG PO DAILY Sucralfate (Carafate Susp), 1 GM PO BID@0600,2200 Scheduled PRN Acetaminophen (Acetaminophen), 650 MG PO Q6HP PRN Miscellaneous Medications Pramipexole Dihydrochloride (Mirapex Er), 3.75 MG PO, (Reported) Discontinued Medications Metoclopramide Hcl (Reglan), 5 MG PO DAILY PRN Durable Medical Equipment Blood Glucose Monitoring Suppl (RoamzTOUCH VERIO REFLECT w/Device), KIT XX TIDWM PRN, (DME) Discharge Statement: "Patient was advised to return to the ER or call 911 if any headaches, dizziness, shortness of breath, chest pain, abdominal pain, bleeding, fevers, or worsening of medical condition. Patient was counseled about treatment plan, medications, possible side effects, patientverbalized understanding. All questions were answered to the best of my ability. This discharge took greater then 30 minutes in planning, reviewing documentation, counseling the patient, and discussing with other team members." ASSESSMENT ASSESSMENT Assessment Intractable nausea and vomiting Gastroenteritis likely etiology infectious Likely gastritis Date of Service: Apr 18, 2025 Billing Provider: RAFAEL VARGHESE MD Common Visit Codes: 31927-YQV/OBS DISCH DAY >30min MIGUEL CARABALLO RESIDENT Apr 18, 2025 17:43 RAFAEL VARGHESE MD Apr 18, 2025 22:05
== END 2025-04-18 20:20 | disposition home or self-care (01) | DRG 720 ==
LOC: EDBD 14:04 → ER 14:04 → OVERFLOW 18:23 → EAST 22:41
PROVIDERS: ADMIT Student in an Organized Health Care Education/Training Program; ATTEND Student in an Organized Health Care Education/Training Program
PROC: 0DB68ZX Excision of Stomach, Via Natural or Artificial Opening Endoscopic, Diagnostic (ICD-10-PCS; 2025-04-18)
PROC: 0DB98ZX Excision of Duodenum, Via Natural or Artificial Opening Endoscopic, Diagnostic (ICD-10-PCS; principal; 2025-04-18 13:36)
DX: A41.9 Sepsis, unspecified organism (principal); N17.0 Acute kidney failure with tubular necrosis; E87.0 Hyperosmolality and hypernatremia; E11.43 Type 2 diabetes mellitus with diabetic autonomic (poly)neuropathy; K29.71 Gastritis, unspecified, with bleeding; E87.20 Acidosis, unspecified; K31.84 Gastroparesis; D64.9 Anemia, unspecified; I88.0 Nonspecific mesenteric lymphadenitis; A09 Infectious gastroenteritis and colitis, unspecified; E78.5 Hyperlipidemia, unspecified; K76.0 Fatty (change of) liver, not elsewhere classified; K57.30 Diverticulosis of large intestine without perforation or abscess without bleeding; G89.29 Other chronic pain; E87.6 Hypokalemia; Z79.899 Other long term (current) drug therapy; Z82.0 Family history of epilepsy and other diseases of the nervous system; Z80.1 Family history of malignant neoplasm of trachea, bronchus and lung; Z83.3 Family history of diabetes mellitus; Z79.4 Long term (current) use of insulin
CPT/HCPCS: 36415; 43239; 74176; 74177; 74250; 80048; 80053; 80061; 81001; 82010; 82270; 82962; 83036; 83605; 83690; 83735; 84132; 85025; 85610; 85652; 85730; 86141; 86850; 86900; 86901; 87040; 87081; 96374; 99291; 99292; G0378; J1815; J1885; J2003; J2405; J2470; J2543; J2704; J3480; J3490

== ENCOUNTER 2025-04-26 20:56 | Inpatient (IN) | payer MEDICAID ==
[~2025-04-26] VITALS: Ht 167.6 cm; Wt 63.0 kg
[~2025-04-26 20:56] MED LIST changes: -AUG875T PO; +METO10TA4 PO; -METO5TAB67 PO; +PRAM3.75 PO
[2025-04-26 21:34] LABS: Hematocrit 44.7 % (41.0-53.0); Hemoglobin 15.1 g/dL (13.5-17.5); Mean Corpuscular Hemoglobin 29.0 pg (28.0-32.0); Mean Corpuscular Volume 85.9 fL (80.0-100.0); Nucleated Red Blood Cells % 0.1 %
--- NOTE | 2025-04-26 21:48 | ED.PDOC ---
GI ASSESSMENT HPI Comments 44-year-old male who came to ER via EMS for nausea and vomiting. Patient has a history of type 1 diabetes, admitted here multiple times for diabetic ketoacidosis. Was discharged here a week ago, for sepsis secondary to acute gastroenteritis and uncontrolled hyperglycemia. For the past 2 days patient has been having epigastric abdominal pain, associated with multiple bouts of nausea and vomiting. Patient admits that he sometimes forgets to take his insulin. Blood sugar upon arrival was 385 REVIEW OF SYSTEMS: General: No fever, no chills, or fatigue HEENT: No sore throat, no earache, no congestion, no neck pain. Cardiac: No chest pain. No palpitations. Lungs: No shortness of breath, no cough. GI: (+) nausea, (+) vomiting, no diarrhea, no constipation, (+) abdominal pain : No dysuria, frequency, or urgency. No hematuria. Musculoskeletal: No joint pain , no joint swelling, no extremity edema. Skin: No rash, no itching. Neuro: No headache, no dizziness, no weakness PHYSICAL EXAM: General: Awake, alert and oriented. No acute distress. Skin: Skin in warm, dry and intact. Appropriate color for ethnicity. HEENT: The head is normocephalic and atraumatic. Conjunctivae are clear without exudates or hemorrhage. Sclera is non-icteric. EOM are intact. No signs of nystagmus. Eyelids are normal in appearance without swelling or lesions. Oral mucosa is pink and moist Neck: The neck is supple with normal range of motion. No JVD. Cardiac: Heart rate and rhythm are normal. No murmurs, gallops, or rubs are auscultated. Respiratory: No signs of respiratory distress. Lung sounds are clear in all lobes bilaterally without rales, rhonchi, or wheezes. Abdominal: Abdomen is soft, non-tender without distention, guarding or rigidity. Bowel sounds are present and normoactive in all four quadrants. Extremities: Upper and lower extremities are atraumatic in appearance without deformity or edema. Neurological: The patient is awake, alert and oriented to person, place, and time with normal speech. Speech is clear. There is no facial asymmetry. Psychiatric: Appropriate mood and affect. Good judgement and insight. Chief Complaint: Nausea/Vomiting Time Seen by MD: 21:43 Primary Care Provider: UNKNOWN Reviewed Notes: [employer] Notes Allergies: Coded Allergies: NO KNOWN ALLERGIES (Unverified , 09/21/20) Home Meds Active Scripts Metoclopramide HCl (Metoclopramide Hydrochlor) 10 Mg Tab, 10 MG PO BID for 10 Days, #20 TAB 0 Refills Prov:THOMAS ADAMS RESIDENT 04/18/25 Pantoprazole Sodium Sesquihydr (Pantoprazole Sodium) 40 Mg Tab, 40 MG PO DAILY for 30 Days, #30 TAB 0 Refills Prov:THOMAS ADAMS RESIDENT 04/18/25 Mupirocin (Pseudomonas Fluores (Mupirocin) 2 % Oin, 2 % EX BID for 30 Days, #1 OIN Prov:JOSÉ LUIS VAUGHAN MD 03/21/25 Blood Glucose Monitoring Suppl (SolxUCH VERIO REFLECT w/Device) 1 Kit Kit, KIT XX TIDWM PRN, #1 Prov:JOSÉ LUIS VAUGHAN MD 03/21/25 Amlodipine Besylate (NORVASC TABLET) 5 Mg Tb, 5 MG PO DAILY for 30 Days, #30 TAB 5 Refills Prov:LORRAINE ACEVEDO MD 01/23/25 Sucralfate (CARAFATE SUSP) 1 Gm/10 Ml Ss, 1 GM PO BID@0600,2200 for 14 Days, #10 ML 5 Refills Prov:LORRAINE ACEVEDO MD 01/23/25 Insulin Glargine (Lantus) 100 Unit/Ml Inj, 80 UNIT SC HS for 96 Days, #10 ML 5 Refills Prov:LORRAINE ACEVEDO MD 01/23/25 Alum & Mag Hydrox-Simethicone (Gi Cocktail) 55 Ml Ss, 55 ML PO TID for 30 Days, #1 ML Prov:COREEN BULLARD 01/03/25 Alum & Mag Hydrox-Simethicone (Gi Cocktail) 55 Ml Ss, 55 ML PO BID for 10 Days, #1 ML Prov:COREEN BULLARD 01/02/25 Ergocalciferol (VITAMIN D 65256 UNIT) 50,000 [place], [address] UNIT PO QWEEKLY for 30 Days, #4 CAP Prov:COREEN BULLARD 11/28/24 Acetaminophen (Acetaminophen) 325 Mg Tab, 650 MG PO Q6HP PRN for 30 Days, #240 TAB Prov:COREEN BULLARD 11/28/24 Reported Medications Pramipexole Dihydrochloride (MIRAPEX ER) 3.75 Mg Tab, 3.75 MG PO, TAB 04/12/25 Information Source: Patient, Emergency Med Personnel Mode of Arrival: EMS Timing: Days Duration: Since onset Quality: Cramping Vomitus: Watery Stool: Normal Recent Hx of: Diabetes Pain Location: Epigastric Associated sign and symptoms: Nausea, Vomiting, Abdominal Pain Past Medical History PAST MEDICAL HISTORY: DM Past Medical History (Other): Type 1 diabetes Family History Family History: Reviewed,noncontributory to illness Social History Smoker: Non-Smoker Alcohol: Denies ETOH Use Drugs: Marijuana Lives In: Home Was a procedure done? Was a procedure done?: No GI differential Dx Differential Diagnosis: Gastritis/PUD, Gastroenteritis, Pancreatitis, D ehydration, Diabetes/ DKA X-Ray, Labs, Meds, VS Vital Signs Date Time Temp Pulse Resp B/P (MAP) Pulse Ox O2 Delivery O2 Flow Rate FiO2 04/27/25 01:34 92 20 162/98 04/27/25 01:33 98.1 96 20 162/98 (119) 98 98.1 04/26/25 22:07 103 16 98 Room Air* 0 21 04/26/25 22:07 103 16 154/90 (111) 98 04/26/25 22:05 103 16 154/90 04/26/25 20:56 98.7 104 25 176/90 99 98.7 Lab Test 04/27/25 00:36 04/26/25 22:13 04/26/25 21:20 Range/Units POC Glucose 322 H 70-106 mg/dl Blood Gas Specimen Type Arterial Blood Gas Sample Site Right brachial Blood Gas Patient Temperature 37.0 Arterial Blood Date Drawn [id number] Arterial Blood pH 7.410 7.350-7.450 Arterial Blood Partial Pressure CO2 35.9 35.0-48.0 mmHg Arterial Blood Partial Pressure O2 71.6 L 83.0-108.0 mmHg Arterial Blood HCO3 22.2 21.0-28.0 mmol/L Arterial Blood Oxygen Saturation 92.7 L 94.0-98.0 % Arterial Blood Base Excess -1.8 -2.0-3.0 mmol/L Arterial Blood Oxyhemoglobin 90.8 L 94.0-98.0 % Arterial Blood Carboxyhemoglobin 1.4 0.5-1.5 % Arterial Blood Methemoglobin 0.6 0.0-1.5 % Umer Test N/a Blood Gas Total Hemoglobin 14.90 13.5-17.5 g/dL Blood Gas Modality Room air Blood Gas Spontaneous Rate 18 FiO2 % 21.0 White Blood Count 10.1 4.4-10.8 10^3/uL Red Blood Count 5.21 4.5-5.90 10^6/uL Hemoglobin 15.1 13.5-17.5 g/dL Hematocrit 44.7 41.0-53.0 % Mean Corpuscular Volume 85.9 80.0-100.0 fL Mean Corpuscular Hemoglobin 29.0 28.0-32.0 pg Mean Corpuscular Hemoglobin Concent 33.7 32.0-36.0 g/dL Red Cell Distribution Width 13.6 11.8-14.3 % Platelet Count 418 140-450 10^3/uL Mean Platelet Volume 7.3 6.9-10.8 fL Neutrophils (%) (Auto) 78.4 37.0-80.0 % Lymphocytes (%) (Auto) 12.5 10.0-50.0 % Monocytes (%) (Auto) 8.4 0.0-12.0 % Eosinophils (%) (Auto) 0.2 0.0-7.0 % Basophils (%) (Auto) 0.5 0.0-2.0 % Neutrophils # (Auto) 7.9 1.6-8.6 10 ^3/uL Lymphocytes # (Auto) 1.3 0.4-5.4 10 ^3/uL Monocytes # (Auto) 0.8 0-1.3 10 ^3/uL Eosinophils # (Auto) 0 0-0.8 10 ^3/uL Basophils # (Auto) 0.1 0-0.2 10 ^3/uL Nucleated Red Blood Cells 0.1 % Sodium Level 129 L 136-145 mmol/L Potassium Level 4.2 3.5-5.1 mmol/L Chloride Level 93 L 98-107 mmol/L Carbon Dioxide Level 24 20-31 mmol/L Anion Gap 12 5-15 Blood Urea Nitrogen 25 H 9-23 mg/dL Creatinine 2.38 H 0.700-1.30 mg/dL Glomerular Filtration Rate Calc 33 >90 mL/min BUN/Creatinine Ratio 10.5 10.0-20.0 Serum Glucose 361 H 74-106 mg/dL Calcium Level 9.2 8.7-10.4 mg/dL Magnesium Level 2.5 1.6-2.6 mg/dL Total Bilirubin 1.1 H 0.2-1.0 mg/dL Aspartate Amino Transferase (AST) 15 13-40 U/L Alanine Aminotransferase (ALT) 19 7-40 U/L Alkaline Phosphatase 99 46-116 U/L Total Protein 7.8 5.7-8.2 g/dL Albumin 4.8 3.2-4.8 g/dL Lipase 32 12-53 U/L Beta-Hydroxybutyric Acid 0.561 H < 0.4 mmol/L Time of 1ST Reevaluation: 21:47 Reevaluation 1ST: Unchanged Patient Education/Counseling: Need For Follow Up Family Education/Counseling: No Family Present SEPSIS Sepsis Screen Date sepsis recognized/suspect: Apr 26, 2025 Time Sepsis recognized/suspect: 2055 Recent Procedure: No On Antibiotic Therapy: No Respiratory Rate >20: No Heart Rate >90: Yes Temp<36 C (96.8 F) or >38.3 C: No SBP <90 or MAP <65 mmHG: No New Acute Mental Status Change: No Is the patient on CPAP, BIPAP,: No Physician Orders Abg W/ Co-Ox (04/26/25 21:27) Vital Signs Date Time Temp Pulse Resp B/P (MAP) Pulse Ox O2 Delivery O2 Flow Rate FiO2 04/27/25 01:34 92 20 162/98 04/27/25 01:33 98.1 96 20 162/98 (119) 98 98.1 04/26/25 22:07 103 16 98 Room Air* 0 21 04/26/25 22:07 103 16 154/90 (111) 98 04/26/25 22:05 103 16 154/90 04/26/25 20:56 98.7 104 25 176/90 99 98.7 Laboratory Tests Test 04/26/25 21:20 White Blood Count 10.1 10^3/uL (4.4-10.8) Departure 1 Departure Time of Disposition: 22:14 Impression: Primary Impression: Hyperglycemia Additional Impression: Acute kidney injury Disposition: ADMITTED INPATIENT Condition: Stable Comments MDM: 44-year-old male with a history of type 1 diabetes presents to the emergency department with nausea, vomiting, abdominal pain. Initial evaluation included thorough history, physical examination and appropriate diagnostic testing. Based on the clinical presentation and diagnostic findings, the patient appears to have hyperglycemia without DKA and acute kidney injury. Given the complexity of the case and need for further management patient is being admitted to the hospitalist service for further monitoring, treatment and evaluation. Risks, benefits and alternatives of admission and proposed interventions were discussed with the patient. Patient is in agreement with the plan. Extensive evaluation was performed in attempt to identify or rule out: (See differential diagnosis section) The following tests were ordered, and results were reviewed by me and discussed with patient: (See diagnostic results section) The following test were independently interpreted by me: N/A I reviewed and agreed with the following test results read by other providers: N/A I reviewed the following notes from the pt's past medical encounters: March 2024 for uncontrolled diabetes Additional information was gathered from interviewing the following independent historians: EMS personnel Discussion of management or test interpretation with external physician/other qualified health complex care nurse practitioner: N/A Addressed one or more chronic illnesses with severe exacerbation, progression, or side effects of treatment: Type 1 diabetes, an acute or chronic illness that poses a threat to life or bodily function: RYNE, Decision regarding hospitalization or escalation of hospital level of care: Risk and benefits of admission for further treatment of patient's condition was considered. Due to patient's current clinical condition, high risk of decline and poor outcome if discharged and need for further inpatient management and monitoring, patient will be admitted to the hospital. Drug therapy requiring intensive monitoring for toxicity: IV insulin Parenteral controlled substances: IV morphine Decision regarding elective major surgery with identified patient or procedure risk factors: N/A Decision regarding emergency major surgery: N/A Decision not to resuscitate or to de-escalate care because of poor prognosis: N/A Diagnosis or treatment significantly limited by social determinants of health: N/A Critical Care Note Critical Care Time?: Yes (35 min-critical care time only) Critical care comment: Hyperglycemia Stability Stability form required: No Heart Score Heart Score: Heart Score Response (Comments) Value History N/A 0 EKG N/A 0 Age N/A 0 Risk Factors N/A 0 Troponin N/A 0 Total 0 I personally scribed for SURAJ DELCID MD ([email or web address]) on 04/26/25 at 21:48. Electronically submitted by Xander Lam ([facility]). SURAJ DELCID MD Apr 26, 2025 21:48
[2025-04-26 21:49] LABS: Alanine Aminotransferase 19 U/L (7-40); Albumin 4.8 g/dL (3.2-4.8); Alkaline Phosphatase 99 U/L (46-116); Anion Gap 12 (5-15); BUN/Creatinine Ratio 10.5 (10.0-20.0); Bilirubin, Total 1.1 mg/dL (0.2-1.0); Calcium 9.2 mg/dL (8.7-10.4); Carbon Dioxide 24 mmol/L (20-31); Lipase 32 U/L (12-53); Magnesium 2.5 mg/dL (1.6-2.6); Potassium 4.2 mmol/L (3.5-5.1); Total Protein 7.8 g/dL (5.7-8.2)
[2025-04-26 21:56] LABS: Blood Urea Nitrogen 25 mg/dL (9-23); Chloride 93 mmol/L (98-107); Glucose 361 mg/dL (74-106); Sodium 129 mmol/L (136-145)
[2025-04-26] MEDS: MORPHINE SULFATE INJ 2 MG/ml SYRG IV ONE (22:05)
[2025-04-26] MEDS: ONDANSETRON HCL 4 MG/2 ML VIAL IV ONE (22:06)
[2025-04-26] MEDS: SODIUM CHLORIDE 0.9% 1,000 ML IV ONE (22:06)
[2025-04-26 22:07] VITALS: PULSE 103; RESP 16; O2SAT 98
[2025-04-26 22:22] LABS: Base Excess -1.8 mmol/L (-2.0-3.0)
[2025-04-26] MEDS ORDERED: DEXTROSE (50%) 50ML SYRG IV PRN ×2 (22:30)
[2025-04-27] MEDS: ACCU-CHEK COMFORT CURVE STRIP VI ONE (00:26)
[2025-04-27] MEDS: SODIUM CHLORIDE 0.9% 1,000 ML IV ONE ×3 (00:33→09:59)
[2025-04-27] MEDS: ACCU-CHEK COMFORT CURVE STRIP VI STA (00:36)
[2025-04-27] MEDS: InsuLIN REG 1unit/0.01ml Soln (100units/ml) IV ONE (00:44)
[2025-04-27] MEDS: METOCLOPRAMIDE HCL 5MG/ml INJ 2ml VIAL IV ONE (00:44)
[2025-04-27] MEDS: MORPHINE SULFATE INJ 2 MG/ml SYRG IV ONE (01:34)
[2025-04-27] MEDS ORDERED: NITROGLYCERIN 0.4 MG SL TAB SL PRN (05:45)
[2025-04-27] MEDS ORDERED: ENOXAPARIN SOD 40 MG/0.4 ML SYRINGE SC SCH (05:45)
[2025-04-27] MEDS ORDERED: MORPHINE SULFATE INJ 2 MG/ml SYRG IV PRN (05:45)
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
--- NOTE | 2025-04-27 08:45 | DVH ---
EXAM: XY CHEST TWO VIEWS ROUTINE CLINICAL HISTORY: Shortness of breaths COMPARISON: XY CHEST PORTABLE on DOS: 01/01/25, XY CHEST XRAY 1 VIEW on DOS: 11/26/24, XY CHEST PORTABLE on DOS: 09/07/24, XY CHEST PORTABLE on DOS: 09/05/24, XY CHEST TWO VIEWS ROUTINE on DOS: 04/14/24 TECHNIQUE: Frontal and lateral view of the chest was obtained FINDINGS: Lines and Tubes: None Lungs: No focal consolidation. Pleura: No effusion. No pneumothorax. Cardiomediastinal contours: Unremarkable Bones: No acute osseous abnormality. IMPRESSION: No acute cardiopulmonary disease.
[2025-04-27] MEDS: ONDANSETRON HCL 4 MG/2 ML VIAL IV PRN (09:59)
--- NOTE | 2025-04-27 10:53 | DVH ---
CLINICAL INFORMATION: Abdominal pain. TECHNIQUE: Axial CT images of the abdomen and pelvis were obtained without IV contrast. Coronal and s agittal reformatted images were obtained, reviewed, and stored. Evaluation of the parenchymal organs is limited without IV contrast. Evaluation of the bowel and mesentery is limited without oral contras t. All CT scans at this medical facility are performed using dose modulation techniques as appropriat e to a performed exam including the following: Automated exposure control was utilized; adjustment of the MA and/or KV according to patient size; and use of iterative reconstruction technique. CTDIvol = 7.99 mGy DLP = 492.65 mGy-cm COMPARISON: CT CT ABD PELVIS W CON-ORAL IV on DOS: 04/13/25, CT CT AB PEL WO CON-NO ORAL OR IV on DO S: 04/12/25, CT CT AB PEL WO CON-NO ORAL OR IV on DOS: 11/26/24 FINDINGS: Motion artifact and beam hardening artifact limits evaluation. Lung bases: Lung bases are clear. Liver: Grossly unremarkable in its noncontrast enhanced appearance. No abnormal density or focal lesi on identified. Biliary: No calcified gallstones or biliary ductal dilatation. Spleen: Unremarkable. Pancreas: Grossly unremarkable in its noncontrast enhanced appearance. Adrenal glands: Unremarkable. No mass. Kidneys: No hydronephrosis. No renal or ureteral calculi. Aorta/Vascular: Mild atherosclerotic calcification. No abdominal aortic aneurysm. Retroperitoneum: No mass or lymphadenopathy. Bowel/mesentery: No small bowel obstruction. Nonspecific nondilated fluid-filled small bowel loops. N o free air or free fluid. Appendix is visualized and appears unremarkable. Scattered colonic diverti cula without adjacent inflammatory changes to suggest diverticulitis. Pelvic organs: Grossly unremarkable. Bladder: Unremarkable. No mass. Abdominal wall: No mass or hernia. Bones: No acute fracture or suspicious intraosseous lesion. Moderate sclerosis adjacent to the sacroi liac joints. IMPRESSION: 1. Nonspecific nondilated fluid-filled small bowel loops. Findings may be seen with ileus or enteriti s in the appropriate clinical setting. No small bowel obstruction. 2. Scattered colonic diverticula without adjacent inflammatory changes to suggest diverticulitis. 3. Additional nonacute findings as described above.
[2025-04-27] MEDS: DICYCLOMINE HCL 10 MG CAP PO ONE (13:07)
[2025-04-27] MEDS: ACETAMINOPHEN 500 MG TAB or CAP PO PRN (13:08)
[2025-04-27] MEDS ORDERED: DEXTROSE (50%) 50ML SYRG IV PRN (13:30)
[2025-04-27 14:15] LABS: Protein, Urine 26.0 mg/dL (1-14)
[2025-04-27 14:18] LABS: Cannabinoid Screen, Urine Pos (NEGATIVE); Opiate Scree,Urine Neg (NEGATIVE)
[2025-04-27 14:22] LABS: Amphetamine Screen, Urine Neg (NEGATIVE); Barbiturate Scree,Urine Neg (NEGATIVE); Benzodiazephine Screen, Urine Neg (NEGATIVE); Cocaine Screen, Urine Neg (NEGATIVE); Phencyclidine Screen, Urine Neg (NEGATIVE)
[2025-04-27 16:00] VITALS: BP 172/99; PULSE 93; RESP 17; TEMP 98.9; O2SAT 98
[2025-04-27] MEDS: MORPHINE SULFATE INJ 2 MG/ml SYRG IV PRN (16:03)
[2025-04-27] MEDS: INSULIN LANTUS (GLARGINE) 1 /0.01ml (100units/ml) SC ONE (16:22)
[2025-04-27 17:48] LABS: Urine Protein, UAD Negative (Negative)
[2025-04-27] MEDS: InsuLIN REG 1unit/0.01ml Soln (100units/ml) SC SCH (18:00)
[2025-04-27] MEDS: ACCU-CHEK COMFORT CURVE STRIP VI SCH (18:00)
--- NOTE | 2025-04-27 18:27 | DVHPNRES ---
Progress Note Date Seen: Apr 27, 2025 Resident Creating Document: BERT PALM RESIDENT Medical Necessity Reason Pt with a Central, PICC or Fol: No Subjective Review of Systems 44-year-old male with type 1 diabetes mellitus poorly compliant with insulin, recently discharged from our hospital due to sepsis secondary to uncontrolled hyperglycemia or gastroenteritis, presents to the ER with complaints of severe abdominal pain rating 10/10, gradual in onset, nonradiating and no aggravating or relieving factor noted. The patient reports having nausea and vomiting, contents of vomiting is food mixed with bile, yellowish in color. The patient reports having multiple bouts of watery stool since discharged from the hospital last week. Diarrhea is not mixed with blood. He reports having shortness of breath at rest, no relieving or aggravating factor. He denies any chest pain, fever or any other complaints. 04/27/2025 Patient seen in holding. Patient appears alert x3, in moderate distress, he complains of 8/10 diffuse abdominal pain, states that he has vomited 30 times a day before being admitted and vomited 3 times since he has been admitted to the hospital, had 3 episodes of watery diarrhea. He states stopped smoking marijuana last Wednesday. Patient is started on metoclopramide 10 mg Q 8 IV, dicyclomine 10 mg p.o.. Patient is started on moderate sliding scale. Objective vital signs Vital Sign Date Time Temp Pulse Resp B/P (MAP) Pulse Ox O2 Delivery O2 Flow Rate FiO2 04/27/25 16:03 93 17 172/99 04/27/25 16:00 98.9 98 98.9 04/26/25 22:07 Room Air* 0 21 Total Intake and Output 04/26/25 04/26/25 04/27/25 15:00 23:00 07:00 Intake Total 1000 ml Balance 1000 ml medications Current Medications Medications Dose Ordered Sig/Adina Route Start Time Stop Time Status Last Admin Dose Admin Ondansetron HCl 4 mg Q4HP PRN IV 04/27/25 05:45 04/27/25 09:59 4 MG Acetaminophen 500 mg Q4HPRN PRN PO 04/27/25 12:00 04/27/25 13:08 500 MG Morphine Sulfate 1 mg Q4HPRN PRN IV 04/27/25 12:00 04/27/25 16:03 1 MG Insulin Glargine 60 units HS SC 04/27/25 22:00 Diagnostic Test (Pha) 1 strip Q6HR 04/27/25 18:00 Insulin Human Regular Q6HR SC 04/27/25 18:00 Dextrose 50 ml UD PRN IV 04/27/25 13:30 Metoclopramide HCl 10 mg Q8HR IV 04/27/25 22:00 Acetaminophen/ Hydrocodone Bitart 1 tab Q6HPRN PRN PO 04/27/25 16:30 Examination General: Patient alert and oriented in person, place and time. Patient following commands. HEENT: Normocephalic, atraumatic, moist mucous membranes Respiratory/pulmonary: Clear lungs bilaterally, vesicular murmurs present in almost all lung johnson, no associated crackles or wheezes. Cardiovascular: Normal heart sounds S1 and S2 with no associated murmurs Abdomen: Diffuse abdominal pain Extremities: There is no peripheral edema present at the lower extremities. Peripheral Pulses: 3+ Radial (R). 3+ Radial (L). 3+ Dorsalis pedis (R). 3+ Dorsalis pedis(L) Skin: No rashes or pruritus, there is no sacral edema present at this time. Neurological: Intact cranial nerves with no focal neurologic deficits laboratory and microbiology Laboratory Tests 04/26/25 21:20 Test 04/26/25 21:20 Range/Units Serum Glucose 361 H 74-106 mg/dL Problem List/Assessment/Plan Problem List/Assessment/Plan # SIRS with AOD # early DKA - resolved # intractable nausea and vomiting # intractable abdominal pain # intractable diarrhea due to possible gastroenteritis - Ondansetron 4 mg - Morphine 1 mg IV q.4 # acute exacerbation of gastroparesis - metoclopramide 10 mg IV Q 8 # history of gastritis - pantoprazole 40 mg IV # diabetes mellitus with hyperglycemia: HbA1c 9.3 - patient started on Lantus 60 units HS, moderate insulin sliding scale # noncompliance to medication # cannabis abuse disorder - tox positive for cannabinoids -patient counseled on cessation of cannabis for more than 13 minutes PPI prophylaxis: Pantoprazole 40 mg IV DVT prophylaxis: Not indicated Goals of care addressed with the patient for more than 27 minutes: Full code status Case discussed with Dr. Viramontes , patient and nurse Plan discussed with: Patient My Orders My Orders Orders - BERT PALM RESIDENT Procedure Category Date Status Time Communication Order ORDERS 04/27/25 Transmitted 10:35 Acetaminophen Tab Or PHA 04/27/25 In Process Cap (Tylenol Tablet 12:00 Morphine Sulfate PHA 04/27/25 In Process Injection 12:00 Insulin Lantus PHA 04/27/25 In Process (Glargine) (Lantus) 22:00 Glucose Blood PHA 04/27/25 In Process (Accu-Chek Comfort 18:00 Insulin R (Human) PHA 04/27/25 In Process (Insulin R) 18:00 Dextrose 50% Syringe PHA 04/27/25 In Process 13:30 Metoclopramide PHA 04/27/25 In Process Injection (Reglan 22:00 Hydrocodone-Acet PHA 04/27/25 In Process 5/325mg Tab ([place] 16:30 Date of Service: Apr 27, 2025 Billing Provider: RAFAEL VARGHESE MD Common Visit Codes: [id number] INP/OBS CARE(HIGH) BERT PALM RESIDENT Apr 27, 2025 18:27 RAFAEL VARGHESE MD May 07, 2025 03:29
[2025-04-27 20:00] VITALS: BP 98/70; PULSE 85; RESP 20; TEMP 98.1; O2SAT 98
[2025-04-27] MEDS: PANTOPRAZOLE 40 MG/10 ML VIAL INJ IV ONE (21:13)
[2025-04-27] MEDS: METOCLOPRAMIDE HCL 5MG/ml INJ 2ml VIAL IV SCH (21:14)
[2025-04-27] MEDS: HYDROcodone-ACET 5/325MG TAB PO PRN (21:28)
[2025-04-27] MEDS: INSULIN LANTUS (GLARGINE) 1 /0.01ml (100units/ml) SC SCH (21:39)
[2025-04-27 23:05] VITALS: BP 118/84; PULSE 97; RESP 17; TEMP 98.2; O2SAT 98
[2025-04-27 23:47] VITALS: BP 119/80; PULSE 83; RESP 17; O2SAT 97
[2025-04-28 04:00] VITALS: BP 117/80; PULSE 99; RESP 17; TEMP 98.1; O2SAT 97
[2025-04-28 05:00] VITALS: BP 155/89; PULSE 105; RESP 19; TEMP 97.7; O2SAT 96
[2025-04-28 07:27] LABS: Hematocrit 36.7 % (41.0-53.0); Hemoglobin 12.6 g/dL (13.5-17.5); Mean Corpuscular Hemoglobin 29.1 pg (28.0-32.0); Mean Corpuscular Volume 84.6 fL (80.0-100.0); Nucleated Red Blood Cells % 0.1 %
[2025-04-28 07:52] LABS: Alanine Aminotransferase 16 U/L (7-40); Albumin 4.0 g/dL (3.2-4.8); Alkaline Phosphatase 70 U/L (46-116); Anion Gap 10 (5-15); BUN/Creatinine Ratio 17.0 (10.0-20.0); Bilirubin, Total 0.8 mg/dL (0.2-1.0); Blood Urea Nitrogen 15 mg/dL (9-23); Calcium 8.8 mg/dL (8.7-10.4); Carbon Dioxide 27 mmol/L (20-31); Chloride 98 mmol/L (98-107); Glucose 165 mg/dL (74-106); Potassium 3.7 mmol/L (3.5-5.1); Sodium 135 mmol/L (136-145); Total Protein 6.3 g/dL (5.7-8.2)
[2025-04-28 08:00] VITALS: BP 136/88; PULSE 78; RESP 18; RESP 19; TEMP 97.6; O2SAT 99
[2025-04-28 09:00] VITALS: BP 136/88; PULSE 78; RESP 19; TEMP 97.6; O2SAT 99
--- NOTE | 2025-04-28 12:09 | DVHSR ---
APPROVED REPORT EXAM: Two-dimensional and M-mode echocardiogram with Doppler and color Doppler. Blood Pressure: 155/89 mmHg INDICATION Shortness of breath RISK FACTORS Height: 5'6", Weight: 138 DIMENSIONS LVDd4.1 (3.8-5.7cm)LA (2D)3.3 (1.9-4.0cm)Aortic Root3.2 (2.0-3.7cm) LVDs2.8 (2.5-4.0cm)LA (MM) (1.9-4.0cm)Aortic Cusp Exc1.6 (1.5-2.0cm) EF (%) 60.0 (55-70%)Rt. Atrium3.8 (1.9-4.0cm)Asc. Aorta cm IVSd1.1 (0.7-1.1cm)RV (D) (1.8-2.4cm) PWd0.9 (0.7-1.1cm) Mitral Valve MitralMitral Stenosis E wave0.54m/sMV Mean GR.mmHg A wave0.56m/sMV Peak GR.mmHg E/A ratio1.02D MVAcm2 DECEL [id number] 1/2 Timems Aortic Valve Aortic ValveAortic Stenosis V10.88m/Ladi Mean GR.3mmHg V21.27m/Ladi Peak GR.6mmHg LVOT Diameter2.0 (1.8-2.4cm)Doppler AVA2.18cm2 Pulmonic Valve V21.15m/s Tricuspid Valve TR Velocity2.49m/s [id number] Conclusion lvef 55% mild LVH no severe valve abnormalities noted normal rv function
[2025-04-28] MEDS: PANTOPRAZOLE 40 MG/10 ML VIAL INJ IV SCH (12:33)
[2025-04-28 13:00] VITALS: BP 133/90; PULSE 85; RESP 20; TEMP 98.2; O2SAT 97
[2025-04-28] MEDS ORDERED: HALOPERIDOL LACTATE 5 MG/ML INJ VIAL IM PRN (15:30)
[2025-04-28] MEDS ORDERED: HALOPERIDOL 1 MG TAB PO PRN (16:00)
[2025-04-28 16:37] VITALS: BP 146/94; PULSE 83; RESP 19; TEMP 97.6; O2SAT 97
--- NOTE | 2025-04-28 17:04 | DVHDSRES ---
Discharge Summary Date of Admission Resident Creating Document: MIGUEL CARABALLO RESIDENT Apr 27, 2025 at 05:34 Date of Discharge: Apr 28, 2025 Admitting Diagnosis # SIRS with AOD # early DKA Labs/Diagnostic Data: Laboratory Results Test 04/28/25 09:51 04/28/25 07:01 04/27/25 12:00 04/27/25 06:12 POC Glucose 144 mg/dl (70-106) White Blood Count 8.1 10^3/uL (4.4-10.8) Red Blood Count 4.34 10^6/uL (4.5-5.90) Hemoglobin 12.6 g/dL (13.5-17.5) Hematocrit 36.7 % (41.0-53.0) Mean Corpuscular Volume 84.6 fL (80.0-100.0) Mean Corpuscular Hemoglobin 29.1 pg (28.0-32.0) Mean Corpuscular Hemoglobin Concent 34.4 g/dL (32.0-36.0) Red Cell Distribution Width 13.4 % (11.8-14.3) Platelet Count 325 10^3/uL (140-450) Mean Platelet Volume 6.9 fL (6.9-10.8) Neutrophils (%) (Auto) 76.0 % (37.0-80.0) Lymphocytes (%) (Auto) 15.5 % (10.0-50.0) Monocytes (%) (Auto) 8.1 % (0.0-12.0) Eosinophils (%) (Auto) 0.2 % (0.0-7.0) Basophils (%) (Auto) 0.2 % (0.0-2.0) Neutrophils # (Auto) 6.2 10 ^3/uL (1.6-8.6) Lymphocytes # (Auto) 1.3 10 ^3/uL (0.4-5.4) Monocytes # (Auto) 0.7 10 ^3/uL (0-1.3) Eosinophils # (Auto) 0 10 ^3/uL (0-0.8) Basophils # (Auto) 0 10 ^3/uL (0-0.2) Nucleated Red Blood Cells 0.1 % Sodium Level 135 mmol/L (136-145) Potassium Level 3.7 mmol/L (3.5-5.1) Chloride Level 98 mmol/L (98-107) Carbon Dioxide Level 27 mmol/L (20-31) Anion Gap 10 (5-15) Blood Urea Nitrogen 15 mg/dL (9-23) Creatinine 0.88 mg/dL (0.700-1.30) Glomerular Filtration Rate Calc 107 mL/min (>90) BUN/Creatinine Ratio 17.0 (10.0-20.0) Serum Glucose 165 mg/dL (74-106) Calcium Level 8.8 mg/dL (8.7-10.4) Total Bilirubin 0.8 mg/dL (0.2-1.0) Aspartate Amino Transferase (AST) 17 U/L (13-40) Alanine Aminotransferase (ALT) 16 U/L (7-40) Alkaline Phosphatase 70 U/L (46-116) Total Protein 6.3 g/dL (5.7-8.2) Albumin 4.0 g/dL (3.2-4.8) Urine Color Light yellow (Yellow) Urine Clarity Clear (Clear) Urine pH 6.0 (5.0-9.0) Urine Specific [place] 1.033 (1.001-1.035) Urine Protein Negative (Negative) Urine Ketones Negative (Negative) Urine Blood Negative /uL (Negative) Urine Nitrite Negative (Negative) Urine Bilirubin Negative (Negative) Urine Urobilinogen Normal mg/dL (Negative) Urine Leukocyte Esterase Negative /uL (Negative) Urine RBC None seen /hpf (0 - 3) Urine Microscopic WBC 2 /HPF (0-3) Urine Squamous Epithelial Cells Few /hpf (<5) Urine Bacteria None seen /hpf (None Seen) Urine Osmolality 860 mOsm/kg Urine Creatinine 115.20 mg/dL (30.0-125.0) Urine Protein/Creatinine Ratio 0.23 Urine Sodium 44 mmol/L (40-220) Urine Glucose 4+ mg/dL (Normal) Urine Total Protein 26.0 mg/dL (1-14) Urine Opiates Screen Neg (NEGATIVE) Urine Fentanyl Screen Neg (NEGATIVE) Urine Barbiturates Screen Neg (NEGATIVE) Urine Phencyclidine Screen Neg (NEGATIVE) Urine Amphetamines Screen Neg (NEGATIVE) Urine Benzodiazepines Screen Neg (NEGATIVE) Urine Cocaine Screen Neg (NEGATIVE) Urine Cannabinoids Screen Pos (NEGATIVE) Lactic Acid Level 1.6 mmol/L (0.4-2.0) Lipase 23 U/L (12-53) Beta-Hydroxybutyric Acid 0.242 mmol/L (< 0.4) Test 04/26/25 22:13 04/26/25 21:20 Blood Gas Specimen Type Arterial Blood Gas Sample Site Right brachial Blood Gas Patient Temperature 37.0 Arterial Blood Date Drawn [id number] Arterial Blood pH 7.410 (7.350-7.450) Arterial Blood Partial Pressure CO2 35.9 mmHg (35.0-48.0) Arterial Blood Partial Pressure O2 71.6 mmHg (83.0-108.0) Arterial Blood HCO3 22.2 mmol/L (21.0-28.0) Arterial Blood Oxygen Saturation 92.7 % (94.0-98.0) Arterial Blood Base Excess -1.8 mmol/L (-2.0-3.0) Arterial Blood Oxyhemoglobin 90.8 % (94.0-98.0) Arterial Blood Carboxyhemoglobin 1.4 % (0.5-1.5) Arterial Blood Methemoglobin 0.6 % (0.0-1.5) Umer Test N/a Blood Gas Total Hemoglobin 14.90 g/dL (13.5-17.5) Blood Gas Modality Room air Blood Gas Spontaneous Rate 18 FiO2 % 21.0 Magnesium Level 2.5 mg/dL (1.6-2.6) Other Laboratory Tests 04/28/25 07:01 Brief Hx & Hospital Course: 44-year-old male with type 1 diabetes mellitus poorly compliant with insulin, recently discharged from our hospital due to sepsis secondary to uncontrolled hyperglycemia or gastroenteritis, presents to the ER with complaints of severe abdominal pain rating 10/10, gradual in onset, nonradiating and no aggravating or relieving factor noted. The patient reports having nausea and vomiting, contents of vomiting is food mixed with bile, yellowish in color. The patient reports having multiple bouts of watery stool since discharged from the hospital last week. Diarrhea is not mixed with blood. He reports having shortness of breath at rest, no relieving or aggravating factor. He denies any chest pain, fever or any other complaints. Brief history of hospitalization: Patient came in with SIRS with acute organ damage, early DKA which was resolved. He had diabetes mellitus with hyperglycemia and HbA1c 9.3 and we started the patient on a moderate insulin sliding scale and Lantus 60 units HS Daily. For intractable nausea and vomiting and abdominal pain as well as diarrhea due to possible gastroenteritis we started the patient on ondansetron 4 mg and gave him morphine 1 mg IV q.4 for his pain. Patient did acute exacerbation of gastroparesis so administered metoclopramide 10 mg IV Q 8 and Protonix. During his hospitalization, we counseled the patient that he needs to be compliant with his medication and the need of cessation of cannabis. Urine toxicology was positive for cannabis and we have counseled the patient extensively that it may be contributing to his cyclic vomiting. We also gave him Haldol 2 mg Q 8. Patient verbalizes understanding and says that he is willing to cut it down. He is now stable for discharge, has not vomited in the past 24 hours and is feeling better. General: Patient alert and oriented in person, place and time. Patient following commands. HEENT: Normocephalic, atraumatic, moist mucous membranes Respiratory/pulmonary: Clear lungs bilaterally, vesicular murmurs present in almost all lung johnson, no associated crackles or wheezes. Cardiovascular: Normal heart sounds S1 and S2 with no associated murmurs Abdomen: Diffuse abdominal pain Extremities: There is no peripheral edema present at the lower extremities. Peripheral Pulses: 3+ Radial (R). 3+ Radial (L). 3+ Dorsalis pedis (R). 3+ Dorsalis pedis(L) Skin: No rashes or pruritus, there is no sacral edema present at this time. Neurological: Intact cranial nerves with no focal neurologic deficits Operations or Procedures ABPL - CT AB PEL WO CON-NO ORAL OR IV REASON: Abdominal pain IMPRESSION: 1. Nonspecific nondilated fluid-filled small bowel loops. Findings may be seen with ileus or enteritis in the appropriate clinical setting. No small bowel obstruction. 2. Scattered colonic diverticula without adjacent inflammatory changes to suggest diverticulitis. 3. Additional nonacute findings as described above. CXR2 - CHEST TWO VIEWS ROUTINE REASON: Shortness of breaths IMPRESSION: No acute cardiopulmonary disease. Condition at Discharge: Stable Final Diagnosis/Problems List # SIRS with AOD # early DKA ntractable nausea and vomiting # intractable abdominal pain # intractable diarrhea due to possible gastroenteritis # acute exacerbation of gastroparesis # history of gastritis # diabetes mellitus with hyperglycemia: HbA1c 9.3 # noncompliance to medication # cannabis abuse disorder Discharge Disposition: Home Discharge Instruct/Medications Diet: Consistent carbohydrate, Cardiac 2g Na,low cholest Activity: No Restrictions, As Tolerated Follow Up/Referral: Follow up with the primary care physician in 10 days Follow up in [place] clinic within 1 week Medications: Resume home medication including metoclopramide Scheduled Alum & Mag Hydrox-Simethicone (Gi Cocktail), 55 ML PO BID Alum & Mag Hydrox-Simethicone (Gi Cocktail), 55 ML PO TID Amlodipine Besylate (Norvasc Tablet), 5 MG PO DAILY Ergocalciferol (Vitamin D 63140 Unit), 50,000 UNIT PO QWEEKLY Insulin Glargine (Lantus), 80 UNIT SC HS Metoclopramide HCl (Metoclopramide Hydrochlor), 10 MG PO BID Mupirocin (Pseudomonas Fluores (Mupirocin), 2 % EX BID Pantoprazole Sodium Sesquihydr (Pantoprazole Sodium), 40 MG PO DAILY Sucralfate (Carafate Susp), 1 GM PO BID@0600,2200 Scheduled PRN Acetaminophen (Acetaminophen), 650 MG PO Q6HP PRN Miscellaneous Medications Pramipexole Dihydrochloride (Mirapex Er), 3.75 MG PO, (Reported) Durable Medical Equipment Blood Glucose Monitoring Suppl ([employer] VERIO REFLECT w/Device), KIT XX TIDWM PRN, (DME) Discharge Statement: "Patient was advised to return to the ER or call 911 if any headaches, dizziness, shortness of breath, chest pain, abdominal pain, bleeding, fevers, or worsening of medical condition. Patient was counseled about treatment plan, medications, possible side effects, patientverbalized understanding. All questions were answered to the best of my ability. This discharge took greater then 30 minutes in planning, reviewing documentation, counseling the patient, and discussing with other team members." ASSESSMENT ASSESSMENT Assessment #SIRS with acute organ damage #Early DKA Date of Service: Apr 28, 2025 Billing Provider: KANDY LOPEZ MD Common Visit Codes: 57156-DCW/OBS DISCH DAY >30min MIGUEL CARABALLO RESIDENT Apr 28, 2025 17:04 KANDY LOPEZ MD Apr 30, 2025 21:15
== END 2025-04-28 18:25 | disposition home or self-care (01) | DRG 48 ==
LOC: ER 20:56 → EDBD 20:56 → OVERFLOW 04-27 05:34 → TELE-WESTW 04-27 22:07
PROVIDERS: ADMIT Student in an Organized Health Care Education/Training Program; ATTEND Student in an Organized Health Care Education/Training Program
DX: E10.43 Type 1 diabetes mellitus with diabetic autonomic (poly)neuropathy (principal); R65.11 Systemic inflammatory response syndrome (SIRS) of non-infectious origin with acute organ dysfunction; N17.0 Acute kidney failure with tubular necrosis; E10.10 Type 1 diabetes mellitus with ketoacidosis without coma; K31.84 Gastroparesis; K52.9 Noninfective gastroenteritis and colitis, unspecified; F12.10 Cannabis abuse, uncomplicated; Z91.148 Patient's other noncompliance with medication regimen for other reason; Z79.4 Long term (current) use of insulin
CPT/HCPCS: 36415; 36600; 71046; 74176; 80053; 80307; 81001; 82010; 82570; 82805; 82962; 83605; 83690; 83735; 83935; 84156; 84300; 85025; 87081; 93306; 96361; 96374; 96375; G0378; J1815; J2405; J2470

== ENCOUNTER 2025-05-18 12:32 | Emergency (ER) | payer MEDICAID ==
[~2025-05-18] VITALS: Ht 177.8 cm; Wt 81.8 kg
--- NOTE | 2025-05-18 12:36 | ED.PDOC ---
GI ASSESSMENT HPI Comments This is a 44 year old male ARIS presenting to the ED with chief complaint of abdominal pain. EMS reports that the patient has been experiencing 10/10 epigastric abdominal pain with associated nausea since this morning. EMS relays that the patient's BG was noted to be 246 en route. EMS states patient was given IV fluids and 4mg of Zofran en route. Patient denies any fever, diarrhea, chest pain, SOB, hematemesis, or melena. Time Seen by MD: 12:36 Primary Care Provider: UNKNOWN Reviewed Notes: Nurses Notes, Motor Adjuster Notes, Medications, Allergies Allergies: Coded Allergies: NO KNOWN ALLERGIES (Unverified , 09/21/20) Home Meds Active Scripts Metoclopramide HCl (Metoclopramide Hydrochlor) 10 Mg Tab, 10 MG PO BID for 10 Days, #20 TAB 0 Refills Prov:THOMAS ADAMS RESIDENT 04/18/25 Pantoprazole Sodium Sesquihydr (Pantoprazole Sodium) 40 Mg Tab, 40 MG PO DAILY for 30 Days, #30 TAB 0 Refills Prov:THOMAS ADAMS RESIDENT 04/18/25 Mupirocin (Pseudomonas Fluores (Mupirocin) 2 % Oin, 2 % EX BID for 30 Days, #1 OIN Prov:JOSÉ LUIS VAUGHAN MD 03/21/25 Blood Glucose Monitoring Suppl (ONETOUCH VERIO REFLECT w/Device) 1 Kit Kit, KIT XX TIDWM PRN, #1 Prov:JOSÉ LUIS VAUGHAN MD 03/21/25 Amlodipine Besylate (NORVASC TABLET) 5 Mg Tb, 5 MG PO DAILY for 30 Days, #30 TAB 5 Refills Prov:LORRAINE ACEVEDO MD 01/23/25 Sucralfate (CARAFATE SUSP) 1 Gm/10 Ml Ss, 1 GM PO BID@0600,2200 for 14 Days, #10 ML 5 Refills Prov:LORRAINE ACEVEDO MD 01/23/25 Insulin Glargine (Lantus) 100 Unit/Ml Inj, 80 UNIT SC HS for 96 Days, #10 ML 5 Refills Prov:LORRAINE ACEVEDO MD 01/23/25 Alum & Mag Hydrox-Simethicone (Gi Cocktail) 55 Ml Ss, 55 ML PO TID for 30 Days, #1 ML Prov:COREEN BULLARD RESIDENT 01/03/25 Alum & Mag Hydrox-Simethicone (Gi Cocktail) 55 Ml Ss, 55 ML PO BID for 10 Days, #1 ML Prov:COREEN BULLARD 01/02/25 Ergocalciferol (VITAMIN D 07582 UNIT) 50,000 [place], [address] UNIT PO QWEEKLY for 30 Days, #4 CAP Prov:COREEN BULLARD 11/28/24 Acetaminophen (Acetaminophen) 325 Mg Tab, 650 MG PO Q6HP PRN for 30 Days, #240 TAB Prov:COREEN BULLARD 11/28/24 Reported Medications Pramipexole Dihydrochloride (MIRAPEX ER) 3.75 Mg Tab, 3.75 MG PO, TAB 04/12/25 Information Source: Patient, Emergency Med Personnel Mode of Arrival: EMS Timing: Hours Duration: Since onset Prehospital treatment: None Quality: Aching Vomitus: None Stool: Normal Severity: Moderate Recent: None Recent Hx of: None Pain Location: Epigastric Modifying Factors: Nothing Associated sign and symptoms: Nausea, Abdominal Pain Past Medical History PAST MEDICAL HISTORY: DM Surgical History (Other): Back surgery, neck surgery Family History Family History: Reviewed,noncontributory to illness Social History Smoker: Non-Smoker Alcohol: Denies ETOH Use Drugs: Marijuana Lives In: Home Constitutional: denies: chills, diaphoresis, fatigue, fever, malaise, sweats, weakness, others EENTM: denies: blurred vision, double vision, ear bleeding, ear discharge, ear drainage, ear pain, ear ringing, eye pain, eye redness, hearing loss, mouth pain, mouth swelling, nasal discharge, nose bleeding, nose congestion, nose pain, photophobia, tearing, throat pain, throat swelling, voice changes, others Respiratory: denies: cough, hemoptysis, orthopnea, SOB at rest, shortness of breath, SOB with excertion, stridor, wheezing, others Cardiovascular: denies: chest pain, dizzy spells, diaphoresis, Dyspnea on exertion, edema, irregular heart beat, left arm pain, lightheadedness, palpitations, PND, syncope, others Gastrointestinal: reports: abdominal pain, nausea; denies: abdomen distended, blood streaked bowels, constipated, diarrhea, dysphagia, difficulty swallowing, hematemesis, melena, poor appetite, poor fluid intake, rectal bleeding, rectal pain, vomiting, others Genitourinary: denies: burning, dysuria, flank pain, frequency, hematuria, incontinence, penile discharge, penile sore, pain, testicle pain, testicle swelling, urgency, others Neurological: denies: dizziness, fainting, headache, left sided numbness, left sided weakness, numbness, paresthesia, pre-existing deficit, right sided numbness, right sided weakness, seizure, speech problems, tingling, tremors, weakness, others Musculoskeletal: denies: back pain, gout, joint pain, joint swelling, muscle pain, muscle stiffness, neck pain, others Integumetry: denies: bruises, change in color, change in hair/nails, dryness, laceration, lesions, lumps, rash, wounds, others Allergic/Immunocompromised: denies: Difficulty Healing, Frequent Infections, Hi ves, Itching, others Hematologic/Lymphatic: denies: anemia, blood clots, easy bleeding, easy bruising, swollen glands, others Endocrine: denies: excessive hunger, excessive sweating, excessive thirst, excessive urination, flushing, intolerance to cold, intolerance to heat, unexplained weight gain, unexplained weight loss, others Psychiatric: denies: anxiety, bipolar disorder, depression, hopeless, panic disorder, schizophrenia, sleepless, suicidal, others All Other Systems: Reviewed and Negative Physical Exam General Appearance: Moderate Distress, Normal HEENT: Normal ENT Inspection, Pharynx Normal, TMs Normal Neck: Full Range of Motion, Non-Tender, Normal, Normal Inspection Respiratory: Chest Non-Tender, Lungs Clear, No Accessory Muscle Use, No Respiratory Distress, Normal Breath Sounds Cardiovascular: No Edema, No JVD, No Murmur, No Gallop, Normal Peripheral Pulses, Regular Rate/Rhythm Breast Exam: Deferred Gastrointestinal: Diffuse, No Organomegaly, No Pulsatile Mass, Normal Bowel Sounds, Soft Genitalia: Deferred Pelvic: Deferred Rectal: Deferred Extremities: No calf tenderness, Normal capillary refill, Normal inspection, Normal range of motion, Non-tender, No pedal edema Musculoskeletal : Apperance: Normal Neurologic: Alert, pillowcase folder II-XII nml as Tested, No Motor Deficits, Normal Affect, Normal Mood, No Sensory Deficits Cerebellar Function: NOT DONE Reflexes: NOT DONE Skin: Dry, Normal Color, Warm Peripheral Pulses: 3+ Radial (R), 3+ Radial (L) Lymphatic: No Adenopathy Was a procedure done? Was a procedure done?: No GI differential Dx Differential Diagnosis: Constipation, Diverticular disease, Esophagitis, Gastritis/PUD, Gastroenteritis X-Ray, Labs, Meds, VS Vital Signs Date Time Temp Pulse Resp B/P (MAP) Pulse Ox O2 Delivery O2 Flow Rate FiO2 05/18/25 13:11 98.3 91 16 168/88 (114) 97 98.3 05/18/25 13:11 91 16 97 Room Air* 0 21 05/18/25 13:03 99 16 168/88 05/18/25 12:32 98.3 88 24 189/93 98 98.3 Lab Test 05/18/25 13:53 05/18/25 13:06 Range/Units Troponin I High Sensitivity 3 L < 3 L </=54 ng/L White Blood Count 9.3 4.4-10.8 10^3/uL Red Blood Count 4.97 4.5-5.90 10^6/uL Hemoglobin 14.6 13.5-17.5 g/dL Hematocrit 42.0 41.0-53.0 % Mean Corpuscular Volume 84.4 80.0-100.0 fL Mean Corpuscular Hemoglobin 29.4 28.0-32.0 pg Mean Corpuscular Hemoglobin Concent 34.9 32.0-36.0 g/dL Red Cell Distribution Width 14.3 11.8-14.3 % Platelet Count 430 140-450 10^3/uL Mean Platelet Volume 6.8 L 6.9-10.8 fL Neutrophils (%) (Auto) 82.0 H 37.0-80.0 % Lymphocytes (%) (Auto) 12.1 10.0-50.0 % Monocytes (%) (Auto) 5.3 0.0-12.0 % Eosinophils (%) (Auto) 0.1 0.0-7.0 % Basophils (%) (Auto) 0.5 0.0-2.0 % Neutrophils # (Auto) 7.6 1.6-8.6 10 ^3/uL Lymphocytes # (Auto) 1.1 0.4-5.4 10 ^3/uL Monocytes # (Auto) 0.5 0-1.3 10 ^3/uL Eosinophils # (Auto) 0 0-0.8 10 ^3/uL Basophils # (Auto) 0 0-0.2 10 ^3/uL Nucleated Red Blood Cells 0.0 % Sodium Level 134 L 136-145 mmol/L Potassium Level 3.6 3.5-5.1 mmol/L Chloride Level 100 98-107 mmol/L Carbon Dioxide Level 21 20-31 mmol/L Anion Gap 13 5-15 Blood Urea Nitrogen 23 9-23 mg/dL Creatinine 1.37 H 0.700-1.30 mg/dL Glomerular Filtration Rate Calc 64 >90 mL/min BUN/Creatinine Ratio 16.8 10.0-20.0 Serum Glucose 235 H 74-106 mg/dL Calcium Level 9.5 8.7-10.4 mg/dL Lipase 28 12-53 U/L Current Medications Medications (Trade) Dose Ordered Sig/Adina Route Start Time Stop Time Status Last Admin Morphine Sulfate 4 mg ONCE ONCE IV 05/18/25 13:00 05/18/25 13:01 DC 05/18/25 13:03 Ondansetron HCl (Zofran) 4 mg ONCE ONCE IV 05/18/25 13:00 05/18/25 13:01 DC 05/18/25 13:09 Patient alert. Came in because of abdominal pain. Vitals stable. Answering questions. Abdomen is soft. Able to get a good physical examination. CT of the abdomen reviewed does not show any acute changes. Blood sugar elevated. Lipase within normal limits. WBC within normal limits. Cardiac marker within normal limits. Was given morphine. Was given Zofran. Possible gastritis. Was given prescription of Protonix. Explained to the patient. Was told to follow up with his primary care physician. Was told to come back if there is any problem. Time of 1ST Reevaluation: 13:35 Reevaluation 1ST: Unchanged Patient Education/Counseling: Diagnosis, Treatment Family Education/Counseling: No Family Present SEPSIS Sepsis Screen Physician Orders Troponin-I Hs (05/19/25 00:00) Urinalysis (05/18/25 12:54) Ct Ab Pel Wo Con-No Oral Or Iv (05/18/25 12:54) Vital Signs Date Time Temp Pulse Resp B/P (MAP) Pulse Ox O2 Delivery O2 Flow Rate FiO2 05/18/25 13:11 98.3 91 16 168/88 (114) 97 98.3 05/18/25 13:11 91 16 97 Room Air* 0 21 05/18/25 13:03 99 16 168/88 05/18/25 12:32 98.3 88 24 189/93 98 98.3 Laboratory Tests Test 05/18/25 13:06 White Blood Count 9.3 10^3/uL (4.4-10.8) Medications Medications Dose Ordered Sig/Adina Route Start Time Stop Time Status Last Admin Dose Admin Morphine Sulfate 4 mg ONCE ONCE IV 05/18/25 13:00 05/18/25 13:01 DC 05/18/25 13:03 Ondansetron HCl 4 mg ONCE ONCE IV 05/18/25 13:00 05/18/25 13:01 DC 05/18/25 13:09 Departure 1 Departure Time of Disposition: 14:53 Impression: Primary Impression: Acute abdominal pain Additional Impression: Gastritis Qualified Codes: K29.70 - Gastritis, unspecified, without bleeding Disposition: HOME / SELF CARE / HOMELESS Condition: Good e-Prescriptions Pantoprazole Sodium Sesquihydr (Protonix) 40 Mg Tab 40 MG PO DAILY for 7 Days, #7 TAB Prov: REJI SANTIAGO MD 05/18/25 Discharged With: Self Critical Care Note Critical Care Time?: No Stability Stability form required: No Heart Score Heart Score: Heart Score Response (Comments) Value History N/A 0 EKG N/A 0 Age N/A 0 Risk Factors N/A 0 Troponin N/A 0 Total 0 I personally scribed for REJI SANTIAGO MD ([email or web address]) on 05/18/25 at 12:36. Electronically submitted by Min Collins ([email or web address]). REJI SANTIAGO MD May 18, 2025 12:36
[2025-05-18] MEDS: MORPHINE SULFATE 4 MG/ML SYR/VIAL IV ONE (13:03)
[2025-05-18] MEDS: ONDANSETRON HCL 4 MG/2 ML VIAL IV ONE (13:09)
[2025-05-18 13:11] VITALS: PULSE 91; RESP 16; TEMP 98.3; O2SAT 97
[2025-05-18 13:22] LABS: Hematocrit 42.0 % (41.0-53.0); Hemoglobin 14.6 g/dL (13.5-17.5); Mean Corpuscular Hemoglobin 29.4 pg (28.0-32.0); Mean Corpuscular Volume 84.4 fL (80.0-100.0); Nucleated Red Blood Cells % 0.0 %
[2025-05-18 13:27] LABS: Chloride 100 mmol/L (98-107); Potassium 3.6 mmol/L (3.5-5.1)
[2025-05-18 13:28] LABS: Anion Gap 13 (5-15); Calcium 9.5 mg/dL (8.7-10.4); Carbon Dioxide 21 mmol/L (20-31)
[2025-05-18 13:29] LABS: Sodium 134 mmol/L (136-145)
[2025-05-18 13:33] LABS: BUN/Creatinine Ratio 16.8 (10.0-20.0); Lipase 28 U/L (12-53)
[2025-05-18 13:39] LABS: Blood Urea Nitrogen 23 mg/dL (9-23); Glucose 235 mg/dL (74-106)
--- NOTE | 2025-05-18 13:47 | DVH ---
Indication: colitis Technique: CT axial images of the abdomen and pelvis are obtained without contrast. Coronal and sagit liliam reformats were obtained. Radiation Dose Information: CTDI volume is 7.4 mGy. Dose-length product is 412 mGy*cm Comparison: CT CT AB PEL WO CON-NO ORAL OR IV on DOS: 04/27/25, FINDINGS: There is limited interpretation of the abdomen and pelvis without administration of intravenous contr ast. The lung bases demonstrate no pleural effusion. Adrenal glands, spleen, pancreas and liver unremarkable in shape. No CT evidence for cholelithiasis. No hydronephrosis/ nephrolithiasis. Stomach moderately distended. Small bowel loops are normal in caliber. Colonic diverticular disease moderate volume stool in the colon. Normal appendix. Atherosclerotic disease. Bladder partially distended. No free pelvic fluid. No inguinal lymphadenopa thy. [id number] bilateral sacroiliac degenerative joint disease [id number] thoracolumbar degen erative disc disease this is most pronounced at L5-S1. Large right paracentral disc protrusion at L5- S1 resulting in severe right neural foraminal stenosis. This also compresses upon the descending righ t S1 nerve root. IMPRESSION: Limited evaluation without contrast. Colonic diverticular disease. No significant abnormal bowel wall thickening. Other findings as described.
[2025-05-18 14:00] VITALS: BP 131/86; PULSE 94; RESP 14
[2025-05-18] MEDS ORDERED: PANT40TA2 PO (14:54)
== END 2025-05-18 15:15 | disposition home or self-care (01) ==
LOC: ER 12:32 → EDUNIT# 12:32 → EDBD 12:32 → ER 15:15
DX: K29.70 Gastritis, unspecified, without bleeding (principal); E11.9 Type 2 diabetes mellitus without complications; Z79.899 Other long term (current) drug therapy; Z98.890 Other specified postprocedural states
CPT/HCPCS: 36415; 74176; 80048; 83690; 84484; 85025; 96374; 96375; 99285; J2270; J2405

== ENCOUNTER 2025-06-09 10:03 | Inpatient (IN) | payer MEDICAID ==
[~2025-06-09] VITALS: Ht 170.2 cm; Wt 72.5 kg
[~2025-06-09 10:03] MED LIST changes: +PANT40TA2 PO
[2025-06-09 10:20] VITALS: PULSE 98; RESP 26; O2SAT 99
[2025-06-09] MEDS: HYDROmorphone HCL 2 MG/ML VL/or syr IV ONE ×2 (10:35→16:08)
[2025-06-09] MEDS: SODIUM CHLORIDE 0.9% 1,000 ML IVB ONE (10:36)
[2025-06-09] MEDS: ONDANSETRON HCL 4 MG/2 ML VIAL IV ONE ×2 (10:36→16:07)
--- NOTE | 2025-06-09 11:54 | ED.PDOC ---
GI ASSESSMENT HPI Comments 45-year-old male presents here with abdominal pain that radiates from his chest into his abdomen. He states he has had this pain for 2 years. He was due to have a colonoscopy recently but missed his preop appointment in his here today. For increased pain. He states the pain was unbearable this morning. Positive vomiting he states he has been vomiting significantly. No diarrhea. No recent cough cold runny nose fever or chills. Chief Complaint: Abdominal Pain Time Seen by MD: 11:50 Primary Care Provider: UNKNOWN Reviewed Notes: Medications, Allergies Allergies: Coded Allergies: NO KNOWN ALLERGIES (Unverified , 09/21/20) Home Meds Active Scripts Pantoprazole Sodium Sesquihydr (Protonix) 40 Mg Tab, 40 MG PO DAILY for 7 Days, #7 TAB Prov:REJI SANTIAGO MD 05/18/25 Metoclopramide HCl (Metoclopramide Hydrochlor) 10 Mg Tab, 10 MG PO BID for 10 Days, #20 TAB 0 Refills Prov:THOMAS ADAMS RESIDENT 04/18/25 Pantoprazole Sodium Sesquihydr (Pantoprazole Sodium) 40 Mg Tab, 40 MG PO DAILY for 30 Days, #30 TAB 0 Refills Prov:THOMAS ADAMS RESIDENT 04/18/25 Mupirocin (Pseudomonas Fluores (Mupirocin) 2 % Oin, 2 % EX BID for 30 Days, #1 OIN Prov:JOSÉ LUIS VAUGHAN MD 03/21/25 Blood Glucose Monitoring Suppl (ONETOUCH VERIO REFLECT w/Device) 1 Kit Kit, KIT XX TIDWM PRN, #1 Prov:JOSÉ LUIS VAUGHAN MD 03/21/25 Amlodipine Besylate (NORVASC TABLET) 5 Mg Tb, 5 MG PO DAILY for 30 Days, #30 TAB 5 Refills Prov:LORRAINE ACEVEDO MD 01/23/25 Sucralfate (CARAFATE SUSP) 1 Gm/10 Ml Ss, 1 GM PO BID@0600,2200 for 14 Days, #10 ML 5 Refills Prov:LORRAINE ACEVEDO MD 01/23/25 Insulin Glargine (Lantus) 100 Unit/Ml Inj, 80 UNIT SC HS for 96 Days, #10 ML 5 Refills Prov:LORRAINE ACEVEDO MD 01/23/25 Alum & Mag Hydrox-Simethicone (Gi Cocktail) 55 Ml Ss, 55 ML PO TID for 30 Days, #1 ML Prov:COREEN BULLARD 01/03/25 Alum & Mag Hydrox-Simethicone (Gi Cocktail) 55 Ml Ss, 55 ML PO BID for 10 Days, #1 ML Prov:COREEN BULLARD 01/02/25 Ergocalciferol (VITAMIN D 30537 UNIT) 50,000 [place], [address] UNIT PO QWEEKLY for 30 Days, #4 CAP Prov:COREEN BULLARD 11/28/24 Acetaminophen (Acetaminophen) 325 Mg Tab, 650 MG PO Q6HP PRN for 30 Days, #240 TAB Prov:COREEN BULLARD 11/28/24 Reported Medications Pramipexole Dihydrochloride (MIRAPEX ER) 3.75 Mg Tab, 3.75 MG PO, TAB 04/12/25 Information Source: Patient, Emergency Med Personnel Mode of Arrival: EMS Timing: Hours Duration: Since onset Prehospital treatment: IVF Quality: Burning, Sharp Severity: Moderate Recent: None Recent Hx of: None Pain Location: Diffuse Modifying Factors: Nothing Associated sign and symptoms: Nausea, Vomiting, Constipation, Abdominal Pain Past Medical History PAST MEDICAL HISTORY: DM Family History Family History: Reviewed,noncontributory to illness Social History Smoker: Non-Smoker Alcohol: Denies ETOH Use Drugs: Marijuana Lives In: Home Constitutional: denies: chills, diaphoresis, fatigue, fever, malaise, sweats, weakness, others EENTM: denies: blurred vision, double vision, ear bleeding, ear discharge, ear drainage, ear pain, ear ringing, eye pain, eye redness, hearing loss, mouth pain, mouth swelling, nasal discharge, nose bleeding, nose congestion, nose pain, photophobia, tearing, throat pain, throat swelling, voice changes, others Respiratory: denies: cough, hemoptysis, orthopnea, SOB at rest, shortness of breath, SOB with excertion, stridor, wheezing, others Cardiovascular: denies: chest pain, dizzy spells, diaphoresis, Dyspnea on exertion, edema, irregular heart beat, left arm pain, lightheadedness, palpita tions, PND, syncope, others Gastrointestinal: reports: abdominal pain, constipated, nausea, vomiting; denies: abdomen distended, blood streaked bowels, diarrhea, dysphagia, difficulty swallowing, hematemesis, melena, poor appetite, poor fluid intake, rectal bleeding, rectal pain, others Genitourinary: denies: burning, dysuria, flank pain, frequency, hematuria, incontinence, penile discharge, penile sore, pain, testicle pain, testicle swelling, urgency, others Neurological: denies: dizziness, fainting, headache, left sided numbness, left sided weakness, numbness, paresthesia, pre-existing deficit, right sided nu mbness, right sided weakness, seizure, speech problems, tingling, tremors, weakness, others Musculoskeletal: denies: back pain, gout, joint pain, joint swelling, muscle pain, muscle stiffness, neck pain, others Integumetry: denies: bruises, change in color, change in hair/nails, dryness, laceration, lesions, lumps, rash, wounds, others Allergic/Immunocompromised: denies: Difficulty Healing, Frequent Infections, Hives, Itching, others Hematologic/Lymphatic: denies: anemia, blood clots, easy bleeding, easy bruising, swollen glands, others Endocrine: denies: excessive hunger, excessive sweating, excessive thirst, excessive urination, flushing, intolerance to cold, intolerance to heat, unexplained weight gain, unexplained weight loss, others Psychiatric: denies: anxiety, bipolar disorder, depression, hopeless, panic disorder, schizophrenia, sleepless, suicidal, others All Other Systems: Reviewed and Negative Physical Exam General Appearance: No Apparent Distress, Normal HEENT: Normal ENT Inspection, Pharynx Normal, TMs Normal Neck: Full Range of Motion, Non-Tender, Normal, Normal Inspection Respiratory: Chest Non-Tender, Lungs Clear, No Accessory Muscle Use, No Respiratory Distress, Normal Breath Sounds Cardiovascular: No Edema, No JVD, No Murmur, No Gallop, Normal Peripheral Pulses, Regular Rate/Rhythm Breast Exam: Deferred Gastrointestinal: No Pulsatile Mass, Normal Bowel Sounds, Soft, Tenderness (Diffuse abdominal tenderness to palpation) Genitalia: Deferred Pelvic: Deferred Rectal: Deferred Extremities: No calf tenderness, Normal capillary refill, Normal inspection, Normal range of motion, Non-tender, No pedal edema Musculoskeletal : Apperance: Normal Neurologic: Alert, production gear cutter II-XII nml as Tested, No Motor Deficits, Normal Affect, Normal Mood, No Sensory Deficits Cerebellar Function: Normal Reflexes: Normal Skin: Dry, Normal Color, Warm Lymphatic: No Adenopathy Was a procedure done? Was a procedure done?: No GI differential Dx Differential Diagnosis: Other Other Differential Diagnosis Aortic dissection, small-bowel obstruction, esophagitis colitis, UTI, electrolyte abnormality, X-Ray, Labs, Meds, VS Vital Signs Date Time Temp Pulse Resp B/P (MAP) Pulse Ox O2 Delivery O2 Flow Rate FiO2 06/09/25 16:35 78 17 142/82 06/09/25 16:34 78 17 117/80 06/09/25 16:08 83 17 117/80 06/09/25 16:00 98.3 81 18 108/73 (85) 98 98.3 06/09/25 14:00 98.0 80 17 131/83 (99) 99 98.0 06/09/25 12:00 98.2 78 17 125/75 (92) 99 98.2 06/09/25 11:12 80 18 143/86 06/09/25 10:35 100 20 133/99 06/09/25 10:20 98.3 98 26 157/98 (117) 99 98.3 06/09/25 10:20 98 26 99 Room Air* 0 21 06/09/25 10:16 98.3 98 26 157/98 99 98.3 Lab Test 06/09/25 16:16 06/09/25 16:02 06/09/25 11:41 Range/Units POC Glucose 186 H 70-106 mg/dl Urine Color Yellow Yellow Urine Clarity Clear Clear Urine pH 6.0 5.0-9.0 Urine Specific [place] 1.030 1.001-1.035 Urine Protein Trace H Negative Urine Ketones 1+ H Negative Urine Blood Negative Negative /uL Urine Nitrite Negative Negative Urine Bilirubin Negative Negative Urine Urobilinogen 2 H Negative mg/dL Urine Leukocyte Esterase Negative Negative /uL Urine RBC 1 0 - 3 /hpf Urine Microscopic WBC 1 0-3 /HPF Urine Squamous Epithelial Cells Few <5 /hpf Urine Bacteria None seen None Seen /hpf Urine Glucose 4+ H Normal mg/dL White Blood Count 9.0 4.4-10.8 10^3/uL Red Blood Count 4.80 4.5-5.90 10^6/uL Hemoglobin 13.9 13.5-17.5 g/dL Hematocrit 40.1 L 41.0-53.0 % Mean Corpuscular Volume 83.6 80.0-100.0 fL Mean Corpuscular Hemoglobin 28.9 28.0-32.0 pg Mean Corpuscular Hemoglobin Concent 34.5 32.0-36.0 g/dL Red Cell Distribution Width 13.9 11.8-14.3 % Platelet Count 345 140-450 10^3/uL Mean Platelet Volume 7.0 6.9-10.8 fL Neutrophils (%) (Auto) 80.5 H 37.0-80.0 % Lymphocytes (%) (Auto) 12.8 10.0-50.0 % Monocytes (%) (Auto) 6.4 0.0-12.0 % Eosinophils (%) (Auto) 0.1 0.0-7.0 % Basophils (%) (Auto) 0.2 0.0-2.0 % Neutrophils # (Auto) 7.2 1.6-8.6 10 ^3/uL Lymphocytes # (Auto) 1.1 0.4-5.4 10 ^3/uL Monocytes # (Auto) 0.6 0-1.3 10 ^3/uL Eosinophils # (Auto) 0 0-0.8 10 ^3/uL Basophils # (Auto) 0 0-0.2 10 ^3/uL Nucleated Red Blood Cells 0.0 % Sodium Level 130 L 136-145 mmol/L Potassium Level 3.8 3.5-5.1 mmol/L Chloride Level 90 L 98-107 mmol/L Carbon Dioxide Level 31 20-31 mmol/L Anion Gap 9 5-15 Blood Urea Nitrogen 29 H 9-23 mg/dL Creatinine 1.38 H 0.700-1.30 mg/dL Glomerular Filtration Rate Calc 63 >90 mL/min BUN/Creatinine Ratio 21.0 H 10.0-20.0 Serum Glucose 243 H 74-106 mg/dL Calcium Level 8.6 L 8.7-10.4 mg/dL Total Bilirubin 1.8 H 0.2-1.0 mg/dL Aspartate Amino Transferase (AST) 27 13-40 U/L Alanine Aminotransferase (ALT) 19 7-40 U/L Alkaline Phosphatase 82 46-116 U/L Total Protein 7.0 5.7-8.2 g/dL Albumin 4.2 3.2-4.8 g/dL Lipase 32 12-53 U/L Current Medications Medications (Trade) Dose Ordered Sig/Adina Route Start Time Stop Time Status Last Admin Ondansetron HCl (Zofran) 4 mg ONCE ONCE IV 06/09/25 10:30 06/09/25 10:31 DC 06/09/25 10:36 Hydromorphone HCl (Dilaudid Injection) 1 mg ONCE ONCE IV 06/09/25 10:30 06/09/25 10:31 DC 06/09/25 10:35 Sodium Chloride 1,000 ml @ 1,000 mls/hr Q1H ONCE IVB 06/09/25 10:30 06/09/25 11:29 DC 06/09/25 10:36 Hydromorphone HCl (Dilaudid Injection) 1 mg ONCE ONCE IV 06/09/25 16:00 06/09/25 16:01 DC 06/09/25 16:08 Ondansetron HCl (Zofran) 4 mg ONCE ONCE IV 06/09/25 16:00 06/09/25 16:01 DC 06/09/25 16:07 [place] [id number] Ph: [phone] DIAGNOSTIC IMAGING Diagnostic Imaging Report : [id number] Signed PATIENT: ROB DOUGLAS ACCT: [id number] UNIT: [id number] : 1980 LOC: ER ROOM / BED: / AGE / SEX: 45 / M ADM STATUS: REG ER SERVICE 1024 ORDERING PHYSICIAN: DUNCAN BAUTISTA MD PROCEDURE(s): ABPL - CT AB PEL WO CON-NO ORAL OR IV REASON: Abdominal pain ORDER NUMBER(s): [id number], ACCESSION NUMBER(s): [id number] CLINICAL HISTORY: Abdominal pain TECHNIQUE: CT of the abdomen and pelvis was performed without IV contrast. This exam was performed according to our departmental dose optimization program. Up-to-date CT equipment and radiation dose reduction techniques are utilized as appropriate. CTDI 12.2 DLP 692 COMPARISON: CT CT AB PEL WO CON-NO ORAL OR IV on DOS: 05/18/25, CT CT AB PEL WO CON-NO ORAL OR IV on DOS: 04/27/25, CT CT ABD PELVIS W CON-ORAL IV on DOS: 04/13/25, CT CT AB PEL WO CON-NO ORAL OR IV on DOS: 04/12/25, CT CT AB PEL WO CON- NO ORAL OR IV on DOS: 11/26/24 FINDINGS: Abdomen/Pelvis: The spleen, pancreas, adrenal glands, gallbladder, kidneys, bladder, and prostate gland are grossly unremarkable. There is diffuse hepatic steatosis. The abdominal aorta is normal in course and caliber. There are minimal atherosclerotic calcifications. There is no free intraperitoneal air or fluid. There is no enlarged abdominal pelvic lymph node. There is no bowel wall thickening or dilatation. The appendix is normal. There is a tiny fat containing umbilical hernia. There is mild left colon diverticulosis. Other: The imaged lower thorax is unremarkable. No acute osseous abnormality is evident. Impression: No acute noncontrast CT abnormality in the abdomen or pelvis. Diffuse hepatic steatosis. Mild left colon diverticulosis. ATED BY: TIFF ALEJO MD DICTATED DATE/TIME: 06/09/25 1159 SIGNED BY: TIFF ALEJO MD SIGNED DATE/TIME: 06/09/25 1159 45-year-old male presents here with abdominal pain that he has had for 2 years. He states this morning the pain was significant and his here in the ER. He states he was due to have a colonoscopy recently but missed his preop appointment. At this time he is diffusely tender on my examination to the abdomen. I have ordered a CT abdomen pelvis, CBC, BMP and given him pain medications as well as IV fluids as he has been vomiting. Blood work has returned with multiple abnormalities. Has a normal CBC. Her BMP demonstrates hyponatremia, acute kidney injury hyperglycemia of an elevated bilirubin to 1.8. Urine is positive for ketones concern for dehydration. Given his elevated bilirubin I have ordered an ultrasound of the liver which does demonstrate a dilated common bile duct of 0.93 cm. At this time I am concerned about the patient. Patient will require an MRCP. At this time hospitalist team has been contacted for admission. Time of 1ST Reevaluation: 12:20 Reevaluation 1ST: Unchanged Patient Education/Counseling: Diagnosis, Treatment, Need For Follow Up Family Education/Counseling: No Family Present SEPSIS Sepsis Screen Date sepsis recognized/suspect: Jun 09, 2025 Time Sepsis recognized/suspect: 1020 Recent Procedure: No On Antibiotic Therapy: No Respiratory Rate >20: No Heart Rate >90: Yes Temp<36 C (96.8 F) or >38.3 C: No SBP <90 or MAP <65 mmHG: No New Acute Mental Status Change: No Is the patient on CPAP, BIPAP,: No Physician Orders Ct Ab Pel Wo Con-No Oral Or Iv (06/09/25 10:24) Gallbladder (06/09/25 13:14) Vital Signs Date Time Temp Pulse Resp B/P (MAP) Pulse Ox O2 Delivery O2 Flow Rate FiO2 06/09/25 16:35 78 17 142/82 06/09/25 16:34 78 17 117/80 06/09/25 16:08 83 17 117/80 06/09/25 16:00 98.3 81 18 108/73 (85) 98 98.3 06/09/25 14:00 98.0 80 17 131/83 (99) 99 98.0 06/09/25 12:00 98.2 78 17 125/75 (92) 99 98.2 06/09/25 11:12 80 18 143/86 06/09/25 10:35 100 20 133/99 06/09/25 10:20 98.3 98 26 157/98 (117) 99 98.3 06/09/25 10:20 98 26 99 Room Air* 0 21 06/09/25 10:16 98.3 98 26 157/98 99 98.3 Laboratory Tests Test 06/09/25 11:41 White Blood Count 9.0 10^3/uL (4.4-10.8) Medications Medications Dose Ordered Sig/Adina Route Start Time Stop Time Status Last Admin Dose Admin Hydromorphone HCl 1 mg ONCE ONCE IV 06/09/25 10:30 06/09/25 10:31 DC 06/09/25 10:35 Hydromorphone HCl 1 mg ONCE ONCE IV 06/09/25 16:00 06/09/25 16:01 DC 06/09/25 16:08 Ondansetron HCl 4 mg ONCE ONCE IV 06/09/25 10:30 06/09/25 10:31 DC 06/09/25 10:36 Ondansetron HCl 4 mg ONCE ONCE IV 06/09/25 16:00 06/09/25 16:01 DC 06/09/25 16:07 Sodium Chloride 1,000 ml @ 1,000 mls/hr Q1H ONCE IVB 06/09/25 10:30 06/09/25 11:29 DC 06/09/25 10:36 Departure 1 Departure Time of Disposition: 14:55 Impression: Primary Impression: Common bile duct dilation Additional Impressions: Vomiting Qualified Codes: R11.10 - Vomiting, unspecified Dehydration Acute kidney injury Hyperglycemia Hyperbilirubinemia Glucosuria Disposition: ADMITTED INPATIENT Condition: Fair Critical Care Note Critical Care Time?: No Stability Stability form required: No Heart Score Heart Score: Heart Score Response (Comments) Value History N/A 0 EKG N/A 0 Age N/A 0 Risk Factors N/A 0 Troponin N/A 0 Total 0 I personally scribed for DUNCAN BAUTISTA MD ([email or web address]) on 06/09/25 at 11:54. Electronically submitted by Elsi Garcia ([email or web address]). I personally scribed for DUNCAN BAUTISTA MD ([email or web address]) on 06/09/25 at 12:17. Electronically submitted by Elsi Garcia ([email or web address]). I personally scribed for DUNCAN BAUTISTA MD ([email or web address]) on 06/09/25 at 12:18. Electronically submitted by Elsi Garcia ([email or web address]). I personally scribed for DUNCAN BAUTISTA MD ([email or web address]) on 06/09/25 at 12:20. Electronically submitted by Elsi Garcia ([email or web address]). DUNCAN BAUTISTA MD Jun 09, 2025 11:54
--- NOTE | 2025-06-09 12:02 | DVH ---
CLINICAL HISTORY: Abdominal pain TECHNIQUE: CT of the abdomen and pelvis was performed without IV contrast. This exam was performed ac cording to our departmental dose optimization program. Up-to-date CT equipment and radiation dose red uction techniques are utilized as appropriate. CTDI 12.2 DLP 692 COMPARISON: CT CT AB PEL WO CON-NO ORAL OR IV on DOS: 05/18/25, CT CT AB PEL WO CON-NO ORAL OR IV on D OS: 04/27/25, CT CT ABD PELVIS W CON-ORAL IV on DOS: 04/13/25, CT CT AB PEL WO CON-NO ORAL OR IV on DO S: 04/12/25, CT CT AB PEL WO CON-NO ORAL OR IV on DOS: 11/26/24 FINDINGS: Abdomen/Pelvis: The spleen, pancreas, adrenal glands, gallbladder, kidneys, bladder, and prostate gland are grossly u nremarkable. There is diffuse hepatic steatosis. The abdominal aorta is normal in course and caliber. There are minimal atherosclerotic calcifications . There is no free intraperitoneal air or fluid. There is no enlarged abdominal pelvic lymph node. There is no bowel wall thickening or dilatation. The appendix is normal. There is a tiny fat containi ng umbilical hernia. There is mild left colon diverticulosis. Other: The imaged lower thorax is unremarkable. No acute osseous abnormality is evident. Impression: No acute noncontrast CT abnormality in the abdomen or pelvis. Diffuse hepatic steatosis. Mild left colon diverticulosis.
[2025-06-09 12:16] LABS: Hematocrit 40.1 % (41.0-53.0); Hemoglobin 13.9 g/dL (13.5-17.5); Mean Corpuscular Hemoglobin 28.9 pg (28.0-32.0); Mean Corpuscular Volume 83.6 fL (80.0-100.0); Nucleated Red Blood Cells % 0.0 %
[2025-06-09 12:27] LABS: Alanine Aminotransferase 19 U/L (7-40); Albumin 4.2 g/dL (3.2-4.8); Alkaline Phosphatase 82 U/L (46-116); Anion Gap 9 (5-15); BUN/Creatinine Ratio 21.0 (10.0-20.0); Lipase 32 U/L (12-53); Potassium 3.8 mmol/L (3.5-5.1); Total Protein 7.0 g/dL (5.7-8.2)
[2025-06-09 12:28] LABS: Bilirubin, Total 1.8 mg/dL (0.2-1.0); Blood Urea Nitrogen 29 mg/dL (9-23); Calcium 8.6 mg/dL (8.7-10.4); Carbon Dioxide 31 mmol/L (20-31); Chloride 90 mmol/L (98-107); Glucose 243 mg/dL (74-106); Sodium 130 mmol/L (136-145)
--- NOTE | 2025-06-09 14:22 | DVH ---
INDICATION: Elevated bilirubin 1.8 TECHNIQUE: Multiple real-time sonographic images of the abdomen were obtained. COMPARISON: US LIVER on DOS: 08/06/24, NM NM HIDA SCAN on DOS: 04/17/24, US ABDOMEN COMPLETE SONOGRAM on DOS: 04/14/24 FINDINGS: Echogenic hepatic parenchyma. The liver measures 12.74 cm. No intrahepatic biliary ductal dilatation is noted. The gallbladder wall measures 0.12 cm and is unremarkable. No gallstones or sludge is seen. The co mmon duct measures 0.93 cm and is dilated. No pericholecystic fluid is noted. Granado's sign The right kidney measures 9.91 cm. No hydronephrosis. The pancreas is not well visualized due to obscuration from bowel gas. The visualized portions of the IVC and aorta are grossly unremarkable. IMPRESSION: 1. Dilated common bile duct measuring 0.93 cm. Aerated common bile duct consider MRCP, although CT of the abdomen and pelvis from 05/18/2025 showed normal pancreas no abnormal calcifications. 2. Hepatic steatosis.
[2025-06-09 16:37] LABS: Urine Protein, UAD TRACE (Negative)
[2025-06-09 20:05] VITALS: PULSE 80; RESP 18; O2SAT 97
[2025-06-09] MEDS: SODIUM CHLORIDE 0.9% 1,000 ML IV SCH (20:45)
[2025-06-09] MEDS ORDERED: DOCUSATE SOD 100 MG CAP PO PRN (20:45)
[2025-06-09] MEDS: PANTOPRAZOLE 40 MG/10 ML VIAL INJ IV ONE (20:45)
[2025-06-09] MEDS ORDERED: ACETAMINOPHEN 325 MG TAB PO PRN (20:45)
[2025-06-09] MEDS ORDERED: DEXTROSE (50%) 50ML SYRG IV PRN (20:45)
--- NOTE | 2025-06-09 21:20 | DVHHP2 ---
History of Present Illness Reason for Visit: Acute abdominal pain History of Present Illness The patient is a 45-year-old male with past medical history of diabetes mellitus and hypertension who presented to [facility] ED with complaint of abdominal pain. Patient reports he has been experiencing abdominal pain radiating to his chest, associated with vomiting. He states he has had this pain for 2 years. He was due to have a colonoscopy recently but missed his preop appointment in his here today. Patient was seen and evaluated in the ED, laboratory data shows WBC 9.0, platelets 345, sodium 130, potassium 3.8, BUN 29, creatinine 1.38, glucose 243, calcium 8.6, lipase 32, total bilirubin 1.8, blood pressure 130/78, heart rate 80, temperature 98.1 F, O2 saturation 97% on oxygen. Abdomen/pelvis CT shows no evidence of acute abdominal abnormality; gallbladder ultrasound revealing dilated common bile duct measuring 0.93 cm; consider MRCP. Please see medication orders section in the computer. On my assessment, patient denied chest pain, no headache, no dizziness, abdominal pain at this moment, no diarrhea, no nausea, no vomiting, no fever, no chills. Patient was admitted for further evaluation and medical management. Past Medical History DM, Hypertension Past Surgical History Denies all surgeries Family History Reviewed, noncontributory to the management of this case. Past Social History The patient lives at home, denies smoking, alcohol or illicit drugs abuse. Review of Systems Constitutional: No: Fever, Chills, Sweats, Weakness, Malaise, Other Eyes: No: Pain, Vision change, Conjunctivae inflammation, Eyelid inflammation, Other, Redness ENT: No: Ear pain, Ear discharge, Nose pain, Nose discharge, Nose congestion, Mouth pain, Mouth swelling, Throat pain, Throat swelling, Other Respiratory: No: Cough, Dry, Shortness of breath, SOB with excertion, Wheezing, Hemoptysis, Pleuritic Pain, Sputum, Wheezing, Other Cardiovascular: No: Chest Pain, Palpitations, Orthopnea, Paroxysmal Noc. Dys pnea, Edema, Lt Headedness, Other Gastrointestinal: Nausea, Vomiting, Abdominal Pain, Constipation; No: Diarrhea, Melena, Hematochezia, Other Genitourinary: No Dysuria, No Frequency, No Incontinence, No Hematuria, No Retention, No Other Musculoskeletal: No: other, neck pain, shoulder pain, arm pain, back pain, hand pain, leg pain, foot pain Skin: No: Rash, Lesions, Jaundice, Bruising, Other Neurological: No: Weakness, Numbness, Incoordination, Change in speech, C onfusion, Seizures, Other Allergies: Coded Allergies: NO KNOWN ALLERGIES (Unverified , 09/21/20) Medications Current Medications Medications Dose Ordered Sig/Adina Route Start Time Stop Time Status Last Admin Dose Admin Pantoprazole Sodium 40 mg DAILY IV 06/10/25 10:00 Amlodipine Besylate 5 mg DAILY PO 06/10/25 10:00 Hydralazine HCl 10 mg Q6HP PRN IV 06/09/25 20:45 Diagnostic Test (Pha) 1 strip Q6HR 06/10/25 00:00 Insulin Human Regular Q6HR SC 06/10/25 00:00 Dextrose 50 ml UD PRN IV 06/09/25 20:45 Sodium Chloride 1,000 ml @ 120 mls/hr Q8H20M IV 06/09/25 20:45 Acetaminophen/ Hydrocodone Bitart 1 tab Q4HP PRN PO 06/09/25 20:45 Ondansetron HCl 4 mg Q4HP PRN IV 06/09/25 20:45 Docusate Sodium 100 mg BIDPRN PRN PO 06/09/25 20:45 Acetaminophen 650 mg Q6HP PRN PO 06/09/25 20:45 Morphine Sulfate 2 mg Q4HPRN PRN IV 06/09/25 20:45 Exam Vital Signs Vital Signs Date Time Temp Pulse Resp B/P (MAP) Pulse Ox O2 Delivery O2 Flow Rate FiO2 06/09/25 20:05 98.1 80 18 130/78 (95) 97 98.1 06/09/25 20:05 Nasal Cannula* 2 28 General Appearance: Alert, Oriented X3, Cooperative, No acute distress HEENT: Atraumatic, PERRLA, EOMI, Mucous membr. moist/pink Respiratory: Normal air movement Cardiovascular: Regular rate, Normal S1, Normal S2, No murmurs Abdominal: Normal bowel sounds, Soft, No tenderness, No hepatospenomegaly, No masses Extremities: No clubbing, No cyanosis, No edema, Normal pulses, No tenderness/swelling Skin: No rashes, No significant lesion Neuro: Normal speech, Normal tone, Sensation intact, Cranial nerves 3-12 NL, Reflexes 2+ Psych/Mental Status: Mental status NL, Mood NL Labs/Xrays Labs Test 06/09/25 16:16 06/09/25 16:02 06/09/25 11:41 Range/Units POC Glucose 186 H 70-106 mg/dl Urine Color Yellow Yellow Urine Clarity Clear Clear Urine pH 6.0 5.0-9.0 Urine Specific [place] 1.030 1.001-1.035 Urine Protein Trace H Negative Urine Ketones 1+ H Negative Urine Blood Negative Negative /uL Urine Nitrite Negative Negative Urine Bilirubin Negative Negative Urine Urobilinogen 2 H Negative mg/dL Urine Leukocyte Esterase Negative Negative /uL Urine RBC 1 0 - 3 /hpf Urine Microscopic WBC 1 0-3 /HPF Urine Squamous Epithelial Cells Few <5 /hpf Urine Bacteria None seen None Seen /hpf Urine Glucose 4+ H Normal mg/dL White Blood Count 9.0 4.4-10.8 10^3/uL Red Blood Count 4.80 4.5-5.90 10^6/uL Hemoglobin 13.9 13.5-17.5 g/dL Hematocrit 40.1 L 41.0-53.0 % Mean Corpuscular Volume 83.6 80.0-100.0 fL Mean Corpuscular Hemoglobin 28.9 28.0-32.0 pg Mean Corpuscular Hemoglobin Concent 34.5 32.0-36.0 g/dL Red Cell Distribution Width 13.9 11.8-14.3 % Platelet Count 345 140-450 10^3/uL Mean Platelet Volume 7.0 6.9-10.8 fL Neutrophils (%) (Auto) 80.5 H 37.0-80.0 % Lymphocytes (%) (Auto) 12.8 10.0-50.0 % Monocytes (%) (Auto) 6.4 0.0-12.0 % Eosinophils (%) (Auto) 0.1 0.0-7.0 % Basophils (%) (Auto) 0.2 0.0-2.0 % Neutrophils # (Auto) 7.2 1.6-8.6 10 ^3/uL Lymphocytes # (Auto) 1.1 0.4-5.4 10 ^3/uL Monocytes # (Auto) 0.6 0-1.3 10 ^3/uL Eosinophils # (Auto) 0 0-0.8 10 ^3/uL Basophils # (Auto) 0 0-0.2 10 ^3/uL Nucleated Red Blood Cells 0.0 % Sodium Level 130 L 136-145 mmol/L Potassium Level 3.8 3.5-5.1 mmol/L Chloride Level 90 L 98-107 mmol/L Carbon Dioxide Level 31 20-31 mmol/L Anion Gap 9 5-15 Blood Urea Nitrogen 29 H 9-23 mg/dL Creatinine 1.38 H 0.700-1.30 mg/dL Glomerular Filtration Rate Calc 63 >90 mL/min BUN/Creatinine Ratio 21.0 H 10.0-20.0 Serum Glucose 243 H 74-106 mg/dL Calcium Level 8.6 L 8.7-10.4 mg/dL Total Bilirubin 1.8 H 0.2-1.0 mg/dL Aspartate Amino Transferase (AST) 27 13-40 U/L Alanine Aminotransferase (ALT) 19 7-40 U/L Alkaline Phosphatase 82 46-116 U/L Total Protein 7.0 5.7-8.2 g/dL Albumin 4.2 3.2-4.8 g/dL Lipase 32 12-53 U/L PATIENT: ROB DOUGLAS ACCT: [id number] UNIT: [id number] : 1980 LOC: ER ROOM / BED: / AGE / SEX: 45 / M ADM STATUS: REG ER SERVICE 1024 ORDERING PHYSICIAN: DUNCAN BAUITSTA MD PROCEDURE(s): ABPL - CT AB PEL WO CON-NO ORAL OR IV REASON: Abdominal pain ORDER NUMBER(s): [id number], ACCESSION NUMBER(s): [id number] CLINICAL HISTORY: Abdominal pain TECHNIQUE: CT of the abdomen and pelvis was performed without IV contrast. This exam was performed according to our departmental dose optimization program. Up-to-date CT equipment and radiation dose reduction techniques are utilized as appropriate. CTDI 12.2 DLP 692 COMPARISON: CT CT AB PEL WO CON-NO ORAL OR IV on DOS: 05/18/25, CT CT AB PEL WO CON-NO ORAL OR IV on DOS: 04/27/25, CT CT ABD PELVIS W CON-ORAL IV on DOS: 04/13/25, CT CT AB PEL WO CON-NO ORAL OR IV on DOS: 04/12/25, CT CT AB PEL WO CON- NO ORAL OR IV on DOS: 11/26/24 FINDINGS: Abdomen/Pelvis: The spleen, pancreas, adrenal glands, gallbladder, kidneys, bladder, and prosta te gland are grossly unremarkable. There is diffuse hepatic steatosis. The abdominal aorta is normal in course and caliber. There are minimal atherosclerotic calcifications. There is no free intraperitoneal air or fluid. There is no enlarged abdominal pelvic lymph node. There is no bowel wall thickening or dilatation. The appendix is normal. There is a tiny fat containing umbilical hernia. There is mild left colon diverticulosis. Other: The imaged lower thorax is unremarkable. No acute osseous abnormality is evident. Impression: No acute noncontrast CT abnormality in the abdomen or pelvis. Diffuse hepatic steatosis. Mild left colon diverticulosis. ORDERING PHYSICIAN: DUNCAN BAUTISTA MD PROCEDURE(s): GBUS - GALLBLADDER REASON: Elevated bilirubin 1.8 ORDER NUMBER(s): [id number], ACCESSION NUMBER(s): [id number] INDICATION: Elevated bilirubin 1.8 TECHNIQUE: Multiple real-time sonographic images of the abdomen were obtained. COMPARISON: US LIVER on DOS: 08/06/24, NM NM HIDA SCAN on DOS: 04/17/24, US ABDOMEN COMPLETE SONOGRAM on DOS: 04/14/24 FINDINGS: Echogenic hepatic parenchyma. The liver measures 12.74 cm. No intrahepatic biliary ductal dilatation is noted. The gallbladder wall measures 0.12 cm and is unremarkable. No gallstones or sludge is seen. The common duct measures 0.93 cm and is dilated. No pericholecystic fluid is noted. Granado's sign The right kidney measures 9.91 cm. No hydronephrosis. The pancreas is not well visualized due to obscuration from bowel gas. The visualized portions of the IVC and aorta are grossly unremarkable. IMPRESSION: 1. Dilated common bile duct measuring 0.93 cm. Aerated common bile duct consider MRCP, although CT of the abdomen and pelvis from 05/18/2025 showed normal pancreas no abnormal calcifications. 2. Hepatic steatosis. SEPSIS Sepsis Screen Date sepsis recognized/suspect: Jun 09, 2025 Time Sepsis recognized/suspect: 2010 Recent Procedure: No On Antibiotic Therapy: No Respiratory Rate >20: No Heart Rate >90: No Temp<36 C (96.8 F) or >38.3 C: No SBP <90 or MAP <65 mmHG: No New Acute Mental Status Change: No Is the patient on CPAP, BIPAP,: No Physician Orders Pantoprazole (Protonix) (06/10/25 10:00) * [facility] Helicopter Specialist (06/09/25 20:31) Amlodipine Tablet (Norvasc Tablet) (06/10/25 10:00) Hydralazine Injection (Apresoline Inject (06/09/25 20:45) Glucose Blood (Accu-Chek Comfort Curve T (06/10/25 00:00) Insulin R (Human) (Insulin R) (06/10/25 00:00) Code Status (06/09/25:) Sodium Chloride 0.9% (06/09/25 20:45) Oxygen Per Hour (06/09/25:31) Hydrocodone-Acet 5/325mg Tab (Nixa 5/32 (06/09/25 20:45) Ondansetron Hcl (Zofran) (06/09/25 20:45) Docusate Sodium Capsule (Colace Capsule) (06/09/25 20:45) Complete Blood Count (06/10/25 04:00) Comprehensive Metabolic Panel (06/10/25 04:00) Condition: Serious (06/09/25 20:31) Acetaminophen Tablet (Tylenol Tablet) (06/09/25 20:45) Clear Liq Diet (06/10/25 Breakfast) Bedrest With Bathroom Privileg (06/09/25:) Morphine Sulfate Injection (06/09/25 20:45) Sequential Compression Device (06/09/25 ) Dextrose 50% Syringe (06/09/25 20:45) Allergies (06/09/25 20:31) Vital Signs Date Time Temp Pulse Resp B/P (MAP) Pulse Ox O2 Delivery O2 Flow Rate FiO2 06/09/25 20:05 98.1 80 18 130/78 (95) 97 98.1 06/09/25 20:05 80 18 97 Nasal Cannula* 2 28 06/09/25 18:00 98.1 78 20 143/73 (96) 95 98.1 06/09/25 16:35 78 17 142/82 06/09/25 16:34 78 17 117/80 06/09/25 16:08 83 17 117/80 06/09/25 16:00 98.3 81 18 108/73 (85) 98 98.3 06/09/25 14:00 98.0 80 17 131/83 (99) 99 98.0 Laboratory Tests Test 06/09/25 11:41 White Blood Count 9.0 10^3/uL (4.4-10.8) Medications Medications Dose Ordered Sig/Adina Route Start Time Stop Time Status Last Admin Dose Admin Hydromorphone HCl 1 mg ONCE ONCE IV 06/09/25 10:30 06/09/25 10:31 DC 06/09/25 10:35 1 MG Hydromorphone HCl 1 mg ONCE ONCE IV 06/09/25 16:00 06/09/25 16:01 DC 06/09/25 16:08 1 MG Ondansetron HCl 4 mg ONCE ONCE IV 06/09/25 10:30 06/09/25 10:31 DC 06/09/25 10:36 4 MG Ondansetron HCl 4 mg ONCE ONCE IV 06/09/25 16:00 06/09/25 16:01 DC 06/09/25 16:07 4 MG Sodium Chloride 1,000 ml @ 1,000 mls/hr Q1H ONCE IVB 06/09/25 10:30 06/09/25 11:29 DC 06/09/25 10:36 1,000 MLS/HR Assessment/Plan Assessment/Plan Acute abdominal pain Acute kidney injury Vomiting, unspecified Dehydration Common bile duct dilation Hyperbilirubinemia Diabetes mellitus with hyperglycemia Plan 1. Admit to med surge unit 2. Breathing treatment 3. Pain control management 4. Management of fluids and electrolytes 5. Consultation for hospitalist 6. Diagnostic tests abdomen/pelvis CT 7. DVT prophylaxis-on SCDs 8. Repeat labs CBC, CMP in a.m. 9. Continue with current medical management 10. Treatment plan discussed with patient and RN. Patient verbalized understanding. Plan discussed with: Patient, Other (RN) My Orders Orders - BURAK PAULINO DNP Procedure Category Date Status Time Pantoprazole PHA 06/10/25 In Process (Protonix) 10:00 * [facility] [employer] Specialist CONS 06/09/25 Transmitted 20:31 Amlodipine Tablet PHA 06/10/25 In Process (Norvasc Tablet) 10:00 Hydralazine Injection PHA 06/09/25 In Process (Apresoline Inject 20:45 Glucose Blood PHA 06/10/25 In Process (Accu-Chek Comfort 00:00 Insulin R (Human) PHA 06/10/25 In Process (Insulin R) 00:00 Code Status CODE 06/09/25 Transmitted 20:31 Sodium Chloride 0.9% PHA 06/09/25 In Process 20:45 Oxygen Per Hour RT 06/09/25 Transmitted 20:31 Hydrocodone-Acet PHA 06/09/25 In Process 5/325mg Tab (Nixa 20:45 Ondansetron Hcl PHA 06/09/25 In Process (Zofran) 20:45 Docusate Sodium PHA 06/09/25 In Process Capsule (Colace 20:45 Complete Blood Count LAB 06/10/25 Verified 04:00 Comprehensive LAB 06/10/25 Verified Metabolic Panel 04:00 Condition: Serious LUKE 06/09/25 In Process 20:31 Acetaminophen Tablet PHA 06/09/25 In Process (Tylenol Tablet) 20:45 Clear Liq Diet DIET 06/10/25 Transmitted Breakfast Bedrest With Bathroom LUKE 06/09/25 In Process Privileg 20:31 Morphine Sulfate PHA 06/09/25 In Process Injection 20:45 Sequential LUKE 06/09/25 In Process Compression Device Dextrose 50% Syringe PHA 06/09/25 In Process 20:45 Allergies LUKE 06/09/25 Verified 20:31 Problem List: (1) Acute abdominal pain (2) Acute kidney injury (3) Vomiting, unspecified (4) Dehydration (5) Common bile duct dilation (6) Hyperbilirubinemia (7) Diabetes mellitus with hyperglycemia Date of Service: Jun 09, 2025 Billing Provider: BURAK PAULINO DNP Common Visit Codes: [id number] INP/OBS CARE (HIGH) BURAK PAULINO DNP Jun 09, 2025 21:20
[2025-06-09] MEDS ORDERED: MORPHINE SULFATE INJ 2 MG/ml SYRG IV PRN (21:30)
[2025-06-09] MEDS ORDERED: NITROGLYCERIN 0.4 MG SL TAB SL PRN (21:30)
[2025-06-09] MEDS: MORPHINE SULFATE INJ 2 MG/ml SYRG IV PRN (21:42)
[2025-06-09] MEDS: ONDANSETRON HCL 4 MG/2 ML VIAL IV PRN (21:43)
[2025-06-09 22:10] VITALS: BP 145/96; PULSE 77; RESP 17; TEMP 98.1; O2SAT 100
[2025-06-09] MEDS: HYDROcodone-ACET 5/325MG TAB PO PRN (22:33)
[2025-06-09 22:40] VITALS: PULSE 75; RESP 18
[2025-06-10] VITALS (7 sets, daily range): BP systolic 114–156; BP diastolic 73–90; PULSE 76–86; RESP 17–18; TEMP 96.5–98.3; O2SAT 97–100
[2025-06-10] MEDS: InsuLIN REG 1unit/0.01ml Soln (100units/ml) SC SCH
[2025-06-10] MEDS: ACCU-CHEK COMFORT CURVE STRIP VI SCH (00:50)
[2025-06-10 05:16] LABS: Hematocrit 39.5 % (41.0-53.0); Hemoglobin 13.7 g/dL (13.5-17.5); Mean Corpuscular Hemoglobin 29.2 pg (28.0-32.0); Mean Corpuscular Volume 84.1 fL (80.0-100.0); Nucleated Red Blood Cells % 0.1 %
[2025-06-10 05:27] LABS: Alanine Aminotransferase 19 U/L (7-40); Albumin 4.0 g/dL (3.2-4.8); Alkaline Phosphatase 76 U/L (46-116); Anion Gap 9 (5-15); BUN/Creatinine Ratio 16.2 (10.0-20.0); Blood Urea Nitrogen 17 mg/dL (9-23); Calcium 8.8 mg/dL (8.7-10.4); Glucose 81 mg/dL (74-106); Total Protein 6.7 g/dL (5.7-8.2)
[2025-06-10 05:38] LABS: Sodium 133 mmol/L (136-145)
[2025-06-10 05:39] LABS: Bilirubin, Total 1.4 mg/dL (0.2-1.0); Carbon Dioxide 32 mmol/L (20-31); Chloride 92 mmol/L (98-107); Potassium 3.4 mmol/L (3.5-5.1)
[2025-06-10] MEDS: hydrALAZINE HCL 20 MG/ML VL IV PRN (06:49)
[2025-06-10] MEDS: PANTOPRAZOLE 40 MG/10 ML VIAL INJ IV SCH (09:07)
--- NOTE | 2025-06-10 11:08 | DVHPN2 ---
Subjective Patient continues to report having generalized abdominal pain, focal in his epigastric with radiation to his chest. Reviewed: Care Plan, H&P, Labs, Medications Changes from previous H/P or p: No Changes Eyes: No Pain, No Vision change, No Conjunctivae inflammation, No Eyelid inflammation, No Other, No Redness ENT: No Ear pain, No Ear discharge, No Nose pain, No Nose discharge, No Nose congestion, No Mouth pain, No Mouth swelling, No Throat pain, No Throat swelling, No Other Cardiovascular: No Chest Pain, No Palpitations, No Orthopnea, No Paroxysmal Noc. Dyspnea, No Edema, No Lt Headedness, No Other Respiratory: No Cough, No Dry, No Shortness of breath, No SOB with excertion, No Wheezing, No Hemoptysis, No Pleuritic Pain, No Sputum, No Other Gastrointestinal: Nausea, Vomiting, Abdominal Pain; No Diarrhea; Constipation; No Melena, No Hematochezia, No Other Genitourinary: No Dysuria, No Frequency, No Incontinence, No Hematuria, No Retention, No Other Musculoskeletal: No other, No neck pain, No shoulder pain, No arm pain, No back pain, No hand pain, No leg pain, No foot pain Skin: No Rash, No Lesions, No Jaundice, No Bruising, No Other Objective Vitals Vital Signs Date Time Temp Pulse Resp B/P (MAP) Pulse Ox O2 Delivery O2 Flow Rate FiO2 06/10/25 09:09 140/71 06/10/25 09:00 96.5 83 18 100 96.5 06/09/25 22:40 Room Air* 2 N/A Nasal Cannula* Intake/Output Intake and Output 06/10/25 07:00 Intake Total 1900 ml Balance 1900 ml Intake Oral 900 ml IV Total 1000 ml # Voids 1 General Appearance: Alert, Oriented X3, Cooperative, mild distress HEENT: Atraumatic, PERRLA Cardiovascular: Normal S1, Normal S2 Abdomen: Normal bowel sounds, Soft Musculoskeletal: Normal sensory function, Normal motor function Skin: Dry, Intact Psych/Mental Status: Mental status NL, Mood NL Medications Current Medications Medications Dose Ordered Sig/Adina Route Start Time Stop Time Status Last Admin Dose Admin Pantoprazole Sodium 40 mg DAILY IV 06/10/25 10:00 06/10/25 09:07 40 MG Amlodipine Besylate 5 mg DAILY PO 06/10/25 10:00 06/10/25 09:09 5 MG Hydralazine HCl 10 mg Q6HP PRN IV 06/09/25 20:45 06/10/25 06:49 10 MG Diagnostic Test (Pha) 1 strip Q6HR 06/10/25 00:00 06/10/25 11:03 1 STRIP Insulin Human Regular Q6HR SC 06/10/25 00:00 06/10/25 06:00 2 UNITS Dextrose 50 ml UD PRN IV 06/09/25 20:45 Acetaminophen/ Hydrocodone Bitart 1 tab Q4HP PRN PO 06/09/25 20:45 06/10/25 09:08 1 TAB Ondansetron HCl 4 mg Q4HP PRN IV 06/09/25 20:45 06/09/25 21:43 4 MG Docusate Sodium 100 mg BIDPRN PRN PO 06/09/25 20:45 Acetaminophen 650 mg Q6HP PRN PO 06/09/25 20:45 Morphine Sulfate 2 mg Q4HPRN PRN IV 06/09/25 20:45 06/10/25 06:48 2 MG Nitroglycerin 0.4 mg Q5MINP PRN SL 06/09/25 21:30 Morphine Sulfate 2 mg Q30M PRN IV 06/09/25 21:30 Potassium Chloride/Sodium Chloride 1,000 ml @ 75 mls/hr [id number] IV 06/10/25 11:00 Laboratory Results Laboratory Tests 06/10/25 04:52 Chemistry Test 06/09/25 11:41 06/10/25 04:52 Albumin 4.2 g/dL (3.2-4.8) 4.0 g/dL (3.2-4.8) Calcium Level 8.6 mg/dL (8.7-10.4) L 8.8 mg/dL (8.7-10.4) Total Protein 7.0 g/dL (5.7-8.2) 6.7 g/dL (5.7-8.2) Lipid panel Test 06/09/25 11:41 Lipase 32 U/L (12-53) LFT Test 06/09/25 11:41 06/10/25 04:52 Alanine Aminotransferase (ALT) 19 U/L (7-40) 19 U/L (7-40) Alkaline Phosphatase 82 U/L (46-116) 76 U/L (46-116) Aspartate Amino Transferase (AST) 27 U/L (13-40) 27 U/L (13-40) Total Bilirubin 1.8 mg/dL (0.2-1.0) H 1.4 mg/dL (0.2-1.0) H Urinalysis Test 06/09/25 16:02 Urine Color Yellow (Yellow) Urine Clarity Clear (Clear) Urine pH 6.0 (5.0-9.0) Urine Specific [place] 1.030 (1.001-1.035) Urine Protein Trace (Negative) H Urine Ketones 1+ (Negative) H Urine Blood Negative /uL (Negative) Urine Nitrite Negative (Negative) Urine Bilirubin Negative (Negative) Urine Urobilinogen 2 mg/dL (Negative) H Urine Leukocyte Esterase Negative /uL (Negative) Urine RBC 1 /hpf (0 - 3) Urine Microscopic WBC 1 /HPF (0-3) Urine Squamous Epithelial Cells Few /hpf (<5) Urine Bacteria None seen /hpf (None Seen) Urine Glucose 4+ mg/dL (Normal) H Labs and/or images reviewed: Labs reviewed by me, Image(s) reviewed by me Assessment/Plan Assessment/Plan Impression: -abdominal pain with CBD dilatation, rule out choledocholithiasis -gastritis -diabetes mellitus -history of polysubstance abuse -primary hypertension Plan: -MRCP if the surgical hardware is compatible -pain management -potassium replacement -IV hydration -continue with clear liquid diet -PPI -repeat labs in a.m. Total time spent with patient discussing and formulating plan of care: 35 minutes. This medical document was created using an electronic medical record system with [employer] dictation system. Although this document has been carefully reviewed, there may still be some phonetic and typographical errors. These areas are purely typographical due to imperfections of the software programs, and do not reflect any compromise in the patient's medical care. Plan discussed with: Patient, Other (RN) My Orders Orders - LAKEISHA BISWAS NP Procedure Category Date Status Time Sod Chl 0.9%/ Kcl PHA 06/10/25 In Process 20meq 11:00 Mrcp Mri MRI 06/10/25 Logged 10:55 Date of Service: Jun 10, 2025 Billing Provider: LAKEISHA BISWAS NP Common Visit Codes: [id number] INP/OBS CARE(HIGH) LAKEISHA BISWAS NP Jun 10, 2025 11:08
[2025-06-10 12:27] LABS: Benzodiazephine Screen, Urine Pos (NEGATIVE); Cannabinoid Screen, Urine Pos (NEGATIVE); Opiate Scree,Urine Neg (NEGATIVE)
[2025-06-10 12:29] LABS: Amphetamine Screen, Urine Neg (NEGATIVE); Barbiturate Scree,Urine Neg (NEGATIVE); Cocaine Screen, Urine Neg (NEGATIVE); Phencyclidine Screen, Urine Neg (NEGATIVE)
[2025-06-10] MEDS: SOD CHL 0.9%/ KCL 20MEQ 1,000 ML IV SCH (12:52)
--- NOTE | 2025-06-10 20:53 | DVHINCON2 ---
Date of service: Jun 10, 2025 Referring Physician Juan Reason for Consultation Abdominal pain History of Present Illness The patient is a 45-year-old male with past medical history of diabetes mellitus and hypertension who presented to [facility] ED with complaint of abdominal pain. Patient reports he has been experiencing abdominal pain radiating to his chest, associated with vomiting. He states he has had this pain for 2 years. He was due to have a colonoscopy recently but missed his preop appointment in his here today. Patient was seen and evaluated in the ED, laboratory data shows WBC 9.0, platelets 345, sodium 130, potassium 3.8, BUN 29, creatinine 1.38, glucose 243, calcium 8.6, lipase 32, total bilirubin 1.8, blood pressure 130/78, heart rate 80, temperature 98.1 F, O2 saturation 97% on oxygen. Abdomen/pelvis CT shows no evidence of acute abdominal abnormality; gallbladder ultrasound revealing dilated common bile duct measuring 0.93 cm; consider MRCP. Please see medication orders section in the computer. On my assessment, patient denied chest pain, no headache, no dizziness, abdominal pain at this moment, no diarrhea, no nausea, no vomiting, no fever, no chills. Patient was admitted for further evaluation and medical management. Past Medical History Past Medical History DM, Hypertension Past Surgical History Past Surgical History Denies all surgeries EGD negative x 2 02/10 and 04/13 Family History: Alzheimer's disease G8 FATHER Diabetes mellitus G8 MOTHER G8 FATHER G8 BROTHER FH: lung cancer G8 MOTHER, Onset:Unknown Social History The patient lives at home, denies smoking, alcohol or illicit drugs abuse. Allergies: Coded Allergies: NO KNOWN ALLERGIES (Unverified , 09/21/20) Home Meds Active Scripts Pantoprazole Sodium Sesquihydr (Protonix) 40 Mg Tab, 40 MG PO DAILY for 7 Days, #7 TAB Prov:REJI SANTIAGO MD 05/18/25 Metoclopramide HCl (Metoclopramide Hydrochlor) 10 Mg Tab, 10 MG PO BID for 10 Days, #20 TAB 0 Refills Prov:THOMAS ADAMS 04/18/25 Pantoprazole Sodium Sesquihydr (Pantoprazole Sodium) 40 Mg Tab, 40 MG PO DAILY for 30 Days, #30 TAB 0 Refills Prov:THOMAS ADAMS 04/18/25 Mupirocin (Pseudomonas Fluores (Mupirocin) 2 % Oin, 2 % EX BID for 30 Days, #1 OIN Prov:JOSÉ LUIS VAUGHAN MD 03/21/25 Blood Glucose Monitoring Suppl (Zakaz.uaUCH VERIO REFLECT w/Device) 1 Kit Kit, KIT XX TIDWM PRN, #1 Prov:JOSÉ LUIS VAUGHAN MD 03/21/25 Amlodipine Besylate (NORVASC TABLET) 5 Mg Tb, 5 MG PO DAILY for 30 Days, #30 TAB 5 Refills Prov:LORRAINE ACEVEDO MD 01/23/25 Sucralfate (CARAFATE SUSP) 1 Gm/10 Ml Ss, 1 GM PO BID@0600,2200 for 14 Days, #10 ML 5 Refills Prov:LORRAINE ACEVEDO MD 01/23/25 Insulin Glargine (Lantus) 100 Unit/Ml Inj, 80 UNIT SC HS for 96 Days, #10 ML 5 Refills Prov:LORRAINE ACEVEDO MD 01/23/25 Alum & Mag Hydrox-Simethicone (Gi Cocktail) 55 Ml Ss, 55 ML PO TID for 30 Days, #1 ML Prov:[facility] 01/03/25 Alum & Mag Hydrox-Simethicone (Gi Cocktail) 55 Ml Ss, 55 ML PO BID for 10 Days, #1 ML Prov:[facility] 01/02/25 Ergocalciferol (VITAMIN D 04421 UNIT) 50,000 [place], [address] UNIT PO QWEEKLY for 30 Days, #4 CAP Prov:[facility] 11/28/24 Acetaminophen (Acetaminophen) 325 Mg Tab, 650 MG PO Q6HP PRN for 30 Days, #240 TAB Prov:[facility] 11/28/24 Reported Medications Pramipexole Dihydrochloride (MIRAPEX ER) 3.75 Mg Tab, 3.75 MG PO, TAB 04/12/25 Current Medications Current Medications Medications (Trade) Dose Ordered Sig/Adina Route PRN Reason Start Time Stop Time Status Last Admin Pantoprazole Sodium (Protonix) 40 mg DAILY IV 06/10/25 10:00 06/10/25 09:07 Amlodipine Besylate (Norvasc Tablet) 5 mg DAILY PO 06/10/25 10:00 06/10/25 09:09 Diagnostic Test (Pha) (Accu-Chek Comfort Curve T) 1 strip Q6HR 06/10/25 00:00 06/10/25 18:00 Insulin Human Regular (InsuLIN R) Q6HR SC 06/10/25 00:00 06/10/25 18:35 Nitroglycerin (Ntrostat Sublingual) 0.4 mg Q5MINP PRN SL FOR CHEST PAIN 06/09/25 21:30 Morphine Sulfate 2 mg Q30M PRN IV FOR CHEST PAIN 06/09/25 21:30 Potassium Chloride/Sodium Chloride 1,000 ml @ 75 mls/hr [id number] IV 06/10/25 11:00 06/10/25 12:52 Vital Signs Vital Signs Date Time Temp Pulse Resp B/P (MAP) Pulse Ox O2 Delivery O2 Flow Rate FiO2 06/10/25 17:00 98.2 83 17 133/87 (102) 100 98.2 06/10/25 08:00 Nasal Cannula* 2 28 Physical Exam General Appearance: Alert, Oriented X3, Cooperative, No acute distress HEENT: Atraumatic, PERRLA, EOMI, Mucous membr. moist/pink Respiratory: Normal air movement Cardiovascular: Regular rate, Normal S1, Normal S2, No murmurs Abdominal: Normal bowel sounds, Soft, No tenderness, No hepatospenomegaly, No masses Extremities: No clubbing, No cyanosis, No edema, Normal pulses, No tenderness/swelling Skin: No rashes, No significant lesion Neuro: Normal speech, Normal tone, Sensation intact, Cranial nerves 3-12 NL, Reflexes 2+ Psych/Mental Status: Mental status NL, Mood NL Labs/Diagnostic Data Labs Test 06/10/25 18:01 06/10/25 04:52 06/09/25 16:02 06/09/25 11:41 Range/Units POC Glucose 173 H 70-106 mg/dl White Blood Count 6.9 4.4-10.8 10^3/uL Red Blood Count 4.70 4.5-5.90 10^6/uL Hemoglobin 13.7 13.5-17.5 g/dL Hematocrit 39.5 L 41.0-53.0 % Mean Corpuscular Volume 84.1 80.0-100.0 fL Mean Corpuscular Hemoglobin 29.2 28.0-32.0 pg Mean Corpuscular Hemoglobin Concent 34.7 32.0-36.0 g/dL Red Cell Distribution Width 13.9 11.8-14.3 % Platelet Count 328 140-450 10^3/uL Mean Platelet Volume 6.8 L 6.9-10.8 fL Neutrophils (%) (Auto) 53.7 37.0-80.0 % Lymphocytes (%) (Auto) 34.5 10.0-50.0 % Monocytes (%) (Auto) 10.0 0.0-12.0 % Eosinophils (%) (Auto) 1.3 0.0-7.0 % Basophils (%) (Auto) 0.5 0.0-2.0 % Neutrophils # (Auto) 3.7 1.6-8.6 10 ^3/uL Lymphocytes # (Auto) 2.4 0.4-5.4 10 ^3/uL Monocytes # (Auto) 0.7 0-1.3 10 ^3/uL Eosinophils # (Auto) 0.1 0-0.8 10 ^3/uL Basophils # (Auto) 0 0-0.2 10 ^3/uL Nucleated Red Blood Cells 0.1 % Sodium Level 133 L 136-145 mmol/L Potassium Level 3.4 L 3.5-5.1 mmol/L Chloride Level 92 L 98-107 mmol/L Carbon Dioxide Level 32 H 20-31 mmol/L Anion Gap 9 5-15 Blood Urea Nitrogen 17 # 9-23 mg/dL Creatinine 1.05 0.700-1.30 mg/dL Glomerular Filtration Rate Calc 88 >90 mL/min BUN/Creatinine Ratio 16.2 10.0-20.0 Serum Glucose 81 # 74-106 mg/dL Calcium Level 8.8 8.7-10.4 mg/dL Total Bilirubin 1.4 H 0.2-1.0 mg/dL Aspartate Amino Transferase (AST) 27 13-40 U/L Alanine Aminotransferase (ALT) 19 7-40 U/L Alkaline Phosphatase 76 46-116 U/L Total Protein 6.7 5.7-8.2 g/dL Albumin 4.0 3.2-4.8 g/dL Urine Color Yellow Yellow Urine Clarity Clear Clear Urine pH 6.0 5.0-9.0 Urine Specific [place] 1.030 1.001-1.035 Urine Protein Trace H Negative Urine Ketones 1+ H Negative Urine Blood Negative Negative /uL Urine Nitrite Negative Negative Urine Bilirubin Negative Negative Urine Urobilinogen 2 H Negative mg/dL Urine Leukocyte Esterase Negative Negative /uL Urine RBC 1 0 - 3 /hpf Urine Microscopic WBC 1 0-3 /HPF Urine Squamous Epithelial Cells Few <5 /hpf Urine Bacteria None seen None Seen /hpf Urine Glucose 4+ H Normal mg/dL Lipase 32 12-53 U/L Test 06/09/25 10:24 Range/Units Urine Opiates Screen Neg NEGATIVE Urine Fentanyl Screen Neg NEGATIVE Urine Barbiturates Screen Neg NEGATIVE Urine Phencyclidine Screen Neg NEGATIVE Urine Amphetamines Screen Neg NEGATIVE Urine Benzodiazepines Screen Pos NEGATIVE Urine Cocaine Screen Neg NEGATIVE Urine Cannabinoids Screen Pos NEGATIVE Microbiology Date/Time Source Procedure Growth Status 06/09/25 23:59 Nose MRSA Screen - Final Complete GB USG IMPRESSION: 1. Dilated common bile duct measuring 0.93 cm. Aerated common bile duct consider MRCP, although CT of the abdomen and pelvis from 05/18/2025 showed normal pancreas no abnormal calcifications. 2. Hepatic steatosis. CT SCAN ABD PELVIS No acute osseous abnormality is evident. Impression: No acute noncontrast CT abnormality in the abdomen or pelvis. Diffuse hepatic steatosis. Mild left colon diverticulosis. 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
[2025-06-11 01:00] VITALS: BP 112/79; PULSE 84; RESP 17; TEMP 98.5; O2SAT 98
[2025-06-11 05:00] VITALS: BP 142/93; PULSE 79; RESP 17; TEMP 97.5; O2SAT 100
[2025-06-11 06:42] LABS: Alanine Aminotransferase 20 U/L (7-40); Albumin 3.4 g/dL (3.2-4.8); Alkaline Phosphatase 68 U/L (46-116); Anion Gap 7 (5-15); BUN/Creatinine Ratio 9.8 (10.0-20.0); Bilirubin, Total 0.7 mg/dL (0.2-1.0); Carbon Dioxide 29 mmol/L (20-31); Chloride 99 mmol/L (98-107); Total Protein 5.8 g/dL (5.7-8.2)
[2025-06-11 06:43] LABS: Blood Urea Nitrogen 9 mg/dL (9-23); Calcium 7.9 mg/dL (8.7-10.4); Glucose 216 mg/dL (74-106); Potassium 3.4 mmol/L (3.5-5.1); Sodium 135 mmol/L (136-145)
[2025-06-11 08:41] VITALS: BP 127/77; PULSE 81; RESP 17; TEMP 98.2; O2SAT 100
[2025-06-11] MEDS ORDERED: DICY10CA PO (11:00)
--- NOTE | 2025-06-11 11:06 | DVHDS2 ---
Discharge Summary Date of Admission Jun 09, 2025 at 21:19 Date of Discharge: Jun 11, 2025 Admitting Diagnosis Acute abdominal pain Labs/Diagnostic Data: Laboratory Results Test 06/11/25 06:05 06/11/25 05:42 06/10/25 04:52 06/09/25 16:02 POC Glucose 206 mg/dl (70-106) Sodium Level 135 mmol/L (136-145) Potassium Level 3.4 mmol/L (3.5-5.1) Chloride Level 99 mmol/L (98-107) Carbon Dioxide Level 29 mmol/L (20-31) Anion Gap 7 (5-15) Blood Urea Nitrogen 9 mg/dL (9-23) Creatinine 0.92 mg/dL (0.700-1.30) Glomerular Filtration Rate Calc 103 mL/min (>90) BUN/Creatinine Ratio 9.8 (10.0-20.0) Serum Glucose 216 mg/dL (74-106) Calcium Level 7.9 mg/dL (8.7-10.4) Total Bilirubin 0.7 mg/dL (0.2-1.0) Aspartate Amino Transferase (AST) 21 U/L (13-40) Alanine Aminotransferase (ALT) 20 U/L (7-40) Alkaline Phosphatase 68 U/L (46-116) Total Protein 5.8 g/dL (5.7-8.2) Albumin 3.4 g/dL (3.2-4.8) White Blood Count 6.9 10^3/uL (4.4-10.8) Red Blood Count 4.70 10^6/uL (4.5-5.90) Hemoglobin 13.7 g/dL (13.5-17.5) Hematocrit 39.5 % (41.0-53.0) Mean Corpuscular Volume 84.1 fL (80.0-100.0) Mean Corpuscular Hemoglobin 29.2 pg (28.0-32.0) Mean Corpuscular Hemoglobin Concent 34.7 g/dL (32.0-36.0) Red Cell Distribution Width 13.9 % (11.8-14.3) Platelet Count 328 10^3/uL (140-450) Mean Platelet Volume 6.8 fL (6.9-10.8) Neutrophils (%) (Auto) 53.7 % (37.0-80.0) Lymphocytes (%) (Auto) 34.5 % (10.0-50.0) Monocytes (%) (Auto) 10.0 % (0.0-12.0) Eosinophils (%) (Auto) 1.3 % (0.0-7.0) Basophils (%) (Auto) 0.5 % (0.0-2.0) Neutrophils # (Auto) 3.7 10 ^3/uL (1.6-8.6) Lymphocytes # (Auto) 2.4 10 ^3/uL (0.4-5.4) Monocytes # (Auto) 0.7 10 ^3/uL (0-1.3) Eosinophils # (Auto) 0.1 10 ^3/uL (0-0.8) Basophils # (Auto) 0 10 ^3/uL (0-0.2) Nucleated Red Blood Cells 0.1 % Urine Color Yellow (Yellow) Urine Clarity Clear (Clear) Urine pH 6.0 (5.0-9.0) Urine Specific [place] 1.030 (1.001-1.035) Urine Protein Trace (Negative) Urine Ketones 1+ (Negative) Urine Blood Negative /uL (Negative) Urine Nitrite Negative (Negative) Urine Bilirubin Negative (Negative) Urine Urobilinogen 2 mg/dL (Negative) Urine Leukocyte Esterase Negative /uL (Negative) Urine RBC 1 /hpf (0 - 3) Urine Microscopic WBC 1 /HPF (0-3) Urine Squamous Epithelial Cells Few /hpf (<5) Urine Bacteria None seen /hpf (None Seen) Urine Glucose 4+ mg/dL (Normal) Test 06/09/25 11:41 06/09/25 10:24 Lipase 32 U/L (12-53) Urine Opiates Screen Neg (NEGATIVE) Urine Fentanyl Screen Neg (NEGATIVE) Urine Barbiturates Screen Neg (NEGATIVE) Urine Phencyclidine Screen Neg (NEGATIVE) Urine Amphetamines Screen Neg (NEGATIVE) Urine Benzodiazepines Screen Pos (NEGATIVE) Urine Cocaine Screen Neg (NEGATIVE) Urine Cannabinoids Screen Pos (NEGATIVE) Other Laboratory Tests 06/11/25 05:42 06/10/25 04:52 Brief Hx & Hospital Course: History of Present Illness The patient is a 45-year-old male with past medical history of diabetes mellitus and hypertension who presented to [facility] ED with complaint of abdominal pain. Patient reports he has been experiencing abdominal pain radiating to his chest, associated with vomiting. He states he has had this pain for 2 years. He was due to have a colonoscopy recently but missed his preop appointment in his here today. Patient was seen and evaluated in the ED, laboratory data shows WBC 9.0, platelets 345, sodium 130, potassium 3.8, BUN 29, creatinine 1.38, glucose 243, calcium 8.6, lipase 32, total bilirubin 1.8, blood pressure 130/78, heart rate 80, temperature 98.1 F, O2 saturation 97% on oxygen. Abdomen/pelvis CT shows no evidence of acute abdominal abnormality; gallbladder ultrasound revealing dilated common bile duct measuring 0.93 cm; consider MRCP. Please see medication orders section in the computer. On my assessment, patient denied chest pain, no headache, no dizziness, abdominal pain at this moment, no diarrhea, no nausea, no vomiting, no fever, no chills. Patient was admitted for further evaluation and medical management. Course of hospitalization: Patient has CT scan of the abdomen and pelvis with CBD having some dilatation. GI consultation was placed. MRCP was ordered, with the patient stating that he can not have MRI because of hardware that was placed in his neck. LFTs are normal. Patient was tolerating oral intake. Patient we will be discharged home, instructed to follow up with his PCP and obtain referral to different GI group for possible ERCP. Patient was agreeable with discharge plan. All questions answered. Physical examination General: Alert and Oriented x3. No acute distress. Well-nourished. Eyes: EOMI. Anicteric. HENT: Moist mucous membranes. Lungs: Clear to auscultation bilaterally. No accessory muscle use. Cardiovascular: Regular rate and rhythm. No murmur. No JVD. Abdomen: Soft, non-tender and non-distended. No palpable masses. Extremities: No edema. Non-tender. Skin: No rashes or lesions. Warm. Neurologic: No focal neurological deficits. CN II-XII grossly intact, but not individually tested. Psychiatric: Cooperative. Appropriate mood and affect. Total time spent with patient discussing and formulating plan of care: 35 minutes. This medical document was created using an electronic medical record system with [employer] dictation system. Although this document has been carefully reviewed, there may still be some phonetic and typographical errors. These areas are purely typographical due to imperfections of the software programs, and do not reflect any compromise in the patient's medical care. Condition at Discharge: Fair Final Diagnosis/Problems List Abdominal pain -abdominal pain with CBD dilatation, ruled out choledocholithiasis -gastritis -diabetes mellitus -history of polysubstance abuse -primary hypertension Discharge Disposition: Home Discharge Instruct/Medications Diet: Regular Activity: No Restrictions, As Tolerated Follow Up/Referral: Recommended to follow up with PCP and obtain referral for outpatient ERCP Medications: Bentyl 10 mg PO TID prn abdominal pain Continue all home medications Scheduled Alum & Mag Hydrox-Simethicone (Gi Cocktail), 55 ML PO BID Alum & Mag Hydrox-Simethicone (Gi Cocktail), 55 ML PO TID Amlodipine Besylate (Norvasc Tablet), 5 MG PO DAILY Dicyclomine Hcl (Bentyl Capsule), 1 CAP PO TID Ergocalciferol (Vitamin D 46889 Unit), 50,000 UNIT PO QWEEKLY Insulin Glargine (Lantus), 80 UNIT SC HS Metoclopramide HCl (Metoclopramide Hydrochlor), 10 MG PO BID Mupirocin (Pseudomonas Fluores (Mupirocin), 2 % EX BID Pantoprazole Sodium Sesquihydr (Pantoprazole Sodium), 40 MG PO DAILY Pantoprazole Sodium Sesquihydr (Protonix), 40 MG PO DAILY Sucralfate (Carafate Susp), 1 GM PO BID@0600,2200 Scheduled PRN Acetaminophen (Acetaminophen), 650 MG PO Q6HP PRN Miscellaneous Medications Pramipexole Dihydrochloride (Mirapex Er), 3.75 MG PO, (Reported) Durable Medical Equipment Blood Glucose Monitoring Suppl (PrintToPeerUCH VERIO REFLECT w/Device), KIT XX TIDWM PRN, (DME) 36 Discharge Statement: "Patient was advised to return to the ER or call 911 if any headaches, dizziness, shortness of breath, chest pain, abdominal pain, bleeding, fevers, or worsening of medical condition. Patient was counseled about treatment plan, medications, possible side effects, patientverbalized understanding. All questions were answered to the best of my ability. This discharge took greater then 30 minutes in planning, reviewing documentation, counseling the patient, and discussing with other team members." ASSESSMENT ASSESSMENT Assessment Abdominal pain Date of Service: Jun 11, 2025 Billing Provider: LAKEISHA BISWAS NP Common Visit Codes: 39405-XYM/OBS DISCH DAY >30min LAKEISHA BISWAS NP Jun 11, 2025 11:06
[2025-06-11 11:46] VITALS: BP 127/77; PULSE 81; RESP 17; TEMP 98.2; O2SAT 100
[2025-06-11 12:51] VITALS: BP 131/92; PULSE 83; RESP 17; TEMP 97.9; O2SAT 100
--- NOTE | 2025-06-11 13:15 | DVHPN2 ---
Progress Note - Dictate Date Seen: Jun 11, 2025 Medical Necessity Reason Pt with a Central, PICC or Fol: No Subjective No new complaints Tolerating soft mechanical diet Abdominal pain improved Liver enzymes have normalized vital signs Vital Sign Date Time Temp Pulse Resp B/P (MAP) Pulse Ox O2 Delivery O2 Flow Rate FiO2 06/11/25 12:51 97.9 83 17 131/92 (105) 100 97.9 06/11/25 08:00 Nasal Cannula* 2 28 Total Intake and Output 06/10/25 06/10/25 06/11/25 15:00 23:00 07:00 Intake Total 630 ml 0 ml Balance 630 ml 0 ml medications Current Medications Medications Dose Ordered Sig/Adina Route Start Time Stop Time Status Last Admin Dose Admin Pantoprazole Sodium 40 mg DAILY IV 06/10/25 10:00 06/11/25 08:09 40 MG Amlodipine Besylate 5 mg DAILY PO 06/10/25 10:00 06/11/25 08:09 5 MG Hydralazine HCl 10 mg Q6HP PRN IV 06/09/25 20:45 06/10/25 06:49 10 MG Diagnostic Test (Pha) 1 strip Q6HR 06/10/25 00:00 06/11/25 11:41 1 STRIP Insulin Human Regular Q6HR SC 06/10/25 00:00 06/11/25 11:41 2 UNITS Dextrose 50 ml UD PRN IV 06/09/25 20:45 Acetaminophen/ Hydrocodone Bitart 1 tab Q4HP PRN PO 06/09/25 20:45 06/11/25 11:20 1 TAB Ondansetron HCl 4 mg Q4HP PRN IV 06/09/25 20:45 06/09/25 21:43 4 MG Docusate Sodium 100 mg BIDPRN PRN PO 06/09/25 20:45 Acetaminophen 650 mg Q6HP PRN PO 06/09/25 20:45 Morphine Sulfate 2 mg Q4HPRN PRN IV 06/09/25 20:45 06/11/25 08:04 2 MG Nitroglycerin 0.4 mg Q5MINP PRN SL 06/09/25 21:30 Morphine Sulfate 2 mg Q30M PRN IV 06/09/25 21:30 Potassium Chloride/Sodium Chloride 1,000 ml @ 75 mls/hr [id number] IV 06/10/25 11:00 06/10/25 12:52 75 MLS/HR laboratory and microbiology Laboratory Tests 06/11/25 05:42 06/10/25 04:52 Test 06/11/25 05:42 Range/Units Serum Glucose 216 #H 74-106 mg/dL Problems(with codes): (1) Acute abdominal pain (2) Cannabis hyperemesis syndrome concurrent with and due to cannabis dependence (3) Cyclical vomiting syndrome (4) Common bile duct dilation (5) Hyperbilirubinemia Prognosis Plan Discharge planning is in progress Patient can follow up in my office in 1-2 weeks to rearrange his colonoscopy appointment and to continue to monitor his liver tests Patient has been counseled against substance abuse, he also 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
== END 2025-06-11 14:53 | disposition home or self-care (01) | DRG 446 ==
LOC: EDBD 10:03 → ER 10:03 → OVERFLOW 21:19 → EAST 22:09
PROVIDERS: ADMIT Nurse Practitioner Acute Care; ATTEND Nurse Practitioner Acute Care
DX: K83.8 Other specified diseases of biliary tract (principal); K29.70 Gastritis, unspecified, without bleeding; E11.65 Type 2 diabetes mellitus with hyperglycemia; I10 Essential (primary) hypertension; E86.0 Dehydration; Z79.4 Long term (current) use of insulin; Z79.899 Other long term (current) drug therapy; Z82.0 Family history of epilepsy and other diseases of the nervous system; Z83.3 Family history of diabetes mellitus; Z80.1 Family history of malignant neoplasm of trachea, bronchus and lung
CPT/HCPCS: 36415; 74176; 76705; 80053; 80307; 81001; 82962; 83690; 85025; 87081; 96361; 96374; 96375; G0378; J1815; J2405; J2470

== ENCOUNTER 2025-07-10 23:58 | Inpatient (IN) | payer MEDICAID, OTHER ==
[~2025-07-10] VITALS: Ht 172.7 cm; Wt 76.1 kg
[~2025-07-10 23:58] MED LIST changes: +DICY10CA PO
[2025-07-11] VITALS (28 sets, daily range): BP systolic 102–165; BP diastolic 52–88; PULSE 70–109; RESP 9–23; TEMP 97.2–97.9; O2SAT 96–100
[2025-07-11] MEDS: SODIUM CHLORIDE 0.9% 1,000 ML IV ONE ×2 (00:42→02:40)
[2025-07-11] MEDS: METOCLOPRAMIDE HCL 5MG/ml INJ 2ml VIAL IV ONE (00:56)
[2025-07-11] MEDS: KETOROLAC TROMETH 30 MG/ML 1ML VIAL IV ONE (00:56)
[2025-07-11] MEDS: HYDROmorphone HCL 2 MG/ML VL/or syr IV ONE ×3 (00:57→08:36)
--- NOTE | 2025-07-11 01:05 | ED.PDOC ---
History of Present Illness HPI Comments 68-year-old male who presents to the emergency department with 2 days of generalized sharp abdominal pain nonradiating. Pain has been constant and worsening. He states the pain is worsened by everything. Somewhat relieved with Dike. Has a true diabetes, he is on 60 units of Lantus at night. He has not had his insulin for the past. History limited due to acuity of patient's condition REVIEW OF SYSTEMS: As Stated in HPI PHYSICAL EXAM: General: Awake, alert and oriented. In acute distress Skin: Skin in warm, dry and intact without rashes or lesions. HEENT: The head is normocephalic and atraumatic. Conjunctivae are clear without exudates or hemorrhage. Sclera is non-icteric. Neck: Normal range of motion. No JVD. Cardiac: Regular rate Respiratory: No signs of respiratory distress. No Stridor. Extremities: Upper and lower extremities are atraumatic in appearance without deformity. Neurological: The patient is awake, alert and oriented to person, place, and time with normal speech. Speech is clear. There is no facial asymmetry. Psychiatric: Appropriate mood and affect. Good judgement and insight. Chief Complaint: Abdominal Pain Time Seen by MD: 00:17 Allergies: Coded Allergies: NO KNOWN ALLERGIES (Unverified , 07/11/25) Mode of Arrival: EMS Was a procedure done? Was a procedure done?: No Differential Dx Considerations may include: Differential diagnoses considered include: Abdominal aortic aneurysm, MN, esophageal rupture, intestinal obstruction, mesenteric ischemia, perforated viscus or solid organ rupture, CHF with hepatomegaly, pneumonia, abscess, appendicitis, biliary disease, diverticulitis, gastritis, gastroenteritis, hepatitis, hernia, inflammatory bowel disease, pancreatitis, peptic ulcer disease, urinary tract infection, ureteral colic, constipation, GERD, irritable syndrome, abdominal wall pain, nonspecific abdominal pain, herpes zoster, nephrolithiasis. X-Ray, Labs, Meds, VS Vital Signs Date Time Temp Pulse Resp B/P (MAP) Pulse Ox O2 Delivery O2 Flow Rate FiO2 07/11/25 00:57 101 22 162/88 07/10/25 23:58 98.0 101 24 149/89 100 98.0 Lab Test 07/11/25 02:03 07/11/25 01:36 07/11/25 01:20 07/11/25 00:45 Range/Units POC Glucose 531 *H 70-106 mg/dl Lactic Acid Level Pending Blood Gas Specimen Type Arterial Blood Gas Sample Site Left radial Blood Gas Patient Temperature 37.0 Arterial Blood Date Drawn Arterial Blood pH 7.361 7.350-7.450 Arterial Blood Partial Pressure CO2 33.9 L 35.0-48.0 mmHg Arterial Blood Partial Pressure O2 80.4 L 83.0-108.0 mmHg Arterial Blood HCO3 18.8 L 21.0-28.0 mmol/L Arterial Blood Oxygen Saturation 94.5 94.0-98.0 % Arterial Blood Base Excess -5.7 L -2.0-3.0 mmol/L Arterial Blood Oxyhemoglobin 92.4 L 94.0-98.0 % Arterial Blood Carboxyhemoglobin 1.6 H 0.5-1.5 % Arterial Blood Methemoglobin 0.6 0.0-1.5 % Umer Test Modified Blood Gas Total Hemoglobin 15.00 13.5-17.5 g/dL Blood Gas Modality Room air FiO2 % 21.0 White Blood Count 17.7 H 4.4-10.8 10^3/uL Red Blood Count 5.09 4.5-5.90 10^6/uL Hemoglobin 14.6 13.5-17.5 g/dL Hematocrit 44.4 41.0-53.0 % Mean Corpuscular Volume 87.3 80.0-100.0 fL Mean Corpuscular Hemoglobin 28.7 28.0-32.0 pg Mean Corpuscular Hemoglobin Concent 32.9 32.0-36.0 g/dL Red Cell Distribution Width 14.1 11.8-14.3 % Platelet Count 420 140-450 10^3/uL Mean Platelet Volume 7.8 6.9-10.8 fL Neutrophils (%) (Auto) 88.7 H 37.0-80.0 % Lymphocytes (%) (Auto) 7.6 L 10.0-50.0 % Monocytes (%) (Auto) 3.1 0.0-12.0 % Eosinophils (%) (Auto) 0.1 0.0-7.0 % Basophils (%) (Auto) 0.5 0.0-2.0 % Neutrophils # (Auto) 15.7 H 1.6-8.6 10 ^3/uL Lymphocytes # (Auto) 1.3 0.4-5.4 10 ^3/uL Monocytes # (Auto) 0.5 0-1.3 10 ^3/uL Eosinophils # (Auto) 0 0-0.8 10 ^3/uL Basophils # (Auto) 0.1 0-0.2 10 ^3/uL Nucleated Red Blood Cells 0.2 % Sodium Level 132 L 136-145 mmol/L Potassium Level 4.4 3.5-5.1 mmol/L Chloride Level 96 L 98-107 mmol/L Carbon Dioxide Level 16 L 20-31 mmol/L Anion Gap 20 H 5-15 Blood Urea Nitrogen 17 9-23 mg/dL Creatinine 1.57 H 0.700-1.30 mg/dL Glomerular Filtration Rate Calc 54 >90 mL/min BUN/Creatinine Ratio 10.8 10.0-20.0 Serum Glucose 557 *H 74-106 mg/dL Calcium Level 10.0 8.7-10.4 mg/dL Magnesium Level 2.1 1.6-2.6 mg/dL Total Bilirubin 0.9 0.2-1.0 mg/dL Aspartate Amino Transferase (AST) 19 13-40 U/L Alanine Aminotransferase (ALT) 17 7-40 U/L Alkaline Phosphatase 131 H 46-116 U/L Total Protein 8.3 H 5.7-8.2 g/dL Albumin 4.8 3.2-4.8 g/dL Beta-Hydroxybutyric Acid 3.034 H < 0.4 mmol/L Current Medications Medications (Trade) Dose Ordered Sig/Adina Route Start Time Stop Time Status Last Admin Sodium Chloride 1,000 ml @ 1,000 mls/hr Q1H ONCE IV 07/11/25 00:30 07/11/25 01:29 DC 07/11/25 00:42 Metoclopramide HCl (Reglan Injection) 5 mg ONCE ONCE IV 07/11/25 00:45 07/11/25 01:02 DC 07/11/25 00:56 Hydromorphone HCl (Dilaudid Injection) 0.5 mg ONCE ONCE IV 07/11/25 00:45 07/11/25 01:02 DC 07/11/25 00:57 Ketorolac Tromethamine (Toradol Injection) 30 mg ONCE ONCE IV 07/11/25 00:45 07/11/25 01:02 DC 07/11/25 00:56 Diagnostic Test (Pha) (Accu-Chek Comfort Curve T) 1 strip ONCE STAT 07/11/25 02:12 07/11/25 02:15 DC 07/11/25 02:19 Time of 1ST Reevaluation: 01:03 Reevaluation 1ST: Unchanged SEPSIS Sepsis Screen Date sepsis recognized/suspect: Jul 11, 2025 Time Sepsis recognized/suspect: 2357 Recent Procedure: No On Antibiotic Therapy: No Respiratory Rate >20: No Heart Rate >90: No Temp<36 C (96.8 F) or >38.3 C: No SBP <90 or MAP <65 mmHG: No New Acute Mental Status Change: No Is the patient on CPAP, BIPAP,: No Physician Orders Saline Lock (07/11/25 00:18) Urinalysis (07/11/25 00:18) Abg W/ Co-Ox (07/11/25 00:38) Ct Ab Pel Wo Con-No Oral Or Iv (07/11/25 00:43) Lactic Acid W/ Reflex Order (07/11/25 01:25) Blood Culture (07/11/25 01:25) Lipase (07/11/25 02:12) Dextrose 50% Syringe (07/11/25 02:15) Dextrose 50% Syringe (07/11/25 02:15) Glucose Blood (Accu-Chek Comfort Curve T (07/11/25 21:15) Vital Signs Date Time Temp Pulse Resp B/P (MAP) Pulse Ox O2 Delivery O2 Flow Rate FiO2 07/11/25 00:57 101 22 162/88 07/10/25 23:58 98.0 101 24 149/89 100 98.0 Laboratory Tests Test 07/11/25 00:45 07/11/25 01:36 White Blood Count 17.7 10^3/uL (4.4-10.8) H Lactic Acid Level Pending Medications Medications Dose Ordered Sig/Adina Route Start Time Stop Time Status Last Admin Dose Admin Diagnostic Test (Pha) 1 strip ONCE STAT 07/11/25 02:12 07/11/25 02:15 DC 07/11/25 02:19 Hydromorphone HCl 0.5 mg ONCE ONCE IV 07/11/25 00:45 07/11/25 01:02 DC 07/11/25 00:57 Ketorolac Tromethamine 30 mg ONCE ONCE IV 07/11/25 00:45 07/11/25 01:02 DC 07/11/25 00:56 Metoclopramide HCl 5 mg ONCE ONCE IV 07/11/25 00:45 07/11/25 01:02 DC 07/11/25 00:56 Sodium Chloride 1,000 ml @ 1,000 mls/hr Q1H ONCE IV 07/11/25 00:30 07/11/25 01:29 DC 07/11/25 00:42 Departure 1 Departure Time of Disposition: 02:25 Impression: Primary Impression: DKA (diabetic ketoacidosis) Disposition: ADMITTED INPATIENT Condition: Serious Critical Care Note Critical Care Time?: No Stability Stability form required: SURAJ Gong MD Jul 11, 2025 01:05
[2025-07-11 01:20] LABS: Hematocrit 44.4 % (41.0-53.0); Hemoglobin 14.6 g/dL (13.5-17.5); Mean Corpuscular Hemoglobin 28.7 pg (28.0-32.0); Mean Corpuscular Volume 87.3 fL (80.0-100.0); Nucleated Red Blood Cells % 0.2 %
--- NOTE | 2025-07-11 01:24 | DVH ---
Exam: CT CT AB PEL WO CON-NO ORAL OR IV History: generalized abdominal pain Comparison Study: CT CT AB PEL WO CON-NO ORAL OR IV on DOS: 06/09/25, CT CT AB PEL WO CON-NO ORAL OR I V on DOS: 05/18/25, CT CT AB PEL WO CON-NO ORAL OR IV on DOS: 04/27/25, CT CT ABD PELVIS W CON-ORAL IV on DOS: 04/13/25, CT CT AB PEL WO CON-NO ORAL OR IV on DOS: 04/12/25 TECHNIQUE: Multidetector CT of the abdomen and pelvis was performed from lung bases to pubic symphysi s. Imaging was performed without IV contrast. Axial, coronal, and sagittal multiplanar reformats were obtained from the axial data set by the technologist. RADIATION DOSE: CTDI vol 8.81 mGy. DLP 448.53 mGy.cm Findings: Limited evaluation of the solid organs in the absence of IV contrast. Lungs: The lung bases are clear. Liver: Unremarkable. Spleen: Unremarkable. Pancreas: Unremarkable. Gallbladder: Unremarkable. Adrenals: Unremarkable Kidneys: Unremarkable. Pelvic Viscera: Unremarkable. Vasculature: Unremarkable. Retroperitoneum: Unremarkable. Bowel: No bowel obstruction. Colonic diverticulosis without CT evidence of diverticulitis. Portions o f the bowel are decompressed, limiting the assessment. The appendix is normal. Musculoskeletal: Unremarkable. Soft tissues: Unremarkable Impression: 1. No acute abdominopelvic abnormality.
[2025-07-11 01:29] LABS: Base Excess -5.7 mmol/L (-2.0-3.0)
[2025-07-11 01:44] LABS: Alanine Aminotransferase 17 U/L (7-40); Albumin 4.8 g/dL (3.2-4.8); Anion Gap 20 (5-15); BUN/Creatinine Ratio 10.8 (10.0-20.0); Blood Urea Nitrogen 17 mg/dL (9-23); Calcium 10.0 mg/dL (8.7-10.4); Magnesium 2.1 mg/dL (1.6-2.6); Potassium 4.4 mmol/L (3.5-5.1)
[2025-07-11 01:45] LABS: Bilirubin, Total 0.9 mg/dL (0.2-1.0)
[2025-07-11 01:47] LABS: Alkaline Phosphatase 131 U/L (46-116); Carbon Dioxide 16 mmol/L (20-31); Chloride 96 mmol/L (98-107); Sodium 132 mmol/L (136-145); Total Protein 8.3 g/dL (5.7-8.2)
[2025-07-11 01:48] LABS: Glucose 557 mg/dL (74-106)
[2025-07-11] MEDS ORDERED: DEXTROSE (50%) 50ML SYRG IV PRN ×3 (02:15→02:45)
[2025-07-11] MEDS: ACCU-CHEK COMFORT CURVE STRIP VI STA (02:19)
[2025-07-11] MEDS: InsuLIN REG 1unit/0.01ml Soln (100units/ml) IV ONE (02:26)
[2025-07-11 02:32] LABS: Lactic Acid w/Reflex 4.0 mmol/L (0.4-2.0)
[2025-07-11] MEDS ORDERED: MORPHINE SULFATE INJ 2 MG/ml SYRG IV PRN (02:45)
[2025-07-11] MEDS ORDERED: NITROGLYCERIN 0.4 MG SL TAB SL PRN (02:45)
[2025-07-11] MEDS: INSULIN LANTUS (GLARGINE) 1 /0.01ml (100units/ml) SC ONE (03:37)
[2025-07-11] MEDS: INSULIN DRIP 100 UNIT/100ML 100 ML IV SCH (03:38)
[2025-07-11 03:46] LABS: Chloride 98 mmol/L (98-107); Potassium 4.1 mmol/L (3.5-5.1); Sodium 136 mmol/L (136-145)
[2025-07-11 03:47] LABS: Anion Gap 16 (5-15); Calcium 9.6 mg/dL (8.7-10.4); Carbon Dioxide 22 mmol/L (20-31)
[2025-07-11 03:52] LABS: BUN/Creatinine Ratio 15.0 (10.0-20.0)
[2025-07-11 04:01] LABS: Blood Urea Nitrogen 23 mg/dL (9-23)
[2025-07-11 04:07] LABS: Glucose 502 mg/dL (74-106)
--- NOTE | 2025-07-11 04:44 | DVHHP2 ---
History of Present Illness Reason for Visit: Abdominal pain History of Present Illness 45-year-old male presents for evaluation of nausea and vomiting. Patient reports a two day history of abdominal pain with associated nausea and vomiting. He states his blood sugar has been elevated. He reports not taking his insulin for the past three days. No fever or chills. Past Medical History Diabetes mellitus Past Surgical History Denies Family History Noncontributory Smoke: No ALCOHOL: occassional Drugs: None Lives: with Family Review of Systems Review of Systems Review of systems are currently negative otherwise addressed in HPI. Allergies: Coded Allergies: NO KNOWN ALLERGIES (Unverified , 07/11/25) Medications Current Medications Medications Dose Ordered Sig/Adina Route Start Time Stop Time Status Last Admin Dose Admin Dextrose 50 ml PRN PRN IV 07/11/25 02:15 Dextrose 50 ml PRN PRN IV 07/11/25 02:15 Sodium Chloride 1,000 ml @ 250 mls/hr Q4H IV 07/11/25 06:45 07/11/25 08:44 Sodium Chloride 1,000 ml @ 150 mls/hr Q6H40M IV 07/11/25 08:45 Insulin Human (Reg)/Sodium Chloride 100 ml @ 0.5 mls/hr Q24H IV 07/11/25 02:45 07/11/25 03:38 0.5 MLS/HR Dextrose 50 ml UD PRN IV 07/11/25 02:45 Insulin Glargine 15 units DAILY SC 07/12/25 10:00 Ondansetron HCl 4 mg Q4HP PRN IV 07/11/25 02:45 Nitroglycerin 0.4 mg Q5MINP PRN SL 07/11/25 02:45 Morphine Sulfate 2 mg Q30M PRN IV 07/11/25 02:45 Ketorolac Tromethamine 15 mg Q6HPRN PRN IV 07/11/25 02:45 07/16/25 02:44 Diagnostic Test (Pha) 1 strip Q90MIN 07/11/25 04:30 Exam Vital Signs Vital Signs Date Time Temp Pulse Resp B/P (MAP) Pulse Ox O2 Delivery O2 Flow Rate FiO2 07/11/25 02:38 103 18 134/66 07/10/25 23:58 98.0 100 98.0 Exam Gen: 45-year-old male in moderate distress Skin: Warm, dry, normal color and texture, no rash. HEENT: Normocephalic atraumatic, mucous membranes moist and pink. Neck: Cervical and supraclavicular nodes normal without enlargement, trachea is midline, thyroid gland is normal without masses. Pulmonary: Clear to auscultation and percussion bilaterally. Cardiac: Regular rate and rhythm. No murmur Abdomen: Soft, nontender, nondistended, bowel sounds present all 4 quadrants, no guarding, no rigidity, no organomegaly. Extremities: No cyanosis, clubbing, no edema Neuro: Cranial nerves II through XII grossly intact, normal affect and speech, no focal motor deficits. Labs/Xrays ORDERING PHYSICIAN: SURAJ DELCID MD PROCEDURE(s): ABPL - CT AB PEL WO CON-NO ORAL OR IV REASON: generalized abdominal pain ORDER NUMBER(s): [id number], ACCESSION NUMBER(s): [id number] Exam: CT CT AB PEL WO CON-NO ORAL OR IV History: generalized abdominal pain Comparison Study: CT CT AB PEL WO CON-NO ORAL OR IV on DOS: 06/09/25, CT CT AB PEL WO CON-NO ORAL OR IV on DOS: 05/18/25, CT CT AB PEL WO CON-NO ORAL OR IV on DOS: 04/27/25, CT CT ABD PELVIS W CON-ORAL IV on DOS: 04/13/25, CT CT AB PEL WO CON-NO ORAL OR IV on DOS: 04/12/25 TECHNIQUE: Multidetector CT of the abdomen and pelvis was performed from lung bases to pubic symphysis. Imaging was performed without IV contrast. Axial, coronal, and sagittal multiplanar reformats were obtained from the axial data set by the technologist. RADIATION DOSE: CTDI vol 8.81 mGy. DLP 448.53 mGy.cm Findings: Limited evaluation of the solid organs in the absence of IV contrast. Lungs: The lung bases are clear. Liver: Unremarkable. Spleen: Unremarkable. Pancreas: Unremarkable. Gallbladder: Unremarkable. Adrenals: Unremarkable Kidneys: Unremarkable. Pelvic Viscera: Unremarkable. Vasculature: Unremarkable. Retroperitoneum: Unremarkable. Bowel: No bowel obstruction. Colonic diverticulosis without CT evidence of diverticulitis. Portions of the bowel are decompressed, limiting the assessment. The appendix is normal. Musculoskeletal: Unremarkable. Soft tissues: Unremarkable Impression: 1. No acute abdominopelvic abnormality. Labs Test 07/11/25 03:44 07/11/25 03:25 07/11/25 03:08 07/11/25 01:20 Range/Units Lactic Acid Level 3.0 *H 0.4-2.0 mmol/L POC Glucose 486 *H 70-106 mg/dl Sodium Level 136 136-145 mmol/L Potassium Level 4.1 3.5-5.1 mmol/L Chloride Level 98 98-107 mmol/L Carbon Dioxide Level 22 20-31 mmol/L Anion Gap 16 H 5-15 Blood Urea Nitrogen 23 9-23 mg/dL Creatinine 1.53 H 0.700-1.30 mg/dL Glomerular Filtration Rate Calc 56 >90 mL/min BUN/Creatinine Ratio 15.0 10.0-20.0 Serum Glucose 502 *H 74-106 mg/dL Serum Osmolality 426 H 278-298 mOsm/kg Calcium Level 9.6 8.7-10.4 mg/dL Blood Gas Specimen Type Arterial Blood Gas Sample Site Left radial Blood Gas Patient Temperature 37.0 Arterial Blood Date Drawn Arterial Blood pH 7.361 7.350-7.450 Arterial Blood Partial Pressure CO2 33.9 L 35.0-48.0 mmHg Arterial Blood Partial Pressure O2 80.4 L 83.0-108.0 mmHg Arterial Blood HCO3 18.8 L 21.0-28.0 mmol/L Arterial Blood Oxygen Saturation 94.5 94.0-98.0 % Arterial Blood Base Excess -5.7 L -2.0-3.0 mmol/L Arterial Blood Oxyhemoglobin 92.4 L 94.0-98.0 % Arterial Blood Carboxyhemoglobin 1.6 H 0.5-1.5 % Arterial Blood Methemoglobin 0.6 0.0-1.5 % Umer Test Modified Blood Gas Total Hemoglobin 15.00 13.5-17.5 g/dL Blood Gas Modality Room air FiO2 % 21.0 Test 07/11/25 00:45 Range/Units White Blood Count 17.7 H 4.4-10.8 10^3/uL Red Blood Count 5.09 4.5-5.90 10^6/uL Hemoglobin 14.6 13.5-17.5 g/dL Hematocrit 44.4 41.0-53.0 % Mean Corpuscular Volume 87.3 80.0-100.0 fL Mean Corpuscular Hemoglobin 28.7 28.0-32.0 pg Mean Corpuscular Hemoglobin Concent 32.9 32.0-36.0 g/dL Red Cell Distribution Width 14.1 11.8-14.3 % Platelet Count 420 140-450 10^3/uL Mean Platelet Volume 7.8 6.9-10.8 fL Neutrophils (%) (Auto) 88.7 H 37.0-80.0 % Lymphocytes (%) (Auto) 7.6 L 10.0-50.0 % Monocytes (%) (Auto) 3.1 0.0-12.0 % Eosinophils (%) (Auto) 0.1 0.0-7.0 % Basophils (%) (Auto) 0.5 0.0-2.0 % Neutrophils # (Auto) 15.7 H 1.6-8.6 10 ^3/uL Lymphocytes # (Auto) 1.3 0.4-5.4 10 ^3/uL Monocytes # (Auto) 0.5 0-1.3 10 ^3/uL Eosinophils # (Auto) 0 0-0.8 10 ^3/uL Basophils # (Auto) 0.1 0-0.2 10 ^3/uL Nucleated Red Blood Cells 0.2 % Magnesium Level 2.1 1.6-2.6 mg/dL Total Bilirubin 0.9 0.2-1.0 mg/dL Aspartate Amino Transferase (AST) 19 13-40 U/L Alanine Aminotransferase (ALT) 17 7-40 U/L Alkaline Phosphatase 131 H 46-116 U/L Total Protein 8.3 H 5.7-8.2 g/dL Albumin 4.8 3.2-4.8 g/dL Lipase 31 12-53 U/L Beta-Hydroxybutyric Acid 3.034 H < 0.4 mmol/L SEPSIS Sepsis Screen Date sepsis recognized/suspect: Jul 11, 2025 Time Sepsis recognized/suspect: 2357 Recent Procedure: No On Antibiotic Therapy: No Respiratory Rate >20: No Heart Rate >90: No Temp<36 C (96.8 F) or >38.3 C: No SBP <90 or MAP <65 mmHG: No New Acute Mental Status Change: No Is the patient on CPAP, BIPAP,: No Physician Orders Saline Lock (07/11/25 00:18) Urinalysis (07/11/25 00:18) Abg W/ Co-Ox (07/11/25 00:38) Ct Ab Pel Wo Con-No Oral Or Iv (07/11/25 00:43) Blood Culture (07/11/25 01:25) Dextrose 50% Syringe (07/11/25 02:15) Dextrose 50% Syringe (07/11/25 02:15) Glucose Blood (Accu-Chek Comfort Curve T (07/11/25 21:15) Insulin Drip Protocol (07/11/25 ) Sodium Chloride 0.9% (07/11/25 06:45) Sodium Chloride 0.9% (07/11/25 08:45) Insulin Drip 100 Unit/100ml (Myxredlin 1 (07/11/25 02:45) Dextrose 50% Syringe (07/11/25 02:45) Basic Metabolic Panel (07/11/25 08:32) Basic Metabolic Panel (07/11/25 14:32) Basic Metabolic Panel (07/11/25 20:32) Vs/Hemodynamics .PER UNIT PROTOCOL (07/11/25 02:32) Insulin Lantus (Glargine) (Lantus) (07/12/25 10:00) Admit (07/11/25 02:32) Ondansetron Hcl (Zofran) (07/11/25 02:45) Complete Blood Count (07/12/25 04:00) Comprehensive Metabolic Panel (07/12/25 04:00) Npo (Nothing By Mouth) Diet (07/11/25 Breakfast) Condition: Critical (07/11/25 02:32) Bedrest With Bathroom Privileg (07/11/25 02:32) Nitroglycerin Sublingual (Ntrostat Subli (07/11/25 02:45) Morphine Sulfate Injection (07/11/25 02:45) Stat Ekg For Chest Pain (07/11/25 02:32) Notify Md Of Changes From Base (07/11/25 02:32) Assistant Wrestling Coach For 24 Hours (07/11/25 02:32) Emergency Dysrhythmia Protocol (07/11/25 02:32) Rhythm Strips Once Every Shift (07/11/25 02:32) Oxygen By Nasal Cannula (07/11/25 02:32) Ketorolac Injection (Toradol Injection) (07/11/25 02:45) Glucose Blood (Accu-Chek Comfort Curve T (07/11/25 04:30) Blood Culture (07/11/25 04:18) Vital Signs Date Time Temp Pulse Resp B/P (MAP) Pulse Ox O2 Delivery O2 Flow Rate FiO2 07/11/25 02:38 103 18 134/66 07/11/25 00:57 101 22 162/88 07/10/25 23:58 98.0 101 24 149/89 100 98.0 Laboratory Tests Test 07/11/25 00:45 07/11/25 01:36 07/11/25 03:44 White Blood Count 17.7 10^3/uL (4.4-10.8) H Lactic Acid Level 4.0 mmol/L (0.4-2.0) *H 3.0 mmol/L (0.4-2.0) *H Medications Medications Dose Ordered Sig/Adina Route Start Time Stop Time Status Last Admin Dose Admin Diagnostic Test (Pha) 1 strip ONCE STAT 07/11/25 02:12 07/11/25 02:15 DC 07/11/25 02:19 1 STRIP Hydromorphone HCl 0.5 mg ONCE ONCE IV 07/11/25 00:45 07/11/25 01:02 DC 07/11/25 00:57 0.5 MG Hydromorphone HCl 0.5 mg ONCE ONCE IV 07/11/25 02:15 07/11/25 02:16 DC 07/11/25 02:38 0.5 MG Insulin Glargine 15 units ONCE ONCE SC 07/11/25 02:45 07/11/25 02:46 DC 07/11/25 03:37 15 UNITS Insulin Human (Reg)/Sodium Chloride 100 ml @ 0.5 mls/hr Q24H IV 07/11/25 02:45 07/11/25 03:38 0.5 MLS/HR Insulin Human Regular 4 units ONCE ONCE IV 07/11/25 02:15 07/11/25 02:16 DC 07/11/25 02:26 4 UNITS Ketorolac Tromethamine 30 mg ONCE ONCE IV 07/11/25 00:45 07/11/25 01:02 DC 07/11/25 00:56 30 MG Metoclopramide HCl 5 mg ONCE ONCE IV 07/11/25 00:45 07/11/25 01:02 DC 07/11/25 00:56 5 MG Sodium Chloride 1,000 ml @ 1,000 mls/hr Q1H ONCE IV 07/11/25 00:30 07/11/25 01:29 DC 07/11/25 00:42 1,000 MLS/HR Sodium Chloride 1,000 ml @ 1,000 mls/hr Q1H ONCE IV 07/11/25 02:30 07/11/25 03:29 DC 07/11/25 02:40 1,000 MLS/HR Assessment/Plan Assessment/Plan Assessment Diabetic ketoacidosis Acute kidney injury Leukocytosis Plan Admit the patient to [facility] to the hospitalist DKA protocol Rocephin Continue treatment per orders Total critical care time excluding procedures performed this 50 minutes. Plan discussed with: Patient My Orders Orders - CASI MALDONADO Procedure Category Date Status Time Insulin Drip Protocol [facility] 07/11/25 In Process Sodium Chloride 0.9% PHA 07/11/25 In Process 06:45 Sodium Chloride 0.9% PHA 07/11/25 In Process 08:45 Insulin Drip 100 PHA 07/11/25 In Process Unit/100ml (Myxredlin 02:45 Dextrose 50% Syringe PHA 07/11/25 In Process 02:45 Basic Metabolic Panel LAB 07/11/25 Logged 08:32 Basic Metabolic Panel LAB 07/11/25 Logged 14:32 Basic Metabolic Panel LAB 07/11/25 Logged 20:32 Vs/Hemodynamics [facility] 07/11/25 In Process 02:32 Insulin Lantus PHA 07/12/25 In Process (Glargine) (Lantus) 10:00 Admit ADMIT 07/11/25 Transmitted 02:32 Ondansetron Hcl PHA 07/11/25 In Process (Zofran) 02:45 Complete Blood Count LAB 07/12/25 Verified 04:00 Comprehensive LAB 07/12/25 Verified Metabolic Panel 04:00 Npo (Nothing By DIET 07/11/25 Transmitted Mouth) Diet Breakfast Condition: Critical [facility] 07/11/25 In Process 02:32 Bedrest With Bathroom [facility] 07/11/25 In Process Privileg 02:32 Nitroglycerin PHA 07/11/25 In Process Sublingual (Ntrostat 02:45 Morphine Sulfate PHA 07/11/25 In Process Injection 02:45 Stat Ekg For Chest [facility] 07/11/25 In Process Pain 02:32 Notify Md Of Changes [facility] 07/11/25 In Process From Base 02:32 Assistant Wrestling Coach For [facility] 07/11/25 In Process 24 Hours 02:32 Emergency Dysrhythmia [facility] 07/11/25 In Process Protocol 02:32 Rhythm Strips Once [facility] 07/11/25 In Process Every Shift 02:32 Oxygen By Nasal RT 07/11/25 Transmitted Cannula 02:32 Ketorolac Injection PHA 07/11/25 In Process (Toradol Injection) 02:45 Glucose Blood PHA 07/11/25 In Process (Accu-Chek Comfort 04:30 Blood Culture SOFY 07/11/25 Logged 04:18 Date of Service: Jul 11, 2025 Billing Provider: CASI MALDONADO Common Visit Codes: [id number] CARE 30-74 MIN CASI MALDONADO Jul 11, 2025 04:44
[2025-07-11] MEDS: ACCU-CHEK COMFORT CURVE STRIP VI SCH ×2 (04:45→19:59)
[2025-07-11 05:47] LABS: Urine Protein, UAD Negative (Negative)
[2025-07-11] MEDS: KETOROLAC TROMETH 30 MG/ML 1ML VIAL IV PRN (06:09)
[2025-07-11] MEDS: SODIUM CHLORIDE 0.9% 1,000 ML IV SCH ×2 (06:58→09:55)
[2025-07-11] MEDS ORDERED: HYDROcodone-ACET 5/325MG TAB PO PRN (08:15)
[2025-07-11] MEDS: ACCU-CHEK COMFORT CURVE STRIP VI ONE (08:20)
[2025-07-11 09:37] LABS: Calcium 9.4 mg/dL (8.7-10.4); Chloride 103 mmol/L (98-107); Potassium 3.9 mmol/L (3.5-5.1); Sodium 139 mmol/L (136-145)
[2025-07-11 09:41] LABS: Glucose 278 mg/dL (74-106)
[2025-07-11 09:42] LABS: BUN/Creatinine Ratio 17.8 (10.0-20.0); Blood Urea Nitrogen 23 mg/dL (9-23)
[2025-07-11 09:43] LABS: Anion Gap 15 (5-15); Carbon Dioxide 21 mmol/L (20-31)
[2025-07-11] MEDS: HYDROmorphone HCL 2 MG/ML VL/or syr IV PRN (12:13)
[2025-07-11] MEDS: ONDANSETRON HCL 4 MG/2 ML VIAL IV PRN (14:39)
[2025-07-11] MEDS: METOCLOPRAMIDE HCL 5MG/ml INJ 2ml VIAL IV SCH (15:00)
[2025-07-11] MEDS ORDERED: diphenhydrAMINE HCL 50 MG/1 ML VL IV SCH (15:00)
[2025-07-11 15:08] LABS: Chloride 105 mmol/L (98-107); Potassium 3.8 mmol/L (3.5-5.1); Sodium 143 mmol/L (136-145)
[2025-07-11 15:09] LABS: Anion Gap 11 (5-15); Calcium 9.3 mg/dL (8.7-10.4); Carbon Dioxide 27 mmol/L (20-31)
--- NOTE | 2025-07-11 15:09 | DVHPN2 ---
Reviewed: H&P Changes from previous H/P or p: No Changes General: Per HPI Objective Vitals Vital Signs Date Time Temp Pulse Resp B/P (MAP) Pulse Ox O2 Delivery O2 Flow Rate FiO2 07/11/25 12:13 94 16 132/81 07/11/25 08:00 97.8 97 97.8 07/11/25 08:00 Room Air* 0 21 Intake/Output Intake and Output 07/11/25 07:00 Intake Total 2000 ml Balance 2000 ml Intake IV Total 2000 ml Exam GEN: in acute distress HEENT: NC/AT; MMM. CV: RRR, no m/r/g. LUNGS: CTAB, no w/r/c. ABD: hypoactive BS, epigastrium TTP EXT: skin Warm, well perfused. no rashes. No clubbing, cyanosis, or edema. NEURO: Ambulating with no limitations. No focal deficits. Medications Current Medications Medications Dose Ordered Sig/Adina Route Start Time Stop Time Status Last Admin Dose Admin Dextrose 50 ml PRN PRN IV 07/11/25 02:15 Dextrose 50 ml PRN PRN IV 07/11/25 02:15 Sodium Chloride 1,000 ml @ 150 mls/hr Q6H40M IV 07/11/25 08:45 07/11/25 09:55 150 MLS/HR Insulin Human (Reg)/Sodium Chloride 100 ml @ 0.5 mls/hr Q24H IV 07/11/25 02:45 07/11/25 03:38 6 MLS/HR Dextrose 50 ml UD PRN IV 07/11/25 02:45 Insulin Glargine 15 units DAILY SC 07/12/25 10:00 Ondansetron HCl 4 mg Q4HP PRN IV 07/11/25 02:45 07/11/25 14:39 4 MG Nitroglycerin 0.4 mg Q5MINP PRN SL 07/11/25 02:45 Morphine Sulfate 2 mg Q30M PRN IV 07/11/25 02:45 Diagnostic Test (Pha) 1 strip Q90MIN 07/11/25 04:30 07/11/25 13:30 1 STRIP Ceftriaxone Sodium 50 ml @ 100 mls/hr DAILY@09 IV 07/11/25 09:00 07/11/25 09:55 100 MLS/HR Hydromorphone HCl 0.5 mg Q4HPRN PRN IV 07/11/25 08:15 07/11/25 12:13 0.5 MG Acetaminophen/ Hydrocodone Bitart 1 tab Q4HPRN PRN PO 07/11/25 08:15 Pantoprazole Sodium 40 mg DAILY IV 07/11/25 15:00 UNV Diphenhydramine HCl 25 mg BID IV 07/11/25 15:00 UNV Metoclopramide HCl 5 mg Q8HR IV 07/11/25 15:00 UNV Laboratory Results Laboratory Tests 07/11/25 00:45 Chemistry Test 07/11/25 00:45 07/11/25 03:08 07/11/25 08:32 07/11/25 14:37 Albumin 4.8 g/dL (3.2-4.8) Calcium Level 10.0 mg/dL (8.7-10.4) 9.6 mg/dL (8.7-10.4) 9.4 mg/dL (8.7-10.4) Pending Magnesium Level 2.1 mg/dL (1.6-2.6) Total Protein 8.3 g/dL (5.7-8.2) H Lipid panel Test 07/11/25 00:45 Lipase 31 U/L (12-53) LFT Test 07/11/25 00:45 Alanine Aminotransferase (ALT) 17 U/L (7-40) Alkaline Phosphatase 131 U/L (46-116) H Aspartate Amino Transferase (AST) 19 U/L (13-40) Total Bilirubin 0.9 mg/dL (0.2-1.0) Urinalysis Test 07/11/25 05:27 Urine Color Light-yellow (Yellow) Urine Clarity Clear (Clear) Urine pH 5.0 (5.0-9.0) Urine Specific [place] 1.031 (1.001-1.035) Urine Protein Negative (Negative) Urine Ketones 2+ (Negative) H Urine Blood Negative /uL (Negative) Urine Nitrite Negative (Negative) Urine Bilirubin Negative (Negative) Urine Urobilinogen Normal mg/dL (Negative) Urine Leukocyte Esterase Negative /uL (Negative) Urine RBC None seen /hpf (0 - 3) Urine Microscopic WBC < 1 /HPF (0-3) Urine Squamous Epithelial Cells None seen /hpf (<5) Urine Bacteria None seen /hpf (None Seen) Urine Hyaline Casts Few /lpf (0 - 2) Urine Glucose 4+ mg/dL (Normal) H Blood Gas Results Test 07/11/25 01:20 Arterial Blood pH 7.361 (7.350-7.450) FiO2 % 21.0 Labs and/or images reviewed: Labs reviewed by me, Image(s) reviewed by me Assessment/Plan Assessment/Plan 68-year-old male w PMHx DM, gastroparesis who presents to the emergency department with 2 days of generalized sharp abdominal pain nonradiating. Pain has been constant and worsening. He states the pain is worsened by everything. Somewhat relieved with [place]. Has a true diabetes, he is on 60 units of Lantus at night. He has not had his insulin for the past. History limited due to acuity of patient's condition 07/10: Presenting with hyperglycemia, on clear inciting cause. Patient has been able to tolerate p.o., not taking any insulin, presenting with DKA. Patient also has history of gastroparesis we will start Reglan 5 IV t.i.d.. Patient nauseous and is just we will start Benadryl 25 b.i.d., continuing DKA protocol, still has gap but blood glucose much improved. Patient has been and deviate before, we will combine accounts today. ? Gastroparesis possible we will start ceftriaxone Flagyl. DKA Diabetes with hyperglycemia, gastroparesis Gastroparesis, acute flare up/exacerbation possible D OU Full code Plan discussed with: Patient My Orders Orders - RAFAEL VARGHESE MD Procedure Category Date Status Time Pantoprazole PHA 07/11/25 Logged (Protonix) 15:00 Diphenhdramine PHA 07/11/25 Logged Injection (Benadryl 15:00 Metoclopramide PHA 07/11/25 Logged Injection (Reglan 15:00 Npo Except Ice Chips [place] 07/11/25 In Process 14:49 Npo (Nothing By DIET 07/11/25 Transmitted Mouth) Diet Dinner Date of Service: Jul 11, 2025 Billing Provider: RAFAEL VARGHESE MD Common Visit Codes: [id number] CARE 30-74 MIN RAFAEL VARGHESE MD Jul 11, 2025 15:09
[2025-07-11 15:14] LABS: BUN/Creatinine Ratio 28.3 (10.0-20.0)
[2025-07-11 15:17] LABS: Blood Urea Nitrogen 28 mg/dL (9-23); Glucose 120 mg/dL (74-106)
[2025-07-11] MEDS: PANTOPRAZOLE 40 MG/10 ML VIAL INJ IV SCH (15:45)
[2025-07-11] MEDS: diphenhydrAMINE HCL 50 MG/1 ML VL IV SCH (16:49)
[2025-07-11] MEDS: INSULIN LANTUS (GLARGINE) 1 /0.01ml (100units/ml) SC SCH (19:27)
[2025-07-11] MEDS: InsuLIN REG 1unit/0.01ml Soln (100units/ml) SC SCH (20:00)
[2025-07-12] VITALS (27 sets, daily range): BP systolic 108–152; BP diastolic 60–97; PULSE 64–80; RESP 9–19; TEMP 97.3–99.1; O2SAT 95–100
[2025-07-12 05:47] LABS: Hematocrit 36.4 % (41.0-53.0); Hemoglobin 12.0 g/dL (13.5-17.5); Mean Corpuscular Hemoglobin 28.3 pg (28.0-32.0); Mean Corpuscular Volume 85.5 fL (80.0-100.0); Nucleated Red Blood Cells % 0.1 %
[2025-07-12 06:03] LABS: Alanine Aminotransferase 14 U/L (7-40); Albumin 3.5 g/dL (3.2-4.8); Alkaline Phosphatase 80 U/L (46-116); Anion Gap 10 (5-15); BUN/Creatinine Ratio 20.5 (10.0-20.0); Bilirubin, Total 0.5 mg/dL (0.2-1.0); Blood Urea Nitrogen 15 mg/dL (9-23); Carbon Dioxide 26 mmol/L (20-31); Chloride 105 mmol/L (98-107); Sodium 141 mmol/L (136-145); Total Protein 6.1 g/dL (5.7-8.2)
[2025-07-12 06:06] LABS: Calcium 8.4 mg/dL (8.7-10.4); Glucose 125 mg/dL (74-106); Potassium 3.3 mmol/L (3.5-5.1)
[2025-07-12] MEDS ORDERED: INSULIN LANTUS (GLARGINE) 1 /0.01ml (100units/ml) SC SCH (10:00)
--- NOTE | 2025-07-12 10:43 | DVHPN2 ---
Reviewed: H&P Changes from previous H/P or p: No Changes General: Per HPI Objective Vitals Vital Signs Date Time Temp Pulse Resp B/P (MAP) Pulse Ox O2 Delivery O2 Flow Rate FiO2 07/12/25 09:02 77 17 118/67 07/12/25 04:00 98.0 98.0 07/12/25 03:00 100 07/11/25 08:00 Room Air* 0 21 Intake/Output Intake and Output 07/12/25 07:00 Intake Total 3020.0 ml Output Total 600 ml Balance 2420.0 ml Intake Oral 0 ml IV Total 3020.0 ml Output Urine Total 600 ml Exam GEN: in acute distress HEENT: NC/AT; MMM. CV: RRR, no m/r/g. LUNGS: CTAB, no w/r/c. ABD: hypoactive BS, epigastrium TTP EXT: skin Warm, well perfused. no rashes. No clubbing, cyanosis, or edema. NEURO: Ambulating with no limitations. No focal deficits. Medications Current Medications Medications Dose Ordered Sig/Adina Route Start Time Stop Time Status Last Admin Dose Admin Dextrose 50 ml PRN PRN IV 07/11/25 02:15 Cancel Dextrose 50 ml PRN PRN IV 07/11/25 02:15 Cancel Sodium Chloride 1,000 ml @ 150 mls/hr Q6H40M IV 07/11/25 08:45 07/12/25 04:45 150 MLS/HR Dextrose 50 ml UD PRN IV 07/11/25 02:45 Ondansetron HCl 4 mg Q4HP PRN IV 07/11/25 02:45 07/11/25 14:39 4 MG Nitroglycerin 0.4 mg Q5MINP PRN SL 07/11/25 02:45 Morphine Sulfate 2 mg Q30M PRN IV 07/11/25 02:45 Ceftriaxone Sodium 50 ml @ 100 mls/hr DAILY@09 IV 07/11/25 09:00 07/12/25 10:27 100 MLS/HR Hydromorphone HCl 0.5 mg Q4HPRN PRN IV 07/11/25 08:15 07/12/25 09:02 0.5 MG Acetaminophen/ Hydrocodone Bitart 1 tab Q4HPRN PRN PO 07/11/25 08:15 Pantoprazole Sodium 40 mg DAILY IV 07/11/25 15:00 07/12/25 10:27 40 MG Metoclopramide HCl 5 mg Q8HR IV 07/11/25 15:00 07/12/25 05:29 5 MG Diphenhydramine HCl 25 mg BID IV 07/11/25 15:15 07/12/25 10:27 25 MG Insulin Glargine 10 units HS SC 07/11/25 18:30 07/11/25 19:27 10 UNITS Diagnostic Test (Pha) 1 strip IQ4HR 07/11/25 20:00 07/12/25 07:48 1 STRIP Insulin Human Regular IQ4HR SC 07/11/25 20:00 07/12/25 04:00 2 UNITS Metronidazole 100 ml @ 100 mls/hr Q8HR IV 07/11/25 22:00 07/12/25 05:29 100 MLS/HR Laboratory Results Laboratory Tests 07/12/25 05:12 Chemistry Test 07/11/25 14:37 07/12/25 05:12 Calcium Level 9.3 mg/dL (8.7-10.4) 8.4 mg/dL (8.7-10.4) L Albumin 3.5 g/dL (3.2-4.8) Total Protein 6.1 g/dL (5.7-8.2) LFT Test 07/12/25 05:12 Alanine Aminotransferase (ALT) 14 U/L (7-40) Alkaline Phosphatase 80 U/L (46-116) Aspartate Amino Transferase (AST) 24 U/L (13-40) Total Bilirubin 0.5 mg/dL (0.2-1.0) Urinalysis Test 07/11/25 05:27 Urine Color Light-yellow (Yellow) Urine Clarity Clear (Clear) Urine pH 5.0 (5.0-9.0) Urine Specific [place] 1.031 (1.001-1.035) Urine Protein Negative (Negative) Urine Ketones 2+ (Negative) H Urine Blood Negative /uL (Negative) Urine Nitrite Negative (Negative) Urine Bilirubin Negative (Negative) Urine Urobilinogen Normal mg/dL (Negative) Urine Leukocyte Esterase Negative /uL (Negative) Urine RBC None seen /hpf (0 - 3) Urine Microscopic WBC < 1 /HPF (0-3) Urine Squamous Epithelial Cells None seen /hpf (<5) Urine Bacteria None seen /hpf (None Seen) Urine Hyaline Casts Few /lpf (0 - 2) Urine Glucose 4+ mg/dL (Normal) H Microbiology Microbiology Date/Time Source Procedure Growth Status 07/11/25 01:36 Blood Blood Culture - Preliminary NO GROWTH AFTER 24 HOURS OF INCUBATION. Resulted Labs and/or images reviewed: Labs reviewed by me, Image(s) reviewed by me Assessment/Plan Assessment/Plan 68-year-old male w PMHx DM, gastroparesis who presents to the emergency department with 2 days of generalized sharp abdominal pain nonradiating. Pain has been constant and worsening. He states the pain is worsened by everything. Somewhat relieved with [place]. Has a true diabetes, he is on 60 units of Lantus at night. He has not had his insulin for the past. History limited due to acuity of patient's condition 07/10: Presenting with hyperglycemia, on clear inciting cause. Patient has been able to tolerate p.o., not taking any insulin, presenting with DKA. Patient also has history of gastroparesis we will start Reglan 5 IV t.i.d.. Patient nauseous and is just we will start Benadryl 25 b.i.d., continuing DKA protocol, still has gap but blood glucose much improved. Patient has been and deviate before, we will combine accounts today. ? Gastroparesis possible we will start ceftriaxone Flagyl. 07/12: DKA resolved, down escalate to tele. Switch Reglan to 10 p.o. b.i.d. as home dose, switch Protonix to 40 p.o. daily, hold off Carafate. Hold off primary Flexeril. We will keep secondary IV Zofran for q.6 H, continue sliding scale mild a.c. HS, continue Lantus 10 HS. Escalate diet from clear liquid to full liquid diet. If remains stable tomorrow discharge plan we will be 2 weeks of full liquid diet, take Reglan 10 t.i.d. instead of b.i.d. for 1 week, p.o. antibiotic, likely Augmentin 875 b.i.d.,. Patient endorses that he takes 60 unit Lantus which isn't adding up given our sugars. We will need 1 more day to optimize insulin. diagnosis: DKA Diabetes with hyperglycemia, gastroparesis Gastroparesis, acute flare up/exacerbation possible plan: Ceftriaxone and metronidazole, possible gastroenteritis Insulin a.c. HS Lantus 10 HS Reglan p.o. 10 b.i.d. Protonix p.o. 40 daily IRMA Full code Plan discussed with: Patient My Orders Orders - RAFAEL VARGHESE MD Procedure Category Date Status Time Pantoprazole PHA 07/11/25 In Process (Protonix) 15:00 Metoclopramide PHA 07/11/25 In Process Injection (Reglan 15:00 Diphenhdramine PHA 07/11/25 In Process Injection (Benadryl 15:15 Insulin Lantus PHA 07/11/25 In Process (Glargine) (Lantus) 18:30 Glucose Blood PHA 07/11/25 In Process (Accu-Chek Comfort 20:00 Insulin R (Human) PHA 07/11/25 In Process (Insulin R) 20:00 Clear Liq Diet DIET 07/11/25 Transmitted Dinner Metronidazole PHA 07/11/25 In Process 500mg/100ml (Flagyl 22:00 Transfer Orders XFER 07/12/25 Transmitted 08:08 Date of Service: Jul 12, 2025 Billing Provider: RAFAEL VARGHESE MD Common Visit Codes: [id number] CARE 30-74 MIN RAFAEL VARGHESE MD Jul 12, 2025 10:43
[2025-07-12] MEDS ORDERED: DEXTROSE (50%) 50ML SYRG IV PRN (11:00)
[2025-07-12] MEDS: ACCU-CHEK COMFORT CURVE STRIP VI SCH (12:15)
[2025-07-12] MEDS: METOCLOPRAMIDE HCL 10 MG TAB PO SCH (12:18)
[2025-07-12] MEDS: POTASSIUM EFFERVESENT TAB 25 MEQ PO ONE (12:18)
[2025-07-12] MEDS: InsuLIN REG 1unit/0.01ml Soln (100units/ml) SC SCH (12:19)
[2025-07-12] MEDS: PANTOPRAZOLE 40 MG TAB PO SCH (17:57)
[2025-07-13 01:00] VITALS: BP 145/93; PULSE 79; RESP 19; TEMP 98.1; O2SAT 96
[2025-07-13 05:00] VITALS: BP 137/87; PULSE 73; RESP 18; TEMP 97.9; O2SAT 98
[2025-07-13 05:07] LABS: Chloride 100 mmol/L (98-107); Sodium 137 mmol/L (136-145)
[2025-07-13 05:08] LABS: Anion Gap 8 (5-15); Calcium 9.0 mg/dL (8.7-10.4); Carbon Dioxide 29 mmol/L (20-31)
[2025-07-13 05:13] LABS: BUN/Creatinine Ratio 11.0 (10.0-20.0)
[2025-07-13 05:15] LABS: Blood Urea Nitrogen 9 mg/dL (9-23); Glucose 146 mg/dL (74-106); Potassium 3.2 mmol/L (3.5-5.1)
[2025-07-13 08:00] VITALS: PULSE 76; PULSE 78; RESP 16; O2SAT 96
[2025-07-13 09:00] VITALS: BP 148/99; PULSE 84; RESP 18; TEMP 98.2; O2SAT 100
--- NOTE | 2025-07-13 09:41 | DVHDS2 ---
Discharge Summary Date of Admission Jul 11, 2025 at 02:32 Date of Discharge: Jul 13, 2025 Labs/Diagnostic Data: Laboratory Results Test 07/13/25 06:14 07/13/25 04:25 07/12/25 05:12 07/11/25 05:27 POC Glucose 161 mg/dl (70-106) Sodium Level 137 mmol/L (136-145) Potassium Level 3.2 mmol/L (3.5-5.1) Chloride Level 100 mmol/L (98-107) Carbon Dioxide Level 29 mmol/L (20-31) Anion Gap 8 (5-15) Blood Urea Nitrogen 9 mg/dL (9-23) Creatinine 0.82 mg/dL (0.700-1.30) Glomerular Filtration Rate Calc 109 mL/min (>90) BUN/Creatinine Ratio 11.0 (10.0-20.0) Serum Glucose 146 mg/dL (74-106) Calcium Level 9.0 mg/dL (8.7-10.4) White Blood Count 9.9 10^3/uL (4.4-10.8) Red Blood Count 4.25 10^6/uL (4.5-5.90) Hemoglobin 12.0 g/dL (13.5-17.5) Hematocrit 36.4 % (41.0-53.0) Mean Corpuscular Volume 85.5 fL (80.0-100.0) Mean Corpuscular Hemoglobin 28.3 pg (28.0-32.0) Mean Corpuscular Hemoglobin Concent 33.1 g/dL (32.0-36.0) Red Cell Distribution Width 13.9 % (11.8-14.3) Platelet Count 342 10^3/uL (140-450) Mean Platelet Volume 7.4 fL (6.9-10.8) Neutrophils (%) (Auto) 69.7 % (37.0-80.0) Lymphocytes (%) (Auto) 21.1 % (10.0-50.0) Monocytes (%) (Auto) 7.2 % (0.0-12.0) Eosinophils (%) (Auto) 1.4 % (0.0-7.0) Basophils (%) (Auto) 0.6 % (0.0-2.0) Neutrophils # (Auto) 6.9 10 ^3/uL (1.6-8.6) Lymphocytes # (Auto) 2.1 10 ^3/uL (0.4-5.4) Monocytes # (Auto) 0.7 10 ^3/uL (0-1.3) Eosinophils # (Auto) 0.1 10 ^3/uL (0-0.8) Basophils # (Auto) 0.1 10 ^3/uL (0-0.2) Nucleated Red Blood Cells 0.1 % Total Bilirubin 0.5 mg/dL (0.2-1.0) Aspartate Amino Transferase (AST) 24 U/L (13-40) Alanine Aminotransferase (ALT) 14 U/L (7-40) Alkaline Phosphatase 80 U/L (46-116) Total Protein 6.1 g/dL (5.7-8.2) Albumin 3.5 g/dL (3.2-4.8) Urine Color Light-yellow (Yellow) Urine Clarity Clear (Clear) Urine pH 5.0 (5.0-9.0) Urine Specific [place] 1.031 (1.001-1.035) Urine Protein Negative (Negative) Urine Ketones 2+ (Negative) Urine Blood Negative /uL (Negative) Urine Nitrite Negative (Negative) Urine Bilirubin Negative (Negative) Urine Urobilinogen Normal mg/dL (Negative) Urine Leukocyte Esterase Negative /uL (Negative) Urine RBC None seen /hpf (0 - 3) Urine Microscopic WBC < 1 /HPF (0-3) Urine Squamous Epithelial Cells None seen /hpf (<5) Urine Bacteria None seen /hpf (None Seen) Urine Hyaline Casts Few /lpf (0 - 2) Urine Glucose 4+ mg/dL (Normal) Test 07/11/25 03:44 07/11/25 03:08 07/11/25 01:20 07/11/25 00:45 Lactic Acid Level 3.0 mmol/L (0.4-2.0) Serum Osmolality 426 mOsm/kg (278-298) Blood Gas Specimen Type Arterial Blood Gas Sample Site Left radial Blood Gas Patient Temperature 37.0 Arterial Blood Date Drawn Arterial Blood pH 7.361 (7.350-7.450) Arterial Blood Partial Pressure CO2 33.9 mmHg (35.0-48.0) Arterial Blood Partial Pressure O2 80.4 mmHg (83.0-108.0) Arterial Blood HCO3 18.8 mmol/L (21.0-28.0) Arterial Blood Oxygen Saturation 94.5 % (94.0-98.0) Arterial Blood Base Excess -5.7 mmol/L (-2.0-3.0) Arterial Blood Oxyhemoglobin 92.4 % (94.0-98.0) Arterial Blood Carboxyhemoglobin 1.6 % (0.5-1.5) Arterial Blood Methemoglobin 0.6 % (0.0-1.5) Umer Test Modified Blood Gas Total Hemoglobin 15.00 g/dL (13.5-17.5) Blood Gas Modality Room air FiO2 % 21.0 Magnesium Level 2.1 mg/dL (1.6-2.6) Lipase 31 U/L (12-53) Beta-Hydroxybutyric Acid 3.034 mmol/L (< 0.4) Other Laboratory Tests 07/13/25 04:25 07/12/25 05:12 Brief Hx & Hospital Course: 68-year-old male w PMHx DM, gastroparesis who presents to the emergency department with 2 days of generalized sharp abdominal pain nonradiating. Pain has been constant and worsening. He states the pain is worsened by everything. Somewhat relieved with [place]. Has a true diabetes, he is on 60 units of Lantus at night. He has not had his insulin for the past. History limited due to acuity of patient's condition 07/10: Presenting with hyperglycemia, on clear inciting cause. Patient has been able to tolerate p.o., not taking any insulin, presenting with DKA. Patient also has history of gastroparesis we will start Reglan 5 IV t.i.d.. Patient nauseous and is just we will start Benadryl 25 b.i.d., continuing DKA protocol, still has gap but blood glucose much improved. Patient has been and deviate before, we will combine accounts today. ? Gastroparesis possible we will start ceftriaxone Flagyl. 07/12: DKA resolved, down escalate to tele. Switch Reglan to 10 p.o. b.i.d. as home dose, switch Protonix to 40 p.o. daily, hold off Carafate. Hold off primary Flexeril. We will keep secondary IV Zofran for q.6 H, continue sliding scale mild a.c. HS, continue Lantus 10 HS. Escalate diet from clear liquid to full liquid diet. If remains stable tomorrow discharge plan we will be 2 weeks of full liquid diet, take Reglan 10 t.i.d. instead of b.i.d. for 1 week, p.o. antibiotic, likely Augmentin 875 b.i.d.,. Patient endorses that he takes 60 unit Lantus which isn't adding up given our sugars. We will need 1 more day to optimize insulin. 07/13: Patient continues to tolerate diet, requiring minimal insulin. Patient can use 10 units at night and go home with sliding scale insulin, noted to be using at least 2 units with meals and patient's notified of this level. Patient wants refill for Tylenol and continues to have chronic back pain for which we will use [place] as second-line. Patient vital signs stable, stable for discharge as per plan below. diagnosis: DKA Diabetes with hyperglycemia, gastroparesis Acute gastroenteritis, infectious etiology likely, possible Gastroparesis, acute flare up/exacerbation possible Concern for medication noncompliance discharge plan: -lantus 10 units at night and sliding scale insulin, (using at least 2 units with meals). -Refill for Tylenol, use as 1st line for pain and use [place] as second-line, up to 4 times daily as needed. - continue full liquid diet (diabetic/low carb) -Strict diabetic diet -Follow up with PCP to review discharge -Continue other home medications. Condition at Discharge: Fair Final Diagnosis/Problems List DKA Diabetes with hyperglycemia, gastroparesis Acute gastroenteritis, infectious etiology likely, possible Gastroparesis, acute flare up/exacerbation possible Concern for medication noncompliance Discharge Disposition: Home Discharge Instruct/Medications Scheduled Insulin Glargine (Lantus Solostar), 10 UNIT SC HS Metoclopramide Hcl (Metoclopramide Hcl), 10 MG PO BID Pantoprazole Sodium Sesquihydr (Protonix), 40 MG PO DAILY Scheduled PRN Acetaminophen (Acetaminophen), 500 MG PO QIDP PRN Hydrocodone-Acetaminophen (Hydrocodone Bitartrate/AC 5-325 mg), 1 TAB PO TIDP PRN Insulin Aspart (Novolog Flexpen Relion), 1-10 UNIT SC TIDWM PRN Discharge Statement: "Patient was advised to return to the ER or call 911 if any headaches, dizziness, shortness of breath, chest pain, abdominal pain, bleeding, fevers, or worsening of medical condition. Patient was counseled about treatment plan, medications, possible side effects, patientverbalized understanding. All questions were answered to the best of my ability. This discharge took greater then 30 minutes in planning, reviewing documentation, counseling the patient, and discussing with other team members." ASSESSMENT ASSESSMENT Assessment Date of Service: Jul 13, 2025 Billing Provider: RAFAEL VARGHESE MD Common Visit Codes: [id number] DISCH DAY >30min RAFAEL VARGHESE MD Jul 13, 2025 09:41
[2025-07-13] MEDS ORDERED: PANT40TA2 PO (11:48)
[2025-07-13] MEDS ORDERED: INSUINJ37 SC (11:48)
[2025-07-13] MEDS ORDERED: METO10TA3 PO (11:48)
[2025-07-13] MEDS ORDERED: ACET500T58 PO (11:48)
[2025-07-13] MEDS ORDERED: INSU100I61 SC (11:48)
[2025-07-13] MEDS ORDERED: HYDR-4902 PO (11:48)
[2025-07-13 13:00] VITALS: BP 137/83; PULSE 76; RESP 18; TEMP 98.6; O2SAT 99
== END 2025-07-13 13:23 | disposition home or self-care (01) | DRG 420 ==
LOC: EDBD 23:58 → ER 23:58 → OVERFLOW 07-11 02:32 → EDUNIT# 07-11 02:32 → DOU 07-11 07:55 → TELE-EAST 07-12 16:29
PROVIDERS: ADMIT Student in an Organized Health Care Education/Training Program; ATTEND Student in an Organized Health Care Education/Training Program
DX: E11.10 Type 2 diabetes mellitus with ketoacidosis without coma (principal); N17.0 Acute kidney failure with tubular necrosis; E11.43 Type 2 diabetes mellitus with diabetic autonomic (poly)neuropathy; K31.84 Gastroparesis; G89.29 Other chronic pain; Z79.4 Long term (current) use of insulin; Z91.128 Patient's intentional underdosing of medication regimen for other reason; A09 Infectious gastroenteritis and colitis, unspecified; Z79.899 Other long term (current) drug therapy
CPT/HCPCS: 36415; 36600; 74176; 80048; 80053; 81001; 82010; 82805; 82962; 83605; 83690; 83735; 83930; 85025; 87040; 87081; 96361; 96374; 96375; G0378; J1815; J1885; J2405; J2470; J3490

== ENCOUNTER 2025-07-20 04:00 | Emergency (ER) | payer MEDICAID ==
[~2025-07-20] VITALS: Ht 170.2 cm; Wt 75.0 kg
[~2025-07-20 04:00] MED LIST changes: +ACET500T58 PO; +HYDR-4902 PO; +INSU100I61 SC; +INSUINJ37 SC; +METO10TA3 PO
[2025-07-20 04:46] LABS: Base Excess 0.7 mmol/L (-2.0-3.0)
[2025-07-20 05:27] LABS: Hematocrit 44.0 % (41.0-53.0); Hemoglobin 15.1 g/dL (13.5-17.5); Mean Corpuscular Hemoglobin 29.0 pg (28.0-32.0); Mean Corpuscular Volume 84.7 fL (80.0-100.0); Nucleated Red Blood Cells % 0.1 %
[2025-07-20 05:40] LABS: Anion Gap 14 (5-15); Calcium 9.7 mg/dL (8.7-10.4); Carbon Dioxide 23 mmol/L (20-31)
[2025-07-20 05:45] LABS: BUN/Creatinine Ratio 18.0 (10.0-20.0); Magnesium 2.4 mg/dL (1.6-2.6)
[2025-07-20] MEDS: SODIUM CHLORIDE 0.9% 1,000 ML IV ONE ×3 (05:51→06:41)
[2025-07-20 05:53] LABS: Blood Urea Nitrogen 30 mg/dL (9-23); Chloride 87 mmol/L (98-107); Potassium 3.3 mmol/L (3.5-5.1); Sodium 124 mmol/L (136-145)
[2025-07-20 05:54] LABS: Glucose 524 mg/dL (74-106)
[2025-07-20 06:26] VITALS: PULSE 77; RESP 14; O2SAT 95
[2025-07-20] MEDS: ONDANSETRON HCL 4 MG/2 ML VIAL IV ONE (06:41)
[2025-07-20] MEDS: KETOROLAC TROMETH 30 MG/ML 1ML VIAL IV ONE (06:41)
[2025-07-20] MEDS: InsuLIN REG 1unit/0.01ml Soln (100units/ml) IV ONE (06:42)
[2025-07-20] MEDS: HYDROcodone-ACET 5/325MG TAB PO ONE (10:46)
--- NOTE | 2025-07-20 11:40 | ED.PDOC ---
History of present illness HPI Comments 45 y.o male with PMHX of DM and HTN, presents to the ED via EMS for a chief complaint of acute onset diffused abdominal pain associated with nausea, vomiting, and hyperglycemia.Patient was seen in this ED on 07/11/25, diagnosed with DKA and an acute gastroparesis flare-up. At that time, he was discharged home on a regimen of Protonix, Lantus 10 units daily, and Tylenol PRN. The patient reports his current symptoms started today and are similar in nature to his previous presentation. He states that his insulin dosage was decreased during his last admission and expresses concern that the current symptoms are a result of this dosage change. He denies any recent changes to his diet or other medications. Denies diarrhea, fever, chills, chest pain or SOB. 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, Medications, Allergies Allergies: Coded Allergies: NO KNOWN ALLERGIES (Unverified , 09/21/20) Home Meds Active Scripts Insulin Aspart (Novolog Flexpen Relion) 100 Unit/Ml Inj, 1-10 UNIT SC TIDWM PRN for 30 Days, #1 INJ 1 Refill [id number]; 180=4u; 240=6u; 300=8u; 350=10u; >400-12u+ED Prov:RAFAEL VARGHESE MD 07/13/25 Insulin Glargine (Lantus Solostar) 100 Unit/Ml Inj, 10 UNIT SC HS for 30 Days, #1 INJ 1 Refill Prov:RAFAEL VARGHESE MD 07/13/25 Pantoprazole Sodium Sesquihydr (Protonix) 40 Mg Tab, 40 MG PO DAILY for 30 Days, #30 TAB 0 Refills Prov:RAFAEL VARGHESE MD 07/13/25 Hydrocodone-Acetaminophen (Hydrocodone Bitartrate/AC 5-325 mg) 1 Tab Tab, 1 TAB PO TIDP PRN for 7 Days, #21 TAB Prov:RAFAEL VARGHESE MD 07/13/25 Acetaminophen (Acetaminophen) 500 Mg Tab, 500 MG PO QIDP PRN for 30 Days, #60 TAB 0 Refills Prov:RAFAEL VARGHESE MD 07/13/25 Metoclopramide Hcl (Metoclopramide Hcl) 10 Mg Tab, 10 MG PO BID for 30 Days, #60 TAB 0 Refills Prov:RAFAEL VARGHESE MD 07/13/25 Dicyclomine Hcl (BENTYL CAPSULE) 10 Mg Cp, 1 CAP PO TID for 14 Days, #42 CAP 11 Refills Prov:LAKEISHA BISWAS NP 06/11/25 Pantoprazole Sodium Sesquihydr (Protonix) 40 Mg Tab, 40 MG PO DAILY for 7 Days, #7 TAB Prov:REJI SANTIAGO MD 05/18/25 Metoclopramide HCl (Metoclopramide Hydrochlor) 10 Mg Tab, 10 MG PO BID for 10 Days, #20 TAB 0 Refills Prov:THOMAS ADAMS 04/18/25 Pantoprazole Sodium Sesquihydr (Pantoprazole Sodium) 40 Mg Tab, 40 MG PO DAILY for 30 Days, #30 TAB 0 Refills Prov:THOMAS ADAMS RESIDENT 04/18/25 Mupirocin (Pseudomonas Fluores (Mupirocin) 2 % Oin, 2 % EX BID for 30 Days, #1 O IN Prov:JOSÉ LUIS VAUGHAN MD 03/21/25 Blood Glucose Monitoring Suppl ([email or web address].com[employer]CH VERIO REFLECT w/Device) 1 Kit Kit, KIT XX TIDWM PRN, #1 Prov:JOSÉ LUIS VAUGHAN MD 03/21/25 Amlodipine Besylate (NORVASC TABLET) 5 Mg Tb, 5 MG PO DAILY for 30 Days, #30 TAB 5 Refills Prov:LORRAINE ACEVEDO MD 01/23/25 Sucralfate (CARAFATE SUSP) 1 Gm/10 Ml Ss, 1 GM PO BID@0600,2200 for 14 Days, #10 ML 5 Refills Prov:LORRAINE ACEVEDO MD 01/23/25 Insulin Glargine (Lantus) 100 Unit/Ml Inj, 80 UNIT SC HS for 96 Days, #10 ML 5 Refills Prov:LORRAINE ACEVEDO MD 01/23/25 Alum & Mag Hydrox-Simethicone (Gi Cocktail) 55 Ml Ss, 55 ML PO TID for 30 Days, #1 ML Prov:COREEN BULLARD RESIDENT 01/03/25 Alum & Mag Hydrox-Simethicone (Gi Cocktail) 55 Ml Ss, 55 ML PO BID for 10 Days, #1 ML Prov:COREEN BULLARD RESIDENT 01/02/25 Ergocalciferol (VITAMIN D 01086 UNIT) 50,000 [place], [address] UNIT PO QWEEKLY for 30 Days, #4 CAP Prov:COREEN BULLARD RESIDENT 11/28/24 Acetaminophen (Acetaminophen) 325 Mg Tab, 650 MG PO Q6HP PRN for 30 Days, #240 TAB Prov:COREEN BULLARD RESIDENT 11/28/24 Reported Medications Pramipexole Dihydrochloride (MIRAPEX ER) 3.75 Mg Tab, 3.75 MG PO, TAB 04/12/25 Information Source: Patient Mode of Arrival: EMS Timing: Hours Duration: Since onset [place]: Other History of: Diabetes, Insulin use Modifying factors: Nothing Associated signs and symptoms: Abdominal Pain, Nausea, Vomiting Past Medical History PAST MEDICAL HISTORY: DM, HTN Surgical History: Denies all surgeries Family History Family History: Reviewed,noncontributory to illness Social History Smoker: Non-Smoker Alcohol: Denies ETOH Use Drugs: Marijuana Lives In: Home Constitutional: denies: chills, diaphoresis, fatigue, fever, malaise, sweats, weakness, others EENTM: denies: blurred vision, double vision, ear bleeding, ear discharge, ear drainage, ear pain, ear ringing, eye pain, eye redness, hearing loss, mouth pain, mouth swelling, nasal discharge, nose bleeding, nose congestion, nose pain, photophobia, tearing, throat pain, throat swelling, voice changes, others Respiratory: denies: cough, hemoptysis, orthopnea, SOB at rest, shortness of breath, SOB with excertion, stridor, wheezing, others Cardiovascular: denies: chest pain, dizzy spells, diaphoresis, Dyspnea on exertion, edema, irregular heart beat, left arm pain, lightheadedness, palpitations, PND, syncope, others Gastrointestinal: reports: abdominal pain, nausea, vomiting; denies: abdomen distended, blood streaked bowels, constipated, diarrhea, dysphagia, difficulty swallowing, hematemesis, melena, poor appetite, poor fluid intake, rectal bleeding, rectal pain, others Genitourinary: denies: burning, dysuria, flank pain, frequency, hematuria, incontinence, penile discharge, penile sore, pain, testicle pain, testicle swelling, urgency, others Neurological: denies: dizziness, fainting, headache, left sided numbness, left sided weakness, numbness, paresthesia, pre-existing deficit, right sided numbness, right sided weakness, seizure, speech problems, tingling, tremors, weakness, others Musculoskeletal: denies: back pain, gout, joint pain, joint swelling, muscle pain, muscle stiffness, neck pain, others Integumetry: denies: bruises, change in color, change in hair/nails, dryness, laceration, lesions, lumps, rash, wounds, others Allergic/Immunocompromised: denies: Difficulty Healing, Frequent Infections, Hives, Itching, others Hematologic/Lymphatic: denies: anemia, blood clots, easy bleeding, easy bruising, swollen glands, others Endocrine: denies: excessive hunger, excessive sweating, excessive thirst, excessive urination, flushing, intolerance to cold, intolerance to heat, unexplained weight gain, unexplained weight loss, others Psychiatric: denies: anxiety, bipolar disorder, depression, hopeless, panic disorder, schizophrenia, sleepless, suicidal, others All Other Systems: Reviewed and Negative Physical Exam General Appearance: Moderate Distress HEENT: Normal ENT Inspection, Pharynx Normal, TMs Normal Neck: Full Range of Motion, Non-Tender, Normal, Normal Inspection Respiratory: Chest Non-Tender, Lungs Clear, No Accessory Muscle Use, No Respiratory Distress, Normal Breath Sounds Cardiovascular: No Edema, No JVD, No Murmur, No Gallop, Normal Peripheral Pulses, Regular Rate/Rhythm Breast Exam: Deferred Gastrointestinal: No Organomegaly, Non Tender, No Pulsatile Mass, Normal Bowel Sounds, Soft Genitalia: Deferred Pelvic: Deferred Rectal: Deferred Extremities: No calf tenderness, Normal capillary refill, Normal inspection, Normal range of motion, Non-tender, No pedal edema Musculoskeletal : Apperance: Normal Neurologic: Alert, soil surveyor II-XII nml as Tested, No Motor Deficits, Normal Affect, Normal Mood, No Sensory Deficits Cerebellar Function: Normal Reflexes: Normal Skin: Dry, Normal Color, Warm Peripheral Pulses: 3+ Radial (R), 3+ Radial (L) Lymphatic: No Adenopathy Was a procedure done? Was a procedure done?: No Differential Diagnosis (DM) Differential Diagnosis: Appendicitis, Dehydration, Diabetic Coma, DKA, Electrolyte Abnormality, Gastritis, Gastroenteritis, Hyperglycemia, Hyperosmolar State, Pancreatitis X-Ray, Labs, Meds, VS Vital Signs Date Time Temp Pulse Resp B/P (MAP) Pulse Ox O2 Delivery O2 Flow Rate FiO2 07/20/25 04:00 97.9 76 76 168/83 98 97.9 Lab Test 07/20/25 04:56 07/20/25 04:32 Range/Units White Blood Count 8.0 4.4-10.8 10^3/uL Red Blood Count 5.20 4.5-5.90 10^6/uL Hemoglobin 15.1 13.5-17.5 g/dL Hematocrit 44.0 41.0-53.0 % Mean Corpuscular Volume 84.7 80.0-100.0 fL Mean Corpuscular Hemoglobin 29.0 28.0-32.0 pg Mean Corpuscular Hemoglobin Concent 34.2 32.0-36.0 g/dL Red Cell Distribution Width 13.8 11.8-14.3 % Platelet Count 396 140-450 10^3/uL Mean Platelet Volume 7.6 6.9-10.8 fL Neutrophils (%) (Auto) 78.0 37.0-80.0 % Lymphocytes (%) (Auto) 13.6 10.0-50.0 % Monocytes (%) (Auto) 7.9 0.0-12.0 % Eosinophils (%) (Auto) 0.1 0.0-7.0 % Basophils (%) (Auto) 0.4 0.0-2.0 % Neutrophils # (Auto) 6.2 1.6-8.6 10 ^3/uL Lymphocytes # (Auto) 1.1 0.4-5.4 10 ^3/uL Monocytes # (Auto) 0.6 0-1.3 10 ^3/uL Eosinophils # (Auto) 0 0-0.8 10 ^3/uL Basophils # (Auto) 0 0-0.2 10 ^3/uL Nucleated Red Blood Cells 0.1 % Sodium Level 124 L 136-145 mmol/L Potassium Level 3.3 L 3.5-5.1 mmol/L Chloride Level 87 L 98-107 mmol/L Carbon Dioxide Level 23 20-31 mmol/L Anion Gap 14 5-15 Blood Urea Nitrogen 30 H 9-23 mg/dL Creatinine 1.67 H 0.700-1.30 mg/dL Glomerular Filtration Rate Calc 50 >90 mL/min BUN/Creatinine Ratio 18.0 10.0-20.0 Serum Glucose 524 *H 74-106 mg/dL Calcium Level 9.7 8.7-10.4 mg/dL Magnesium Level 2.4 1.6-2.6 mg/dL Beta-Hydroxybutyric Acid 1.797 H < 0.4 mmol/L Blood Gas Specimen Type Arterial Blood Gas Sample Site Right radial Blood Gas Patient Temperature 37.0 Arterial Blood Date Drawn [id number] Arterial Blood pH 7.444 7.350-7.450 Arterial Blood Partial Pressure CO2 36.4 35.0-48.0 mmHg Arterial Blood Partial Pressure O2 71.2 L 83.0-108.0 mmHg Arterial Blood HCO3 24.4 21.0-28.0 mmol/L Arterial Blood Oxygen Saturation 93.7 L 94.0-98.0 % Arterial Blood Base Excess 0.7 -2.0-3.0 mmol/L Arterial Blood Oxyhemoglobin 91.2 L 94.0-98.0 % Arterial Blood Carboxyhemoglobin 2.1 H 0.5-1.5 % Arterial Blood Methemoglobin 0.6 0.0-1.5 % Umer Test Modified Blood Gas Total Hemoglobin 15.50 13.5-17.5 g/dL Blood Gas Modality Room air FiO2 % 21.0 Current Medications Medications (Trade) Dose Ordered Sig/Adina Route Start Time Stop Time Status Last Admin Sodium Chloride 1,000 ml @ 1,000 mls/hr Q1H ONCE IV 07/20/25 04:30 07/20/25 05:29 DC 07/20/25 05:51 Patient alert. Complaining of abdominal pain. Blood sugar elevated. Vitals stable. Unknown whether he is taking his insulin. Recently discharged from this hospital. Reviewed his previous visit. Establish intravenous access. Was given fluids. Was given insulin. Was given pain medication. Was given Zofran. Explained to the patient. Continue monitoring. Time of 1ST Reevaluation: 06:17 Reevaluation 1ST: Unchanged Patient Education/Counseling: Diagnosis, Treatment, Prognosis Family Education/Counseling: No Family Present SEPSIS Sepsis Screen Date sepsis recognized/suspect: Jul 20, 2025 Time Sepsis recognized/suspect: 399 Recent Procedure: No On Antibiotic Therapy: No Respiratory Rate >20: No Heart Rate >90: No Temp<36 C (96.8 F) or >38.3 C: No SBP <90 or MAP <65 mmHG: No New Acute Mental Status Change: No Is the patient on CPAP, BIPAP,: No Physician Orders Abg W/ Co-Ox (07/20/25 04:25) Saline Lock (07/20/25 04:25) Urinalysis (07/20/25 04:25) Insulin R (Human) (Insulin R) (07/20/25 06:30) Sodium Chloride 0.9% (07/20/25 06:30) Ondansetron Hcl (Zofran) (07/20/25 06:30) Sodium Chloride 0.9% (07/20/25 06:30) Ketorolac Injection (Toradol Injection) (07/20/25 06:30) Vital Signs Date Time Temp Pulse Resp B/P (MAP) Pulse Ox O2 Delivery O2 Flow Rate FiO2 07/20/25 04:00 97.9 76 76 168/83 98 97.9 Laboratory Tests Test 07/20/25 04:56 White Blood Count 8.0 10^3/uL (4.4-10.8) Medications Medications Dose Ordered Sig/Adina Route Start Time Stop Time Status Last Admin Dose Admin Sodium Chloride 1,000 ml @ 1,000 mls/hr Q1H ONCE IV 07/20/25 04:30 07/20/25 05:29 DC 07/20/25 05:51 Departure 1 Departure Time of Disposition: 06:28 Impression: Primary Impression: Uncontrolled diabetes mellitus Qualified Codes: E13.65 - Other specified diabetes mellitus with hyperglycemia Disposition: 09 ADMITTED INPATIENT Admit to: Med Surg Condition: Guarded Critical Care Note Critical Care Time?: Yes (90 min-critical care time only) Stability Stability form required: No I personally scribed for REJI SANTIAGO MD ([email or web address]) on 07/20/25 at 06:25. Electronically submitted by Chetna Marin ([facility]). REJI SANTIAGO MD Jul 20, 2025 06:25
[2025-07-20 11:58] VITALS: BP 157/91; PULSE 88; RESP 18; TEMP 98.2; O2SAT 97
== END 2025-07-20 11:59 | disposition home or self-care (01) ==
LOC: EDBD 04:00 → ER 04:00
DX: E13.65 Other specified diabetes mellitus with hyperglycemia (principal); Z79.899 Other long term (current) drug therapy; I10 Essential (primary) hypertension
CPT/HCPCS: 36415; 36600; 80048; 82010; 82805; 82947; 83735; 85025; 96361; 96374; 96375; 99284; J1815; J1885; J2405; J7030; 82962

== ENCOUNTER 2025-08-10 07:15 | Inpatient (IN) | payer MEDICAID ==
[~2025-08-10] VITALS: Ht 170.2 cm; Wt 77.8 kg
[2025-08-10 07:33] VITALS: PULSE 100; RESP 24; O2SAT 96
--- NOTE | 2025-08-10 07:40 | ED.PDOC ---
GI ASSESSMENT HPI Comments 45 y.o male with PMHx of chronic gastritis, DM and HTN, presents to the ED via EMS for a chief complaint of diffused abdominal pain associated with intermittent episodes of nausea, vomiting, and diarrhea x 2 days. Patient describes pain as sharp, constant, and has no alleviating factors despite taking Tylenol and Ibuprofen. He denies any rectal bleeding, hematemesis, fever, or chills. Chief Complaint: Abdominal Pain Time Seen by MD: 07:31 Primary Care Provider: UNKNOWN Reviewed Notes: Nurses Notes, Dental Hygiene Administrative Assistant Notes, Medications, Allergies Allergies: Coded Allergies: NO KNOWN ALLERGIES (Unverified , 09/21/20) Home Meds Active Scripts Insulin Aspart (Novolog Flexpen Relion) 100 Unit/Ml Inj, 1-10 UNIT SC TIDWM PRN for 30 Days, #1 INJ 1 Refill [id number]; 180=4u; 240=6u; 300=8u; 350=10u; >400-12u+ED Prov:RAFAEL VARGHESE MD 07/13/25 Insulin Glargine (Lantus Solostar) 100 Unit/Ml Inj, 10 UNIT SC HS for 30 Days, #1 INJ 1 Refill Prov:RAFAEL VARGHESE MD 07/13/25 Pantoprazole Sodium Sesquihydr (Protonix) 40 Mg Tab, 40 MG PO DAILY for 30 Days, #30 TAB 0 Refills Prov:RAFAEL VARGHESE MD 07/13/25 Hydrocodone-Acetaminophen (Hydrocodone Bitartrate/AC 5-325 mg) 1 Tab Tab, 1 TAB PO TIDP PRN for 7 Days, #21 TAB Prov:RAFAEL VARGHESE MD 07/13/25 Acetaminophen (Acetaminophen) 500 Mg Tab, 500 MG PO QIDP PRN for 30 Days, #60 TAB 0 Refills Prov:RAFAEL VARGHESE MD 07/13/25 Metoclopramide Hcl (Metoclopramide Hcl) 10 Mg Tab, 10 MG PO BID for 30 Days, #60 TAB 0 Refills Prov:RAFAEL VARGHESE MD 07/13/25 Dicyclomine Hcl (BENTYL CAPSULE) 10 Mg Cp, 1 CAP PO TID for 14 Days, #42 CAP 11 Refills Prov:LAKEISHA BSIWAS [employer] 06/11/25 Pantoprazole Sodium Sesquihydr (Protonix) 40 Mg Tab, 40 MG PO DAILY for 7 Days, #7 TAB Prov:REJI SANTIAGO MD 05/18/25 Metoclopramide HCl (Metoclopramide Hydrochlor) 10 Mg Tab, 10 MG PO BID for 10 Days, #20 TAB 0 Refills Prov:[facility] 04/18/25 Pantoprazole Sodium Sesquihydr (Pantoprazole Sodium) 40 Mg Tab, 40 MG PO DAILY for 30 Days, #30 TAB 0 Refills Prov:[facility] 04/18/25 Mupirocin (Pseudomonas Fluores (Mupirocin) 2 % Oin, 2 % EX BID for 30 Days, #1 OIN Prov:JOSÉ LUIS VAUGHAN MD 03/21/25 Blood Glucose Monitoring Suppl (Datamolino VERIO REFLECT w/Device) 1 Kit Kit, KIT XX TIDWM PRN, #1 Prov:JOSÉ LUIS VAUGHAN MD 03/21/25 Amlodipine Besylate (NORVASC TABLET) 5 Mg Tb, 5 MG PO DAILY for 30 Days, #30 TAB 5 Refills Prov:LORRAINE ACEVEDO MD 01/23/25 Sucralfate (CARAFATE SUSP) 1 Gm/10 Ml Ss, 1 GM PO BID@0600,2200 for 14 Days, #10 ML 5 Refills Prov:LORRAINE ACEVEDO MD 01/23/25 Insulin Glargine (Lantus) 100 Unit/Ml Inj, 80 UNIT SC HS for 96 Days, #10 ML 5 Refills Prov:LORRAINE ACEVEDO MD 01/23/25 Alum & Mag Hydrox-Simethicone (Gi Cocktail) 55 Ml Ss, 55 ML PO TID for 30 Days, #1 ML Prov:COREEN BULLARD 01/03/25 Alum & Mag Hydrox-Simethicone (Gi Cocktail) 55 Ml Ss, 55 ML PO BID for 10 Days, #1 ML Prov:COREEN BULLARD 01/02/25 Ergocalciferol (VITAMIN D 20005 UNIT) 50,000 [place], [address] UNIT PO QWEEKLY for 30 Days, #4 CAP Prov:COREEN BULLARD 3/11/25 Acetaminophen (Acetaminophen) 325 Mg Tab, 650 MG PO Q6HP PRN for 30 Days, #240 TAB Prov:TIN JohnsonCOREEN RESIDENT 11/28/24 Reported Medications Pramipexole Dihydrochloride (MIRAPEX ER) 3.75 Mg Tab, 3.75 MG PO, TAB 04/12/25 Information Source: Patient, Emergency Med Personnel Mode of Arrival: EMS Timing: Days (2) Duration: Since onset Quality: Sharp Vomitus: Hard Stool: Loose Severity: Moderate Recent: None Recent Hx of: None Pain Location: Diffuse Modifying Factors: Nothing Associated sign and symptoms: Nausea, Vomiting, Diarrhea, Abdominal Pain Past Medical History PAST MEDICAL HISTORY: DM, HTN Past Medical History (Other): chronic gastritis Surgical History: Denies all surgeries Family History Family History: Reviewed,noncontributory to illness Social History Smoker: Non-Smoker Alcohol: Denies ETOH Use Drugs: Marijuana Lives In: Home Constitutional: denies: chills, diaphoresis, fatigue, fever, malaise, sweats, weakness, others EENTM: denies: blurred vision, double vision, ear bleeding, ear discharge, ear drainage, ear pain, ear ringing, eye pain, eye redness, hearing loss, mouth pain, mouth swelling, nasal discharge, nose bleeding, nose congestion, nose pain, photophobia, tearing, throat pain, throat swelling, voice changes, others Respiratory: denies: cough, hemoptysis, orthopnea, SOB at rest, shortness of breath, SOB with excertion, stridor, wheezing, others Cardiovascular: denies: chest pain, dizzy spells, diaphoresis, Dyspnea on exertion, edema, irregular heart beat, left arm pain, lightheadedness, palpitations, PND, syncope, others Gastrointestinal: reports: abdominal pain, diarrhea, nausea, vomiting; denies: abdomen distended, blood streaked bowels, constipated, dysphagia, difficulty swallowing, hematemesis, melena, poor appetite, poor fluid intake, rectal bleeding, rectal pain, others Genitourinary: denies: burning, dysuria, flank pain, frequency, hematuria, incontinence, penile discharge, penile sore, pain, testicle pain, testicle swelling, urgency, others Neurological: denies: dizziness, fainting, headache, left sided numbness, left sided weakness, numbness, paresthesia, pre-existing deficit, right sided numbness, right sided weakness, seizure, speech problems, tingling, tremors, weakness, others Musculoskeletal: denies: back pain, gout, joint pain, joint swelling, muscle pain, muscle stiffness, neck pain, others Integumetry: denies: bruises, change in color, change in hair/nails, dryness, laceration, lesions, lumps, rash, wounds, others Allergic/Immunocompromised: denies: Difficulty Healing, Frequent Infections, Hives, Itching, others Hematologic/Lymphatic: denies: anemia, blood clots, easy bleeding, easy bruising, swollen glands, others Endocrine: denies: excessive hunger, excessive sweating, excessive thirst, excessive urination, flushing, intolerance to cold, intolerance to heat, unexplained weight gain, unexplained weight loss, others Psychiatric: denies: anxiety, bipolar disorder, depression, hopeless, panic disorder, schizophrenia, sleepless, suicidal, others All Other Systems: Reviewed and Negative Physical Exam General Appearance: Moderate Distress, Other (appears uncomfortable ) HEENT: Normal ENT Inspection, Pharynx Normal, TMs Normal Neck: Full Range of Motion, Non-Tender, Normal, Normal Inspection Respiratory: Chest Non-Tender, Lungs Clear, No Accessory Muscle Use, No Respiratory Distress, Normal Breath Sounds Cardiovascular: No Edema, No JVD, No Murmur, No Gallop, Normal Peripheral Pulses, Regular Rate/Rhythm Breast Exam: Deferred Gastrointestinal: Diffuse, No Organomegaly, No Pulsatile Mass, Tenderness Genitalia: Deferred Pelvic: Deferred Rectal: Deferred Extremities: No calf tenderness, Normal capillary refill, Normal inspection, Normal range of motion, Non-tender, No pedal edema Musculoskeletal : Apperance: Normal Neurologic: Alert, grain origination specialist II-XII nml as Tested, No Motor Deficits, Normal Affect, Normal Mood, No Sensory Deficits Cerebellar Function: Normal Reflexes: Normal Skin: Dry, Normal Color, Warm Lymphatic: No Adenopathy Was a procedure done? Was a procedure done?: No GI differential Dx Differential Diagnosis: Esophagitis, Gastritis/PUD, Gastroenteritis, Inflammatory BD X-Ray, Labs, Meds, VS Vital Signs Date Time Temp Pulse Resp B/P (MAP) Pulse Ox O2 Delivery O2 Flow Rate FiO2 08/10/25 10:30 73 16 144/87 (106) 95 08/10/25 09:22 77 18 132/79 08/10/25 08:18 92 16 138/103 08/10/25 07:33 98.7 99 24 138/103 (115) 97 98.7 08/10/25 07:33 100 24 96 Room Air* 0 21 08/10/25 07:20 98.7 88 18 130/76 96 98.7 Lab Test 08/10/25 08:15 08/10/25 07:30 Range/Units White Blood Count 16.2 H 4.4-10.8 10^3/uL Red Blood Count 5.27 4.5-5.90 10^6/uL Hemoglobin 15.3 13.5-17.5 g/dL Hematocrit 44.4 41.0-53.0 % Mean Corpuscular Volume 84.2 80.0-100.0 fL Mean Corpuscular Hemoglobin 29.0 28.0-32.0 pg Mean Corpuscular Hemoglobin Concent 34.5 32.0-36.0 g/dL Red Cell Distribution Width 14.1 11.8-14.3 % Platelet Count 419 140-450 10^3/uL Mean Platelet Volume 7.3 6.9-10.8 fL Neutrophils (%) (Auto) 83.0 H 37.0-80.0 % Lymphocytes (%) (Auto) 10.3 10.0-50.0 % Monocytes (%) (Auto) 6.2 0.0-12.0 % Eosinophils (%) (Auto) 0.0 0.0-7.0 % Basophils (%) (Auto) 0.5 0.0-2.0 % Neutrophils # (Auto) 13.4 H 1.6-8.6 10 ^3/uL Lymphocytes # (Auto) 1.7 0.4-5.4 10 ^3/uL Monocytes # (Auto) 1.0 0-1.3 10 ^3/uL Eosinophils # (Auto) 0 0-0.8 10 ^3/uL Basophils # (Auto) 0.1 0-0.2 10 ^3/uL Nucleated Red Blood Cells 0.0 % Sodium Level 129 L 136-145 mmol/L Potassium Level 4.6 3.5-5.1 mmol/L Chloride Level 87 L 98-107 mmol/L Carbon Dioxide Level 27 20-31 mmol/L Anion Gap 15 5-15 Blood Urea Nitrogen 47 H 9-23 mg/dL Creatinine 3.34 H 0.700-1.30 mg/dL Glomerular Filtration Rate Calc 22 >90 mL/min BUN/Creatinine Ratio 14.1 10.0-20.0 Serum Glucose 107 H 74-106 mg/dL Calcium Level 10.5 H 8.7-10.4 mg/dL Total Bilirubin 0.8 0.2-1.0 mg/dL Aspartate Amino Transferase (AST) 111 H 13-40 U/L Alanine Aminotransferase (ALT) 44 H 7-40 U/L Alkaline Phosphatase 102 46-116 U/L Total Protein 8.7 H 5.7-8.2 g/dL Albumin 5.3 H 3.2-4.8 g/dL Lipase 23 12-53 U/L Urine Color Light-yellow Yellow Urine Clarity Clear Clear Urine pH 5.5 5.0-9.0 Urine Specific Delta 1.021 1.001-1.035 Urine Protein Trace H Negative Urine Ketones Negative Negative Urine Blood 2+ H Negative /uL Urine Nitrite Negative Negative Urine Bilirubin Negative Negative Urine Urobilinogen Normal Negative mg/dL Urine Leukocyte Esterase Negative Negative /uL Urine RBC 1 0 - 3 /hpf Urine Microscopic WBC 5 H 0-3 /HPF Urine Squamous Epithelial Cells None seen <5 /hpf Urine Bacteria None seen None Seen /hpf Urine Osmolality 373 mOsm/kg Urine Random Microalbumin Pending Urine Creatinine 104.53 30.0-125.0 mg/dL Urine Protein/Creatinine Ratio 0.41 Urine Glucose Normal Normal mg/dL Urine Total Protein 42.8 H 1-14 mg/dL Current Medications Medications (Trade) Dose Ordered Sig/[facility] Route Start Time Stop Time Status Last Admin Morphine Sulfate 4 mg ONCE ONCE IV 08/10/25 08:00 08/10/25 08:02 DC 08/10/25 08:18 Sodium Chloride 1,000 ml @ 1,000 mls/hr Q1H ONCE IV 08/10/25 08:00 08/10/25 08:59 DC 08/10/25 08:12 Ondansetron HCl (Zofran) 4 mg ONCE ONCE IV 08/10/25 08:00 08/10/25 08:03 DC 08/10/25 08:18 Cefazolin Sodium/ Dextrose 50 ml @ 50 mls/hr ONCE ONCE IV 08/10/25 11:30 08/10/25 12:29 DC 08/10/25 11:49 Metronidazole 100 ml @ 100 mls/hr ONCE ONCE IV 08/10/25 11:30 08/10/25 12:29 DC 08/10/25 14:03 Morphine Sulfate 4 mg ONCE ONCE IV 08/10/25 11:30 08/10/25 11:31 DC 08/10/25 11:50 Sodium Chloride 1,000 ml @ 1,000 mls/hr Q1H ONCE IV 08/10/25 11:30 08/10/25 12:29 DC 08/10/25 11:49 Ondansetron HCl (Zofran) 4 mg ONCE ONCE IV 08/10/25 11:30 08/10/25 11:31 DC 08/10/25 11:49 Time of 1ST Reevaluation: 07:37 Reevaluation 1ST: Unchanged Patient Education/Counseling: Diagnosis, Treatment, Prognosis Family Education/Counseling: No Family Present SEPSIS Sepsis Screen Date sepsis recognized/suspect: Aug 10, 2025 Time Sepsis recognized/suspect: 719 Recent Procedure: No On Antibiotic Therapy: No Respiratory Rate >20: No Heart Rate >90: No Temp<36 C (96.8 F) or >38.3 C: No SBP <90 or MAP <65 mmHG: No New Acute Mental Status Change: No Is the patient on CPAP, BIPAP,: No Physician Orders Ct Ab Pel Wo Con-No Oral Or Iv (08/10/25 09:44) * Surgical Consult (08/10/25 ) Vital Signs Date Time Temp Pulse Resp B/P (MAP) Pulse Ox O2 Delivery O2 Flow Rate FiO2 08/10/25 10:30 73 16 144/87 (106) 95 08/10/25 09:22 77 18 132/79 08/10/25 08:18 92 16 138/103 08/10/25 07:33 98.7 99 24 138/103 (115) 97 98.7 08/10/25 07:33 100 24 96 Room Air* 0 21 08/10/25 07:20 98.7 88 18 130/76 96 98.7 Laboratory Tests Test 08/10/25 08:15 White Blood Count 16.2 10^3/uL (4.4-10.8) H Medications Medications Dose Ordered Sig/Adina Route Start Time Stop Time Status Last Admin Dose Admin Cefazolin Sodium/ Dextrose 50 ml @ 50 mls/hr ONCE ONCE IV 08/10/25 11:30 08/10/25 12:29 DC 08/10/25 11:49 Metronidazole 100 ml @ 100 mls/hr ONCE ONCE IV 08/10/25 11:30 08/10/25 12:29 DC 08/10/25 14:03 Morphine Sulfate 4 mg ONCE ONCE IV 08/10/25 08:00 08/10/25 08:02 DC 08/10/25 08:18 Morphine Sulfate 4 mg ONCE ONCE IV 08/10/25 11:30 08/10/25 11:31 DC 08/10/25 11:50 Ondansetron HCl 4 mg ONCE ONCE IV 08/10/25 08:00 08/10/25 08:03 DC 08/10/25 08:18 Ondansetron HCl 4 mg ONCE ONCE IV 08/10/25 11:30 08/10/25 11:31 DC 08/10/25 11:49 Sodium Chloride 1,000 ml @ 1,000 mls/hr Q1H ONCE IV 08/10/25 08:00 08/10/25 08:59 DC 08/10/25 08:12 Sodium Chloride 1,000 ml @ 1,000 mls/hr Q1H ONCE IV 08/10/25 11:30 08/10/25 12:29 DC 08/10/25 11:49 Departure 1 Departure Time of Disposition: 17:44 (Patient presented with abdominal pain that was concerning for possible appendicits, gastritis, cholecystitis, colitis, gastroenteritis, sbo, or orther possible surgical emergency. Data: 1. I ordered and reviewed the result of at least 3 labs including a CBC, BMP, and Urinalysis. 2. I independently interpreted the following tests: CT Abdomen and Pelvis is concerning for acute cholecystitis. Patient's bilirubin and liver enzymes are not elevated so less likely requires ERCP. Risk:This patient has a high risk of morbidity due to further diagnostic testing or treatment and may suffer from an acute abdominal process disorder. Workup reveals concern for acute cholecystitis and intractable abdominal pain and patient should be admitted for further workup. and possible expert consultation. ) Impression: Primary Impression: Acute cholecystitis Additional Impressions: Intractable abdominal pain Nausea and vomiting Disposition: ADMITTED INPATIENT Admit to: Tele Condition: Guarded Critical Care Note Critical Care Time?: Yes Critical care comment: Intractable abdominal pain Authorized and Performed by: Tasha Harris MD Total critical care time: Approximately 39 minutes Due to a high probability of clinically significant, life threatening deterioration, the patient required my highest level of preparedness to intervene emergently and I personally spent this critical care time directly and personally managing the patient. This critical care time included obtaining a history; examining the patient; pulse oximetry; ordering and review of studies; arranging urgent treatment with development of a management plan; evaluation of patient's response to treatment; frequent reassessment; and, discussions with other providers. This critical care time was performed to assess and manage the high probability of imminent, life-threatening deterioration that could result in multi-organ failure. It was exclusive of separately billable procedures and treating other patients and teaching time. Please see my other sections and the rest of the note for further information on patient assessment and treatment. Stability Stability form required: No I personally scribed for TASHA HARRIS MD ([email or web address]) on 08/10/25 at 07:40. Electronically submitted by Chetna Marin ([facility]). TASHA HARRIS MD Aug 10, 2025 07:40
[2025-08-10] MEDS: SODIUM CHLORIDE 0.9% 1,000 ML IV ONE ×3 (08:12→14:19)
[2025-08-10] MEDS: MORPHINE SULFATE 4 MG/ML SYR/VIAL ONE ×2 (08:17→11:51)
[2025-08-10] MEDS: ONDANSETRON HCL 4 MG/2 ML VIAL IV ONE ×2 (08:18→11:49)
[2025-08-10] MEDS: MORPHINE SULFATE 4 MG/ML SYR/VIAL IV ONE ×2 (08:18→11:50)
[2025-08-10 08:46] LABS: Hematocrit 44.4 % (41.0-53.0); Hemoglobin 15.3 g/dL (13.5-17.5); Mean Corpuscular Hemoglobin 29.0 pg (28.0-32.0); Mean Corpuscular Volume 84.2 fL (80.0-100.0); Nucleated Red Blood Cells % 0.0 %
[2025-08-10 09:03] LABS: Alkaline Phosphatase 102 U/L (46-116); Anion Gap 15 (5-15); BUN/Creatinine Ratio 14.1 (10.0-20.0); Bilirubin, Total 0.8 mg/dL (0.2-1.0); Carbon Dioxide 27 mmol/L (20-31); Lipase 23 U/L (12-53); Potassium 4.6 mmol/L (3.5-5.1)
[2025-08-10 09:04] LABS: Alanine Aminotransferase 44 U/L (7-40); Albumin 5.3 g/dL (3.2-4.8); Blood Urea Nitrogen 47 mg/dL (9-23); Calcium 10.5 mg/dL (8.7-10.4); Chloride 87 mmol/L (98-107); Glucose 107 mg/dL (74-106); Sodium 129 mmol/L (136-145); Total Protein 8.7 g/dL (5.7-8.2)
--- NOTE | 2025-08-10 10:36 | DVH ---
Indication: ABDOMINAL PAIN Technique: CT axial images of the abdomen and pelvis are obtained without contrast. Coronal and sagittal reformats were obtained. Radiation Dose Information: CTDI volume is 7.8 mGy. Dose-length product is 423 hours mGy*cm Comparison: CT CT AB PEL WO CON-NO ORAL OR IV on DOS: 07/11/25, FINDINGS: There is limited interpretation of the abdomen and pelvis without administration of intravenous contrast. Lung bases demonstrate no pleural effusion. Adrenal glands, spleen, pancreas, liver unremarkable in shape. Hepatic steatosis. Gallbladder distention. No hydronephrosis/nephroliths Stomach partially distended. Small bowel loops normal in caliber. Moderate volume stool in the colon. Colonic diverticular disease. Normal appendix. Abdominal aortic atherosclerotic disease. Bladder partially distended. No free pelvic fluid. No inguinal lymphadenopathy. Moderate bilateral sacroiliac degenerative joint disease. [id number] lumbar degenerative disc disease most pronounced at L5-S1.4 mm disc protrusion L5-S1. IMPRESSION: Limited evaluation without contrast. Colonic diverticular disease. Hydropic/ distended gallbladder. Recommend abdominal ultrasound to further evaluate. Moderate volume stool within the colon. Other findings as described
[2025-08-10] MEDS: ONDANSETRON HCL 4 MG/2 ML VIAL ONE ×3 (11:01→17:13)
[2025-08-10] MEDS ORDERED: ACETAMINOPHEN 325 MG TAB PO PRN (11:45)
[2025-08-10] MEDS: ceFAZolin 2 GM/D5W50ml 50 ML IV ONE ×2 (11:49)
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
--- NOTE | 2025-08-10 12:08 | DVH ---
CLINICAL HISTORY: R/o Cholecystitis TECHNIQUE: Complete ultrasound exam of the abdomen was performed. COMPARISON: US GALLBLADDER on DOS: 06/09/25, US KIDNEY on DOS: 09/07/24, US LIVER on DOS: 08/06/24, US KIDNEY on DOS: 06/10/24, US ABDOMEN COMPLETE SONOGRAM on DOS: 04/14/24 FINDINGS: The liver is increased in echogenicity with no focal parenchymal abnormality. The liver measures 14.2 cm. The common duct is 8 mm. Gallbladder is distended without shadowing stone or tenderness. The pancreas is not seen. No ascites or fluid collection. The right kidney is 10.5 cm and the left kidney is 10.9 cm. No hydronephrosis, increased echogenicity, shadowing stone, or focal lesion. Spleen is within normal limits. The aorta and IVC are normal caliber and patent. The bladder is grossly unremarkable. IMPRESSION: Diffuse hepatic steatosis.Dilated 8 mm common duct and distended gallbladder. Please correlate with laboratory values and consider MRCP if warranted.
--- NOTE | 2025-08-10 12:30 | DVH ---
CHEST RADIOGRAPH Indication: Sepsis Technique: Single frontal view of the chest was obtained Comparison: XY CHEST PORTABLE on DOS: 01/01/25, XY CHEST XRAY 1 VIEW on DOS: 11/26/24, XY CHEST PORTABLE on DOS: 09/07/24 FINDINGS: Lines and Tubes: None Lungs: No focal consolidation. Pleura: No effusion. No pneumothorax. Cardiomediastinal contours: Unremarkable Bones: No acute osseous abnormality. IMPRESSION: 1. No acute cardiopulmonary disease.
[2025-08-10 14:01] LABS: Alanine Aminotransferase 37 U/L (7-40); Albumin 4.5 g/dL (3.2-4.8); Alkaline Phosphatase 86 U/L (46-116); Anion Gap 15 (5-15); BUN/Creatinine Ratio 12.9 (10.0-20.0); Calcium 9.2 mg/dL (8.7-10.4); Carbon Dioxide 25 mmol/L (20-31); Glucose 98 mg/dL (74-106); Potassium 4.0 mmol/L (3.5-5.1); Total Protein 7.8 g/dL (5.7-8.2)
[2025-08-10 14:02] LABS: Bilirubin, Total 0.5 mg/dL (0.2-1.0)
[2025-08-10 14:06] LABS: Blood Urea Nitrogen 43 mg/dL (9-23); Chloride 91 mmol/L (98-107); Sodium 131 mmol/L (136-145)
[2025-08-10] MEDS: SODIUM CHLORIDE 0.9% 1,000 ML IV SCH (14:19)
[2025-08-10] MEDS: MORPHINE SULFATE INJ 2 MG/ml SYRG IV PRN (14:49)
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
[2025-08-10 16:52] LABS: Urine Protein, UAD TRACE (Negative)
[2025-08-10 16:53] LABS: Protein, Urine 42.8 mg/dL (1-14)
[2025-08-10 16:54] LABS: Protein, Urine 41.5 mg/dL (1-14)
[2025-08-10] MEDS: InsuLIN REG 1unit/0.01ml Soln (100units/ml) SC SCH (17:00)
[2025-08-10] MEDS: ACCU-CHEK COMFORT CURVE STRIP VI SCH (17:12)
[2025-08-10] MEDS: ONDANSETRON HCL 4 MG/2 ML VIAL IV PRN (17:13)
[2025-08-10 18:08] VITALS: BP 116/62; PULSE 75; PULSE 77; RESP 16; TEMP 97; O2SAT 98
[2025-08-10 19:40] VITALS: PULSE 85; RESP 17; O2SAT 96
[2025-08-10 21:00] VITALS: BP 141/90; PULSE 86; RESP 17; TEMP 99.1; O2SAT 95
[2025-08-10] MEDS: DEXTROSE (50%) 50ML SYRG IV PRN (21:56)
[2025-08-11 01:00] VITALS: BP 140/83; PULSE 82; RESP 16; TEMP 98; O2SAT 100
[2025-08-11] MEDS: D5W/SOD CHLO 0.9% 1,000 ML IV SCH (02:21)
[2025-08-11 05:00] VITALS: BP 125/84; PULSE 85; RESP 17; TEMP 98.3; O2SAT 99
[2025-08-11 07:30] VITALS: PULSE 70; RESP 17; O2SAT 96
[2025-08-11 07:38] LABS: Hematocrit 38.1 % (41.0-53.0); Hemoglobin 12.9 g/dL (13.5-17.5); Mean Corpuscular Hemoglobin 29.3 pg (28.0-32.0); Mean Corpuscular Volume 86.7 fL (80.0-100.0); Nucleated Red Blood Cells % 0.1 %
[2025-08-11 08:01] LABS: Alanine Aminotransferase 37 U/L (7-40); Alkaline Phosphatase 72 U/L (46-116); Anion Gap 8 (5-15); BUN/Creatinine Ratio 19.6 (10.0-20.0); Blood Urea Nitrogen 21 mg/dL (9-23); Calcium 8.8 mg/dL (8.7-10.4); Carbon Dioxide 30 mmol/L (20-31); Chloride 100 mmol/L (98-107); Glucose 91 mg/dL (74-106); Magnesium 2.2 mg/dL (1.6-2.6); Potassium 4.2 mmol/L (3.5-5.1); Sodium 138 mmol/L (136-145); Total Protein 6.7 g/dL (5.7-8.2)
[2025-08-11 08:02] LABS: Albumin 3.9 g/dL (3.2-4.8)
[2025-08-11 08:03] LABS: Bilirubin, Total 1.1 mg/dL (0.2-1.0); HDL Cholesterol 47 mg/dL (40-59)
[2025-08-11 08:06] LABS: Cholesterol 259 mg/dL (< 200); INR 1.0 (0.9-1.15); Partial Thromboplastin Time 26.7 SEC (24.5-34.5); Prothrombin Time 10.6 sec (9.3-11.8); Triglycerides 179 mg/dL (< 150)
[2025-08-11] MEDS: ENOXAPARIN SOD 40 MG/0.4 ML SYRINGE SC SCH (10:00)
--- NOTE | 2025-08-11 13:07 | DVH ---
EXAM: MRI MRCP MRI COMPARISON: None INDICATION: Rule out Choledocholithiasis TECHNIQUE: MRI abdomen was performed with and without intravenous contrast. FINDINGS: Visualized lower thorax: Limited imaging of the thorax demonstrates no suspicious pleural or parenchymal disease. Liver: Normal and liver morphology and signal intensity. No hepatic lesions. Gallbladder: No evidence of cholelithiasis or gallbladder wall thickening. Biliary system: There is no intrahepatic or extrahepatic bile duct dilatation. Spleen: Normal in morphology and signal intensity. Pancreas: Normal in morphology and signal intensity. Adrenal glands: Normal in morphology and signal intensity. Kidneys: The kidneys are symmetric in size and appearance with no suspicious lesions. No hydronephrosis. Urinary tract: The ureters, as visualized, are normal in course and caliber. The bladder is within normal limits. GI tract: The bowel, as visualized, is within normal limits. Pelvis: Unremarkable pelvic organs. Peritoneum: No ascites. Lymph nodes: No enlarged lymph nodes. Vascular: Normal caliber of the abdominal aorta. Musculoskeletal: The bone marrow signal intensity is within normal limits. IMPRESSION: 1. No evidence of common duct obstructing stone
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
[2025-08-11] MEDS: HYDROcodone-ACET 10/325MG TAB PO PRN (15:20)
--- NOTE | 2025-08-11 16:50 | DVHINCON2 ---
Consultation - Surgical Date Seen: Aug 11, 2025 Referring Physician Reason for Consultation Cholecystitis History of Present Illness History of Present Illness Mr. Palmer is a 45-year-old male who presents to the ED with epigastric abdominal pain, that has been ongoing for the past 2 years on a daily basis. Patient states that the pain starts in the epigastric area and then goes to the entire abdominal area. Pain is not associated with food, and denies right upper quadrant abdominal pain. States that he has a associated nausea vomiting and diarrhea, states that there is some blood sometimes on the vomit, but has not noticed any blood in the stool. No history of peptic ulcer disease, and last endoscopy was on March of this year, mild gastritis was the only pathology noted. Denies fevers, chills, changes in urinary habits, loss of appetite, weight loss. Past Medical/Surgical History Past Medical/Surgical History Past medical history diabetes [place] past surgical history low back surgery, neck fusion Family and Social History Family and Social History Family history noncontributory ETOH/T Ob denies Drugs marijuana Allergies and medications Allergies: Coded Allergies: NO KNOWN ALLERGIES (Unverified , 09/21/20) Home Meds Active Scripts Insulin Aspart (Novolog Flexpen Relion) 100 Unit/Ml Inj, 1-10 UNIT SC TIDWM PRN for 30 Days, #1 INJ 1 Refill FQ025=7tqvs; 180=4u; 240=6u; 300=8u; 350=10u; >400-12u+ED Prov:RAFAEL VARGHESE MD 07/13/25 Insulin Glargine (Lantus Solostar) 100 Unit/Ml Inj, 10 UNIT SC HS for 30 Days, #1 INJ 1 Refill Prov:RAFAEL VARGHESE MD 07/13/25 Pantoprazole Sodium Sesquihydr (Protonix) 40 Mg Tab, 40 MG PO DAILY for 30 Days, #30 TAB 0 Refills Prov:RAFAEL VARGHESE MD 07/13/25 Hydrocodone-Acetaminophen (Hydrocodone Bitartrate/AC 5-325 mg) 1 Tab Tab, 1 TAB PO TIDP PRN for 7 Days, #21 TAB Prov:RAFAEL VARGHESE MD 07/13/25 Acetaminophen (Acetaminophen) 500 Mg Tab, 500 MG PO QIDP PRN for 30 Days, #60 TAB 0 Refills Prov:RAFAEL VARGHESE MD 07/13/25 Metoclopramide Hcl (Metoclopramide Hcl) 10 Mg Tab, 10 MG PO BID for 30 Days, #60 TAB 0 Refills Prov:RAFAEL VARGHESE MD 07/13/25 Dicyclomine Hcl (BENTYL CAPSULE) 10 Mg Cp, 1 CAP PO TID for 14 Days, #42 CAP 11 Refills Prov:LAKEISHA BISWAS NP 06/11/25 Pantoprazole Sodium Sesquihydr (Protonix) 40 Mg Tab, 40 MG PO DAILY for 7 Days, #7 TAB Prov:REJI SANTIAGO MD 05/18/25 Metoclopramide HCl (Metoclopramide Hydrochlor) 10 Mg Tab, 10 MG PO BID for 10 Days, #20 TAB 0 Refills Prov:[facility] 04/18/25 Pantoprazole Sodium Sesquihydr (Pantoprazole Sodium) 40 Mg Tab, 40 MG PO DAILY for 30 Days, #30 TAB 0 Refills Prov:[facility] 04/18/25 Mupirocin (Pseudomonas Fluores (Mupirocin) 2 % Oin, 2 % EX BID for 30 Days, #1 OIN Prov:JOSÉ LUIS VAUGHAN MD 03/21/25 Blood Glucose Monitoring Suppl (BitGoUCH VERIO REFLECT w/Device) 1 Kit Kit, KIT XX TIDWM PRN, #1 Prov:JOSÉ LUIS VAUGHAN MD 03/21/25 Amlodipine Besylate (NORVASC TABLET) 5 Mg Tb, 5 MG PO DAILY for 30 Days, #30 TAB 5 Refills Prov:LORRAINE ACEVEDO MD 01/23/25 Sucralfate (CARAFATE SUSP) 1 Gm/10 Ml Ss, 1 GM PO BID@0600,2200 for 14 Days, #10 ML 5 Refills Prov:LORRAINE ACEVEDO MD 01/23/25 Insulin Glargine (Lantus) 100 Unit/Ml Inj, 80 UNIT SC HS for 96 Days, #10 ML 5 Refills Prov:LORRAINE ACEVEDO MD 01/23/25 Alum & Mag Hydrox-Simethicone (Gi Cocktail) 55 Ml Ss, 55 ML PO TID for 30 Days, #1 ML Prov:COREEN BULLARD RESIDENT 01/03/25 Alum & Mag Hydrox-Simethicone (Gi Cocktail) 55 Ml Ss, 55 ML PO BID for 10 Days, #1 ML Prov:COREEN BULLARD 01/02/25 Ergocalciferol (VITAMIN D 56662 UNIT) 50,000 [place], [address] UNIT PO QWEEKLY for 30 Days, #4 CAP Prov:COREEN BULLARD 11/28/24 Acetaminophen (Acetaminophen) 325 Mg Tab, 650 MG PO Q6HP PRN for 30 Days, #240 TAB Prov:COREEN BULLARD 11/28/24 Reported Medications Pramipexole Dihydrochloride (MIRAPEX ER) 3.75 Mg Tab, 3.75 MG PO, TAB 04/12/25 Review of systems Review of Systems: Deferred Examination Vital signs Vital Signs Date Time Temp Pulse Resp B/P (MAP) Pulse Ox O2 Delivery O2 Flow Rate FiO2 08/11/25 12:39 62 18 126/77 08/11/25 07:30 96 Room Air* 0 21 08/11/25 05:00 98.3 98.3 Medications Current Medications Medications (Trade) Dose Ordered Sig/Adina Route PRN Reason Start Time Stop Time Status Last Admin Enoxaparin Sodium (Lovenox) 40 mg DAILY SC 08/11/25 10:00 Metronidazole 100 ml @ 100 mls/hr Q8HR IV 08/10/25 22:00 08/11/25 13:05 Ceftriaxone Sodium 50 ml @ 100 mls/hr DAILY@09 IV 08/11/25 09:00 08/11/25 08:38 Diagnostic Test (Pha) (Accu-Chek Comfort Curve T) 1 strip ACHS 08/10/25 17:00 08/11/25 11:38 Insulin Human Regular (InsuLIN R) ACHS SC 08/10/25 17:00 08/11/25 01:29 DC Dextrose/Sodium Chloride 1,000 ml @ 75 mls/hr [id number] IV 08/11/25 01:30 08/11/25 15:26 Acetaminophen/ Hydrocodone Bitart ([place] 10/325MG Tab) 1 tab Q6HP PRN PO MODERATE PAIN (4-6 PAIN SCALE) 08/11/25 13:30 08/11/25 15:20 Laboratory Labs Test 08/11/25 08:52 08/11/25 06:46 08/11/25 02:48 08/10/25 17:30 Range/Units Ammonia 15 11-32 umol/L White Blood Count 8.2 # 4.4-10.8 10^3/uL Red Blood Count 4.40 L 4.5-5.90 10^6/uL Hemoglobin 12.9 #L 13.5-17.5 g/dL Hematocrit 38.1 #L 41.0-53.0 % Mean Corpuscular Volume 86.7 80.0-100.0 fL Mean Corpuscular Hemoglobin 29.3 28.0-32.0 pg Mean Corpuscular Hemoglobin Concent 33.8 32.0-36.0 g/dL Red Cell Distribution Width 14.6 H 11.8-14.3 % Platelet Count 309 140-450 10^3/uL Mean Platelet Volume 6.9 6.9-10.8 fL Neutrophils (%) (Auto) 68.6 37.0-80.0 % Lymphocytes (%) (Auto) 21.5 10.0-50.0 % Monocytes (%) (Auto) 9.3 0.0-12.0 % Eosinophils (%) (Auto) 0.3 0.0-7.0 % Basophils (%) (Auto) 0.3 0.0-2.0 % Neutrophils # (Auto) 5.6 1.6-8.6 10 ^3/uL Lymphocytes # (Auto) 1.8 0.4-5.4 10 ^3/uL Monocytes # (Auto) 0.8 0-1.3 10 ^3/uL Eosinophils # (Auto) 0 0-0.8 10 ^3/uL Basophils # (Auto) 0 0-0.2 10 ^3/uL Nucleated Red Blood Cells 0.1 % Prothrombin Time 10.6 9.3-11.8 sec Prothrombin Time INR 1.00 0.9-1.15 Activated Partial Thromboplast Time 26.7 24.5-34.5 SEC Sodium Level 138 # 136-145 mmol/L Potassium Level 4.2 3.5-5.1 mmol/L Chloride Level 100 98-107 mmol/L Carbon Dioxide Level 30 20-31 mmol/L Anion Gap 8 5-15 Blood Urea Nitrogen 21 # 9-23 mg/dL Creatinine 1.07 # 0.700-1.30 mg/dL Glomerular Filtration Rate Calc 86 >90 mL/min BUN/Creatinine Ratio 19.6 10.0-20.0 Serum Glucose 91 74-106 mg/dL Hemoglobin A1c 10.2 H <5.7 % A1C Lactic Acid Level 1.2 0.4-2.0 mmol/L Calcium Level 8.8 8.7-10.4 mg/dL Phosphorus Level 2.5 2.4-5.1 mg/dL Magnesium Level 2.2 1.6-2.6 mg/dL Total Bilirubin 1.1 H 0.2-1.0 mg/dL Aspartate Amino Transferase (AST) 86 H 13-40 U/L Alanine Aminotransferase (ALT) 37 7-40 U/L Alkaline Phosphatase 72 46-116 U/L Total Protein 6.7 5.7-8.2 g/dL Albumin 3.9 3.2-4.8 g/dL Triglycerides Level 179 H < 150 mg/dL Cholesterol Level 259 H < 200 mg/dL LDL Cholesterol 195 H < 100 mg/dL HDL Cholesterol 47 40-59 mg/dL Vitamin D 25-Hydroxy 32.9 30.0-100 ng/mL POC Glucose 156 H 70-106 mg/dl Urine Creatinine 103.70 30.0-125.0 mg/dL Urine Sodium 31 L 40-220 mmol/L Urine Total Protein 41.5 H 1-14 mg/dL Test 08/10/25 13:01 08/10/25 08:15 08/10/25 07:30 Range/Units Serum Osmolality 291 278-298 mOsm/kg Lipase 23 12-53 U/L Urine Color Light-yellow Yellow Urine Clarity Clear Clear Urine pH 5.5 5.0-9.0 Urine Specific [place] 1.021 1.001-1.035 Urine Protein Trace H Negative Urine Ketones Negative Negative Urine Blood 2+ H Negative /uL Urine Nitrite Negative Negative Urine Bilirubin Negative Negative Urine Urobilinogen Normal Negative mg/dL Urine Leukocyte Esterase Negative Negative /uL Urine RBC 1 0 - 3 /hpf Urine Microscopic WBC 5 H 0-3 /HPF Urine Squamous Epithelial Cells None seen <5 /hpf Urine Bacteria None seen None Seen /hpf Urine Osmolality 373 mOsm/kg Urine Protein/Creatinine Ratio 0.41 Urine Glucose Normal Normal mg/dL Microbiology Date/Time Source Procedure Growth Status 08/11/25 05:08 Nose MRSA Screen - Final Complete 08/10/25 13:10 Blood Blood Culture - Preliminary NO GROWTH AFTER 24 HOURS OF INCUBATION. Resulted 08/10/25 07:30 Voided Urine Urine Culture - Preliminary No growth Resulted Examination: GENERAL:Normal (A&O x3), HEENT:Normal (No icterus, neck supple), LUNGS:Normal (Nonlabored breathing with symmetric expansion), ABDOMEN:Normal (Nondistended, soft, depressible, no scars, no hernias, no masses, mild epigastric tenderness, no rebound, no guarding) Problem List/Assessment/Plan Problems: (1) Abdominal pain Assessment and Plan Mr. Palmer is a 45-year-old male who presented with a epigastric abdominal pain for the last 2 years. I was consulted for the possibility of cholecystitis. I reviewed the patient's ultrasound, there are no stones in the gallbladder, no pericholecystic fluid, no gallbladder wall thickening. I reviewed the CT scan of the abdomen and pelvis, no stones seen in the gallbladder either, no pericholecystic fluid. Patient had an MRCP due to probable CBD dilation on ultrasound, CBD is normal on MRCP, no gallbladder pathology noted or biliary tree pathology noted. Pancreas also appears normal in the MRCP. Patient's pain is not gallbladder in nature. Patient will probably benefit from upper and lower endoscopy. His last endoscopy was on March of 2025 and showed mild gastritis. I will sign off, please call for any questions or concerns. Plan discussed with Plan discussed with: Patient Visit Coding Surgery Date of Service if different f: Aug 11, 2025 Billing Provider: DOTTY BAL MD Surgery Visit Codes: [id number] - INP CONSULT <110 MIN DOTTY BAL MD Aug 11, 2025 16:50
[2025-08-11 17:00] VITALS: BP 139/93; PULSE 77; RESP 16; TEMP 98; O2SAT 97
[2025-08-11 20:00] VITALS: PULSE 78; PULSE 79; RESP 18; O2SAT 96
[2025-08-11 21:00] VITALS: BP 124/69; PULSE 77; RESP 18; TEMP 98; O2SAT 97
[2025-08-12] VITALS (8 sets, daily range): BP systolic 120–159; BP diastolic 71–99; PULSE 64–90; RESP 16–20; TEMP 94.5–98.8; O2SAT 95–99
[2025-08-12 06:02] LABS: Hematocrit 36.6 % (41.0-53.0); Hemoglobin 12.3 g/dL (13.5-17.5); Mean Corpuscular Hemoglobin 29.3 pg (28.0-32.0); Mean Corpuscular Volume 87.7 fL (80.0-100.0); Nucleated Red Blood Cells % 0.1 %
[2025-08-12 06:18] LABS: Alanine Aminotransferase 28 U/L (7-40); Albumin 3.5 g/dL (3.2-4.8); Alkaline Phosphatase 67 U/L (46-116); Anion Gap 8 (5-15); BUN/Creatinine Ratio 11.0 (10.0-20.0); Carbon Dioxide 25 mmol/L (20-31); Chloride 102 mmol/L (98-107); Potassium 4.3 mmol/L (3.5-5.1); Total Protein 6.0 g/dL (5.7-8.2)
[2025-08-12 06:19] LABS: Bilirubin, Total 0.9 mg/dL (0.2-1.0)
[2025-08-12 06:34] LABS: Blood Urea Nitrogen 8 mg/dL (9-23); Glucose 119 mg/dL (74-106); Sodium 135 mmol/L (136-145)
[2025-08-12 06:35] LABS: Calcium 8.3 mg/dL (8.7-10.4)
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
[2025-08-12] MEDS: ACCU-CHEK COMFORT CURVE STRIP VI SCH (14:00)
--- NOTE | 2025-08-12 14:18 | DVHPN2 ---
Progress Note Date Seen: Aug 12, 2025 Medical Necessity Reason Pt with a Central, PICC or Fol: No Subjective Patient reports: No new complaints, Feels better Objective vital signs Vital Sign Date Time Temp Pulse Resp B/P (MAP) Pulse Ox O2 Delivery O2 Flow Rate FiO2 08/12/25 13:00 98.1 73 20 146/95 (112) 99 98.1 08/12/25 08:02 Room Air* 0 21 Total Intake and Output 08/11/25 08/11/25 08/12/25 15:00 23:00 07:00 Intake Total 950 ml 795 ml Balance 950 ml 795 ml medications Current Medications Medications Dose Ordered Sig/Adina Route Start Time Stop Time Status Last Admin Dose Admin Acetaminophen 325 mg Q4HP PRN PO 08/10/25 11:45 Ondansetron HCl 4 mg Q4HP PRN IV 08/10/25 11:45 08/12/25 11:47 4 MG Morphine Sulfate 2 mg Q4HPRN PRN IV 08/10/25 11:45 08/12/25 11:48 2 MG Enoxaparin Sodium 40 mg DAILY SC 08/11/25 10:00 08/12/25 09:19 40 MG Metronidazole 100 ml @ 100 mls/hr Q8HR IV 08/10/25 22:00 08/12/25 06:46 100 MLS/HR Ceftriaxone Sodium 50 ml @ 100 mls/hr DAILY@09 IV 08/11/25 09:00 08/12/25 09:19 100 MLS/HR Dextrose 50 ml UD PRN IV 08/10/25 11:45 08/11/25 01:28 50 ML Dextrose/Sodium Chloride 1,000 ml @ 75 mls/hr [id number] IV 08/11/25 01:30 08/11/25 15:26 75 MLS/HR Acetaminophen/ Hydrocodone Bitart 1 tab Q6HP PRN PO 08/11/25 13:30 08/12/25 09:32 1 TAB Diagnostic Test (Pha) 1 strip Q4HR 08/12/25 14:00 Trazodone HCl 50 mg HS PRN PO 08/12/25 13:00 Pantoprazole Sodium 40 mg DAILY@0600 PO 08/13/25 06:00 Metoclopramide HCl 10 mg BID IV 08/12/25 22:00 Examination Gen: Appears stated age. NAD Heart: RRR, normal S1 and S2 Lungs: Bilateral air entry, no rales Ext: No edema Neuro: Alert and oriented x 4 laboratory and microbiology Laboratory Tests 08/12/25 05:34 Test 08/12/25 05:34 Range/Units Serum Glucose 119 H 74-106 mg/dL Microbiology Date/Time Source Procedure Growth Status 08/11/25 05:08 Nose MRSA Screen - Final Complete 08/10/25 13:10 Blood Blood Culture - Preliminary NO GROWTH AFTER 48 HOURS OF INCUBATION. Resulted 08/10/25 07:30 Voided Urine Urine Culture - Preliminary No growth Resulted Labs and/or images reviewed: Labs reviewed by ri Problem List/Assessment/Plan Problem List/Assessment/Plan IMP: 1) Hemodynamically mediated RYNE/VMN, possible prerenal etiology 2) sepsis possibly secondary to cholecystitis 3) volume deplete state 4) history of diabetes 5) history of hypertension REC: - Improved kidney function eGFR 118, serum creat 0.73 - Improve glycemic control, and blood pressure control - Avoidance of IV contrast studies if able - Avoidance NSAIDs - No further renal rec. Will sign off on case. Plan discussed with: Patient JULIO LI VALERIA Aug 12, 2025 14:18
[2025-08-12] MEDS: HYDROcodone-ACET 10/325MG TAB ONE ×3 (17:53→17:54)
[2025-08-12] MEDS: DEXTROSE 50% SYRINGE 50 ML IV ONE ×2 (17:54→17:55)
[2025-08-12] MEDS: MORPHINE SULFATE INJ 2 MG/ml SYRG ONE ×2 (17:55→17:56)
[2025-08-12] MEDS: ONDANSETRON HCL 4 MG/2 ML VIAL ONE (17:55)
[2025-08-12] MEDS: MORPHINE SULFATE 4 MG/ML SYR/VIAL ONE (17:56)
[2025-08-12] MEDS: METOCLOPRAMIDE HCL 5MG/ml INJ 2ml VIAL IV SCH (21:42)
[2025-08-13 01:00] VITALS: BP 128/80; PULSE 71; RESP 18; TEMP 97.3; O2SAT 97
[2025-08-13 05:00] VITALS: BP 127/88; PULSE 78; RESP 18; TEMP 97.1; O2SAT 98
[2025-08-13] MEDS: PANTOPRAZOLE 40 MG TAB PO SCH (06:24)
[2025-08-13 07:20] LABS: Hematocrit 41.2 % (41.0-53.0); Hemoglobin 13.7 g/dL (13.5-17.5); Mean Corpuscular Hemoglobin 28.8 pg (28.0-32.0); Mean Corpuscular Volume 86.8 fL (80.0-100.0); Nucleated Red Blood Cells % 0.0 %
[2025-08-13 07:48] LABS: Alanine Aminotransferase 31 U/L (7-40); Alkaline Phosphatase 81 U/L (46-116); Anion Gap 8 (5-15); BUN/Creatinine Ratio 8.8 (10.0-20.0); Calcium 9.1 mg/dL (8.7-10.4); Carbon Dioxide 29 mmol/L (20-31); Chloride 98 mmol/L (98-107); Potassium 4.1 mmol/L (3.5-5.1); Total Protein 7.1 g/dL (5.7-8.2)
[2025-08-13 07:49] LABS: Albumin 4.2 g/dL (3.2-4.8); Bilirubin, Total 1.0 mg/dL (0.2-1.0); Blood Urea Nitrogen 8 mg/dL (9-23); Glucose 190 mg/dL (74-106); Sodium 135 mmol/L (136-145)
[2025-08-13 08:00] VITALS: PULSE 77
[2025-08-13 08:16] VITALS: O2SAT 96
[2025-08-13 09:00] VITALS: BP 155/85; PULSE 73; RESP 18; TEMP 98.7; O2SAT 98
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
[2025-08-13] MEDS ORDERED: METO10TA3 PO (10:11)
[2025-08-13] MEDS ORDERED: AUG875T PO (10:11)
[2025-08-13 11:46] VITALS: TEMP 37.1
--- NOTE | 2025-08-13 11:59 | DVHPN2 ---
Progress Note Date Seen: Aug 13, 2025 Medical Necessity Reason Pt with a Central, PICC or Fol: No Subjective Patient reports: No new complaints Other Systems: Patient seen and examined by myself today in follow-up Objective vital signs Vital Sign Date Time Temp Pulse Resp B/P (MAP) Pulse Ox O2 Delivery O2 Flow Rate FiO2 08/13/25 11:46 37.1 08/13/25 09:00 73 18 155/85 (108) 98 08/13/25 08:16 Room Air* 0 21 Total Intake and Output 08/12/25 08/12/25 08/13/25 15:00 23:00 07:00 Intake Total 1600 ml 940 ml Balance 1600 ml 940 ml medications Current Medications Medications Dose Ordered Sig/Adina Route Start Time Stop Time Status Last Admin Dose Admin Acetaminophen 325 mg Q4HP PRN PO 08/10/25 11:45 Ondansetron HCl 4 mg Q4HP PRN IV 08/10/25 11:45 08/12/25 11:47 4 MG Morphine Sulfate 2 mg Q4HPRN PRN IV 08/10/25 11:45 08/12/25 21:46 2 MG Enoxaparin Sodium 40 mg DAILY SC 08/11/25 10:00 08/13/25 09:34 40 MG Metronidazole 100 ml @ 100 mls/hr Q8HR IV 08/10/25 22:00 08/13/25 06:24 100 MLS/HR Ceftriaxone Sodium 50 ml @ 100 mls/hr DAILY@09 IV 08/11/25 09:00 08/13/25 09:34 100 MLS/HR Dextrose 50 ml UD PRN IV 08/10/25 11:45 08/11/25 01:28 50 ML Dextrose/Sodium Chloride 1,000 ml @ 75 mls/hr [id number] IV 08/11/25 01:30 08/13/25 06:23 75 MLS/HR Acetaminophen/ Hydrocodone Bitart 1 tab Q6HP PRN PO 08/11/25 13:30 08/13/25 10:02 1 TAB Diagnostic Test (Pha) 1 strip Q4HR 08/12/25 14:00 08/13/25 10:06 1 STRIP Trazodone HCl 50 mg HS PRN PO 08/12/25 13:00 Pantoprazole Sodium 40 mg DAILY@0600 PO 08/13/25 06:00 08/13/25 06:24 40 MG Metoclopramide HCl 10 mg BID IV 08/12/25 22:00 08/13/25 09:34 10 MG Examination: LUNGS:Normal, CVS:Normal, MSK:Normal laboratory and microbiology Laboratory Tests 08/13/25 07:00 Test 08/13/25 07:00 Range/Units Serum Glucose 190 H 74-106 mg/dL Microbiology Date/Time Source Procedure Growth Status 08/11/25 05:08 Nose MRSA Screen - Final Complete 08/10/25 13:10 Blood Blood Culture - Preliminary NO GROWTH AFTER 48 HOURS OF INCUBATION. Resulted 08/10/25 07:30 Voided Urine Urine Culture - Final Complete Problem List/Assessment/Plan Problem List/Assessment/Plan Acute kidney injury secondary to hemodynamic mediated Sepsis Acute Cholecystitis Dehydration Diabetes mellitus type 2 Recommendations Kidney function is improving No urine output charted Strict I&Os I agree with IV fluid hydration IV antibiotic Surgery consult We will continue to follow Plan discussed with: Patient YURIY RAMON MD Aug 13, 2025 11:59
== END 2025-08-13 13:10 | disposition home or self-care (01) | DRG 720 ==
LOC: EDBD 07:15 → ER 07:15 → OVERFLOW 11:33 → TELE-WESTW 17:44
PROVIDERS: ADMIT Student in an Organized Health Care Education/Training Program; ATTEND Student in an Organized Health Care Education/Training Program
DX: A41.9 Sepsis, unspecified organism (principal); N17.0 Acute kidney failure with tubular necrosis; I10 Essential (primary) hypertension; F12.10 Cannabis abuse, uncomplicated; E11.43 Type 2 diabetes mellitus with diabetic autonomic (poly)neuropathy; E86.1 Hypovolemia; E87.1 Hypo-osmolality and hyponatremia; K31.84 Gastroparesis; E86.9 Volume depletion, unspecified; E86.0 Dehydration; A09 Infectious gastroenteritis and colitis, unspecified; E11.649 Type 2 diabetes mellitus with hypoglycemia without coma; Z80.1 Family history of malignant neoplasm of trachea, bronchus and lung; Z83.3 Family history of diabetes mellitus; Z82.0 Family history of epilepsy and other diseases of the nervous system; Z87.11 Personal history of peptic ulcer disease; Z98.1 Arthrodesis status; Z79.4 Long term (current) use of insulin
CPT/HCPCS: 36415; 71045; 74176; 74181; 76700; 80053; 80061; 81001; 82043; 82140; 82306; 82570; 82607; 82962; 83036; 83605; 83690; 83735; 83930; 83935; 84100; 84156; 84300; 85025; 85610; 85730; 87040; 87081; 87086; 99291; G0378; J2405; J3490

== ENCOUNTER 2025-09-10 02:09 | Inpatient (IN) | payer MEDICAID ==
[~2025-09-10] VITALS: Ht 170.2 cm; Wt 70.5 kg
[~2025-09-10 02:09] MED LIST changes: -ACET500T58 PO; +AUG875T PO; -METO10TA4 PO; -PANT40T PO
--- NOTE | 2025-09-10 02:29 | ED.PDOC ---
GI ASSESSMENT HPI Comments 45 year-old male presents to the ED via EMS with a chief complaint of epigastric abdominal pain as of X3 days ago after eating pizza. Patient has a PMHx of gastrointestinal related issues, chronic gastritis and cholecystitis. Patient was seen in the ED on 08/13/25 for abdominal pain and was diagnosed with acute cholecystitis, N/V, and intractable abdominal pain. Patient reports following up with Stack Clerk last week, with his next appt set to be a colonoscopy. Patient denies smoking MJ, and further denies any recent ingestion of drugs or ETOH. Patient has no further complaints at this time and otherwise denies symptoms of N/V, chest pain, cough, constipation, or hematuria. Chief Complaint: Abdominal Pain Time Seen by MD: 02:16 Primary Care Provider: UNKNOWN Reviewed Notes: Medications, Allergies Allergies: Coded Allergies: NO KNOWN ALLERGIES (Unverified , 09/21/20) Home Meds Active Scripts Amoxicillin & Pot Clavulanate (AUGMENTIN TABLET) 875 Mg Tb, 875 MG PO BID for 5 Days, #10 TAB 0 Refills Prov:RAFAEL VARGHESE MD 08/13/25 Metoclopramide Hcl (Metoclopramide Hcl) 10 Mg Tab, 10 MG PO DAILY, #30 TAB 0 Refills Prov:RAFAEL VARGHESE MD 08/13/25 Insulin Aspart (Novolog Flexpen Relion) 100 Unit/Ml Inj, 1-10 UNIT SC TIDWM PRN for 30 Days, #1 INJ 1 Refill [id number]; 180=4u; 240=6u; 300=8u; 350=10u; >400-12u+ED Prov:RAFAEL VARGHESE MD 07/13/25 Insulin Glargine (Lantus Solostar) 100 Unit/Ml Inj, 10 UNIT SC HS for 30 Days, #1 INJ 1 Refill Prov:RAFAEL VARGHESE MD 07/13/25 Pantoprazole Sodium Sesquihydr (Protonix) 40 Mg Tab, 40 MG PO DAILY for 30 Days, #30 TAB 0 Refills Prov:RAFAEL VARGHESE MD 07/13/25 Hydrocodone-Acetaminophen (Hydrocodone Bitartrate/AC 5-325 mg) 1 Tab Tab, 1 TAB PO TIDP PRN for 7 Days, #21 TAB Prov:RAFAEL VARGHESE MD 07/13/25 Metoclopramide Hcl (Metoclopramide Hcl) 10 Mg Tab, 10 MG PO BID for 30 Days, #60 TAB 0 Refills Prov:RAFAEL VARGHESE MD 07/13/25 Dicyclomine Hcl (BENTYL CAPSULE) 10 Mg Cp, 1 CAP PO TID for 14 Days, #42 CAP 11 Refills Prov:LAKEISHA BISWAS NP 06/11/25 Mupirocin (Pseudomonas Fluores (Mupirocin) 2 % Oin, 2 % EX BID for 30 Days, #1 OIN Prov:JOSÉ LUIS VAUGHAN MD 03/21/25 Blood Glucose Monitoring Suppl (XiaohongshuUCH VERIO REFLECT w/Device) 1 Kit Kit, KIT XX TIDWM PRN, #1 Prov:JOSÉ LUIS VAUGHAN MD 03/21/25 Amlodipine Besylate (NORVASC TABLET) 5 Mg Tb, 5 MG PO DAILY for 30 Days, #30 TAB 5 Refills Prov:LORRAINE ACEVEDO MD 01/23/25 Sucralfate (CARAFATE SUSP) 1 Gm/10 Ml Ss, 1 GM PO BID@0600,2200 for 14 Days, #10 ML 5 Refills Prov:LORRAINE ACEVEDO MD 01/23/25 Insulin Glargine (Lantus) 100 Unit/Ml Inj, 80 UNIT SC HS for 96 Days, #10 ML 5 Refills Prov:LORRAINE ACEVEDO MD 01/23/25 Alum & Mag Hydrox-Simethicone (Gi Cocktail) 55 Ml Ss, 55 ML PO TID for 30 Days, #1 ML Prov:COREEN BULLARD 01/03/25 Ergocalciferol (VITAMIN D 15645 UNIT) 50,000 Unit Cp, 11631 UNIT PO QWEEKLY for 30 Days, #4 CAP Prov:COREEN BULLARD 11/28/24 Acetaminophen (Acetaminophen) 325 Mg Tab, 650 MG PO Q6HP PRN for 30 Days, #240 TAB Prov:COREEN BULLARD 11/28/24 Reported Medications Pramipexole Dihydrochloride (MIRAPEX ER) 3.75 Mg Tab, 3.75 MG PO, TAB 04/12/25 Information Source: Patient, Emergency Med Personnel Mode of Arrival: EMS Timing: Days Duration: Since onset Severity: Moderate Pain Location: Epigastric Associated sign and symptoms: Abdominal Pain Past Medical History PAST MEDICAL HISTORY: DM, HTN Past Medical History (Other): Gastritis Surgical History: Denies all surgeries Family History Family History: Reviewed,noncontributory to illness Social History Smoker: Non-Smoker Alcohol: Denies ETOH Use Drugs: Marijuana Lives In: Home Constitutional: denies: chills, diaphoresis, fatigue, fever, malaise, sweats, weakness, others EENTM: denies: blurred vision, double vision, ear bleeding, ear discharge, ear drainage, ear pain, ear ringing, eye pain, eye redness, hearing loss, mouth pain, mouth swelling, nasal discharge, nose bleeding, nose congestion, nose pain, photophobia, tearing, throat pain, throat swelling, voice changes, others Respiratory: denies: cough, hemoptysis, orthopnea, SOB at rest, shortness of breath, SOB with excertion, stridor, wheezing, others Cardiovascular: denies: chest pain, dizzy spells, diaphoresis, Dyspnea on exertion, edema, irregular heart beat, left arm pain, lightheadedness, palpitations, PND, syncope, others Gastrointestinal: reports: abdominal pain; denies: abdomen distended, blood streaked bowels, constipated, diarrhea, dysphagia, difficulty swallowing, hematemesis, melena, nausea, poor appetite, poor fluid intake, rectal bleeding, rectal pain, vomiting, others Genitourinary: denies: burning, dysuria, flank pain, frequency, hematuria, incontinence, penile discharge, penile sore, pain, testicle pain, testicle swelling, urgency, others Neurological: denies: dizziness, fainting, headache, left sided numbness, left sided weakness, numbness, paresthesia, pre-existing deficit, right sided numbness, right sided weakness, seizure, speech problems, tingling, tremors, weakness, others Musculoskeletal: denies: back pain, gout, joint pain, joint swelling, muscle pain, muscle stiffness, neck pain, others Integumetry: denies: bruises, change in color, change in hair/nails, dryness, laceration, lesions, lumps, rash, wounds, others Allergic/Immunocompromised: denies: Difficulty Healing, Frequent Infections, Hives, Itching, others Hematologic/Lymphatic: denies: anemia, blood clots, easy bleeding, easy bruising, swollen glands, others Endocrine: denies: excessive hunger, excessive sweating, excessive thirst, excessive urination, flushing, intolerance to cold, intolerance to heat, unexplained weight gain, unexplained weight loss, others Psychiatric: denies: anxiety, bipolar disorder, depression, hopeless, panic disorder, schizophrenia, sleepless, suicidal, others All Other Systems: Reviewed and Negative Physical Exam General Appearance: No Apparent Distress, Normal HEENT: Normal ENT Inspection, Pharynx Normal, TMs Normal Neck: Full Range of Motion, Non-Tender, Normal, Normal Inspection Respiratory: Chest Non-Tender, Lungs Clear, No Accessory Muscle Use, No Respiratory Distress, Normal Breath Sounds Cardiovascular: No Edema, No JVD, No Murmur, No Gallop, Normal Peripheral Pulses, Regular Rate/Rhythm Breast Exam: Deferred Gastrointestinal: No Organomegaly, No Pulsatile Mass, Normal Bowel Sounds, Tenderness (Epigastric Abdominal Tenderness) Genitalia: Deferred Pelvic: Deferred Rectal: Deferred Extremities: No calf tenderness, Normal capillary refill, Normal inspection, Normal range of motion, Non-tender, No pedal edema Musculoskeletal : Apperance: Normal Neurologic: Alert, food service substitute II-XII nml as Tested, No Motor Deficits, Normal Affect, Normal Mood, No Sensory Deficits Cerebellar Function: Normal Reflexes: Normal Skin: Dry, Normal Color, Warm Lymphatic: No Adenopathy Was a procedure done? Was a procedure done?: No GI differential Dx Differential Diagnosis: Appendicitis, Cholecystitis, Constipation, Gastritis/PUD, Gastroenteritis, Inflammatory BD, UTI, Urolithiasis, Dehydration, Food Poisoning, Bacterial, Parasitic, Viral X-Ray, Labs, Meds, VS Vital Signs Date Time Temp Pulse Resp B/P (MAP) Pulse Ox O2 Delivery O2 Flow Rate FiO2 09/10/25 02:52 Room Air* 0 21 09/10/25 02:51 88 16 154/106 (122) 97 09/10/25 02:46 98.6 98 20 160/92 (114) 99 98.6 09/10/25 02:20 98.6 99 20 163/95 99 98.6 Lab Test 09/10/25 02:30 Range/Units White Blood Count 10.1 4.4-10.8 10^3/uL Red Blood Count 4.98 4.5-5.90 10^6/uL Hemoglobin 14.2 13.5-17.5 g/dL Hematocrit 42.2 41.0-53.0 % Mean Corpuscular Volume 84.8 80.0-100.0 fL Mean Corpuscular Hemoglobin 28.5 28.0-32.0 pg Mean Corpuscular Hemoglobin Concent 33.6 32.0-36.0 g/dL Red Cell Distribution Width 14.3 11.8-14.3 % Platelet Count 440 140-450 10^3/uL Mean Platelet Volume 7.4 6.9-10.8 fL Neutrophils (%) (Auto) 80.3 H 37.0-80.0 % Lymphocytes (%) (Auto) 12.6 10.0-50.0 % Monocytes (%) (Auto) 6.4 0.0-12.0 % Eosinophils (%) (Auto) 0.1 0.0-7.0 % Basophils (%) (Auto) 0.6 0.0-2.0 % Neutrophils # (Auto) 8.1 1.6-8.6 10 ^3/uL Lymphocytes # (Auto) 1.3 0.4-5.4 10 ^3/uL Monocytes # (Auto) 0.6 0-1.3 10 ^3/uL Eosinophils # (Auto) 0 0-0.8 10 ^3/uL Basophils # (Auto) 0.1 0-0.2 10 ^3/uL Nucleated Red Blood Cells 0.1 % Sodium Level 131 L 136-145 mmol/L Potassium Level 4.3 3.5-5.1 mmol/L Chloride Level 94 L 98-107 mmol/L Carbon Dioxide Level 24 20-31 mmol/L Anion Gap 13 5-15 Blood Urea Nitrogen 25 H 9-23 mg/dL Creatinine 1.12 0.700-1.30 mg/dL Glomerular Filtration Rate Calc 82 >90 mL/min BUN/Creatinine Ratio 22.3 H 10.0-20.0 Serum Glucose 310 H 74-106 mg/dL Calcium Level 9.7 8.7-10.4 mg/dL Lipase 26 12-53 U/L Current Medications Medications (Trade) Dose Ordered Sig/Adina Route Start Time Stop Time Status Last Admin Haloperidol Lactate (Haldol) 5 mg ONCE ONCE IM 09/10/25 02:30 09/10/25 02:31 DC 09/10/25 03:03 Diphenhydramine HCl (Benadryl Injection) 50 mg ONCE ONCE IM 09/10/25 02:30 09/10/25 02:31 DC 09/10/25 03:03 X-Ray, Labs, Meds, VS Comment Previous history reviewed: HTN, DM, Chronic Gastritis The following tests were ordered, and results were reviewed by me: CBC, BMP, LIPASE, KUB ABDOMEN XRAY Additional Information was gathered from interviewing the following independent historians: MRCP done 08/11 shows no stones, US done 08/10 shows distended bladder, fatty liver, no stones I reviewed and agreed with the following test results read by other providers: KUB ABDOMEN XRAY I discussed treatment and results with medical personnel and: Patient Comprehensive systems review obtained and negative except for what is stated in the HPI. Time of 1ST Reevaluation: 03:10 Reevaluation 1ST: Unchanged Patient Education/Counseling: Diagnosis, Treatment, Prognosis, Need For Follow Up Family Education/Counseling: No Family Present Comments This is a patient who has chronic abdominal pain and chronic nausea or vomiting. He was just admitted about a month ago for the same thing. He had an MRCP, gallbladder ultrasound, abdominal CAT scan. Everything came back unremarkable. Patient has a follow up appointment with Dr. Dasilva GI specialist who do a colonoscopy. However he returns with the same symptoms. Patient reports that he had quit marijuana use. However his symptoms remain the same. I suspect patient may have cyclic vomiting syndrome or cannabinoid hyperemesis syndrome. Due to his intractable symptoms, patient will be admitted for further s ymptomatic treatments and proceed Dr. Dasilva while he is here. A drug-seeking elements can not be completely ruled out at this time SEPSIS Sepsis Screen Physician Orders Kub Abdomen Single View (09/10/25 02:21) Vital Signs Date Time Temp Pulse Resp B/P (MAP) Pulse Ox O2 Delivery O2 Flow Rate FiO2 09/10/25 02:52 Room Air* 0 21 09/10/25 02:51 88 16 154/106 (122) 97 09/10/25 02:46 98.6 98 20 160/92 (114) 99 98.6 09/10/25 02:20 98.6 99 20 163/95 99 98.6 Laboratory Tests Test 09/10/25 02:30 White Blood Count 10.1 10^3/uL (4.4-10.8) Medications Medications Dose Ordered Sig/Adina Route Start Time Stop Time Status Last Admin Dose Admin Diphenhydramine HCl 50 mg ONCE ONCE IM 09/10/25 02:30 09/10/25 02:31 DC 09/10/25 03:03 Haloperidol Lactate 5 mg ONCE ONCE IM 09/10/25 02:30 09/10/25 02:31 DC 09/10/25 03:03 Departure 1 Departure Time of Disposition: 03:41 Impression: Primary Impression: Chronic abdominal pain Additional Impression: Cyclical vomiting Disposition: ADMITTED INPATIENT Admit to: Med Surg Condition: Stable Discharged With: Self Critical Care Note Critical Care Time?: No Stability Stability form required: No Heart Score Heart Score: Heart Score Response (Comments) Value History N/A 0 EKG N/A 0 Age N/A 0 Risk Factors N/A 0 Troponin N/A 0 Total 0 I personally scribed for MARTIN KOENIG MD ([email or web address]) on 09/10/25 at 02:29. Electronically submitted by Kathleen Moscoso ([facility]). I personally scribed for MARTIN KOENIG MD ([email or web address]) on 09/10/25 at 02:32. Electronically submitted by Kathleen Moscoso ([facility]). MARTIN KOENIG MD Sep 10, 2025 02:29
[2025-09-10] MEDS: diphenhydrAMINE HCL 50 MG/1 ML VL IM ONE (03:03)
[2025-09-10] MEDS: HALOPERIDOL LACTATE 5 MG/ML INJ VIAL IM ONE (03:03)
[2025-09-10 03:08] LABS: Potassium 4.3 mmol/L (3.5-5.1)
[2025-09-10 03:09] LABS: Anion Gap 13 (5-15); Calcium 9.7 mg/dL (8.7-10.4); Carbon Dioxide 24 mmol/L (20-31)
[2025-09-10 03:13] LABS: Chloride 94 mmol/L (98-107); Sodium 131 mmol/L (136-145)
[2025-09-10 03:14] LABS: BUN/Creatinine Ratio 22.3 (10.0-20.0); Lipase 26 U/L (12-53)
[2025-09-10 03:16] LABS: Blood Urea Nitrogen 25 mg/dL (9-23); Glucose 310 mg/dL (74-106)
[2025-09-10 03:17] LABS: Hematocrit 42.2 % (41.0-53.0); Hemoglobin 14.2 g/dL (13.5-17.5); Mean Corpuscular Hemoglobin 28.5 pg (28.0-32.0); Mean Corpuscular Volume 84.8 fL (80.0-100.0); Nucleated Red Blood Cells % 0.1 %
--- NOTE | 2025-09-10 03:21 | DVH ---
EXAM: XY KUB ABDOMEN SINGLE VIEW INDICATION: constipation COMPARISON: US ABDOMEN COMPLETE SONOGRAM on DOS: 08/10/25, CT CT AB PEL WO CON- NO ORAL OR IV on DOS: 08/10/25, CT CT AB PEL WO CON-NO ORAL OR IV on DOS: 07/11/25, CT CT AB PEL WO CON-NO ORAL OR IV on DOS: 06/09/25, CT CT AB PEL WO CON-NO ORAL OR IV on DOS: 05/18/25 TECHNIQUE: Single radiographic view of the abdomen. FINDINGS: The visualized portions of the lung bases are clear. Nonobstructive bowel gas pattern noted. There is no definite evidence for pneumoperitoneum. No abnormal calcifications noted. IMPRESSION: 1. Nonobstructive bowel gas pattern.
[2025-09-10] MEDS ORDERED: DEXTROSE (50%) 50ML SYRG IV PRN ×2 (04:45→14:45)
[2025-09-10] MEDS ORDERED: ONDANSETRON HCL 4 MG/2 ML VIAL IV PRN (04:45)
[2025-09-10] MEDS ORDERED: TEMAZEPAM 15 MG CAP PO PRN (04:45)
[2025-09-10] MEDS ORDERED: ACETAMINOPHEN 325 MG TAB PO PRN (04:45)
--- NOTE | 2025-09-10 04:45 | DVHHP2 ---
History of Present Illness Reason for Visit: Abdominal pain History of Present Illness 45-year-old male presents for evaluation of abdominal pain. Patient reports a four day history of diffuse sharp abdominal pain with associated nausea. Denies fever or chills. No diarrhea. Past Medical History Diabetes mellitus, hypertension, gastroparesis Past Surgical History Denies Family History Noncontributory Smoke: No ALCOHOL: none Drugs: Marijuana Lives: with Family Review of Systems Review of Systems Review of systems are currently negative otherwise addressed in HPI. Allergies: Coded Allergies: NO KNOWN ALLERGIES (Unverified , 09/21/20) Medications Current Medications Medications Dose Ordered Sig/Adina Route Start Time Stop Time Status Last Admin Dose Admin Sucralfate 1 gm QIDACHS PO 09/10/25 07:00 UNV Pantoprazole Sodium 40 mg DAILY IV 09/10/25 10:00 UNV Diagnostic Test (Pha) 1 strip Q6HR 09/10/25 06:00 UNV Insulin Human Regular Q6HR SC 09/10/25 06:00 UNV Dextrose 50 ml UD PRN IV 09/10/25 04:45 UNV Acetaminophen/ Hydrocodone Bitart 1 tab Q4HP PRN PO 09/10/25 04:45 UNV Temazepam 15 mg QHSP PRN PO 09/10/25 04:45 UNV Ondansetron HCl 4 mg Q4HP PRN IV 09/10/25 04:45 UNV Acetaminophen 650 mg Q6HP PRN PO 09/10/25 04:45 UNV Morphine Sulfate 2 mg Q6HPRN PRN IV 09/10/25 04:45 UNV Metoclopramide HCl 5 mg Q8HR IV 09/10/25 06:00 UNV Exam Vital Signs Vital Signs Date Time Temp Pulse Resp B/P (MAP) Pulse Ox O2 Delivery O2 Flow Rate FiO2 09/10/25 02:52 Room Air* 0 21 09/10/25 02:51 88 16 154/106 (122) 97 09/10/25 02:46 98.6 98.6 Exam Gen: 45-year-old male in mild distress Skin: Warm, dry, normal color and texture, no rash. HEENT: Normocephalic atraumatic, mucous membranes moist and pink. Neck: Cervical and supraclavicular nodes normal without enlargement, trachea is midline, thyroid gland is normal without masses. Pulmonary: Clear to auscultation and percussion bilaterally. Cardiac: Regular rate and rhythm. No murmur Abdomen: Soft, diffuse tenderness, nondistended, bowel sounds present all 4 quadrants, no guarding, no rigidity, no organomegaly. Extremities: No cyanosis, clubbing, no edema Neuro: Cranial nerves II through XII grossly intact, normal affect and speech, no focal motor deficits. Labs/Xrays ORDERING PHYSICIAN: MARTIN KOENIG MD PROCEDURE(s): KUB - KUB ABDOMEN SINGLE VIEW REASON: constipation ORDER NUMBER(s): [id number], ACCESSION NUMBER(s): [id number] EXAM: XY KUB ABDOMEN SINGLE VIEW INDICATION: constipation COMPARISON: US ABDOMEN COMPLETE SONOGRAM on DOS: 08/10/25, CT CT AB PEL WO CON- NO ORAL OR IV on DOS: 08/10/25, CT CT AB PEL WO CON-NO ORAL OR IV on DOS: 07/11/25, CT CT AB PEL WO CON-NO ORAL OR IV on DOS: 06/09/25, CT CT AB PEL WO CON-NO ORAL OR IV on DOS: 05/18/25 TECHNIQUE: Single radiographic view of the abdomen. FINDINGS: The visualized portions of the lung bases are clear. Nonobstructive bowel gas pattern noted. There is no definite evidence for pneumoperitoneum. No abnormal calcifications noted. IMPRESSION: 1. Nonobstructive bowel gas pattern. ATED BY: RAUL OLSEN MD Labs Test 09/10/25 02:30 Range/Units White Blood Count 10.1 4.4-10.8 10^3/uL Red Blood Count 4.98 4.5-5.90 10^6/uL Hemoglobin 14.2 13.5-17.5 g/dL Hematocrit 42.2 41.0-53.0 % Mean Corpuscular Volume 84.8 80.0-100.0 fL Mean Corpuscular Hemoglobin 28.5 28.0-32.0 pg Mean Corpuscular Hemoglobin Concent 33.6 32.0-36.0 g/dL Red Cell Distribution Width 14.3 11.8-14.3 % Platelet Count 440 140-450 10^3/uL Mean Platelet Volume 7.4 6.9-10.8 fL Neutrophils (%) (Auto) 80.3 H 37.0-80.0 % Lymphocytes (%) (Auto) 12.6 10.0-50.0 % Monocytes (%) (Auto) 6.4 0.0-12.0 % Eosinophils (%) (Auto) 0.1 0.0-7.0 % Basophils (%) (Auto) 0.6 0.0-2.0 % Neutrophils # (Auto) 8.1 1.6-8.6 10 ^3/uL Lymphocytes # (Auto) 1.3 0.4-5.4 10 ^3/uL Monocytes # (Auto) 0.6 0-1.3 10 ^3/uL Eosinophils # (Auto) 0 0-0.8 10 ^3/uL Basophils # (Auto) 0.1 0-0.2 10 ^3/uL Nucleated Red Blood Cells 0.1 % Sodium Level 131 L 136-145 mmol/L Potassium Level 4.3 3.5-5.1 mmol/L Chloride Level 94 L 98-107 mmol/L Carbon Dioxide Level 24 20-31 mmol/L Anion Gap 13 5-15 Blood Urea Nitrogen 25 H 9-23 mg/dL Creatinine 1.12 0.700-1.30 mg/dL Glomerular Filtration Rate Calc 82 >90 mL/min BUN/Creatinine Ratio 22.3 H 10.0-20.0 Serum Glucose 310 H 74-106 mg/dL Calcium Level 9.7 8.7-10.4 mg/dL Lipase 26 12-53 U/L SEPSIS Sepsis Screen Date sepsis recognized/suspect: Sep 10, 2025 Time Sepsis recognized/suspect: 219 Recent Procedure: No On Antibiotic Therapy: No Respiratory Rate >20: No Heart Rate >90: Yes Temp<36 C (96.8 F) or >38.3 C: No SBP <90 or MAP <65 mmHG: No New Acute Mental Status Change: No Is the patient on CPAP, BIPAP,: No Physician Orders Kub Abdomen Single View (09/10/25 02:21) Sucralfate Tab (Carafate Tab) (09/10/25 07:00) Pantoprazole (Protonix) (09/10/25 10:00) * Gi Dvh Senior It Auditor (09/10/25 04:36) Basic Metabolic Panel (09/11/25 04:00) Glucose Blood (Accu-Chek Comfort Curve T (09/10/25 06:00) Insulin R (Human) (Insulin R) (09/10/25 06:00) Dextrose 50% Syringe (09/10/25 04:45) Admit (09/10/25 04:36) Hydrocodone-Acet 5/325mg Tab ([place] 5/32 (09/10/25 04:45) Temazepam (Restoril) (09/10/25 04:45) Ondansetron Hcl (Zofran) (09/10/25 04:45) Condition: Stable (09/10/25 04:36) Acetaminophen Tablet (Tylenol Tablet) (09/10/25 04:45) Clear Liq Diet (09/10/25 Breakfast) Bedrest With Bathroom Privileg (09/10/25 04:36) Morphine Sulfate Injection (09/10/25 04:45) Metoclopramide Injection (Reglan Injecti (09/10/25 06:00) Vital Signs Date Time Temp Pulse Resp B/P (MAP) Pulse Ox O2 Delivery O2 Flow Rate FiO2 09/10/25 02:52 Room Air* 0 21 09/10/25 02:51 88 16 154/106 (122) 97 09/10/25 02:46 98.6 98 20 160/92 (114) 99 98.6 09/10/25 02:20 98.6 99 20 163/95 99 98.6 Laboratory Tests Test 09/10/25 02:30 White Blood Count 10.1 10^3/uL (4.4-10.8) Medications Medications Dose Ordered Sig/Adina Route Start Time Stop Time Status Last Admin Dose Admin Diphenhydramine HCl 50 mg ONCE ONCE IM 09/10/25 02:30 09/10/25 02:31 DC 09/10/25 03:03 50 MG Haloperidol Lactate 5 mg ONCE ONCE IM 09/10/25 02:30 09/10/25 02:31 DC 09/10/25 03:03 5 MG Assessment/Plan Assessment/Plan Assessment Intractable abdominal pain ? Gastroparesis Diabetes mellitus Plan Admit the patient to [facility] to the hospitalist GI consult Clear liquid diet Pain management Continue treatment per orders Plan discussed with: Patient My Orders [facility] Procedure Category Date Status Time Sucralfate Tab PHA 09/10/25 Logged (Carafate Tab) 07:00 Pantoprazole PHA 09/10/25 Logged (Protonix) 10:00 * Gi Dvh Senior It Auditor CONS 09/10/25 Transmitted 04:36 Basic Metabolic Panel LAB 09/11/25 Verified 04:00 Glucose Blood PHA 09/10/25 Logged (Accu-Chek Comfort 06:00 Insulin R (Human) PHA 09/10/25 Logged (Insulin R) 06:00 Dextrose 50% Syringe PHA 09/10/25 Logged 04:45 Admit ADMIT 09/10/25 Transmitted 04:36 Hydrocodone-Acet PHA 09/10/25 Logged 5/325mg Tab ([place] 04:45 Temazepam (Restoril) PHA 09/10/25 Logged 04:45 Ondansetron Hcl PHA 09/10/25 Logged (Zofran) 04:45 Condition: Stable [place] 09/10/25 In Process 04:36 Acetaminophen Tablet PHA 09/10/25 Logged (Tylenol Tablet) 04:45 Clear Liq Diet DIET 09/10/25 Transmitted Breakfast Bedrest With Bathroom [place] 09/10/25 In Process Privileg 04:36 Morphine Sulfate PHA 09/10/25 Logged Injection 04:45 Metoclopramide PHA 09/10/25 Logged Injection (Reglan 06:00 Date of Service: Sep 10, 2025 Billing Provider: CASI MALDONADO Common Visit Codes: [id number] INP/OBS CARE (MOD) CASI MALDONADO Sep 10, 2025 04:45
[2025-09-10] MEDS: ACCU-CHEK COMFORT CURVE STRIP VI SCH ×2 (06:00→17:07)
[2025-09-10] MEDS: MORPHINE SULFATE 4 MG/ML SYR/VIAL IV PRN (06:59)
[2025-09-10] MEDS: SUCRALFATE 1 GM TAB PO SCH (07:00)
[2025-09-10] MEDS: METOCLOPRAMIDE HCL 5MG/ml INJ 2ml VIAL IV SCH (07:02)
[2025-09-10] MEDS: InsuLIN REG 1unit/0.01ml Soln (100units/ml) SC SCH ×3 (07:38→22:00)
[2025-09-10 08:00] VITALS: BP 139/96; PULSE 85; PULSE 86; RESP 16; RESP 20; TEMP 98; O2SAT 98
[2025-09-10 08:43] LABS: Alanine Aminotransferase 23.0 U/L (7-40); Albumin 4.9 g/dL (3.2-4.8); Alkaline Phosphatase 99.0 U/L (46-116); Bilirubin, Direct 0.3 mg/dL (<0.3); Magnesium 2.6 mg/dL (1.6-2.6); Total Protein 8.1 g/dL (5.7-8.2)
[2025-09-10 08:44] LABS: Bilirubin, Total 1.5 mg/dL (0.2-1.0)
--- NOTE | 2025-09-10 09:49 | DVH ---
EXAM: CT CT AB PEL WO CON-NO ORAL OR IV History: abd pain Comparison Study: CT CT AB PEL WO CON-NO ORAL OR IV on DOS: 08/10/25, CT CT AB PEL WO CON-NO ORAL OR IV on DOS: 07/11/25, CT CT AB PEL WO CON-NO ORAL OR IV on DOS: 06/09/25, CT CT AB PEL WO CON-NO ORAL OR IV on DOS: 05/18/25, CT CT AB PEL WO CON-NO ORAL OR IV on DOS: 04/27/25 TECHNIQUE: Multidetector CT of the abdomen was performed from lung bases to pubic symphysis. Imaging was performed without IV contrast. Axial, coronal and sagittal multiplanar reformats were obtained from the axial data set by the technologist. Radiation Dose Information: CT Dose: CTDI volume is 6.09 mGy. Dose-length product is 368.16 mGy*cm FINDINGS: Evaluation of solid organs is limited due to lack of intravenous contrast use. FINDINGS: Lung Bases: No acute or significant lung base finding. Normal heart size. No pleural or pericardial effusion. Liver: The liver is normal in size. No focal lesions. Gallbladder and Biliary Tree: Unchanged from prior exam Spleen: Unremarkable Pancreas: The pancreas is grossly normal in appearance. Adrenal Glands: Unremarkable Kidneys: Kidneys are grossly normal without calculi or hydronephrosis. Bladder: Grossly unremarkable for degree of distention. Bowel: The stomach is grossly normal in appearance. Small bowel and colon are normal in caliber and distribution. The appendix is not visualized; however, no secondary findings of acute appendicitis identified. Diverticulosis noted. Ascites: Absent Lymphadenopathy: No mesenteric, retroperitoneal or periportal lymphadenopathy. Abdominal Wall and Mesentery: Unremarkable. Vasculature: The visualized abdominal aorta is normal in size and caliber. Evaluation of abdominal and pelvic vessels is limited due to lack of intravenous contrast. Pelvic Organs: Unremarkable Musculoskeletal: No aggressive focal bony lesions, acute fractures or dislocation. Soft tissues: Unremarkable IMPRESSION: 1. No change from prior exam. 2. Radiation optimization: All CT scans at this facility use at least one of these dose optimization techniques: automated exposure control mA and/or kV adjustment per patient size (includes targeted exams where dose is matched to clinical indication) or iterative reconstruction.
[2025-09-10] MEDS: PANTOPRAZOLE 40 MG/10 ML VIAL INJ IV SCH (10:07)
[2025-09-10] MEDS: HYDROcodone-ACET 5/325MG TAB PO PRN (10:08)
[2025-09-10] MEDS: INSULIN LANTUS (GLARGINE) 1 /0.01ml (100units/ml) SC SCH (10:16)
[2025-09-10] MEDS: ERGOCALCIFEROL 50,000 UNIT(1.25MG) CAP PO SCH (10:25)
[2025-09-10 11:00] VITALS: BP 139/72; PULSE 86; RESP 16; TEMP 97.8; O2SAT 97
[2025-09-10] MEDS: DICYCLOMINE HCL 10 MG CAP PO SCH (12:10)
--- NOTE | 2025-09-10 13:17 | DVHPNRES ---
Progress Note Date Seen: Sep 10, 2025 Resident Creating Document: FREDDY KEMP RESIDENT Medical Necessity Reason Pt with a Central, PICC or Fol: No Subjective Review of Systems Patient is 45 years old male with a past medical of hypertension, diabetes mellitus type 2, gastroparesis homozygous came with a complaint of abdominal pain. As per patient he has been having abdominal pain for 3 days, epigastric region, 10/10, sharp, no relieving factor. Patient also endorsed some nausea and vomiting nonbloody, patient also reported he has been having constipation for last 1 week. Patient denied any fever, joint redness or swelling, shortness of breath, dysarthria or change in vision. Initial lab workup revealed serum glucose 326, hemoglobin A1c 9.0, CT abdomen and pelvis no acute changes. X-ray abdomen nonobstructive bowel gas patient PMH-hypertension, diabetes mellitus type 2, gastroparesis , PO2 PSH- denies Allergy-NKDA Personal History/ Social History- smokes marijuana, lives with the ROS Cardiovascular- deny acute chest pain or shortness of breath or cough or palpitation Respiratory denies cough or short of breath or wheezing Musculoskeletal-denies acute joint swelling or tenderness or redness Neurological- denies acute dysarthria, dysphagia, change in vision Psychiatry- denies depression or SI or HI Skin- denies acute rash or purpura Patient is seen today at bedside Labs and chart reviewed Patient complained of ongoing abdominal pain in the epigastric region Patient on metoclopramide Ordered insulin lispro 6 dose, Patient on insulin sliding scale and Lantus Patient on IV with normal saline Patient was seen by Gastroenterology, recommendation reviewed and appreciated, patient is a scheduled for colonoscopy with the GI, continue Protonix and Zofran. Full liquid diet, advance as tolerated Objective vital signs Vital Sign Date Time Temp Pulse Resp B/P (MAP) Pulse Ox O2 Delivery O2 Flow Rate FiO2 09/10/25 08:00 86 09/10/25 08:00 16 Room Air* 0 21 09/10/25 07:29 139/86 09/10/25 02:51 97 09/10/25 02:46 98.6 98.6 medications Current Medications Medications Dose Ordered Sig/Adina Route Start Time Stop Time Status Last Admin Dose Admin Sucralfate 1 gm QIDACHS PO 09/10/25 07:00 09/10/25 10:25 1 GM Pantoprazole Sodium 40 mg DAILY IV 09/10/25 10:00 09/10/25 10:07 40 MG Diagnostic Test (Pha) 1 strip Q6HR 09/10/25 06:00 09/10/25 11:34 1 STRIP Insulin Human Regular Q6HR SC 09/10/25 06:00 09/10/25 11:40 8 UNITS Dextrose 50 ml UD PRN IV 09/10/25 04:45 Acetaminophen/ Hydrocodone Bitart 1 tab Q4HP PRN PO 09/10/25 04:45 09/10/25 10:08 1 TAB Temazepam 15 mg QHSP PRN PO 09/10/25 04:45 Ondansetron HCl 4 mg Q4HP PRN IV 09/10/25 04:45 Acetaminophen 650 mg Q6HP PRN PO 09/10/25 04:45 Morphine Sulfate 2 mg Q6HPRN PRN IV 09/10/25 05:00 09/10/25 06:59 2 MG Metoclopramide HCl 5 mg Q8HR IV 09/10/25 06:00 09/10/25 07:02 5 MG Insulin Glargine 20 units QAM SC 09/10/25 08:45 09/10/25 10:16 20 UNITS Ergocalciferol 50,000 unit Q7D PO 09/10/25 09:45 09/10/25 10:25 50,000 UNIT Sodium Chloride 1,000 ml @ 75 mls/hr [id number] IV 09/10/25 12:15 Examination General examination- awake, alert, HEENT- PEERLA, no acute nasal discharge Cardiovascular- S1-S2 audible, rate and rhythm regular, no murmur Respiratory- CTAB, no wheeze or rhonchi Gastrointestinal-epigastric tenderness positive, bowel sound+. Nondistended Musculoskeletal-no acute joint swelling or tenderness or redness Lower extremity- no leg Neurological- cranial nerves intact, no acute dysarthria or dysphagia Psychiatry- denies depression or SI or HI Skin- no acute rash or purpura laboratory and microbiology Laboratory Tests 09/10/25 02:30 Test 09/10/25 02:30 Range/Units Serum Glucose 310 H 74-106 mg/dL Problem List/Assessment/Plan Problem List/Assessment/Plan Assessment and plan # suspected cannabinoids induced intractable nausea and vomiting and abdominal pain # acute intractable abdominal pain with nausea and vomiting likely due to gastroparesis/gastroenteritis # suspected acute exertional PUD #SIRS -CT abdomen no acute changes -continue IV fluid as -continue insulin sliding scale and Lantus as prescribed -monitor blood sugar -continue IV metoprolol as prescribed -continue pantoprazole as prescribed -continue sucralfate as prescribed -GI recommendation reviewed and appreciated -patient already has a scheduled for colonoscopy with GI # diabetes mellitus type 2 with hyperglycemia -hemoglobin A1c 9.0 -continue saline sliding scale and Lantus as prescribed -IV normal saline as -monitor blood # hypertension -monitor blood pressure # overweight, BMI 26.5 -counseled about has been abuse Goals of care, Code status Ful Code ; discussed with >15 minutes PUD prophylaxis: Pantoprazole DVT prophylaxis: Lovenox Plan discussed with Dr. Vriamontes, nursing staff, Total time spent on patient evaluation, chart review, assessment and plan, discussion discussion >35 minutes Plan discussed with: Patient, Other (RN) My Orders My Orders Orders - FREDDY KEMP Procedure Category Date Status Time Insulin Lantus PHA 09/10/25 In Process (Glargine) (Lantus) 08:45 Drug Screen LAB 09/10/25 Logged 08:40 Urinalysis LAB 09/10/25 Logged 08:40 Ergocalciferol PHA 09/10/25 In Process (Vitamin D 50,000 09:45 Sodium Chloride 0.9% PHA 09/10/25 In Process 12:15 Visit Coding STANDARD RES Billing Provider: RAFAEL VARGHESE MD Date of Service if different f: Sep 10, 2025 Common Visit Codes: [id number] INP/OBS CARE(HIGH) FREDDY KEMP Sep 10, 2025 13:17
--- NOTE | 2025-09-10 14:03 | DVHINCON2 ---
GI Consult Consult Note GI consult note Date of Consultation: 09/10/2020 Chief Complaint: Abdominal pain Referring Physician: Raymond GARCIA H&P: 45-year-old male with past medical history of hypertension, DM type 2, gastroparesis admitted with complains of abdominal pain, for the past three days, mostly in the epigastric area. Patient also has complains of nausea and vomiting, denies hematemesis. Patient admits to having constipation for the past one-week, last bowel movement three days ago. No melena or red blood in stool. Patient has had multiple EGDs and is scheduled for an outpatient colonoscopy in December of 2025 Operative Report DATE OF OPERATION: 04/18/25 PROCEDURE: Upper Endoscopy with biopsy. PREOPERATIVE INDICATION: The patient is a 44 -year-old male undergoing endoscopy for recurrent nausea vomiting and abdominal pain POSTOPERATIVE DIAGNOSES: 1. 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 Minimal antral gastritis otherwise normal examination up to the 2nd and 3rd part of the duodenal with good bile drainage and no active bleeding PROCEDURE PERFORMED BY: Janneth Dasilva Pathology dated shows mild chronic inactive gastritis Past Medical History: -hypertension, diabetes mellitus type 2, gastroparesis , PO2 Past Surgical History: Denies Social History: NO smoking, drinking ETOH + marijuana Family History: Noncontributory Review of Systems: Constitutional: no fever, chill, weight loss HEENT: no eye pain, no hearing loss, no oral lesion, no scleral icterus Heart: no chest pain, no chest pressure Lung: no cough, no dyspnea with exertion Abdomen: see HPI Physical exam: General: NAD, AAOX3 Chest: lung johnson clear to auscultation Heart: RRR, no murmur Abdomen: non-distended, no tenderness to palpation, +BS Labs: Labs Test 09/10/25 10:11 09/10/25 02:30 Range/Units POC Glucose 306 H 70-106 mg/dl White Blood Count 10.1 4.4-10.8 10^3/uL Red Blood Count 4.98 4.5-5.90 10^6/uL Hemoglobin 14.2 13.5-17.5 g/dL Hematocrit 42.2 41.0-53.0 % Mean Corpuscular Volume 84.8 80.0-100.0 fL Mean Corpuscular Hemoglobin 28.5 28.0-32.0 pg Mean Corpuscular Hemoglobin Concent 33.6 32.0-36.0 g/dL Red Cell Distribution Width 14.3 11.8-14.3 % Platelet Count 440 140-450 10^3/uL Mean Platelet Volume 7.4 6.9-10.8 fL Neutrophils (%) (Auto) 80.3 H 37.0-80.0 % Lymphocytes (%) (Auto) 12.6 10.0-50.0 % Monocytes (%) (Auto) 6.4 0.0-12.0 % Eosinophils (%) (Auto) 0.1 0.0-7.0 % Basophils (%) (Auto) 0.6 0.0-2.0 % Neutrophils # (Auto) 8.1 1.6-8.6 10 ^3/uL Lymphocytes # (Auto) 1.3 0.4-5.4 10 ^3/uL Monocytes # (Auto) 0.6 0-1.3 10 ^3/uL Eosinophils # (Auto) 0 0-0.8 10 ^3/uL Basophils # (Auto) 0.1 0-0.2 10 ^3/uL Nucleated Red Blood Cells 0.1 % Sodium Level 131 L 136-145 mmol/L Potassium Level 4.3 3.5-5.1 mmol/L Chloride Level 94 L 98-107 mmol/L Carbon Dioxide Level 24 20-31 mmol/L Anion Gap 13 5-15 Blood Urea Nitrogen 25 H 9-23 mg/dL Creatinine 1.12 0.700-1.30 mg/dL Glomerular Filtration Rate Calc 82 >90 mL/min BUN/Creatinine Ratio 22.3 H 10.0-20.0 Serum Glucose 310 H 74-106 mg/dL Hemoglobin A1c 9.0 H <5.7 % A1C Calcium Level 9.7 8.7-10.4 mg/dL Magnesium Level 2.6 1.6-2.6 mg/dL Total Bilirubin 1.5 H 0.2-1.0 mg/dL Direct Bilirubin 0.3 <0.3 mg/dL Aspartate Amino Transferase (AST) 29 13-40 U/L Alanine Aminotransferase (ALT) 23 7-40 U/L Alkaline Phosphatase 99 46-116 U/L C-Reactive Protein High Sensitivity 0.13 <1.0 mg/dL Total Protein 8.1 5.7-8.2 g/dL Albumin 4.9 H 3.2-4.8 g/dL Lipase 26 12-53 U/L Vitamin B12 Level 663 211-911 pg/mL Vitamin D 25-Hydroxy 22.1 L 30.0-100 ng/mL Folic Acid 26.30 >5.38 ng/mL Thyroid Stimulating Hormone (TSH) 0.38 L 0.55-4.78 uIU/mL Imaging: CT abdomen pelvis IMPRESSION: 1. No change from prior exam. KUB IMPRESSION: 1. Nonobstructive bowel gas pattern. MRCP 08/11/2025 IMPRESSION: 1. No evidence of common duct obstructing stone Abdominal ultrasound 08/10/2025 IMPRESSION: Diffuse hepatic steatosis.Dilated 8 mm common duct and distended gallbladder. Please correlate with laboratory values and consider MRCP if warranted. Assessment: Abdominal pain Gastritis Hepatic steatosis Plan: Discussed with Dr. Dasilva Symptomatic treatment recommended at this time Protonix and Zofran Full liquid diet advance as tolerated Outpatient follow-up for colonoscopy that is already been scheduled Plan discussed with patient and RN Thank you for this consult Date of Service: Sep 10, 2025 Billing Provider: EVA PRICE Common Visit Codes: CONSULT ONLY Consultation Codes: [id number] CONSULT <60MIN EVA PRICE Sep 10, 2025 14:03
[2025-09-10 14:14] LABS: Hematocrit 42.4 % (41.0-53.0); Hemoglobin 14.6 g/dL (13.5-17.5); Mean Corpuscular Hemoglobin 28.8 pg (28.0-32.0); Mean Corpuscular Volume 83.8 fL (80.0-100.0); Nucleated Red Blood Cells % 0.1 %
[2025-09-10] MEDS: SODIUM CHLORIDE 0.9% 1,000 ML IV SCH (14:21)
[2025-09-10 14:24] LABS: Anion Gap 9 (5-15); Carbon Dioxide 30 mmol/L (20-31); Potassium 3.8 mmol/L (3.5-5.1)
[2025-09-10 14:25] LABS: Calcium 9.6 mg/dL (8.7-10.4); Chloride 95 mmol/L (98-107); Sodium 134 mmol/L (136-145)
[2025-09-10 14:30] LABS: BUN/Creatinine Ratio 19.6 (10.0-20.0); Blood Urea Nitrogen 21 mg/dL (9-23)
[2025-09-10 14:31] LABS: Glucose 175 mg/dL (74-106); Magnesium 2.7 mg/dL (1.6-2.6)
[2025-09-10] MEDS ORDERED: ERGOCALCIFEROL 50,000 UNIT(1.25MG) CAP PO SCH (14:45)
[2025-09-10] MEDS: POTASSIUM EFFERVESENT TAB 25 MEQ PO ONE (17:04)
[2025-09-10 20:00] VITALS: PULSE 78; RESP 18; O2SAT 98
[2025-09-10 21:00] VITALS: BP 122/74; PULSE 78; RESP 18; TEMP 98.2; O2SAT 98
[2025-09-11 01:00] VITALS: BP 111/69; PULSE 68; RESP 16; TEMP 98.5; O2SAT 95
[2025-09-11] MEDS: KETOROLAC TROMETH 30 MG/ML 1ML VIAL IV ONE (01:30)
[2025-09-11 06:02] LABS: Urine Protein, UAD TRACE (Negative)
[2025-09-11 06:02] LABS: Potassium 3.9 mmol/L (3.5-5.1)
[2025-09-11 06:03] LABS: Anion Gap 7 (5-15); Calcium 9.2 mg/dL (8.7-10.4); Carbon Dioxide 31 mmol/L (20-31); Chloride 97 mmol/L (98-107); Sodium 135 mmol/L (136-145)
[2025-09-11 06:08] LABS: BUN/Creatinine Ratio 17.2 (10.0-20.0); Blood Urea Nitrogen 16 mg/dL (9-23)
[2025-09-11 06:10] LABS: Glucose 170 mg/dL (74-106)
[2025-09-11 06:24] LABS: Amphetamine Screen, Urine Neg (NEGATIVE); Barbiturate Scree,Urine Neg (NEGATIVE); Benzodiazephine Screen, Urine Neg (NEGATIVE); Opiate Scree,Urine Pos (NEGATIVE); Phencyclidine Screen, Urine Neg (NEGATIVE)
[2025-09-11 06:25] LABS: Cannabinoid Screen, Urine Pos (NEGATIVE); Cocaine Screen, Urine Neg (NEGATIVE)
[2025-09-11 09:00] VITALS: BP 144/89; PULSE 79; RESP 16; TEMP 98.1; O2SAT 97
[2025-09-11] MEDS: ENOXAPARIN SOD 40 MG/0.4 ML SYRINGE SC SCH (09:28)
--- NOTE | 2025-09-11 14:50 | DVHPN2 ---
Subjective Patient admits to feeling better Patient now says that his symptoms of abdominal pain worsened after episode of hypoglycemia Changes from previous H/P or p: No Changes Objective Vitals Vital Signs Date Time Temp Pulse Resp B/P (MAP) Pulse Ox O2 Delivery O2 Flow Rate FiO2 09/11/25 09:00 98.1 79 16 144/89 (107) 97 98.1 09/10/25 20:00 Room Air* 0 21 Intake/Output Intake and Output 09/11/25 07:00 Intake Total 1680 ml Output Total 500 ml Balance 1180 ml Intake Oral 1680 ml Output Urine Total 500 ml # Voids 1 Exam General: NAD, AAOX3 Chest: lung johnson clear to auscultation Heart: RRR, no murmur Abdomen: non-distended, no tenderness to palpation, +BS Medications Current Medications Medications Dose Ordered Sig/Adina Route Start Time Stop Time Status Last Admin Dose Admin Sucralfate 1 gm QIDACHS PO 09/10/25 07:00 09/11/25 11:50 1 GM Pantoprazole Sodium 40 mg DAILY IV 09/10/25 10:00 09/11/25 09:27 40 MG Acetaminophen/ Hydrocodone Bitart 1 tab Q4HP PRN PO 09/10/25 04:45 09/11/25 06:32 1 TAB Temazepam 15 mg QHSP PRN PO 09/10/25 04:45 Ondansetron HCl 4 mg Q4HP PRN IV 09/10/25 04:45 Acetaminophen 650 mg Q6HP PRN PO 09/10/25 04:45 Morphine Sulfate 2 mg Q6HPRN PRN IV 09/10/25 05:00 09/10/25 15:55 2 MG Metoclopramide HCl 5 mg Q8HR IV 09/10/25 06:00 09/11/25 06:28 5 MG Insulin Glargine 20 units QAM SC 09/10/25 08:45 09/11/25 06:26 20 UNITS Ergocalciferol 50,000 unit Q7D PO 09/10/25 09:45 09/10/25 10:25 50,000 UNIT Sodium Chloride 1,000 ml @ 75 mls/hr [id number] IV 09/10/25 12:15 09/10/25 14:21 75 MLS/HR Enoxaparin Sodium 40 mg DAILY SC 09/11/25 10:00 09/11/25 09:28 40 MG Ergocalciferol 50,000 unit Q7D PO 09/10/25 14:45 UNV Diagnostic Test (Pha) 1 strip ACHS 09/10/25 17:00 09/11/25 11:37 1 STRIP Insulin Human Regular HS SC 09/10/25 22:00 Insulin Human Regular AC SC 09/10/25 17:00 09/11/25 11:37 6 UNITS Dextrose 50 ml UD PRN IV 09/10/25 14:45 Laboratory Results Laboratory Tests 09/10/25 13:56 09/11/25 04:59 Chemistry Test 09/11/25 04:59 Calcium Level 9.2 mg/dL (8.7-10.4) Urinalysis Test 09/11/25 05:40 Urine Color Yellow (Yellow) Urine Clarity Clear (Clear) Urine pH 6.5 (5.0-9.0) Urine Specific [place] 1.026 (1.001-1.035) Urine Protein Trace (Negative) H Urine Ketones 1+ (Negative) H Urine Blood Negative /uL (Negative) Urine Nitrite Negative (Negative) Urine Bilirubin Negative (Negative) Urine Urobilinogen 2 mg/dL (Negative) H Urine Leukocyte Esterase Negative /uL (Negative) Urine RBC 1 /hpf (0 - 3) Urine Microscopic WBC < 1 /HPF (0-3) Urine Squamous Epithelial Cells None seen /hpf (<5) Urine Bacteria None seen /hpf (None Seen) Urine Glucose 1+ mg/dL (Normal) H Labs and/or images reviewed: Labs reviewed by me, Image(s) reviewed by me Assessment/Plan Assessment/Plan Abdominal pain improving Gastritis Hepatic steatosis Plan: Discussed with Dr. Dasilva Protonix Discharge planning in process Outpatient GI follow-up recommended Plan discussed with: Patient Date of Service: Sep 11, 2025 Billing Provider: EVA PRICE Common Visit Codes: [id number] INP/OBS CARE(HIGH) EVA PRICE Sep 11, 2025 14:50
--- NOTE | 2025-09-11 15:04 | DVHDSRES ---
Discharge Summary Date of Admission Resident Creating Document: FREDDY KEMP RESIDENT Sep 10, 2025 at 04:36 Date of Discharge: Sep 11, 2025 Admitting Diagnosis Cannabinoids induced intractable abdominal pain and nausea and vomiting Acute intractable abdominal likely due to gastroenteritis/gastroparesis Labs/Diagnostic Data: Laboratory Results Test 09/11/25 11:24 09/11/25 05:40 09/11/25 04:59 09/10/25 13:56 POC Glucose 250 mg/dl (70-106) Urine Color Yellow (Yellow) Urine Clarity Clear (Clear) Urine pH 6.5 (5.0-9.0) Urine Specific [place] 1.026 (1.001-1.035) Urine Protein Trace (Negative) Urine Ketones 1+ (Negative) Urine Blood Negative /uL (Negative) Urine Nitrite Negative (Negative) Urine Bilirubin Negative (Negative) Urine Urobilinogen 2 mg/dL (Negative) Urine Leukocyte Esterase Negative /uL (Negative) Urine RBC 1 /hpf (0 - 3) Urine Microscopic WBC < 1 /HPF (0-3) Urine Squamous Epithelial Cells None seen /hpf (<5) Urine Bacteria None seen /hpf (None Seen) Urine Glucose 1+ mg/dL (Normal) Urine Opiates Screen Pos (NEGATIVE) Urine Fentanyl Screen Neg (NEGATIVE) Urine Barbiturates Screen Neg (NEGATIVE) Urine Phencyclidine Screen Neg (NEGATIVE) Urine Amphetamines Screen Neg (NEGATIVE) Urine Benzodiazepines Screen Neg (NEGATIVE) Urine Cocaine Screen Neg (NEGATIVE) Urine Cannabinoids Screen Pos (NEGATIVE) Sodium Level 135 mmol/L (136-145) Potassium Level 3.9 mmol/L (3.5-5.1) Chloride Level 97 mmol/L (98-107) Carbon Dioxide Level 31 mmol/L (20-31) Anion Gap 7 (5-15) Blood Urea Nitrogen 16 mg/dL (9-23) Creatinine 0.93 mg/dL (0.700-1.30) Glomerular Filtration Rate Calc 102 mL/min (>90) BUN/Creatinine Ratio 17.2 (10.0-20.0) Serum Glucose 170 mg/dL (74-106) Calcium Level 9.2 mg/dL (8.7-10.4) White Blood Count 10.9 10^3/uL (4.4-10.8) Red Blood Count 5.07 10^6/uL (4.5-5.90) Hemoglobin 14.6 g/dL (13.5-17.5) Hematocrit 42.4 % (41.0-53.0) Mean Corpuscular Volume 83.8 fL (80.0-100.0) Mean Corpuscular Hemoglobin 28.8 pg (28.0-32.0) Mean Corpuscular Hemoglobin Concent 34.4 g/dL (32.0-36.0) Red Cell Distribution Width 14.0 % (11.8-14.3) Platelet Count 411 10^3/uL (140-450) Mean Platelet Volume 7.0 fL (6.9-10.8) Neutrophils (%) (Auto) 67.2 % (37.0-80.0) Lymphocytes (%) (Auto) 21.7 % (10.0-50.0) Monocytes (%) (Auto) 10.2 % (0.0-12.0) Eosinophils (%) (Auto) 0.3 % (0.0-7.0) Basophils (%) (Auto) 0.6 % (0.0-2.0) Neutrophils # (Auto) 7.3 10 ^3/uL (1.6-8.6) Lymphocytes # (Auto) 2.4 10 ^3/uL (0.4-5.4) Monocytes # (Auto) 1.1 10 ^3/uL (0-1.3) Eosinophils # (Auto) 0 10 ^3/uL (0-0.8) Basophils # (Auto) 0.1 10 ^3/uL (0-0.2) Nucleated Red Blood Cells 0.1 % Magnesium Level 2.7 mg/dL (1.6-2.6) Test 09/10/25 02:30 Hemoglobin A1c 9.0 % A1C (<5.7) Total Bilirubin 1.5 mg/dL (0.2-1.0) Direct Bilirubin 0.3 mg/dL (<0.3) Aspartate Amino Transferase (AST) 29 U/L (13-40) Alanine Aminotransferase (ALT) 23 U/L (7-40) Alkaline Phosphatase 99 U/L (46-116) C-Reactive Protein High Sensitivity 0.13 mg/dL (<1.0) Total Protein 8.1 g/dL (5.7-8.2) Albumin 4.9 g/dL (3.2-4.8) Lipase 26 U/L (12-53) Vitamin B12 Level 663 pg/mL (211-911) Vitamin D 25-Hydroxy 22.1 ng/mL (30.0-100) Folic Acid 26.30 ng/mL (>5.38) Thyroid Stimulating Hormone (TSH) 0.38 uIU/mL (0.55-4.78) Other Laboratory Tests 09/11/25 04:59 09/10/25 13:56 Brief Hx & Hospital Course: Patient is 45 years old male with a past medical of hypertension, diabetes mellitus type 2, gastroparesis homozygous came with a complaint of abdominal pain. As per patient he has been having abdominal pain for 3 days, epigastric region, 10/10, sharp, no relieving factor. Patient also endorsed some nausea and vomiting nonbloody, patient also reported he has been having constipation for last 1 week. Patient denied any fever, joint redness or swelling, shortness of breath, dysarthria or change in vision. Initial lab workup revealed serum glucose 326, hemoglobin A1c 9.0, CT abdomen and pelvis no acute changes. X-ray abdomen nonobstructive bowel gas patient Hospital course-during hospital course patient was treated conservatively with the IV fluid and pain medication. Patient's symptoms improved. Patient denied any abdominal pain on discharge. Patient was hemodynamically stable on discharge. All questions answered. Patient was advised to follow up DC clinic/PCP/md pediatric allergist/alining inspector. General examination- awake, alert, HEENT- PEERLA, no acute nasal discharge Cardiovascular- S1-S2 audible, rate and rhythm regular, no murmur Respiratory- CTAB, no wheeze or rhonchi Gastrointestinal-nontender,, bowel sound+. Nondistended Musculoskeletal-no acute joint swelling or tenderness or redness Lower extremity- no leg Neurological- cranial nerves intact, no acute dysarthria or dysphagia Psychiatry- denies depression or SI or HI Skin- no acute rash or purpura Assessment acute gastroenteritis, infectious etiology likely. # acute gastroparesis exacerbation intractable nausea and vomiting and abdominal pain, due to above # suspected acute exertional PUD # cannabinoids hyperemesis, possible #SIRS without AOD # diabetes mellitus type 2 with hyperglycemia # hypertension # overweight, BMI 26.5 Plan Patient was advised to follow up with the clinic/PCP/alining inspector/gastroenterology Patient was advised to follow up with the alining inspector for possible insulin pump Resume home medications Patient was counseled about the importance of med compliance Counseled about healthy lifestyle, effect of substance abuse on health Operations or Procedures [address] [address] Ph: [phone] DIAGNOSTIC IMAGING Diagnostic Imaging Report : [id number] Signed PATIENT: ROB DOUGLAS ACCT: [id number] UNIT: [id number] : 1980 LOC: OVERFLOW ROOM / BED: 1018-ER / A AGE / SEX: 45 / M ADM STATUS: ADM IN SERVICE [id number] ORDERING PHYSICIAN: THOMAS ADAMS RESIDENT PROCEDURE(s): ABPL - CT AB PEL WO CON-NO ORAL OR IV REASON: abd pain ORDER NUMBER(s): [id number], ACCESSION NUMBER(s): [id number] EXAM: CT CT AB PEL WO CON-NO ORAL OR IV History: abd pain Comparison Study: CT CT AB PEL WO CON-NO ORAL OR IV on DOS: 08/10/25, CT CT AB PEL WO CON-NO ORAL OR IV on DOS: 07/11/25, CT CT AB PEL WO CON-NO ORAL OR IV on DOS: 06/09/25, CT CT AB PEL WO CON-NO ORAL OR IV on DOS: 05/18/25, CT CT AB PEL WO CON-NO ORAL OR IV on DOS: 04/27/25 TECHNIQUE: Multidetector CT of the abdomen was performed from lung bases to pubic symphysis. Imaging was performed without IV contrast. Axial, coronal and sagittal multiplanar reformats were obtained from the axial data set by the technologist. Radiation Dose Information: CT Dose: CTDI volume is 6.09 mGy. Dose-length product is 368.16 mGy*cm FINDINGS: Evaluation of solid organs is limited due to lack of intravenous contrast use. FINDINGS: Lung Bases: No acute or significant lung base finding. Normal heart size. No pleural or pericardial effusion. Liver: The liver is normal in size. No focal lesions. Gallbladder and Biliary Tree: Unchanged from prior exam Spleen: Unremarkable Pancreas: The pancreas is grossly normal in appearance. Adrenal Glands: Unremarkable Kidneys: Kidneys are grossly normal without calculi or hydronephrosis. Bladder: Grossly unremarkable for degree of distention. Bowel: The stomach is grossly normal in appearance. Small bowel and colon are normal in caliber and distribution. The appendix is not visualized; however, no secondary findings of acute appendicitis identified. Diverticulosis noted. Ascites: Absent Lymphadenopathy: No mesenteric, retroperitoneal or periportal lymphadenopathy. Abdominal Wall and Mesentery: Unremarkable. Vasculature: The visualized abdominal aorta is normal in size and caliber. Evaluation of abdominal and pelvic vessels is limited due to lack of intravenous contrast. Pelvic Organs: Unremarkable Musculoskeletal: No aggressive focal bony lesions, acute fractures or dislocation. Soft tissues: Unremarkable IMPRESSION: 1. No change from prior exam. 2. Radiation optimization: All CT scans at this facility use at least one of these dose optimization techniques: automated exposure control mA and/or kV adjustment per patient size (includes targeted exams where dose is matched to clinical indication) or iterative reconstruction. ATED BY: LUIGI CRUZ MD DICTATED DATE/TIME: 09/10/25945 SIGNED BY: LUIGI CRUZ MD SIGNED DATE/TIME: 09/10/25945 CC: [place] [id number] Ph: [phone] DIAGNOSTIC IMAGING Diagnostic Imaging Report : [id number] Signed PATIENT: ROB DOUGLAS ACCT: [id number] UNIT: [id number] : 1980 LOC: ER ROOM / BED: / AGE / SEX: 45 / M ADM STATUS: REG ER SERVICE 0 ORDERING PHYSICIAN: MARTIN KOENIG MD PROCEDURE(s): KUB - KUB ABDOMEN SINGLE VIEW REASON: constipation ORDER NUMBER(s): [id number], ACCESSION NUMBER(s): [id number] EXAM: XY KUB ABDOMEN SINGLE VIEW INDICATION: constipation COMPARISON: US ABDOMEN COMPLETE SONOGRAM on DOS: 08/10/25, CT CT AB PEL WO CON- NO ORAL OR IV on DOS: 08/10/25, CT CT AB PEL WO CON-NO ORAL OR IV on DOS: 07/11/25, CT CT AB PEL WO CON-NO ORAL OR IV on DOS: 06/09/25, CT CT AB PEL WO CON-NO ORAL OR IV on DOS: 8/29/25 TECHNIQUE: Single radiographic view of the abdomen. FINDINGS: The visualized portions of the lung bases are clear. Nonobstructive bowel gas pattern noted. There is no definite evidence for pneumoperitoneum. No abnormal calcifications noted. IMPRESSION: 1. Nonobstructive bowel gas pattern. ATED BY: RAUL POE MD DICTATED DATE/TIME: 09/10/25318 SIGNED BY: RAUL POE MD SIGNED DATE/TIME: 09/10/25318 CC: Condition at Discharge: Stable Final Diagnosis/Problems List acute gastroenteritis, infectious etiology likely. # acute gastroparesis exacerbation intractable nausea and vomiting and abdominal pain, due to above # suspected acute exertional PUD # cannabinoids hyperemesis, possible #SIRS without AOD # diabetes mellitus type 2 with hyperglycemia # hypertension # overweight, BMI 26.5 Discharge Disposition: Home Discharge Instruct/Medications Diet: Consistent carbohydrate, Cardiac 2g Na,low cholest Activity: No Restrictions, As Tolerated Follow Up/Referral: DC clinic PCP [employer] Mess Attendant for possible insulin pump Medications: As per EMR Scheduled Alum & Mag Hydrox-Simethicone (Gi Cocktail), 55 ML PO TID Amlodipine Besylate (Norvasc Tablet), 5 MG PO DAILY Amoxicillin & Pot Clavulanate (Augmentin Tablet), 875 MG PO BID Dicyclomine Hcl (Bentyl Capsule), 1 CAP PO TID Ergocalciferol (Vitamin D 48022 Unit), 50,000 UNIT PO QWEEKLY Insulin Glargine (Lantus), 80 UNIT SC HS Insulin Glargine (Lantus Solostar), 10 UNIT SC HS Metoclopramide Hcl (Metoclopramide Hcl), 10 MG PO BID Metoclopramide Hcl (Metoclopramide Hcl), 10 MG PO DAILY Mupirocin (Pseudomonas Fluores (Mupirocin), 2 % EX BID Pantoprazole Sodium Sesquihydr (Protonix), 40 MG PO DAILY Sucralfate (Carafate Susp), 1 GM PO BID@0600,2200 Scheduled PRN Acetaminophen (Acetaminophen), 650 MG PO Q6HP PRN Hydrocodone-Acetaminophen (Hydrocodone Bitartrate/AC 5-325 mg), 1 TAB PO TIDP PRN Insulin Aspart (Novolog Flexpen Relion), 1-10 UNIT SC TIDWM PRN Miscellaneous Medications Pramipexole Dihydrochloride (Mirapex Er), 3.75 MG PO, (Reported) Durable Medical Equipment Blood Glucose Monitoring Suppl ([employer] VERIO REFLECT w/Device), KIT XX TIDWM PRN, (DME) Discharge Statement: "Patient was advised to return to the ER or call 911 if any headaches, dizziness, shortness of breath, chest pain, abdominal pain, bleeding, fevers, or worsening of medical condition. Patient was counseled about treatment plan, medications, possible side effects, patientverbalized understanding. All questions were answered to the best of my ability. This discharge took greater then 30 minutes in planning, reviewing documentation, counseling the patient, and discussing with other team members." ASSESSMENT ASSESSMENT Assessment # suspected cannabinoids induced intractable nausea and vomiting and abdominal pain # acute intractable abdominal pain with nausea and vomiting likely due to gastroparesis/gastroenteritis # suspected acute exertional PUD Visit Coding STANDARD RES Billing Provider: RAFAEL VARGHESE MD Date of Service if different f: Sep 11, 2025 Common Visit Codes: 09854-IVH/OBS DISCH DAY >30min FREDDY KEMP RESIDENT Sep 11, 2025 15:04 RAFAEL VARGHESE MD Sep 13, 2025 09:17
== END 2025-09-11 12:54 | disposition home or self-care (01) | DRG 48 ==
LOC: EDBD 02:09 → ER 02:09 → OVERFLOW 04:36
PROVIDERS: ADMIT Student in an Organized Health Care Education/Training Program; ATTEND Student in an Organized Health Care Education/Training Program
DX: E11.43 Type 2 diabetes mellitus with diabetic autonomic (poly)neuropathy (principal); E11.65 Type 2 diabetes mellitus with hyperglycemia; E66.3 Overweight; R65.10 Systemic inflammatory response syndrome (SIRS) of non-infectious origin without acute organ dysfunction; G89.29 Other chronic pain; I10 Essential (primary) hypertension; K76.0 Fatty (change of) liver, not elsewhere classified; K52.9 Noninfective gastroenteritis and colitis, unspecified; Z68.26 Body mass index [BMI] 26.0-26.9, adult; K31.84 Gastroparesis; K29.70 Gastritis, unspecified, without bleeding; K82.8 Other specified diseases of gallbladder
CPT/HCPCS: 36415; 74018; 74176; 80048; 80076; 80307; 81001; 82306; 82607; 82746; 82962; 83036; 83690; 83735; 84443; 85025; 86141; G0378; J1815; J1885; J2470